=== PATIENT | female | born 1955 ===

== ENCOUNTER 2016-12-17 23:56 | Inpatient (IN) | payer MEDICAID ==
[2016-12-17 23:56] VITALS: BMI 19.5
[2016-12-18 00:55] LABS: BASO % 0.1 % (0.0-2.0); EOS % 0.2 % (0.0-4.0); HEMATOCRIT 31.7 % (34.0-47.0); LYMPH % 9.7 % (20.0-40.0); MEAN CORPUSCULAR HEMOGLOBIN 26.7 pg (27.0-31.0); MEAN CORPUSCULAR HGB CONC 30.9 g/dL (33.0-37.0); MEAN PLATELET VOLUME 7.5 fl (7.2-11.7); MONO # 0.9 K/uL (0.0-0.8); NEUT # 8.2 K/uL (1.8-7.0); NRBC % 0.1 % (0.0-0.0); PLATELET COUNT 276 K/uL (130-400); RED CELL DISTRIBUTION WIDTH 16.9 % (11.5-14.5); WHITE BLOOD COUNT 10.2 K/uL (4.8-10.8)
[2016-12-18 00:56] LABS: MEAN CELL VOLUME 86.5 fl (81.0-99.0)
[2016-12-18] MEDS ORDERED: Sodium Chloride 0.9% 1,000 ML IV STA (01:08)
[2016-12-18 01:14] LABS: PARTIAL THROMBOPLASTIN TIME 24.9 SECONDS (23.3-32.5)
[2016-12-18 01:18] LABS: ALB/GLOB RATIO 0.9 (1.0-2.1); ALKALINE PHOSPHATASE 105 U/L (38-126); ALT/SGPT 21 U/L (9-52); AST/SGOT 18 U/L (14-36); BILIRUBIN,TOTAL 0.2 mg/dl (0.2-1.3); BLOOD UREA NITROGEN 36 mg/dl (7-17); CARBON DIOXIDE 25 mmol/L (22-30); CHLORIDE 102 mmol/L (98-107); GFR AFRICAN-AMERICAN > 60; GLUCOSE,RANDOM 354 mg/dL (65-105); POTASSIUM 4.7 MMOL/L (3.6-5.0); SODIUM 133 mmol/l (132-148); TOTAL PROTEIN 6.3 G/DL (6.3-8.2)
[2016-12-18 01:23] LABS: CALCIUM 13.2 mg/dL (8.4-10.2)
[2016-12-18 02:04] LABS: NEUTROPHIL 81 % (42-75); TOTAL CELLS COUNTED 100
--- NOTE | 2016-12-18 02:58 | ED PDOC ---
HPI: Trauma/Fall - HPI Time Seen by Provider: 12/18/16 00:13 Chief Complaint (Nursing): Trauma Chief Complaint (Provider): Fall History Per: Patient History/Exam Limitations: no limitations Onset/Duration Of Symptoms: Hrs Injury Occurred (Timing): Just Before Arrival Associated Symptoms: denies: Dizziness, LOC Additional Complaint(s): Leticia Poon, a 61 year old female, with a PMHx of Diabetes, kidney failure with renal transplant and hypertension presents to the ED for a fall. The patient states that she lost her balance and fell to the ground prior to arrival. Denies loss of consciousness and dizziness.. She states that she is presenting to the ED because she hit her head when she fell. Provider noticed that the patient is cachectic and pale. Her son states that she has lost 50lbs in the past year and has not seen a medical provider. Denies fever, cough, shortness of breath or chest pain but does admit to weakness, fatigue and dyspnea on exertion. The patient also reports that 1 year ago she had an episode of diverticulosis and she was suppose to have a colonoscopy but never completed her work up. Past Medical History Reviewed: Historical Data, Nursing Documentation, Vital Signs (Diverticulosis) Vital Signs: Last Vital Signs Temp 98 F 12/18/16 00:00 Pulse 98 H 12/18/16 00:00 Resp 18 12/18/16 00:00 BP 104/94 H 12/18/16 00:00 Pulse Ox 98 12/18/16 00:00 - Medical History PMH: Diabetes, HTN, Hypercholesterolemia, Chronic Kidney Disease (kidney transplant) Other PMH: Diverticulosis - Surgical History Surgical History: - Family History Family History: States: Unknown Family Hx - Social History Current smoker - smoking cessation education provided: No Ex-Smoker (has not smoked in the last 12 months): No Alcohol: None Drugs: Denies - Home Medications Home Medications: Ambulatory Orders Medication Instructions Recorded Cinacalcet [Sensipar] 30 mg PO DAILY 12/18/16 Mycophenolate [Cellcept Cap] 250 mg PO BID 12/18/16 Prednisolone [Millipred] 5 mg PO DAILY 12/18/16 Sulfamethoxazole/Trimethoprim 1 tab PO MWF 12/18/16 [Bactrim SS Tab] Tacrolimus [Prograf] 5 mg PO BID 12/18/16 amLODIPine [Norvasc] 5 mg PO DAILY 12/18/16 - Allergies Allergies/Adverse Reactions: Allergies Allergy/AdvReac Type Severity Reaction Status Date / Time cefazolin Allergy ITCHING Verified 03/13/16 12:44 iodine Allergy ITCHING Verified 03/13/16 12:44 vancomycin Allergy ITCHING Verified 03/13/16 12:44 Review of Systems ROS Statement: Except As Marked, All Systems Reviewed And Found Negative Constitutional: Positive for: Weakness, Other (fatigue). Negative for: Fever Cardiovascular: Negative for: Chest Pain Respiratory: Positive for: SOB with Exertion. Negative for: Cough, Shortness of Breath Physical Exam - Reviewed Nursing Documentation Reviewed: Yes Vital Signs Reviewed: Yes - Physical Exam Appears: Positive for: No Acute Distress (Very pale, Extremely cachectic.) Skin: Positive for: Normal Color, Warm, Dry Eye Exam: Positive for: Normal appearance, EOMI, PERRL ENT: Positive for: Normal ENT Inspection Neck: Positive for: Normal, Painless ROM, Supple Cardiovascular/Chest: Positive for: Regular Rate, Rhythm, Chest Non Tender. Negative for: Tachycardia Respiratory: Positive for: Normal Breath Sounds. Negative for: Wheezing, Respiratory Distress Gastrointestinal/Abdominal: Positive for: Normal Exam, Bowel Sounds. Negative for: Tenderness Back: Positive for: Normal Inspection Extremity: Positive for: Normal ROM. Negative for: Tenderness, Deformity, Swelling Neurologic/Psych: Positive for: Alert, Oriented - Laboratory Results Result Diagrams: 12/18/16 00:48 12/18/16 00:48 - ECG O2 Sat by Pulse Oximetry: 98 (RA) Pulse Ox Interpretation: Normal Medical Decision Making Medical Decision Makin Initial Impression: 61 year old female presenting with fall in setting of severe cachexia and pathological weight loss. Initial Plan: * Type and screen * CT Chest * ABD, PEL w/ IV&PO Contrast * CT Head w/o contrast * EKG * CMP * EKG * CBC * PTT * Prothrombin time * Morphine 2mg IVP * NS 1000mg * IV 125 mls/hr * Zofran INJ4mg * Urinalysis * Admit [address] El for admission. 0456 [address] Head Without Intravenous Contrast IMPRESSION: 1. No intracranial hemorrhage. 2. Incidental/non-acute findings are described above. 0526 CT Chest Without Intravenous Contrast IMPRESSION: 1. Thyroid nodule. Followup as clinically warranted. 2. Incidental/non-acute findings are described above. 0526 CT Abdomen and Pelvis Without Intravenous Contrast IMPRESSION: 1. Giant sigmoid diverticula/pseudodiverticula with associated inflammation. Recommend surgical consultation. 2. Possible mild cystitis related to adjacent inflammation. 3. Incidental/non-acute findings are described above. Scribe Attestation Documented by Nicolette Chatterjee acting as a scribe for Claudy Merino MD. Provider Attestation All medical record entries made by the Scribe were at my direction and personally dictated by me. I have reviewed the chart and agree that the record accurately reflects my personal performance of the history, physical exam, medical decision making, and the department course for this patient. I have also personally directed, reviewed, and agree with the discharge instructions and disposition Disposition - Clinical Impression Clinical Impression: Diverticulosis, Cachexia, Unexplained weight loss - Patient ED Disposition Is Patient to be Admitted: Yes Discussed With : Sasha El Counseled Patient/Family Regarding: Studies Performed, Diagnosis - Disposition Disposition Time: 05:56 Condition: FAIR - Pt Status Changed To: Hospital Disposition Of: Inpatient - Admit Certification Admit to Inpatient:: After my assessment, the patient will require hospitalization for at least two midnights. This is because of the severity of symptoms shown, intensity of services needed, and/or the medical risk in this patient being treated as an outpatient. - POA Present On Arrival: None
--- NOTE | 2016-12-18 04:57 | CT ---
EXAM: CT Head Without Intravenous Contrast CLINICAL HISTORY: 61 years old, female; Injury or trauma; Fall; Initial encounter; Blunt trauma (contusions or hematomas) TECHNIQUE: Axial computed tomography images of the head/brain without intravenous contrast. This CT exam was performed using one or more of the following dose reduction techniques: automated exposure control, adjustment of the mA and/or kV according to patient size, and/or use of iterative reconstruction technique. Coronal and sagittal reformatted images were created and reviewed. COMPARISON: CT - HEAD W/O CONTRAST 08/06/2016 12:10:01 PM FINDINGS: Brain: Mild atrophy. No intracranial hemorrhage. No mass. No edema. Ventricles: No hydrocephalus. Bones/joints: No acute fracture. Soft tissues: Unremarkable. Vasculature: Atherosclerotic disease of intracranial arteries. Sinuses: Tiny RIGHT sphenoid retention cyst. Mastoid air cells: No mastoid effusion. Orbits: Unremarkable as visualized. IMPRESSION: 1. No intracranial hemorrhage. 2. Incidental/non-acute findings are described above.
--- NOTE | 2016-12-18 05:27 | CT ---
EXAM: CT Chest Without Intravenous Contrast CLINICAL HISTORY: 61 years old, female; Signs and symptoms; Other: Weight loss; Prior surgery; Surgery date: 6+ months; Surgery type: Rt kidney transplant. ; Additional info: Pathologic weight loss TECHNIQUE: Axial computed tomography images of the chest without intravenous contrast. This CT exam was performed using one or more of the following dose reduction techniques: automated exposure control, adjustment of the mA and/or kV according to patient size, and/or use of iterative reconstruction technique. Coronal and sagittal reformatted images were created and reviewed. COMPARISON: No relevant prior studies available. FINDINGS: Limitations: Lack of intravenous contrast. Lungs: No consolidation. Pleural space: No pneumothorax. No significant effusion. Heart: No cardiomegaly. No significant pericardial effusion. Coronary artery calcifications. Thyroid: 3.5 x 2.8 x 4.3 cm nodule within RIGHT lobe of thyroid. Few scattered calcifications. Bones/joints: Few healed rib fractures. Mild degenerative changes of spine. Soft tissues: RIGHT axillary stent. Vasculature: Mild atherosclerotic disease of aorta. No aneurysm. Grafts within upper extremities. Lymph nodes: No pathologically enlarged lymph nodes. IMPRESSION: 1. Thyroid nodule. Followup as clinically warranted. 2. Incidental/non-acute findings are described above. EXAM: CT Abdomen and Pelvis Without Intravenous Contrast CLINICAL HISTORY: 61 years old, female; Signs and symptoms; Other: Weight loss; Prior surgery; Surgery date: 6+ months; Surgery type: Rt kidney transplant. ; Additional info: Pathologic weight loss TECHNIQUE: Axial computed tomography images of the abdomen and pelvis without intravenous contrast. This CT exam was performed using one or more of the following dose reduction techniques: automated exposure control, adjustment of the mA and/or kV according to patient size, and/or use of iterative reconstruction technique. Coronal and sagittal reformatted images were created and reviewed. COMPARISON: CT - ABD PELVIS W/O PO OR IV CONT 09/23/2016 11:15:28 PM FINDINGS: Limitations: Lack of intravenous contrast. ABDOMEN: Liver: Unremarkable. Gallbladder and bile ducts: Calcified gallstones. No ductal dilation. Pancreas: Unremarkable. No ductal dilation. Spleen: No splenomegaly. Adrenals: No mass. Kidneys and ureters: Atrophic [place] kidneys. Renal transplant with small cyst within RIGHT iliac fossa. No hydronephrosis. Stomach and bowel: Several scattered diverticula within colon. Two large outpouchings along sigmoid colon, approximately 6.8 x 6.4 x 7.1 cm and 7.3 x 5.5 x 5.2 cm. Mild to moderate mural thickening of large outpouchings with mild adjacent stranding. No obstruction. Appendix: Normal caliber. No inflammation. PELVIS: Bladder: Minimal stranding along anterior/superior wall of bladder. No stones. Reproductive: Unremarkable as visualized. ABDOMEN and PELVIS: Intraperitoneal space: No significant fluid collection. No free air. Bones/joints: Mild degenerative changes of spine. No acute fracture. Soft tissues: Unremarkable. Vasculature: Moderate atherosclerotic disease of visualized arteries. Moderate atherosclerotic disease of visualized arteries. No abdominal aortic aneurysm. Lymph nodes: No pathologically enlarged lymph nodes. IMPRESSION: 1. Giant sigmoid diverticula/pseudodiverticula with associated inflammation. Recommend surgical consultation. 2. Possible mild cystitis related to adjacent inflammation. 3. Incidental/non-acute findings are described above. THIS REPORT CONTAINS FINDINGS THAT MAY BE CRITICAL TO PATIENT CARE. The findings were verbally communicated via telephone conference with Claudy Schneider at 5:26 AM EDT on 12/18/2016. The findings were acknowledged and understood.
[2016-12-18] MEDS ORDERED: Chlorhexidine Gluconate 1 APPL/PKT TP ONE (07:23)
--- NOTE | 2016-12-18 08:01 | CARD ---
APPROVED REPORT EKG Measurement Heart [id number] <Conclusion> Normal sinus rhythm Normal ECG
--- NOTE | 2016-12-18 08:31 | CP.PCM.CON ---
<Alex Zhu - Last Filed: 12/18/16 09:29> History of Present Illness - History of Present Illness History of Present Illness: SURGERY CONSULT NOTE FOR DR. WILSON 61F presents to [facility] for a fall that occurred at home. She states that her knees gave out and she landed on her back. Patient complains of lower back pain and right shoulder pain from the fall. Surgery was consulted for abdominal pain and CT findings. Patient states she has been having on and off abdominal pain for months that has not grown in intensity. She points to the pain in the suprapubic region. Abdominal pain is sometimes associated with vomiting of food when she eats. She denies blood in the vomitus. Pain is also associated with change in bowel habits. She states she sometimes has difficultly having a bowel movement. When she does have a bowel movement she states she sometimes see blood in the stool. Patient states this has been going on for a while. She also admits to loss of appetite and significant weight loss ("im now under 80 lbs"). Patient was supposed to get a colonoscopy 3 months ago but states she was ill that day and it was postponed. PMH: DM, HTN PSH: kidney transplant, 2 c-sections Social: Denies tobacco, denies alcohol, denies illicit drugs Allergies: Vancomycin, Ancef, Iodine Past Patient History - Infectious Disease Hx of Infectious Diseases: None - Past Medical History & Family History Past Medical History?: Yes - Past Social History Alcohol: None Drugs: Denies - CARDIAC Hx Hypercholesterolemia: Yes Hx Hypertension: Yes - PULMONARY Hx Respiratory Disorders: No - NEUROLOGICAL Hx Neurological Disorder: No - HEENT Hx HEENT Problems: No - RENAL Hx Chronic Kidney Disease: Yes (kidney transplant) - ENDOCRINE/METABOLIC Hx Endocrine Disorders: Yes - HEMATOLOGICAL/ONCOLOGICAL Hx Blood Disorders: No - INTEGUMENTARY Hx Dermatological Problems: No - MUSCULOSKELETAL/RHEUMATOLOGICAL Hx Musculoskeletal Disorders: Yes (gout) Hx Falls: No Hx Gout: Yes - GASTROINTESTINAL Hx Gastrointestinal Disorders: Yes Hx Colitis: Yes - GENITOURINARY/GYNECOLOGICAL Hx Genitourinary Disorders: Yes (UTI) Hx Urinary Tract Infection: Yes - PSYCHIATRIC Hx Psychophysiologic Disorder: No Hx Substance Use: No - SURGICAL HISTORY Hx Surgeries: Yes Hx Arteriovenous Shunt: Yes Hx Section: Yes Hx Vascular Access Device: Yes Other/Comment: RIGHT KIDNEY TRANSPLANT - ANESTHESIA Hx Anesthesia: Yes Hx Anesthesia Reactions: No Hx Malignant Hyperthermia: No Meds Allergies/Adverse Reactions: Allergies Allergy/AdvReac Type Severity Reaction Status Date / Time cefazolin Allergy ITCHING Verified 03/13/16 12:44 iodine Allergy ITCHING Verified 03/13/16 12:44 vancomycin Allergy ITCHING Verified 03/13/16 12:44 - Medications Medications: Current Medications Sodium Chloride (Sodium Chloride 0.9%) 1,000 mls @ 125 mls/hr IV .Q8H STA Stop: 12/18/16 09:07 Last Admin: 12/18/16 01:13 Dose: 125 mls/hr Physical Exam - Constitutional Appears: Non-toxic, No Acute Distress, Cachectic - Head Exam Head Exam: ATRAUMATIC - Eye Exam Eye Exam: EOMI, PERRL - ENT Exam ENT Exam: Mucous Membranes Dry - Respiratory Exam Respiratory Exam: Clear to Auscultation Bilateral, NORMAL BREATHING PATTERN - Cardiovascular Exam Cardiovascular Exam: REGULAR RHYTHM, +S1, +S2 - GI/Abdominal Exam GI & Abdominal Exam: Soft, Tenderness (supra-pubic). absent: Distended, Firm, Guarding, Rebound, Rigid - Rectal Exam Rectal Exam: Hemorrhoids (external) Additional comments: stool in rectal vault, stool was maroon in color. - Extremities Exam Extremities exam: Negative for: pedal edema, tenderness - Neurological Exam Neurological exam: Alert, Oriented x3 - Psychiatric Exam Psychiatric exam: Normal Affect, Normal Mood - Skin Skin Exam: Dry, Intact, Normal Color, Warm Results - Vital Signs Recent Vital Signs: Last Vital Signs Temp 97.8 F 12/18/16 06:30 Pulse 78 12/18/16 06:30 Resp 19 12/18/16 06:30 BP 127/69 12/18/16 06:30 Pulse Ox 98 12/18/16 06:36 - Labs Result Diagrams: 12/18/16 00:48 12/18/16 00:48 Assessment & Plan - Assessment and Plan (Free Text) Assessment: 61F presents with Fall, loss of appetite, weight loss and abdominal pain CT Head: negative for acute hemorrhage CT chest/abd/pelvis: Thyroid nodule on right lobe (3.5*2.8*4.3cm) 2 large outpouching in the sigmoid colon with mild to moderate mural thickening of large out-pouching with adjacent stranding. (6.4*6.8*7.1 and 7.3*5.5*5.2), kidney transplanted in right iliac region with cyst in that area, stranding anterior and superior to bladder) Plan: - Recommend GI consult for patient for possible colonoscopy - Monitor labs - Serial abdominal exams - Continue current diet - Will re-evaluated patient with Attending in afternoon Case discussed with Dr. Steve Zhu, PGY1 <Reno Wilson - Last Filed: 12/18/16 11:27> History of Present Illness - History of Present Illness History of Present Illness: Patient was seen and examined at the bedside. Agree with resident's note above. Meds - Medications Medications: Current Medications Amlodipine Besylate (Norvasc) 5 mg PO DAILY BEN Cinacalcet (Sensipar) 30 mg PO DAILY BEN Home Med (Prednisolone [Millipred]) 5 mg PO DAILY BEN Sodium Chloride (Sodium Chloride 0.9%) 1,000 mls @ 70 mls/hr IV .[id number] BEN Stop: 12/19/16 09:34 Mycophenolate Mofetil (Cellcept Cap) 250 mg PO BID BEN Tacrolimus (Prograf Cap) 5 mg PO BID BEN Trimethoprim/Sulfamethoxazole (Bactrim Ss Tab) 1 tab PO MWF BEN Results - Vital Signs Recent Vital Signs: Last Vital Signs Temp 97.8 F 12/18/16 06:30 Pulse 78 12/18/16 06:30 Resp 19 12/18/16 06:30 BP 127/69 12/18/16 06:30 Pulse Ox 98 12/18/16 06:36 - Labs Result Diagrams: 12/18/16 00:48 12/18/16 00:48 Assessment & Plan - Assessment and Plan (Free Text) Plan: - Recommend GI evaluation - No general surgery intervention at present time
[2016-12-18] MEDS ORDERED: Sodium Chloride 0.9% 1,000 ML IV SCH (09:45)
[2016-12-18] MEDS ORDERED: Insulin Regular 100 units/ml SC SCH (11:30)
[2016-12-18 12:33] LABS: MAGNESIUM 1.2 MG/DL (1.6-2.3); PHOSPHOROUS 2.1 mg/dl (2.5-4.5)
[2016-12-18] MEDS ORDERED: Magnesium Oxide 400 mg Tab UD PO ONE (14:11)
--- NOTE | 2016-12-18 16:31 | RAD ---
PROCEDURE: Radiographs of the Lumbar Spine. HISTORY: lower back pain, s/p fall COMPARISON: No prior. FINDINGS: BONES: There is an age indeterminate mild superior endplate compression deformity in the L3 vertebral body. There is diffuse bone demineralization. There is normal alignment of the lumbar vertebral bodies. Lumbar lordosis is maintained. DISC SPACES: There are multilevel degenerative changes in the spine with anterior osteophytes, reduced heights and multilevel facet arthropathy, worse at L3-4. OTHER FINDINGS: None. IMPRESSION: Age indeterminate superior endplate compression deformity in the L3 vertebral body. Multilevel degenerative changes, worse at L3-4.
[2016-12-18] MEDS: Insulin Lispro (humaLOG) 100 Units/ml Inj SC SCH ×3 (17:18→22:09)
[2016-12-18] MEDS: Potassium & Sodium Phosphate PO SCH (18:32)
[2016-12-18] MEDS: Sodium Chloride 0.9% 1,000 ML IV SCH (18:38)
[2016-12-18] MEDS ORDERED: Insulin Detemir 100 Units/ml Inj SC SCH (22:00)
--- NOTE | 2016-12-18 23:57 | CP.PCM.HP ---
History of Present Illness - History of Present Illness History of Present Illness: A 61 yr old femlae with hx of kidney transplant 2004 ON MEDS CAME WITH C\O BACK PAIN, HEADACHE AFTER FALL at home ,also found to extremely lethargic, weight loss about 40 lbs in few months. CT abdomen showed large divertiulum Present on Admission - Present on Admission Any Indicators Present on Admission: No Review of Systems - Constitutional Constitutional: Anorexia, Lethargy, Malaise, Weight Loss. absent: Fever - EENT Nose/Mouth/Throat: absent: Sinus Pain, Sore Throat, Neck Pain - Cardiovascular Cardiovascular: absent: Chest Pain, Dyspnea, Leg Edema, Paroxysmal Nocturnal Dyspnea, Pedal Edema - Respiratory Respiratory: absent: Cough, Wheezing, Chest Congestion, Excessive Mucous Production - Gastrointestinal Gastrointestinal: absent: Abdominal Pain, Dyspepsia, Nausea, Odynophagia - Genitourinary Genitourinary: absent: Urinary Frequency - Musculoskeletal Musculoskeletal: Arthralgias, Limited Range of Motion, Myalgias - Integumentary Integumentary: absent: Lesions, Sores - Neurological Neurological: Weakness. absent: Dizziness, Other Visual Disturbances - Psychiatric Psychiatric: Change in Appetite. absent: Behavioral Changes, Hallucinations, Visual Hallucinations - Endocrine Endocrine: Fatigue. absent: Palpitations - Hematologic/Lymphatic Hematologic: absent: Lymphadenopathy Past Patient History - Infectious Disease Hx of Infectious Diseases: None - Past Medical History & Family History Past Medical History?: Yes - Past Social History Smoking Status: Never Smoked - CARDIAC Hx Hypercholesterolemia: Yes Hx Hypertension: Yes - PULMONARY Hx Respiratory Disorders: No - NEUROLOGICAL Hx Neurological Disorder: No - HEENT Hx HEENT Problems: No - RENAL Hx Chronic Kidney Disease: Yes (kidney transplant) - ENDOCRINE/METABOLIC Hx Endocrine Disorders: Yes - HEMATOLOGICAL/ONCOLOGICAL Hx Blood Disorders: No - INTEGUMENTARY Hx Dermatological Problems: No - MUSCULOSKELETAL/RHEUMATOLOGICAL Hx Falls: Yes - GASTROINTESTINAL Hx Gastrointestinal Disorders: Yes Hx Colitis: Yes - GENITOURINARY/GYNECOLOGICAL Hx Genitourinary Disorders: Yes (UTI) Hx Urinary Tract Infection: Yes - PSYCHIATRIC Hx Substance Use: No - SURGICAL HISTORY Hx Surgeries: Yes Hx Arteriovenous Shunt: Yes Hx Section: Yes Hx Vascular Access Device: Yes Other/Comment: RIGHT KIDNEY TRANSPLANT - ANESTHESIA Hx Anesthesia: Yes Hx Anesthesia Reactions: No Hx Malignant Hyperthermia: No Meds Home Medications: Home Medication List Medication Instructions Recorded Confirmed Type Ciprofloxacin IV [Cipro] 200 mg IVPB Q12 #8 vial 12/21/16 Rx Docusate [Colace] 100 mg PO BID PRN cap 12/21/16 Rx Famotidine [Pepcid] 20 mg PO DAILY tab 12/21/16 Rx Iron Sucrose [Venofer] 100 mg IV DAILY #4 vial 12/21/16 Rx Phosphorus/Potassium/Sodium 1 pkt PO BID packet 12/21/16 Rx [Neutra-Phos] Repaglinide [Prandin] 0.5 mg PO TIDAC tab 12/21/16 Rx SITagliptin [Januvia] 25 mg PO DAILY tab 12/21/16 Rx Sulfamethoxazole/Trimethoprim 1 tab PO MWF tab 12/21/16 Rx [Bactrim SS Tab] Tacrolimus [Prograf Cap] 5 mg PO BID cap 12/21/16 Rx metroNIDAZOLE [Flagyl] 500 mg PO Q8 #15 tab 12/21/16 Rx Allergies/Adverse Reactions: Allergies Allergy/AdvReac Type Severity Reaction Status Date / Time cefazolin Allergy ITCHING Verified 03/13/16 12:44 iodine Allergy ITCHING Verified 03/13/16 12:44 vancomycin Allergy ITCHING Verified 03/13/16 12:44 Physical Exam - Constitutional Appears: No Acute Distress, Cachectic, Chronically Ill - Head Exam Head Exam: ATRAUMATIC, NORMOCEPHALIC - Eye Exam Eye Exam: EOMI, PERRL. absent: Scleral icterus - ENT Exam ENT Exam: Mucous Membranes Dry - Neck Exam Neck exam: Negative for: Lymphadenopathy - Respiratory Exam Respiratory Exam: Clear to Auscultation Bilateral, NORMAL BREATHING PATTERN - Cardiovascular Exam Cardiovascular Exam: REGULAR RHYTHM, +S1, +S2 - GI/Abdominal Exam GI & Abdominal Exam: Normal Bowel Sounds, Soft, Tenderness Additional comments: mid abdominal area - Exam External exam: NORMAL EXTERNAL EXAM - Extremities Exam Extremities exam: Positive for: normal inspection, pedal pulses present - Neurological Exam Neurological exam: Alert, CN II-XII Intact, Oriented x3 - Psychiatric Exam Psychiatric exam: Flat Affect - Skin Skin Exam: Intact Results - Vital Signs Recent Vital Signs: Last Vital Signs Temp 99.4 F 12/18/16 15:57 Pulse 105 H 12/18/16 16:09 Resp 20 12/18/16 15:57 BP 114/68 12/18/16 15:57 Pulse Ox 94 L 12/18/16 16:09 - Labs Result Diagrams: 12/21/16 06:35 12/21/16 06:35 Labs: Laboratory Results - last 24 hr 12/18/16 12/18/16 12/18/16 11:20 11:20 11:57 POC Glucose (mg/dL) 288 H Hemoglobin A1c 7.3 H Phosphorus 2.1 L Magnesium 1.2 L Stool Occult Blood 12/18/16 12/18/16 12/18/16 16:05 16:57 21:27 POC Glucose (mg/dL) 238 H 102 Hemoglobin A1c Phosphorus Magnesium Stool Occult Blood Positive H - EKG Data EKG Interpreted by: Other EKG shows normal: Sinus rhythm - Imaging and Cardiology CT scan - chest Status: Report reviewed by me CT scan - head Status: Report reviewed by me Assessment & Plan (1) Diverticulitis Status: Acute (2) Hypercalcemia Status: Acute (3) DM2 (diabetes mellitus, type 2) Status: Chronic - Assessment and Plan (Free Text) Plan: 1. IVF 2. Accuchecks\RISS 3. iv abx 4. GI\GI SXconsult 4.f\u calcium, PTH 5,nephrology consult. Decision To Admit - Pt Status Changed To: Hospital Disposition Of: Inpatient - Admit Certification Admit to Inpatient:: After my assessment, the patient will require hospitalization for at least two midnights. This is because of the severity of symptoms shown, intensity of services needed, and/or the medical risk in this patient being treated as an outpatient. - . Bed Request Type: Med/Surg Admitting Physician: Sasha El
[2016-12-19 06:08] LABS: RBC URINE < 1 /hpf (0-3); URINE BACTERIA RARE (<OCC); URINE BILIRUBIN NEGATIVE (NEGATIVE); URINE BLOOD NEGATIVE (NEGATIVE); URINE COLOR YELLOW (YELLOW); URINE GLUCOSE (UA) NEG (Normal); URINE KETONE NEGATIVE (NEGATIVE); URINE LEUKOCYTE ESTERASE NEG Leu/uL (Negative); URINE PROTEIN NEGATIVE (NEGATIVE); URINE UROBILINOGEN 0.2-1.0 mg/dL (0.2-1.0); WBC URINE 3 /hpf (0-5)
[2016-12-19] MEDS: Insulin Lispro (humaLOG) 100 Units/ml Inj SC SCH ×6 (07:15→21:18)
[2016-12-19 07:25] LABS: BASO % 0.1 % (0.0-2.0); HEMATOCRIT 27.2 % (34.0-47.0); LYMPH # 0.5 K/uL (1.0-4.3); LYMPH % 3.7 % (20.0-40.0); MEAN CELL VOLUME 85.7 fl (81.0-99.0); MEAN CORPUSCULAR HEMOGLOBIN 26.8 pg (27.0-31.0); MEAN CORPUSCULAR HGB CONC 31.3 g/dL (33.0-37.0); MEAN PLATELET VOLUME 7.3 fl (7.2-11.7); MONO # 0.8 K/uL (0.0-0.8); MONO % 5.6 % (0.0-10.0); NEUT # 13.2 K/uL (1.8-7.0); NEUT % 90.6 % (50.0-75.0); PLATELET COUNT 254 K/uL (130-400); WHITE BLOOD COUNT 14.6 K/uL (4.8-10.8)
[2016-12-19 07:33] LABS: ALKALINE PHOSPHATASE 85 U/L (38-126); ALT/SGPT 24 U/L (9-52); AST/SGOT 12 U/L (14-36); BILIRUBIN,TOTAL 0.1 mg/dl (0.2-1.3); BLOOD UREA NITROGEN 23 mg/dl (7-17); CALCIUM 12.1 mg/dL (8.4-10.2); CARBON DIOXIDE 23 mmol/L (22-30); CHLORIDE 108 mmol/L (98-107); GFR AFRICAN-AMERICAN > 60; GLUCOSE,RANDOM 45 mg/dL (65-105); MAGNESIUM 1.1 MG/DL (1.6-2.3); PHOSPHOROUS 2.4 mg/dl (2.5-4.5); POTASSIUM 4.2 MMOL/L (3.6-5.0); SODIUM 139 mmol/l (132-148); TOTAL PROTEIN 5.5 G/DL (6.3-8.2)
[2016-12-19 07:38] LABS: ALB/GLOB RATIO 0.8 (1.0-2.1)
[2016-12-19 07:42] LABS: T4 4.69 ug/dl (5.5-11.0)
[2016-12-19 07:56] LABS: THYROID STIMULATING HORMONE 0.38 mIU/ML (0.46-4.68)
--- NOTE | 2016-12-19 08:17 | CON ---
DATE: 12/18/2016 ROOM: 652 HISTORY OF PRESENT ILLNESS: This is a 61-year-old female with known history of type 2 diabetes and h ypertension, presenting here with a recent accidental fall and is being referred now for endocrine ev aluation because of supervening hypercalcemia as noted thereof. PAST MEDICAL HISTORY: History of type 2 diabetes, on oral hypoglycemic therapy, taking glipizide at 5 mg b.i.d., but has been off the medications for a month or so now at this time; history of hyperten narinder and dyslipidemia; history of diabetic retinopathy, polyneuropathy and previous nephropathy with end-stage renal disease and received a renal transplant in 2005 at [facility]. She is currently following with Dr. Glez, her local exercise science instructor. History of diverticulosis, and appare ntly at this time the CAT scan showed a giant diverticula with pending surgical evaluation; history o f progressive weight loss, etiology of which has to be ascertained which the patient ascribes to galilea ed anorexia and dyspepsia and apparently has not been seen by her local medical doctor for close to a year now. FAMILY HISTORY: Positive for hypertension and heart disease. SOCIAL HISTORY: The patient has supportive family. No known substance use. REVIEW OF SYSTEMS: As mentioned above, admits to generalized body weakness with easy fatigability an d tiredness and suboptimal energy level. Also admits to episodic dizziness and lightheadedness, wors e on the day of admission. No chest pains or palpitations or PNDs. Her oral intake is very nil and poor and suboptimal with persistent nausea, dyspepsia, and habitual constipation. Also admits to pro gressive weight loss of over 50 pounds over the past 6 months or more prior to admission. PHYSICAL EXAMINATION: GENERAL: This is asthenic, cachectic and chronically ill looking female in no apparent distress. VITAL SIGNS: Blood pressure of 120/70, pulse of 100 beats per minute and regular, temperature 98, re spirations 20. Height is 4 feet 11 and weight is 85 pounds. HEENT: Head normocephalic. Eyes anicteric with pink conjunctivae. Fundoscopy not possible at this time. Ears, nose and throat otherwise normal. NECK: Supple. Thyroid gland shows nodular thyromegaly which is firm and nontender. HEART: Shows hyperdynamic precordium. S1, S2 are rapid and regular. LUNGS: Clear to auscultation. ABDOMEN: Flat, soft with positive bowel sounds. EXTREMITIES: No peripheral edema. Pulses are +2 bilaterally. LABORATORY DATA: Her chemistries showed a BUN of 36, sodium 133, potassium 4.7, chloride 102, CO2 of 25, glucose 354 and creatinine 1.1. Her glucose levels have ranged from 288-354 mg/dL. ASSESSMENT: This is a 61-year-old female with uncontrolled and decompensated type 2 insulin-requirin g diabetes, presenting here with dehydration and prerenal azotemia with progressive weight loss and s upervening marked symptomatic hypercalcemia. The most plausible etiology would be dehydration, but w e also have to exclude an underlying parathyroid versus nonparathyroid etiology. There is always the possibility of a humoral hypercalcemia of malignancy versus osteolytic-related etiology of hypercalc emia, and further workup would exclude the aforementioned possibilities. From the endocrine viewpoin t, we have to exclude the primary hyperparathyroidism versus humoral hypercalcemia of malignancy with elevated parathyroid hormone related peptide. Moreover, due to aforementioned metabolic decompensat ion and supervening hyperglycemic accelerations, this will also contribute to progressive weight loss and dehydration as noted thereof. She also has a nodular goiter with CAT scan evidence of calcifica tions in the thyroid lobes and a dominant nodule in the right lobe as noted, so she really has an und erlying multinodular goiter with a dominant nodule and, again, the possibility of an underlying thyro id malignancy also has to be excluded and the comprehensive workup will be undertaken thereof. PLAN OF MANAGEMENT: As discussed with the staff, with the nurse practitioner and the patient at [facility], will obtain a comprehensive metabolic workup and do a total and free T4 ____. PLAN OF MANAGEMENT: Will obtain a thyroglobulin panel to include the thyroid antibodies and also a q uantitative thyroglobulin which to exclude the possibility of underlying papillary thyroid carcinoma, especially with the presence of calcifications in the thyroid lobes. Will obtain a hemoglobin A1c t o confirm her prior glycemic control, and baseline thyroid studies will be done tomorrow with a total and free T4 and TSH, and also a PTH and PTH related peptide have been obtained. Will follow and adv ise accordingly. Evie Wellington MD cc: [id number] TT: 12/18/2016 15:52:00 Confirmation # [id number] Dictation # [id number] mn
--- NOTE | 2016-12-19 08:22 | CP.PCM.PN ---
<Neftali Coates - Last Filed: 12/19/16 08:20> Subjective - Date & Time of Evaluation Date of Evaluation: 12/19/16 Time of Evaluation: 08:20 - Subjective Subjective: General Surgery Progress note for Dr. Wilson This 61F was seen and examined this Am at bedside. She reports no acute events overnight. She reports episode of hypoglycemia this AM. 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 She deneis any fevers, chills , chest pain, nasuea vomiting. She admits to flatus however she denies any BM. Objective - Vital Signs/Intake and Output Vital Signs (last 24 hours): Temp Pulse Resp BP Pulse Ox 98.2 F 96 H 20 150/77 96 12/19/16 00:53 12/19/16 00:53 12/19/16 00:53 12/19/16 00:53 12/19/16 00:53 - Medications Medications: Current Medications Amlodipine Besylate (Norvasc) 5 mg PO DAILY [facility] Last Admin: 12/18/16 12:05 Dose: 5 mg Cinacalcet (Sensipar) 30 mg PO DAILY [facility] Last Admin: 12/18/16 12:05 Dose: 30 mg Sodium Chloride (Sodium Chloride 0.9%) 1,000 mls @ 100 mls/hr IV .Q10H [facility] Stop: 12/20/16 10:00 Last Admin: 12/18/16 18:38 Dose: 100 mls/hr Insulin Detemir (Levemir) 20 units SC HS [facility] Last Admin: 12/18/16 22:13 Dose: 20 units Insulin Human Lispro (Humalog) 0 units SC ACHS [facility] PRN Reason: Protocol Last Admin: 12/19/16 07:15 Dose: Not Given Insulin Human Lispro (Humalog) 6 units SC AC [facility] Last Admin: 12/19/16 08:10 Dose: Not Given Mycophenolate Mofetil (Cellcept Cap) 250 mg PO BID [facility] Last Admin: 12/18/16 18:21 Dose: 250 mg Potassium Phos/Sodium Phos (Neutra-Phos) 1 pkt PO BID [facility] Last Admin: 12/18/16 18:32 Dose: 1 pkt Prednisone (Prednisone Tab) 5 mg PO DAILY [facility] Last Admin: 12/18/16 18:31 Dose: 5 mg Tacrolimus (Prograf Cap) 5 mg PO BID [facility] Last Admin: 12/18/16 18:21 Dose: 5 mg Trimethoprim/Sulfamethoxazole (Bactrim Ss Tab) [address] [facility] [place] - Labs Labs: 12/19/16 06:10 12/19/16 06:10 PT 11.1 SECONDS (9.6-11.2) 12/18/16 00:48 INR 1.07 (0.92-1.08) 12/18/16 00:48 APTT 24.9 SECONDS (23.3-32.5) 12/18/16 00:48 - Constitutional Appears: Non-toxic, No Acute Distress - Head Exam Head Exam: ATRAUMATIC - Eye Exam Eye Exam: EOMI - ENT Exam ENT Exam: Mucous Membranes Moist - Respiratory Exam Respiratory Exam: NORMAL BREATHING PATTERN - Cardiovascular Exam Cardiovascular Exam: REGULAR RHYTHM - GI/Abdominal Exam GI & Abdominal Exam: Soft, Tenderness. absent: Distended, Firm, Guarding, Rigid - Neurological Exam Neurological Exam: Alert, Awake - Psychiatric Exam Psychiatric exam: Normal Affect, Normal Mood - Skin Skin Exam: Dry, Intact Assessment and Plan - Assessment and Plan (Free Text) Assessment: This is a 61F admitted due to a fall, who was found to have weight loss and abdominal pain, she is s/p right sided kidney transplant F/U GI recommendations No Surgical intervention at this time. Will discuss with Dr. Steve Coates PGY-2 <Reno Wilson - Last Filed: 12/19/16 09:50> Subjective - Date & Time of Evaluation Time of Evaluation: 09:15 - Subjective Subjective: Patient was seen and examined at the bedside. Agree with resident's note above. Still has LLQ abdominal pain. Objective - Vital Signs/Intake and Output Vital Signs (last 24 hours): Temp Pulse Resp BP Pulse Ox 97.7 F 75 20 91/50 L 98 12/19/16 09:25 12/19/16 09:31 12/19/16 09:25 12/19/16 09:31 12/19/16 09:25 - Medications Medications: Current Medications Amlodipine Besylate (Norvasc) 5 mg PO DAILY [facility] Last Admin: 12/19/16 09:31 Dose: Not Given Cinacalcet (Sensipar) 30 mg PO DAILY [facility] Last Admin: 12/19/16 09:30 Dose: 30 mg Sodium Chloride (Sodium Chloride 0.9%) 1,000 mls @ 100 mls/hr IV .Q10H [facility] Stop: 12/20/16 10:00 Last Admin: 12/18/16 18:38 Dose: 100 mls/hr Magnesium Sulfate 2 gm/ Sodium (Chloride) 104 mls @ 104 mls/hr IVPB ONCE ONE PRN Reason: 2 GM/HR Stop: 12/19/16 10:19 Insulin Detemir (Levemir) 20 units SC HS [facility] Last Admin: 12/18/16 22:13 Dose: 20 units Insulin Human Lispro (Humalog) 0 units SC ACHS [facility] PRN Reason: Protocol Last Admin: 12/19/16 07:15 Dose: Not Given Insulin Human Lispro (Humalog) 6 units SC AC [facility] Last Admin: 12/19/16 08:10 Dose: Not Given Mycophenolate Mofetil (Cellcept Cap) 250 mg PO BID [facility] Last Admin: 12/19/16 09:32 Dose: 250 mg Potassium Phos/Sodium Phos (Neutra-Phos) 1 pkt PO BID [facility] Last Admin: 12/19/16 09:32 Dose: 1 pkt Prednisone (Prednisone Tab) 5 mg PO DAILY [facility] Last Admin: 12/19/16 09:30 Dose: 5 mg Tacrolimus (Prograf Cap) 5 mg PO BID [facility] Last Admin: 12/19/16 09:30 Dose: 5 mg Trimethoprim/Sulfamethoxazole (Bactrim Ss Tab) 1 tab PO MWF [facility] Last Admin: 12/19/16 09:30 Dose: 1 tab - Labs Labs: 12/19/16 06:10 12/19/16 06:10 PT 11.1 SECONDS (9.6-11.2) 12/18/16 00:48 INR 1.07 (0.92-1.08) 12/18/16 00:48 APTT 24.9 SECONDS (23.3-32.5) 12/18/16 00:48 Assessment and Plan - Assessment and Plan (Free Text) Plan: - Keep NPO - IV fluids - Start antibiotics as per Nephrology due to patient having kidney transplant - GI follow up - Repeat labs in am - Will follow
[2016-12-19] MEDS ORDERED: Magnesium Sulfate 2 GM in Sodium Chloride 0.9% 100 ML IVPB ONE (09:20)
[2016-12-19] MEDS: Tmp-Smz 400 mg-80 mg SS Tab PO SCH (09:30)
[2016-12-19] MEDS: Potassium & Sodium Phosphate PO SCH ×2 (09:32→16:57)
[2016-12-19] MEDS ORDERED: Magnesium Sulfate 2 gm/50 ml 2 GM/50 ML BAG IVPB ONE (10:00)
[2016-12-19] MEDS: Sodium Chloride 0.9% 1,000 ML IV SCH ×2 (10:24→19:46)
[2016-12-19 10:32] LABS: IRON 11 ug/dL (37-170)
[2016-12-19 10:50] LABS: NEUTROPHIL 83 % (42-75); TOTAL CELLS COUNTED 100
[2016-12-19 11:13] LABS: LARGE PLATELETS PRESENT
[2016-12-19] MEDS ORDERED: Glucagon Recombinant 1 mg Inj IM PRN (11:48)
[2016-12-19] MEDS ORDERED: Dextrose 50% SYRINGE Inj (50 ml) IV PRN (11:48)
[2016-12-19] MEDS ORDERED: Ciprofloxacin 200mg/100ml D5W 100 ML IVPB SCH (12:00)
[2016-12-19] MEDS ORDERED: metroNIDAZOLE 500mg/100ml NS 100 ML IVPB SCH (12:00)
[2016-12-19] MEDS: Dextrose 5%/0.9% NS 1,000 ML IV SCH ×2 (13:49→23:00)
--- NOTE | 2016-12-19 14:28 | PQF GENQUE ---
Dr. El, Is there an associated diagnosis(es) to go along with the following clinical labs: WBC:10.2->14.6; H/H:9.8/31.7->8.5/27.2: Band:9 :left shift ; Iron:11;TIBC: 132;Ferritin:1130.0 OR: Disagree OR:Other explanation of clinical findings Admission order: Admitting diagnoses: Cachexia, Pathological Weight Loss, Giant Diverticula H and P in draft Endocrinology work up in progress; GI and Hematology Oncology consults pending Stool OB: positive IV Cipro and Flagyl, Bactrim SS Tab;1 tab PO MWF This form is a permanent part of the medical record Clarification of your documentation is requested to better reflect the severity of illness and intensity of treatment of your patient. Indicators present [] Specify: [] [] Specify: [] [] Specify: [] [] Specify: [] Location in the medical record that reflects the above clinical findings: [] Treatment Provided: [] PHYSICIAN'S RESPONSE Based on your medical judgment of the clinical indicators outlined above please clarify the following: [] Practitioner response [] If unable to determine, please check the box, sign and date. Present On Admission (POA) Indicator: [] Present at the time of admission [] Not present at the time of admission [] Clinically Undetermined In responding to this query, please exercise your independent professional judgment. The fact that a question is asked does not imply that any particular answer is desired or expected. Thank you for your clarification on this documentation. If you have any questions please call. * Thank you, Steff Anderson RN BSN ext. #[phone] MTDD
--- NOTE | 2016-12-19 15:09 | PN ---
DATE: 12/19/2016 ROOM: 652 This is a 61-year-old female presenting here with marked constitutional symptoms and supervening symp tomatic hypercalcemia, currently undergoing metabolic workup at this time, and is also undergoing mal ignancy workup altogether. Her oral intake is extremely poor and suboptimal at this time, and althou gh she presented with hyperglycemic accelerations on admission, her glucose levels overnight have alison pped because of very nil and suboptimal meal portions as per the nursing staff. Her glucose levels have ranged from 62-72 mg/dL. Her latest chemistries include a BUN of 23, sodium 139, potassium 4.2, chloride 108, CO2 23, glucose 45, and creatinine 1.0. Her albumin level is 2.5 w ith a calcium of 12.1 and a corrected calcium of 13.6 mg/dL. ASSESSMENT: This is a 61-year-old female with marked symptomatic hypercalcemia on the background of constitutional symptoms and progressive weight loss and cachexia, and the ongoing workup at this time for either a parathyroid versus nonparathyroid etiology of hypercalcemia versus a humoral hypercalce willie of malignancy is being worked up with ongoing metabolic malignancy workup altogether. Moreover, she also has gastrointestinal related symptoms with a giant diverticulum and supervening weight loss and marked anorexia and dyspepsia and lower pelvic pain, and currently also undergoing a gastrointest inal workup altogether. PLAN OF MANAGEMENT: Will continue the vigorous IV hydration as given and will supplement her electro lyte deficiencies accordingly. However, the PTH levels are pending at this time, her thyroid studies are indicative of the so-called acute sick euthyroid syndrome with no indication for now of any kind of thyroid pharmacotherapy. However, her thyroid ultrasound is still pending at this time and repor ts have yet to be given. She has an underlying nodular goiter with a dominant right thyroid nodule a s noted. She may eventually need a fine needle aspiration biopsy of the dominant thyroid nodule, onc e this is confirmed with a thyroid ultrasound as ordered, and this could be done also on the outpatie nt if the patient is discharged accordingly. Will lower the basal insulin at this time to Levemir gi norma as 10 units subQ at bedtime daily and hold the Humalog given at mealtimes as ordered. Will obtai n serial chemistries and supplement accordingly as needed. If hyperglycemic levels persist, may need management with Aredia or zoledronic acid and/or calcitonin injections, whichever is available in ou r hospital formulary. Will follow and advise accordingly. Evie Wellington MD cc: [id number] TT: 12/19/2016 15:09:40 Confirmation # [id number] Dictation # [id number] mn
[2016-12-19 17:10] LABS: CORTISOL AM 9.6 ug/dL (4.46-22.7)
[2016-12-19 17:46] LABS: FOLATE > 20.0 ng/mL
[2016-12-19] MEDS ORDERED: Insulin Detemir 100 Units/ml Inj SC SCH (22:00)
[2016-12-19] MEDS: metroNIDAZOLE 500mg/100ml NS 100 ML IVPB SCH (22:16)
--- NOTE | 2016-12-19 22:40 | CP.PCM.PN ---
Subjective - Date & Time of Evaluation Date of Evaluation: 12/19/16 Time of Evaluation: 15:00 - Subjective Subjective: wbc going up, [address] abdomen- diverticulum with inflammation. c\o abdominal pain. ca-12 today, endo on board. [id number]-5.3 Objective - Vital Signs/Intake and Output Vital Signs (last 24 hours): Temp Pulse Resp BP Pulse Ox 97.9 F 79 20 116/54 L 99 12/19/16 16:16 12/19/16 16:16 12/19/16 16:16 12/19/16 16:16 12/19/16 16:16 - Medications Medications: Current Medications Amlodipine Besylate (Norvasc) 5 mg PO DAILY [facility] Last Admin: 12/19/16 09:31 Dose: Not Given Cinacalcet (Sensipar) 30 mg PO DAILY [facility] Last Admin: 12/19/16 09:30 Dose: 30 mg Dextrose (Dextrose 50% Inj) 0 ml IV STAT PRN; Protocol PRN Reason: Hyglycemia Protocol Last Admin: 12/19/16 12:53 Dose: 50 ml Dextrose (Glutose 15) 0 gm PO ONCE PRN; Protocol PRN Reason: Hypoglycemia Protocol Glucagon (Glucagen Diagnostic Kit) 0 mg IM STAT PRN; Protocol PRN Reason: Hypoglycemia Protocol Sodium Chloride (Sodium Chloride 0.9%) 1,000 mls @ 100 mls/hr IV .Q10H [facility] Stop: 12/20/16 10:00 Last Admin: 12/19/16 19:46 Dose: Not Given Dextrose/Sodium Chloride (Dextrose 5%/0.9% Ns 1000 Ml) 1,000 mls @ 100 mls/hr IV .Q10H [facility] Stop: 12/20/16 13:43 Last Admin: 12/19/16 13:49 Dose: 100 mls/hr Ciprofloxacin (Cipro 200mg/100ml D5w) 100 mls @ 100 mls/hr IVPB Q12H [facility] Metronidazole (Flagyl 500mg/100ml Ns) 100 mls @ 100 mls/hr IVPB Q8H [facility] Last Admin: 12/19/16 22:16 Dose: 100 mls/hr Insulin Human Lispro (Humalog) 0 units SC ACHS [facility] PRN Reason: Protocol Last Admin: 12/19/16 21:18 Dose: Not Given Mycophenolate Mofetil (Cellcept Cap) 250 mg PO BID [facility] Last Admin: 12/19/16 16:56 Dose: 250 mg Potassium Phos/Sodium Phos (Neutra-Phos) 1 pkt PO BID [facility] Last Admin: 12/19/16 16:57 Dose: 1 pkt Prednisone (Prednisone Tab) 5 mg PO DAILY [facility] Last Admin: 12/19/16 09:30 Dose: 5 mg Tacrolimus (Prograf Cap) 5 mg PO BID [facility] Last Admin: 12/19/16 16:58 Dose: 5 mg Trimethoprim/Sulfamethoxazole (Bactrim Ss Tab) 1 tab PO MWF [facility] Last Admin: 12/19/16 09:30 Dose: 1 tab - Labs Labs: 12/19/16 06:10 12/19/16 06:10 PT 11.1 SECONDS (9.6-11.2) 12/18/16 00:48 INR 1.07 (0.92-1.08) 12/18/16 00:48 APTT 24.9 SECONDS (23.3-32.5) 12/18/16 00:48 - Additional Findings Additional findings: ppears: No Acute Distress, Cachectic, Chronically Ill - Head Exam Head Exam: ATRAUMATIC, NORMOCEPHALIC - Eye Exam Eye Exam: EOMI, PERRL. absent: Scleral icterus - ENT Exam ENT Exam: Mucous Membranes Dry - Neck Exam Neck exam: Negative for: Lymphadenopathy - Respiratory Exam Respiratory Exam: Clear to Auscultation Bilateral, NORMAL BREATHING PATTERN - Cardiovascular Exam Cardiovascular Exam: REGULAR RHYTHM, +S1, +S2 - GI/Abdominal Exam GI & Abdominal Exam: Normal Bowel Sounds, Soft, Tenderness Additional comments: LLQtenderness - Exam External exam: NORMAL EXTERNAL EXAM - Extremities Exam Extremities exam: Positive for: normal inspection, pedal pulses present - Neurological Exam Neurological exam: Alert, CN II-XII Intact, Oriented x3 - Psychiatric Exam Psychiatric exam: Flat Affect - Skin Skin Exam: Intact Assessment and Plan (1) Diverticulitis Status: Acute (2) Hypercalcemia Status: Acute (3) Unexplained weight loss Status: Acute (4) DM2 (diabetes mellitus, type 2) Status: Chronic (5) Renal transplant, status post Status: Chronic - Assessment and Plan (Free Text) Plan: 1. iv abx 2. spoke to GI sx- needs evaluvation under speical road consultant services 3. monitor hb FOB -positive 4. continue IVF
[2016-12-20] MEDS: Ciprofloxacin 200mg/100ml D5W 100 ML IVPB SCH ×2 (02:35→13:45)
--- NOTE | 2016-12-20 04:54 | CON ---
DATE: 12/18/2016 REFERRING PHYSICIAN: Dr. Castellon. REASON FOR CONSULTATION: Abdominal pain. HISTORY OF PRESENT ILLNESS: This is a 61-year-old female with a history of status post kidney transp lant who comes in with back pain and headache after fall and basically became lethargic with some zohaib ght loss. She comes in for left lower quadrant discomfort. The patient has had this problem before in the past. The pain is actually improving. There are no loose bowel movements and no fevers, no c hills. Currently lying in bed comfortable, in no apparent distress. PAST MEDICAL HISTORY: As above. PAST SURGICAL HISTORY: As above. MEDICATIONS: Have been reviewed. REVIEW OF SYSTEMS: All other systems have been reviewed and negative apart from that in HPI. PHYSICAL EXAMINATION: VITAL SIGNS: Here in the hospital are grossly unremarkable. GENERAL: This is a pleasant, elderly-appearing female lying in bed, comfortable, in no apparent dist ress. HEAD: Normocephalic, atraumatic. EYES: Pupils equally reactive to light bilaterally. No conjunctival pallor or icterus. NECK: Supple, normal range of motion. No lymphadenopathy appreciated. LUNGS: Coarse breath sounds bilaterally. HEART: S1, S2. Regular rate, rhythm. No murmurs appreciated. ABDOMEN: Soft, discomfort is present. No rebound, no guarding. RECTAL: Deferred. EXTREMITIES: Pulses present bilaterally. SKIN: Warm, dry and intact. NEUROLOGIC: Alert and oriented x 3. LABORATORY DATA: Labs and radiology have been reviewed. CAT scan of the chest, abdomen and pelvis d emonstrates giant sigmoid diverticulum, pseudodiverticula with associated inflammation, cystitis. La bs include WBC of , hemoglobin 9.8, hematocrit 31.7, platelet count of 276, 81% neutrophils. Ca lcium was 13.2. Sugars are 354. PTH 77. ASSESSMENT AND PLAN: This is a 61-year-old female with what appears to be diverticulitis and weight loss. From a GI standpoint, antibiotics for now. Will need a colonoscopy at some point once clinically improving in 6-8 weeks. Thank you for the consult. Raghu Medina MD, PhD cc:Nathan Castellon MD [id number] TT: 12/19/2016 21:38:20 Confirmation # [id number] Dictation # [id number] 12/20/2016 03:53:48
[2016-12-20] MEDS: metroNIDAZOLE 500mg/100ml NS 100 ML IVPB SCH ×3 (05:10→22:42)
[2016-12-20] MEDS: Insulin Lispro (humaLOG) 100 Units/ml Inj SC SCH ×4 (06:38→22:35)
--- NOTE | 2016-12-20 07:21 | CP.PCM.CON ---
History of Present Illness - History of Present Illness History of Present Illness: REASONS FOR CONSULT : S/P RENAL TRANSPLANT .. SINCE 2004 .. ON IMMUNOSUPPRESANTS MILD PRE RENAL AZOTEMIA HYPERCALCEMIA WITH SERUM CA 20 CAME IN WITH SEPSIS DUE TO DIVERTICULITIS / COLITIS PT IS WELL KNOWN TO ME SINCE THE PREVIOUS CENTURY .. WAS ON HD FOR 4-5 YEARS ,, THEN RECIEVED [facility] RENAL TRANSPLANT IN 2004 PT HASN,T BEEN DOING WELL CLINICALLY FOR THE LAST 1-2 YEARS .. HAD 2-3 ADMISSIONS IN THE RECENT PAST FOR DIVERTICULITIS / COLITIS .. ALSO HAS BEEN GETTING RECURENT UTI .. HER U/A NOW IS OK .. PT WITH SEVERE LLQ PAIN AND TENDERNESS AND REBOUND TENDERNESS C/W DIVERTICULITIS A 61 yr old femlae with hx of kidney transplant 2004 ON MEDS CAME WITH C\O BACK PAIN, HEADACHE AFTER FALL at home ,also found to extremely lethargic, weight loss about 40 lbs in few months. CT abdomen showed large divertiulum Past Patient History - Infectious Disease Hx of Infectious Diseases: None - Past Medical History & Family History Past Medical History?: Yes - Past Social History Smoking Status: Never Smoked - CARDIAC Hx Hypercholesterolemia: Yes Hx Hypertension: Yes - PULMONARY Hx Respiratory Disorders: No - NEUROLOGICAL Hx Neurological Disorder: No - HEENT Hx HEENT Problems: No - RENAL Hx Chronic Kidney Disease: Yes (kidney transplant) - ENDOCRINE/METABOLIC Hx Endocrine Disorders: Yes - HEMATOLOGICAL/ONCOLOGICAL Hx Blood Disorders: No - INTEGUMENTARY Hx Dermatological Problems: No - MUSCULOSKELETAL/RHEUMATOLOGICAL Hx Falls: Yes - GASTROINTESTINAL Hx Gastrointestinal Disorders: Yes Hx Colitis: Yes - GENITOURINARY/GYNECOLOGICAL Hx Genitourinary Disorders: Yes (UTI) Hx Urinary Tract Infection: Yes - PSYCHIATRIC Hx Substance Use: No - SURGICAL HISTORY Hx Surgeries: Yes Hx Arteriovenous Shunt: Yes Hx Section: Yes Hx Vascular Access Device: Yes Other/Comment: RIGHT KIDNEY TRANSPLANT - ANESTHESIA Hx Anesthesia: Yes Hx Anesthesia Reactions: No Hx Malignant Hyperthermia: No Meds Allergies/Adverse Reactions: Allergies Allergy/AdvReac Type Severity Reaction Status Date / Time cefazolin Allergy ITCHING Verified 03/13/16 12:44 iodine Allergy ITCHING Verified 03/13/16 12:44 vancomycin Allergy ITCHING Verified 03/13/16 12:44 - Medications Medications: Current Medications Amlodipine Besylate (Norvasc) 5 mg PO DAILY [facility] Last Admin: 12/19/16 09:31 Dose: Not Given Cinacalcet (Sensipar) 30 mg PO DAILY [facility] Last Admin: 12/19/16 09:30 Dose: 30 mg Dextrose (Dextrose 50% Inj) 0 ml IV STAT PRN; Protocol PRN Reason: Hyglycemia Protocol Last Admin: 12/19/16 12:53 Dose: 50 ml Dextrose (Glutose 15) 0 gm PO ONCE PRN; Protocol PRN Reason: Hypoglycemia Protocol Glucagon (Glucagen Diagnostic Kit) 0 mg IM STAT PRN; Protocol PRN Reason: Hypoglycemia Protocol Sodium Chloride (Sodium Chloride 0.9%) 1,000 mls @ 100 mls/hr IV .Q10H [facility] Stop: 12/20/16 10:00 Last Admin: 12/19/16 19:46 Dose: Not Given Dextrose/Sodium Chloride (Dextrose 5%/0.9% Ns 1000 Ml) 1,000 mls @ 100 mls/hr IV .Q10H [facility] Stop: 12/20/16 13:43 Last Admin: 12/19/16 23:00 Dose: 100 mls/hr Ciprofloxacin (Cipro 200mg/100ml D5w) 100 mls @ 100 mls/hr IVPB Q12H [facility] Last Admin: 12/20/16 02:35 Dose: 100 mls/hr Metronidazole (Flagyl 500mg/100ml Ns) 100 mls @ 100 mls/hr IVPB Q8H [facility] Last Admin: 12/20/16 05:10 Dose: 100 mls/hr Insulin Human Lispro (Humalog) 0 units SC ACHS [facility] PRN Reason: Protocol Last Admin: 12/20/16 06:38 Dose: Not Given Mycophenolate Mofetil (Cellcept Cap) 250 mg PO BID [facility] Last Admin: 12/19/16 16:56 Dose: 250 mg Potassium Phos/Sodium Phos (Neutra-Phos) 1 pkt PO BID [facility] Last Admin: 12/19/16 16:57 Dose: 1 pkt Prednisone (Prednisone Tab) 5 mg PO DAILY [facility] Last Admin: 12/19/16 09:30 Dose: 5 mg Sitagliptin Phosphate (Januvia) 25 mg PO DAILY [facility] Tacrolimus (Prograf Cap) 5 mg PO BID [facility] Last Admin: 12/19/16 16:58 Dose: 5 mg Trimethoprim/Sulfamethoxazole (Bactrim Ss Tab) 1 tab PO MWF [facility] Last Admin: 12/19/16 09:30 Dose: 1 tab Results - Vital Signs Recent Vital Signs: Last Vital Signs Temp 98 F 12/20/16 00:48 Pulse 83 12/20/16 00:48 Resp 20 12/20/16 00:48 BP 131/65 12/20/16 00:48 Pulse Ox 100 12/20/16 00:48 - Labs Result Diagrams: 12/19/16 06:10 12/19/16 06:10 Labs: Laboratory Results - last 24 hr 12/18/16 12/19/16 12/19/16 13:00 06:10 06:10 WBC RBC Hgb Hct MCV MCH MCHC RDW Plt Count MPV Neut % (Auto) Lymph % (Auto) [place] % (Auto) Eos % (Auto) Baso % (Auto) Neut # Lymph # [place] # Eos # Baso # Neutrophils % (Manual) Band Neutrophils % Lymphocytes % (Manual) Monocytes % (Manual) Toxic Granulation Platelet Estimate Large Platelets Hypochromasia (manual) Anisocytosis (manual) Sodium 139 Potassium 4.2 Chloride 108 H Carbon Dioxide 23 Anion Gap 12 BUN 23 H Creatinine 1.0 Est GFR ( Amer) > 60 Est GFR (Non-Af Amer) 57 POC Glucose (mg/dL) Random Glucose 45 L Calcium 12.1 H Phosphorus 2.4 L Magnesium 1.1 L Iron TIBC % Saturation Ferritin Total Bilirubin 0.1 L AST 12 L D ALT 24 Alkaline Phosphatase 85 Total Protein 5.5 L Albumin 2.5 L Globulin 3.0 Albumin/Globulin Ratio 0.8 L Vitamin B12 25-OH Vitamin D Total Folate Free T4 1.64 Thyroxine (T4) 4.69 L TSH 3rd Generation 0.38 L PTH Intact Whole Molec 77 H Cortisol AM Sample 9.6 12/19/16 12/19/16 12/19/16 06:10 06:10 07:24 WBC 14.6 H RBC 3.18 L Hgb 8.5 L Hct 27.2 L MCV 85.7 MCH 26.8 L MCHC 31.3 L RDW 17.0 H Plt Count 254 MPV 7.3 Neut % (Auto) 90.6 H Lymph % (Auto) 3.7 L [place] % (Auto) 5.6 Eos % (Auto) 0.0 Baso % (Auto) 0.1 Neut # 13.2 H Lymph # 0.5 L [place] # 0.8 Eos # 0.0 Baso # 0.0 Neutrophils % (Manual) 83 H Band Neutrophils % 9 H Lymphocytes % (Manual) 6 L Monocytes % (Manual) 2 Toxic Granulation Present Platelet Estimate Normal Large Platelets Present Hypochromasia (manual) Moderate Anisocytosis (manual) Slight Sodium Potassium Chloride Carbon Dioxide Anion Gap BUN Creatinine Est GFR ( Amer) Est GFR (Non-Af Amer) POC Glucose (mg/dL) 72 Random Glucose Calcium Phosphorus Magnesium Iron TIBC % Saturation Ferritin Total Bilirubin AST ALT Alkaline Phosphatase Total Protein Albumin Globulin Albumin/Globulin Ratio Vitamin B12 25-OH Vitamin D Total 49.7 Folate Free T4 Thyroxine (T4) TSH 3rd Generation PTH Intact Whole Molec Cortisol AM Sample 12/19/16 12/19/16 12/19/16 10:11 10:11 11:35 WBC RBC Hgb Hct MCV MCH MCHC RDW Plt Count MPV Neut % (Auto) Lymph % (Auto) [place] % (Auto) Eos % (Auto) Baso % (Auto) Neut # Lymph # [place] # Eos # Baso # Neutrophils % (Manual) Band Neutrophils % Lymphocytes % (Manual) Monocytes % (Manual) Toxic Granulation Platelet Estimate Large Platelets Hypochromasia (manual) Anisocytosis (manual) Sodium Potassium Chloride Carbon Dioxide Anion Gap BUN Creatinine Est GFR ( Amer) Est GFR (Non-Af Amer) POC Glucose (mg/dL) 62 L Random Glucose Calcium Phosphorus Magnesium Iron 11 L TIBC 132 L % Saturation 9 L Ferritin 1130.0 Total Bilirubin AST ALT Alkaline Phosphatase Total Protein Albumin Globulin Albumin/Globulin Ratio Vitamin B12 696 25-OH Vitamin D Total Folate > 20.0 Free T4 Thyroxine (T4) TSH 3rd Generation PTH Intact Whole Molec Cortisol AM Sample 12/19/16 12/19/16 12/19/16 12:47 13:19 15:33 WBC RBC Hgb Hct MCV MCH MCHC RDW Plt Count MPV Neut % (Auto) Lymph % (Auto) [place] % (Auto) Eos % (Auto) Baso % (Auto) Neut # Lymph # [place] # Eos # Baso # Neutrophils % (Manual) Band Neutrophils % Lymphocytes % (Manual) Monocytes % (Manual) Toxic Granulation Platelet Estimate Large Platelets Hypochromasia (manual) Anisocytosis (manual) Sodium Potassium Chloride Carbon Dioxide Anion Gap BUN Creatinine Est GFR ( Amer) Est GFR (Non-Af Amer) POC Glucose (mg/dL) 48 L 277 H 128 H Random Glucose Calcium Phosphorus Magnesium Iron TIBC % Saturation Ferritin Total Bilirubin AST ALT Alkaline Phosphatase Total Protein Albumin Globulin Albumin/Globulin Ratio Vitamin B12 25-OH Vitamin D Total Folate Free T4 Thyroxine (T4) TSH 3rd Generation PTH Intact Whole Molec Cortisol AM Sample 12/19/16 12/20/16 21:09 05:33 WBC RBC Hgb Hct MCV MCH MCHC RDW Plt Count MPV Neut % (Auto) Lymph % (Auto) [place] % (Auto) Eos % (Auto) Baso % (Auto) Neut # Lymph # [place] # Eos # Baso # Neutrophils % (Manual) Band Neutrophils % Lymphocytes % (Manual) Monocytes % (Manual) Toxic Granulation Platelet Estimate Large Platelets Hypochromasia (manual) Anisocytosis (manual) Sodium Potassium Chloride Carbon Dioxide Anion Gap BUN Creatinine Est GFR ( Amer) Est GFR (Non-Af Amer) POC Glucose (mg/dL) 132 H 149 H Random Glucose Calcium Phosphorus Magnesium Iron TIBC % Saturation Ferritin Total Bilirubin AST ALT Alkaline Phosphatase Total Protein Albumin Globulin Albumin/Globulin Ratio Vitamin B12 25-OH Vitamin D Total Folate Free T4 Thyroxine (T4) TSH 3rd Generation PTH Intact Whole Molec Cortisol AM Sample Assessment & Plan - Assessment and Plan (Free Text) Assessment: ESRD ON RENAL TRX .. C/O IMMUNOSUPPRESANT MEDS ANEMIA .. IRON STUDDIES LOW .. NEEDS IV IRON SEVERE DIVERTICULITIS .. SURGERY AND GI ON CASE .. ON IV CIPRO +FLAGYL MULTIPLE CO MORBIDITIES C/O D5 1/2 NS AT 100 CC/H F/U CLOSELY WILL D/W GI AND SURGERY .. MAY BE COLECTOMY ?? ORDES WRITTEN - Date & Time Date: 12/19/16 Time: 13:00
[2016-12-20 08:04] LABS: ALB/GLOB RATIO 0.8 (1.0-2.1); ALKALINE PHOSPHATASE 90 U/L (38-126); ALT/SGPT 21 U/L (9-52); AST/SGOT 14 U/L (14-36); BILIRUBIN,TOTAL 0.3 mg/dl (0.2-1.3); BLOOD UREA NITROGEN 20 mg/dl (7-17); CALCIUM 11.1 mg/dL (8.4-10.2); CARBON DIOXIDE 20 mmol/L (22-30); CHLORIDE 106 mmol/L (98-107); GFR AFRICAN-AMERICAN > 60; GLUCOSE,RANDOM 118 mg/dL (65-105); PHOSPHOROUS 3.2 mg/dl (2.5-4.5); POTASSIUM 4.7 MMOL/L (3.6-5.0); SODIUM 132 mmol/l (132-148); TOTAL PROTEIN 5.2 G/DL (6.3-8.2)
--- NOTE | 2016-12-20 08:47 | CP.PCM.PN ---
<JaironCece - Last Filed: 12/20/16 08:44> Subjective - Date & Time of Evaluation Date of Evaluation: 12/20/16 Time of Evaluation: 08:44 - Subjective Subjective: General Surgery - Dr. Wilson Pt S&E. CARLOS. Pt complains of mild LLQ abdominal pain, constant and unchanged from previous days. She is on a regular diet and had liquids yesterday which she states she tolerated fine. No N/V, F/C, SOb/Cp. No further BMs, though pt states she is passing flatus. Objective - Vital Signs/Intake and Output Vital Signs (last 24 hours): Temp Pulse Resp BP Pulse Ox 97.6 F 89 20 132/72 97 12/20/16 08:31 12/20/16 08:31 12/20/16 08:31 12/20/16 08:31 12/20/16 08:31 - Medications Medications: Current Medications Amlodipine Besylate (Norvasc) 5 mg PO DAILY [facility] Last Admin: 12/19/16 09:31 Dose: Not Given Cinacalcet (Sensipar) 30 mg PO DAILY [facility] Last Admin: 12/19/16 09:30 Dose: 30 mg Dextrose (Dextrose 50% Inj) 0 ml IV STAT PRN; Protocol PRN Reason: Hyglycemia Protocol Last Admin: 12/19/16 12:53 Dose: 50 ml Dextrose (Glutose 15) 0 gm PO ONCE PRN; Protocol PRN Reason: Hypoglycemia Protocol Glucagon (Glucagen Diagnostic Kit) 0 mg IM STAT PRN; Protocol PRN Reason: Hypoglycemia Protocol Sodium Chloride (Sodium Chloride 0.9%) 1,000 mls @ 100 mls/hr IV .Q10H [facility] Stop: 12/20/16 10:00 Last Admin: 12/19/16 19:46 Dose: Not Given Dextrose/Sodium Chloride (Dextrose 5%/0.9% Ns 1000 Ml) 1,000 mls @ 100 mls/hr IV .Q10H [facility] Stop: 12/20/16 13:43 Last Admin: 12/19/16 23:00 Dose: 100 mls/hr Ciprofloxacin (Cipro 200mg/100ml D5w) 100 mls @ 100 mls/hr IVPB Q12H [facility] Last Admin: 12/20/16 02:35 Dose: 100 mls/hr Metronidazole (Flagyl 500mg/100ml Ns) 100 mls @ 100 mls/hr IVPB Q8H [facility] Last Admin: 12/20/16 05:10 Dose: 100 mls/hr Iron Sucrose 100 mg/ Sodium (Chloride) 105 mls @ 105 mls/hr IVPB DAILY [facility] Stop: 12/26/16 23:59 Insulin Human Lispro (Humalog) 0 units SC ACHS [facility] PRN Reason: Protocol Last Admin: 12/20/16 06:38 Dose: Not Given Mycophenolate Mofetil (Cellcept Cap) 250 mg PO BID [facility] Last Admin: 12/19/16 16:56 Dose: 250 mg Potassium Phos/Sodium Phos (Neutra-Phos) 1 pkt PO BID [facility] Last Admin: 12/19/16 16:57 Dose: 1 pkt Prednisone (Prednisone Tab) 5 mg PO DAILY [facility] Last Admin: 12/19/16 09:30 Dose: 5 mg Sitagliptin Phosphate (Januvia) 25 mg PO DAILY [facility] Tacrolimus (Prograf Cap) 5 mg PO BID [facility] Last Admin: 12/19/16 16:58 Dose: 5 mg Trimethoprim/Sulfamethoxazole (Bactrim Ss Tab) 1 tab PO MWF [facility] Last Admin: 12/19/16 09:30 Dose: 1 tab - Labs Labs: 12/19/16 06:10 12/20/16 07:25 PT 11.1 SECONDS (9.6-11.2) 12/18/16 00:48 INR 1.07 (0.92-1.08) 12/18/16 00:48 APTT 24.9 SECONDS (23.3-32.5) 12/18/16 00:48 - Constitutional Appears: No Acute Distress, Cachectic - Head Exam Head Exam: ATRAUMATIC, NORMAL INSPECTION, NORMOCEPHALIC - Respiratory Exam Respiratory Exam: NORMAL BREATHING PATTERN. absent: Respiratory Distress - GI/Abdominal Exam GI & Abdominal Exam: Distended (LLQ distended bowel), Soft, Tenderness (mild ttp , LLQ). absent: Firm, Guarding, Rigid, Rebound - Neurological Exam Neurological Exam: Alert, Oriented x3 - Psychiatric Exam Psychiatric exam: Normal Affect, Normal Mood - Skin Skin Exam: Dry, Intact Assessment and Plan - Assessment and Plan (Free Text) Assessment: 61F w/ hx of R kidney transplant admitted due to a fall, w/ recent weight loss, abdominal pain and GI bleed -Stool occult + -F/U CBC -F/U GI recc. -No Surgical intervention at this time Will DW Dr. Steve De La O PGY2 <Reno Wilson - Last Filed: 12/20/16 10:11> Subjective - Date & Time of Evaluation Time of Evaluation: 09:45 - Subjective Subjective: Patient was seen and examined at the bedside. Agree with resident's note above. Objective - Vital Signs/Intake and Output Vital Signs (last 24 hours): Temp Pulse Resp BP Pulse Ox 97.6 F 89 20 132/72 97 12/20/16 08:31 12/20/16 08:31 12/20/16 08:31 12/20/16 08:31 12/20/16 08:31 - Medications Medications: Current Medications Amlodipine Besylate (Norvasc) 5 mg PO DAILY [facility] Last Admin: 12/20/16 09:02 Dose: 5 mg Cinacalcet (Sensipar) 30 mg PO DAILY [facility] Last Admin: 12/20/16 09:03 Dose: 30 mg Dextrose (Dextrose 50% Inj) 0 ml IV STAT PRN; Protocol PRN Reason: Hyglycemia Protocol Last Admin: 12/19/16 12:53 Dose: 50 ml Dextrose (Glutose 15) 0 gm PO ONCE PRN; Protocol PRN Reason: Hypoglycemia Protocol Glucagon (Glucagen Diagnostic Kit) 0 mg IM STAT PRN; Protocol PRN Reason: Hypoglycemia Protocol Sodium Chloride (Sodium Chloride 0.9%) 1,000 mls @ 100 mls/hr IV .Q10H [facility] Stop: 12/20/16 10:00 Last Admin: 12/20/16 09:03 Dose: Not Given Dextrose/Sodium Chloride (Dextrose 5%/0.9% Ns 1000 Ml) 1,000 mls @ 100 mls/hr IV .Q10H [facility] Stop: 12/20/16 13:43 Last Admin: 12/20/16 09:03 Dose: 100 mls/hr Ciprofloxacin (Cipro 200mg/100ml D5w) 100 mls @ 100 mls/hr IVPB Q12H [facility] Last Admin: 12/20/16 02:35 Dose: 100 mls/hr Metronidazole (Flagyl 500mg/100ml Ns) 100 mls @ 100 mls/hr IVPB Q8H [facility] Last Admin: 12/20/16 05:10 Dose: 100 mls/hr Iron Sucrose 100 mg/ Sodium (Chloride) 105 mls @ 105 mls/hr IVPB DAILY [facility] Stop: 12/26/16 23:59 Last Admin: 12/20/16 09:40 Dose: 105 mls/hr Insulin Human Lispro (Humalog) 0 units SC ACHS [facility] PRN Reason: Protocol Last Admin: 12/20/16 06:38 Dose: Not Given Mycophenolate Mofetil (Cellcept Cap) 250 mg PO BID [facility] Last Admin: 12/20/16 09:02 Dose: 250 mg Potassium Phos/Sodium Phos (Neutra-Phos) 1 pkt PO BID [facility] Last Admin: 12/20/16 09:02 Dose: 1 pkt Prednisone (Prednisone Tab) 5 mg PO DAILY [facility] Last Admin: 12/20/16 09:02 Dose: 5 mg Sitagliptin Phosphate (Januvia) 25 mg PO DAILY [facility] Last Admin: 12/20/16 09:02 Dose: 25 mg Tacrolimus (Prograf Cap) 5 mg PO BID [facility] Last Admin: 12/20/16 09:01 Dose: 5 mg Trimethoprim/Sulfamethoxazole (Bactrim Ss Tab) 1 tab PO MWF [facility] Last Admin: 12/19/16 09:30 Dose: 1 tab - Labs Labs: 12/20/16 08:46 12/20/16 07:25 PT 11.1 SECONDS (9.6-11.2) 12/18/16 00:48 INR 1.07 (0.92-1.08) 12/18/16 00:48 APTT 24.9 SECONDS (23.3-32.5) 12/18/16 00:48 Assessment and Plan - Assessment and Plan (Free Text) Plan: - Transfuse 2 units of PRBC - Continue antibiotics - Pain control - GI follow up - Monitor Hb/Hct - Will follow
[2016-12-20 08:52] LABS: BASO % 0.1 % (0.0-2.0); EOS % 0.1 % (0.0-4.0); HEMATOCRIT 25.8 % (34.0-47.0); LYMPH # 1.3 K/uL (1.0-4.3); LYMPH % 9.9 % (20.0-40.0); MEAN CELL VOLUME 86.4 fl (81.0-99.0); MEAN CORPUSCULAR HEMOGLOBIN 26.3 pg (27.0-31.0); MEAN CORPUSCULAR HGB CONC 30.5 g/dL (33.0-37.0); MEAN PLATELET VOLUME 7.5 fl (7.2-11.7); MONO # 1.2 K/uL (0.0-0.8); MONO % 8.8 % (0.0-10.0); NEUT # 10.7 K/uL (1.8-7.0); NEUT % 81.1 % (50.0-75.0); NRBC % 0.1 % (0.0-0.0); RED CELL DISTRIBUTION WIDTH 17.1 % (11.5-14.5); WHITE BLOOD COUNT 13.2 K/uL (4.8-10.8)
[2016-12-20] MEDS: Potassium & Sodium Phosphate PO SCH ×2 (09:02→16:53)
[2016-12-20] MEDS: Sodium Chloride 0.9% 1,000 ML IV SCH (09:03)
[2016-12-20] MEDS: Dextrose 5%/0.9% NS 1,000 ML IV SCH (09:03)
--- NOTE | 2016-12-20 12:11 | CP.PCM.CON ---
History of Present Illness - History of Present Illness History of Present Illness: 61 year old female with a history of HTN, DM, kidney transplant, progressive debility and abdominal pain, admitted s/p fall, found to be anemic. The patient reports to progressive fatigue and weightloss of about 80 pounds over the last year. She has been experiencing increasing abdominal pain for several months with diminished appetite. She notes when she does have a bowel movement she sees blood in the toilet bowl. A ct scan showed a large sigmoid diverticula with inflammation and adjacent cystic inflammation. Her hgb today has nadired at 7.8. Past medical history: HTN, DM Past surgical history: Kidney transplant, Family history: Denies tobacco, alcohol, and illicit drug use. Social history: Denies tobacco, alcohol, and illicit drug use. Allergies: Vancomycin, cefazolin, iodine Review of systems: All remaining review of systems including HEENT, cardiovascular, respiratory, gastrointestinal, gentitourinary, musculoskeletal, dermatologic, neurologic, and psychiatric are negative unless mentioned in the HPI. Past Patient History - Infectious Disease Hx of Infectious Diseases: None - Past Medical History & Family History Past Medical History?: Yes - Past Social History Smoking Status: Never Smoked - CARDIAC Hx Hypercholesterolemia: Yes Hx Hypertension: Yes - PULMONARY Hx Respiratory Disorders: No - NEUROLOGICAL Hx Neurological Disorder: No - HEENT Hx HEENT Problems: No - RENAL Hx Chronic Kidney Disease: Yes (kidney transplant) - ENDOCRINE/METABOLIC Hx Endocrine Disorders: Yes - HEMATOLOGICAL/ONCOLOGICAL Hx Blood Disorders: No - INTEGUMENTARY Hx Dermatological Problems: No - MUSCULOSKELETAL/RHEUMATOLOGICAL Hx Falls: Yes - GASTROINTESTINAL Hx Gastrointestinal Disorders: Yes Hx Colitis: Yes - GENITOURINARY/GYNECOLOGICAL Hx Genitourinary Disorders: Yes (UTI) Hx Urinary Tract Infection: Yes - PSYCHIATRIC Hx Substance Use: No - SURGICAL HISTORY Hx Surgeries: Yes Hx Arteriovenous Shunt: Yes Hx Section: Yes Hx Vascular Access Device: Yes Other/Comment: RIGHT KIDNEY TRANSPLANT - ANESTHESIA Hx Anesthesia: Yes Hx Anesthesia Reactions: No Hx Malignant Hyperthermia: No Meds Allergies/Adverse Reactions: Allergies Allergy/AdvReac Type Severity Reaction Status Date / Time cefazolin Allergy ITCHING Verified 03/13/16 12:44 iodine Allergy ITCHING Verified 03/13/16 12:44 vancomycin Allergy ITCHING Verified 03/13/16 12:44 - Medications Medications: Current Medications Amlodipine Besylate (Norvasc) 5 mg PO DAILY [facility] Last Admin: 12/20/16 09:02 Dose: 5 mg Cinacalcet (Sensipar) 30 mg PO DAILY [facility] Last Admin: 12/20/16 09:03 Dose: 30 mg Dextrose (Dextrose 50% Inj) 0 ml IV STAT PRN; Protocol PRN Reason: Hyglycemia Protocol Last Admin: 12/19/16 12:53 Dose: 50 ml Dextrose (Glutose 15) 0 gm PO ONCE PRN; Protocol PRN Reason: Hypoglycemia Protocol Glucagon (Glucagen Diagnostic Kit) 0 mg IM STAT PRN; Protocol PRN Reason: Hypoglycemia Protocol Dextrose/Sodium Chloride (Dextrose 5%/0.9% Ns 1000 Ml) 1,000 mls @ 100 mls/hr IV .Q10H [facility] Stop: 12/20/16 13:43 Last Admin: 12/20/16 09:03 Dose: 100 mls/hr Ciprofloxacin (Cipro 200mg/100ml D5w) 100 mls @ 100 mls/hr IVPB Q12H [facility] Last Admin: 12/20/16 02:35 Dose: 100 mls/hr Metronidazole (Flagyl 500mg/100ml Ns) 100 mls @ 100 mls/hr IVPB Q8H [facility] Last Admin: 12/20/16 05:10 Dose: 100 mls/hr Iron Sucrose 100 mg/ Sodium (Chloride) 105 mls @ 105 mls/hr IVPB DAILY [facility] Stop: 12/26/16 23:59 Last Admin: 12/20/16 09:40 Dose: 105 mls/hr Insulin Human Lispro (Humalog) 0 units SC ACHS [facility] PRN Reason: Protocol Last Admin: 12/20/16 06:38 Dose: Not Given Mycophenolate Mofetil (Cellcept Cap) 250 mg PO BID [facility] Last Admin: 12/20/16 09:02 Dose: 250 mg Potassium Phos/Sodium Phos (Neutra-Phos) 1 pkt PO BID [facility] Last Admin: 12/20/16 09:02 Dose: 1 pkt Prednisone (Prednisone Tab) 5 mg PO DAILY [facility] Last Admin: 12/20/16 09:02 Dose: 5 mg Sitagliptin Phosphate (Januvia) 25 mg PO DAILY [facility] Last Admin: 12/20/16 09:02 Dose: 25 mg Tacrolimus (Prograf Cap) 5 mg PO BID [facility] Last Admin: 12/20/16 09:01 Dose: 5 mg Trimethoprim/Sulfamethoxazole (Bactrim Ss Tab) 1 tab PO MWF [facility] Last Admin: 12/19/16 09:30 Dose: 1 tab Physical Exam - Constitutional Appears: Cachectic - Head Exam Head Exam: ATRAUMATIC - Eye Exam Eye Exam: Normal appearance - ENT Exam ENT Exam: Mucous Membranes Dry - Respiratory Exam Respiratory Exam: NORMAL BREATHING PATTERN - Cardiovascular Exam Cardiovascular Exam: +S1, +S2 - GI/Abdominal Exam GI & Abdominal Exam: Normal Bowel Sounds - Extremities Exam Extremities exam: Positive for: normal inspection - Neurological Exam Neurological exam: Oriented x3 - Psychiatric Exam Psychiatric exam: Normal Affect, Normal Mood - Skin Skin Exam: Warm Results - Vital Signs Recent Vital Signs: Last Vital Signs Temp 97.6 F 12/20/16 08:31 Pulse 89 12/20/16 08:31 Resp 20 12/20/16 08:31 BP 132/72 12/20/16 08:31 Pulse Ox 97 12/20/16 08:31 - Labs Result Diagrams: 12/21/16 06:35 12/21/16 06:35 Labs: Laboratory Results - last 24 hr 12/18/16 12/19/16 12/19/16 13:00 06:10 10:11 WBC RBC Hgb Hct MCV MCH MCHC RDW Plt Count MPV Neut % (Auto) Lymph % (Auto) Roosevelt % (Auto) Eos % (Auto) Baso % (Auto) Neut # Lymph # Roosevelt # Eos # Baso # Retic Count Sodium Potassium Chloride Carbon Dioxide Anion Gap BUN Creatinine Est GFR ( Amer) Est GFR (Non-Af Amer) POC Glucose (mg/dL) Random Glucose Calcium Phosphorus Magnesium Ferritin 1130.0 Total Bilirubin AST ALT Alkaline Phosphatase Total Protein Albumin Globulin Albumin/Globulin Ratio Folate > 20.0 PTH Intact Whole Molec 77 H Cortisol AM Sample 9.6 Crossmatch BBK History Checked 12/19/16 12/19/16 12/19/16 12:47 13:19 15:33 WBC RBC Hgb Hct MCV MCH MCHC RDW Plt Count MPV Neut % (Auto) Lymph % (Auto) Roosevelt % (Auto) Eos % (Auto) Baso % (Auto) Neut # Lymph # Roosevelt # Eos # Baso # Retic Count Sodium Potassium Chloride Carbon Dioxide Anion Gap BUN Creatinine Est GFR ( Amer) Est GFR (Non-Af Amer) POC Glucose (mg/dL) 48 L 277 H 128 H Random Glucose Calcium Phosphorus Magnesium Ferritin Total Bilirubin AST ALT Alkaline Phosphatase Total Protein Albumin Globulin Albumin/Globulin Ratio Folate PTH Intact Whole Molec Cortisol AM Sample Crossmatch BBK History Checked 12/19/16 12/20/16 12/20/16 21:09 05:33 07:25 WBC RBC Hgb Hct MCV MCH MCHC RDW Plt Count MPV Neut % (Auto) Lymph % (Auto) Roosevelt % (Auto) Eos % (Auto) Baso % (Auto) Neut # Lymph # Roosevelt # Eos # Baso # Retic Count 2.1 H Sodium Potassium Chloride Carbon Dioxide Anion Gap BUN Creatinine Est GFR ( Amer) Est GFR (Non-Af Amer) POC Glucose (mg/dL) 132 H 149 H Random Glucose Calcium Phosphorus Magnesium Ferritin Total Bilirubin AST ALT Alkaline Phosphatase Total Protein Albumin Globulin Albumin/Globulin Ratio Folate PTH Intact Whole Molec Cortisol AM Sample Crossmatch BBK History Checked 12/20/16 12/20/16 12/20/16 07:25 08:46 10:10 WBC 13.2 H RBC 2.98 L Hgb 7.8 L Hct 25.8 L MCV 86.4 MCH 26.3 L MCHC 30.5 L RDW 17.1 H Plt Count 210 MPV 7.5 Neut % (Auto) 81.1 H Lymph % (Auto) 9.9 L Roosevelt % (Auto) 8.8 Eos % (Auto) 0.1 Baso % (Auto) 0.1 Neut # 10.7 H Lymph # 1.3 Roosevelt # 1.2 H Eos # 0.0 Baso # 0.0 Retic Count Sodium 132 Potassium 4.7 Chloride 106 Carbon Dioxide 20 L Anion Gap 11 BUN 20 H Creatinine 0.8 Est GFR ( Amer) > 60 Est GFR (Non-Af Amer) > 60 POC Glucose (mg/dL) Random Glucose 118 H Calcium 11.1 H Phosphorus 3.2 Magnesium 1.5 L Ferritin Total Bilirubin 0.3 AST 14 ALT 21 Alkaline Phosphatase 90 Total Protein 5.2 L Albumin 2.3 L Globulin 2.8 Albumin/Globulin Ratio 0.8 L Folate PTH Intact Whole Molec Cortisol AM Sample Crossmatch BBK History Checked 12/20/16 11:25 WBC RBC Hgb Hct MCV MCH MCHC RDW Plt Count MPV Neut % (Auto) Lymph % (Auto) Roosevelt % (Auto) Eos % (Auto) Baso % (Auto) Neut # Lymph # Roosevelt # Eos # Baso # Retic Count Sodium Potassium Chloride Carbon Dioxide Anion Gap BUN Creatinine Est GFR ( Amer) Est GFR (Non-Af Amer) POC Glucose (mg/dL) Random Glucose Calcium Phosphorus Magnesium Ferritin Total Bilirubin AST ALT Alkaline Phosphatase Total Protein Albumin Globulin Albumin/Globulin Ratio Folate PTH Intact Whole Molec Cortisol AM Sample Crossmatch See Detail BBK History Checked Patient has bt Assessment & Plan (1) Anemia Assessment and Plan: work up consistent with a hypoproliferative erythroid response elevated ferritin; anemia of chronic disease FOBT positive normal iron, b12, folate stores agree with transfusion support Status: Acute (2) Hypercalcemia Assessment and Plan: improving will check SPEP, serum immunofixation, free light chain assay to rule out monoclonal protein Status: Acute (3) Leukocytosis Assessment and Plan: improving with antibiotics Thank you for this interesting consult. Status: Acute
--- NOTE | 2016-12-20 13:51 | US ---
HISTORY: Nodular Goiter/Hypercalcemia TECHNIQUE: Sonographic evaluation of the thyroid gland. COMPARISON: None. FINDINGS: RIGHT LOBE: Measures 2.3 x 2.4 x 5.1 cm. Heterogenous echotexture, normal vascularity Nodules: 1. Solid nodule lower pole 2.3 x 2.9 x 2.7 cm. The nodule is hypervascular. 2. Midpole solid well-circumscribed nodule 5 x 8 x 7 mm. LEFT LOBE: Measures 2 x 2 x 5.1 cm. Heterogenous echotexture, normal vascularity Nodules: 1. Partially calcified midpole nodule posteriorly 9 x 11 x 10 mm. This nodule is avascular ISTHMUS: Measures 0.45 cm. Nodules: None OTHER FINDINGS: None . IMPRESSION: Enlarged, heterogeneous gland. Dominant nodule in the lower pole of the right lobe requires further evaluation based on size, appearance in the absence of prior studies. Recommendations for follow-up: 1. Radionuclide Scan to assess Thyroid function and to evaluate the thyroid for the presence of hot or cold nodules. 2. Fine needle aspiration (FNA) should also be considered as an invasive diagnostic tool in the assessment of findings described above.
[2016-12-20] MEDS ORDERED: Magnesium Sulfate 4 gm/100 ml 4 GM/100 ML BAG IVPB ONE (19:22)
--- NOTE | 2016-12-20 19:29 | CP.PCM.PN ---
Subjective - Date & Time of Evaluation Date of Evaluation: 12/20/16 Time of Evaluation: 15:00 - Subjective Subjective: SEEN ON RENAL F/U RENAL FUNCTION STABLE CA DOWN TO 11.1 ON IVAB FOR DIVERTICULITIS HYPOMAGNESEMIA NOTED .. I ADDED MAG Objective - Vital Signs/Intake and Output Vital Signs (last 24 hours): Temp Pulse Resp BP Pulse Ox 98.5 F 79 18 131/71 100 12/20/16 16:46 12/20/16 16:46 12/20/16 16:46 12/20/16 16:46 12/20/16 16:46 - Medications Medications: Current Medications Amlodipine Besylate (Norvasc) 5 mg PO DAILY [facility] Last Admin: 12/20/16 09:02 Dose: 5 mg Cinacalcet (Sensipar) 30 mg PO DAILY [facility] Last Admin: 12/20/16 09:03 Dose: 30 mg Dextrose (Dextrose 50% Inj) 0 ml IV STAT PRN; Protocol PRN Reason: Hyglycemia Protocol Last Admin: 12/19/16 12:53 Dose: 50 ml Dextrose (Glutose 15) 0 gm PO ONCE PRN; Protocol PRN Reason: Hypoglycemia Protocol Famotidine (Pepcid) 20 mg PO DAILY [facility] Glucagon (Glucagen Diagnostic Kit) 0 mg IM STAT PRN; Protocol PRN Reason: Hypoglycemia Protocol Ciprofloxacin (Cipro 200mg/100ml D5w) 100 mls @ 100 mls/hr IVPB Q12H [facility] Last Admin: 12/20/16 13:45 Dose: 100 mls/hr Metronidazole (Flagyl 500mg/100ml Ns) 100 mls @ 100 mls/hr IVPB Q8H [facility] Last Admin: 12/20/16 13:45 Dose: 100 mls/hr Iron Sucrose 100 mg/ Sodium (Chloride) 105 mls @ 105 mls/hr IVPB DAILY [facility] Stop: 12/26/16 23:59 Last Admin: 12/20/16 09:40 Dose: 105 mls/hr Magnesium Sulfate (Magnesium Sulfate 4 Gm/100 Ml H2o) 4 gm in 100 mls @ 50 mls/ hr IVPB ONCE ONE PRN Reason: 2 GM/HR Stop: 12/20/16 21:21 Insulin Human Lispro (Humalog) 0 units SC ACHS [facility] PRN Reason: Protocol Last Admin: 12/20/16 16:12 Dose: Not Given Magnesium Chloride (Mag Delay 64mg) 1 tab PO DAILY [facility] Mycophenolate Mofetil (Cellcept Cap) 250 mg PO BID [facility] Last Admin: 12/20/16 16:11 Dose: 250 mg Potassium Phos/Sodium Phos (Neutra-Phos) 1 pkt PO BID [facility] Last Admin: 12/20/16 16:53 Dose: 1 pkt Prednisone (Prednisone Tab) 5 mg PO DAILY [facility] Last Admin: 12/20/16 09:02 Dose: 5 mg Repaglinide (Prandin) 0.5 mg PO TIDAC [facility] Last Admin: 12/20/16 16:53 Dose: 0.5 mg Sitagliptin Phosphate (Januvia) 25 mg PO DAILY [facility] Last Admin: 12/20/16 09:02 Dose: 25 mg Tacrolimus (Prograf Cap) 5 mg PO BID [facility] Last Admin: 12/20/16 16:11 Dose: 5 mg Trimethoprim/Sulfamethoxazole (Bactrim Ss Tab) 1 tab PO MWF [facility] Last Admin: 12/19/16 09:30 Dose: 1 tab - Labs Labs: 12/20/16 08:46 12/20/16 07:25 PT 11.1 SECONDS (9.6-11.2) 12/18/16 00:48 INR 1.07 (0.92-1.08) 12/18/16 00:48 APTT 24.9 SECONDS (23.3-32.5) 12/18/16 00:48 Assessment and Plan - Assessment and Plan (Free Text) Assessment: RENAL TRX STATUS .. RENAL FUNCTION STABLE HYPERCALCEMIA .. BETTER ON IVF LLQ PAIN / DIVERTICULITIS .. ON CIPRO AND FLAGYL HYPOMAGNESEMIA .. START MAG SUPPLEMENT C/O CURRENT CARE WILL D/W SURGERY IF PT NEEDS L COLECTOMY DOWN THE LINE SHE WAS ADDMITED TWICE LATELY FOR ACUTE DIVERTICULITIS WITH SEVERE PRESENTATION ??
--- NOTE | 2016-12-20 20:20 | CP.PCM.PN ---
Subjective - Date & Time of Evaluation Date of Evaluation: 12/20/16 Time of Evaluation: 09:00 - Subjective Subjective: hb-7.8, stool occult blood positive. c\o chronic abdominal pain. ca-11.1 on IVF. as per GI -no intervention for now wbc-13 tolerating diet. she did not f\u any transplant doctor for long time Objective - Vital Signs/Intake and Output Vital Signs (last 24 hours): Temp Pulse Resp BP Pulse Ox 98.8 F 74 18 134/72 100 12/20/16 19:25 12/20/16 19:25 12/20/16 19:25 12/20/16 19:25 12/20/16 16:46 - Medications Medications: Current Medications Amlodipine Besylate (Norvasc) 5 mg PO DAILY [facility] Last Admin: 12/20/16 09:02 Dose: 5 mg Cinacalcet (Sensipar) 30 mg PO DAILY [facility] Last Admin: 12/20/16 09:03 Dose: 30 mg Dextrose (Dextrose 50% Inj) 0 ml IV STAT PRN; Protocol PRN Reason: Hyglycemia Protocol Last Admin: 12/19/16 12:53 Dose: 50 ml Dextrose (Glutose 15) 0 gm PO ONCE PRN; Protocol PRN Reason: Hypoglycemia Protocol Famotidine (Pepcid) 20 mg PO DAILY [facility] Glucagon (Glucagen Diagnostic Kit) 0 mg IM STAT PRN; Protocol PRN Reason: Hypoglycemia Protocol Ciprofloxacin (Cipro 200mg/100ml D5w) 100 mls @ 100 mls/hr IVPB Q12H [facility] Last Admin: 12/20/16 13:45 Dose: 100 mls/hr Metronidazole (Flagyl 500mg/100ml Ns) 100 mls @ 100 mls/hr IVPB Q8H [facility] Last Admin: 12/20/16 13:45 Dose: 100 mls/hr Iron Sucrose 100 mg/ Sodium (Chloride) 105 mls @ 105 mls/hr IVPB DAILY [facility] Stop: 12/26/16 23:59 Last Admin: 12/20/16 09:40 Dose: 105 mls/hr Magnesium Sulfate (Magnesium Sulfate 4 Gm/100 Ml H2o) 4 gm in 100 mls @ 50 mls/ hr IVPB ONCE ONE PRN Reason: 2 GM/HR Stop: 12/20/16 21:21 Insulin Human Lispro (Humalog) 0 units SC ACHS [facility] PRN Reason: Protocol Last Admin: 12/20/16 16:12 Dose: Not Given Magnesium Chloride (Mag Delay 64mg) 1 tab PO DAILY [facility] Mycophenolate Mofetil (Cellcept Cap) 250 mg PO BID [facility] Last Admin: 12/20/16 16:11 Dose: 250 mg Potassium Phos/Sodium Phos (Neutra-Phos) 1 pkt PO BID [facility] Last Admin: 12/20/16 16:53 Dose: 1 pkt Prednisone (Prednisone Tab) 5 mg PO DAILY [facility] Last Admin: 12/20/16 09:02 Dose: 5 mg Repaglinide (Prandin) 0.5 mg PO TIDAC [facility] Last Admin: 12/20/16 16:53 Dose: 0.5 mg Sitagliptin Phosphate (Januvia) 25 mg PO DAILY [facility] Last Admin: 12/20/16 09:02 Dose: 25 mg Tacrolimus (Prograf Cap) 5 mg PO BID [facility] Last Admin: 12/20/16 16:11 Dose: 5 mg Trimethoprim/Sulfamethoxazole (Bactrim Ss Tab) 1 tab PO MWF [facility] Last Admin: 12/19/16 09:30 Dose: 1 tab - Labs Labs: 12/20/16 08:46 12/20/16 07:25 PT 11.1 SECONDS (9.6-11.2) 12/18/16 00:48 INR 1.07 (0.92-1.08) 12/18/16 00:48 APTT 24.9 SECONDS (23.3-32.5) 12/18/16 00:48 - Additional Findings Additional findings: ppears: No Acute Distress, Cachectic, Chronically Ill - Head Exam Head Exam: ATRAUMATIC, NORMOCEPHALIC - Eye Exam Eye Exam: EOMI, PERRL. absent: Scleral icterus - ENT Exam ENT Exam: Mucous Membranes Dry - Neck Exam Neck exam: Negative for: Lymphadenopathy - Respiratory Exam Respiratory Exam: Clear to Auscultation Bilateral, NORMAL BREATHING PATTERN - Cardiovascular Exam Cardiovascular Exam: REGULAR RHYTHM, +S1, +S2 - GI/Abdominal Exam GI & Abdominal Exam: Normal Bowel Sounds, Soft, Tenderness Additional comments: abdominal area LLQ - Exam External exam: NORMAL EXTERNAL EXAM - Extremities Exam Extremities exam: Positive for: normal inspection, pedal pulses present - Neurological Exam Neurological exam: Alert, CN II-XII Intact, Oriented x3 - Psychiatric Exam Psychiatric exam: Flat Affect - Skin Skin Exam: Intact Assessment and Plan (1) Diverticulitis Status: Acute (2) Unexplained weight loss Status: Acute (3) DM2 (diabetes mellitus, type 2) Status: Chronic (4) Renal transplant, status post Status: Chronic (5) Hypercalcemia Status: Acute - Assessment and Plan (Free Text) Plan: 1. Resume IVF 2. PATIENT does not know sx name, called daughter\left message
--- NOTE | 2016-12-20 21:00 | PN ---
DATE: 12/20/2016 ROOM: 667 SUBJECTIVE: This is a 61-year-old female with known history of type 2 diabetes, hypertension and cur rently on anti-rejection immunosuppressive therapy for a prior renal transplant and is being followed closely for metabolic management of recent symptomatic hypercalcemia, which has improved over the la st few days with inpatient management. Her latest chemistries showed a BUN of 20, sodium 132, potass ium 4.7, chloride 106, CO2 20, glucose 118 and creatinine 0.8. Her glucose levels have ranged from 1 59-186 mg/dL. Her latest calcium levels are actually 11.1 with an albumin of 2.3 and corrected calci um of 12.8 mg/dL. Her parathyroid hormone level was reported 77 which really excludes a parathyroid- related etiology for hypercalcemia. Because of the progressive weight loss and cachexia, we have to pursue the malignancy workup for hypercalcemia as noted. We will continue the Januvia given as 25 mg once daily and we will add Prandin given as 0.5 mg p.o. t.i.d. with meals as ordered. We will obtai n serial chemistries and supplement accordingly as needed. We will follow. Evie Wellington MD cc: [id number] TT: 12/20/2016 20:59:21 Confirmation # [id number] Dictation # [id number] mishel
[2016-12-21] MEDS: Ciprofloxacin 200mg/100ml D5W 100 ML IVPB SCH ×3 (03:15→14:20)
[2016-12-21 03:24] LABS: TOTAL PROTEIN, SERUM 4.8 g/dL (6.1-8.1)
[2016-12-21] MEDS: metroNIDAZOLE 500mg/100ml NS 100 ML IVPB SCH ×2 (05:57→14:20)
[2016-12-21] MEDS: Insulin Lispro (humaLOG) 100 Units/ml Inj SC SCH ×3 (06:32→16:10)
[2016-12-21 07:21] LABS: HEMATOCRIT 36.8 % (34.0-47.0); MEAN CORPUSCULAR HEMOGLOBIN 27.6 pg (27.0-31.0); MEAN CORPUSCULAR HGB CONC 32.9 g/dL (33.0-37.0); RED CELL DISTRIBUTION WIDTH 15.4 % (11.5-14.5); WHITE BLOOD COUNT 8.2 K/uL (4.8-10.8)
[2016-12-21 07:46] LABS: ALB/GLOB RATIO 0.8 (1.0-2.1); ALKALINE PHOSPHATASE 94 U/L (38-126); ALT/SGPT 19 U/L (9-52); AST/SGOT 15 U/L (14-36); BILIRUBIN,TOTAL 0.3 mg/dl (0.2-1.3); BLOOD UREA NITROGEN 15 mg/dl (7-17); CALCIUM 10.7 mg/dL (8.4-10.2); CARBON DIOXIDE 23 mmol/L (22-30); CHLORIDE 103 mmol/L (98-107); GFR AFRICAN-AMERICAN > 60; GLUCOSE,RANDOM 152 mg/dL (65-105); POTASSIUM 4.5 MMOL/L (3.6-5.0); SODIUM 132 mmol/l (132-148); TOTAL PROTEIN 5.1 G/DL (6.3-8.2)
--- NOTE | 2016-12-21 08:02 | CP.PCM.PN ---
<eCce De La O - Last Filed: 12/21/16 08:00> Subjective - Date & Time of Evaluation Date of Evaluation: 12/21/16 Time of Evaluation: 08:00 - Subjective Subjective: General Surgery - Dr. Wilson Pt S&E. CARLOS. Pt has mild LLQ abdominal pain but states it is improving. She had no further BM yesterday. Pt tolerated transfusion well, 2 U PRBC yesterday and hgb today is up to 12.1. Objective - Vital Signs/Intake and Output Vital Signs (last 24 hours): Temp Pulse Resp BP Pulse Ox 98.2 F 78 20 146/72 98 12/21/16 03:40 12/21/16 03:40 12/21/16 03:40 12/21/16 03:40 12/21/16 03:40 - Medications Medications: Current Medications Amlodipine Besylate (Norvasc) 5 mg PO DAILY [facility] Last Admin: 12/20/16 09:02 Dose: 5 mg Cinacalcet (Sensipar) 30 mg PO DAILY [facility] Last Admin: 12/20/16 09:03 Dose: 30 mg Dextrose (Dextrose 50% Inj) 0 ml IV STAT PRN; Protocol PRN Reason: Hyglycemia Protocol Last Admin: 12/19/16 12:53 Dose: 50 ml Dextrose (Glutose 15) 0 gm PO ONCE PRN; Protocol PRN Reason: Hypoglycemia Protocol Famotidine (Pepcid) 20 mg PO DAILY [facility] Glucagon (Glucagen Diagnostic Kit) 0 mg IM STAT PRN; Protocol PRN Reason: Hypoglycemia Protocol Ciprofloxacin (Cipro 200mg/100ml D5w) 100 mls @ 100 mls/hr IVPB Q12H [facility] Last Admin: 12/21/16 04:00 Dose: 100 mls/hr Metronidazole (Flagyl 500mg/100ml Ns) 100 mls @ 100 mls/hr IVPB Q8H [facility] Last Admin: 12/21/16 05:57 Dose: 100 mls/hr Iron Sucrose 100 mg/ Sodium (Chloride) 105 mls @ 105 mls/hr IVPB DAILY [facility] Stop: 12/26/16 23:59 Last Admin: 12/20/16 09:40 Dose: 105 mls/hr Insulin Human Lispro (Humalog) 0 units SC ACHS [facility] PRN Reason: Protocol Last Admin: 12/21/16 06:32 Dose: Not Given Magnesium Chloride (Mag Delay 64mg) 1 tab PO DAILY [facility] Mycophenolate Mofetil (Cellcept Cap) 250 mg PO BID [facility] Last Admin: 12/20/16 16:11 Dose: 250 mg Potassium Phos/Sodium Phos (Neutra-Phos) 1 pkt PO BID [facility] Last Admin: 12/20/16 16:53 Dose: 1 pkt Prednisone (Prednisone Tab) 5 mg PO DAILY [facility] Last Admin: 12/20/16 09:02 Dose: 5 mg Repaglinide (Prandin) 0.5 mg PO TIDAC [facility] Last Admin: 12/20/16 16:53 Dose: 0.5 mg Sitagliptin Phosphate (Januvia) 25 mg PO DAILY [facility] Last Admin: 12/20/16 09:02 Dose: 25 mg Tacrolimus (Prograf Cap) 5 mg PO BID [facility] Last Admin: 12/20/16 16:11 Dose: 5 mg Trimethoprim/Sulfamethoxazole (Bactrim Ss Tab) 1 tab PO MWF [facility] Last Admin: 12/19/16 09:30 Dose: 1 tab - Labs Labs: 12/21/16 06:35 12/21/16 06:35 PT 11.1 SECONDS (9.6-11.2) 12/18/16 00:48 INR 1.07 (0.92-1.08) 12/18/16 00:48 APTT 24.9 SECONDS (23.3-32.5) 12/18/16 00:48 - Constitutional Appears: No Acute Distress - Head Exam Head Exam: ATRAUMATIC, NORMAL INSPECTION, NORMOCEPHALIC - Respiratory Exam Respiratory Exam: NORMAL BREATHING PATTERN. absent: Respiratory Distress - GI/Abdominal Exam GI & Abdominal Exam: Distended (LLQ mildly distended), Soft, Tenderness (mild ttp LLQ). absent: Firm, Guarding, Rebound - Neurological Exam Neurological Exam: Alert, Oriented x3 - Psychiatric Exam Psychiatric exam: Normal Affect, Normal Mood - Skin Skin Exam: Dry, Intact Assessment and Plan - Assessment and Plan (Free Text) Assessment: 61F w/ hx of R kidney transplant admitted due to a fall, w/ recent weight loss, abdominal pain and GI bleed -s/p transfusion 2U PRBC yesterday, Hgb improved to 12.1 -No further BM yesterday -Continue Abx and soft diet as tolerated -No Surgical intervention at this time Will DW Dr. Steve De La O PGY2 <Reno Wilson - Last Filed: 12/21/16 09:22> Subjective - Date & Time of Evaluation Time of Evaluation: 09:00 - Subjective Subjective: Patient was seen and examined at the bedside. Agree with resident's note above. Objective - Vital Signs/Intake and Output Vital Signs (last 24 hours): Temp Pulse Resp BP Pulse Ox 97.4 F L 74 20 132/76 95 12/21/16 08:26 12/21/16 08:26 12/21/16 08:26 12/21/16 08:26 12/21/16 08:26 - Medications Medications: Current Medications Amlodipine Besylate (Norvasc) 5 mg PO DAILY [facility] Last Admin: 12/20/16 09:02 Dose: 5 mg Cinacalcet (Sensipar) 30 mg PO DAILY [facility] Last Admin: 12/20/16 09:03 Dose: 30 mg Dextrose (Dextrose 50% Inj) 0 ml IV STAT PRN; Protocol PRN Reason: Hyglycemia Protocol Last Admin: 12/19/16 12:53 Dose: 50 ml Dextrose (Glutose 15) 0 gm PO ONCE PRN; Protocol PRN Reason: Hypoglycemia Protocol Docusate Sodium (Colace) 100 mg PO BID PRN PRN Reason: constipation Famotidine (Pepcid) 20 mg PO DAILY [facility] Glucagon (Glucagen Diagnostic Kit) 0 mg IM STAT PRN; Protocol PRN Reason: Hypoglycemia Protocol Ciprofloxacin (Cipro 200mg/100ml D5w) 100 mls @ 100 mls/hr IVPB Q12H [facility] Last Admin: 12/21/16 04:00 Dose: 100 mls/hr Metronidazole (Flagyl 500mg/100ml Ns) 100 mls @ 100 mls/hr IVPB Q8H [facility] Last Admin: 12/21/16 05:57 Dose: 100 mls/hr Iron Sucrose 100 mg/ Sodium (Chloride) 105 mls @ 105 mls/hr IVPB DAILY [facility] Stop: 12/26/16 23:59 Last Admin: 12/20/16 09:40 Dose: 105 mls/hr Magnesium Sulfate/Dextrose (Magnesium Sulfate 1 Gm/100 Ml D5w) 1 gm in 100 mls @ 100 mls/hr IVPB ONCE ONE PRN Reason: 1 GM/HR Stop: 12/21/16 10:08 Sodium Chloride (Sodium Chloride 0.9%) 1,000 mls @ 100 mls/hr IV .Q10H [facility] Stop: 12/22/16 09:13 Insulin Human Lispro (Humalog) 0 units SC ACHS [facility] PRN Reason: Protocol Last Admin: 12/21/16 06:32 Dose: Not Given Magnesium Chloride (Mag Delay 64mg) 1 tab PO DAILY [facility] Mycophenolate Mofetil (Cellcept Cap) 250 mg PO BID [facility] Last Admin: 12/20/16 16:11 Dose: 250 mg Potassium Phos/Sodium Phos (Neutra-Phos) 1 pkt PO BID [facility] Last Admin: 12/20/16 16:53 Dose: 1 pkt Prednisone (Prednisone Tab) 5 mg PO DAILY [facility] Last Admin: 12/20/16 09:02 Dose: 5 mg Repaglinide (Prandin) 0.5 mg PO TIDAC [facility] Last Admin: 12/20/16 16:53 Dose: 0.5 mg Sitagliptin Phosphate (Januvia) 25 mg PO DAILY [facility] Last Admin: 12/20/16 09:02 Dose: 25 mg Tacrolimus (Prograf Cap) 5 mg PO BID [facility] Last Admin: 12/20/16 16:11 Dose: 5 mg Trimethoprim/Sulfamethoxazole (Bactrim Ss Tab) 1 tab PO MWF [facility] Last Admin: 12/19/16 09:30 Dose: 1 tab - Labs Labs: 12/21/16 06:35 12/21/16 06:35 PT 11.1 SECONDS (9.6-11.2) 12/18/16 00:48 INR 1.07 (0.92-1.08) 12/18/16 00:48 APTT 24.9 SECONDS (23.3-32.5) 12/18/16 00:48 Assessment and Plan - Assessment and Plan (Free Text) Plan: - Continue diet - Pain control - Continue antibiotics - Monitor Hb/Hct - Repeat labs in am - Will follow
[2016-12-21] MEDS ORDERED: SlowMag 1 TAB PO SCH (09:00)
[2016-12-21] MEDS ORDERED: Magnesium Sulfate 1 gm in D5W 1 GM/100 ML BAG IVPB ONE (09:09)
[2016-12-21] MEDS ORDERED: Sodium Chloride 0.9% 1,000 ML IV SCH (09:15)
[2016-12-21] MEDS: Potassium & Sodium Phosphate PO SCH ×2 (09:18→16:11)
[2016-12-21] MEDS: Tmp-Smz 400 mg-80 mg SS Tab PO SCH (09:18)
[2016-12-21 11:49] LABS: BETA 1 GLOBULIN 0.2 g/dL (0.4-0.6); BETA 2 GLOBULIN 0.3 g/dL (0.2-0.5); GAMMA GLOBULIN 0.9 g/dL (0.8-1.7)
--- NOTE | 2016-12-21 14:18 | CP.PCM.PN ---
Subjective - Date & Time of Evaluation Date of Evaluation: 12/20/16 Time of Evaluation: 11:15 - Subjective Subjective: diarrhea Objective - Vital Signs/Intake and Output Vital Signs (last 24 hours): Temp Pulse Resp BP Pulse Ox 97.4 F L 74 20 132/76 95 12/21/16 08:26 12/21/16 08:26 12/21/16 08:26 12/21/16 08:26 12/21/16 08:26 - Medications Medications: Current Medications Amlodipine Besylate (Norvasc) 5 mg PO DAILY [facility] Last Admin: 12/21/16 09:18 Dose: 5 mg Cinacalcet (Sensipar) 30 mg PO DAILY [facility] Last Admin: 12/21/16 09:18 Dose: 30 mg Dextrose (Dextrose 50% Inj) 0 ml IV STAT PRN; Protocol PRN Reason: Hyglycemia Protocol Last Admin: 12/19/16 12:53 Dose: 50 ml Dextrose (Glutose 15) 0 gm PO ONCE PRN; Protocol PRN Reason: Hypoglycemia Protocol Docusate Sodium (Colace) 100 mg PO BID PRN PRN Reason: constipation Famotidine (Pepcid) 20 mg PO DAILY [facility] Last Admin: 12/21/16 09:18 Dose: 20 mg Glucagon (Glucagen Diagnostic Kit) 0 mg IM STAT PRN; Protocol PRN Reason: Hypoglycemia Protocol Ciprofloxacin (Cipro 200mg/100ml D5w) 100 mls @ 100 mls/hr IVPB Q12H [facility] Last Admin: 12/21/16 04:00 Dose: 100 mls/hr Metronidazole (Flagyl 500mg/100ml Ns) 100 mls @ 100 mls/hr IVPB Q8H [facility] Last Admin: 12/21/16 05:57 Dose: 100 mls/hr Iron Sucrose 100 mg/ Sodium (Chloride) 105 mls @ 105 mls/hr IVPB DAILY [facility] Stop: 12/26/16 23:59 Last Admin: 12/21/16 10:02 Dose: 105 mls/hr Sodium Chloride (Sodium Chloride 0.9%) 1,000 mls @ 100 mls/hr IV .Q10H [facility] Stop: 12/22/16 09:13 Last Admin: 12/21/16 09:23 Dose: 100 mls/hr Insulin Human Lispro (Humalog) 0 units SC ACHS [facility] PRN Reason: Protocol Last Admin: 12/21/16 11:26 Dose: Not Given Magnesium Chloride (Mag Delay 64mg) 1 tab PO DAILY [facility] Mycophenolate Mofetil (Cellcept Cap) 250 mg PO BID [facility] Last Admin: 12/21/16 09:17 Dose: 250 mg Potassium Phos/Sodium Phos (Neutra-Phos) 1 pkt PO BID [facility] Last Admin: 12/21/16 09:18 Dose: 1 pkt Prednisone (Prednisone Tab) 5 mg PO DAILY [facility] Last Admin: 12/21/16 09:18 Dose: 5 mg Repaglinide (Prandin) 0.5 mg PO TIDAC [facility] Last Admin: 12/21/16 09:18 Dose: 0.5 mg Sitagliptin Phosphate (Januvia) 25 mg PO DAILY [facility] Last Admin: 12/21/16 09:18 Dose: 25 mg Tacrolimus (Prograf Cap) 5 mg PO BID [facility] Last Admin: 12/21/16 09:19 Dose: 5 mg Trimethoprim/Sulfamethoxazole (Bactrim Ss Tab) 1 tab PO MWF [facility] Last Admin: 12/21/16 09:18 Dose: 1 tab - Labs Labs: 12/21/16 06:35 12/21/16 06:35 PT 11.1 SECONDS (9.6-11.2) 12/18/16 00:48 INR 1.07 (0.92-1.08) 12/18/16 00:48 APTT 24.9 SECONDS (23.3-32.5) 12/18/16 00:48 - GI/Abdominal Exam GI & Abdominal Exam: Soft, Tenderness, Normal Bowel Sounds Assessment and Plan - Assessment and Plan (Free Text) Assessment: 61 yo female with abd pain now diarrhea cdiff pending outpatient colonoscopy once infectious process resolves
--- NOTE | 2016-12-21 14:19 | CP.PCM.PN ---
Subjective - Date & Time of Evaluation Date of Evaluation: 12/21/16 Time of Evaluation: 14:00 - Subjective Subjective: still with pain Objective - Vital Signs/Intake and Output Vital Signs (last 24 hours): Temp Pulse Resp BP Pulse Ox 97.4 F L 74 20 132/76 95 12/21/16 08:26 12/21/16 08:26 12/21/16 08:26 12/21/16 08:26 12/21/16 08:26 - Medications Medications: Current Medications Amlodipine Besylate (Norvasc) 5 mg PO DAILY [facility] Last Admin: 12/21/16 09:18 Dose: 5 mg Cinacalcet (Sensipar) 30 mg PO DAILY [facility] Last Admin: 12/21/16 09:18 Dose: 30 mg Dextrose (Dextrose 50% Inj) 0 ml IV STAT PRN; Protocol PRN Reason: Hyglycemia Protocol Last Admin: 12/19/16 12:53 Dose: 50 ml Dextrose (Glutose 15) 0 gm PO ONCE PRN; Protocol PRN Reason: Hypoglycemia Protocol Docusate Sodium (Colace) 100 mg PO BID PRN PRN Reason: constipation Famotidine (Pepcid) 20 mg PO DAILY [facility] Last Admin: 12/21/16 09:18 Dose: 20 mg Glucagon (Glucagen Diagnostic Kit) 0 mg IM STAT PRN; Protocol PRN Reason: Hypoglycemia Protocol Ciprofloxacin (Cipro 200mg/100ml D5w) 100 mls @ 100 mls/hr IVPB Q12H [facility] Last Admin: 12/21/16 04:00 Dose: 100 mls/hr Metronidazole (Flagyl 500mg/100ml Ns) 100 mls @ 100 mls/hr IVPB Q8H [facility] Last Admin: 12/21/16 05:57 Dose: 100 mls/hr Iron Sucrose 100 mg/ Sodium (Chloride) 105 mls @ 105 mls/hr IVPB DAILY [facility] Stop: 12/26/16 23:59 Last Admin: 12/21/16 10:02 Dose: 105 mls/hr Sodium Chloride (Sodium Chloride 0.9%) 1,000 mls @ 100 mls/hr IV .Q10H [facility] Stop: 12/22/16 09:13 Last Admin: 12/21/16 09:23 Dose: 100 mls/hr Insulin Human Lispro (Humalog) 0 units SC ACHS [facility] PRN Reason: Protocol Last Admin: 12/21/16 11:26 Dose: Not Given Magnesium Chloride (Mag Delay 64mg) 1 tab PO DAILY [facility] Mycophenolate Mofetil (Cellcept Cap) 250 mg PO BID [facility] Last Admin: 12/21/16 09:17 Dose: 250 mg Potassium Phos/Sodium Phos (Neutra-Phos) 1 pkt PO BID [facility] Last Admin: 12/21/16 09:18 Dose: 1 pkt Prednisone (Prednisone Tab) 5 mg PO DAILY [facility] Last Admin: 12/21/16 09:18 Dose: 5 mg Repaglinide (Prandin) 0.5 mg PO TIDAC [facility] Last Admin: 12/21/16 09:18 Dose: 0.5 mg Sitagliptin Phosphate (Januvia) 25 mg PO DAILY [facility] Last Admin: 12/21/16 09:18 Dose: 25 mg Tacrolimus (Prograf Cap) 5 mg PO BID [facility] Last Admin: 12/21/16 09:19 Dose: 5 mg Trimethoprim/Sulfamethoxazole (Bactrim Ss Tab) 1 tab PO MWF [facility] Last Admin: 12/21/16 09:18 Dose: 1 tab - Labs Labs: 12/21/16 06:35 12/21/16 06:35 PT 11.1 SECONDS (9.6-11.2) 12/18/16 00:48 INR 1.07 (0.92-1.08) 12/18/16 00:48 APTT 24.9 SECONDS (23.3-32.5) 12/18/16 00:48 - GI/Abdominal Exam GI & Abdominal Exam: Soft, Tenderness, Normal Bowel Sounds Assessment and Plan - Assessment and Plan (Free Text) Assessment: 61 yo female with diarrhea cdiff pending surgical consult appreciated
[2016-12-21 15:55] VITALS: BP 121/70; PULSE 78; RESP 17; TEMP 97.3; O2SAT 97
[2016-12-22 18:28] LABS: KAPPA/LAMBDA FREE RATIO 0.88 (0.26-1.65)
--- NOTE | 2016-12-24 08:29 | PN ---
DATE: 12/21/2016 ROOM: 667 SUBJECTIVE: This is a 61-year-old female with recent admission for malignant range hypercalcemia and is now being followed closely for metabolic management. She previously had chronic kidney disease w ith prior dialysis sessions and has since then received a renal transplant and currently apparently h as normal renal function at this time. Her glycemic fluctuations also have improved, and the latest glucose levels have ranged from 127 - 197 mg/dL. Her latest chemistries include a BUN of 15, sodium 132, potassium 4.5, chloride 103, CO2 of 23, glucose ____, and creatinine 0.9. Calcium 10.7 with an albumin level of 2.3, and corrected calcium of 12.4 mg/dL. Her parathyroid hormone levels are actual ly basically normal with a level of 77. So clearly ____ parathyroid related etiology of hypercalcemi a. She has ongoing workup for underlying malignancy and both ____ and GI are involved in her inpatie nt management____. We will continue the IV hydration as ordered and also the serial chemistries as eb brandon. We will also continue her Januvia given as 25 mg once daily and Prandin given as 0.5 mg t.i.d. before meals as ordered. This dual drug combination is a better complement combination to optimize her metabolic control. We will follow. Evie Wellington MD cc: [phone] TT: 12/21/2016 18:53:02 Confirmation # [id number] Dictation # [id number] mishel
--- NOTE | 2016-12-26 00:05 | CP.PCM.DIS ---
Provider - Provider Date of Admission: 12/18/16 02:11 Attending physician: Sasha El MD Time Spent in preparation of Discharge (in minutes): 30 Diagnosis - Discharge Diagnosis (1) Diverticulitis Status: Acute (2) Unexplained weight loss Status: Acute (3) DM2 (diabetes mellitus, type 2) Status: Chronic (4) Renal transplant, status post Status: Chronic (5) Hypercalcemia Status: Acute Hospital Course - Lab Results Lab Results: Micro Results 12/18/16 11:20 Blood Blood Culture - Final NO GROWTH AFTER 5 DAYS 12/18/16 11:20 Blood Gram Stain - Final TEST NOT PERFORMED Most Recent Lab Values WBC 8.2 K/uL (4.8-10.8) 12/21/16 06:35 RBC 4.38 Mil/uL (3.80-5.20) 12/21/16 06:35 Hgb 12.1 g/dL (12.0-16.0) D 12/21/16 06:35 Hct 36.8 % (34.0-47.0) 12/21/16 06:35 MCV 84.0 fl (81.0-99.0) D 12/21/16 06:35 MCH 27.6 pg (27.0-31.0) 12/21/16 06:35 MCHC 32.9 g/dL (33.0-37.0) L 12/21/16 06:35 RDW 15.4 % (11.5-14.5) H 12/21/16 06:35 Plt Count 187 K/uL (130-400) 12/21/16 06:35 MPV 7.5 fl (7.2-11.7) 12/20/16 08:46 Neut % (Auto) 81.1 % (50.0-75.0) H 12/20/16 08:46 Lymph % (Auto) 9.9 % (20.0-40.0) L 12/20/16 08:46 [place] % (Auto) 8.8 % (0.0-10.0) 12/20/16 08:46 Eos % (Auto) 0.1 % (0.0-4.0) 12/20/16 08:46 Baso % (Auto) 0.1 % (0.0-2.0) 12/20/16 08:46 Neut # 10.7 K/uL (1.8-7.0) H 12/20/16 08:46 Lymph # 1.3 K/uL (1.0-4.3) 12/20/16 08:46 [place] # 1.2 K/uL (0.0-0.8) H 12/20/16 08:46 Eos # 0.0 K/uL (0.0-0.7) 12/20/16 08:46 Baso # 0.0 K/uL (0.0-0.2) 12/20/16 08:46 Neutrophils % (Manual) 83 % (42-75) H 12/19/16 06:10 Band Neutrophils % 9 % (0-2) H 12/19/16 06:10 Lymphocytes % (Manual) 6 % (20-50) L 12/19/16 06:10 Monocytes % (Manual) 2 % (0-10) 12/19/16 06:10 Toxic Granulation Present 12/19/16 06:10 Platelet Estimate Normal (NORMAL) 12/19/16 06:10 Large Platelets Present 12/19/16 06:10 Hypochromasia (manual) Moderate 12/19/16 06:10 Anisocytosis (manual) Slight 12/19/16 06:10 Tear Drop Cells Slight 12/18/16 00:48 Retic Count 2.1 % (0.5-1.5) H 12/20/16 07:25 PT 11.1 SECONDS (9.6-11.2) 12/18/16 00:48 INR 1.07 (0.92-1.08) 12/18/16 00:48 APTT 24.9 SECONDS (23.3-32.5) 12/18/16 00:48 Sodium 132 mmol/l (132-148) 12/21/16 06:35 Potassium 4.5 MMOL/L (3.6-5.0) 12/21/16 06:35 Chloride 103 mmol/L (98-107) 12/21/16 06:35 Carbon Dioxide 23 mmol/L (22-30) 12/21/16 06:35 Anion Gap 10 (10-20) 12/21/16 06:35 BUN 15 mg/dl (7-17) 12/21/16 06:35 Creatinine 0.9 mg/dL (0.7-1.2) 12/21/16 06:35 Est GFR ( Amer) > 60 12/21/16 06:35 Est GFR (Non-Af Amer) > 60 12/21/16 06:35 POC Glucose (mg/dL) 206 mg/dL (65-110) H 12/21/16 16:03 Random Glucose 152 mg/dL (65-105) H 12/21/16 06:35 Hemoglobin A1c 7.3 % (4.2-6.5) H 12/18/16 11:20 Calcium 10.7 mg/dL (8.4-10.2) H 12/21/16 06:35 Phosphorus 3.2 mg/dl (2.5-4.5) 12/20/16 07:25 Magnesium 1.5 MG/DL (1.6-2.3) L 12/20/16 10:10 Iron 11 ug/dL (37-170) L 12/19/16 10:11 TIBC 132 ug/dL (250-450) L 12/19/16 10:11 % Saturation 9 % (20-55) L 12/19/16 10:11 Ferritin 1130.0 ng/mL 12/19/16 10:11 Total Bilirubin 0.3 mg/dl (0.2-1.3) 12/21/16 06:35 AST 15 U/L (14-36) 12/21/16 06:35 ALT 19 U/L (9-52) 12/21/16 06:35 Alkaline Phosphatase 94 U/L (38-126) 12/21/16 06:35 Total Protein 5.1 G/DL (6.3-8.2) L 12/21/16 06:35 Total Protein (PEP) 4.8 g/dL (6.1-8.1) L 12/20/16 07:25 Albumin 2.3 g/dL (3.5-5.0) L 12/21/16 06:35 Albumin (PEP) 2.1 g/dL (3.8-4.8) L 12/20/16 07:25 Globulin 2.8 gm/dL (2.2-3.9) 12/21/16 06:35 Albumin/Globulin Ratio 0.8 (1.0-2.1) L 12/21/16 06:35 Apvoi-1-Lhiyhbksz 0.6 g/dL (0.2-0.3) H 12/20/16 07:25 Plvbo-5-Ovzutqstp 0.7 g/dL (0.5-0.9) 12/20/16 07:25 Zuru-3-Tqtrmdbi 0.2 g/dL (0.4-0.6) L 12/20/16 07:25 Mgoo-1-Rmqmqtjg 0.3 g/dL (0.2-0.5) 12/20/16 07:25 Gamma Globulins 0.9 g/dL (0.8-1.7) 12/20/16 07:25 Abnorm Protein Band 1 TEST NOT PERFORMED 12/20/16 07:25 Abnorm Protein Band 2 TEST NOT PERFORMED 12/20/16 07:25 Abnorm Protein Band 3 TEST NOT PERFORMED 12/20/16 07:25 Vitamin B12 696 pg/mL (239-931) 12/19/16 10:11 25-OH Vitamin D Total 49.7 NG/ML (30.0-100.0) 12/19/16 06:10 Folate > 20.0 ng/mL 12/19/16 10:11 Calcitonin <2 pg/mL (<=5) 12/20/16 07:25 Free T4 1.64 ng/dL (0.78-2.19) 12/19/16 06:10 Thyroxine (T4) 4.69 ug/dl (5.5-11.0) L 12/19/16 06:10 Thyroglobulin, Quant 36.9 ng/mL (2.8-40.9) 12/19/16 06:10 TSH 3rd Generation 0.38 mIU/ML (0.46-4.68) L 12/19/16 06:10 PTH Intact Whole Molec 77 pg/mL (14-64) H 12/18/16 13:00 PTH Related Protein 11 pg/mL (14-27) L 12/19/16 06:10 Cortisol AM Sample 9.6 ug/dL (4.46-22.7) 12/19/16 06:10 ACTH 11 pg/mL (6-50) 12/19/16 06:10 Urine Color Yellow (YELLOW) 12/19/16 05:59 Urine Clarity Slighty-cloudy (Clear) 12/19/16 05:59 Urine pH 5.0 (5.0-8.0) 12/19/16 05:59 Ur Specific [place] 1.010 (1.003-1.030) 12/19/16 05:59 Urine Protein Negative mg/dL (NEGATIVE) 12/19/16 05:59 Urine Glucose (UA) Neg mg/dL (Normal) 12/19/16 05:59 Urine Ketones Negative mg/dL (NEGATIVE) 12/19/16 05:59 Urine Blood Negative (NEGATIVE) 12/19/16 05:59 Urine Nitrate Negative (NEGATIVE) 12/19/16 05:59 Urine Bilirubin Negative (NEGATIVE) 12/19/16 05:59 Urine Urobilinogen 0.2-1.0 mg/dL (0.2-1.0) 12/19/16 05:59 Ur Leukocyte Esterase Neg Benigno/uL (Negative) 12/19/16 05:59 Urine RBC (Auto) < 1 /hpf (0-3) 12/19/16 05:59 Urine Microscopic WBC 3 /hpf (0-5) 12/19/16 05:59 Ur Squamous Epith Cells 5 /hpf (0-5) 12/19/16 05:59 Urine Bacteria Rare (<OCC) 12/19/16 05:59 Stool Occult Blood Positive (NEGATIVE) H 12/18/16 16:57 INEZ & SPEP Interp See note 12/20/16 07:25 Serum Immunofixation See note 12/20/16 07:25 Thyroglobulin Antibody <1 IU/mL (< OR = 1) 12/19/16 06:10 [place]/Lambda Light Chain (()) 12/20/16 07:25 Free [place] Light Chains 32.5 mg/L (3.3-19.4) H 12/20/16 07:25 Free Lambda Light Chain 37.1 mg/L (5.7-26.3) H 12/20/16 07:25 Free [place]/Lambda Ratio 0.88 (0.26-1.65) 12/20/16 07:25 Blood Type O POSITIVE 12/20/16 11:25 Antibody Screen Negative 12/20/16 11:25 Crossmatch See Detail 12/20/16 11:25 BBK History Checked Patient has bt 12/20/16 11:25 Discharge Exam - Head Exam Head Exam: ATRAUMATIC, NORMOCEPHALIC - Additional Findings Additional findings: ppears: No Acute Distress, Cachectic, Chronically Ill - Head Exam Head Exam: ATRAUMATIC, NORMOCEPHALIC - Eye Exam Eye Exam: EOMI, PERRL. absent: Scleral icterus - ENT Exam ENT Exam: Mucous Membranes Dry - Neck Exam Neck exam: Negative for: Lymphadenopathy - Respiratory Exam Respiratory Exam: Clear to Auscultation Bilateral, NORMAL BREATHING PATTERN - Cardiovascular Exam Cardiovascular Exam: REGULAR RHYTHM, +S1, +S2 - GI/Abdominal Exam GI & Abdominal Exam: Normal Bowel Sounds, Soft, Tenderness Additional comments: mild abdominal area - Exam External exam: NORMAL EXTERNAL EXAM - Extremities Exam Extremities exam: Positive for: normal inspection, pedal pulses present - Neurological Exam Neurological exam: Alert, CN II-XII Intact, Oriented x3 - Psychiatric Exam Psychiatric exam: Flat Affect - Skin Skin Exam: Intact Discharge Plan - Discharge Medications Prescriptions: Ciprofloxacin IV [Cipro] 200 mg IVPB Q12 #8 vial metroNIDAZOLE [Flagyl] 500 mg PO Q8 #15 tab Iron Sucrose [Venofer] 100 mg IV DAILY #4 vial - Follow Up Plan Condition: FAIR Disposition: TRANSF TO SNF Instructions: How to Prevent Pressure Ulcers (DC), Fall Prevention for Older Adults (GEN), Diabetes and Your Skin (DC) Additional Instructions: patient cleared for discharge to [facility] today by , / f/u with in [facility] cont. to monitor labs cont. PT/OT Referrals: Raghu Medina MD, PhD [Staff Provider] - Sasha El MD [Medical Doctor] -
== END 2016-12-21 18:57 | DRG 182 ==
LOC: H.ER 23:56 → H.ERHOLD 12-18 02:11 → H.MEDSURG1 12-18 06:31
PROVIDERS: ADMIT Internal Medicine; ATTEND Internal Medicine
PROC: 30233N1 Transfusion of Nonautologous Red Blood Cells into Peripheral Vein, Percutaneous Approach (ICD-10-PCS; principal; 2016-12-20)
DX: K57.32 Diverticulitis of large intestine without perforation or abscess without bleeding (principal); R64 Cachexia; E11.22 Type 2 diabetes mellitus with diabetic chronic kidney disease; I12.0 Hypertensive chronic kidney disease with stage 5 chronic kidney disease or end stage renal disease; N18.6 End stage renal disease; E11.319 Type 2 diabetes mellitus with unspecified diabetic retinopathy without macular edema; E11.42 Type 2 diabetes mellitus with diabetic polyneuropathy; E11.649 Type 2 diabetes mellitus with hypoglycemia without coma; N39.0 Urinary tract infection, site not specified; E83.52 Hypercalcemia; E86.0 Dehydration; Z94.0 Kidney transplant status; D63.8 Anemia in other chronic diseases classified elsewhere; E11.65 Type 2 diabetes mellitus with hyperglycemia; E83.42 Hypomagnesemia; E78.5 Hyperlipidemia, unspecified; Z68.1 Body mass index [BMI] 19.9 or less, adult; E04.1 Nontoxic single thyroid nodule; G89.29 Other chronic pain; E78.00 Pure hypercholesterolemia, unspecified; Z79.4 Long term (current) use of insulin; Z88.1 Allergy status to other antibiotic agents; Z91.041 Radiographic dye allergy status

== ENCOUNTER 2017-01-18 17:21 | Inpatient (IN) | payer MEDICAID ==
[2017-01-18 17:21] VITALS: BMI 19.5
--- NOTE | 2017-01-18 18:06 | RAD ---
HISTORY: weakness COMPARISON: 04/29/2016 FINDINGS: LUNGS: No active pulmonary disease. PLEURA: No significant pleural effusion identified, no pneumothorax apparent. CARDIOVASCULAR: Normal. OSSEOUS STRUCTURES: No significant abnormalities. VISUALIZED UPPER ABDOMEN: Normal. OTHER FINDINGS: Right axillary vascular stent noted IMPRESSION: No active disease.
[2017-01-18 18:21] LABS: ALB/GLOB RATIO 1.1 (1.0-2.1); ALBUMIN 3.1 g/dL (3.5-5.0); ALT/SGPT 25 U/L (9-52); AST/SGOT 20 U/L (14-36); BLOOD UREA NITROGEN 20 mg/dl (7-17); CALCIUM 11.2 mg/dL (8.4-10.2); GFR AFRICAN-AMERICAN > 60; GFR NON-AFRICAN AMERICAN > 60; MAGNESIUM 1.3 MG/DL (1.6-2.3)
[2017-01-18 18:22] LABS: BASO % 0.2 % (0.0-2.0); HEMOGLOBIN 9.7 g/dL (12.0-16.0); LYMPH # 1.6 K/uL (1.0-4.3); LYMPH % 9.9 % (20.0-40.0); MEAN CORPUSCULAR HEMOGLOBIN 26.8 pg (27.0-31.0); MEAN CORPUSCULAR HGB CONC 30.8 g/dL (33.0-37.0); MEAN PLATELET VOLUME 6.5 fl (7.2-11.7); MONO # 0.8 K/uL (0.0-0.8); MONO % 4.6 % (0.0-10.0); NEUT % 85.3 % (50.0-75.0); PLATELET COUNT 291 K/uL (130-400); RBC 3.61 Mil/uL (3.80-5.20); RED CELL DISTRIBUTION WIDTH 17.3 % (11.5-14.5); WHITE BLOOD COUNT 16.5 K/uL (4.8-10.8)
--- NOTE | 2017-01-18 18:28 | ED PDOC ---
HPI: General Adult Time Seen by Provider: 01/18/17 17:31 Chief Complaint (Nursing): Abnormal Labs Chief Complaint (Provider): Abnormal Labs History Per: Patient History/Exam Limitations: no limitations Onset/Duration Of Symptoms: Days (x1 week) Current Symptoms Are (Timing): Still Present Additional Complaint(s): 61 y/o female with a past medical history of anemia, chronic kidney disease, hypertension, and diabetes who presents to the emergency department with a complaint of weakness x1 week. Associated with malaise, fatigue, loose stool diarrhea due to taking Antibiotics, and lower left abdominal pain in setting of known diverticulitis (currently under treatment). Denies black/bloody stools, focal weakness, numbness, chest pain, and palpitations, Of note, patient was sent to the ER after blood work at long term demonstrated high calcium levels. PMD: Dr. Sienna LUNA Past Medical History Reviewed: Historical Data, Nursing Documentation, Vital Signs Vital Signs: Last Vital Signs Temp 97.6 F 01/19/17 09:00 Pulse 72 01/19/17 08:44 Resp 20 01/19/17 08:36 BP 107/51 L 01/19/17 08:44 Pulse Ox 100 01/19/17 22:23 - Medical History PMH: Anemia, Diabetes, HTN, Hypercholesterolemia, Chronic Kidney Disease ( kidney transplant) - Surgical History Surgical History: Other surgeries: Left upper extrm AV shunt - Family History Family History: States: Unknown Family Hx - Living Arrangements Living Arrangements: [facility] - Social History Current smoker - smoking cessation education provided: No Alcohol: None Drugs: Denies - Home Medications Home Medications: Ambulatory Orders Medication Instructions Recorded Acetaminophen [Tylenol 325mg tab] 650 mg PO Q4H PRN 01/18/17 Acetaminophen [Tylenol 325mg tab] 650 mg PO Q4H PRN 01/18/17 Cinacalcet [Sensipar] 30 mg PO DAILY 01/18/17 Docusate [Colace] 100 mg PO Q12H PRN 01/18/17 Insulin Aspart, Recombinant 1 - 7 unit SC BID 01/18/17 [Novolog] Mycophenolate [Cellcept Cap] 250 mg PO BID 01/18/17 Repaglinide [Prandin] 0.5 mg PO AC 01/18/17 Sulfamethoxazole/Trimethoprim 1 tab PO MOWEFR 01/18/17 [Bactrim DS Tab] Tacrolimus [Prograf] 5 mg PO BID 01/18/17 Vitamin A/D [Vitamin A&D] 1 appl TOP QSHIFT 01/18/17 amLODIPine [Norvasc] 5 mg PO DAILY 01/18/17 predniSONE [predniSONE Tab] 5 mg PO DAILY 01/18/17 - Allergies Allergies/Adverse Reactions: Allergies Allergy/AdvReac Type Severity Reaction Status Date / Time cefazolin Allergy ITCHING Verified 03/13/16 12:44 iodine Allergy ITCHING Verified 03/13/16 12:44 vancomycin Allergy ITCHING Verified 03/13/16 12:44 Review of Systems ROS Statement: Except As Marked, All Systems Reviewed And Found Negative Constitutional: Positive for: Weakness, Malaise, Other (Fatigue) Cardiovascular: Negative for: Chest Pain, Palpitations Gastrointestinal: Positive for: Abdominal Pain (LLQ Region in setting of known diverticulitis), Diarrhea (Loose stools). Negative for: Melena, Hematochezia Neurological: Negative for: Weakness (Focal weakness), Numbness Physical Exam - Reviewed Nursing Documentation Reviewed: Yes Vital Signs Reviewed: Yes - Physical Exam Appears: Positive for: Non-toxic (Appearing chronically ill), No Acute Distress Head Exam: Positive for: ATRAUMATIC, NORMAL INSPECTION, NORMOCEPHALIC Skin: Positive for: Warm, Dry, Pallor ENT: Positive for: Normal ENT Inspection. Negative for: Pharyngeal Erythema Neck: Positive for: Normal, Supple Cardiovascular/Chest: Positive for: Regular Rate, Rhythm. Negative for: Murmur Respiratory: Positive for: Normal Breath Sounds. Negative for: Accessory Muscle Use, Respiratory Distress Gastrointestinal/Abdominal: Positive for: Soft, Tenderness (Minimal tenderness to depalpation at the LLQ. ). Negative for: Distended, Guarding, Rebound Extremity: Positive for: Normal ROM, Other (bilateral upper extremity petechiae) . Negative for: Pedal Edema Neurologic/Psych: Positive for: Alert, Oriented - Laboratory Results Result Diagrams: 01/19/17 05:30 01/19/17 05:30 - ECG O2 Sat by Pulse Oximetry: 100 (RA) Pulse Ox Interpretation: Normal Medical Decision Making Medical Decision Making: Time: 17:46 Initial impression: Hypercalcaemia, diverticulitis, and anemia. Initial plan: --Type and Screen STAT --Electrocardiogram STAT --COMP Metabolic Panel --Lact Acid, Plasma --Magnesium STAT --ED Urine Dipstick (POC) --EKG-ED --CBC w/ differential --Partial Thromboplastin Time (COAG) --Prothrombin Time --Blood Culture STAT --Urine Culture STAT --Fisheries Biologist CONT --IV Insertion --AccuCheck --Urinalysis STAT --Reevaluation --I reviewed Labs sent by long term over the last month and patient has had progressive anemia and hypercalcaemia. Time: 18:05 --Chest X-ray FINDINGS: LUNGS: No active pulmonary disease. PLEURA: No significant pleural effusion identified, no pneumothorax apparent. CARDIOVASCULAR: Normal. OSSEOUS STRUCTURES: No significant abnormalities. VISUALIZED UPPER ABDOMEN: Normal. OTHER FINDINGS: Right axillary vascular stent noted IMPRESSION: No active disease. Time: 19:00 --ED Urine Dipstick (POC) --Urine Culture TSAT Time: 19:23 --VIRA El at length. Pt has known diverticular abscess and was evaluated by Surgery on previous admission when pt was on medical service. At that time it was determined pt is not stable --Abd & Pelvis w/o PO & IV Contrast Time: 20:58 --Abd/pelvis CT FINDINGS: Lower thorax: Heart size is normal. There are coronary calcifications. There is a hiatal hernia. Lung bases are hyperinflated. There is scarring lung bases left greater than right. There is a small hiatal hernia ABDOMEN: Liver: unremarkable Gallbladder and bile ducts: Gallbladder is partially distended. There are multiple small calcified stones. Common bile duct is unremarkable. Pancreas: Pancreas is mildly atrophic. Spleen: unremarkable Adrenals: unremarkable Kidneys and ureters: [place] kidneys are atrophic. There is no dilatation. 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 There is a cyst in the transplanted kidney. There are no renal or ureteral stones.There is no pelvocaliectasis or ureterectasis. Stomach and bowel: Stomach is partially distended. There is an air-fluid level. Rotation is normal. Small bowel is mildly distended with fluid and air. There is no obstruction. There is fecalization of the terminal ileum. Appendix is unremarkable. There is moderate stool in the right colon. Descending colon is collapsed. There scattered diverticula. There continues to be marked thickening of the wall of the sigmoid. There are large sigmoid outpouching's containing enteric contents. There is no colonic obstruction Appendix: See stomach and bowel PELVIS: Bladder: unremarkable Reproductive: Uterus is lobular with calcifications. Adnexa are not well demonstrated. ABDOMEN and PELVIS: Intraperitoneal space:There is no free air. There is a small amount of free fluid in the pelvis without the sigmoid Bones/joints: Bony structures are osteopenic.There are degenerative changes in the osseus structures. Soft tissues: unremarkable Vasculature: There are calcifications in the aorta and iliacs. Extensive calcification in small vessels in the abdomen and pelvis area and Lymph nodes: There is shotty para-aortic adenopathy. 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 Time: 21:11 --Ciprofloxacin 400 mg in 200 ml IV --Metronidazole 500 mg IV Time: 21:29 --Admit to hospital routine: for Divertivulitis and anemia under PCP Dr. Andrew Hernandez Time: 21:30 --Nephrology Consult Routine: for chronic kidney disease with consult of Dr. Iza Glez MD --General Surgery Consult Routine for diverticular abscess with consulting physician Dr. Brad Walker MD -- Scribe Attestation: Documented by Helena Carrera, acting as a scribe for Candice Chicas MD. Provider Scribe Attestation: All medical record entries made by the Scribe were at my direction and personally dictated by me. I have reviewed the chart and agree that the record accurately reflects my personal performance of the history, physical exam, medical decision making, and the department course for this patient. I have also personally directed, reviewed, and agree with the discharge instructions and disposition. Disposition - Clinical Impression Clinical Impression: CKD (chronic kidney disease), Diverticulitis Counseled Patient/Family Regarding: Studies Performed, Diagnosis - Disposition Disposition Time: 21:00 Condition: STABLE - Pt Status Changed To: Hospital Disposition Of: Inpatient - Admit Certification Admit to Inpatient:: After my assessment, the patient will require hospitalization for at least two midnights. This is because of the severity of symptoms shown, intensity of services needed, and/or the medical risk in this patient being treated as an outpatient. - POA Present On Arrival: None
[2017-01-18 18:42] LABS: PARTIAL THROMBOPLASTIN TIME 26.5 Seconds (25.6-37.1); PROTHROMBIN TIME 11.5 Seconds (9.8-13.1)
[2017-01-18 19:35] LABS: SQUAMOUS EPITHIAL 6 /hpf (0-5); URINE BACTERIA OCC (<OCC); URINE BILIRUBIN NEGATIVE (NEGATIVE); URINE BLOOD NEGATIVE (NEGATIVE); URINE CLARITY SLIGHTY-CLOUDY (Clear); URINE COLOR YELLOW (YELLOW); URINE GLUCOSE (UA) NEG (Normal); URINE LEUKOCYTE ESTERASE MOD Leu/uL (Negative); URINE NITRATE NEGATIVE (NEGATIVE); URINE PROTEIN NEGATIVE (NEGATIVE); URINE UROBILINOGEN 0.2-1.0 mg/dL (0.2-1.0)
[2017-01-18 20:20] LABS: LYMPHOCYTE 5 % (20-50); MONOCYTE 3 % (0-10); NEUTROPHIL 92 % (42-75); TOTAL CELLS COUNTED 100
[2017-01-18 20:21] LABS: PLATELET ESTIMATE NORMAL (NORMAL)
--- NOTE | 2017-01-18 20:58 | CT ---
EXAM: CT Abdomen and Pelvis Without Intravenous Contrast CLINICAL HISTORY: 61 years old, female; Signs and symptoms; Other: Weakness; Additional info: Abd pain diverticulitis. Sent phy. Doc with request TECHNIQUE: Axial computed tomography images of the abdomen and pelvis without intravenous contrast. This CT exam was performed using one or more of the following dose reduction techniques: automated exposure control, adjustment of the mA and/or kV according to patient size, and/or use of iterative reconstruction technique. Coronal and sagittal reformatted images were created and reviewed. EXAM DATE/TIME: 01/18/2017 7:23 PM COMPARISON: CT - CHEST,ABDOMEN,PELVIS W/O CONT 12/18/2016 4:18:00 AM, CT abdomen pelvis 09/23/16, 03/13/16 FINDINGS: Lower thorax: Heart size is normal. There are coronary calcifications. There is a hiatal hernia. Lung bases are hyperinflated. There is scarring lung bases left greater than right. There is a small hiatal hernia ABDOMEN: Liver: unremarkable Gallbladder and bile ducts: Gallbladder is partially distended. There are multiple small calcified stones. Common bile duct is unremarkable. Pancreas: Pancreas is mildly atrophic. Spleen: unremarkable Adrenals: unremarkable Kidneys and ureters: [place] kidneys are atrophic. There is no dilatation. 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 There is a cyst in the transplanted kidney. There are no renal or ureteral stones.There is no pelvocaliectasis or ureterectasis. Stomach and bowel: Stomach is partially distended. There is an air-fluid level. Rotation is normal. Small bowel is mildly distended with fluid and air. There is no obstruction. There is fecalization of the terminal ileum. Appendix is unremarkable. There is moderate stool in the right colon. Descending colon is collapsed. There scattered diverticula. There continues to be marked thickening of the wall of the sigmoid. There are large sigmoid outpouching's containing enteric contents. There is no colonic obstruction Appendix: See stomach and bowel PELVIS: Bladder: unremarkable Reproductive: Uterus is lobular with calcifications. Adnexa are not well demonstrated. ABDOMEN and PELVIS: Intraperitoneal space:There is no free air. There is a small amount of free fluid in the pelvis without the sigmoid Bones/joints: Bony structures are osteopenic.There are degenerative changes in the osseus structures. Soft tissues: unremarkable Vasculature: There are calcifications in the aorta and iliacs. Extensive calcification in small vessels in the abdomen and pelvis area and Lymph nodes: There is shotty para-aortic adenopathy. 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
[2017-01-18] MEDS ORDERED: Ciprofloxacin 400mg/200ml D5W 400 MG/200 ML BAG IV STA (21:11)
[2017-01-18] MEDS ORDERED: metroNIDAZOLE 500mg/100ml NS 100 ML IV STA (21:12)
--- NOTE | 2017-01-18 21:12 | CP.PCM.CON ---
History of Present Illness - History of Present Illness History of Present Illness: Gen Sx: Dr Carter Pt is a 61F recently d/c from [facility] for colitis on 12/21. Pt was treated conservatively with IV abx, then D/C on cipro/flagyl to [facility]. Pt was sent back to [facility] for unclear reasons. Per the pt, she came back because she is supposed to have surgery. Unclear on where pt obtained this information. Currently pt states she has very minimal 1/10 pain in LLQ. Denies any N/V or F/ C. States she has had persistent diarrhea since last discharge. Denies any blood in the stool. No more than 2-3 times per day. Her pain is worse during defecation Pt has leukocytosis and CT shows colitis that appears unchanged from previous examination. PMH: DM, HTN PSH: kidney transplant, 2 c-sections All: Vanco, ancef, iodine Review of Systems - Review of Systems All systems: reviewed and no additional remarkable complaints except (as per hpi ) Past Patient History - Infectious Disease Hx of Infectious Diseases: None - Past Medical History & Family History Past Medical History?: Yes - Past Social History Alcohol: None Drugs: Denies - CARDIAC Hx Hypercholesterolemia: Yes Hx Hypertension: Yes - PULMONARY Hx Respiratory Disorders: No - NEUROLOGICAL Hx Neurological Disorder: No - HEENT Hx HEENT Problems: No - RENAL Hx Chronic Kidney Disease: Yes (kidney transplant) - ENDOCRINE/METABOLIC Hx Endocrine Disorders: Yes - HEMATOLOGICAL/ONCOLOGICAL Hx Anemia: Yes - INTEGUMENTARY Hx Dermatological Problems: No - MUSCULOSKELETAL/RHEUMATOLOGICAL Hx Falls: Yes - GASTROINTESTINAL Hx Gastrointestinal Disorders: Yes Hx Colitis: Yes - GENITOURINARY/GYNECOLOGICAL Hx Genitourinary Disorders: Yes (UTI) Hx Urinary Tract Infection: Yes - PSYCHIATRIC Hx Psychophysiologic Disorder: No Hx Substance Use: No - SURGICAL HISTORY Hx Surgeries: Yes Hx Arteriovenous Shunt: Yes Hx Section: Yes Hx Vascular Access Device: Yes Other/Comment: RIGHT KIDNEY TRANSPLANT - ANESTHESIA Hx Anesthesia: Yes Hx Anesthesia Reactions: No Hx Malignant Hyperthermia: No Meds Allergies/Adverse Reactions: Allergies Allergy/AdvReac Type Severity Reaction Status Date / Time cefazolin Allergy ITCHING Verified 03/13/16 12:44 iodine Allergy ITCHING Verified 03/13/16 12:44 vancomycin Allergy ITCHING Verified 03/13/16 12:44 Physical Exam - Constitutional Appears: Non-toxic, No Acute Distress - Respiratory Exam Respiratory Exam: absent: Accessory Muscle Use, Respiratory Distress - Cardiovascular Exam Cardiovascular Exam: REGULAR RHYTHM. absent: Tachycardia - GI/Abdominal Exam GI & Abdominal Exam: Soft. absent: Distended, Firm, Guarding, Hernia, Rebound, Tenderness - Rectal Exam Rectal Exam: absent: Deferred - Extremities Exam Extremities exam: Negative for: pedal edema - Neurological Exam Neurological exam: Alert, Oriented x3 - Psychiatric Exam Psychiatric exam: Normal Affect, Normal Mood - Skin Skin Exam: Normal Color, Warm Results - Vital Signs Recent Vital Signs: Last Vital Signs Temp 96.9 F L 01/18/17 17:23 Pulse 97 H 01/18/17 17:23 Resp 19 01/18/17 17:23 BP 146/51 L 01/18/17 17:23 Pulse Ox 100 01/18/17 21:10 - Labs Result Diagrams: 01/18/17 18:00 01/18/17 18:00 Labs: Laboratory Results - last 24 hr 01/18/17 01/18/17 01/18/17 18:00 18:00 18:00 WBC 16.5 H D RBC 3.61 L Hgb 9.7 L D Hct 31.5 L MCV 87.0 D MCH 26.8 L MCHC 30.8 L RDW 17.3 H Plt Count 291 D MPV 6.5 L Neut % (Auto) 85.3 H Lymph % (Auto) 9.9 L [place] % (Auto) 4.6 Eos % (Auto) 0.0 Baso % (Auto) 0.2 Neut # 14.0 H Lymph # 1.6 [place] # 0.8 Eos # 0.0 Baso # 0.0 Neutrophils % (Manual) 92 H Lymphocytes % (Manual) 5 L Monocytes % (Manual) 3 Platelet Estimate Normal PT INR APTT Sodium 134 Potassium 4.7 Chloride 104 Carbon Dioxide 23 Anion Gap 12 BUN 20 H Creatinine 0.9 Est GFR ( Amer) > 60 Est GFR (Non-Af Amer) > 60 Random Glucose 92 Lactic Acid 1.4 Calcium 11.2 H Phosphorus 2.0 L Magnesium 1.3 L Total Bilirubin 0.2 AST 20 ALT 25 Alkaline Phosphatase 75 Total Protein 6.0 L Albumin 3.1 L D Globulin 2.8 Albumin/Globulin Ratio 1.1 Urine Color Urine Clarity Urine pH Ur Specific [place] Urine Protein Urine Glucose (UA) Urine Ketones Urine Blood Urine Nitrate Urine Bilirubin Urine Urobilinogen Ur Leukocyte Esterase Urine RBC (Auto) Urine Microscopic WBC Ur Squamous Epith Cells Urine Bacteria Blood Type Antibody Screen BBK History Checked 01/18/17 01/18/17 01/18/17 18:00 18:00 18:38 WBC RBC Hgb Hct MCV MCH MCHC RDW Plt Count MPV Neut % (Auto) Lymph % (Auto) [place] % (Auto) Eos % (Auto) Baso % (Auto) Neut # Lymph # [place] # Eos # Baso # Neutrophils % (Manual) Lymphocytes % (Manual) Monocytes % (Manual) Platelet Estimate PT 11.5 INR 1.0 APTT 26.5 Sodium Potassium Chloride Carbon Dioxide Anion Gap BUN Creatinine Est GFR ( Amer) Est GFR (Non-Af Amer) Random Glucose Lactic Acid Calcium Phosphorus Magnesium Total Bilirubin AST ALT Alkaline Phosphatase Total Protein Albumin Globulin Albumin/Globulin Ratio Urine Color Yellow Urine Clarity Slighty-cloudy Urine pH 7.0 Ur Specific [place] 1.012 Urine Protein Negative Urine Glucose (UA) Neg Urine Ketones Negative Urine Blood Negative Urine Nitrate Negative Urine Bilirubin Negative Urine Urobilinogen 0.2-1.0 Ur Leukocyte Esterase Mod Urine RBC (Auto) 1 Urine Microscopic WBC 3 Ur Squamous Epith Cells 6 H Urine Bacteria Occ H Blood Type O POSITIVE Antibody Screen Negative BBK History Checked Patient has bt Assessment & Plan - Assessment and Plan (Free Text) Assessment: 61F presents with persistent colitis Plan: Pt appears to have persistent colitis despite abx treatment Pt needs IV abx NPO IV fluids No immediate surgical intent at this time, will continue to monitor Pt will need medical clearance moving forward d/w Dr Raul Barrera, PGY2 - Date & Time Date: 01/18/17 Time: 22:39
[2017-01-18] MEDS ORDERED: Ciprofloxacin 400mg/200ml D5W 400 MG/200 ML BAG IVPB ONE (21:53)
[2017-01-18] MEDS ORDERED: Vitamin A/D oint 60G TP SCH (22:30)
[2017-01-18] MEDS ORDERED: metroNIDAZOLE 500mg/100ml NS 100 ML IVPB ONE (22:35)
[2017-01-18] MEDS ORDERED: Sodium Chloride 0.9% 1,000 ML IV SCH (23:15)
--- NOTE | 2017-01-18 23:31 | CP.PCM.HP ---
History of Present Illness - History of Present Illness History of Present Illness: Hospitalist Admission H&P (Patient was seen and examined at 10:00 PM 01/18/17 ER Bed #15) PMD: Dr. El who will be away and asked the patient to be admitted to the [facility] Hospitalist Service CODE STATUS: FULL CODE. Does not have a living will/advance directive. Designates her Son Tyrel Poon [phone] as her Health Care Proxy. CHIEF COMPLAINT: Abnormal Labs Very pleasant 61 year old female who presents from [facility] with a chief complaint of abnormal labs. Patient states that she was told after lunch today that she needed to be taken to the hospital from [facility] because her blood work that was done in the morning was abnormal. Please note that this patient was recently admitted to [facility] from 12/18/16 through 12/21/16 at which time she was treated for Diverticulitis. During this admission a CT Abdomen/Pelvis revealed a large diverticulitis involving the sigmoid colon. She was treated with Ciprofloxacin 400 mg IV Q12H and Flagyl 500 mg IV Q8H from 12/18/16 through 12/21/16. Surgery Team evaluated the patient and their assessment was no surgical intervention at that time. She was discharged to [place] with Ciprofloxacin 200 mg IV Q12H and Flagyl 500 mg PO Q8H for 4 more days and then was discharged to [place]. Currently upon FULL ROS there is NO chest pain, NO palpitations, NO SOB/Cough/ Wheezing, NO dysphagia/odynophagia, (+) loss of appetite leading to significant weight loss (30 to 40 pounds) over the past few months (states that she will eat but mostly small amounts for her 3 meals a day), (+) LLQ Abdominal Pain that she feels like is always there but does not bother her unless when she urinates at which time if feels like a "pushing/pressure" like pain, NO n/v/d/c (she states that she normally has 3 soft bowel movements a day which has decreased from 5 bowel movements per day prior to her admission on 12/18/16; she has not noticed any black or bloody bowel movements; she has bowel continence), (+) Burning with urination (she states that this is present at all times; she has urinary continence), NO lightheadedness/dizziness, NO new changes in vision/ eye pain/loss of vision, NO new changes in hearing/ear pain/loss of hearing, NO headaches, (+) Paresthesias that are described as a numbness in the left hand fingers 4 and 5 that comes and goes every since Left Arm AV Fistula surgery back in the early 1999s, NO edema, (+) Weakness in the legs (states that this is what cause multiple falls in the past but reveals that because of the PT at [facility] she is now able to get up out of bed with assistance and use a walker). PMHx: Anemia, CKD (formerly on HD but not after receiving Right Kidney Transplant in 2004), HTN, DM 2 on insulin, HLD, HTN, Hx Falls, Diverticulitis, Recurrent UTIs PSHx: Bilateral Upper Arm AV Fistulas, , Right Kidney Transplant ( received HD for 4 to 5 years but then not after the translplant in 2004) ALL: Cefazolin, Iodine, Vancomycin all of which cause pruritus Medications: Vitamin A/D application topical Qshift, Tacrolimus 5 mg PO 2x/day, Prandin 0.5 mg AC, Tylenol 650 mg PO Q4H PRN Fever/Pain, Prednisone 5 mg PO 1x/ day, Novolog 1 to 7 units SC BID, Colace 100 mg PO Q12H PRN constipation, Mycophenolate 250 mg PO 2x/day, Sensipar 30 mg PO 1x/day, Norvasc 5 mg PO 1x/day , Bactrim DS Tab 1 tab PO MOWEFR 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, Currently living at [facility], NO tabacco, NO alcohol, NO illicit drugs Family Hx: Aunt (Asthma), Dad (Renal Failure), Brother x 2 (Healthy) Present on Admission - Present on Admission Any Indicators Present on Admission: Yes History of DVT/PE: No History of Uncontrolled Diabetes: No Urinary Catheter: No Decubitus Ulcer Present: Yes (Stage I Left Buttock Sacral Area) Decubitus Ulcer Stage: I Review of Systems - Review of Systems Review of Systems: Please see above Past Patient History - Infectious Disease Hx of Infectious Diseases: None - Past Medical History & Family History Past Medical History?: Yes Pertinent Family History: Please see HPI above - Past Social History Alcohol: None Drugs: Denies - CARDIAC Hx Hypercholesterolemia: Yes Hx Hypertension: Yes - PULMONARY Hx Respiratory Disorders: No - NEUROLOGICAL Hx Neurological Disorder: No - HEENT Hx HEENT Problems: No - RENAL Hx Chronic Kidney Disease: Yes (kidney transplant) - ENDOCRINE/METABOLIC Hx Endocrine Disorders: Yes - HEMATOLOGICAL/ONCOLOGICAL Hx Anemia: Yes - INTEGUMENTARY Hx Dermatological Problems: No - MUSCULOSKELETAL/RHEUMATOLOGICAL Hx Falls: Yes - GASTROINTESTINAL Hx Gastrointestinal Disorders: Yes Hx Colitis: Yes - GENITOURINARY/GYNECOLOGICAL Hx Genitourinary Disorders: Yes (UTI) Hx Urinary Tract Infection: Yes - PSYCHIATRIC Hx Psychophysiologic Disorder: No Hx Substance Use: No - SURGICAL HISTORY Hx Surgeries: Yes Hx Arteriovenous Shunt: Yes Hx Section: Yes Hx Vascular Access Device: Yes Other/Comment: RIGHT KIDNEY TRANSPLANT - ANESTHESIA Hx Anesthesia: Yes Hx Anesthesia Reactions: No Hx Malignant Hyperthermia: No Meds Allergies/Adverse Reactions: Allergies Allergy/AdvReac Type Severity Reaction Status Date / Time cefazolin Allergy ITCHING Verified 03/13/16 12:44 iodine Allergy ITCHING Verified 03/13/16 12:44 vancomycin Allergy ITCHING Verified 03/13/16 12:44 Physical Exam - Constitutional Appears: Non-toxic, No Acute Distress Additional comments: Patient is Cachectic - Head Exam Head Exam: ATRAUMATIC, NORMAL INSPECTION, NORMOCEPHALIC - Eye Exam Eye Exam: EOMI, Normal appearance, PERRL Pupil Exam: NORMAL ACCOMODATION, PERRL - ENT Exam ENT Exam: Mucous Membranes Moist, Normal Exam, Normal External Ear Exam, Normal Oropharynx - Neck Exam Neck exam: Positive for: Normal Inspection Additional comments: NO thyromegaly NO cervical/supraclavicular/submandibular lymphadenopathy - Respiratory Exam Respiratory Exam: Clear to Auscultation Bilateral, NORMAL BREATHING PATTERN Additional comments: CTA B/L NO R/R/W Chest X Ray shows NO active disease - Cardiovascular Exam Cardiovascular Exam: REGULAR RHYTHM, +S1, +S2 Additional comments: NS1 and NS2 NO M/R/G EKG shows NSR at 89 bpm - GI/Abdominal Exam Additional comments: BS x 4, Soft, ND, NO HSM, (+) LLQ tenderness to deep palpation but no guarding/ rebound tenderness - Extremities Exam Extremities exam: Positive for: normal inspection Additional comments: Pulses are strong and equal Capillary refill is 2 seconds NO edema - Neurological Exam Neurological exam: Alert, CN II-XII Intact, Oriented x3 - Skin Additional comments: Multiple areas of petichia/bruising present on the bilateral arms STAGE 1 ulcer Left Buttock/Sacral area. NO other ulcers noted on any of the noah prominences. This portion of the exam done with ER Sandwich Machine Operator Rosalinda Results - Vital Signs Recent Vital Signs: Last Vital Signs Temp 97.9 F 01/18/17 22:31 Pulse 72 01/18/17 22:31 Resp 18 01/18/17 22:31 BP 118/68 01/18/17 22:31 Pulse Ox 100 01/18/17 22:01 - Labs Result Diagrams: 01/18/17 18:00 01/18/17 18:00 Assessment & Plan (1) Diverticulitis Assessment and Plan: Admit to the Medical Surgical Unit CT Abdomen/Pelvis done today does NOT show any change in the Sigmoid Diverticulitis compared to 12/18/[address] Castillo: surgery needed at this time? Ciprofloxacin 400 mg IV Q12H Falgyl 500 mg IV Q8H D5 NS at 65 ml/hour Status: Acute (2) Hypercalcemia Assessment and Plan: Consult Endocrine Dr. Raina Rosado Status: Acute (3) Chronic anemia Assessment and Plan: S/P 2 units PRBC and Stool Occult Blood (+) upon last admission on 12/18/[address] Medina saw patient upon last admission and recommended Colonoscopy in 6 to 8 weeks Hematology/Oncology Dr. Lang Carrington also saw patient upon last admission and ordered SPEP 12/20/16 which was abnormal likely secondary to reactive process but plasma cell disorder could not be ruled out. Dr. Lang Carrington as been reconsulted for further recommendation concerning SPEP findings. HOLD anticoagulation for now. Status: Chronic (4) DM2 (diabetes mellitus, type 2) Assessment and Plan: HgBA1C was 7.3 on 12/18/16 Prandin 0.5 mg PO AC Low dose Regular Insulin Sliding Scale with Accuchecks 4x/day Status: Chronic (5) HTN (hypertension) Assessment and Plan: Norvasc 5 mg PO 1x/day Status: Chronic (6) HLD (hyperlipidemia) Assessment and Plan: NOT on a statin F/U Lipid Panel Status: Chronic (7) CKD (chronic kidney disease) Assessment and Plan: See details in HPI above Sensipar 30 mg PO 1x/day Speech And Language Assistant Dr. Glez has been consulted as patient will need to be cleared from nephrology standpoint for possible surgery for the Diverticulitis Status: Chronic (8) Chronic UTI Assessment and Plan: UA showed LE moderate F/U Urine Culture Bactrim DS M-W- Status: Chronic (9) Hypophosphatemia Assessment and Plan: Neutra-Phos 1 pkt PO 2x/day Monitor the Phos level and discontinue the Neutra Phos once normal Status: Acute (10) Hypomagnesemia Assessment and Plan: Mag Chloride (64 mg) 1 tab PO 1x/day Monitor the Magnesium level and discontinue the Mag Chloride once normal Status: Acute (11) Stage I pressure ulcer Assessment and Plan: Located on the Left Buttock/Sacral Area ProShield Skin Protectant Turn/reposition Patient Q2H Status: Acute (12) History of kidney transplant Assessment and Plan: History of Right Renal Transplant 2004 Tacrolimus 5mg PO 2x/day Prednisone 5 mg PO 1x/day Mycophenolate 250 mg PO 1x/day Status: Acute (13) Prophylactic measure Assessment and Plan: Protonix 40 mg PO 1x/day and Florastor 250 mg PO 2x/day for GI Prophylaxis NO anticoagulation for DVT Prophylaxis considering the Anemia as explained above. Therfore Bilateral Elijah Stockings PT/OT Colace 100 mg PO Q12H PRN Constipation Ensure Plus 3x/day and Dietary Consult considering the < 20 BMI Please note that the patient's son Tyrel Poon [phone] was updated at the patient's request. Kingston Awad requests that he continue to be updated by Medicine Team. Andrew Hernandez D.O. Status: Acute
[2017-01-19] MEDS ORDERED: metroNIDAZOLE 500mg/100ml NS 100 ML IVPB SCH (01:00)
[2017-01-19] MEDS: metroNIDAZOLE 500mg/100ml NS 100 ML IVPB SCH ×2 (05:40→22:54)
[2017-01-19] MEDS: Dextrose 5%/0.9% NS 1,000 ML IV SCH ×2 (06:10→22:10)
[2017-01-19] MEDS: Proshield Plus GEL TOP SCH ×2 (06:15→09:00)
[2017-01-19] MEDS: Insulin Regular 100 units/ml SC SCH ×3 (07:27→22:10)
[2017-01-19 07:36] LABS: BASO % 0.5 % (0.0-2.0); EOS % 0.5 % (0.0-4.0); HEMOGLOBIN 8.5 g/dL (12.0-16.0); LYMPH # 2.1 K/uL (1.0-4.3); LYMPH % 35.5 % (20.0-40.0); MEAN CELL VOLUME 85.2 fl (81.0-99.0); MEAN CORPUSCULAR HEMOGLOBIN 28.7 pg (27.0-31.0); MEAN CORPUSCULAR HGB CONC 33.7 g/dL (33.0-37.0); MEAN PLATELET VOLUME 7.3 fl (7.2-11.7); MONO # 0.5 K/uL (0.0-0.8); MONO % 8.6 % (0.0-10.0); NEUT # 3.3 K/uL (1.8-7.0); NEUT % 54.9 % (50.0-75.0); NRBC % 0.3 % (0.0-0.0); RBC 2.97 Mil/uL (3.80-5.20)
[2017-01-19 07:40] LABS: ALBUMIN 2.5 g/dL (3.5-5.0); ALT/SGPT 19 U/L (9-52); AST/SGOT 13 U/L (14-36); BLOOD UREA NITROGEN 16 mg/dl (7-17); CALCIUM 11.1 mg/dL (8.4-10.2); GFR AFRICAN-AMERICAN > 60; GFR NON-AFRICAN AMERICAN > 60; HDL CHOLESTEROL 42 MG/DL (30-70); MAGNESIUM 1.3 MG/DL (1.6-2.3)
[2017-01-19 07:51] LABS: LDL CHOLESTEROL 67 mg/dL (0-129)
[2017-01-19] MEDS: Saccharomyces Boulardi 250 mg Cap PO SCH (08:43)
[2017-01-19] MEDS: Ciprofloxacin 200mg/100ml D5W 100 ML IVPB SCH ×2 (08:43→21:50)
[2017-01-19] MEDS: Potassium & Sodium Phosphate PO SCH (08:44)
[2017-01-19] MEDS: SlowMag 1 TAB PO SCH (08:44)
[2017-01-19] MEDS: Pantoprazole 40 mg EC Tab PO SCH (08:45)
--- NOTE | 2017-01-19 08:53 | CP.PCM.PN ---
Subjective - Date & Time of Evaluation Date of Evaluation: 01/19/17 Time of Evaluation: 08:49 - Subjective Subjective: General Surgery: Dr Carter Pt S&E. BEATRIZEPetrona. Resting comfortably. Continues to have minimal pain, worse with defecation. Denies F/C, N/V, SOB or chest pain. States she is hungry Objective - Vital Signs/Intake and Output Vital Signs (last 24 hours): Temp Pulse Resp BP Pulse Ox 97.6 F 72 20 107/51 L 99 01/19/17 08:36 01/19/17 08:44 01/19/17 08:36 01/19/17 08:44 01/19/17 08:36 - Medications Medications: Current Medications Acetaminophen (Tylenol 325mg Tab) 650 mg PO Q4H PRN PRN Reason: Temp >100 Acetaminophen (Tylenol 325mg Tab) 650 mg PO Q4H PRN PRN Reason: Pain, Mild (1-3) Amlodipine Besylate (Norvasc) 5 mg PO DAILY [facility] Last Admin: 01/19/17 08:44 Dose: 5 mg Cinacalcet (Sensipar) 30 mg PO DAILY [facility] Last Admin: 01/19/17 08:45 Dose: 30 mg Dimethicone (Proshield Plus Skin Protectant) 1 applic TOP Q8 [facility] Last Admin: 01/19/17 06:15 Dose: 1 applic Docusate Sodium (Colace) 100 mg PO Q12H PRN PRN Reason: Constipation Ciprofloxacin (Cipro 200mg/100ml D5w) 100 mls @ 100 mls/hr IVPB Q12 [facility] Last Admin: 01/19/17 08:43 Dose: 100 mls/hr Metronidazole (Flagyl 500mg/100ml Ns) 100 mls @ 100 mls/hr IVPB Q8@0600,1400, 2200 [facility] Last Admin: 01/19/17 05:40 Dose: 100 mls/hr Dextrose/Sodium Chloride (Dextrose 5%/0.9% Ns 1000 Ml) 1,000 mls @ 65 mls/hr IV .[id number] [facility] Stop: 01/20/17 06:05 Last Admin: 01/19/17 06:10 Dose: 65 mls/hr Insulin Human Regular (Humulin R) 0 units SC ACHS [facility] PRN Reason: Protocol Last Admin: 01/19/17 07:27 Dose: Not Given Magnesium Chloride (Mag Delay 64mg) 1 tab PO DAILY [facility] Last Admin: 01/19/17 08:44 Dose: 1 tab Mycophenolate Mofetil (Cellcept Cap) 250 mg PO BID [facility] Last Admin: 01/19/17 08:43 Dose: 250 mg Pantoprazole Sodium (Protonix Ec Tab) 40 mg PO DAILY [facility] Last Admin: 01/19/17 08:45 Dose: 40 mg Potassium Phos/Sodium Phos (Neutra-Phos) 1 pkt PO BID [facility] Last Admin: 01/19/17 08:44 Dose: 1 pkt Prednisone (Prednisone Tab) 5 mg PO DAILY [facility] Last Admin: 01/19/17 08:45 Dose: 5 mg Repaglinide (Prandin) 0.5 mg PO AC [facility] Last Admin: 01/19/17 08:39 Dose: Not Given Saccharomyces Boulardii (Florastor) 250 mg PO BID [facility] Last Admin: 01/19/17 08:43 Dose: 250 mg Tacrolimus (Prograf Cap) 5 mg PO BID [facility] Last Admin: 01/19/17 08:45 Dose: 5 mg Trimethoprim/Sulfamethoxazole (Bactrim Ds Tab) 1 tab PO MOWEFR [facility] Vitamin A (Vitamin A&D) 1 applic TP QSHIFT [facility] - Labs Labs: 01/19/17 05:30 01/19/17 05:30 PT 11.5 Seconds (9.8-13.1) 01/18/17 18:00 INR 1.0 (0.9-1.2) 01/18/17 18:00 APTT 26.5 Seconds (25.6-37.1) 01/18/17 18:00 - Constitutional Appears: Non-toxic, No Acute Distress, Cachectic - Respiratory Exam Respiratory Exam: absent: Accessory Muscle Use, Respiratory Distress - Cardiovascular Exam Cardiovascular Exam: REGULAR RHYTHM - GI/Abdominal Exam GI & Abdominal Exam: Soft, Tenderness (LLQ). absent: Distended, Firm, Guarding , Rigid, Hernia, Mass - Neurological Exam Neurological Exam: Alert, Awake, Oriented x3 - Psychiatric Exam Psychiatric exam: Normal Affect, Normal Mood - Skin Skin Exam: Normal Color, Warm Assessment and Plan - Assessment and Plan (Free Text) Assessment: 61F admitted for recurrent colitis Plan: cont IV abx wbc and hgb likely reduced after hydration maintain NPO until further recs from attending will d/w Dr Raul Barrera, PGY3
[2017-01-19] MEDS ORDERED: CIPROFLOXACIN 200 MG/100 ML IVPB ONE (09:00)
[2017-01-19] MEDS ORDERED: metroNIDAZOLE 500mg/100ml NS IVPB ONE (09:00)
[2017-01-19] MEDS ORDERED: Proshield Plus GEL TOP ONE (09:00)
[2017-01-19] MEDS ORDERED: TACROLIMUS 5 MG PO SCH (09:00)
[2017-01-19] MEDS ORDERED: Potassium & Sodium Phosphate ONE (09:00)
[2017-01-19] MEDS ORDERED: D5W IVPB ONE (09:00)
[2017-01-19] MEDS ORDERED: Saccharomyces Boulardi 250 mg Cap ONE (09:00)
[2017-01-20] MEDS: Proshield Plus GEL TOP SCH ×3 (02:12→16:17)
--- NOTE | 2017-01-20 02:44 | CP.PCM.CON ---
History of Present Illness - History of Present Illness History of Present Illness: 61 year old female with a history of HTN, DM, kidney transplant, progressive debility and abdominal pain, diverticulitis, admitted from the sn[facility] with abnormal labs. The patient is known to me from her prior admission last month where she was evaluated for anemia. She has The patient reports to progressive fatigue and weightloss of about 80 pounds over the last year. She has been experiencing increasing abdominal pain for several months with diminished appetite. She notes when she does have a bowel movement she sees blood in the toilet bowl. Past medical history: HTN, DM Past surgical history: Kidney transplant, Family history: Denies tobacco, alcohol, and illicit drug use. Social history: Denies tobacco, alcohol, and illicit drug use. Allergies: Vancomycin, cefazolin, iodine Review of systems: All remaining review of systems including HEENT, cardiovascular, respiratory, gastrointestinal, gentitourinary, musculoskeletal, dermatologic, neurologic, and psychiatric are negative unless mentioned in the HPI. Past Patient History - Infectious Disease Hx of Infectious Diseases: None - Past Medical History & Family History Past Medical History?: Yes - Past Social History Alcohol: None Drugs: Denies - CARDIAC Hx Hypercholesterolemia: Yes Hx Hypertension: Yes - PULMONARY Hx Respiratory Disorders: No - NEUROLOGICAL Hx Neurological Disorder: No - HEENT Hx HEENT Problems: No - RENAL Hx Chronic Kidney Disease: Yes (kidney transplant) - ENDOCRINE/METABOLIC Hx Endocrine Disorders: Yes - HEMATOLOGICAL/ONCOLOGICAL Hx Anemia: Yes - INTEGUMENTARY Hx Dermatological Problems: No - MUSCULOSKELETAL/RHEUMATOLOGICAL Hx Falls: Yes - GASTROINTESTINAL Hx Gastrointestinal Disorders: Yes Hx Colitis: Yes - GENITOURINARY/GYNECOLOGICAL Hx Genitourinary Disorders: Yes (UTI) Hx Urinary Tract Infection: Yes - PSYCHIATRIC Hx Psychophysiologic Disorder: No Hx Substance Use: No - SURGICAL HISTORY Hx Surgeries: Yes Hx Arteriovenous Shunt: Yes Hx Section: Yes Hx Vascular Access Device: Yes Other/Comment: RIGHT KIDNEY TRANSPLANT - ANESTHESIA Hx Anesthesia: Yes Hx Anesthesia Reactions: No Hx Malignant Hyperthermia: No Meds Allergies/Adverse Reactions: Allergies Allergy/AdvReac Type Severity Reaction Status Date / Time cefazolin Allergy ITCHING Verified 03/13/16 12:44 iodine Allergy ITCHING Verified 03/13/16 12:44 vancomycin Allergy ITCHING Verified 03/13/16 12:44 - Medications Medications: Current Medications Acetaminophen (Tylenol 325mg Tab) 650 mg PO Q4H PRN PRN Reason: Temp >100 Acetaminophen (Tylenol 325mg Tab) 650 mg PO Q4H PRN PRN Reason: Pain, Mild (1-3) Amlodipine Besylate (Norvasc) 5 mg PO DAILY [facility] Last Admin: 01/19/17 08:44 Dose: 5 mg Cinacalcet (Sensipar) 30 mg PO DAILY [facility] Last Admin: 01/19/17 08:45 Dose: 30 mg Dimethicone (Proshield Plus Skin Protectant) 1 applic TOP Q8 [facility] Last Admin: 01/20/17 02:12 Dose: 1 applic Docusate Sodium (Colace) 100 mg PO Q12H PRN PRN Reason: Constipation Ciprofloxacin (Cipro 200mg/100ml D5w) 100 mls @ 100 mls/hr IVPB Q12 [facility] Last Admin: 01/19/17 21:50 Dose: 100 mls/hr Metronidazole (Flagyl 500mg/100ml Ns) 100 mls @ 100 mls/hr IVPB Q8@0600,1400, 2200 [facility] Last Admin: 01/19/17 22:54 Dose: 100 mls/hr Dextrose/Sodium Chloride (Dextrose 5%/0.9% Ns 1000 Ml) 1,000 mls @ 65 mls/hr IV .[id number] [facility] Stop: 01/20/17 06:05 Last Admin: 01/19/17 22:10 Dose: Not Given Insulin Human Regular (Humulin R) 0 units SC ACHS [facility] PRN Reason: Protocol Last Admin: 01/19/17 22:10 Dose: Not Given Magnesium Chloride (Mag Delay 64mg) 1 tab PO DAILY [facility] Last Admin: 01/19/17 08:44 Dose: 1 tab Mycophenolate Mofetil (Cellcept Cap) 250 mg PO BID [facility] Last Admin: 01/19/17 08:43 Dose: 250 mg Pantoprazole Sodium (Protonix Ec Tab) 40 mg PO DAILY [facility] Last Admin: 01/19/17 08:45 Dose: 40 mg Potassium Phos/Sodium Phos (Neutra-Phos) 1 pkt PO BID [facility] Last Admin: 01/19/17 08:44 Dose: 1 pkt Prednisone (Prednisone Tab) 5 mg PO DAILY [facility] Last Admin: 01/19/17 08:45 Dose: 5 mg Repaglinide (Prandin) 0.5 mg PO AC [facility] Last Admin: 01/19/17 12:35 Dose: Not Given Saccharomyces Boulardii (Florastor) 250 mg PO BID [facility] Last Admin: 01/19/17 08:43 Dose: 250 mg Tacrolimus (Prograf Cap) 5 mg PO BID [facility] Last Admin: 01/19/17 08:45 Dose: 5 mg Trimethoprim/Sulfamethoxazole (Bactrim Ds Tab) 1 tab PO MOWEFR [facility] Vitamin A (Vitamin A&D) 1 applic TP QSHIFT [facility] Physical Exam - Head Exam Head Exam: ATRAUMATIC - Eye Exam Eye Exam: Normal appearance - ENT Exam ENT Exam: Mucous Membranes Dry - Respiratory Exam Respiratory Exam: NORMAL BREATHING PATTERN - Cardiovascular Exam Cardiovascular Exam: +S1, +S2 - GI/Abdominal Exam GI & Abdominal Exam: Normal Bowel Sounds - Extremities Exam Extremities exam: Positive for: normal inspection - Neurological Exam Neurological exam: Oriented x3 - Psychiatric Exam Psychiatric exam: Normal Affect, Normal Mood - Skin Skin Exam: Warm Results - Vital Signs Recent Vital Signs: Last Vital Signs Temp 98.3 F 01/20/17 00:51 Pulse 71 01/20/17 00:51 Resp 18 01/20/17 00:51 BP 131/73 01/20/17 00:51 Pulse Ox 98 01/20/17 00:51 - Labs Result Diagrams: 01/19/17 05:30 01/19/17 05:30 Labs: Laboratory Results - last 24 hr 01/18/17 01/19/17 01/19/17 22:44 05:30 05:30 WBC 6.0 D RBC 2.97 L Hgb 8.5 L Hct 25.3 L MCV 85.2 MCH 28.7 MCHC 33.7 RDW 17.0 H Plt Count 265 MPV 7.3 Neut % (Auto) 54.9 Lymph % (Auto) 35.5 [place] % (Auto) 8.6 Eos % (Auto) 0.5 Baso % (Auto) 0.5 Neut # 3.3 Lymph # 2.1 [place] # 0.5 Eos # 0.0 Baso # 0.0 Sodium 136 Potassium 4.1 Chloride 108 H Carbon Dioxide 24 Anion Gap 8 L BUN 16 Creatinine 0.9 Est GFR ( Amer) > 60 Est GFR (Non-Af Amer) > 60 POC Glucose (mg/dL) 151 H Random Glucose 77 Calcium 11.1 H Phosphorus 2.4 L Magnesium 1.3 L Total Bilirubin 0.2 AST 13 L D ALT 19 Alkaline Phosphatase 57 Total Protein 5.0 L Albumin 2.5 L Globulin 2.5 Albumin/Globulin Ratio 1.0 Triglycerides 154 H Cholesterol 150 LDL Cholesterol Direct 67 HDL Cholesterol 42 Thyroxine (T4) 6.30 TSH 3rd Generation 0.39 L 01/19/17 01/19/17 01/19/17 05:59 11:10 17:05 WBC RBC Hgb Hct MCV MCH MCHC RDW Plt Count MPV Neut % (Auto) Lymph % (Auto) [place] % (Auto) Eos % (Auto) Baso % (Auto) Neut # Lymph # [place] # Eos # Baso # Sodium Potassium Chloride Carbon Dioxide Anion Gap BUN Creatinine Est GFR ( Amer) Est GFR (Non-Af Amer) POC Glucose (mg/dL) 61 L 93 102 Random Glucose Calcium Phosphorus Magnesium Total Bilirubin AST ALT Alkaline Phosphatase Total Protein Albumin Globulin Albumin/Globulin Ratio Triglycerides Cholesterol LDL Cholesterol Direct HDL Cholesterol Thyroxine (T4) TSH 3rd Generation 01/19/17 21:18 WBC RBC Hgb Hct MCV MCH MCHC RDW Plt Count MPV Neut % (Auto) Lymph % (Auto) [place] % (Auto) Eos % (Auto) Baso % (Auto) Neut # Lymph # [place] # Eos # Baso # Sodium Potassium Chloride Carbon Dioxide Anion Gap BUN Creatinine Est GFR ( Amer) Est GFR (Non-Af Amer) POC Glucose (mg/dL) 91 Random Glucose Calcium Phosphorus Magnesium Total Bilirubin AST ALT Alkaline Phosphatase Total Protein Albumin Globulin Albumin/Globulin Ratio Triglycerides Cholesterol LDL Cholesterol Direct HDL Cholesterol Thyroxine (T4) TSH 3rd Generation Assessment & Plan (1) Anemia Assessment and Plan: prior work up consistent with anemia of chronic disease likely element of bone marrow suppression from immunosuppression. 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 Status: Acute
[2017-01-20] MEDS: Dextrose 5%/0.9% NS 1,000 ML IV SCH (03:36)
[2017-01-20] MEDS: metroNIDAZOLE 500mg/100ml NS 100 ML IVPB SCH ×3 (06:22→23:22)
[2017-01-20] MEDS: Insulin Regular 100 units/ml SC SCH ×4 (06:45→22:09)
--- NOTE | 2017-01-20 08:31 | CP.PCM.PN ---
Subjective - Date & Time of Evaluation Date of Evaluation: 01/20/17 Time of Evaluation: 06:10 - Subjective Subjective: SURGERY NOTE FOR DR. MOORE 61F seen and examined at bedside. Patient states pain is resolved. Denies nausea , vomiting, diarrhea. She is tolerating her liquid diet. Objective - Vital Signs/Intake and Output Vital Signs (last 24 hours): Temp Pulse Resp BP Pulse Ox 97.9 F 70 20 121/53 L 99 01/20/17 08:24 01/20/17 08:24 01/20/17 08:24 01/20/17 08:24 01/20/17 08:24 - Medications Medications: Current Medications Acetaminophen (Tylenol 325mg Tab) 650 mg PO Q4H PRN PRN Reason: Temp >100 Acetaminophen (Tylenol 325mg Tab) 650 mg PO Q4H PRN PRN Reason: Pain, Mild (1-3) Amlodipine Besylate (Norvasc) 5 mg PO DAILY [facility] Last Admin: 01/19/17 08:44 Dose: 5 mg Cinacalcet (Sensipar) 30 mg PO DAILY [facility] Last Admin: 01/19/17 08:45 Dose: 30 mg Dimethicone (Proshield Plus Skin Protectant) 1 applic TOP Q8 [facility] Last Admin: 01/20/17 02:12 Dose: 1 applic Docusate Sodium (Colace) 100 mg PO Q12H PRN PRN Reason: Constipation Ciprofloxacin (Cipro 200mg/100ml D5w) 100 mls @ 100 mls/hr IVPB Q12 [facility] Last Admin: 01/19/17 21:50 Dose: 100 mls/hr Metronidazole (Flagyl 500mg/100ml Ns) 100 mls @ 100 mls/hr IVPB Q8@0600,1400, 2200 [facility] Last Admin: 01/20/17 06:22 Dose: 100 mls/hr Insulin Human Regular (Humulin R) 0 units SC ACHS [facility] PRN Reason: Protocol Last Admin: 01/20/17 06:45 Dose: Not Given Magnesium Chloride (Mag Delay 64mg) 1 tab PO DAILY [facility] Last Admin: 01/19/17 08:44 Dose: 1 tab Mycophenolate Mofetil (Cellcept Cap) 250 mg PO BID [facility] Last Admin: 01/19/17 08:43 Dose: 250 mg Pantoprazole Sodium (Protonix Ec Tab) 40 mg PO DAILY [facility] Last Admin: 01/19/17 08:45 Dose: 40 mg Potassium Phos/Sodium Phos (Neutra-Phos) 1 pkt PO BID [facility] Last Admin: 01/19/17 08:44 Dose: 1 pkt Prednisone (Prednisone Tab) 5 mg PO DAILY [facility] Last Admin: 01/19/17 08:45 Dose: 5 mg Repaglinide (Prandin) 0.5 mg PO AC [facility] Last Admin: 01/19/17 12:35 Dose: Not Given Saccharomyces Boulardii (Florastor) 250 mg PO BID [facility] Last Admin: 01/19/17 08:43 Dose: 250 mg Tacrolimus (Prograf Cap) 5 mg PO BID [facility] Last Admin: 01/19/17 08:45 Dose: 5 mg Trimethoprim/Sulfamethoxazole (Bactrim Ds Tab) 1 tab PO MOWEFR [facility] Vitamin A (Vitamin A&D) 1 applic TP QSHIFT [facility] - Labs Labs: 01/19/17 05:30 01/19/17 05:30 PT 11.5 Seconds (9.8-13.1) 01/18/17 18:00 INR 1.0 (0.9-1.2) 01/18/17 18:00 APTT 26.5 Seconds (25.6-37.1) 01/18/17 18:00 - Constitutional Appears: Non-toxic, No Acute Distress - Respiratory Exam Respiratory Exam: Clear to Ausculation Bilateral, NORMAL BREATHING PATTERN - Cardiovascular Exam Cardiovascular Exam: REGULAR RHYTHM, +S1, +S2 - GI/Abdominal Exam GI & Abdominal Exam: Soft. absent: Distended, Firm, Guarding, Rigid, Tenderness , Rebound - Neurological Exam Neurological Exam: Alert, Awake - Psychiatric Exam Psychiatric exam: Normal Affect, Normal Mood - Skin Skin Exam: Dry, Intact, Normal Color, Warm Assessment and Plan - Assessment and Plan (Free Text) Assessment: 61F presents with recurrent colitis - continue medical management - IVF, Abx - currently on liquid diet till further notice Further recs discuss with Dr. Raul Zhu, PGY1
[2017-01-20] MEDS: Saccharomyces Boulardi 250 mg Cap PO SCH ×2 (09:13→16:14)
[2017-01-20] MEDS: Pantoprazole 40 mg EC Tab PO SCH (09:15)
[2017-01-20] MEDS: Potassium & Sodium Phosphate PO SCH ×2 (09:16→16:16)
[2017-01-20] MEDS: SlowMag 1 TAB PO SCH (09:16)
[2017-01-20] MEDS: Ciprofloxacin 200mg/100ml D5W 100 ML IVPB SCH ×2 (09:17→22:06)
[2017-01-20 10:32] LABS: HEMOGLOBIN 10.2 g/dL (12.0-16.0); MEAN CELL VOLUME 85.6 fl (81.0-99.0); MEAN CORPUSCULAR HEMOGLOBIN 28.1 pg (27.0-31.0); MEAN CORPUSCULAR HGB CONC 32.9 g/dL (33.0-37.0); RBC 3.64 Mil/uL (3.80-5.20); RED CELL DISTRIBUTION WIDTH 17.5 % (11.5-14.5); WHITE BLOOD COUNT 7.1 K/uL (4.8-10.8)
[2017-01-20 10:44] LABS: BLOOD UREA NITROGEN 11 mg/dl (7-17); CALCIUM 11.6 mg/dL (8.4-10.2); GFR AFRICAN-AMERICAN > 60; GFR NON-AFRICAN AMERICAN > 60; MAGNESIUM 1.2 MG/DL (1.6-2.3)
--- NOTE | 2017-01-20 11:23 | CP.PCM.PN ---
Subjective - Date & Time of Evaluation Date of Evaluation: 01/20/17 Time of Evaluation: 11:00 - Subjective Subjective: No fever has sl abd pain soft stool this am vomited testerday however tolerated PO diet this am no CP no SOB Objective - Vital Signs/Intake and Output Vital Signs (last 24 hours): Temp Pulse Resp BP Pulse Ox 97.9 F 70 20 121/58 L 99 01/20/17 08:24 01/20/17 08:24 01/20/17 08:24 01/20/17 09:12 01/20/17 08:24 - Medications Medications: Current Medications Acetaminophen (Tylenol 325mg Tab) 650 mg PO Q4H PRN PRN Reason: Temp >100 Acetaminophen (Tylenol 325mg Tab) 650 mg PO Q4H PRN PRN Reason: Pain, Mild (1-3) Amlodipine Besylate (Norvasc) 5 mg PO DAILY [facility] Last Admin: 01/20/17 09:12 Dose: 5 mg Cinacalcet (Sensipar) 30 mg PO DAILY [facility] Last Admin: 01/20/17 09:12 Dose: 30 mg Dimethicone (Proshield Plus Skin Protectant) 1 applic TOP Q8 [facility] Last Admin: 01/20/17 09:15 Dose: 1 applic Docusate Sodium (Colace) 100 mg PO Q12H PRN PRN Reason: Constipation Ciprofloxacin (Cipro 200mg/100ml D5w) 100 mls @ 100 mls/hr IVPB Q12 [facility] Last Admin: 01/20/17 09:17 Dose: 100 mls/hr Metronidazole (Flagyl 500mg/100ml Ns) 100 mls @ 100 mls/hr IVPB Q8@0600,1400, 2200 [facility] Last Admin: 01/20/17 06:22 Dose: 100 mls/hr Magnesium Sulfate (Magnesium Sulfate 4 Gm/100 Ml H2o) 4 gm in 100 mls @ 50 mls/ hr IVPB ONCE ONE PRN Reason: 2 GM/HR Stop: 01/20/17 13:29 Insulin Human Regular (Humulin R) 0 units SC ACHS [facility] PRN Reason: Protocol Last Admin: 01/20/17 06:45 Dose: Not Given Magnesium Chloride (Mag Delay 64mg) 1 tab PO DAILY [facility] Last Admin: 01/20/17 09:16 Dose: 1 tab Mycophenolate Mofetil (Cellcept Cap) 250 mg PO BID [facility] Last Admin: 01/20/17 09:14 Dose: 250 mg Pantoprazole Sodium (Protonix Ec Tab) 40 mg PO DAILY [facility] Last Admin: 01/20/17 09:15 Dose: 40 mg Potassium Phos/Sodium Phos (Neutra-Phos) 1 pkt PO BID [facility] Last Admin: 01/20/17 09:16 Dose: 1 pkt Prednisone (Prednisone Tab) 5 mg PO DAILY [facility] Last Admin: 01/20/17 09:11 Dose: 5 mg Repaglinide (Prandin) 0.5 mg PO AC [facility] Last Admin: 01/20/17 09:14 Dose: 0.5 mg Saccharomyces Boulardii (Florastor) 250 mg PO BID [facility] Last Admin: 01/20/17 09:13 Dose: 250 mg Tacrolimus (Prograf Cap) 5 mg PO BID [facility] Last Admin: 01/20/17 09:11 Dose: 5 mg Trimethoprim/Sulfamethoxazole (Bactrim Ds Tab) 1 tab PO MOWEFR [facility] Vitamin A (Vitamin A&D) 1 applic TP QSHIFT [facility] - Labs Labs: 01/20/17 09:30 01/20/17 09:30 PT 11.5 Seconds (9.8-13.1) 01/18/17 18:00 INR 1.0 (0.9-1.2) 01/18/17 18:00 APTT 26.5 Seconds (25.6-37.1) 01/18/17 18:00 - Constitutional Appears: No Acute Distress - Head Exam Head Exam: NORMAL INSPECTION, NORMOCEPHALIC - Eye Exam Eye Exam: EOMI, Normal appearance Pupil Exam: NORMAL ACCOMODATION - ENT Exam ENT Exam: Mucous Membranes Moist, Normal External Ear Exam - Neck Exam Neck Exam: Full ROM. absent: Meningismus - Respiratory Exam Respiratory Exam: NORMAL BREATHING PATTERN. absent: Respiratory Distress - Cardiovascular Exam Cardiovascular Exam: REGULAR RHYTHM, +S1, +S2 - GI/Abdominal Exam GI & Abdominal Exam: Soft, Tenderness (minimal diffuse tenderness), Normal Bowel Sounds - Extremities Exam Extremities Exam: Full ROM, Normal Capillary Refill. absent: Pedal Edema - Back Exam Back Exam: absent: CVA tenderness (L), CVA tenderness (R), vertebral tenderness - Neurological Exam Neurological Exam: Alert, Awake, CN II-XII Intact Additional comments: orineted to person and place - Psychiatric Exam Psychiatric exam: Normal Affect, Normal Mood - Skin Skin Exam: Dry, Normal Color, Warm Assessment and Plan - Assessment and Plan (Free Text) Assessment: 61 year old female who presents from [facility] with a chief complaint of abnormal labs. Patient states that she was told that she had abn labs. Pt complains of some LLQ pain and her WBC ct was elevated. CT of abd: Sigmoid colitis with a giant diverticula/pseudodiverticula, unchanged; mild perisigmoid inflammation; probable fibroid uterus; atrophic [place] kidneys with transplanted kidney in the right iliac fossa, unchanged; extensive atherosclerotic disease; gallstones (1) Diverticulitis/Colitis IV abx - pt was started on IV Ciprtor and Flagyl Surgery consulted- no surgical intervention - ff up as outpt (2) Hypercalcemia r/o Hyperparathyroidism IVF hydration Consult Endocrine Dr. Raina Wellington PTH level (3) Chronic anemia S/P 2 units PRBC and Stool Occult Blood (+) upon last admission on 12/18/[address] Medina saw patient upon last admission and recommended Colonoscopy in 6 to 8 weeks Hematology/Oncology Dr. Lang Carrington also saw patient upon last admission and ordered SPEP 12/20/16 Dr. Lang Carrington as been reconsulted for further recommendation concerning SPEP findings. HOLD anticoagulation for now. (4) DM2 (diabetes mellitus, type 2) HgBA1C was 7.3 on 12/18/16 Prandin 0.5 mg PO AC Low dose Regular Insulin Sliding Scale with Accuchecks 4x/day (5) HTN (hypertension) Norvasc 5 mg PO 1x/day (6) CKD (chronic kidney disease) hx of renal transplant Sensipar 30 mg PO 1x/day [employer] Dr. Glez (7) History of kidney transplant History of Right Renal Transplant 2004 Tacrolimus 5mg PO 2x/day Prednisone 5 mg PO 1x/day Mycophenolate 250 mg PO 1x/day Status: Acute (8) Chronic UTI UA showed LE moderate Urine Culture: E coli ESBL empiric Meropenem for now ID consult : Dr Yee (9) Hypophosphatemia Neutra-Phos 1 pkt PO (10) Hypomagnesemia Mg So4 IV (11) Stage I pressure ulcer Located on the Left Buttock/Sacral Area ProShield Skin Protectant Turn/reposition Patient Q2H Prophylactic measure NO anticoagulation for DVT Prophylaxis considering the Anemia SCD
[2017-01-20] MEDS ORDERED: Magnesium Sulfate 4 gm/100 ml 4 GM/100 ML BAG IVPB ONE (11:30)
[2017-01-20] MEDS ORDERED: Magnesium Sulfate 2 gm/50 ml 2 GM/50 ML BAG IVPB ONE (13:15)
--- NOTE | 2017-01-20 16:18 | CP.PCM.PN ---
Subjective - Date & Time of Evaluation Date of Evaluation: 01/20/17 Time of Evaluation: 12:00 - Subjective Subjective: MEDITECH was down - please see paper chart for progress note Objective - Vital Signs/Intake and Output Vital Signs (last 24 hours): Temp Pulse Resp BP Pulse Ox 97.6 F 72 20 107/51 L 99 01/19/17 09:00 01/19/17 08:44 01/19/17 08:36 01/19/17 08:44 01/19/17 08:36 - Medications Medications: Current Medications Acetaminophen (Tylenol 325mg Tab) 650 mg PO Q4H PRN PRN Reason: Temp >100 Acetaminophen (Tylenol 325mg Tab) 650 mg PO Q4H PRN PRN Reason: Pain, Mild (1-3) Amlodipine Besylate (Norvasc) 5 mg PO DAILY [facility] Last Admin: 01/19/17 08:44 Dose: 5 mg Cinacalcet (Sensipar) 30 mg PO DAILY [facility] Last Admin: 01/19/17 08:45 Dose: 30 mg Dimethicone (Proshield Plus Skin Protectant) 1 applic TOP Q8 [facility] Last Admin: 01/19/17 09:00 Dose: 1 applic Docusate Sodium (Colace) 100 mg PO Q12H PRN PRN Reason: Constipation Ciprofloxacin (Cipro 200mg/100ml D5w) 100 mls @ 100 mls/hr IVPB Q12 [facility] Last Admin: 01/19/17 08:43 Dose: 100 mls/hr Metronidazole (Flagyl 500mg/100ml Ns) 100 mls @ 100 mls/hr IVPB Q8@0600,1400, 2200 [facility] Last Admin: 01/19/17 05:40 Dose: 100 mls/hr Dextrose/Sodium Chloride (Dextrose 5%/0.9% Ns 1000 Ml) 1,000 mls @ 65 mls/hr IV [id number] [facility] Stop: 01/20/17 06:05 Last Admin: 01/19/17 06:10 Dose: 65 mls/hr Insulin Human Regular (Humulin R) 0 units SC ACHS [facility] PRN Reason: Protocol Last Admin: 01/19/17 12:34 Dose: Not Given Magnesium Chloride (Mag Delay 64mg) 1 tab PO DAILY [facility] Last Admin: 01/19/17 08:44 Dose: 1 tab Mycophenolate Mofetil (Cellcept Cap) 250 mg PO BID [facility] Last Admin: 01/19/17 08:43 Dose: 250 mg Pantoprazole Sodium (Protonix Ec Tab) 40 mg PO DAILY [facility] Last Admin: 01/19/17 08:45 Dose: 40 mg Potassium Phos/Sodium Phos (Neutra-Phos) 1 pkt PO BID [facility] Last Admin: 01/19/17 08:44 Dose: 1 pkt Prednisone (Prednisone Tab) 5 mg PO DAILY [facility] Last Admin: 01/19/17 08:45 Dose: 5 mg Repaglinide (Prandin) 0.5 mg PO AC [facility] Last Admin: 01/19/17 12:35 Dose: Not Given Saccharomyces Boulardii (Florastor) 250 mg PO BID [facility] Last Admin: 01/19/17 08:43 Dose: 250 mg Tacrolimus (Prograf Cap) 5 mg PO BID [facility] Last Admin: 01/19/17 08:45 Dose: 5 mg Trimethoprim/Sulfamethoxazole (Bactrim Ds Tab) 1 tab PO MOWEFR [facility] Vitamin A (Vitamin A&D) 1 applic TP QSHIFT [facility] - Labs Labs: 01/19/17 05:30 01/19/17 05:30 PT 11.5 Seconds (9.8-13.1) 01/18/17 18:00 INR 1.0 (0.9-1.2) 01/18/17 18:00 APTT 26.5 Seconds (25.6-37.1) 01/18/17 18:00
[2017-01-20] MEDS ORDERED: Meropenem 500 MG in Sodium Chloride 0.9% 100 ML IVPB SCH (17:00)
[2017-01-20] MEDS: Meropenem 500 MG in Sodium Chloride 0.9% 100 ML IVPB SCH (20:52)
[2017-01-21] MEDS ORDERED: Tmp-Smz 800 mg-160 mg DS Tab PO SCH (00:02)
[2017-01-21] MEDS: Proshield Plus GEL TOP SCH ×3 (00:58→16:46)
--- NOTE | 2017-01-21 01:10 | CP.PCM.PN ---
Subjective - Date & Time of Evaluation Date of Evaluation: 01/20/17 Time of Evaluation: 17:15 - Subjective Subjective: Has some abdominal pain, tolerated PO today Objective - Vital Signs/Intake and Output Vital Signs (last 24 hours): Temp Pulse Resp BP Pulse Ox 98.7 F 78 20 133/70 98 01/21/17 00:04 01/21/17 00:04 01/21/17 00:04 01/21/17 00:04 01/21/17 00:04 - Medications Medications: Current Medications Acetaminophen (Tylenol 325mg Tab) 650 mg PO Q4H PRN PRN Reason: Temp >100 Acetaminophen (Tylenol 325mg Tab) 650 mg PO Q4H PRN PRN Reason: Pain, Mild (1-3) Amlodipine Besylate (Norvasc) 5 mg PO DAILY [facility] Last Admin: 01/20/17 09:12 Dose: 5 mg Cinacalcet (Sensipar) 30 mg PO DAILY [facility] Last Admin: 01/20/17 09:12 Dose: 30 mg Dimethicone (Proshield Plus Skin Protectant) 1 applic TOP Q8 [facility] Last Admin: 01/21/17 00:58 Dose: 1 applic Docusate Sodium (Colace) 100 mg PO Q12H PRN PRN Reason: Constipation Ciprofloxacin (Cipro 200mg/100ml D5w) 100 mls @ 100 mls/hr IVPB Q12 [facility] Last Admin: 01/20/17 22:06 Dose: 100 mls/hr Metronidazole (Flagyl 500mg/100ml Ns) 100 mls @ 100 mls/hr IVPB Q8@0600,1400, 2200 [facility] Last Admin: 01/20/17 23:22 Dose: 100 mls/hr Meropenem 500 mg/ Sodium (Chloride) 100 mls @ 100 mls/hr IVPB Q12 [facility] Last Admin: 01/20/17 20:52 Dose: 100 mls/hr Insulin Human Regular (Humulin R) 0 units SC ACHS [facility] PRN Reason: Protocol Last Admin: 01/20/17 22:09 Dose: Not Given Magnesium Chloride (Mag Delay 64mg) 1 tab PO DAILY [facility] Last Admin: 01/20/17 09:16 Dose: 1 tab Mycophenolate Mofetil (Cellcept Cap) 250 mg PO BID [facility] Last Admin: 07/02/17 16:14 Dose: 250 mg Pantoprazole Sodium (Protonix Ec Tab) 40 mg PO DAILY [facility] Last Admin: 01/20/17 09:15 Dose: 40 mg Prednisone (Prednisone Tab) 5 mg PO DAILY [facility] Last Admin: 01/20/17 09:11 Dose: 5 mg Repaglinide (Prandin) 0.5 mg PO AC [facility] Last Admin: 01/20/17 16:11 Dose: 0.5 mg Saccharomyces Boulardii (Florastor) 250 mg PO BID [facility] Last Admin: 01/20/17 16:14 Dose: 250 mg Tacrolimus (Prograf Cap) 5 mg PO BID [facility] Last Admin: 01/20/17 16:17 Dose: 5 mg Trimethoprim/Sulfamethoxazole (Bactrim Ds Tab) 1 tab PO MOWEFR [facility] Last Admin: 01/21/17 00:58 Dose: 1 tab Vitamin A (Vitamin A&D) 1 applic TP QSHIFT [facility] - Labs Labs: 01/20/17 09:30 01/20/17 09:30 PT 11.5 Seconds (9.8-13.1) 01/18/17 18:00 INR 1.0 (0.9-1.2) 01/18/17 18:00 APTT 26.5 Seconds (25.6-37.1) 01/18/17 18:00 - Head Exam Head Exam: ATRAUMATIC - Eye Exam Eye Exam: Normal appearance - ENT Exam ENT Exam: Mucous Membranes Dry - Respiratory Exam Respiratory Exam: NORMAL BREATHING PATTERN - Cardiovascular Exam Cardiovascular Exam: +S1, +S2 - GI/Abdominal Exam GI & Abdominal Exam: Normal Bowel Sounds - Extremities Exam Extremities Exam: Normal Inspection Assessment and Plan (1) Anemia Assessment & Plan: chronic disease bone marrow suppression from immunosuppression transfusion support PRN Status: Acute
[2017-01-21] MEDS: metroNIDAZOLE 500mg/100ml NS 100 ML IVPB SCH ×2 (05:22→16:44)
[2017-01-21 06:29] LABS: HEMOGLOBIN 10.3 g/dL (12.0-16.0); MEAN CELL VOLUME 86.6 fl (81.0-99.0); MEAN CORPUSCULAR HGB CONC 32.4 g/dL (33.0-37.0); RBC 3.67 Mil/uL (3.80-5.20); RED CELL DISTRIBUTION WIDTH 17.5 % (11.5-14.5); WHITE BLOOD COUNT 8.1 K/uL (4.8-10.8)
[2017-01-21] MEDS: Insulin Regular 100 units/ml SC SCH ×3 (06:33→16:46)
[2017-01-21 06:39] LABS: BLOOD UREA NITROGEN 13 mg/dl (7-17); CALCIUM 11.5 mg/dL (8.4-10.2); GFR AFRICAN-AMERICAN > 60; GFR NON-AFRICAN AMERICAN 57
--- NOTE | 2017-01-21 07:03 | CARD ---
APPROVED REPORT EKG Measurement Heart [id number] <Conclusion> Normal sinus rhythm Normal ECG
--- NOTE | 2017-01-21 08:16 | CP.PCM.PN ---
<Musa Bustillos - Last Filed: 01/21/17 17:24> Subjective - Date & Time of Evaluation Date of Evaluation: 01/21/17 Time of Evaluation: 08:13 - Subjective Subjective: Surgery Progress note. Dr. Wilson Pt seen and examined at bedside. No acute events overnight. No N/V/D. No F/C. No SOB. No new complaints. Tolerating diet. Objective - Vital Signs/Intake and Output Vital Signs (last 24 hours): Temp Pulse Resp BP Pulse Ox 98.1 F 76 18 117/64 98 01/21/17 08:11 01/21/17 08:11 01/21/17 08:11 01/21/17 08:11 01/21/17 08:11 - Medications Medications: Current Medications Acetaminophen (Tylenol 325mg Tab) 650 mg PO Q4H PRN PRN Reason: Temp >100 Acetaminophen (Tylenol 325mg Tab) 650 mg PO Q4H PRN PRN Reason: Pain, Mild (1-3) Amlodipine Besylate (Norvasc) 5 mg PO DAILY [facility] Last Admin: 01/20/17 09:12 Dose: 5 mg Cinacalcet (Sensipar) 30 mg PO DAILY [facility] Last Admin: 01/20/17 09:12 Dose: 30 mg Dimethicone (Proshield Plus Skin Protectant) 1 applic TOP Q8 [facility] Last Admin: 01/21/17 00:58 Dose: 1 applic Docusate Sodium (Colace) 100 mg PO Q12H PRN PRN Reason: Constipation Ciprofloxacin (Cipro 200mg/100ml D5w) 100 mls @ 100 mls/hr IVPB Q12 [facility] Last Admin: 01/20/17 22:06 Dose: 100 mls/hr Metronidazole (Flagyl 500mg/100ml Ns) 100 mls @ 100 mls/hr IVPB Q8@0600,1400, 2200 [facility] Last Admin: 01/21/17 05:22 Dose: 100 mls/hr Meropenem 500 mg/ Sodium (Chloride) 100 mls @ 100 mls/hr IVPB Q12 [facility] Last Admin: 01/20/17 20:52 Dose: 100 mls/hr Insulin Human Regular (Humulin R) 0 units SC ACHS [facility] PRN Reason: Protocol Last Admin: 01/21/17 06:33 Dose: Not Given Magnesium Chloride (Mag Delay 64mg) 1 tab PO DAILY [facility] Last Admin: 01/20/17 09:16 Dose: 1 tab Mycophenolate Mofetil (Cellcept Cap) 250 mg PO BID [facility] Last Admin: 01/20/17 16:14 Dose: 250 mg Ondansetron HCl (Zofran Inj) 4 mg IVP Q4 PRN PRN Reason: Nausea/Vomiting Last Admin: 01/21/17 04:39 Dose: 4 mg Pantoprazole Sodium (Protonix Ec Tab) 40 mg PO DAILY [facility] Last Admin: 01/20/17 09:15 Dose: 40 mg Prednisone (Prednisone Tab) 5 mg PO DAILY [facility] Last Admin: 01/20/17 09:11 Dose: 5 mg Repaglinide (Prandin) 0.5 mg PO AC [facility] Last Admin: 01/20/17 16:11 Dose: 0.5 mg Saccharomyces Boulardii (Florastor) 250 mg PO BID [facility] Last Admin: 01/20/17 16:14 Dose: 250 mg Tacrolimus (Prograf Cap) 5 mg PO BID [facility] Last Admin: 01/20/17 16:17 Dose: 5 mg Trimethoprim/Sulfamethoxazole (Bactrim Ds Tab) 1 tab PO MOWEFR [facility] Last Admin: 01/21/17 00:58 Dose: 1 tab Vitamin A (Vitamin A&D) 1 applic TP QSHIFT [facility] - Labs Labs: 01/21/17 05:30 01/21/17 05:30 PT 11.5 Seconds (9.8-13.1) 01/18/17 18:00 INR 1.0 (0.9-1.2) 01/18/17 18:00 APTT 26.5 Seconds (25.6-37.1) 01/18/17 18:00 - Constitutional Appears: Well, No Acute Distress - Head Exam Head Exam: ATRAUMATIC, NORMAL INSPECTION, NORMOCEPHALIC - Eye Exam Eye Exam: EOMI - ENT Exam ENT Exam: Mucous Membranes Moist - Respiratory Exam Respiratory Exam: NORMAL BREATHING PATTERN - GI/Abdominal Exam GI & Abdominal Exam: Soft. absent: Distended, Guarding, Rigid, Tenderness, Rebound - Extremities Exam Extremities Exam: Normal Inspection. absent: Calf Tenderness - Neurological Exam Neurological Exam: Alert, Awake - Skin Skin Exam: Normal Color, Warm Assessment and Plan - Assessment and Plan (Free Text) Assessment: 61F with recurrent Colitis - Continue medical management - Continue IV Abx - GI soft, bland diet Discussed case with Dr. Steve Bustillos PGY1 surgery pager: [phone] <Reno Wilson - Last Filed: 01/21/17 20:12> Subjective - Date & Time of Evaluation Time of Evaluation: 19:40 - Subjective Subjective: Patient was seen and examined at the bedside. Agree with resident's note above. Objective - Vital Signs/Intake and Output Vital Signs (last 24 hours): Temp Pulse Resp BP Pulse Ox 98.1 F 78 20 140/77 99 01/21/17 16:03 01/21/17 16:03 01/21/17 16:03 01/21/17 16:03 01/21/17 16:03 - Medications Medications: Current Medications Acetaminophen (Tylenol 325mg Tab) 650 mg PO Q4H PRN PRN Reason: Temp >100 Acetaminophen (Tylenol 325mg Tab) 650 mg PO Q4H PRN PRN Reason: Pain, Mild (1-3) Amlodipine Besylate (Norvasc) 5 mg PO DAILY [facility] Last Admin: 01/21/17 08:37 Dose: 5 mg Cinacalcet (Sensipar) 30 mg PO DAILY [facility] Last Admin: 01/21/17 08:37 Dose: 30 mg Dimethicone (Proshield Plus Skin Protectant) 1 applic TOP Q8 [facility] Last Admin: 01/21/17 16:46 Dose: 1 applic Docusate Sodium (Colace) 100 mg PO Q12H PRN PRN Reason: Constipation Ciprofloxacin (Cipro 200mg/100ml D5w) 100 mls @ 100 mls/hr IVPB Q12 [facility] Last Admin: 01/21/17 08:39 Dose: 100 mls/hr Metronidazole (Flagyl 500mg/100ml Ns) 100 mls @ 100 mls/hr IVPB Q8@0600,1400, 2200 [facility] Last Admin: 01/21/17 16:44 Dose: 100 mls/hr Meropenem 500 mg/ Sodium (Chloride) 100 mls @ 100 mls/hr IVPB Q12 [facility] Last Admin: 01/21/17 10:36 Dose: 100 mls/hr Insulin Human Regular (Humulin R) 0 units SC ACHS [facility] PRN Reason: Protocol Last Admin: 01/21/17 16:46 Dose: Not Given Magnesium Chloride (Mag Delay 64mg) 1 tab PO DAILY [facility] Last Admin: 01/21/17 08:36 Dose: 1 tab Mycophenolate Mofetil (Cellcept Cap) 250 mg PO BID [facility] Last Admin: 01/21/17 16:44 Dose: 250 mg Ondansetron HCl (Zofran Inj) 4 mg IVP Q4 PRN PRN Reason: Nausea/Vomiting Last Admin: 01/21/17 04:39 Dose: 4 mg Pantoprazole Sodium (Protonix Ec Tab) 40 mg PO DAILY [facility] Last Admin: 01/21/17 08:38 Dose: 40 mg Prednisone (Prednisone Tab) 5 mg PO DAILY [facility] Last Admin: 01/21/17 08:38 Dose: 5 mg Repaglinide (Prandin) 0.5 mg PO AC [facility] Last Admin: 01/21/17 16:43 Dose: 0.5 mg Saccharomyces Boulardii (Florastor) 250 mg PO BID [facility] Last Admin: 01/21/17 16:44 Dose: 250 mg Tacrolimus (Prograf Cap) 5 mg PO BID [facility] Last Admin: 01/21/17 16:43 Dose: 5 mg Trimethoprim/Sulfamethoxazole (Bactrim Ds Tab) 1 tab PO MOWEFR [facility] Last Admin: 01/21/17 00:58 Dose: 1 tab Vitamin A (Vitamin A&D) 1 applic TP QSHIFT [facility] - Labs Labs: 01/21/17 05:30 01/21/17 05:30 PT 11.5 Seconds (9.8-13.1) 01/18/17 18:00 INR 1.0 (0.9-1.2) 01/18/17 18:00 APTT 26.5 Seconds (25.6-37.1) 01/18/17 18:00 Assessment and Plan - Assessment and Plan (Free Text) Plan: - Continue diet - Antibiotics as per primary team - Clear for discharge to rehab from the surgical stand point
[2017-01-21] MEDS: Saccharomyces Boulardi 250 mg Cap PO SCH ×2 (08:35→16:44)
[2017-01-21] MEDS: SlowMag 1 TAB PO SCH (08:36)
[2017-01-21] MEDS: Pantoprazole 40 mg EC Tab PO SCH (08:38)
[2017-01-21] MEDS: Ciprofloxacin 200mg/100ml D5W 100 ML IVPB SCH (08:39)
[2017-01-21] MEDS: Meropenem 500 MG in Sodium Chloride 0.9% 100 ML IVPB SCH (10:36)
--- NOTE | 2017-01-21 10:45 | CP.PCM.DIS ---
Provider - Provider Date of Admission: 01/18/17 21:29 Attending physician: Andrew Hernandez MD Primary care physician: Dr. El Consults: Endo consult surgery consult Hematology Infectious disease Nephro consult Time Spent in preparation of Discharge (in minutes): 20 Hospital Course - Lab Results Lab Results: Most Recent Lab Values WBC 8.1 K/uL (4.8-10.8) 01/21/17 05:30 RBC 3.67 Mil/uL (3.80-5.20) L 01/21/17 05:30 Hgb 10.3 g/dL (12.0-16.0) L 01/21/17 05:30 Hct 31.8 % (34.0-47.0) L 01/21/17 05:30 MCV 86.6 fl (81.0-99.0) 01/21/17 05:30 MCH 28.0 pg (27.0-31.0) 01/21/17 05:30 MCHC 32.4 g/dL (33.0-37.0) L 01/21/17 05:30 RDW 17.5 % (11.5-14.5) H 01/21/17 05:30 Plt Count 253 K/uL (130-400) 01/21/17 05:30 MPV 7.3 fl (7.2-11.7) 01/19/17 05:30 Neut % (Auto) 54.9 % (50.0-75.0) 01/19/17 05:30 Lymph % (Auto) 35.5 % (20.0-40.0) 01/19/17 05:30 [place] % (Auto) 8.6 % (0.0-10.0) 01/19/17 05:30 Eos % (Auto) 0.5 % (0.0-4.0) 01/19/17 05:30 Baso % (Auto) 0.5 % (0.0-2.0) 01/19/17 05:30 Neut # 3.3 K/uL (1.8-7.0) 01/19/17 05:30 Lymph # 2.1 K/uL (1.0-4.3) 01/19/17 05:30 [place] # 0.5 K/uL (0.0-0.8) 01/19/17 05:30 Eos # 0.0 K/uL (0.0-0.7) 01/19/17 05:30 Baso # 0.0 K/uL (0.0-0.2) 01/19/17 05:30 Neutrophils % (Manual) 92 % (42-75) H 01/18/17 18:00 Lymphocytes % (Manual) 5 % (20-50) L 01/18/17 18:00 Monocytes % (Manual) 3 % (0-10) 01/18/17 18:00 Platelet Estimate Normal (NORMAL) 01/18/17 18:00 PT 11.5 Seconds (9.8-13.1) 01/18/17 18:00 INR 1.0 (0.9-1.2) 01/18/17 18:00 APTT 26.5 Seconds (25.6-37.1) 01/18/17 18:00 Sodium 135 mmol/l (132-148) 01/21/17 05:30 Potassium 4.6 MMOL/L (3.6-5.0) 01/21/17 05:30 Chloride 105 mmol/L (98-107) 01/21/17 05:30 Carbon Dioxide 22 mmol/L (22-30) 01/21/17 05:30 Anion Gap 12 (10-20) 01/21/17 05:30 BUN 13 mg/dl (7-17) 01/21/17 05:30 Creatinine 1.0 mg/dL (0.7-1.2) 01/21/17 05:30 Est GFR ( Amer) > 60 01/21/17 05:30 Est GFR (Non-Af Amer) 57 01/21/17 05:30 POC Glucose (mg/dL) 78 mg/dL (65-110) 01/21/17 06:32 Random Glucose 83 mg/dL (65-105) 01/21/17 05:30 Lactic Acid 1.4 MMOL/L (0.7-2.1) 01/18/17 18:00 Calcium 11.5 mg/dL (8.4-10.2) H 01/21/17 05:30 Phosphorus 2.6 mg/dl (2.5-4.5) 01/20/17 09:30 Magnesium 2.0 MG/DL (1.6-2.3) 01/21/17 05:30 Total Bilirubin 0.2 mg/dl (0.2-1.3) 01/19/17 05:30 AST 13 U/L (14-36) L D 01/19/17 05:30 ALT 19 U/L (9-52) 01/19/17 05:30 Alkaline Phosphatase 57 U/L (38-126) 01/19/17 05:30 Total Protein 5.0 G/DL (6.3-8.2) L 01/19/17 05:30 Albumin 2.5 g/dL (3.5-5.0) L 01/19/17 05:30 Globulin 2.5 gm/dL (2.2-3.9) 01/19/17 05:30 Albumin/Globulin Ratio 1.0 (1.0-2.1) 01/19/17 05:30 Triglycerides 154 mg/DL (0-149) H 01/19/17 05:30 Cholesterol 150 mg/dL (0-199) 01/19/17 05:30 LDL Cholesterol Direct 67 mg/dL (0-129) 01/19/17 05:30 HDL Cholesterol 42 MG/DL (30-70) 01/19/17 05:30 Thyroxine (T4) 6.30 ug/dl (5.5-11.0) 01/19/17 05:30 TSH 3rd Generation 0.39 mIU/ML (0.46-4.68) L 01/19/17 05:30 Urine Color Yellow (YELLOW) 01/18/17 18:38 Urine Clarity Slighty-cloudy (Clear) 01/18/17 18:38 Urine pH 7.0 (5.0-8.0) 01/18/17 18:38 Ur Specific [place] 1.012 (1.003-1.030) 01/18/17 18:38 Urine Protein Negative mg/dL (NEGATIVE) 01/18/17 18:38 Urine Glucose (UA) Neg mg/dL (Normal) 01/18/17 18:38 Urine Ketones Negative mg/dL (NEGATIVE) 01/18/17 18:38 Urine Blood Negative (NEGATIVE) 01/18/17 18:38 Urine Nitrate Negative (NEGATIVE) 01/18/17 18:38 Urine Bilirubin Negative (NEGATIVE) 01/18/17 18:38 Urine Urobilinogen 0.2-1.0 mg/dL (0.2-1.0) 01/18/17 18:38 Ur Leukocyte Esterase Mod Benigno/uL (Negative) 01/18/17 18:38 Urine RBC (Auto) 1 /hpf (0-3) 01/18/17 18:38 Urine Microscopic WBC 3 /hpf (0-5) 01/18/17 18:38 Ur Squamous Epith Cells 6 /hpf (0-5) H 01/18/17 18:38 Urine Bacteria Occ (<OCC) H 01/18/17 18:38 Blood Type O POSITIVE 01/18/17 18:00 Antibody Screen Negative 01/18/17 18:00 BBK History Checked Patient has bt 01/18/17 18:00 - Hospital Course Hospital Course: 61 year old female was transferred from [facility] with a chief complaint of abnormal labs. Patient states that she was told that she had abn labs. Pt complained of some LLQ pain and her WBC count was elevated.She was recently treated for diverticulitis with Ciprro and flagyl. 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 and IVF Surgery and Gi were consulted that recommended current IV antibiotics and colonoscopy in 6-8 weeks.Her blood work up showed hypercalcemia that has been extensicvely worked up in the [facility] by PMD with no clear diagnosis. IVF given and patient started , endo consulted and started on Cinacalcet . her urine culture was reported as ESBL e.Coli, [id number] colonies. ID was consulted that recommended Meropenem IV for 5 days for possible ncolonization Patient is hemodynamically stable, afebrile, pain free, tolerating po intake well. Will discharge to [facility] to continue physical therapy and IV antibiotics PICC line was placed for poor IV access that should be discontinued once antibiotics are finished 1. Diverticulitis/Colitis pt was started on IV Cipro and Flagyl Surgery consulted- no surgical intervention - ff up as outpt GI recommended colonoscopy in 6-8 weeks continue Cipro and Flagyl Po for 7 more days 2 Hypercalcemia chronic unclear etiology Has had extensive work up before Given IVF continue sensipar Endocrine consult with Dr. Raina Wellington f/u with PMD 3.Chronic anemia S/P 2 units PRBC and Stool Occult Blood (+) upon last admission on 12/18/[address] Medina saw patient upon last admission and recommended Colonoscopy in 6 to 8 weeks Hematology/Oncology Dr. Lang Carrington also saw patient upon last admission and ordered SPEP 12/20/16 Dr. Lang Carrington as been re consulted for further recommendation concerning SPEP 12/20 findings. HOLD anticoagulation for now. 4.DM2 (diabetes mellitus, type 2) HgBA1C was 7.3 on 12/18/16 Prandin 0.5 mg PO AC Low dose Regular Insulin Sliding Scale with Accuchecks 4x/day 5. HTN (hypertension) controlled Norvasc 5 mg PO 1x/day 6. CKD (chronic kidney disease) hx of renal transplant Sensipar 30 mg PO 1x/day on tacrolimus and prednisone Manual [employer] Dr. Glez 7. History of kidney transplant History of Right Renal Transplant 2004 Tacrolimus 5mg PO 2x/day Prednisone 5 mg PO 1x/day Mycophenolate 250 mg PO 1x/day 8. Chronic UTI with ESBL E. Coli colonization Urine Culture: E coli ESBL , 100.000 empiric Meropenem for [address] Yee 9. Hypophosphatemia Neutra-Phos 1 pkt PO 10 Hypomagnesemia replaced with Mg So4 IV 11.Stage I pressure ulcer Located on the Left Buttock/Sacral Area ProShield Skin Protectant Turn/reposition Patient Q2H 12.Anemia anemia of chronic disease stable 13.Prophylactic measure NO anticoagulation for DVT Prophylaxis considering the Anemia SCD Discharge Exam - Head Exam Head Exam: ATRAUMATIC, NORMAL INSPECTION, NORMOCEPHALIC Additional comments: cachetic - Eye Exam Eye Exam: EOMI, Normal appearance, PERRL Pupil Exam: NORMAL ACCOMODATION - ENT Exam ENT Exam: Mucous Membranes Moist, Normal Exam - Neck Exam Neck exam: Full Rom, Normal Inspection - Respiratory Exam Respiratory Exam: Clear to PA & Lateral, NORMAL BREATHING PATTERN. absent: Rales, Rhonchi, Wheezes - Cardiovascular Exam Cardiovascular Exam: REGULAR RHYTHM, RRR, +S1, +S2. absent: JVD - GI/Abdominal Exam GI & Abdominal Exam: Normal Bowel Sounds, Soft. absent: Distended, Guarding, Rebound, Tenderness - Rectal Exam Rectal Exam: Deferred - Extremities Exam Extremities exam: normal capillary refill, normal inspection, pedal pulses present - Back Exam Back exam: NORMAL INSPECTION - Neurological Exam Neurological exam: Alert, CN II-XII Intact, Oriented x3, Reflexes Normal - Psychiatric Exam Psychiatric exam: Normal Affect, Normal Mood - Skin Skin Exam: Dry, Normal Color, Warm Additional comments: stage left buttock pressure ulcer Discharge Plan - Discharge Medications Prescriptions: Ciprofloxacin HCl [Cipro] 250 mg PO Q12 #14 tablet Meropenem 500 mg IV Q12 #10 pds Metronidazole [Flagyl] 250 mg PO Q8 #21 tablet - Follow Up Plan Condition: STABLE Disposition: TRANSF TO SNF Patient education suggested?: Yes Referrals: Sasha El MD [Medical Doctor] -
--- NOTE | 2017-01-21 11:15 | CP.PCM.CON ---
History of Present Illness - History of Present Illness History of Present Illness: ID Consult note- asked to see this patient at the request of for ESBL e.coli UTI. HPI- Most of the history obtained from the medical chart and the hospitalist and some from the patient as well. Pt. is a pleasant 61 year old female with pmh of DM Ii, HTN, s/p renal transplant , diverticulitis, who was sent to be admitted from [facility] due to abnormal labs. Pt. was apparently found to have elevatd wbc and in addition had LLQ pain as well. On admission CT she was found to have sigmoid colitis with giant diverticuli / pseudodiverticuli ( as per CT report) and pt. wsa satrted on cipro and flagyl Iv as per the primary team and has improved significantly but it was reported in her urine cx yesterday ESBL e.coli and hence I was consulted. I advised to start the pt. on IV meropenem until Isee her . per pt. has tolerated meropenm well during her prior admission. also as per med records she was recently in the hospital for diverticulitis sin november and was treated with IV cipro and flagyl during that admission ( as per records). Pt. denies any fever or chills and states her LLQ abd pain is much improved, denies any nausea or vomiting and states she is being transferred back to [place] today. Past medical history: HTN, DM Past surgical history: Kidney transplant, Family history: Denies tobacco, alcohol, and illicit drug use. Social history: Denies tobacco, alcohol, and illicit drug use. Allergies: Vancomycin, cefazolin, iodine Review of Systems - Review of Systems Review of Systems: ROS- denies any fever, denies any chills, denies any N/V, denies any cough, denies any sob, denies any chest pain, denies any n/v, sattes had left lower abd pain on admission but states has subsided now, denies any back pain, denies any dysurea, denies any diarrhea Past Patient History - Infectious Disease Hx of Infectious Diseases: None - Past Medical History & Family History Past Medical History?: Yes - Past Social History Alcohol: None Drugs: Denies Home Situation {Lives}: Longterm - CARDIAC Hx Hypercholesterolemia: Yes Hx Hypertension: Yes - PULMONARY Hx Respiratory Disorders: No - NEUROLOGICAL Hx Neurological Disorder: No - HEENT Hx HEENT Problems: No - RENAL Hx Chronic Kidney Disease: Yes (kidney transplant) - ENDOCRINE/METABOLIC Hx Endocrine Disorders: Yes - HEMATOLOGICAL/ONCOLOGICAL Hx Anemia: Yes - INTEGUMENTARY Hx Dermatological Problems: No - MUSCULOSKELETAL/RHEUMATOLOGICAL Hx Falls: Yes - GASTROINTESTINAL Hx Gastrointestinal Disorders: Yes Hx Colitis: Yes - GENITOURINARY/GYNECOLOGICAL Hx Genitourinary Disorders: Yes (UTI) Hx Urinary Tract Infection: Yes - PSYCHIATRIC Hx Psychophysiologic Disorder: No Hx Substance Use: No - SURGICAL HISTORY Hx Surgeries: Yes Hx Arteriovenous Shunt: Yes Hx Section: Yes Hx Vascular Access Device: Yes Other/Comment: RIGHT KIDNEY TRANSPLANT - ANESTHESIA Hx Anesthesia: Yes Hx Anesthesia Reactions: No Hx Malignant Hyperthermia: No Meds Home Medications: Home Medication List Medication Instructions Recorded Confirmed Type Dimethicone [Proshield Plus Skin 1 applic TOP Q8 gel 01/21/17 Rx Protectant] Meropenem [Merrem IV] 500 mg IV Q12 #14 pds 01/21/17 Rx Metronidazole [Flagyl] 250 mg PO Q8 #21 tablet 01/21/17 Rx Pantoprazole [Protonix EC Tab] 40 mg PO DAILY ect 01/21/17 Rx Saccharomyces Boulardi [Florastor] 250 mg PO BID cap 01/21/17 Rx Allergies/Adverse Reactions: Allergies Allergy/AdvReac Type Severity Reaction Status Date / Time cefazolin Allergy ITCHING Verified 03/13/16 12:44 iodine Allergy ITCHING Verified 03/13/16 12:44 vancomycin Allergy ITCHING Verified 03/13/16 12:44 - Medications Medications: Current Medications Acetaminophen (Tylenol 325mg Tab) 650 mg PO Q4H PRN PRN Reason: Temp >100 Acetaminophen (Tylenol 325mg Tab) 650 mg PO Q4H PRN PRN Reason: Pain, Mild (1-3) Amlodipine Besylate (Norvasc) 5 mg PO DAILY [facility] Last Admin: 01/21/17 08:37 Dose: 5 mg Cinacalcet (Sensipar) 30 mg PO DAILY [facility] Last Admin: 01/21/17 08:37 Dose: 30 mg Dimethicone (Proshield Plus Skin Protectant) 1 applic TOP Q8 [facility] Last Admin: 01/21/17 08:35 Dose: 1 applic Docusate Sodium (Colace) 100 mg PO Q12H PRN PRN Reason: Constipation Ciprofloxacin (Cipro 200mg/100ml D5w) 100 mls @ 100 mls/hr IVPB Q12 [facility] Last Admin: 01/21/17 08:39 Dose: 100 mls/hr Metronidazole (Flagyl 500mg/100ml Ns) 100 mls @ 100 mls/hr IVPB Q8@0600,1400, 2200 [facility] Last Admin: 01/21/17 05:22 Dose: 100 mls/hr Meropenem 500 mg/ Sodium (Chloride) 100 mls @ 100 mls/hr IVPB Q12 [facility] Last Admin: 01/21/17 10:36 Dose: 100 mls/hr Insulin Human Regular (Humulin R) 0 units SC ACHS BEN PRN Reason: Protocol Last Admin: 01/21/17 06:33 Dose: Not Given Magnesium Chloride (Mag Delay 64mg) 1 tab PO DAILY [facility] Last Admin: 01/21/17 08:36 Dose: 1 tab Mycophenolate Mofetil (Cellcept Cap) 250 mg PO BID [facility] Last Admin: 01/21/17 08:36 Dose: 250 mg Ondansetron HCl (Zofran Inj) 4 mg IVP Q4 PRN PRN Reason: Nausea/Vomiting Last Admin: 01/21/17 04:39 Dose: 4 mg Pantoprazole Sodium (Protonix Ec Tab) 40 mg PO DAILY [facility] Last Admin: 01/21/17 08:38 Dose: 40 mg Prednisone (Prednisone Tab) 5 mg PO DAILY [facility] Last Admin: 01/21/17 08:38 Dose: 5 mg Repaglinide (Prandin) 0.5 mg PO AC [facility] Last Admin: 01/21/17 08:35 Dose: 0.5 mg Saccharomyces Boulardii (Florastor) 250 mg PO BID [facility] Last Admin: 01/21/17 08:35 Dose: 250 mg Tacrolimus (Prograf Cap) 5 mg PO BID [facility] Last Admin: 01/21/17 08:36 Dose: 5 mg Trimethoprim/Sulfamethoxazole (Bactrim Ds Tab) 1 tab PO MOWEFR [facility] Last Admin: 01/21/17 00:58 Dose: 1 tab Vitamin A (Vitamin A&D) 1 applic TP QSHIFT [facility] Physical Exam - Constitutional Appears: No Acute Distress - Head Exam Head Exam: ATRAUMATIC - Eye Exam Eye Exam: EOMI, PERRL - ENT Exam ENT Exam: Normal Oropharynx - Neck Exam Neck exam: Positive for: Full Rom - Respiratory Exam Respiratory Exam: Clear to Auscultation Bilateral, NORMAL BREATHING PATTERN - Cardiovascular Exam Cardiovascular Exam: RRR, +S1, +S2 - GI/Abdominal Exam GI & Abdominal Exam: Normal Bowel Sounds, Soft Additional comments: NT, ND No rebound, no guarding - Extremities Exam Extremities exam: Positive for: normal inspection - Neurological Exam Neurological exam: Alert, Oriented x3 Results - Vital Signs Recent Vital Signs: Last Vital Signs Temp 98.1 F 01/21/17 08:11 Pulse 76 01/21/17 08:11 Resp 18 01/21/17 08:11 BP 117/64 01/21/17 08:37 Pulse Ox 98 01/21/17 08:11 - Labs Result Diagrams: 01/21/17 05:30 01/21/17 05:30 Labs: Laboratory Results - last 24 hr 01/20/17 01/20/17 01/20/17 16:33 19:10 21:45 WBC RBC Hgb Hct MCV MCH MCHC RDW Plt Count Sodium Potassium Chloride Carbon Dioxide Anion Gap BUN Creatinine Est GFR ( Amer) Est GFR (Non-Af Amer) POC Glucose (mg/dL) 119 H 107 Random Glucose Calcium Magnesium 2.2 01/21/17 01/21/17 01/21/17 05:30 05:30 06:32 WBC 8.1 RBC 3.67 L Hgb 10.3 L Hct 31.8 L MCV 86.6 MCH 28.0 MCHC 32.4 L RDW 17.5 H Plt Count 253 Sodium 135 Potassium 4.6 Chloride 105 Carbon Dioxide 22 Anion Gap 12 BUN 13 Creatinine 1.0 Est GFR ( Amer) > 60 Est GFR (Non-Af Amer) 57 POC Glucose (mg/dL) 78 Random Glucose 83 Calcium 11.5 H Magnesium 2.0 Laboratory Results - last 72 hr 01/18/17 01/18/17 01/18/17 17:44 18:00 18:00 WBC 16.5 H D RBC 3.61 L Hgb 9.7 L D Hct 31.5 L MCV 87.0 D MCH 26.8 L MCHC 30.8 L RDW 17.3 H Plt Count 291 D MPV 6.5 L Neut % (Auto) 85.3 H Lymph % (Auto) 9.9 L Cass % (Auto) 4.6 Eos % (Auto) 0.0 Baso % (Auto) 0.2 Neut # 14.0 H Lymph # 1.6 Cass # 0.8 Eos # 0.0 Baso # 0.0 Neutrophils % (Manual) 92 H Lymphocytes % (Manual) 5 L Monocytes % (Manual) 3 Platelet Estimate Normal PT INR APTT Sodium 134 Potassium 4.7 Chloride 104 Carbon Dioxide 23 Anion Gap 12 BUN 20 H Creatinine 0.9 Est GFR ( Amer) > 60 Est GFR (Non-Af Amer) > 60 POC Glucose (mg/dL) 102 Random Glucose 92 Lactic Acid Calcium 11.2 H Phosphorus 2.0 L Magnesium 1.3 L Total Bilirubin 0.2 AST 20 ALT 25 Alkaline Phosphatase 75 Total Protein 6.0 L Albumin 3.1 L D Globulin 2.8 Albumin/Globulin Ratio 1.1 Triglycerides Cholesterol LDL Cholesterol Direct HDL Cholesterol Thyroxine (T4) TSH 3rd Generation Urine Color Urine Clarity Urine pH Ur Specific [place] Urine Protein Urine Glucose (UA) Urine Ketones Urine Blood Urine Nitrate Urine Bilirubin Urine Urobilinogen Ur Leukocyte Esterase Urine RBC (Auto) Urine Microscopic WBC Ur Squamous Epith Cells Urine Bacteria Blood Type Antibody Screen BBK History Checked 01/18/17 01/18/17 01/18/17 18:00 18:00 18:00 WBC RBC Hgb Hct MCV MCH MCHC RDW Plt Count MPV Neut % (Auto) Lymph % (Auto) Cass % (Auto) Eos % (Auto) Baso % (Auto) Neut # Lymph # Cass # Eos # Baso # Neutrophils % (Manual) Lymphocytes % (Manual) Monocytes % (Manual) Platelet Estimate PT 11.5 INR 1.0 APTT 26.5 Sodium Potassium Chloride Carbon Dioxide Anion Gap BUN Creatinine Est GFR ( Amer) Est GFR (Non-Af Amer) POC Glucose (mg/dL) Random Glucose Lactic Acid 1.4 Calcium Phosphorus Magnesium Total Bilirubin AST ALT Alkaline Phosphatase Total Protein Albumin Globulin Albumin/Globulin Ratio Triglycerides Cholesterol LDL Cholesterol Direct HDL Cholesterol Thyroxine (T4) TSH 3rd Generation Urine Color Urine Clarity Urine pH Ur Specific [place] Urine Protein Urine Glucose (UA) Urine Ketones Urine Blood Urine Nitrate Urine Bilirubin Urine Urobilinogen Ur Leukocyte Esterase Urine RBC (Auto) Urine Microscopic WBC Ur Squamous Epith Cells Urine Bacteria Blood Type O POSITIVE Antibody Screen Negative BBK History Checked Patient has bt 01/18/17 01/18/17 01/19/17 18:38 22:44 05:30 WBC 6.0 D RBC 2.97 L Hgb 8.5 L Hct 25.3 L MCV 85.2 MCH 28.7 MCHC 33.7 RDW 17.0 H Plt Count 265 MPV 7.3 Neut % (Auto) 54.9 Lymph % (Auto) 35.5 Cass % (Auto) 8.6 Eos % (Auto) 0.5 Baso % (Auto) 0.5 Neut # 3.3 Lymph # 2.1 Cass # 0.5 Eos # 0.0 Baso # 0.0 Neutrophils % (Manual) Lymphocytes % (Manual) Monocytes % (Manual) Platelet Estimate PT INR APTT Sodium Potassium Chloride Carbon Dioxide Anion Gap BUN Creatinine Est GFR ( Amer) Est GFR (Non-Af Amer) POC Glucose (mg/dL) 151 H Random Glucose Lactic Acid Calcium Phosphorus Magnesium Total Bilirubin AST ALT Alkaline Phosphatase Total Protein Albumin Globulin Albumin/Globulin Ratio Triglycerides Cholesterol LDL Cholesterol Direct HDL Cholesterol Thyroxine (T4) TSH 3rd Generation Urine Color Yellow Urine Clarity Slighty-cloudy Urine pH 7.0 Ur Specific [place] 1.012 Urine Protein Negative Urine Glucose (UA) Neg Urine Ketones Negative Urine Blood Negative Urine Nitrate Negative Urine Bilirubin Negative Urine Urobilinogen 0.2-1.0 Ur Leukocyte Esterase Mod Urine RBC (Auto) 1 Urine Microscopic WBC 3 Ur Squamous Epith Cells 6 H Urine Bacteria Occ H Blood Type Antibody Screen BBK History Checked 01/19/17 01/19/17 01/19/17 05:30 05:59 11:10 WBC RBC Hgb Hct MCV MCH MCHC RDW Plt Count MPV Neut % (Auto) Lymph % (Auto) Cass % (Auto) Eos % (Auto) Baso % (Auto) Neut # Lymph # Cass # Eos # Baso # Neutrophils % (Manual) Lymphocytes % (Manual) Monocytes % (Manual) Platelet Estimate PT INR APTT Sodium 136 Potassium 4.1 Chloride 108 H Carbon Dioxide 24 Anion Gap 8 L BUN 16 Creatinine 0.9 Est GFR ( Amer) > 60 Est GFR (Non-Af Amer) > 60 POC Glucose (mg/dL) 61 L 93 Random Glucose 77 Lactic Acid Calcium 11.1 H Phosphorus 2.4 L Magnesium 1.3 L Total Bilirubin 0.2 AST 13 L D ALT 19 Alkaline Phosphatase 57 Total Protein 5.0 L Albumin 2.5 L Globulin 2.5 Albumin/Globulin Ratio 1.0 Triglycerides 154 H Cholesterol 150 LDL Cholesterol Direct 67 HDL Cholesterol 42 Thyroxine (T4) 6.30 TSH 3rd Generation 0.39 L Urine Color Urine Clarity Urine pH Ur Specific [place] Urine Protein Urine Glucose (UA) Urine Ketones Urine Blood Urine Nitrate Urine Bilirubin Urine Urobilinogen Ur Leukocyte Esterase Urine RBC (Auto) Urine Microscopic WBC Ur Squamous Epith Cells Urine Bacteria Blood Type Antibody Screen BBK History Checked 01/19/17 01/19/17 01/20/17 17:05 21:18 05:40 WBC RBC Hgb Hct MCV MCH MCHC RDW Plt Count MPV Neut % (Auto) Lymph % (Auto) Cass % (Auto) Eos % (Auto) Baso % (Auto) Neut # Lymph # Cass # Eos # Baso # Neutrophils % (Manual) Lymphocytes % (Manual) Monocytes % (Manual) Platelet Estimate PT INR APTT Sodium Potassium Chloride Carbon Dioxide Anion Gap BUN Creatinine Est GFR ( Amer) Est GFR (Non-Af Amer) POC Glucose (mg/dL) 102 91 80 Random Glucose Lactic Acid Calcium Phosphorus Magnesium Total Bilirubin AST ALT Alkaline Phosphatase Total Protein Albumin Globulin Albumin/Globulin Ratio Triglycerides Cholesterol LDL Cholesterol Direct HDL Cholesterol Thyroxine (T4) TSH 3rd Generation Urine Color Urine Clarity Urine pH Ur Specific [place] Urine Protein Urine Glucose (UA) Urine Ketones Urine Blood Urine Nitrate Urine Bilirubin Urine Urobilinogen Ur Leukocyte Esterase Urine RBC (Auto) Urine Microscopic WBC Ur Squamous Epith Cells Urine Bacteria Blood Type Antibody Screen BBK History Checked 01/20/17 01/20/17 01/20/17 09:30 09:30 10:47 WBC 7.1 RBC 3.64 L Hgb 10.2 L Hct 31.1 L MCV 85.6 MCH 28.1 MCHC 32.9 L RDW 17.5 H Plt Count 273 MPV Neut % (Auto) Lymph % (Auto) Cass % (Auto) Eos % (Auto) Baso % (Auto) Neut # Lymph # Cass # Eos # Baso # Neutrophils % (Manual) Lymphocytes % (Manual) Monocytes % (Manual) Platelet Estimate PT INR APTT Sodium 137 Potassium 4.6 Chloride 108 H Carbon Dioxide 23 Anion Gap 11 BUN 11 Creatinine 0.9 Est GFR ( Amer) > 60 Est GFR (Non-Af Amer) > 60 POC Glucose (mg/dL) 75 Random Glucose 83 Lactic Acid Calcium 11.6 H Phosphorus 2.6 Magnesium 1.2 L Total Bilirubin AST ALT Alkaline Phosphatase Total Protein Albumin Globulin Albumin/Globulin Ratio Triglycerides Cholesterol LDL Cholesterol Direct HDL Cholesterol Thyroxine (T4) TSH 3rd Generation Urine Color Urine Clarity Urine pH Ur Specific [place] Urine Protein Urine Glucose (UA) Urine Ketones Urine Blood Urine Nitrate Urine Bilirubin Urine Urobilinogen Ur Leukocyte Esterase Urine RBC (Auto) Urine Microscopic WBC Ur Squamous Epith Cells Urine Bacteria Blood Type Antibody Screen BBK History Checked 01/20/17 01/20/17 01/20/17 16:33 19:10 21:45 WBC RBC Hgb Hct MCV MCH MCHC RDW Plt Count MPV Neut % (Auto) Lymph % (Auto) Cass % (Auto) Eos % (Auto) Baso % (Auto) Neut # Lymph # Cass # Eos # Baso # Neutrophils % (Manual) Lymphocytes % (Manual) Monocytes % (Manual) Platelet Estimate PT INR APTT Sodium Potassium Chloride Carbon Dioxide Anion Gap BUN Creatinine Est GFR ( Amer) Est GFR (Non-Af Amer) POC Glucose (mg/dL) 119 H 107 Random Glucose Lactic Acid Calcium Phosphorus Magnesium 2.2 Total Bilirubin AST ALT Alkaline Phosphatase Total Protein Albumin Globulin Albumin/Globulin Ratio Triglycerides Cholesterol LDL Cholesterol Direct HDL Cholesterol Thyroxine (T4) TSH 3rd Generation Urine Color Urine Clarity Urine pH Ur Specific [place] Urine Protein Urine Glucose (UA) Urine Ketones Urine Blood Urine Nitrate Urine Bilirubin Urine Urobilinogen Ur Leukocyte Esterase Urine RBC (Auto) Urine Microscopic WBC Ur Squamous Epith Cells Urine Bacteria Blood Type Antibody Screen BBK History Checked 01/21/17 01/21/17 01/21/17 05:30 05:30 06:32 WBC 8.1 RBC 3.67 L Hgb 10.3 L Hct 31.8 L MCV 86.6 MCH 28.0 MCHC 32.4 L RDW 17.5 H Plt Count 253 MPV Neut % (Auto) Lymph % (Auto) Cass % (Auto) Eos % (Auto) Baso % (Auto) Neut # Lymph # Cass # Eos # Baso # Neutrophils % (Manual) Lymphocytes % (Manual) Monocytes % (Manual) Platelet Estimate PT INR APTT Sodium 135 Potassium 4.6 Chloride 105 Carbon Dioxide 22 Anion Gap 12 BUN 13 Creatinine 1.0 Est GFR ( Amer) > 60 Est GFR (Non-Af Amer) 57 POC Glucose (mg/dL) 78 Random Glucose 83 Lactic Acid Calcium 11.5 H Phosphorus Magnesium 2.0 Total Bilirubin AST ALT Alkaline Phosphatase Total Protein Albumin Globulin Albumin/Globulin Ratio Triglycerides Cholesterol LDL Cholesterol Direct HDL Cholesterol Thyroxine (T4) TSH 3rd Generation Urine Color Urine Clarity Urine pH Ur Specific [place] Urine Protein Urine Glucose (UA) Urine Ketones Urine Blood Urine Nitrate Urine Bilirubin Urine Urobilinogen Ur Leukocyte Esterase Urine RBC (Auto) Urine Microscopic WBC Ur Squamous Epith Cells Urine Bacteria Blood Type Antibody Screen BBK History Checked 01/21/17 11:03 WBC RBC Hgb Hct MCV MCH MCHC RDW Plt Count MPV Neut % (Auto) Lymph % (Auto) Cass % (Auto) Eos % (Auto) Baso % (Auto) Neut # Lymph # Cass # Eos # Baso # Neutrophils % (Manual) Lymphocytes % (Manual) Monocytes % (Manual) Platelet Estimate PT INR APTT Sodium Potassium Chloride Carbon Dioxide Anion Gap BUN Creatinine Est GFR ( Amer) Est GFR (Non-Af Amer) POC Glucose (mg/dL) 110 Random Glucose Lactic Acid Calcium Phosphorus Magnesium Total Bilirubin AST ALT Alkaline Phosphatase Total Protein Albumin Globulin Albumin/Globulin Ratio Triglycerides Cholesterol LDL Cholesterol Direct HDL Cholesterol Thyroxine (T4) TSH 3rd Generation Urine Color Urine Clarity Urine pH Ur Specific [place] Urine Protein Urine Glucose (UA) Urine Ketones Urine Blood Urine Nitrate Urine Bilirubin Urine Urobilinogen Ur Leukocyte Esterase Urine RBC (Auto) Urine Microscopic WBC Ur Squamous Epith Cells Urine Bacteria Blood Type Antibody Screen BBK History Checked Microbiology 01/18/17 18:00 Blood Blood Culture - Preliminary NO GROWTH AFTER 48 HOURS 01/18/17 19:27 Urine Urine Culture - Final Escherichia Coli Microbiology 06/02/16 09:25 Blood Blood Culture - Final 06/02/16 09:25 Blood Gram Stain - Final NO GROWTH AFTER 5 DAYS TEST NOT PERFORMED 06/02/16 07:00 Urine Urine Culture - Final Escherichia Coli 04/29/16 12:00 Urine,Babin Urine Culture - Final Escherichia Coli 12/18/16 11:20 Blood Blood Culture - Final 12/18/16 11:20 Blood Gram Stain - Final NO GROWTH AFTER 5 DAYS TEST NOT PERFORMED 09/23/16 21:42 Urine Urine Culture - Final No Growth (<1,000 CFU/ML) 09/23/16 00:15 Blood Blood Culture - Final 09/23/16 00:15 Blood Gram Stain - Final NO GROWTH AFTER 5 DAYS TEST NOT PERFORMED Accession No. : [id number] Patient Name / ID : ANKUR Waller / [id number] Exam Date : 01/18/2017 20:00:35 ( Approved ) Study Comment : Sex / Age : F / 61Y Creator : PARVEZ GORDILLO Dictator : Senior Radiation Therapist : Mid Wife : PARVEZ GORDILLO Approver2 : Report Date : 01/18/2017 20:58:00 My Comment : [facility] Division of Radiology [address] [place] [address] Tel. no. Patient Name: BARBARA PASCUAL Pt. Address: [address] [place] [address] Rec #: [id number] [place] [address]: Juan Francisco LUNA, Candice Paris Pt CELL Order Location: [facility] : 1955 Female Age: 61 Order #: [id number] Reason for exam: abd pain diverticulitis CT Scan ABD PELVIS W/O PO OR IV CONT Exam Date: 01/18/17 This imaging exam was performed at [facility] EXAM: CT Abdomen and Pelvis Without Intravenous Contrast CLINICAL HISTORY: 61 years old, female; Signs and symptoms; Other: Weakness; Additional info: Abd pain diverticulitis. Sent phy. Doc with request TECHNIQUE: Axial computed tomography images of the abdomen and pelvis without intravenous contrast. This CT exam was performed using one or more of the following dose reduction techniques: automated exposure control, adjustment of the mA and/or kV according to patient size, and/or use of iterative reconstruction technique. Coronal and sagittal reformatted images were created and reviewed. EXAM DATE/TIME: 01/18/2017 7:23 PM COMPARISON: CT - CHEST,ABDOMEN,PELVIS W/O CONT 12/18/2016 4:18:00 AM, CT abdomen pelvis 09/23/16, 03/13/16 FINDINGS: Lower thorax: Heart size is normal. There are coronary calcifications. There is a hiatal hernia. Lung bases are hyperinflated. There is scarring lung bases left greater than right. There is a small hiatal hernia ABDOMEN: Liver: unremarkable Gallbladder and bile ducts: Gallbladder is partially distended. There are multiple small calcified stones. Common bile duct is unremarkable. Pancreas: Pancreas is mildly atrophic. Spleen: unremarkable Adrenals: unremarkable Kidneys and ureters: [place] kidneys are atrophic. There is no dilatation. 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 There is a cyst in the transplanted kidney. There are no renal or ureteral stones.There is no pelvocaliectasis or ureterectasis. Stomach and bowel: Stomach is partially distended. There is an air-fluid level. Rotation is normal. Small bowel is mildly distended with fluid and air. There is no obstruction. There is fecalization of the terminal ileum. Appendix is unremarkable. There is moderate stool in the right colon. Descending colon is collapsed. There scattered diverticula. There continues to be marked thickening of the wall of the sigmoid. There are large sigmoid outpouching's containing enteric contents. There is no colonic obstruction Appendix: See stomach and bowel PELVIS: Bladder: unremarkable Reproductive: Uterus is lobular with calcifications. Adnexa are not well demonstrated. ABDOMEN and PELVIS: Intraperitoneal space:There is no free air. There is a small amount of free fluid in the pelvis without the sigmoid Bones/joints: Bony structures are osteopenic.There are degenerative changes in the osseus structures. Soft tissues: unremarkable Vasculature: There are calcifications in the aorta and iliacs. Extensive calcification in small vessels in the abdomen and pelvis area and Lymph nodes: There is shotty para-aortic adenopathy. Other findings: Latter is partially distended urinary and IMPRESSION: Sigmoid colitis with a giant diverticula/pseudodiverticula, unchanged; mild perisigmoid inflammation; probable fibroid uterus; atrophic [place] kidneys with transplanted kidney in the right iliac fossa, unchanged; extensive atherosclerotic disease; gallstones Additional findings as described above. Dictated By: Parvez Gordillo MD, MD Dictated Date/Time: 01/18/172057 Signed By: Parvez Gordillo MD Date Signed: 2057 Transcribed By: MEDHAT Transcribe Date/Time : 01/18/172057 KAELYN/VRD Accession No. : [id number] Patient Name / ID : ANKUR JIMENEZ D / [id number] Exam Date : 01/18/2017 18:01:24 ( Approved ) Study Comment : Sex / Age : F / 61Y Creator : Scottie Pires MD Dictator : Scottie Pires MD Senior Radiation Therapist : Mid Wife : Scottie Pires MD Approver2 : Report Date : 01/18/2017 18:05:49 My Comment : HISTORY: weakness COMPARISON: 04/29/2016 FINDINGS: LUNGS: No active pulmonary disease. PLEURA: No significant pleural effusion identified, no pneumothorax apparent. CARDIOVASCULAR: Normal. OSSEOUS STRUCTURES: No significant abnormalities. VISUALIZED UPPER ABDOMEN: Normal. OTHER FINDINGS: Right axillary vascular stent noted IMPRESSION: No active disease. Assessment & Plan (1) Diverticulitis Status: Acute (2) History of kidney transplant Status: Acute (3) Chronic UTI Status: Chronic (4) Anemia in chronic kidney disease (CKD) Status: Chronic - Assessment and Plan (Free Text) Assessment: A/P- 61 year old female with h/o renal transplant, CKD, chronic UTIs , diverticulitis who was admitted with leukocytosis and LLQ pain found to have diverticulitis with giant diverticula and urine cx pos for ESBL e.coli. currently pt. is asymptomatic and her admission leukocytosis has resolved on the IV cirpro and flagyl that she as on since admission and is afebrile . her urine cx was reported yesterday as ESBL e.coli sens to carbapenems and she was started on meropnem yesterday. 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 and hence by definition immunocompromised and on immunosuppressive meds would advise to treat with meropenm for 5 days and d/c the abx after that. pt. should be on probiotics as well at least while on the antibiotic. pt. has not reported any itching on the meropenem and has tolerated this well so far . she can receive the [place] meropenem at the [place] with close supervision from her nurse and primary doc to make sure she does not develop any diarrhea or any rash. she can be continued on the oral ciprio and flagyl for her diverticulits for total of 10-14 days. all above d/w patient and the hospitalist. Thank you for allowing met o take part in the car4e of this patient.
[2017-01-21] MEDS ORDERED: Lidocaine 1% Inj (20ml) ONE (14:22)
--- NOTE | 2017-01-21 14:37 | PCM.SURG1 ---
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 Patent brachial vein. Post-Operative Diagnosis: Poor venous access Operation Performed: Midline picc placement right brachial vein, 7 cm .Tip near axillary vein. Specimen/Specimens Removed: None Estimated Blood Loss: EBL {In ML}: 2 Blood Products Given: N/A Drains Used: No Drains Post-Op Condition: Fair Date of Surgery/Procedure: 01/21/17 Time of Surgery/Procedure: 14:30
[2017-01-21 16:03] VITALS: BP 140/77; PULSE 78; RESP 20; TEMP 98.1; O2SAT 99
--- NOTE | 2017-01-24 13:11 | VASCULAR ---
PROCEDURE: Date of procedure: 01/21/2017 Procedure: 1. Placement of a right arm midline PICC 2. PICC tip confirmation with spot radiograph and is in axillary vein Medications: 4cc 1 percent lidocaine Total Fluoro time: 41.2 seconds Radiation: 1.85 MGy EBL: 2 cc HISTORY: Poor venous access, renal failure, multiple failed AV graft. TECHNIQUE: Following informed consent and procedure time-out, the patient was placed supine on the interventional table and the right arm prepped and draped in the usual sterile fashion. Ultrasound showed a occlusion of multiple veins in the arm and. The brachial vein is small. Under direct ultrasound guidance, the right brachial vein was accessed with micropuncture technique and a guidewire was advanced into axillary vein. There was difficulty advancing guidewire centrally secondary to venous occlusion. Axillary vein stent is present. The length of the single-lumen 4 [place] PICC was trimmed 7 centimeters and advanced through a peel-away sheath. The PICC was position with tip of PICC confirm a spot radiograph in the proximal axillary vein. The PICC has been blood return. The PICC was flushed. A biopatch and sterile dressing was applied. 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 A midline PICC was placed with tip in the proximal axillary vein. The PICC length is 7 centimeter. The midline catheter is functional. .
== END 2017-01-21 21:45 | DRG 551 ==
LOC: H.ER 17:21 → H.ERHOLD 21:29 → H.MEDSURG1 23:02
PROVIDERS: ADMIT Family Medicine; ATTEND Family Medicine
PROC: 02HV33Z Insertion of Infusion Device into Superior Vena Cava, Percutaneous Approach (ICD-10-PCS; principal; 2017-01-21)
DX: K57.32 Diverticulitis of large intestine without perforation or abscess without bleeding (principal); L89.321 Pressure ulcer of left buttock, stage 1; E11.22 Type 2 diabetes mellitus with diabetic chronic kidney disease; Z94.0 Kidney transplant status; N18.9 Chronic kidney disease, unspecified; N39.0 Urinary tract infection, site not specified; K52.9 Noninfective gastroenteritis and colitis, unspecified; I12.9 Hypertensive chronic kidney disease with stage 1 through stage 4 chronic kidney disease, or unspecified chronic kidney disease; D63.1 Anemia in chronic kidney disease; Z79.4 Long term (current) use of insulin; B96.20 Unspecified Escherichia coli [E. coli] as the cause of diseases classified elsewhere; E83.42 Hypomagnesemia; E83.52 Hypercalcemia; E83.39 Other disorders of phosphorus metabolism; E78.00 Pure hypercholesterolemia, unspecified; E78.5 Hyperlipidemia, unspecified; Z88.1 Allergy status to other antibiotic agents; Z91.041 Radiographic dye allergy status; R53.81 Other malaise

== ENCOUNTER 2017-03-10 12:26 | Inpatient (IN) | payer MEDICAID ==
[2017-03-10 12:26] VITALS: BMI 19.5
[2017-03-10] MEDS ORDERED: Sodium Chloride 0.9% 1,000 ML IV STA ×2 (13:00→15:21)
--- NOTE | 2017-03-10 13:25 | ED PDOC ---
HPI: Abdomen Time Seen by Provider: 03/10/17 12:37 Chief Complaint (Nursing): Abdominal Pain Chief Complaint (Provider): Abdominal pain, lower back pain History Per: Patient History/Exam Limitations: no limitations Onset/Duration Of Symptoms: Days (5) Outside of [place] travel?: No Current Symptoms Are (Timing): Still Present Additional Complaint(s): The patient is a 61yo female, past medical history of renal transplant 11 years ago, diabetes, presents to the ED for evaluation of left lower back pain, worsening for the past 5 days. Patient denies any trauma and reports her pain radiates to the front; patient reports associated nausea and vomiting. She denies any constipation or diarrhea. Patient states she put a pain patch on with no relief. Patient denies any associated -symptoms. She reports chills but denies fever. Patient offers no additional medical complaints. Past Medical History Reviewed: Historical Data, Nursing Documentation, Vital Signs Vital Signs: Last Vital Signs Temp 98.6 F 03/11/17 12:21 Pulse 97 H 03/11/17 12:21 Resp 18 03/11/17 12:21 BP 115/69 03/11/17 12:21 Pulse Ox 97 03/11/17 12:21 - Medical History PMH: Anemia, Diabetes, HTN, Hypercholesterolemia, Chronic Kidney Disease ( kidney transplant) - Surgical History Surgical History: - Family History Family History: States: Unknown Family Hx - Home Medications Home Medications: Ambulatory Orders Medication Instructions Recorded Acetaminophen [Tylenol 325mg tab] 650 mg PO Q4H PRN 01/18/17 Cinacalcet [Sensipar] 30 mg PO DAILY 01/18/17 Sulfamethoxazole/Trimethoprim 1 tab PO MOWEFR 01/18/17 [Bactrim DS Tab] Tacrolimus [Prograf] 5 mg PO BID 01/18/17 amLODIPine [Norvasc] 5 mg PO DAILY 01/18/17 predniSONE [predniSONE Tab] 5 mg PO DAILY 01/18/17 Cranberry Conc/Ascorbic Acid 1 tab PO DAILY 03/10/17 [Cranberry Plus Vitamin C Sftgl] Mycophenolate [Cellcept Cap] 250 mg PO BID 03/10/17 - Allergies Allergies/Adverse Reactions: Allergies Allergy/AdvReac Type Severity Reaction Status Date / Time cefazolin Allergy ITCHING Verified 03/13/16 12:44 iodine Allergy ITCHING Verified 03/13/16 12:44 vancomycin Allergy ITCHING Verified 03/13/16 12:44 Review of Systems ROS Statement: Except As Marked, All Systems Reviewed And Found Negative Constitutional: Positive for: Chills. Negative for: Fever Gastrointestinal: Positive for: Nausea, Vomiting, Abdominal Pain. Negative for : Diarrhea, Constipation Genitourinary Female: Negative for: Dysuria, Frequency, Hematuria Musculoskeletal: Positive for: Back Pain Physical Exam - Reviewed Nursing Documentation Reviewed: Yes Vital Signs Reviewed: Yes - Physical Exam Appears: Negative for: Well (patient appears cachectic) Head Exam: Positive for: ATRAUMATIC, NORMAL INSPECTION, NORMOCEPHALIC Skin: Positive for: Pallor Cardiovascular/Chest: Positive for: Regular Rate, Rhythm Respiratory: Positive for: Normal Breath Sounds. Negative for: Respiratory Distress Gastrointestinal/Abdominal: Positive for: Tenderness (left lower quadrant tenderness). Negative for: Guarding, Rebound Back: Positive for: Other (left upper buttock tenderness) Neurologic/Psych: Positive for: Alert, Oriented. Negative for: Motor/Sensory Deficits - Laboratory Results Result Diagrams: 03/11/17 05:20 03/11/17 05:20 - ECG O2 Sat by Pulse Oximetry: 98 (RA) Pulse Ox Interpretation: Normal Medical Decision Making Medical Decision Making: Time: 1253 Impression: Diverticulitis, UTI, anemia, lower back pain Plan: -- Labs -- CT A/P -- IV NS 125ml/hr -- Morphine 2 mg IV -- Zofran 4 mg IV -- Urinalysis Reassess Time: 1400 Patient resting in room, pending CT AP and urinalysis. Time: [address] AP report and urinalysis. Patient to signed out to Dr. Remy pending imaging results and urine results. Scribe Attestation: Documented by Cydney Lobo acting as a scribe for Ellie Goddard MD. Provider Attestation: All medical record entries made by the Scribe were at my direction and personally dictated by me. I have reviewed the chart and agree that the record accurately reflects my personal performance of the history, physical exam, medical decision making, and the department course for this patient. I have also personally directed, reviewed, and agree with the discharge instructions and disposition. Disposition - Clinical Impression Clinical Impression: Acute diverticulitis, Severe sepsis, UTI (urinary tract infection), Perforated diverticulum of large intestine - Patient ED Disposition Is Patient to be Admitted: Transfer of Care - Disposition Disposition: Transfer of Care Disposition Time: 15:00 Condition: FAIR Patient Signed Over To: Mary Remy Handoff Comments: Pending CT AP and urinalysis
[2017-03-10 13:39] LABS: BASO % 0.1 % (0.0-2.0); EOS % 0.1 % (0.0-4.0); HEMATOCRIT 35.6 % (34.0-47.0); LYMPH % 5.9 % (20.0-40.0); MEAN CELL VOLUME 91.1 fl (81.0-99.0); MEAN CORPUSCULAR HEMOGLOBIN 28.9 pg (27.0-31.0); MEAN CORPUSCULAR HGB CONC 31.8 g/dL (33.0-37.0); MEAN PLATELET VOLUME 7.5 fl (7.2-11.7); MONO # 1.3 K/uL (0.0-0.8); MONO % 7.8 % (0.0-10.0); NEUT # 14.5 K/uL (1.8-7.0); NEUT % 86.1 % (50.0-75.0); NRBC % 0.1 % (0.0-0.0); PLATELET COUNT 212 K/uL (130-400); RED CELL DISTRIBUTION WIDTH 15.7 % (11.5-14.5); WHITE BLOOD COUNT 16.8 K/uL (4.8-10.8)
[2017-03-10 13:44] LABS: ALB/GLOB RATIO 1.1 (1.0-2.1); ALKALINE PHOSPHATASE 94 U/L (38-126); ALT/SGPT 16 U/L (9-52); AST/SGOT 11 U/L (14-36); BILIRUBIN,TOTAL 0.4 mg/dl (0.2-1.3); BLOOD UREA NITROGEN 25 mg/dl (7-17); CALCIUM 12.6 mg/dL (8.4-10.2); CARBON DIOXIDE 24 mmol/L (22-30); CHLORIDE 102 mmol/L (98-107); GFR AFRICAN-AMERICAN > 60; GLUCOSE,RANDOM 187 mg/dL (65-105); POTASSIUM 4.9 MMOL/L (3.6-5.0); SODIUM 135 mmol/l (132-148); TOTAL PROTEIN 6.6 G/DL (6.3-8.2)
[2017-03-10 13:57] LABS: PARTIAL THROMBOPLASTIN TIME 28.4 Seconds (25.6-37.1)
[2017-03-10 14:13] LABS: NEUTROPHIL 76 % (42-75); TOTAL CELLS COUNTED 100
[2017-03-10 14:40] LABS: VENOUS BLOOD GAS BASE EXCESS -1.7 mmol/L (0.0-2.0); VENOUS BLOOD GAS PCO2 37 mmHg (40-60)
--- NOTE | 2017-03-10 15:08 | ED PDOC ---
- Laboratory Results Result Diagrams: 03/10/17 13:10 03/10/17 13:10 - ECG O2 Sat by Pulse Oximetry: 98 (RA) Pulse Ox Interpretation: Normal Medical Decision Making Medical Decision Making: Receiving sign out: Patient signed out to me by Dr. Goddard at [address] AP and urinalysis. 1530 Discussed the case with Dr Villarreal for consult and admission 1545 Case discussed with neurosurgical nurse practitioner Dr Burgess Thomas Attestation: Documented by Cydney Lobo acting as a scribe for Mary Remy MD. Provider Attestation: All medical record entries made by the Scribe were at my direction and personally dictated by me. I have reviewed the chart and agree that the record accurately reflects my personal performance of the history, physical exam, medical decision making, and the department course for this patient. I have also personally directed, reviewed, and agree with the discharge instructions and disposition. Disposition Discussed With Dr.: Bisi Lala Doctor Will See Patient In The: Hospital Counseled Patient/Family Regarding: Studies Performed, Diagnosis - Clinical Impression Clinical Impression: Acute diverticulitis, Severe sepsis, UTI (urinary tract infection), Perforated diverticulum of large intestine - POA Present On Arrival: None - Disposition Disposition: Admitted as In-Patient Disposition Time: 15:30 Condition: FAIR Progress Note - Review of Symptoms Events since last encounter: Time: 1520 CT AP Impression: Findings consistent with diverticulosis and diverticulitis or colitis with questionable giant pseudodiverticulum/diverticulum versus possible abscess arising from the anterior distal margin of the inflamed sigmoid colon abutting the roof of the urinary bladder. . Findings consistent with constipation. Atrophic changes of the [place] kidneys. The right renal transplant kidney with what appears represent small cystic changes in the anterior margin of the transplant parenchyma. Cholelithiasis. Findings discussed with Dr. Remy and at approximately 3:20 p.m. with written down and read back verification. Time: 1530 Case discussed with resident, patient to be admitted with diagnosis of acute diverticulitis, severe sepsis, possible abscess. Patient to be admitted under Dr. Lala. Call placed to Dr. Solorio for a consult. Time: 1552 Second call placed to Dr. Solorio
[2017-03-10] MEDS ORDERED: Ciprofloxacin 400mg/200ml D5W 400 MG/200 ML BAG IVPB STA (15:21)
[2017-03-10] MEDS ORDERED: metroNIDAZOLE 500mg/100ml NS 100 ML IVPB STA (15:22)
--- NOTE | 2017-03-10 15:29 | CT ---
PROCEDURE: CT abdomen pelvis dated 03/10/2017 HISTORY: LLQ pain COMPARISON: Comparison made with prior study 01/18/2017 TECHNIQUE: Contiguous axial images of the abdomen and pelvis. Oral contrast was administered. No IV contrast given. Coronal and Sagittal reformats generated. Radiation dose: Total exam DLP = 196.13 mGy-cm. This CT exam was performed using one or more of the following dose reduction techniques: Automated exposure control, adjustment of the mA and/or kV according to patient size, and/or use of iterative reconstruction technique. FINDINGS: LOWER THORAX: There appears to be some very minor left basilar atelectasis. Lung yung are otherwise clear. No evidence of basilar effusion or pneumothorax. Tiny hiatal hernia. Heart size is within range of normal. No significant pericardial effusion. LIVER: Liver exhibits normal size measuring approximately 13.4 cm in CC dimension. No obvious hepatic mass collection or calcification. . . GALLBLADDER AND BILE DUCTS: Gallbladder is physiologically distended. Intraluminal gallbladder calculi are again noted. No evidence pericholecystic fluid collections. PANCREAS: The pancreas is mildly atrophic and fatty replaced. No pancreatic mass collection or calcification. SPLEEN: Spleen exhibits normal size and attenuation pattern. No splenic mass collection or calcification. . ADRENALS: No adrenal lesions. KIDNEYS AND URETERS: Atrophic changes of the kidneys again noted. There is also a right-sided pelvic transplant kidney with what appears represent 2 or 3 adjacent cysts along the at anterior margin of the transplant kidney. BLADDER: Urinary bladder is incompletely distended which presumably may account for slightly thick-walled appearance. Possibility of a cystitis not excluded. REPRODUCTIVE: Uterus is unremarkable. APPENDIX: Appendix not seen with complete certainty. BOWEL: Evaluation of the bowel is limited due to the lack of oral contrast material. Stomach is incompletely distended which presumably accounts for thick-walled appearance. Visualized loops of small bowel exhibit normal contour and caliber. No evidence of acute mechanical small bowel obstruction. Large amount of stool present within the colon consistent with fecal retention- constipation. . Re- demonstrated are multiple colonic diverticula along the distal descending and sigmoid colon. Wall thickening of distal aspect of the descending and sigmoid colon consistent with acute colitis or diverticulitis. Additionally, questionable giant diverticulum/pseudo diverticulum or possibly abscess with an air-fluid level along the distal aspect anterior aspect of the inflamed sigmoid colon, adjacent to -abutting and just cephalad to the roof of the urinary bladder. PERITONEUM: As above LYMPH NODES: Unremarkable. No enlarged lymph nodes. VASCULATURE: No evidence of abdominal aortic or iliac artery aneurysm. BONES: Re- demonstrated are chronic superior endplate compression deformities of L3 and L1 segments. OTHER FINDINGS: None. IMPRESSION: Impression: Findings consistent with diverticulosis and diverticulitis or colitis with questionable giant pseudodiverticulum/diverticulum versus possible abscess arising from the anterior distal margin of the inflamed sigmoid colon abutting the roof of the urinary bladder. . Findings consistent with constipation. Atrophic changes of the [place] kidneys. The right renal transplant kidney with what appears represent small cystic changes in the anterior margin of the transplant parenchyma. Cholelithiasis. Findings discussed with Dr. Remy and at approximately 3:20 p.m. with written down and read back verification.
[2017-03-10] MEDS ORDERED: Ciprofloxacin 400mg/200ml D5W 400 MG/200 ML BAG IVPB ONE (16:15)
[2017-03-10] MEDS ORDERED: metroNIDAZOLE 500mg/100ml NS 100 ML IVPB ONE (16:15)
[2017-03-10 16:44] LABS: RBC URINE 3 /hpf (0-3); URINE BACTERIA RARE (<OCC); URINE BILIRUBIN NEGATIVE (NEGATIVE); URINE BLOOD NEGATIVE (NEGATIVE); URINE COLOR YELLOW (YELLOW); URINE GLUCOSE (UA) NEG (Normal); URINE KETONE NEGATIVE (NEGATIVE); URINE LEUKOCYTE ESTERASE SMALL Leu/uL (Negative); URINE PROTEIN NEGATIVE (NEGATIVE); URINE UROBILINOGEN 0.2-1.0 mg/dL (0.2-1.0); WBC URINE 20 /hpf (0-5)
--- NOTE | 2017-03-10 17:48 | CP.PCM.HP ---
History of Present Illness - History of Present Illness History of Present Illness: Pleasant 61 YO F w/ PMH of renal transplant 11 years ago, DM, multiple admissions for diverticulitis presents w/ left lower back pain radiating to the front x 5 days. Pt states that she had 2 episodes of non bloody non bilious vomiting yesterday. Denies any constipation or diarrhea. Patient also has a chronic history of lower back pain which has been occurring for some time and states it has been getting worse, denies any falls or trauma to the area recently. She did have a fall about 3 months ago and was worked up in [facility], which did not show any fracture. On patients last admission on 01/18/17 she admitted for diverticulitis and seen by surgery and GI, at that time she was medically treated and was a candidate for surgical intervention. On discharge last time patient was advised to follow up to get a colonoscopy, but patient states she was too weak and was not able to go get it done. Since her previous admission to [facility], she was transferred for [place] for 3 weeks, in which she seemed to be getting better and gaining some weight and now has moved back with her daughter and seems to be getting weaker. As per patients son who was at bedside, the patient lost almost 60 pounds within the last year. PMH: Anemia, CKD ( formally on HD but not after receiving Right kidney transplant in 2004), HTN, DM2, HLD, , HX of falls, Diverticulitis, Recurrent UTI. PSH: Bilateral Upper arm AV fistulas, , Right kidney transplant ( Received HD for 4 to 5 years) Allergies: Cefazolin, Iodine, Vancomycin which causes pruritus. 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 . Atrophic changes of the [place] kidneys. The right renal transplant kidney with what appears represent small cystic changes in the anterior margin of the transplant parenchyma. Present on Admission - Present on Admission Any Indicators Present on Admission: No History of DVT/PE: No Urinary Catheter: No Decubitus Ulcer Present: No Review of Systems - Review of Systems All systems: reviewed and no additional remarkable complaints except Past Patient History - Infectious Disease Hx of Infectious Diseases: None - Past Medical History & Family History Past Medical History?: Yes - Past Social History Smoking Status: Never Smoked - CARDIAC Hx Hypercholesterolemia: Yes Hx Hypertension: Yes - PULMONARY Hx Respiratory Disorders: No - NEUROLOGICAL Hx Neurological Disorder: No - HEENT Hx HEENT Problems: No - RENAL Hx Chronic Kidney Disease: Yes (kidney transplant) - ENDOCRINE/METABOLIC Hx Endocrine Disorders: Yes Hx Diabetes Mellitus Type 2: Yes - HEMATOLOGICAL/ONCOLOGICAL Hx Anemia: Yes - INTEGUMENTARY Hx Dermatological Problems: No - MUSCULOSKELETAL/RHEUMATOLOGICAL Hx Falls: Yes - GASTROINTESTINAL Hx Gastrointestinal Disorders: Yes Hx Colitis: Yes - GENITOURINARY/GYNECOLOGICAL Hx Genitourinary Disorders: Yes (UTI) Hx Urinary Tract Infection: Yes - PSYCHIATRIC Hx Psychophysiologic Disorder: No Hx Substance Use: No - SURGICAL HISTORY Hx Surgeries: Yes Hx Arteriovenous Shunt: Yes Hx Section: Yes (x2) Hx Vascular Access Device: Yes Other/Comment: RIGHT KIDNEY TRANSPLANT - ANESTHESIA Hx Anesthesia: Yes Hx Anesthesia Reactions: No Hx Malignant Hyperthermia: No Meds Allergies/Adverse Reactions: Allergies Allergy/AdvReac Type Severity Reaction Status Date / Time cefazolin Allergy ITCHING Verified 03/13/16 12:44 iodine Allergy ITCHING Verified 03/13/16 12:44 vancomycin Allergy ITCHING Verified 03/13/16 12:44 Physical Exam - Constitutional Appears: Cachectic - Head Exam Head Exam: ATRAUMATIC, NORMAL INSPECTION, NORMOCEPHALIC - Eye Exam Eye Exam: EOMI, Normal appearance, PERRL Pupil Exam: NORMAL ACCOMODATION, PERRL - Respiratory Exam Respiratory Exam: Clear to Auscultation Bilateral, NORMAL BREATHING PATTERN. absent: Rhonchi, Wheezes - Cardiovascular Exam Cardiovascular Exam: REGULAR RHYTHM, +S1, +S2 - GI/Abdominal Exam GI & Abdominal Exam: Soft, Tenderness Additional comments: LLQ tenderness to deep palpation, mild guarding - Back Exam Back exam: absent: CVA tenderness (L), CVA tenderness (R) Additional comments: NEgative sciatica - Neurological Exam Neurological exam: Alert, CN II-XII Intact, Oriented x3 - Skin Skin Exam: Dry, Warm Results - Vital Signs Recent Vital Signs: Last Vital Signs Temp 98.7 F 03/10/17 16:41 Pulse 85 03/10/17 16:41 Resp 19 03/10/17 16:41 BP 128/67 03/10/17 16:41 Pulse Ox 98 03/10/17 16:41 - Labs Result Diagrams: 03/10/17 13:10 03/10/17 13:10 Labs: Laboratory Results - last 24 hr 03/10/17 16:11 Urine Color Yellow Urine Clarity Slighty-cloudy Urine pH 5.0 Ur Specific Paige 1.014 Urine Protein Negative Urine Glucose (UA) Neg Urine Ketones Negative Urine Blood Negative Urine Nitrate Positive H Urine Bilirubin Negative Urine Urobilinogen 0.2-1.0 Ur Leukocyte Esterase Small Urine RBC (Auto) 3 Urine Microscopic WBC 20 H Ur Squamous Epith Cells 4 Urine Bacteria Rare Hyaline Casts 0-2 Assessment & Plan - Assessment and Plan (Free Text) Assessment: 61 YO F w/ PMH of renal transplant 11 years ago, DM, multiple admissions for diverticulitis presents w/ left lower back pain radiating to left lower quadrant of the abdomen. 1) Diverticulitis - NPO - WBC: 16.8 w/ a left shift - Admit to tele - CT Abdo: Findings consistent with diverticulosis and diverticulitis or collitis with questionable giant pseudodiverticulum/ diverticulum vs possible abscess arising from the anterior distal margin of the inflamed sigmoid colon abutting the roof of the urinary bladder. - Cipro and Flagyl dose received in ER - Meropenem 1gm Q12 - Pain controlled with morphine - Nausea and vomiting controlled with Reglan - IV fluids - Surgery consult appreciated 2) Hypercalcemia - Likely secondary to CKD - Ca+ 12.6 -Continue w/ Cinacalet 30 mg PO daily - IV hydration - F/U w/ morning Ca, Mg, Phos - Dr. Glez nephalba consulted 3) CKD - BUN:25 Creatinine: .7 - F/U w/ morning Mg and Phos - Dr. Newton Gray has been consulted - Continue IV hydration 4) DM2 - Currently patient not on treatment - Last HBA1C on 12/18/16 was: 7.3 - F/U w/ HBA1C 5) Chronic UTI - H/O ESBL - Showed positive for nitrates and increased Urine WBC - PT takes Bactrim DS M- W- F for prophylaxis - Meropenum 1 gm Q12 - F/U w/ C&S 6) Prophylaxis GI: PPI and probiotics on board DVT Prophylaxis: SCD
--- NOTE | 2017-03-10 21:07 | CP.PCM.CON ---
<Rene Bolivar - Last Filed: 03/10/17 20:52> History of Present Illness - History of Present Illness History of Present Illness: General Surgery Re: acute diverticulitis, possible abscess HPI: 61F well known to this service presents w/ left lower abd/flank and back pain for 1 week. Today she had 2 episodes of NBNB emesis. Pt has had diverticulitis in the past and also had a fall 3 months ago on that side. + chills x 1 week. Denies Fever, SOB, chest pain, constipation, diarrhea, BRBPR, dysuria. Her last admission on 01/18/17 was for diverticulitis and seen by surgery and GI, at that time she was medically treated and the patient was not a candidate for surgical intervention. OP colonoscopy was recommended PMH: Anemia, CKD with prior HD now with Right kidney transplant, Chronic back pain, HTN, DM, HLD, Hx of falls, Diverticulitis, Recurrent UTI. PSH: Bilateral UE AVFs, x2, Right kidney transplant in 2004 SH: No tobacco, No EtOH, No drug use All: Cefazolin, Iodine, Vancomycin Meds: See MAR Review of Systems - Review of Systems All systems: reviewed and no additional remarkable complaints except (as per HPI ) Past Patient History - Infectious Disease Hx of Infectious Diseases: None - Past Medical History & Family History Past Medical History?: Yes - Past Social History Smoking Status: Never Smoked - CARDIAC Hx Hypercholesterolemia: Yes Hx Hypertension: Yes - PULMONARY Hx Respiratory Disorders: No - NEUROLOGICAL Hx Neurological Disorder: No - HEENT Hx HEENT Problems: No - RENAL Hx Chronic Kidney Disease: Yes (kidney transplant) - ENDOCRINE/METABOLIC Hx Endocrine Disorders: Yes Hx Diabetes Mellitus Type 2: Yes - HEMATOLOGICAL/ONCOLOGICAL Hx Anemia: Yes - INTEGUMENTARY Hx Dermatological Problems: No - MUSCULOSKELETAL/RHEUMATOLOGICAL Hx Falls: Yes - GASTROINTESTINAL Hx Gastrointestinal Disorders: Yes Hx Colitis: Yes - GENITOURINARY/GYNECOLOGICAL Hx Genitourinary Disorders: Yes (UTI) Hx Urinary Tract Infection: Yes - PSYCHIATRIC Hx Psychophysiologic Disorder: No Hx Substance Use: No - SURGICAL HISTORY Hx Surgeries: Yes Hx Arteriovenous Shunt: Yes Hx Section: Yes (x2) Hx Vascular Access Device: Yes Other/Comment: RIGHT KIDNEY TRANSPLANT - ANESTHESIA Hx Anesthesia: Yes Hx Anesthesia Reactions: No Hx Malignant Hyperthermia: No Meds Allergies/Adverse Reactions: Allergies Allergy/AdvReac Type Severity Reaction Status Date / Time cefazolin Allergy ITCHING Verified 03/13/16 12:44 iodine Allergy ITCHING Verified 03/13/16 12:44 vancomycin Allergy ITCHING Verified 03/13/16 12:44 - Medications Medications: Current Medications Acetaminophen (Tylenol 325mg Tab) 650 mg PO Q4H PRN PRN Reason: Temp >100 Amlodipine Besylate (Norvasc) 5 mg PO DAILY [facility] Cinacalcet (Sensipar) 30 mg PO DAILY [facility] Home Med (Tacrolimus [Prograf]) 5 mg PO BID [facility] Sodium Chloride (Sodium Chloride 0.9%) 1,000 mls @ 125 mls/hr IV .Q8H STA Stop: 03/10/17 20:59 Last Admin: 03/10/17 13:18 Dose: 125 mls/hr Mycophenolate Mofetil (Cellcept Cap) 250 mg PO BID [facility] Pantoprazole Sodium (Protonix Ec Tab) 40 mg PO DAILY [facility] Prednisone (Prednisone Tab) 5 mg PO DAILY [facility] Saccharomyces Boulardii (Florastor) 250 mg PO BID [facility] Trimethoprim/Sulfamethoxazole (Bactrim Ds Tab) 1 tab PO MOWEFR [facility] Physical Exam - Constitutional Appears: Non-toxic, No Acute Distress - Head Exam Head Exam: ATRAUMATIC, NORMOCEPHALIC - Eye Exam Eye Exam: EOMI. absent: Scleral icterus - ENT Exam ENT Exam: Mucous Membranes Dry Additional comments: trachea midline - Respiratory Exam Respiratory Exam: NORMAL BREATHING PATTERN. absent: Respiratory Distress - Cardiovascular Exam Cardiovascular Exam: RRR, +S1, +S2 - GI/Abdominal Exam GI & Abdominal Exam: Guarding (mild in LLQ), Soft, Tenderness (in LLQ and suprapubic area). absent: Distended, Firm, Rigid - Rectal Exam Rectal Exam: Deferred - Extremities Exam Extremities exam: Positive for: normal capillary refill. Negative for: calf tenderness, pedal edema - Back Exam Back exam: absent: CVA tenderness (L), CVA tenderness (R) - Neurological Exam Neurological exam: Alert, Oriented x3 - Psychiatric Exam Psychiatric exam: Normal Affect, Normal Mood - Skin Skin Exam: Dry, Warm Results - Vital Signs Recent Vital Signs: Last Vital Signs Temp 98.7 F 03/10/17 16:41 Pulse 85 03/10/17 16:41 Resp 19 03/10/17 16:41 BP 128/67 03/10/17 16:41 Pulse Ox 98 03/10/17 17:49 - Labs Result Diagrams: 03/10/17 13:10 03/10/17 13:10 Labs: Laboratory Results - last 24 hr 03/10/17 16:11 Urine Color Yellow Urine Clarity Slighty-cloudy Urine pH 5.0 Ur Specific [place] 1.014 Urine Protein Negative Urine Glucose (UA) Neg Urine Ketones Negative Urine Blood Negative Urine Nitrate Positive H Urine Bilirubin Negative Urine Urobilinogen 0.2-1.0 Ur Leukocyte Esterase Small Urine RBC (Auto) 3 Urine Microscopic WBC 20 H Ur Squamous Epith Cells 4 Urine Bacteria Rare Hyaline Casts 0-2 - Imaging and Cardiology CT scan - abdomen Status: Image reviewed by me, Report reviewed by me Assessment & Plan - Assessment and Plan (Free Text) Assessment: 61F with acute diverticulitis and possible abscess Plan: NPO IVF Abx Pain control D/W Dr. Eleni Bolivar PGY4 <Jean Claude Knowles - Last Filed: 03/17/17 18:17> Meds - Medications Medications: Current Medications Acetaminophen (Tylenol 325mg Tab) 650 mg PO Q4H PRN PRN Reason: Temp >100 Amlodipine Besylate (Norvasc) 5 mg PO DAILY [facility] Last Admin: 03/17/17 09:08 Dose: 5 mg Bisacodyl (Dulcolax) 5 mg PO DAILY PRN PRN Reason: Constipation Cinacalcet (Sensipar) 30 mg PO DAILY [facility] Last Admin: 03/17/17 09:08 Dose: 30 mg Diphenhydramine HCl (Benadryl) 25 mg IVP Q6 PRN PRN Reason: Allergy symptoms Docusate Sodium (Colace) 100 mg PO BID [facility] Last Admin: 03/17/17 16:01 Dose: Not Given Home Med (Tacrolimus [Prograf]) 5 mg PO BID [facility] Last Admin: 03/17/17 16:00 Dose: 5 mg Meropenem 1 gm/ Sodium (Chloride) 100 mls @ 100 mls/hr IVPB Q12 [facility] Last Admin: 03/17/17 09:05 Dose: 100 mls/hr Iron Sucrose 100 mg/ Sodium (Chloride) 105 mls @ 105 mls/hr IVPB DAILY [facility] Stop: 03/18/17 09:01 Last Admin: 03/17/17 11:34 Dose: 105 mls/hr Lidocaine (Lidoderm) 1 ea TD DAILY [facility] Last Admin: 03/17/17 09:05 Dose: 1 ea Metoclopramide HCl (Reglan) 10 mg IVP Q6 PRN PRN Reason: Nausea/Vomiting Metronidazole (Flagyl) 500 mg PO Q8 [facility] Last Admin: 03/17/17 16:00 Dose: 500 mg Mycophenolate Mofetil (Cellcept Cap) 250 mg PO BID [facility] Last Admin: 03/17/17 16:01 Dose: 250 mg Ondansetron HCl (Zofran Inj) 4 mg IVP Q4 PRN PRN Reason: Nausea/Vomiting Last Admin: 03/15/17 15:46 Dose: 4 mg Pantoprazole Sodium (Protonix Ec Tab) 40 mg PO DAILY [facility] Last Admin: 03/17/17 09:14 Dose: 40 mg Prednisone (Prednisone Tab) 5 mg PO DAILY [facility] Last Admin: 03/17/17 09:14 Dose: 5 mg Saccharomyces Boulardii (Florastor) 250 mg PO BID [facility] Last Admin: 03/17/17 16:00 Dose: 250 mg Sennosides (Senokot Tab) 17.2 mg PO HS [facility] Last Admin: 03/16/17 22:26 Dose: 17.2 mg Tramadol HCl (Ultram) 50 mg PO Q6 PRN PRN Reason: Pain, severe (8-10) Last Admin: 03/17/17 15:58 Dose: 50 mg Results - Vital Signs Recent Vital Signs: Last Vital Signs Temp 98.3 F 03/17/17 16:11 Pulse 94 H 03/17/17 16:11 Resp 18 03/17/17 16:11 BP 131/75 03/17/17 16:11 Pulse Ox 99 03/17/17 16:11 - Labs Result Diagrams: 03/17/17 05:30 03/17/17 05:30 Labs: Laboratory Results - last 24 hr 03/16/17 03/17/17 03/17/17 21:39 05:16 05:30 WBC 6.7 RBC 3.77 L Hgb 10.8 L Hct 33.8 L MCV 89.7 MCH 28.8 MCHC 32.1 L RDW 15.5 H Plt Count 248 Sodium Potassium Chloride Carbon Dioxide Anion Gap BUN Creatinine Est GFR ( Amer) Est GFR (Non-Af Amer) POC Glucose (mg/dL) 101 82 Random Glucose Calcium 03/17/17 03/17/17 03/17/17 05:30 11:30 16:12 WBC RBC Hgb Hct MCV MCH MCHC RDW Plt Count Sodium 132 Potassium 4.6 Chloride 99 Carbon Dioxide 25 Anion Gap 12 BUN 17 Creatinine 1.3 H Est GFR ( Amer) 51 Est GFR (Non-Af Amer) 42 POC Glucose (mg/dL) 88 185 H Random Glucose 88 Calcium 11.8 H Attending/Attestation - Attestation I have personally seen and examined this patient.: Yes I have fully participated in the care of the patient.: Yes I have reviewed all pertinent clinical information: Yes Notes (Text): 03/17/17 18:15 Pt was seen and examined at bedside Agree with above note and assessment Pt with Diverticulitis with possible abscess Tender in LLQ Labs and radiology reviewed C/w current mx IV antibiotics NPO, IVF Plan d.w pt in detail Risk and benefit explained in detail.
[2017-03-10] MEDS ORDERED: Meropenem 500 MG in Sodium Chloride 0.9% 100 ML IVPB SCH (21:30)
[2017-03-10] MEDS: Meropenem 1 GM in Sodium Chloride 0.9% 100 ML IVPB SCH (23:17)
[2017-03-11 07:04] LABS: MEAN CELL VOLUME 91.3 fl (81.0-99.0); MEAN CORPUSCULAR HEMOGLOBIN 29.2 pg (27.0-31.0); RED CELL DISTRIBUTION WIDTH 15.6 % (11.5-14.5); WHITE BLOOD COUNT 17.4 K/uL (4.8-10.8)
[2017-03-11 07:32] LABS: BLOOD UREA NITROGEN 23 mg/dl (7-17); CALCIUM 12.1 mg/dL (8.4-10.2); CARBON DIOXIDE 25 mmol/L (22-30); CHLORIDE 101 mmol/L (98-107); GFR AFRICAN-AMERICAN > 60; GLUCOSE,RANDOM 140 mg/dL (65-105); MAGNESIUM 1.2 MG/DL (1.6-2.3); SODIUM 136 mmol/l (132-148)
--- NOTE | 2017-03-11 07:43 | CP.PCM.PN ---
<JaironCece - Last Filed: 03/11/17 07:40> Subjective - Date & Time of Evaluation Date of Evaluation: 03/11/17 Time of Evaluation: 07:40 - Subjective Subjective: General Surgery - Dr. Knowles Pt S&E. Pt was reportedly vomiting overnight, yellowish fluid, this morning no further vomiting. She complaints of lower abdominal pain, unchanged. No F/C, SOB/Cp. Objective - Vital Signs/Intake and Output Vital Signs (last 24 hours): Temp Pulse Resp BP Pulse Ox 98.7 F 99 H 18 118/67 99 03/11/17 05:00 03/11/17 05:00 03/11/17 05:00 03/11/17 05:00 03/11/17 05:00 - Medications Medications: Current Medications Acetaminophen (Tylenol 325mg Tab) 650 mg PO Q4H PRN PRN Reason: Temp >100 Amlodipine Besylate (Norvasc) [address] [facility] Cinacalcet (Sensipar) [address] [facility] Home Med (Tacrolimus [Prograf]) [address] [facility] Meropenem 1 gm/ Sodium (Chloride) 100 mls @ 100 mls/hr IVPB Q12 [facility] Last Admin: 03/10/17 23:17 Dose: 100 mls/hr Metoclopramide HCl (Reglan) 10 mg IVP Q6 PRN PRN Reason: Nausea/Vomiting Morphine Sulfate (Morphine) 2 mg IVP Q6 PRN PRN Reason: Pain, moderate (4-7) Morphine Sulfate (Morphine) 1 mg IVP Q6 PRN PRN Reason: Pain, Mild (1-3) Mycophenolate Mofetil (Cellcept Cap) [address] [facility] Last Admin: 03/10/17 23:54 Dose: 250 mg Pantoprazole Sodium (Protonix Ec Tab) [address] [facility] Prednisone (Prednisone Tab) [address] [facility] Saccharomyces Boulardii (Florastor) [address] [facility] Trimethoprim/Sulfamethoxazole (Bactrim Ds Tab) [address] [facility] - Labs Labs: 03/11/17 05:20 03/11/17 05:20 PT 12.5 Seconds (9.8-13.1) 03/10/17 13:10 INR 1.2 (0.9-1.2) 03/10/17 13:10 APTT 28.4 Seconds (25.6-37.1) 03/10/17 13:10 - Constitutional Appears: No Acute Distress - Head Exam Head Exam: ATRAUMATIC, NORMAL INSPECTION, NORMOCEPHALIC - Eye Exam Eye Exam: Normal appearance - Respiratory Exam Respiratory Exam: NORMAL BREATHING PATTERN. absent: Respiratory Distress - GI/Abdominal Exam GI & Abdominal Exam: Firm, Guarding (involuntary), Soft, Tenderness (LLQ). absent: Distended, Rigid - Neurological Exam Neurological Exam: Alert, Oriented x3 - Psychiatric Exam Psychiatric exam: Normal Affect, Normal Mood - Skin Skin Exam: Dry, Intact Assessment and Plan - Assessment and Plan (Free Text) Assessment: 61F with acute diverticulitis and possible abscess Plan: -Continue NPO, IVF, Pain control -IV Abx -F/U AM Labs -May need stool softeners/poss. enema for retained stool -No plans for surgical intervention at this time DW Dr. Eleni De La O PGY3 <Jean Claude Knowles B - Last Filed: 03/17/17 18:19> Objective - Vital Signs/Intake and Output Vital Signs (last 24 hours): Temp Pulse Resp BP Pulse Ox 98.3 F 94 H 18 131/75 99 03/17/17 16:11 03/17/17 16:11 03/17/17 16:11 03/17/17 16:11 03/17/17 16:11 Intake and Output: 03/17/17 03/17/17 06:59 18:59 Intake Total 960 Balance 960 - Medications Medications: Current Medications Acetaminophen (Tylenol 325mg Tab) 650 mg PO Q4H PRN PRN Reason: Temp >100 Amlodipine Besylate (Norvasc) [address] [facility] Last Admin: 03/17/17 09:08 Dose: 5 mg Bisacodyl (Dulcolax) 5 mg PO DAILY PRN PRN Reason: Constipation Cinacalcet (Sensipar) [address] [facility] Last Admin: 03/17/17 09:08 Dose: 30 mg Diphenhydramine HCl (Benadryl) 25 mg IVP Q6 PRN PRN Reason: Allergy symptoms Docusate Sodium (Colace) [address] [facility] Last Admin: 03/17/17 16:01 Dose: Not Given Home Med (Tacrolimus [Prograf]) [address] [facility] Last Admin: 03/17/17 16:00 Dose: 5 mg Meropenem 1 gm/ Sodium (Chloride) 100 mls @ 100 mls/hr IVPB Q12 [facility] Last Admin: 03/17/17 09:05 Dose: 100 mls/hr Iron Sucrose 100 mg/ Sodium (Chloride) 105 mls @ 105 mls/hr IVPB DAILY [facility] Stop: 03/18/17 09:01 Last Admin: 03/17/17 11:34 Dose: 105 mls/hr Lidocaine (Lidoderm) [address] [facility] Last Admin: 03/17/17 09:05 Dose: 1 ea Metoclopramide HCl (Reglan) 10 mg IVP Q6 PRN PRN Reason: Nausea/Vomiting Metronidazole (Flagyl) [address] [facility] Last Admin: 03/17/17 16:00 Dose: 500 mg Mycophenolate Mofetil (Cellcept Cap) [address] [facility] Last Admin: 03/17/17 16:01 Dose: 250 mg Ondansetron HCl (Zofran Inj) 4 mg IVP Q4 PRN PRN Reason: Nausea/Vomiting Last Admin: 03/15/17 15:46 Dose: 4 mg Pantoprazole Sodium (Protonix Ec Tab) [address] [facility] Last Admin: 03/17/17 09:14 Dose: 40 mg Prednisone (Prednisone Tab) [address] [facility] Last Admin: 03/17/17 09:14 Dose: 5 mg Saccharomyces Boulardii (Florastor) [address] [facility] Last Admin: 03/17/17 16:00 Dose: 250 mg Sennosides (Senokot Tab) 17.[address] [facility] Last Admin: 03/16/17 22:26 Dose: 17.2 mg Tramadol HCl (Ultram) 50 mg PO Q6 PRN PRN Reason: Pain, severe (8-10) Last Admin: 03/17/17 15:58 Dose: 50 mg - Labs Labs: 03/17/17 05:30 03/17/17 05:30 PT 12.5 Seconds (9.8-13.1) 03/10/17 13:10 INR 1.2 (0.9-1.2) 03/10/17 13:10 APTT 28.4 Seconds (25.6-37.1) 03/10/17 13:10 Attending/Attestation - Attestation I have personally seen and examined this patient.: Yes I have fully participated in the care of the patient.: Yes I have reviewed all pertinent clinical information, including history, physical exam and plan: Yes Notes (Text): 03/17/17 18:19 Pt was seen and examined at bedside Agree with above note and assessment Pt with Diverticulitis with possible abscess C/w current mx IV antibiotics NPO, IVF
--- NOTE | 2017-03-11 08:32 | RAD ---
PROCEDURE: Radiographs of the Lumbar Spine. HISTORY: back pain COMPARISON: Lumbar spine x-ray 12/18/2016 FINDINGS: BONES: Annual, base appears rotated towards the right at least to the level of the thoracic spine and somewhat at the lumbar spine as well. There is a mild reversal of the upper lumbar curvature with advanced multilevel spondylosis again appreciated throughout the mid thoracic spine. There is a borderline compression fracture of the L3 vertebral body which appears slightly diminished in height when compared to prior examination with increased sclerosis at the upper endplate. Remaining vertebral bodies appear normal in height overall. No spondylolisthesis. DISC SPACES: Intervertebral disc heights are stable including diminished height L3-4. OTHER FINDINGS: None. IMPRESSION: Possible limited compression fracture of L3 vertebral body which can be better evaluated by MRI as clinically warranted. There is a mild reversal of the upper cervical curvature is well. No apparent spondylolisthesis.
[2017-03-11] MEDS: PROGRAF 5 MG PO SCH ×2 (09:00→17:29)
[2017-03-11] MEDS: Meropenem 1 GM in Sodium Chloride 0.9% 100 ML IVPB SCH ×2 (09:39→20:16)
[2017-03-11] MEDS: Saccharomyces Boulardi 250 mg Cap PO SCH ×2 (09:41→17:28)
[2017-03-11] MEDS: Pantoprazole 40 mg EC Tab PO SCH (09:41)
--- NOTE | 2017-03-11 10:09 | CP.PCM.PN ---
Subjective - Date & Time of Evaluation Date of Evaluation: 03/11/17 Time of Evaluation: 07:00 - Subjective Subjective: Patient seen and examined today at bedside, lying on bed in not acute distress, reports feeling much better although still has abdominal pain now 5/10 on LLQ, no radiated, constant, no aggravating factors. Denies F/N/V today, no diarrhea or constipation, no chest pain or palpitation. Denies urinary symptoms. Objective - Vital Signs/Intake and Output Vital Signs (last 24 hours): Temp Pulse Resp BP Pulse Ox 98.1 F 96 H 18 112/63 98 03/11/17 08:09 03/11/17 09:40 03/11/17 08:09 03/11/17 09:40 03/11/17 08:09 - Medications Medications: Current Medications Acetaminophen (Tylenol 325mg Tab) 650 mg PO Q4H PRN PRN Reason: Temp >100 Amlodipine Besylate (Norvasc) 5 mg PO DAILY [facility] Last Admin: 03/11/17 09:40 Dose: 5 mg Cinacalcet (Sensipar) 30 mg PO DAILY [facility] Last Admin: 03/11/17 09:41 Dose: 30 mg Docusate Sodium (Colace) 100 mg PO BID [facility] Last Admin: 03/11/17 09:40 Dose: 100 mg Home Med (Tacrolimus [Prograf]) 5 mg PO BID [facility] Meropenem 1 gm/ Sodium (Chloride) 100 mls @ 100 mls/hr IVPB Q12 [facility] Last Admin: 03/11/17 09:39 Dose: 100 mls/hr Metoclopramide HCl (Reglan) 10 mg IVP Q6 PRN PRN Reason: Nausea/Vomiting Morphine Sulfate (Morphine) 2 mg IVP Q6 PRN PRN Reason: Pain, moderate (4-7) Morphine Sulfate (Morphine) 1 mg IVP Q6 PRN PRN Reason: Pain, Mild (1-3) Mycophenolate Mofetil (Cellcept Cap) 250 mg PO BID [facility] Last Admin: 03/11/17 09:41 Dose: 250 mg Pantoprazole Sodium (Protonix Ec Tab) 40 mg PO DAILY [facility] Last Admin: 03/11/17 09:41 Dose: 40 mg Prednisone (Prednisone Tab) 5 mg PO DAILY [facility] Last Admin: 03/11/17 09:41 Dose: 5 mg Saccharomyces Boulardii (Florastor) 250 mg PO BID [facility] Last Admin: 03/11/17 09:41 Dose: 250 mg Trimethoprim/Sulfamethoxazole (Bactrim Ds Tab) 1 tab PO MOWEFR [facility] - Labs Labs: 03/11/17 05:20 03/11/17 05:20 PT 12.5 Seconds (9.8-13.1) 03/10/17 13:10 INR 1.2 (0.9-1.2) 03/10/17 13:10 APTT 28.4 Seconds (25.6-37.1) 03/10/17 13:10 - Constitutional Appears: Well, No Acute Distress, Cachectic - Head Exam Head Exam: ATRAUMATIC, NORMOCEPHALIC - Eye Exam Eye Exam: EOMI, Normal appearance, PERRL. absent: Nystagmus - Neck Exam Neck Exam: Full ROM. absent: Lymphadenopathy, Thyromegaly - Respiratory Exam Respiratory Exam: Clear to Ausculation Bilateral, NORMAL BREATHING PATTERN. absent: Rales, Rhonchi, Wheezes - Cardiovascular Exam Cardiovascular Exam: REGULAR RHYTHM, +S1, +S2. absent: Murmur - GI/Abdominal Exam GI & Abdominal Exam: Soft, Tenderness (LLQ moderated pain on deep palpation.), Normal Bowel Sounds. absent: Organomegaly - Extremities Exam Extremities Exam: Full ROM. absent: Calf Tenderness, Joint Swelling, Pedal Edema - Back Exam Back Exam: NORMAL INSPECTION. absent: CVA tenderness (L), CVA tenderness (R), vertebral tenderness - Neurological Exam Neurological Exam: Alert, CN II-XII Intact, Oriented x3 - Psychiatric Exam Psychiatric exam: Normal Mood - Skin Skin Exam: Dry, Pallor, Warm Assessment and Plan - Assessment and Plan (Free Text) Assessment: 61 YO F w/ PMH of renal transplant 11 years ago, DM, multiple admissions for diverticulitis presents w/ left lower back pain radiating to left lower quadrant of the abdomen. 1) Diverticulitis - NPO - WBC: 17.4 today - CT Abdo: Findings consistent with diverticulosis and diverticulitis or collitis with questionable giant pseudodiverticulum/ diverticulum vs possible abscess arising from the anterior distal margin of the inflamed sigmoid colon abutting the roof of the urinary bladder. - Meropenem 1gm Q12 - Pain controlled with morphine - Nausea and vomiting controlled with Reglan - IV fluids - Surgery consult Dr. Knowles: No plans for surgical intervention at this time. - F/U with ID -Dietitian referral for fiber diet. - stool C. Diff ordered 2) Hypercalcemia - Likely secondary to CKD - Ca+ 12.1 today - Continue w/ Cinacalet 30 mg PO daily - IV hydration - Dr. Newton gray consulted - F/U Ca tomorrow 3) CKD - BUN:25 Creatinine: 0.8, Mg 1.2, Ph 3.0 - Dr. Newton Gray has been consulted - Continue IV hydration - Creatinine clearance today 43 - F/U Creatinine clearance daily. 4) DM2 - Currently patient not on treatment - Last HBA1C on 12/18/16 was: 7.3 - F/U w/ HBA1C 5) Chronic UTI - H/O ESBL - Showed positive for nitrates and increased Urine WBC - PT takes Bactrim DS M- W- F for prophylaxis - Meropenum 1 gm Q12 - Urine cx Gram negative selam 6) Prophylaxis GI: PPI and probiotics on board DVT Prophylaxis: SCD
[2017-03-11] MEDS ORDERED: Sodium Chloride 0.9% 1,000 ML IV SCH (11:45)
--- NOTE | 2017-03-11 13:09 | CARD ---
APPROVED REPORT EKG Measurement Heart [id number] ID [id number] <Conclusion> Normal sinus rhythm Nonspecific T wave abnormality Abnormal ECG
[2017-03-11] MEDS: Sodium Chloride 0.9% 1,000 ML IV SCH ×2 (13:14→23:19)
--- NOTE | 2017-03-11 13:19 | CP.PCM.CON ---
History of Present Illness - History of Present Illness History of Present Illness: Infectious Disease Consult Note- asked to see this patient for UTI and diverticulitis and help with antibiotic management. HPI- Patient known to me from her previous admission in 12/2016. Patient is a pleasant 61 year old female with PMH of DM II, CKD s/p right kidney transplant 11 years ago, HTN, diverticulitis and h/o recurrent UTI who was admitted yesterday with c/o left lower abdominal pain and left flank pain . PAtietn also states she had nausea. She states she has been having constipation for last few days and thought her abd pain is secondary to this. On admission he has been found to have GNR prelim urine cx and CT abdomen has been reported as diverticulitis and ? pseudodiverticulum ? abscess around sigmoid region as per CT report. Pt. also states she was experiencing mild dysurea past 2 days, denies any fever or chills. Pt. states she feels better now since they gave her an enema here and she just had BM . last admission she was also found to have ESBL uti and was treated with meropenam and also had diverticulitis for which she was treated with cipro and flagyl and was d/c to [place] for completion of her antibiotics and was also on probiotics. PMH: Anemia, CKD ( formally on HD but not after receiving Right kidney transplant in 2004), HTN, DM2, HLD, , HX of falls, Diverticulitis, Recurrent UTI. PSH: Bilateral Upper arm AV fistulas, , Right kidney transplant ( Received HD for 4 to 5 years) Allergies: Cefazolin, Iodine, Vancomycin which causes pruritus. 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, Currently living at home with daughter, No tobacco, NO alcohol, NO illicit drug use Family Hx: Aunt (Asthma), Dad (Renal Failure), Brother x2 ( Healthy) Review of Systems - Review of Systems Review of Systems: ROS- denies any fever or chills, denies any OJEDA, denies any cough, denies any sob, denies any chest pain, + lower abdominal pain to left flank pain but has improved post having BM today, dysurea at home but denies it now had nausea at home but denies it now Past Patient History - Infectious Disease Hx of Infectious Diseases: None - Past Medical History & Family History Past Medical History?: Yes - Past Social History Smoking Status: Never Smoked Home Situation {Lives}: With Family - CARDIAC Hx Hypercholesterolemia: Yes Hx Hypertension: Yes - PULMONARY Hx Respiratory Disorders: No - NEUROLOGICAL Hx Neurological Disorder: No - HEENT Hx HEENT Problems: No - RENAL Hx Chronic Kidney Disease: Yes (kidney transplant) - ENDOCRINE/METABOLIC Hx Endocrine Disorders: Yes Hx Diabetes Mellitus Type 2: Yes - HEMATOLOGICAL/ONCOLOGICAL Hx Anemia: Yes - INTEGUMENTARY Hx Dermatological Problems: No - MUSCULOSKELETAL/RHEUMATOLOGICAL Hx Falls: Yes - GASTROINTESTINAL Hx Gastrointestinal Disorders: Yes Hx Colitis: Yes - GENITOURINARY/GYNECOLOGICAL Hx Genitourinary Disorders: Yes (UTI) Hx Urinary Tract Infection: Yes - PSYCHIATRIC Hx Psychophysiologic Disorder: No Hx Substance Use: No - SURGICAL HISTORY Hx Surgeries: Yes Hx Arteriovenous Shunt: Yes Hx Section: Yes (x2) Hx Vascular Access Device: Yes Other/Comment: RIGHT KIDNEY TRANSPLANT - ANESTHESIA Hx Anesthesia: Yes Hx Anesthesia Reactions: No Hx Malignant Hyperthermia: No Meds Allergies/Adverse Reactions: Allergies Allergy/AdvReac Type Severity Reaction Status Date / Time cefazolin Allergy ITCHING Verified 03/13/16 12:44 iodine Allergy ITCHING Verified 03/13/16 12:44 vancomycin Allergy ITCHING Verified 03/13/16 12:44 - Medications Medications: Current Medications Acetaminophen (Tylenol 325mg Tab) 650 mg PO Q4H PRN PRN Reason: Temp >100 Amlodipine Besylate (Norvasc) 5 mg PO DAILY [facility] Last Admin: 03/11/17 09:40 Dose: 5 mg Cinacalcet (Sensipar) 30 mg PO DAILY [facility] Last Admin: 03/11/17 09:41 Dose: 30 mg Docusate Sodium (Colace) 100 mg PO BID [facility] Last Admin: 03/11/17 09:40 Dose: 100 mg Home Med (Tacrolimus [Prograf]) 5 mg PO BID [facility] Meropenem 1 gm/ Sodium (Chloride) 100 mls @ 100 mls/hr IVPB Q12 [facility] Last Admin: 03/11/17 09:39 Dose: 100 mls/hr Sodium Chloride (Sodium Chloride 0.9%) 1,000 mls @ 80 mls/hr IV .[id number] [facility] Stop: 03/12/17 11:31 Last Admin: 03/11/17 13:14 Dose: 80 mls/hr Metoclopramide HCl (Reglan) 10 mg IVP Q6 PRN PRN Reason: Nausea/Vomiting Morphine Sulfate (Morphine) 2 mg IVP Q6 PRN PRN Reason: Pain, moderate (4-7) Morphine Sulfate (Morphine) 1 mg IVP Q6 PRN PRN Reason: Pain, Mild (1-3) Mycophenolate Mofetil (Cellcept Cap) 250 mg PO BID [facility] Last Admin: 03/11/17 09:41 Dose: 250 mg Pantoprazole Sodium (Protonix Ec Tab) 40 mg PO DAILY [facility] Last Admin: 03/11/17 09:41 Dose: 40 mg Prednisone (Prednisone Tab) 5 mg PO DAILY [facility] Last Admin: 03/11/17 09:41 Dose: 5 mg Saccharomyces Boulardii (Florastor) 250 mg PO BID [facility] Last Admin: 03/11/17 09:41 Dose: 250 mg Trimethoprim/Sulfamethoxazole (Bactrim Ds Tab) 1 tab PO MOWEFR [facility] Physical Exam - Constitutional Appears: No Acute Distress, Chronically Ill - Head Exam Head Exam: ATRAUMATIC - Eye Exam Eye Exam: EOMI, PERRL - ENT Exam ENT Exam: Normal Oropharynx - Neck Exam Neck exam: Positive for: Full Rom - Respiratory Exam Respiratory Exam: Clear to Auscultation Bilateral, NORMAL BREATHING PATTERN - Cardiovascular Exam Cardiovascular Exam: RRR, +S1, +S2 - GI/Abdominal Exam GI & Abdominal Exam: Normal Bowel Sounds, Soft Additional comments: minimal tenderness in LLQ and left flank region No guarding no rebound No distention soft - Extremities Exam Extremities exam: Positive for: normal inspection - Neurological Exam Neurological exam: Alert, Oriented x3 Results - Vital Signs Recent Vital Signs: Last Vital Signs Temp 98.6 F 03/11/17 12:21 Pulse 97 H 03/11/17 12:21 Resp 18 03/11/17 12:21 BP 115/69 03/11/17 12:21 Pulse Ox 97 03/11/17 12:21 - Labs Result Diagrams: 03/11/17 05:20 03/11/17 05:20 Labs: Laboratory Results - last 24 hr 03/10/17 03/10/17 03/10/17 16:11 16:58 21:44 WBC RBC Hgb Hct MCV MCH MCHC RDW Plt Count Sodium Potassium Chloride Carbon Dioxide Anion Gap BUN Creatinine Est GFR ( Amer) Est GFR (Non-Af Amer) POC Glucose (mg/dL) 150 H 123 H Random Glucose Calcium Phosphorus Magnesium Troponin I Urine Color Yellow Urine Clarity Slighty-cloudy Urine pH 5.0 Ur Specific [place] 1.014 Urine Protein Negative Urine Glucose (UA) Neg Urine Ketones Negative Urine Blood Negative Urine Nitrate Positive H Urine Bilirubin Negative Urine Urobilinogen 0.2-1.0 Ur Leukocyte Esterase Small Urine RBC (Auto) 3 Urine Microscopic WBC 20 H Ur Squamous Epith Cells 4 Urine Bacteria Rare Hyaline Casts 0-2 03/10/17 03/11/17 03/11/17 23:32 05:20 05:20 WBC 17.4 H RBC 3.62 L Hgb 10.6 L Hct 33.0 L MCV 91.3 MCH 29.2 MCHC 32.0 L RDW 15.6 H Plt Count 206 Sodium 136 Potassium 5.0 Chloride 101 Carbon Dioxide 25 Anion Gap 15 BUN 23 H Creatinine 0.8 Est GFR ( Amer) > 60 Est GFR (Non-Af Amer) > 60 POC Glucose (mg/dL) Random Glucose 140 H Calcium 12.1 H Phosphorus 3.0 Magnesium 1.2 L Troponin I < 0.0120 Urine Color Urine Clarity Urine pH Ur Specific [place] Urine Protein Urine Glucose (UA) Urine Ketones Urine Blood Urine Nitrate Urine Bilirubin Urine Urobilinogen Ur Leukocyte Esterase Urine RBC (Auto) Urine Microscopic WBC Ur Squamous Epith Cells Urine Bacteria Hyaline Casts 03/11/17 03/11/17 06:07 11:13 WBC RBC Hgb Hct MCV MCH MCHC RDW Plt Count Sodium Potassium Chloride Carbon Dioxide Anion Gap BUN Creatinine Est GFR ( Amer) Est GFR (Non-Af Amer) POC Glucose (mg/dL) 148 H 142 H Random Glucose Calcium Phosphorus Magnesium Troponin I Urine Color Urine Clarity Urine pH Ur Specific [place] Urine Protein Urine Glucose (UA) Urine Ketones Urine Blood Urine Nitrate Urine Bilirubin Urine Urobilinogen Ur Leukocyte Esterase Urine RBC (Auto) Urine Microscopic WBC Ur Squamous Epith Cells Urine Bacteria Hyaline Casts Laboratory Results - last 72 hr 03/10/17 03/10/17 03/10/17 13:10 13:10 13:10 WBC 16.8 H D RBC 3.91 Hgb 11.3 L Hct 35.6 MCV 91.1 D MCH 28.9 MCHC 31.8 L RDW 15.7 H Plt Count 212 MPV 7.5 Neut % (Auto) 86.1 H Lymph % (Auto) 5.9 L [place] % (Auto) 7.8 Eos % (Auto) 0.1 Baso % (Auto) 0.1 Neut # 14.5 H Lymph # 1.0 [place] # 1.3 H Eos # 0.0 Baso # 0.0 Neutrophils % (Manual) 76 H Band Neutrophils % 7 H Lymphocytes % (Manual) 6 L Monocytes % (Manual) 11 H Platelet Estimate Normal Anisocytosis (manual) Slight PT 12.5 INR 1.2 APTT 28.4 pO2 VBG pH VBG pCO2 VBG HCO3 VBG Total CO2 VBG O2 Sat (Calc) VBG Base Excess VBG Potassium A-a O2 Difference Glucose Lactate FiO2 Crit Value Called To Crit Value Called By Crit Value Read Back Blood Gas Notified Time Sodium 135 Potassium 4.9 Chloride 102 Carbon Dioxide 24 Anion Gap 13 BUN 25 H Creatinine 0.7 Est GFR ( Amer) > 60 Est GFR (Non-Af Amer) > 60 POC Glucose (mg/dL) Random Glucose 187 H Calcium 12.6 H Phosphorus Magnesium Total Bilirubin 0.4 AST 11 L ALT 16 Alkaline Phosphatase 94 Troponin I Total Protein 6.6 Albumin 3.5 D Globulin 3.1 Albumin/Globulin Ratio 1.1 Venous Blood Potassium Urine Color Urine Clarity Urine pH Ur Specific [place] Urine Protein Urine Glucose (UA) Urine Ketones Urine Blood Urine Nitrate Urine Bilirubin Urine Urobilinogen Ur Leukocyte Esterase Urine RBC (Auto) Urine Microscopic WBC Ur Squamous Epith Cells Urine Bacteria Hyaline Casts Blood Type Antibody Screen BBK History Checked 03/10/17 03/10/17 03/10/17 13:10 13:28 14:20 WBC RBC Hgb Hct MCV MCH MCHC RDW Plt Count MPV Neut % (Auto) Lymph % (Auto) [place] % (Auto) Eos % (Auto) Baso % (Auto) Neut # Lymph # [place] # Eos # Baso # Neutrophils % (Manual) Band Neutrophils % Lymphocytes % (Manual) Monocytes % (Manual) Platelet Estimate Anisocytosis (manual) PT INR APTT pO2 39 VBG pH 7.40 VBG pCO2 37 L VBG HCO3 23.3 VBG Total CO2 24.0 VBG O2 Sat (Calc) 83.4 H VBG Base Excess -1.7 L VBG Potassium 3.7 A-a O2 Difference 64.0 Glucose 152 H Lactate 0.8 FiO2 21.0 Crit Value Called To Christin rivera Crit Value Called By 5 Crit Value Read Back Y Blood Gas Notified Time 1440 Sodium 138.0 Potassium Chloride 113.0 H Carbon Dioxide Anion Gap BUN Creatinine Est GFR ( Amer) Est GFR (Non-Af Amer) POC Glucose (mg/dL) 183 H Random Glucose Calcium Phosphorus Magnesium Total Bilirubin AST ALT Alkaline Phosphatase Troponin I Total Protein Albumin Globulin Albumin/Globulin Ratio Venous Blood Potassium 3.7 Urine Color Urine Clarity Urine pH Ur Specific [place] Urine Protein Urine Glucose (UA) Urine Ketones Urine Blood Urine Nitrate Urine Bilirubin Urine Urobilinogen Ur Leukocyte Esterase Urine RBC (Auto) Urine Microscopic WBC Ur Squamous Epith Cells Urine Bacteria Hyaline Casts Blood Type O POSITIVE Antibody Screen Negative BBK History Checked Patient has bt 03/10/17 03/10/17 03/10/17 16:11 16:58 21:44 WBC RBC Hgb Hct MCV MCH MCHC RDW Plt Count MPV Neut % (Auto) Lymph % (Auto) [place] % (Auto) Eos % (Auto) Baso % (Auto) Neut # Lymph # [place] # Eos # Baso # Neutrophils % (Manual) Band Neutrophils % Lymphocytes % (Manual) Monocytes % (Manual) Platelet Estimate Anisocytosis (manual) PT INR APTT pO2 VBG pH VBG pCO2 VBG HCO3 VBG Total CO2 VBG O2 Sat (Calc) VBG Base Excess VBG Potassium A-a O2 Difference Glucose Lactate FiO2 Crit Value Called To Crit Value Called By Crit Value Read Back Blood Gas Notified Time Sodium Potassium Chloride Carbon Dioxide Anion Gap BUN Creatinine Est GFR ( Amer) Est GFR (Non-Af Amer) POC Glucose (mg/dL) 150 H 123 H Random Glucose Calcium Phosphorus Magnesium Total Bilirubin AST ALT Alkaline Phosphatase Troponin I Total Protein Albumin Globulin Albumin/Globulin Ratio Venous Blood Potassium Urine Color Yellow Urine Clarity Slighty-cloudy Urine pH 5.0 Ur Specific [place] 1.014 Urine Protein Negative Urine Glucose (UA) Neg Urine Ketones Negative Urine Blood Negative Urine Nitrate Positive H Urine Bilirubin Negative Urine Urobilinogen 0.2-1.0 Ur Leukocyte Esterase Small Urine RBC (Auto) 3 Urine Microscopic WBC 20 H Ur Squamous Epith Cells 4 Urine Bacteria Rare Hyaline Casts 0-2 Blood Type Antibody Screen BBK History Checked 03/10/17 03/11/17 03/11/17 23:32 05:20 05:20 WBC 17.4 H RBC 3.62 L Hgb 10.6 L Hct 33.0 L MCV 91.3 MCH 29.2 MCHC 32.0 L RDW 15.6 H Plt Count 206 MPV Neut % (Auto) Lymph % (Auto) [place] % (Auto) Eos % (Auto) Baso % (Auto) Neut # Lymph # [place] # Eos # Baso # Neutrophils % (Manual) Band Neutrophils % Lymphocytes % (Manual) Monocytes % (Manual) Platelet Estimate Anisocytosis (manual) PT INR APTT pO2 VBG pH VBG pCO2 VBG HCO3 VBG Total CO2 VBG O2 Sat (Calc) VBG Base Excess VBG Potassium A-a O2 Difference Glucose Lactate FiO2 Crit Value Called To Crit Value Called By Crit Value Read Back Blood Gas Notified Time Sodium 136 Potassium 5.0 Chloride 101 Carbon Dioxide 25 Anion Gap 15 BUN 23 H Creatinine 0.8 Est GFR ( Amer) > 60 Est GFR (Non-Af Amer) > 60 POC Glucose (mg/dL) Random Glucose 140 H Calcium 12.1 H Phosphorus 3.0 Magnesium 1.2 L Total Bilirubin AST ALT Alkaline Phosphatase Troponin I < 0.0120 Total Protein Albumin Globulin Albumin/Globulin Ratio Venous Blood Potassium Urine Color Urine Clarity Urine pH Ur Specific [place] Urine Protein Urine Glucose (UA) Urine Ketones Urine Blood Urine Nitrate Urine Bilirubin Urine Urobilinogen Ur Leukocyte Esterase Urine RBC (Auto) Urine Microscopic WBC Ur Squamous Epith Cells Urine Bacteria Hyaline Casts Blood Type Antibody Screen BBK History Checked 03/11/17 03/11/17 06:07 11:13 WBC RBC Hgb Hct MCV MCH MCHC RDW Plt Count MPV Neut % (Auto) Lymph % (Auto) [place] % (Auto) Eos % (Auto) Baso % (Auto) Neut # Lymph # [place] # Eos # Baso # Neutrophils % (Manual) Band Neutrophils % Lymphocytes % (Manual) Monocytes % (Manual) Platelet Estimate Anisocytosis (manual) PT INR APTT pO2 VBG pH VBG pCO2 VBG HCO3 VBG Total CO2 VBG O2 Sat (Calc) VBG Base Excess VBG Potassium A-a O2 Difference Glucose Lactate FiO2 Crit Value Called To Crit Value Called By Crit Value Read Back Blood Gas Notified Time Sodium Potassium Chloride Carbon Dioxide Anion Gap BUN Creatinine Est GFR ( Amer) Est GFR (Non-Af Amer) POC Glucose (mg/dL) 148 H 142 H Random Glucose Calcium Phosphorus Magnesium Total Bilirubin AST ALT Alkaline Phosphatase Troponin I Total Protein Albumin Globulin Albumin/Globulin Ratio Venous Blood Potassium Urine Color Urine Clarity Urine pH Ur Specific [place] Urine Protein Urine Glucose (UA) Urine Ketones Urine Blood Urine Nitrate Urine Bilirubin Urine Urobilinogen Ur Leukocyte Esterase Urine RBC (Auto) Urine Microscopic WBC Ur Squamous Epith Cells Urine Bacteria Hyaline Casts Blood Type Antibody Screen BBK History Checked Microbiology 03/10/17 14:15 Blood Blood Culture - Preliminary NO GROWTH AFTER 24 HOURS 03/10/17 14:30 Blood Blood Culture - Preliminary NO GROWTH AFTER 24 HOURS 03/10/17 16:25 Urine Urine Culture - Preliminary Gram Negative Miles Microbiology 01/18/17 19:27 Urine Urine Culture - Final Escherichia Coli 01/18/17 18:00 Blood Blood Culture - Final 01/18/17 18:00 Blood Gram Stain - Final NO GROWTH AFTER 5 DAYS TEST NOT PERFORMED Accession No. 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 Oral contrast was administered. No IV contrast given. Coronal and Sagittal reformats generated. Radiation dose: Total exam DLP = 196.13 mGy-cm. This CT exam was performed using one or more of the following dose reduction techniques: Automated exposure control, adjustment of the mA and/or kV according to patient size, and/or use of iterative reconstruction technique. FINDINGS: LOWER THORAX: There appears to be some very minor left basilar atelectasis. Lung yung are otherwise clear. No evidence of basilar effusion or pneumothorax. Tiny hiatal hernia. Heart size is within range of normal. No significant pericardial effusion. LIVER: Liver exhibits normal size measuring approximately 13.4 cm in CC dimension. No obvious hepatic mass collection or calcification. . . GALLBLADDER AND BILE DUCTS: Gallbladder is physiologically distended. Intraluminal gallbladder calculi are again noted. No evidence pericholecystic fluid collections. PANCREAS: The pancreas is mildly atrophic and fatty replaced. No pancreatic mass collection or calcification. SPLEEN: Spleen exhibits normal size and attenuation pattern. No splenic mass collection or calcification. . ADRENALS: No adrenal lesions. KIDNEYS AND URETERS: Atrophic changes of the kidneys again noted. There is also a right-sided pelvic transplant kidney with what appears represent 2 or 3 adjacent cysts along the at anterior margin of the transplant kidney. BLADDER: Urinary bladder is incompletely distended which presumably may account for slightly thick-walled appearance. Possibility of a cystitis not excluded. REPRODUCTIVE: Uterus is unremarkable. APPENDIX: Appendix not seen with complete certainty. BOWEL: Evaluation of the bowel is limited due to the lack of oral contrast material. Stomach is incompletely distended which presumably accounts for thick-walled appearance. Visualized loops of small bowel exhibit normal contour and caliber. No evidence of acute mechanical small bowel obstruction. Large amount of stool present within the colon consistent with fecal retention- constipation. . Re- demonstrated are multiple colonic diverticula along the distal descending and sigmoid colon. Wall thickening of distal aspect of the descending and sigmoid colon consistent with acute colitis or diverticulitis. Additionally, questionable giant diverticulum/pseudo diverticulum or possibly abscess with an air-fluid level along the distal aspect anterior aspect of the inflamed sigmoid colon, adjacent to -abutting and just cephalad to the roof of the urinary bladder. PERITONEUM: As above LYMPH NODES: Unremarkable. No enlarged lymph nodes. VASCULATURE: No evidence of abdominal aortic or iliac artery aneurysm. BONES: Re- demonstrated are chronic superior endplate compression deformities of L3 and L1 segments. OTHER FINDINGS: None. IMPRESSION: Impression: Findings consistent with diverticulosis and diverticulitis or colitis with questionable giant pseudodiverticulum/diverticulum versus possible abscess arising from the anterior distal margin of the inflamed sigmoid colon abutting the roof of the urinary bladder. . Findings consistent with constipation. Atrophic changes of the lower [place] kidneys. The right renal transplant kidney with what appears represent small cystic changes in the anterior margin of the transplant parenchyma. Cholelithiasis. Findings discussed with Dr. Remy and at approximately 3:20 p.m. with written down and read back verification. 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 pseudo diverticulum vs abscess as per CT report. low grade fever Leukocytosis with left shift. Ct report noted. plan- await Final ID adn sensitivity of the GNR in urine cx. In light of previous ESBL uti and pt. being immune suppressed advise to start IV meropenem pending further results. a dvise to also check for stool c.diff. advise to also add flagyl for more anaerobic coverage in light of the diverticulitis. meropenem will also treat the diverticulitis. also place on probiotics. check blood cx x 2. Thank you for allowing me to take part in the care of this patient. will f/u
[2017-03-11] MEDS ORDERED: metroNIDAZOLE 500mg/100ml NS 100 ML IVPB SCH (17:00)
[2017-03-11] MEDS: Tmp-Smz 800 mg-160 mg DS Tab PO SCH (17:28)
--- NOTE | 2017-03-11 19:51 | CP.PCM.CON ---
History of Present Illness - History of Present Illness History of Present Illness: REASONS FOR CONSULT : S/P RENAL TRANSPLANT .. IN NEED FOR IMMUNOSUPRESSANT MEDS CHRONIC MILD HYPERCALCEMIA PT IS WELL KNOWN TO ME ..WITH MMP AND FREQUENT ADMISSIONS CAME IN WITH ANOTHER BOUT OF DIVERTICULITIS .. PT LOST CLOSE TO 40 LBS IN THE LAST YEAR OR SO History of Present Illness: Pleasant 61 YO F w/ PMH of renal transplant 11 years ago, DM, multiple admissions for diverticulitis presents w/ left lower back pain radiating to the front x 5 days. Pt states that she had 2 episodes of non bloody non bilious vomiting yesterday. Denies any constipation or diarrhea. Patient also has a chronic history of lower back pain which has been occurring for some time and states it has been getting worse, denies any falls or trauma to the area recently. She did have a fall about 3 months ago and was worked up in [facility], which did not show any fracture. On patients last admission on 01/18/17 she admitted for diverticulitis and seen by surgery and GI, at that time she was medically treated and was a candidate for surgical intervention. On discharge last time patient was advised to follow up to get a colonoscopy, but patient states she was too weak and was not able to go get it done. Since her previous admission to [facility], she was transferred for [place] for 3 weeks, in which she seemed to be getting better and gaining some weight and now has moved back with her daughter and seems to be getting weaker. As per patients son who was at bedside, the patient lost almost 60 pounds within the last year. PMH: Anemia, CKD ( formally on HD but not after receiving Right kidney transplant in 2004), HTN, DM2, HLD, , HX of falls, Diverticulitis, Recurrent UTI. PSH: Bilateral Upper arm AV fistulas, , Right kidney transplant ( Received HD for 4 to 5 years) Allergies: Cefazolin, Iodine, Vancomycin which causes pruritus. 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 . Atrophic changes of the eklutna kidneys. The right renal transplant kidney with what appears represent small cystic changes in the anterior margin of the transplant parenchyma. Past Patient History - Infectious Disease Hx of Infectious Diseases: None - Past Medical History & Family History Past Medical History?: Yes - Past Social History Smoking Status: Never Smoked Home Situation {Lives}: With Family - CARDIAC Hx Hypercholesterolemia: Yes Hx Hypertension: Yes - PULMONARY Hx Respiratory Disorders: No - NEUROLOGICAL Hx Neurological Disorder: No - HEENT Hx HEENT Problems: No - RENAL Hx Chronic Kidney Disease: Yes (kidney transplant) - ENDOCRINE/METABOLIC Hx Endocrine Disorders: Yes Hx Diabetes Mellitus Type 2: Yes - HEMATOLOGICAL/ONCOLOGICAL Hx Anemia: Yes - INTEGUMENTARY Hx Dermatological Problems: No - MUSCULOSKELETAL/RHEUMATOLOGICAL Hx Falls: Yes - GASTROINTESTINAL Hx Gastrointestinal Disorders: Yes Hx Colitis: Yes - GENITOURINARY/GYNECOLOGICAL Hx Genitourinary Disorders: Yes (UTI) Hx Urinary Tract Infection: Yes - PSYCHIATRIC Hx Psychophysiologic Disorder: No Hx Substance Use: No - SURGICAL HISTORY Hx Surgeries: Yes Hx Arteriovenous Shunt: Yes Hx Section: Yes (x2) Hx Vascular Access Device: Yes Other/Comment: RIGHT KIDNEY TRANSPLANT - ANESTHESIA Hx Anesthesia: Yes Hx Anesthesia Reactions: No Hx Malignant Hyperthermia: No Meds Allergies/Adverse Reactions: Allergies Allergy/AdvReac Type Severity Reaction Status Date / Time cefazolin Allergy ITCHING Verified 03/13/16 12:44 iodine Allergy ITCHING Verified 03/13/16 12:44 vancomycin Allergy ITCHING Verified 03/13/16 12:44 - Medications Medications: Current Medications Acetaminophen (Tylenol 325mg Tab) 650 mg PO Q4H PRN PRN Reason: Temp >100 Amlodipine Besylate (Norvasc) 5 mg PO DAILY [facility] Last Admin: 03/11/17 09:40 Dose: 5 mg Cinacalcet (Sensipar) 30 mg PO DAILY [facility] Last Admin: 03/11/17 09:41 Dose: 30 mg Docusate Sodium (Colace) 100 mg PO BID [facility] Last Admin: 03/11/17 17:30 Dose: Not Given Home Med (Tacrolimus [Prograf]) 5 mg PO BID [facility] Last Admin: 03/11/17 17:29 Dose: 5 mg Meropenem 1 gm/ Sodium (Chloride) 100 mls @ 100 mls/hr IVPB Q12 [facility] Last Admin: 03/11/17 09:39 Dose: 100 mls/hr Sodium Chloride (Sodium Chloride 0.9%) 1,000 mls @ 80 mls/hr IV .[id number] [facility] Stop: 03/12/17 11:31 Last Admin: 03/11/17 13:14 Dose: 80 mls/hr Metoclopramide HCl (Reglan) 10 mg IVP Q6 PRN PRN Reason: Nausea/Vomiting Morphine Sulfate (Morphine) 2 mg IVP Q6 PRN PRN Reason: Pain, moderate (4-7) Morphine Sulfate (Morphine) 1 mg IVP Q6 PRN PRN Reason: Pain, Mild (1-3) Mycophenolate Mofetil (Cellcept Cap) 250 mg PO BID [facility] Last Admin: 03/11/17 17:28 Dose: 250 mg Pantoprazole Sodium (Protonix Ec Tab) 40 mg PO DAILY [facility] Last Admin: 03/11/17 09:41 Dose: 40 mg Prednisone (Prednisone Tab) 5 mg PO DAILY [facility] Last Admin: 03/11/17 09:41 Dose: 5 mg Saccharomyces Boulardii (Florastor) 250 mg PO BID [facility] Last Admin: 03/11/17 17:28 Dose: 250 mg Trimethoprim/Sulfamethoxazole (Bactrim Ds Tab) 1 tab PO MOWEFR [facility] Last Admin: 03/11/17 17:28 Dose: 1 tab Results - Vital Signs Recent Vital Signs: Last Vital Signs Temp 98.3 F 03/11/17 16:02 Pulse 94 H 03/11/17 16:02 Resp 14 03/11/17 16:02 BP 105/64 03/11/17 16:02 Pulse Ox 98 03/11/17 16:02 - Labs Result Diagrams: 03/11/17 05:20 03/11/17 05:20 Labs: Laboratory Results - last 24 hr 03/10/17 03/10/17 03/10/17 16:58 18:00 21:44 WBC RBC Hgb Hct MCV MCH MCHC RDW Plt Count Sodium Potassium Chloride Carbon Dioxide Anion Gap BUN Creatinine Est GFR ( Amer) Est GFR (Non-Af Amer) POC Glucose (mg/dL) 150 H 123 H Random Glucose Hemoglobin A1c 5.5 Calcium Phosphorus Magnesium Troponin I 03/10/17 03/11/17 03/11/17 23:32 05:20 05:20 WBC 17.4 H RBC 3.62 L Hgb 10.6 L Hct 33.0 L MCV 91.3 MCH 29.2 MCHC 32.0 L RDW 15.6 H Plt Count 206 Sodium 136 Potassium 5.0 Chloride 101 Carbon Dioxide 25 Anion Gap 15 BUN 23 H Creatinine 0.8 Est GFR ( Amer) > 60 Est GFR (Non-Af Amer) > 60 POC Glucose (mg/dL) Random Glucose 140 H Hemoglobin A1c Calcium 12.1 H Phosphorus 3.0 Magnesium 1.2 L Troponin I < 0.0120 03/11/17 03/11/17 03/11/17 06:07 11:13 16:03 WBC RBC Hgb Hct MCV MCH MCHC RDW Plt Count Sodium Potassium Chloride Carbon Dioxide Anion Gap BUN Creatinine Est GFR ( Amer) Est GFR (Non-Af Amer) POC Glucose (mg/dL) 148 H 142 H 111 H Random Glucose Hemoglobin A1c Calcium Phosphorus Magnesium Troponin I Assessment & Plan - Assessment and Plan (Free Text) Assessment: S/P RENAL THX STEPHANI 11 YEARS AGO .. WITH RENAL FUNCTION GOOD ANEMIA OF CKD .. HGB IS MILDLY LOW RECURRENT BOUTS OF DIVERTICULITIS MMP OUTINED ABOCVE P : C/O CURRENT IMMUNOSUPRESSANT MEDS WILL D/W THE SURGEON TO POSSIBLY REMOVE THE PROBLEMATIC AREA OF THE COLON TO GIVE PT A BETTER CHANCE OF MORBIDITY THIS IS HER 3RD ADMISSION FOR ACUTE DIVERTICULITIS D/W MED RESIDENT AT [facility] - Date & Time Date: 03/11/17 Time: 14:00
[2017-03-12 06:27] LABS: BASO % 0.2 % (0.0-2.0); EOS # 0.1 K/uL (0.0-0.7); EOS % 0.6 % (0.0-4.0); LYMPH # 1.7 K/uL (1.0-4.3); LYMPH % 19.3 % (20.0-40.0); MEAN CORPUSCULAR HEMOGLOBIN 29.3 pg (27.0-31.0); MEAN CORPUSCULAR HGB CONC 32.2 g/dL (33.0-37.0); MEAN PLATELET VOLUME 7.5 fl (7.2-11.7); MONO # 0.7 K/uL (0.0-0.8); NEUT # 6.2 K/uL (1.8-7.0); NEUT % 71.9 % (50.0-75.0); RED CELL DISTRIBUTION WIDTH 15.5 % (11.5-14.5); WHITE BLOOD COUNT 8.7 K/uL (4.8-10.8)
--- NOTE | 2017-03-12 07:52 | CP.PCM.PN ---
<JaironCece - Last Filed: 03/12/17 07:48> Subjective - Date & Time of Evaluation Date of Evaluation: 03/12/17 Time of Evaluation: 07:48 - Subjective Subjective: General Surgery - DR. Knowles Pt S&EHeladio GONZALEZ. Yesterday afternoon pt had a large soft BM after fleet enema. She now states that she feels much better and her abdominal pain is improved. CDiff antigen +. No N/V, F/C, SOB/Cp. Objective - Vital Signs/Intake and Output Vital Signs (last 24 hours): Temp Pulse Resp BP Pulse Ox 97.4 F L 73 18 118/68 100 03/12/17 04:47 03/12/17 04:47 03/12/17 04:47 03/12/17 04:47 03/12/17 04:47 - Medications Medications: Current Medications Acetaminophen (Tylenol 325mg Tab) 650 mg PO Q4H PRN PRN Reason: Temp >100 Amlodipine Besylate (Norvasc) 5 mg PO DAILY [facility] Last Admin: 03/11/17 09:40 Dose: 5 mg Cinacalcet (Sensipar) 30 mg PO DAILY [facility] Last Admin: 03/11/17 09:41 Dose: 30 mg Docusate Sodium (Colace) 100 mg PO BID [facility] Last Admin: 03/11/17 17:30 Dose: Not Given Home Med (Tacrolimus [Prograf]) 5 mg PO BID [facility] Last Admin: 03/11/17 17:29 Dose: 5 mg Meropenem 1 gm/ Sodium (Chloride) 100 mls @ 100 mls/hr IVPB Q12 [facility] Last Admin: 03/11/17 20:16 Dose: 100 mls/hr Sodium Chloride (Sodium Chloride 0.9%) 1,000 mls @ 80 mls/hr IV .[id number] [facility] Stop: 03/12/17 11:31 Last Admin: 03/11/17 23:19 Dose: 80 mls/hr Metoclopramide HCl (Reglan) 10 mg IVP Q6 PRN PRN Reason: Nausea/Vomiting Morphine Sulfate (Morphine) 2 mg IVP Q6 PRN PRN Reason: Pain, moderate (4-7) Morphine Sulfate (Morphine) 1 mg IVP Q6 PRN PRN Reason: Pain, Mild (1-3) Mycophenolate Mofetil (Cellcept Cap) 250 mg PO BID [facility] Last Admin: 03/11/17 17:28 Dose: 250 mg Pantoprazole Sodium (Protonix Ec Tab) 40 mg PO DAILY [facility] Last Admin: 03/11/17 09:41 Dose: 40 mg Prednisone (Prednisone Tab) 5 mg PO DAILY [facility] Last Admin: 03/11/17 09:41 Dose: 5 mg Saccharomyces Boulardii (Florastor) 250 mg PO BID [facility] Last Admin: 03/11/17 17:28 Dose: 250 mg Trimethoprim/Sulfamethoxazole (Bactrim Ds Tab) 1 tab PO MOWEFR [facility] Last Admin: 03/11/17 17:28 Dose: 1 tab - Labs Labs: 03/12/17 05:05 03/11/17 05:20 PT 12.5 Seconds (9.8-13.1) 03/10/17 13:10 INR 1.2 (0.9-1.2) 03/10/17 13:10 APTT 28.4 Seconds (25.6-37.1) 03/10/17 13:10 - Constitutional Appears: No Acute Distress - Head Exam Head Exam: ATRAUMATIC, NORMAL INSPECTION, NORMOCEPHALIC - Respiratory Exam Respiratory Exam: NORMAL BREATHING PATTERN. absent: Respiratory Distress - GI/Abdominal Exam GI & Abdominal Exam: Soft, Tenderness (mild ttp LLQ, much improved). absent: Distended, Guarding, Rigid, Rebound - Neurological Exam Neurological Exam: Alert, Oriented x3 - Psychiatric Exam Psychiatric exam: Normal Affect, Normal Mood - Skin Skin Exam: Dry, Intact Assessment and Plan - Assessment and Plan (Free Text) Assessment: 61F w/ diverticulitis and c diff colitis Plan: -Clear liquid diet -Continue IV Abx as per ID -IVF -WBC normalized -Pain control -OOB/PT DW Dr Eleni De La O PGy3 <Jean Claude Knowles B - Last Filed: 03/17/17 18:20> Objective - Vital Signs/Intake and Output Vital Signs (last 24 hours): Temp Pulse Resp BP Pulse Ox 98.3 F 94 H 18 131/75 99 03/17/17 16:11 03/17/17 16:11 03/17/17 16:11 03/17/17 16:11 03/17/17 16:11 Intake and Output: 03/17/17 03/17/17 06:59 18:59 Intake Total 960 Balance 960 - Medications Medications: Current Medications Acetaminophen (Tylenol 325mg Tab) 650 mg PO Q4H PRN PRN Reason: Temp >100 Amlodipine Besylate (Norvasc) 5 mg PO DAILY [facility] Last Admin: 03/17/17 09:08 Dose: 5 mg Bisacodyl (Dulcolax) 5 mg PO DAILY PRN PRN Reason: Constipation Cinacalcet (Sensipar) 30 mg PO DAILY [facility] Last Admin: 03/17/17 09:08 Dose: 30 mg Diphenhydramine HCl (Benadryl) 25 mg IVP Q6 PRN PRN Reason: Allergy symptoms Docusate Sodium (Colace) 100 mg PO BID [facility] Last Admin: 03/17/17 16:01 Dose: Not Given Home Med (Tacrolimus [Prograf]) 5 mg PO BID [facility] Last Admin: 03/17/17 16:00 Dose: 5 mg Meropenem 1 gm/ Sodium (Chloride) 100 mls @ 100 mls/hr IVPB Q12 [facility] Last Admin: 03/17/17 09:05 Dose: 100 mls/hr Iron Sucrose 100 mg/ Sodium (Chloride) 105 mls @ 105 mls/hr IVPB DAILY [facility] Stop: 03/18/17 09:01 Last Admin: 03/17/17 11:34 Dose: 105 mls/hr Lidocaine (Lidoderm) 1 ea TD DAILY [facility] Last Admin: 03/17/17 09:05 Dose: 1 ea Metoclopramide HCl (Reglan) 10 mg IVP Q6 PRN PRN Reason: Nausea/Vomiting Metronidazole (Flagyl) 500 mg PO Q8 [facility] Last Admin: 03/17/17 16:00 Dose: 500 mg Mycophenolate Mofetil (Cellcept Cap) 250 mg PO BID [facility] Last Admin: 03/17/17 16:01 Dose: 250 mg Ondansetron HCl (Zofran Inj) 4 mg IVP Q4 PRN PRN Reason: Nausea/Vomiting Last Admin: 03/15/17 15:46 Dose: 4 mg Pantoprazole Sodium (Protonix Ec Tab) 40 mg PO DAILY [facility] Last Admin: 03/17/17 09:14 Dose: 40 mg Prednisone (Prednisone Tab) 5 mg PO DAILY [facility] Last Admin: 03/17/17 09:14 Dose: 5 mg Saccharomyces Boulardii (Florastor) 250 mg PO BID [facility] Last Admin: 03/17/17 16:00 Dose: 250 mg Sennosides (Senokot Tab) 17.2 mg PO HS [facility] Last Admin: 03/16/17 22:26 Dose: 17.2 mg Tramadol HCl (Ultram) 50 mg PO Q6 PRN PRN Reason: Pain, severe (8-10) Last Admin: 03/17/17 15:58 Dose: 50 mg - Labs Labs: 03/17/17 05:30 03/17/17 05:30 PT 12.5 Seconds (9.8-13.1) 03/10/17 13:10 INR 1.2 (0.9-1.2) 03/10/17 13:10 APTT 28.4 Seconds (25.6-37.1) 03/10/17 13:10 Attending/Attestation - Attestation I have personally seen and examined this patient.: Yes I have fully participated in the care of the patient.: Yes I have reviewed all pertinent clinical information, including history, physical exam and plan: Yes Notes (Text): 03/17/17 18:20 Pt was seen and examined at bedside Agree with above note and assessment Pt with Diverticulitis with C Diff colitis ID consult for C Diff colitis Pt is improving clinically Plan d.w pt in detail Risk and benefit explained in detail.
--- NOTE | 2017-03-12 09:18 | CP.PCM.PN ---
Subjective - Date & Time of Evaluation Date of Evaluation: 03/12/17 Time of Evaluation: 06:45 - Subjective Subjective: Patient seen and examined today at bedside, no acute overnight events, she reports feeling well, slept well through the night, reports had a large soft BM yesterday after a fleet enema. Reports improvement of abdominal pain. Denies fever, nausea, vomiting, no diarrhea, no urinary symptoms. Objective - Vital Signs/Intake and Output Vital Signs (last 24 hours): Temp Pulse Resp BP Pulse Ox 98.3 F 77 18 122/66 99 03/12/17 08:06 03/12/17 08:06 03/12/17 08:06 03/12/17 08:06 03/12/17 08:06 - Medications Medications: Current Medications Acetaminophen (Tylenol 325mg Tab) 650 mg PO Q4H PRN PRN Reason: Temp >100 Amlodipine Besylate (Norvasc) 5 mg PO DAILY [facility] Last Admin: 03/11/17 09:40 Dose: 5 mg Cinacalcet (Sensipar) 30 mg PO DAILY [facility] Last Admin: 03/11/17 09:41 Dose: 30 mg Docusate Sodium (Colace) 100 mg PO BID [facility] Last Admin: 03/11/17 17:30 Dose: Not Given Home Med (Tacrolimus [Prograf]) 5 mg PO BID [facility] Last Admin: 03/11/17 17:29 Dose: 5 mg Meropenem 1 gm/ Sodium (Chloride) 100 mls @ 100 mls/hr IVPB Q12 [facility] Last Admin: 03/11/17 20:16 Dose: 100 mls/hr Sodium Chloride (Sodium Chloride 0.9%) 1,000 mls @ 80 mls/hr IV .[id number] [facility] Stop: 03/12/17 11:31 Last Admin: 03/11/17 23:19 Dose: 80 mls/hr Metoclopramide HCl (Reglan) 10 mg IVP Q6 PRN PRN Reason: Nausea/Vomiting Morphine Sulfate (Morphine) 2 mg IVP Q6 PRN PRN Reason: Pain, moderate (4-7) Morphine Sulfate (Morphine) 1 mg IVP Q6 PRN PRN Reason: Pain, Mild (1-3) Mycophenolate Mofetil (Cellcept Cap) 250 mg PO BID [facility] Last Admin: 03/11/17 17:28 Dose: 250 mg Pantoprazole Sodium (Protonix Ec Tab) 40 mg PO DAILY [facility] Last Admin: 03/11/17 09:41 Dose: 40 mg Prednisone (Prednisone Tab) 5 mg PO DAILY [facility] Last Admin: 03/11/17 09:41 Dose: 5 mg Saccharomyces Boulardii (Florastor) 250 mg PO BID [facility] Last Admin: 03/11/17 17:28 Dose: 250 mg Trimethoprim/Sulfamethoxazole (Bactrim Ds Tab) 1 tab PO MOWEFR [facility] Last Admin: 03/11/17 17:28 Dose: 1 tab - Labs Labs: 03/12/17 05:05 03/11/17 05:20 PT 12.5 Seconds (9.8-13.1) 03/10/17 13:10 INR 1.2 (0.9-1.2) 03/10/17 13:10 APTT 28.4 Seconds (25.6-37.1) 03/10/17 13:10 - Constitutional Appears: Well, No Acute Distress, Cachectic - Head Exam Head Exam: ATRAUMATIC, NORMOCEPHALIC - Eye Exam Eye Exam: EOMI, Normal appearance, PERRL. absent: Nystagmus - Neck Exam Neck Exam: Full ROM. absent: Lymphadenopathy - Respiratory Exam Respiratory Exam: Clear to Ausculation Bilateral, NORMAL BREATHING PATTERN. absent: Rales, Rhonchi, Wheezes - Cardiovascular Exam Cardiovascular Exam: REGULAR RHYTHM, +S1, +S2. absent: Murmur - GI/Abdominal Exam GI & Abdominal Exam: Soft, Tenderness (LLQ tenderness on deep palpation), Normal Bowel Sounds - Extremities Exam Extremities Exam: Full ROM. absent: Joint Swelling, Pedal Edema - Back Exam Back Exam: NORMAL INSPECTION. absent: vertebral tenderness - Neurological Exam Neurological Exam: Alert, CN II-XII Intact, Oriented x3, Reflexes Normal - Psychiatric Exam Psychiatric exam: Normal Mood - Skin Skin Exam: Dry, Pallor, Warm Assessment and Plan - Assessment and Plan (Free Text) Assessment: 61 YO F w/ PMH of renal transplant 11 years ago, DM, multiple admissions for diverticulitis presents w/ left lower back pain radiating to left lower quadrant of the abdomen. 1) Diverticulitis - Liquid diet - WBC: 8.7 today - Meropenem 1gm Q12 - Pain controlled with morphine - IV fluids - Surgery consult Dr. Knowles: No plans for surgical intervention at this time. - stool C. Diff antigen + - Continue Flagyl 500mg PO q8 2) Hypercalcemia - Likely secondary to CKD - Continue w/ Cinacalet 30 mg PO daily - IV hydration - F/U Ca tomorrow 3) CKD - BUN:25 Creatinine: 0.8, Mg 1.2, Ph 3.0 - Dr. Newton Gray has been consulted - Continue IV hydration 4) DM2 - Currently patient not on treatment - Last HBA1C on 12/18/16 was: 7.3 - F/U w/ HBA1C 5) Chronic UTI - H/O ESBL - PT takes Bactrim DS M- W- for prophylaxis - Meropenum 1 gm Q12 - Urine cx E coli. 6) Prophylaxis GI: PPI and probiotics on board DVT Prophylaxis: SCD
[2017-03-12] MEDS: Meropenem 1 GM in Sodium Chloride 0.9% 100 ML IVPB SCH ×2 (10:19→21:02)
[2017-03-12] MEDS: Pantoprazole 40 mg EC Tab PO SCH (10:20)
[2017-03-12] MEDS: Saccharomyces Boulardi 250 mg Cap PO SCH ×2 (10:21→16:52)
[2017-03-12] MEDS: PROGRAF 5 MG PO SCH ×2 (10:22→16:52)
[2017-03-13 06:27] LABS: HEMATOCRIT 32.8 % (34.0-47.0); MEAN CELL VOLUME 90.1 fl (81.0-99.0); MEAN CORPUSCULAR HEMOGLOBIN 29.2 pg (27.0-31.0); MEAN CORPUSCULAR HGB CONC 32.4 g/dL (33.0-37.0); RED CELL DISTRIBUTION WIDTH 15.3 % (11.5-14.5); WHITE BLOOD COUNT 7.3 K/uL (4.8-10.8)
[2017-03-13 06:34] LABS: BLOOD UREA NITROGEN 15 mg/dl (7-17); CARBON DIOXIDE 27 mmol/L (22-30); CHLORIDE 101 mmol/L (98-107); GFR AFRICAN-AMERICAN > 60; GLUCOSE,RANDOM 88 mg/dL (65-105); SODIUM 136 mmol/l (132-148)
--- NOTE | 2017-03-13 07:39 | CP.PCM.PN ---
<Jason Trevino - Last Filed: 03/13/17 13:37> Subjective - Date & Time of Evaluation Date of Evaluation: 03/13/17 Time of Evaluation: 07:00 - Subjective Subjective: General Surgery Progress Note for Dr. Knowles Patient seen and examined at bedside this AM. Patient resting in bed comfortably. She had 2 soft BM overnight. She states her abdominal pain has improved and controlled. Will advance to soft diet since she is tolerating liquid and pain improved. Denies fever/chills, cp, sob, n/v/d, constipation. Objective - Vital Signs/Intake and Output Vital Signs (last 24 hours): Temp Pulse Resp BP Pulse Ox 98.1 F 87 18 111/68 99 03/13/17 04:57 03/13/17 04:57 03/13/17 04:57 03/13/17 04:57 03/13/17 04:57 - Medications Medications: Current Medications Acetaminophen (Tylenol 325mg Tab) 650 mg PO Q4H PRN PRN Reason: Temp >100 Amlodipine Besylate (Norvasc) 5 mg PO DAILY [facility] Last Admin: 03/12/17 10:20 Dose: 5 mg Cinacalcet (Sensipar) 30 mg PO DAILY [facility] Last Admin: 03/12/17 10:21 Dose: 30 mg Docusate Sodium (Colace) 100 mg PO BID [facility] Last Admin: 03/12/17 16:53 Dose: 100 mg Home Med (Tacrolimus [Prograf]) 5 mg PO BID [facility] Last Admin: 03/12/17 16:52 Dose: 5 mg Meropenem 1 gm/ Sodium (Chloride) 100 mls @ 100 mls/hr IVPB Q12 [facility] Last Admin: 03/12/17 21:02 Dose: 100 mls/hr Metoclopramide HCl (Reglan) 10 mg IVP Q6 PRN PRN Reason: Nausea/Vomiting Metronidazole (Flagyl) 500 mg PO Q8 [facility] Last Admin: 03/13/17 00:55 Dose: 500 mg Morphine Sulfate (Morphine) 2 mg IVP Q6 PRN PRN Reason: Pain, moderate (4-7) Morphine Sulfate (Morphine) 1 mg IVP Q6 PRN PRN Reason: Pain, Mild (1-3) Mycophenolate Mofetil (Cellcept Cap) 250 mg PO BID [facility] Last Admin: 03/12/17 16:52 Dose: 250 mg Pantoprazole Sodium (Protonix Ec Tab) 40 mg PO DAILY [facility] Last Admin: 03/12/17 10:20 Dose: 40 mg Prednisone (Prednisone Tab) 5 mg PO DAILY [facility] Last Admin: 03/12/17 10:20 Dose: 5 mg Saccharomyces Boulardii (Florastor) 250 mg PO BID [facility] Last Admin: 03/12/17 16:52 Dose: 250 mg Trimethoprim/Sulfamethoxazole (Bactrim Ds Tab) 1 tab PO MOWEFR [facility] Last Admin: 03/11/17 17:28 Dose: 1 tab - Labs Labs: 03/13/17 05:15 03/13/17 05:15 PT 12.5 Seconds (9.8-13.1) 03/10/17 13:10 INR 1.2 (0.9-1.2) 03/10/17 13:10 APTT 28.4 Seconds (25.6-37.1) 03/10/17 13:10 - Constitutional Appears: No Acute Distress - Head Exam Head Exam: ATRAUMATIC, NORMOCEPHALIC - Eye Exam Eye Exam: Normal appearance - Neck Exam Neck Exam: Full ROM - Respiratory Exam Respiratory Exam: NORMAL BREATHING PATTERN - Cardiovascular Exam Cardiovascular Exam: REGULAR RHYTHM - GI/Abdominal Exam GI & Abdominal Exam: Soft, Tenderness (minimal in LLQ). absent: Distended, Firm , Guarding, Rigid, Rebound - Extremities Exam Extremities Exam: Normal Capillary Refill - Neurological Exam Neurological Exam: Alert, Awake, Oriented x3 - Psychiatric Exam Psychiatric exam: Normal Affect, Normal Mood - Skin Skin Exam: Dry, Intact, Normal Color, Warm Assessment and Plan - Assessment and Plan (Free Text) Plan: 61F with diverticulitis and c diff colitis -Adavnce to Soft diet -C diff serology + -Continue IV Abx as per ID -IVF -Pain control -OOB/PT -Will DW Dr Eleni Trevino PGY1 <Jean Claude Knowles - Last Filed: 03/17/17 18:25> Objective - Vital Signs/Intake and Output Vital Signs (last 24 hours): Temp Pulse Resp BP Pulse Ox 98.3 F 94 H 18 131/75 99 03/17/17 16:11 03/17/17 16:11 03/17/17 16:11 03/17/17 16:11 03/17/17 16:11 Intake and Output: 03/17/17 03/17/17 06:59 18:59 Intake Total 960 Balance 960 - Medications Medications: Current Medications Acetaminophen (Tylenol 325mg Tab) 650 mg PO Q4H PRN PRN Reason: Temp >100 Amlodipine Besylate (Norvasc) 5 mg PO DAILY [facility] Last Admin: 03/17/17 09:08 Dose: 5 mg Bisacodyl (Dulcolax) 5 mg PO DAILY PRN PRN Reason: Constipation Cinacalcet (Sensipar) 30 mg PO DAILY [facility] Last Admin: 03/17/17 09:08 Dose: 30 mg Diphenhydramine HCl (Benadryl) 25 mg IVP Q6 PRN PRN Reason: Allergy symptoms Docusate Sodium (Colace) 100 mg PO BID [facility] Last Admin: 03/17/17 16:01 Dose: Not Given Home Med (Tacrolimus [Prograf]) 5 mg PO BID [facility] Last Admin: 03/17/17 16:00 Dose: 5 mg Meropenem 1 gm/ Sodium (Chloride) 100 mls @ 100 mls/hr IVPB Q12 [facility] Last Admin: 03/17/17 09:05 Dose: 100 mls/hr Iron Sucrose 100 mg/ Sodium (Chloride) 105 mls @ 105 mls/hr IVPB DAILY [facility] Stop: 03/18/17 09:01 Last Admin: 03/17/17 11:34 Dose: 105 mls/hr Lidocaine (Lidoderm) 1 ea TD DAILY [facility] Last Admin: 03/17/17 09:05 Dose: 1 ea Metoclopramide HCl (Reglan) 10 mg IVP Q6 PRN PRN Reason: Nausea/Vomiting Metronidazole (Flagyl) 500 mg PO Q8 [facility] Last Admin: 03/17/17 16:00 Dose: 500 mg Mycophenolate Mofetil (Cellcept Cap) 250 mg PO BID [facility] Last Admin: 03/17/17 16:01 Dose: 250 mg Ondansetron HCl (Zofran Inj) 4 mg IVP Q4 PRN PRN Reason: Nausea/Vomiting Last Admin: 03/15/17 15:46 Dose: 4 mg Pantoprazole Sodium (Protonix Ec Tab) 40 mg PO DAILY [facility] Last Admin: 03/17/17 09:14 Dose: 40 mg Prednisone (Prednisone Tab) 5 mg PO DAILY [facility] Last Admin: 03/17/17 09:14 Dose: 5 mg Saccharomyces Boulardii (Florastor) 250 mg PO BID [facility] Last Admin: 03/17/17 16:00 Dose: 250 mg Sennosides (Senokot Tab) 17.2 mg PO HS [facility] Last Admin: 03/16/17 22:26 Dose: 17.2 mg Tramadol HCl (Ultram) 50 mg PO Q6 PRN PRN Reason: Pain, severe (8-10) Last Admin: 03/17/17 15:58 Dose: 50 mg - Labs Labs: 03/17/17 05:30 03/17/17 05:30 PT 12.5 Seconds (9.8-13.1) 03/10/17 13:10 INR 1.2 (0.9-1.2) 03/10/17 13:10 APTT 28.4 Seconds (25.6-37.1) 03/10/17 13:10 Attending/Attestation - Attestation I have personally seen and examined this patient.: Yes I have fully participated in the care of the patient.: Yes I have reviewed all pertinent clinical information, including history, physical exam and plan: Yes Notes (Text): 03/17/17 18:24 Pt was seen and examined at bedside Agree with above note and assessment Pt with Diverticulitis with C diff Pt is little worse today Repeat CT scan if no improvement C/w current mx.
[2017-03-13] MEDS: Meropenem 1 GM in Sodium Chloride 0.9% 100 ML IVPB SCH ×2 (09:14→21:31)
[2017-03-13] MEDS: Saccharomyces Boulardi 250 mg Cap PO SCH ×2 (09:17→16:17)
[2017-03-13] MEDS: PROGRAF 5 MG PO SCH ×2 (09:18→16:15)
[2017-03-13] MEDS: Pantoprazole 40 mg EC Tab PO SCH (09:18)
--- NOTE | 2017-03-13 10:40 | CP.PCM.PN ---
<Malinda Castillo - Last Filed: 03/13/17 12:51> Objective - Vital Signs/Intake and Output Vital Signs (last 24 hours): Temp Pulse Resp BP Pulse Ox 97.7 F 89 18 138/74 100 03/13/17 12:05 03/13/17 12:05 03/13/17 12:05 03/13/17 12:05 03/13/17 12:05 - Medications Medications: Current Medications Acetaminophen (Tylenol 325mg Tab) 650 mg PO Q4H PRN PRN Reason: Temp >100 Amlodipine Besylate (Norvasc) 5 mg PO DAILY [facility] Last Admin: 03/13/17 09:17 Dose: 5 mg Cinacalcet (Sensipar) 30 mg PO DAILY [facility] Last Admin: 03/13/17 09:17 Dose: 30 mg Docusate Sodium (Colace) 100 mg PO BID [facility] Last Admin: 03/13/17 09:17 Dose: 100 mg Home Med (Tacrolimus [Prograf]) 5 mg PO BID [facility] Last Admin: 03/13/17 09:18 Dose: 5 mg Meropenem 1 gm/ Sodium (Chloride) 100 mls @ 100 mls/hr IVPB Q12 [facility] Last Admin: 03/13/17 09:14 Dose: 100 mls/hr Lidocaine (Lidoderm) 1 ea TD DAILY [facility] Last Admin: 03/13/17 10:55 Dose: 1 ea Metoclopramide HCl (Reglan) 10 mg IVP Q6 PRN PRN Reason: Nausea/Vomiting Metronidazole (Flagyl) 500 mg PO Q8 [facility] Last Admin: 03/13/17 09:17 Dose: 500 mg Morphine Sulfate (Morphine) 2 mg IVP Q6 PRN PRN Reason: Pain, moderate (4-7) Morphine Sulfate (Morphine) 1 mg IVP Q6 PRN PRN Reason: Pain, Mild (1-3) Mycophenolate Mofetil (Cellcept Cap) 250 mg PO BID [facility] Last Admin: 03/13/17 09:19 Dose: 250 mg Pantoprazole Sodium (Protonix Ec Tab) 40 mg PO DAILY [facility] Last Admin: 03/13/17 09:18 Dose: 40 mg Prednisone (Prednisone Tab) 5 mg PO DAILY [facility] Last Admin: 03/13/17 09:18 Dose: 5 mg Saccharomyces Boulardii (Florastor) 250 mg PO BID [facility] Last Admin: 03/13/17 09:17 Dose: 250 mg Trimethoprim/Sulfamethoxazole (Bactrim Ds Tab) 1 tab PO MOWEFR [facility] Last Admin: 03/11/17 17:28 Dose: 1 tab - Labs Labs: 03/13/17 05:15 03/13/17 05:15 PT 12.5 Seconds (9.8-13.1) 03/10/17 13:10 INR 1.2 (0.9-1.2) 03/10/17 13:10 APTT 28.4 Seconds (25.6-37.1) 03/10/17 13:10 <Darlyn Yee - Last Filed: 03/14/17 15:20> Subjective - Date & Time of Evaluation Date of Evaluation: 03/13/17 Time of Evaluation: 10:40 - Subjective Subjective: ID Note- Pt. seen and examined today with her son at her bedside. Pt. is in good spirits. she states she feels better and denies any abdominal or back pain today, denies any nausea. denies any diarrhea today only formed stool. Objective - Vital Signs/Intake and Output Vital Signs (last 24 hours): Temp Pulse Resp BP Pulse Ox 98.8 F 103 H 18 130/68 99 03/13/17 08:04 03/13/17 09:17 03/13/17 08:04 03/13/17 09:17 03/13/17 08:04 - Medications Medications: Current Medications Acetaminophen (Tylenol 325mg Tab) 650 mg PO Q4H PRN PRN Reason: Temp >100 Amlodipine Besylate (Norvasc) 5 mg PO DAILY [facility] Last Admin: 03/13/17 09:17 Dose: 5 mg Cinacalcet (Sensipar) 30 mg PO DAILY [facility] Last Admin: 03/13/17 09:17 Dose: 30 mg Docusate Sodium (Colace) 100 mg PO BID [facility] Last Admin: 03/13/17 09:17 Dose: 100 mg Home Med (Tacrolimus [Prograf]) 5 mg PO BID [facility] Last Admin: 03/13/17 09:18 Dose: 5 mg Meropenem 1 gm/ Sodium (Chloride) 100 mls @ 100 mls/hr IVPB Q12 [facility] Last Admin: 03/13/17 09:14 Dose: 100 mls/hr Lidocaine (Lidoderm) 1 ea TD DAILY [facility] Metoclopramide HCl (Reglan) 10 mg IVP Q6 PRN PRN Reason: Nausea/Vomiting Metronidazole (Flagyl) 500 mg PO Q8 [facility] Last Admin: 03/13/17 09:17 Dose: 500 mg Morphine Sulfate (Morphine) 2 mg IVP Q6 PRN PRN Reason: Pain, moderate (4-7) Morphine Sulfate (Morphine) 1 mg IVP Q6 PRN PRN Reason: Pain, Mild (1-3) Mycophenolate Mofetil (Cellcept Cap) 250 mg PO BID [facility] Last Admin: 03/13/17 09:19 Dose: 250 mg Pantoprazole Sodium (Protonix Ec Tab) 40 mg PO DAILY [facility] Last Admin: 03/13/17 09:18 Dose: 40 mg Prednisone (Prednisone Tab) 5 mg PO DAILY [facility] Last Admin: 03/13/17 09:18 Dose: 5 mg Saccharomyces Boulardii (Florastor) 250 mg PO BID [facility] Last Admin: 03/13/17 09:17 Dose: 250 mg Trimethoprim/Sulfamethoxazole (Bactrim Ds Tab) 1 tab PO MOWEFR [facility] Last Admin: 03/11/17 17:28 Dose: 1 tab - Labs Labs: 03/13/17 05:15 03/13/17 05:15 PT 12.5 Seconds (9.8-13.1) 03/10/17 13:10 INR 1.2 (0.9-1.2) 03/10/17 13:10 APTT 28.4 Seconds (25.6-37.1) 03/10/17 13:10 - Additional Findings Additional findings: - Constitutional Appears: No Acute Distress, Chronically Ill - Head Exam Head Exam: ATRAUMATIC - Eye Exam Eye Exam: EOMI, PERRL - ENT Exam ENT Exam: Normal Oropharynx - Neck Exam Neck exam: Positive for: Full Rom - Respiratory Exam Respiratory Exam: Clear to Auscultation Bilateral, NORMAL BREATHING PATTERN - Cardiovascular Exam Cardiovascular Exam: RRR, +S1, +S2 - GI/Abdominal Exam GI & Abdominal Exam: Normal Bowel Sounds, Soft Additional comments: No tender ness with palpation No guarding no rebound No distention soft - Extremities Exam Extremities exam: Positive for: normal inspection - Neurological Exam Neurological exam: Alert, Oriented x 3 Microbiology 03/10/17 14:15 Blood Blood Culture - Preliminary NO GROWTH AFTER 4 DAYS 03/10/17 14:30 Blood Blood Culture - Preliminary NO GROWTH AFTER 4 DAYS 03/10/17 16:25 Urine Urine Culture - Final Escherichia Coli Assessment and Plan (1) UTI (urinary tract infection) Status: Acute (2) Acute diverticulitis Status: Acute (3) 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 pseudo diverticulum vs abscess as per CT report. clinically improving. afebrile Leukocytosis has resolved. Ct report noted. stool c.diff- positive urine cx- e.coli NOT esbl blood cx- neg x 2 plan- In light of previous ESBL uti and pt. being immune suppressed and ? allergy to cephalosporins advise to continue with Iv meropenm eventhough this admission urine cx is NOt ESBL. day #4 of meropenem. advise total of 14 days of Iv abx. advise to continue with po metronidazole for positive c.diff colitis. day #[address] on probiotics while on Iv abx. check repeat stool c.diff .
[2017-03-13] MEDS: Lidocaine 5% Patch TD SCH (10:55)
--- NOTE | 2017-03-13 12:37 | CP.PCM.PN ---
<Malinda Castillo - Last Filed: 03/13/17 16:02> Subjective - Date & Time of Evaluation Date of Evaluation: 03/13/17 Time of Evaluation: 06:50 - Subjective Subjective: Patient seen and examined today at bedside, no acute overnight events, she reports feeling well, slept well through the night. States left side back pain radiated to left hip since yesterday. Reports had normal BM yesterday. Reports improvement of abdominal pain. Denies fever, nausea, vomiting, no diarrhea, no urinary symptoms. States good appetite. Objective - Vital Signs/Intake and Output Vital Signs (last 24 hours): Temp Pulse Resp BP Pulse Ox 97.7 F 89 18 138/74 100 03/13/17 12:05 03/13/17 12:05 03/13/17 12:05 03/13/17 12:05 03/13/17 12:05 - Medications Medications: Current Medications Acetaminophen (Tylenol 325mg Tab) 650 mg PO Q4H PRN PRN Reason: Temp >100 Amlodipine Besylate (Norvasc) [address] [facility] Last Admin: 03/13/17 09:17 Dose: 5 mg Cinacalcet (Sensipar) [address] [facility] Last Admin: 03/13/17 09:17 Dose: 30 mg Docusate Sodium (Colace) [address] [facility] Last Admin: 03/13/17 09:17 Dose: 100 mg Home Med (Tacrolimus [Prograf]) [address] [facility] Last Admin: 03/13/17 09:18 Dose: 5 mg Meropenem 1 gm/ Sodium (Chloride) 100 mls @ 100 mls/hr IVPB Q12 [facility] Last Admin: 03/13/17 09:14 Dose: 100 mls/hr Lidocaine (Lidoderm) [address] [facility] Last Admin: 03/13/17 10:55 Dose: 1 ea Metoclopramide HCl (Reglan) 10 mg IVP Q6 PRN PRN Reason: Nausea/Vomiting Metronidazole (Flagyl) [address] [facility] Last Admin: 03/13/17 09:17 Dose: 500 mg Morphine Sulfate (Morphine) 2 mg IVP Q6 PRN PRN Reason: Pain, moderate (4-7) Morphine Sulfate (Morphine) 1 mg IVP Q6 PRN PRN Reason: Pain, Mild (1-3) Mycophenolate Mofetil (Cellcept Cap) [address] [facility] Last Admin: 03/13/17 09:19 Dose: 250 mg Pantoprazole Sodium (Protonix Ec Tab) [address] [facility] Last Admin: 03/13/17 09:18 Dose: 40 mg Prednisone (Prednisone Tab) [address] [facility] Last Admin: 03/13/17 09:18 Dose: 5 mg Saccharomyces Boulardii (Florastor) [address] [facility] Last Admin: 03/13/17 09:17 Dose: 250 mg Trimethoprim/Sulfamethoxazole (Bactrim Ds Tab) [address] [facility] Last Admin: 03/11/17 17:28 Dose: 1 tab - Labs Labs: 03/13/17 05:15 03/13/17 05:15 PT 12.5 Seconds (9.8-13.1) 03/10/17 13:10 INR 1.2 (0.9-1.2) 03/10/17 13:10 APTT 28.4 Seconds (25.6-37.1) 03/10/17 13:10 - Constitutional Appears: Well, No Acute Distress, Cachectic - Head Exam Head Exam: ATRAUMATIC, NORMOCEPHALIC - Eye Exam Eye Exam: EOMI, Normal appearance, PERRL - Neck Exam Neck Exam: Full ROM. absent: Lymphadenopathy, Thyromegaly - Respiratory Exam Respiratory Exam: Clear to Ausculation Bilateral, NORMAL BREATHING PATTERN. absent: Rales, Rhonchi, Wheezes - Cardiovascular Exam Cardiovascular Exam: REGULAR RHYTHM, +S1, +S2. absent: Murmur - GI/Abdominal Exam GI & Abdominal Exam: Soft, Normal Bowel Sounds. absent: Tenderness (LLQ pain reproducible with deep palpation.), Organomegaly - Extremities Exam Extremities Exam: Full ROM. absent: Calf Tenderness Additional comments: Bilateral A/V fistulas observed on arms. - Back Exam Back Exam: CVA tenderness (L), NORMAL INSPECTION. absent: CVA tenderness (R), vertebral tenderness - Neurological Exam Neurological Exam: Alert, CN II-XII Intact, Oriented x3 - Psychiatric Exam Psychiatric exam: Normal Mood - Skin Skin Exam: Dry, Pallor, Warm Assessment and Plan - Assessment and Plan (Free Text) Assessment: 61 YO F w/ PMH of renal transplant 11 years ago, DM, multiple admissions for diverticulitis presents w/ left lower back pain radiating to left lower quadrant of the abdomen. 1) Diverticulitis - Soft diet started today - WBC: 7.3 today - Meropenem 1gm Q12 - Pain controlled with morphine - IV fluids - Surgery consult Dr. Knowles: No plans for surgical intervention at this time. - stool C. Diff antigen + - Continue Flagyl 500mg PO q8 - Probiotics - GI consulted 2) Hypercalcemia - Likely secondary to CKD - Continue w/ Cinacalet 30 mg PO daily - IV hydration - Ca 12.0 today - Hemo/onco consulted (severe weight loss 60 lbs) 3) CKD - BUN:15 Creatinine: 0.8 - Continue IV hydration 4) DM2 - Currently patient not on treatment - Last HBA1C on 12/18/16 was: 7.3 - F/U w/ HBA1C 5) Chronic UTI - H/O ESBL - PT takes Bactrim DS M- W- F for prophylaxis - Meropenum 1 gm Q12 -ID consulted for PO abx 6) Prophylaxis GI: PPI and probiotics on board DVT Prophylaxis: SCD <Virginia Boyer - Last Filed: 03/14/17 07:42> Objective - Vital Signs/Intake and Output Vital Signs (last 24 hours): Temp Pulse Resp BP Pulse Ox 98.1 F 99 H 18 135/83 99 03/14/17 04:40 03/14/17 04:40 03/14/17 04:40 03/14/17 04:40 03/14/17 04:40 - Medications Medications: Current Medications Acetaminophen (Tylenol 325mg Tab) 650 mg PO Q4H PRN PRN Reason: Temp >100 Amlodipine Besylate (Norvasc) [address] [facility] Last Admin: 03/13/17 09:17 Dose: 5 mg Cinacalcet (Sensipar) [address] [facility] Last Admin: 03/13/17 09:17 Dose: 30 mg Docusate Sodium (Colace) [address] [facility] Last Admin: 03/13/17 16:16 Dose: 100 mg Home Med (Tacrolimus [Prograf]) [address] [facility] Last Admin: 03/13/17 16:15 Dose: 5 mg Meropenem 1 gm/ Sodium (Chloride) 100 mls @ 100 mls/hr IVPB Q12 [facility] Last Admin: 03/13/17 21:31 Dose: 100 mls/hr Iron Sucrose 100 mg/ Sodium (Chloride) 105 mls @ 105 mls/hr IVPB DAILY [facility] Stop: 03/18/17 09:01 Lidocaine (Lidoderm) [address] [facility] Last Admin: 03/13/17 10:55 Dose: 1 ea Metoclopramide HCl (Reglan) 10 mg IVP Q6 PRN PRN Reason: Nausea/Vomiting Metronidazole (Flagyl) [address] [facility] Last Admin: 03/14/17 01:05 Dose: 500 mg Morphine Sulfate (Morphine) 2 mg IVP Q6 PRN PRN Reason: Pain, moderate (4-7) Morphine Sulfate (Morphine) 1 mg IVP Q6 PRN PRN Reason: Pain, Mild (1-3) Mycophenolate Mofetil (Cellcept Cap) [address] [facility] Last Admin: 03/13/17 16:16 Dose: 250 mg Pantoprazole Sodium (Protonix Ec Tab) [address] [facility] Last Admin: 03/13/17 09:18 Dose: 40 mg Prednisone (Prednisone Tab) [address] [facility] Last Admin: 03/13/17 09:18 Dose: 5 mg Saccharomyces Boulardii (Florastor) [address] [facility] Last Admin: 03/13/17 16:17 Dose: 250 mg Trimethoprim/Sulfamethoxazole (Bactrim Ds Tab) [address] [facility] Last Admin: 03/13/17 16:16 Dose: 1 tab - Labs Labs: 03/14/17 05:00 03/14/17 05:00 PT 12.5 Seconds (9.8-13.1) 03/10/17 13:10 INR 1.2 (0.9-1.2) 03/10/17 13:10 APTT 28.4 Seconds (25.6-37.1) 03/10/17 13:10 - Skin Additional comments: ADDENDUM ATTENDING NOTE PATIENT SEEN BY ME AND EXAMINED. CHART REVIEWED. CASE DISCUSSED WITH RESIDENT. NOT CLEAR TO ME THAT HYPERCALCEMIA IN LIGHT OF 60 POUNT WEIGHT LOSS IS ONLY DUE TO CKD. WILL GET HEME/ONCOLOGY CONSULT TO HELP FURTHER EVALUATE. ALSO GI CONSULT TO BE CALLED BECAUSE OF ATYPICAL CLINICAL PRESENTATION OF "DIVERTICULITIS AND C.DIFF COLITIS"
[2017-03-13] MEDS: Tmp-Smz 800 mg-160 mg DS Tab PO SCH (16:16)
--- NOTE | 2017-03-13 20:14 | CP.PCM.CON ---
History of Present Illness - History of Present Illness History of Present Illness: Hematology Consult Referred by Dr. Lala for weight loss and hyperclacemia HPI- Ms Cleve is 61 y/o F with h/o renal transplant 11 years ago, DM, multiple admissions for diverticulitis who was admitted with LLQ pain associated with vomiting. CT scan showed diverticulitis with possible abscess. Seen by surgery, GI and ID. Being managed conservatively with IV antibiotics. She started oral diet today and tolerating well so far. Her abdominal pain is better. She had multiple hospital admissions in last 3-4 months and had been in long-term recently. She also have history of weight loss with gradual weight loss of around 10 lbs in last 7-8 months. Her prior work up including CT C/A/P did not show any evidence of malignancy. Prior SPEP/SIFE showed faint band in lambda region (12/20/16). PMH: Anemia, CKD ( formally on HD but not after receiving Right kidney transplant in 2004), HTN, DM2, HLD, , HX of falls, Diverticulitis, Recurrent UTI. PSH: Bilateral Upper arm AV fistulas, , Right kidney transplant ( Received HD for 4 to 5 years) Allergies: Cefazolin, Iodine, Vancomycin which causes pruritus. 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, Currently living at home with daughter, No tobacco, NO alcohol, NO illicit drug use Family Hx: Aunt (Asthma), Dad (Renal Failure), Brother x2 ( Healthy) Review of Systems - Review of Systems All systems: reviewed and no additional remarkable complaints except Review of Systems: as in HPI Past Patient History - Infectious Disease Hx of Infectious Diseases: None - Past Medical History & Family History Past Medical History?: Yes - Past Social History Smoking Status: Never Smoked Home Situation {Lives}: With Family - CARDIAC Hx Hypercholesterolemia: Yes Hx Hypertension: Yes - PULMONARY Hx Respiratory Disorders: No - NEUROLOGICAL Hx Neurological Disorder: No - HEENT Hx HEENT Problems: No - RENAL Hx Chronic Kidney Disease: Yes (kidney transplant) - ENDOCRINE/METABOLIC Hx Endocrine Disorders: Yes Hx Diabetes Mellitus Type 2: Yes - HEMATOLOGICAL/ONCOLOGICAL Hx Anemia: Yes - INTEGUMENTARY Hx Dermatological Problems: No - MUSCULOSKELETAL/RHEUMATOLOGICAL Hx Falls: Yes - GASTROINTESTINAL Hx Gastrointestinal Disorders: Yes Hx Colitis: Yes - GENITOURINARY/GYNECOLOGICAL Hx Genitourinary Disorders: Yes (UTI) Hx Urinary Tract Infection: Yes - PSYCHIATRIC Hx Psychophysiologic Disorder: No Hx Substance Use: No - SURGICAL HISTORY Hx Surgeries: Yes Hx Arteriovenous Shunt: Yes Hx Section: Yes (x2) Hx Vascular Access Device: Yes Other/Comment: RIGHT KIDNEY TRANSPLANT - ANESTHESIA Hx Anesthesia: Yes Hx Anesthesia Reactions: No Hx Malignant Hyperthermia: No Meds Allergies/Adverse Reactions: Allergies Allergy/AdvReac Type Severity Reaction Status Date / Time cefazolin Allergy ITCHING Verified 03/13/16 12:44 iodine Allergy ITCHING Verified 03/13/16 12:44 vancomycin Allergy ITCHING Verified 03/13/16 12:44 - Medications Medications: Current Medications Acetaminophen (Tylenol 325mg Tab) 650 mg PO Q4H PRN PRN Reason: Temp >100 Amlodipine Besylate (Norvasc) 5 mg PO DAILY [facility] Last Admin: 03/13/17 09:17 Dose: 5 mg Cinacalcet (Sensipar) 30 mg PO DAILY [facility] Last Admin: 03/13/17 09:17 Dose: 30 mg Docusate Sodium (Colace) 100 mg PO BID [facility] Last Admin: 03/13/17 16:16 Dose: 100 mg Home Med (Tacrolimus [Prograf]) 5 mg PO BID [facility] Last Admin: 03/13/17 16:15 Dose: 5 mg Meropenem 1 gm/ Sodium (Chloride) 100 mls @ 100 mls/hr IVPB Q12 [facility] Last Admin: 03/13/17 09:14 Dose: 100 mls/hr Lidocaine (Lidoderm) 1 ea TD DAILY [facility] Last Admin: 03/13/17 10:55 Dose: 1 ea Metoclopramide HCl (Reglan) 10 mg IVP Q6 PRN PRN Reason: Nausea/Vomiting Metronidazole (Flagyl) 500 mg PO Q8 [facility] Last Admin: 03/13/17 16:16 Dose: 500 mg Morphine Sulfate (Morphine) 2 mg IVP Q6 PRN PRN Reason: Pain, moderate (4-7) Morphine Sulfate (Morphine) 1 mg IVP Q6 PRN PRN Reason: Pain, Mild (1-3) Mycophenolate Mofetil (Cellcept Cap) 250 mg PO BID [facility] Last Admin: 03/13/17 16:16 Dose: 250 mg Pantoprazole Sodium (Protonix Ec Tab) 40 mg PO DAILY [facility] Last Admin: 03/13/17 09:18 Dose: 40 mg Prednisone (Prednisone Tab) 5 mg PO DAILY [facility] Last Admin: 03/13/17 09:18 Dose: 5 mg Saccharomyces Boulardii (Florastor) 250 mg PO BID [facility] Last Admin: 03/13/17 16:17 Dose: 250 mg Trimethoprim/Sulfamethoxazole (Bactrim Ds Tab) 1 tab PO MOWEFR [facility] Last Admin: 03/13/17 16:16 Dose: 1 tab Physical Exam - Head Exam Head Exam: ATRAUMATIC, NORMAL INSPECTION - Eye Exam Eye Exam: EOMI, PERRL - ENT Exam ENT Exam: Mucous Membranes Moist - Neck Exam Neck exam: Negative for: Lymphadenopathy - Respiratory Exam Respiratory Exam: Clear to Auscultation Bilateral - Cardiovascular Exam Cardiovascular Exam: REGULAR RHYTHM - GI/Abdominal Exam GI & Abdominal Exam: Normal Bowel Sounds, Soft. absent: Tenderness - Extremities Exam Extremities exam: Negative for: pedal edema - Neurological Exam Neurological exam: Alert, Oriented x3 Results - Vital Signs Recent Vital Signs: Last Vital Signs Temp 98.6 F 03/13/17 19:42 Pulse 97 H 03/13/17 19:42 Resp 20 03/13/17 19:42 BP 118/73 03/13/17 19:42 Pulse Ox 99 03/13/17 19:42 - Labs Result Diagrams: 03/13/17 05:15 03/13/17 05:15 Labs: Laboratory Results - last 24 hr 03/11/17 03/12/17 03/12/17 20:45 12:02 16:22 WBC RBC Hgb Hct MCV MCH MCHC RDW Plt Count Sodium Potassium Chloride Carbon Dioxide Anion Gap BUN Creatinine Est GFR ( Amer) Est GFR (Non-Af Amer) POC Glucose (mg/dL) 125 H 110 Random Glucose Calcium C. difficile Ag & Toxin Positive antigen 03/12/17 03/13/17 03/13/17 21:17 05:15 05:15 WBC 7.3 RBC 3.64 L Hgb 10.6 L Hct 32.8 L MCV 90.1 MCH 29.2 MCHC 32.4 L RDW 15.3 H Plt Count 220 Sodium 136 Potassium 4.0 Chloride 101 Carbon Dioxide 27 Anion Gap 12 BUN 15 Creatinine 0.8 Est GFR ( Amer) > 60 Est GFR (Non-Af Amer) > 60 POC Glucose (mg/dL) 101 Random Glucose 88 Calcium 12.0 H C. difficile Ag & Toxin 03/13/17 03/13/17 03/13/17 05:33 11:01 16:43 WBC RBC Hgb Hct MCV MCH MCHC RDW Plt Count Sodium Potassium Chloride Carbon Dioxide Anion Gap BUN Creatinine Est GFR ( Amer) Est GFR (Non-Af Amer) POC Glucose (mg/dL) 86 106 208 H Random Glucose Calcium C. difficile Ag & Toxin Assessment & Plan - Assessment and Plan (Free Text) Assessment: Chronic mild hypercalcemia- likely due to underlying CKD with secondary hyperparathyroidism. Weight loss- unclear etiology, no evidence of malignancy. Likely related to multiple hospital admission, long-term stay and multiple medical problems. She also has iron def anemia. Prior stool ocult had been positive. Monitor for overt GI bleeding. She should follow up with GI after resolution of acute diverticultis. Monitor blood counts routinely. Thank you for the consult Marvin Parks MD - Date & Time Date: 03/13/17 Time: 20:14
--- NOTE | 2017-03-13 23:39 | CP.PCM.PN ---
Subjective - Date & Time of Evaluation Date of Evaluation: 03/13/17 Time of Evaluation: 15:00 - Subjective Subjective: SEEN ON RENAL F/U FEELS IMPROVED RENAL FUNCTION REMAINS STABLE ALL PREVIOUS EMR REVIEWED Objective - Vital Signs/Intake and Output Vital Signs (last 24 hours): Temp Pulse Resp BP Pulse Ox 98.6 F 97 H 20 118/73 99 03/13/17 19:42 03/13/17 19:42 03/13/17 19:42 03/13/17 19:42 03/13/17 19:42 Intake and Output: 03/13/17 03/14/17 18:59 06:59 Intake Total 400 Balance 400 - Medications Medications: Current Medications Acetaminophen (Tylenol 325mg Tab) 650 mg PO Q4H PRN PRN Reason: Temp >100 Amlodipine Besylate (Norvasc) 5 mg PO DAILY [facility] Last Admin: 03/13/17 09:17 Dose: 5 mg Cinacalcet (Sensipar) 30 mg PO DAILY [facility] Last Admin: 03/13/17 09:17 Dose: 30 mg Docusate Sodium (Colace) 100 mg PO BID [facility] Last Admin: 03/13/17 16:16 Dose: 100 mg Home Med (Tacrolimus [Prograf]) 5 mg PO BID [facility] Last Admin: 03/13/17 16:15 Dose: 5 mg Meropenem 1 gm/ Sodium (Chloride) 100 mls @ 100 mls/hr IVPB Q12 [facility] Last Admin: 03/13/17 21:31 Dose: 100 mls/hr Iron Sucrose 100 mg/ Sodium (Chloride) 105 mls @ 105 mls/hr IVPB DAILY [facility] Stop: 03/18/17 09:01 Lidocaine (Lidoderm) 1 ea TD DAILY [facility] Last Admin: 03/13/17 10:55 Dose: 1 ea Metoclopramide HCl (Reglan) 10 mg IVP Q6 PRN PRN Reason: Nausea/Vomiting Metronidazole (Flagyl) 500 mg PO Q8 [facility] Last Admin: 03/13/17 16:16 Dose: 500 mg Morphine Sulfate (Morphine) 2 mg IVP Q6 PRN PRN Reason: Pain, moderate (4-7) Morphine Sulfate (Morphine) 1 mg IVP Q6 PRN PRN Reason: Pain, Mild (1-3) Mycophenolate Mofetil (Cellcept Cap) 250 mg PO BID [facility] Last Admin: 03/13/17 16:16 Dose: 250 mg Pantoprazole Sodium (Protonix Ec Tab) 40 mg PO DAILY [facility] Last Admin: 03/13/17 09:18 Dose: 40 mg Prednisone (Prednisone Tab) 5 mg PO DAILY [facility] Last Admin: 03/13/17 09:18 Dose: 5 mg Saccharomyces Boulardii (Florastor) 250 mg PO BID [facility] Last Admin: 03/13/17 16:17 Dose: 250 mg Trimethoprim/Sulfamethoxazole (Bactrim Ds Tab) 1 tab PO MOWEFR [facility] Last Admin: 03/13/17 16:16 Dose: 1 tab - Labs Labs: 03/13/17 05:15 03/13/17 05:15 PT 12.5 Seconds (9.8-13.1) 03/10/17 13:10 INR 1.2 (0.9-1.2) 03/10/17 13:10 APTT 28.4 Seconds (25.6-37.1) 03/10/17 13:10 Assessment and Plan - Assessment and Plan (Free Text) Plan: S/P RENAL TRX .. RENAL FUNCTION STABLE RECURRENT DIVERTICULITIS ... ON IVAB C/O CURRENT CARE
[2017-03-14 06:32] LABS: HEMATOCRIT 35.2 % (34.0-47.0); MEAN CELL VOLUME 89.8 fl (81.0-99.0); MEAN CORPUSCULAR HEMOGLOBIN 28.8 pg (27.0-31.0); RED CELL DISTRIBUTION WIDTH 15.3 % (11.5-14.5); WHITE BLOOD COUNT 6.8 K/uL (4.8-10.8)
[2017-03-14 06:47] LABS: BLOOD UREA NITROGEN 18 mg/dl (7-17); CALCIUM 11.6 mg/dL (8.4-10.2); CARBON DIOXIDE 26 mmol/L (22-30); CHLORIDE 100 mmol/L (98-107); GFR AFRICAN-AMERICAN > 60; GLUCOSE,RANDOM 115 mg/dL (65-105); POTASSIUM 4.4 MMOL/L (3.6-5.0); SODIUM 134 mmol/l (132-148)
--- NOTE | 2017-03-14 08:25 | CP.PCM.PN ---
<Malinda Castillo - Last Filed: 03/14/17 15:42> Subjective - Date & Time of Evaluation Date of Evaluation: 03/14/17 Time of Evaluation: 07:00 - Subjective Subjective: Patient seen and examined today at bedside, no acute overnight events, states still has moderate pain in LLQ and back today 01/28, she feel uncomfortable today due to no BM yesterday, slept well through the night. Denies fever, nausea , vomiting, no diarrhea, no urinary symptoms. States good appetite. Objective - Vital Signs/Intake and Output Vital Signs (last 24 hours): Temp Pulse Resp BP Pulse Ox 98.1 F 99 H 18 135/83 99 03/14/17 04:40 03/14/17 07:50 03/14/17 04:40 03/14/17 04:40 03/14/17 04:40 - Medications Medications: Current Medications Acetaminophen (Tylenol 325mg Tab) 650 mg PO Q4H PRN PRN Reason: Temp >100 Amlodipine Besylate (Norvasc) 5 mg PO DAILY [facility] Last Admin: 03/13/17 09:17 Dose: 5 mg Cinacalcet (Sensipar) 30 mg PO DAILY [facility] Last Admin: 03/13/17 09:17 Dose: 30 mg Docusate Sodium (Colace) 100 mg PO BID [facility] Last Admin: 03/13/17 16:16 Dose: 100 mg Home Med (Tacrolimus [Prograf]) 5 mg PO BID [facility] Last Admin: 03/13/17 16:15 Dose: 5 mg Meropenem 1 gm/ Sodium (Chloride) 100 mls @ 100 mls/hr IVPB Q12 [facility] Last Admin: 03/13/17 21:31 Dose: 100 mls/hr Iron Sucrose 100 mg/ Sodium (Chloride) 105 mls @ 105 mls/hr IVPB DAILY [facility] Stop: 03/18/17 09:01 Lidocaine (Lidoderm) 1 ea TD DAILY [facility] Last Admin: 03/13/17 10:55 Dose: 1 ea Metoclopramide HCl (Reglan) 10 mg IVP Q6 PRN PRN Reason: Nausea/Vomiting Metronidazole (Flagyl) 500 mg PO Q8 [facility] Last Admin: 03/14/17 01:05 Dose: 500 mg Morphine Sulfate (Morphine) 2 mg IVP Q6 PRN PRN Reason: Pain, moderate (4-7) Morphine Sulfate (Morphine) 1 mg IVP Q6 PRN PRN Reason: Pain, Mild (1-3) Mycophenolate Mofetil (Cellcept Cap) 250 mg PO BID [facility] Last Admin: 03/13/17 16:16 Dose: 250 mg Pantoprazole Sodium (Protonix Ec Tab) 40 mg PO DAILY [facility] Last Admin: 03/13/17 09:18 Dose: 40 mg Prednisone (Prednisone Tab) 5 mg PO DAILY [facility] Last Admin: 03/13/17 09:18 Dose: 5 mg Saccharomyces Boulardii (Florastor) 250 mg PO BID [facility] Last Admin: 03/13/17 16:17 Dose: 250 mg Trimethoprim/Sulfamethoxazole (Bactrim Ds Tab) 1 tab PO MOWEFR [facility] Last Admin: 03/13/17 16:16 Dose: 1 tab - Labs Labs: 03/14/17 05:00 03/14/17 05:00 PT 12.5 Seconds (9.8-13.1) 03/10/17 13:10 INR 1.2 (0.9-1.2) 03/10/17 13:10 APTT 28.4 Seconds (25.6-37.1) 03/10/17 13:10 - Constitutional Appears: Well, No Acute Distress, Cachectic - Head Exam Head Exam: ATRAUMATIC, NORMOCEPHALIC - Eye Exam Eye Exam: EOMI, Normal appearance, PERRL. absent: Nystagmus - Neck Exam Neck Exam: Full ROM. absent: Lymphadenopathy, Thyromegaly - Respiratory Exam Respiratory Exam: Clear to Ausculation Bilateral, NORMAL BREATHING PATTERN. absent: Rales, Rhonchi, Wheezes - Cardiovascular Exam Cardiovascular Exam: REGULAR RHYTHM, +S1, +S2. absent: Murmur - GI/Abdominal Exam GI & Abdominal Exam: Soft, Tenderness (LLQ pain on deep palpation, no rebound.) , Normal Bowel Sounds. absent: Distended, Organomegaly - Extremities Exam Extremities Exam: Full ROM. absent: Calf Tenderness, Joint Swelling - Back Exam Back Exam: NORMAL INSPECTION. absent: CVA tenderness (L), CVA tenderness (R) ( low back pain in left side.), vertebral tenderness - Neurological Exam Neurological Exam: Alert, Awake, CN II-XII Intact, Oriented x3, Reflexes Normal - Psychiatric Exam Psychiatric exam: Normal Mood - Skin Skin Exam: Dry, Pallor, Warm Assessment and Plan - Assessment and Plan (Free Text) Assessment: 61 YO F w/ PMH of renal transplant 11 years ago, DM, multiple admissions for diverticulitis presents w/ left lower back pain radiating to left lower quadrant of the abdomen. 1) Diverticulitis - Soft diet - WBC: 6.8 today - c/w Meropenem 1gm Q12 - Pain controlled with morphine - IV fluids - stool C. Diff antigen + - c/w Flagyl 500mg PO q8 - Probiotics - GI recommends IR, ABX and surgical input. 2) Hypercalcemia - Likely secondary to CKD - Continue w/ Cinacalet 30 mg PO daily - IV hydration - Ca 11.6 today - Heme/onco consulted: Chronic mild hypercalcemia- likely due to underlying CKD with secondary hyperparathyroidism. no evidence of malignancy.She also has iron def anemia. Prior stool ocult had been positive. Monitor for overt GI bleeding. She should follow up with GI after resolution of acute diverticultis. Monitor blood counts routinely. 3) CKD - BUN:15 Creatinine: 0.8 - Continue IV hydration 4) DM2 - Currently patient not on treatment - Last HBA1C on 12/18/16 was: 7.3 - F/U w/ HBA1C 5) Chronic UTI - H/O ESBL - PT takes Bactrim DS M- W- for prophylaxis - Meropenum 1 gm Q12 -ID consulted for PO abx 6) Constipation -Docusate sodium 100 mg PO BID -Ducolax 5mg PO daily PRN -Senakot 17.2 PO HS 7) Prophylaxis GI: PPI and probiotics on board DVT Prophylaxis: SCD <Virginia Boyer - Last Filed: 03/15/17 08:31> Objective - Vital Signs/Intake and Output Vital Signs (last 24 hours): Temp Pulse Resp BP Pulse Ox 97.6 F 93 H 20 136/80 97 03/15/17 04:54 03/15/17 04:54 03/15/17 04:54 03/15/17 04:54 03/15/17 04:54 - Medications Medications: Current Medications Acetaminophen (Tylenol 325mg Tab) 650 mg PO Q4H PRN PRN Reason: Temp >100 Amlodipine Besylate (Norvasc) 5 mg PO DAILY [facility] Last Admin: 03/14/17 09:45 Dose: 5 mg Bisacodyl (Dulcolax) 5 mg PO DAILY PRN PRN Reason: Constipation Cinacalcet (Sensipar) 30 mg PO DAILY [facility] Last Admin: 03/14/17 09:44 Dose: 30 mg Docusate Sodium (Colace) 100 mg PO BID [facility] Last Admin: 03/14/17 18:00 Dose: 100 mg Home Med (Tacrolimus [Prograf]) 5 mg PO BID [facility] Last Admin: 03/14/17 18:00 Dose: 5 mg Meropenem 1 gm/ Sodium (Chloride) 100 mls @ 100 mls/hr IVPB Q12 [facility] Last Admin: 03/14/17 21:35 Dose: 100 mls/hr Iron Sucrose 100 mg/ Sodium (Chloride) 105 mls @ 105 mls/hr IVPB DAILY [facility] Stop: 03/18/17 09:01 Last Admin: 03/14/17 09:48 Dose: 105 mls/hr Lidocaine (Lidoderm) 1 ea TD DAILY [facility] Last Admin: 03/14/17 09:46 Dose: 1 ea Metoclopramide HCl (Reglan) 10 mg IVP Q6 PRN PRN Reason: Nausea/Vomiting Metronidazole (Flagyl) 500 mg PO Q8 [facility] Last Admin: 03/15/17 01:21 Dose: 500 mg Mycophenolate Mofetil (Cellcept Cap) 250 mg PO BID [facility] Last Admin: 03/14/17 17:59 Dose: 250 mg Pantoprazole Sodium (Protonix Ec Tab) 40 mg PO DAILY [facility] Last Admin: 03/14/17 09:45 Dose: 40 mg Prednisone (Prednisone Tab) 5 mg PO DAILY [facility] Last Admin: 03/14/17 09:47 Dose: 5 mg Saccharomyces Boulardii (Florastor) 250 mg PO BID [facility] Last Admin: 03/14/17 18:00 Dose: 250 mg Sennosides (Senokot Tab) 17.2 mg PO HS [facility] Last Admin: 03/14/17 21:36 Dose: Not Given Trimethoprim/Sulfamethoxazole (Bactrim Ds Tab) 1 tab PO MOWEFR [facility] Last Admin: 03/13/17 16:16 Dose: 1 tab - Labs Labs: 03/15/17 05:15 03/14/17 05:00 PT 12.5 Seconds (9.8-13.1) 03/10/17 13:10 INR 1.2 (0.9-1.2) 03/10/17 13:10 APTT 28.4 Seconds (25.6-37.1) 03/10/17 13:10 - Skin Additional comments: ADDENDUM ATTENDING NOTE PATIENT SEEN BY ME AND EXAMINED. CONSULTS - GI AND HEME/ONC READ AND APPRECIATED. CASE DISCUSSED WITH RESIDENT. AGREE WITH FINDINGS AND PLAN. RESIDENT DISCUSSED WITH GENERAL SURGERY TEAM WHO AGREED WITH IR EVALUATION.
--- NOTE | 2017-03-14 08:31 | CON ---
DATE: 03/12/2017 REFERRING PHYSICIAN: Bisi Lala MD REASON FOR CONSULTATION: Abdominal pain and diarrhea. HISTORY OF PRESENT ILLNESS: This is a very cam 61-year-old female who appears older than stated age who had a renal transplant 10 years ago, diabetes, with diverticulitis, now basically has some diarrhea and vomiting yesterday, some profuse liquid stool and some abdominal pain and discomfort in the left lower quadrant she is better, she tolerating liquid diet, otherwise lying in bed, comfortable, in no apparent distress. PAST MEDICAL HISTORY: As above. PAST SURGICAL HISTORY: As above. MEDICATIONS: Reviewed. REVIEW OF SYSTEMS: All other systems have been reviewed and negative apart from the HPI. PHYSICAL EXAMINATION: VITAL SIGNS: In the hospital grossly remarkable. GENERAL: Pleasant elderly-appearing female, lying in bed comfortable, in no apparent distress. HEENT: Head is normocephalic and atraumatic. Eyes, pupils are equal, round, and reactive to light bilaterally. No conjunctival pallor or icterus. NECK: Supple. Normal range of motion. No lymphadenopathy appreciated. LUNGS: Coarse breath sounds bilaterally. HEART: S1 and S2. Regular rate and rhythm. ABDOMEN: Soft and nontender. Some discomfort in the lower quadrant. No rebound. No guarding. RECTAL: Deferred. EXTREMITIES: Pulses felt bilaterally. SKIN: Warm, dry and intact. NEUROLOGIC: A and O x3. LABORATORY DATA: Labs reviewed. WBC 7.3, hemoglobin 10.6, hematocrit 32.8. Calcium 12.0. C. diff antigen is positive, toxins not listed. CAT scan shows a diverticulitis and abscess as well in the left side. ASSESSMENT AND PLAN: This is a 61-year-old female with what appears to be diverticulitis and diarrhea. They laboratory about the Clostridium difficile toxin itself. From gastrointestinal standpoint, the abscess needs to be resolved with surgery, possible intervention and no IR. Obviously, no colonoscopic intervention at this point, given this perforation, we will follow up the patient with you. Can advance diet as tolerated. Thank you for the consult. Raghu Medina MD/ PhD cc: Bisi Lala MD [facility] # [id number]
[2017-03-14] MEDS: PROGRAF 5 MG PO SCH ×2 (09:43→18:00)
[2017-03-14] MEDS: Saccharomyces Boulardi 250 mg Cap PO SCH ×2 (09:44→18:00)
[2017-03-14] MEDS: Pantoprazole 40 mg EC Tab PO SCH (09:45)
[2017-03-14] MEDS: Lidocaine 5% Patch TD SCH (09:46)
[2017-03-14] MEDS: Meropenem 1 GM in Sodium Chloride 0.9% 100 ML IVPB SCH ×2 (09:49→21:35)
--- NOTE | 2017-03-14 11:35 | CP.PCM.PN ---
<JaironCece - Last Filed: 03/14/17 11:33> Subjective - Date & Time of Evaluation Date of Evaluation: 03/14/17 Time of Evaluation: 11:33 - Subjective Subjective: General Surgery - Dr. Knowles Pt S&EHeladio GONZALEZ. Pt doing well this morning, oob in the chair. She states her pain is much improved. She had another large and more formed BM this AM. She is tolerating soft diet with no N/V. No F/C, SOB/Cp. Objective - Vital Signs/Intake and Output Vital Signs (last 24 hours): Temp Pulse Resp BP Pulse Ox 98.0 F 104 H 18 126/75 100 03/14/17 08:00 03/14/17 09:45 03/14/17 08:00 03/14/17 09:45 03/14/17 08:00 - Medications Medications: Current Medications Acetaminophen (Tylenol 325mg Tab) 650 mg PO Q4H PRN PRN Reason: Temp >100 Amlodipine Besylate (Norvasc) 5 mg PO DAILY [facility] Last Admin: 03/14/17 09:45 Dose: 5 mg Cinacalcet (Sensipar) 30 mg PO DAILY [facility] Last Admin: 03/14/17 09:44 Dose: 30 mg Docusate Sodium (Colace) 100 mg PO BID [facility] Last Admin: 03/14/17 09:45 Dose: 100 mg Home Med (Tacrolimus [Prograf]) 5 mg PO BID [facility] Last Admin: 03/14/17 09:43 Dose: 5 mg Meropenem 1 gm/ Sodium (Chloride) 100 mls @ 100 mls/hr IVPB Q12 [facility] Last Admin: 03/14/17 09:49 Dose: 100 mls/hr Iron Sucrose 100 mg/ Sodium (Chloride) 105 mls @ 105 mls/hr IVPB DAILY [facility] Stop: 03/18/17 09:01 Last Admin: 03/14/17 09:48 Dose: 105 mls/hr Lidocaine (Lidoderm) 1 ea TD DAILY [facility] Last Admin: 03/14/17 09:46 Dose: 1 ea Metoclopramide HCl (Reglan) 10 mg IVP Q6 PRN PRN Reason: Nausea/Vomiting Metronidazole (Flagyl) 500 mg PO Q8 [facility] Last Admin: 03/14/17 09:45 Dose: 500 mg Morphine Sulfate (Morphine) 2 mg IVP Q6 PRN PRN Reason: Pain, moderate (4-7) Morphine Sulfate (Morphine) 1 mg IVP Q6 PRN PRN Reason: Pain, Mild (1-3) Mycophenolate Mofetil (Cellcept Cap) 250 mg PO BID [facility] Last Admin: 03/14/17 09:44 Dose: 250 mg Pantoprazole Sodium (Protonix Ec Tab) 40 mg PO DAILY [facility] Last Admin: 03/14/17 09:45 Dose: 40 mg Prednisone (Prednisone Tab) 5 mg PO DAILY [facility] Last Admin: 03/14/17 09:47 Dose: 5 mg Saccharomyces Boulardii (Florastor) 250 mg PO BID [facility] Last Admin: 03/14/17 09:44 Dose: 250 mg Trimethoprim/Sulfamethoxazole (Bactrim Ds Tab) 1 tab PO MOWEFR [facility] Last Admin: 03/13/17 16:16 Dose: 1 tab - Labs Labs: 03/14/17 05:00 03/14/17 05:00 PT 12.5 Seconds (9.8-13.1) 03/10/17 13:10 INR 1.2 (0.9-1.2) 03/10/17 13:10 APTT 28.4 Seconds (25.6-37.1) 03/10/17 13:10 - Constitutional Appears: No Acute Distress - Head Exam Head Exam: ATRAUMATIC, NORMAL INSPECTION, NORMOCEPHALIC - Eye Exam Eye Exam: Normal appearance - Respiratory Exam Respiratory Exam: NORMAL BREATHING PATTERN. absent: Respiratory Distress - GI/Abdominal Exam GI & Abdominal Exam: Soft. absent: Distended, Guarding, Rigid, Tenderness, Rebound - Neurological Exam Neurological Exam: Alert, Oriented x3 - Psychiatric Exam Psychiatric exam: Normal Affect, Normal Mood - Skin Skin Exam: Dry, Intact Assessment and Plan - Assessment and Plan (Free Text) Assessment: 61F w/ diverticulitis and c diff colitis, improving Plan: -Continue soft diet -Continue IV Abx as per ID -OOB/PT DW Dr Eleni De La O PGy3 <Jean Claude Knowles - Last Filed: 03/17/17 18:28> Objective - Vital Signs/Intake and Output Vital Signs (last 24 hours): Temp Pulse Resp BP Pulse Ox 98.3 F 94 H 18 131/75 99 03/17/17 16:11 03/17/17 16:11 03/17/17 16:11 03/17/17 16:11 03/17/17 16:11 Intake and Output: 03/17/17 03/17/17 06:59 18:59 Intake Total 960 Balance 960 - Medications Medications: Current Medications Acetaminophen (Tylenol 325mg Tab) 650 mg PO Q4H PRN PRN Reason: Temp >100 Amlodipine Besylate (Norvasc) 5 mg PO DAILY [facility] Last Admin: 03/17/17 09:08 Dose: 5 mg Bisacodyl (Dulcolax) 5 mg PO DAILY PRN PRN Reason: Constipation Cinacalcet (Sensipar) 30 mg PO DAILY [facility] Last Admin: 03/17/17 09:08 Dose: 30 mg Diphenhydramine HCl (Benadryl) 25 mg IVP Q6 PRN PRN Reason: Allergy symptoms Docusate Sodium (Colace) 100 mg PO BID [facility] Last Admin: 03/17/17 16:01 Dose: Not Given Home Med (Tacrolimus [Prograf]) 5 mg PO BID [facility] Last Admin: 03/17/17 16:00 Dose: 5 mg Meropenem 1 gm/ Sodium (Chloride) 100 mls @ 100 mls/hr IVPB Q12 [facility] Last Admin: 03/17/17 09:05 Dose: 100 mls/hr Iron Sucrose 100 mg/ Sodium (Chloride) 105 mls @ 105 mls/hr IVPB DAILY [facility] Stop: 03/18/17 09:01 Last Admin: 03/17/17 11:34 Dose: 105 mls/hr Lidocaine (Lidoderm) 1 ea TD DAILY [facility] Last Admin: 03/17/17 09:05 Dose: 1 ea Metoclopramide HCl (Reglan) 10 mg IVP Q6 PRN PRN Reason: Nausea/Vomiting Metronidazole (Flagyl) 500 mg PO Q8 [facility] Last Admin: 03/17/17 16:00 Dose: 500 mg Mycophenolate Mofetil (Cellcept Cap) 250 mg PO BID [facility] Last Admin: 03/17/17 16:01 Dose: 250 mg Ondansetron HCl (Zofran Inj) 4 mg IVP Q4 PRN PRN Reason: Nausea/Vomiting Last Admin: 03/15/17 15:46 Dose: 4 mg Pantoprazole Sodium (Protonix Ec Tab) 40 mg PO DAILY [facility] Last Admin: 03/17/17 09:14 Dose: 40 mg Prednisone (Prednisone Tab) 5 mg PO DAILY [facility] Last Admin: 03/17/17 09:14 Dose: 5 mg Saccharomyces Boulardii (Florastor) 250 mg PO BID [facility] Last Admin: 03/17/17 16:00 Dose: 250 mg Sennosides (Senokot Tab) 17.2 mg PO HS [facility] Last Admin: 03/16/17 22:26 Dose: 17.2 mg Tramadol HCl (Ultram) 50 mg PO Q6 PRN PRN Reason: Pain, severe (8-10) Last Admin: 03/17/17 15:58 Dose: 50 mg - Labs Labs: 03/17/17 05:30 03/17/17 05:30 PT 12.5 Seconds (9.8-13.1) 03/10/17 13:10 INR 1.2 (0.9-1.2) 03/10/17 13:10 APTT 28.4 Seconds (25.6-37.1) 03/10/17 13:10 Attending/Attestation - Attestation I have personally seen and examined this patient.: Yes I have fully participated in the care of the patient.: Yes I have reviewed all pertinent clinical information, including history, physical exam and plan: Yes Notes (Text): 03/17/17 18:28 Pt was seen and examined at bedside Agree with above note and assessment
--- NOTE | 2017-03-14 13:50 | CP.PCM.PN ---
Subjective - Date & Time of Evaluation Date of Evaluation: 03/14/17 Time of Evaluation: 11:15 - Subjective Subjective: less pain Objective - Vital Signs/Intake and Output Vital Signs (last 24 hours): Temp Pulse Resp BP Pulse Ox 97.5 F L 98 H 18 143/84 100 03/14/17 12:00 03/14/17 12:00 03/14/17 12:00 03/14/17 12:00 03/14/17 12:00 - Medications Medications: Current Medications Acetaminophen (Tylenol 325mg Tab) 650 mg PO Q4H PRN PRN Reason: Temp >100 Amlodipine Besylate (Norvasc) 5 mg PO DAILY [facility] Last Admin: 03/14/17 09:45 Dose: 5 mg Cinacalcet (Sensipar) 30 mg PO DAILY [facility] Last Admin: 03/14/17 09:44 Dose: 30 mg Docusate Sodium (Colace) 100 mg PO BID [facility] Last Admin: 03/14/17 09:45 Dose: 100 mg Home Med (Tacrolimus [Prograf]) 5 mg PO BID [facility] Last Admin: 03/14/17 09:43 Dose: 5 mg Meropenem 1 gm/ Sodium (Chloride) 100 mls @ 100 mls/hr IVPB Q12 [facility] Last Admin: 03/14/17 09:49 Dose: 100 mls/hr Iron Sucrose 100 mg/ Sodium (Chloride) 105 mls @ 105 mls/hr IVPB DAILY [facility] Stop: 03/18/17 09:01 Last Admin: 03/14/17 09:48 Dose: 105 mls/hr Lidocaine (Lidoderm) 1 ea TD DAILY [facility] Last Admin: 03/14/17 09:46 Dose: 1 ea Metoclopramide HCl (Reglan) 10 mg IVP Q6 PRN PRN Reason: Nausea/Vomiting Metronidazole (Flagyl) 500 mg PO Q8 [facility] Last Admin: 03/14/17 09:45 Dose: 500 mg Mycophenolate Mofetil (Cellcept Cap) 250 mg PO BID [facility] Last Admin: 03/14/17 09:44 Dose: 250 mg Pantoprazole Sodium (Protonix Ec Tab) 40 mg PO DAILY [facility] Last Admin: 03/14/17 09:45 Dose: 40 mg Prednisone (Prednisone Tab) 5 mg PO DAILY [facility] Last Admin: 03/14/17 09:47 Dose: 5 mg Saccharomyces Boulardii (Florastor) 250 mg PO BID [facility] Last Admin: 03/14/17 09:44 Dose: 250 mg Trimethoprim/Sulfamethoxazole (Bactrim Ds Tab) 1 tab PO MOWEFR [facility] Last Admin: 03/13/17 16:16 Dose: 1 tab - Labs Labs: 03/14/17 05:00 03/14/17 05:00 PT 12.5 Seconds (9.8-13.1) 03/10/17 13:10 INR 1.2 (0.9-1.2) 03/10/17 13:10 APTT 28.4 Seconds (25.6-37.1) 03/10/17 13:10 - Respiratory Exam Respiratory Exam: NORMAL BREATHING PATTERN - Cardiovascular Exam Cardiovascular Exam: REGULAR RHYTHM - GI/Abdominal Exam GI & Abdominal Exam: Soft, Normal Bowel Sounds Assessment and Plan - Assessment and Plan (Free Text) Assessment: 61 yo female with diverticulitis IR abx surgical input
[2017-03-14] MEDS ORDERED: Bisacodyl 5mg EC Tab PO PRN (15:40)
--- NOTE | 2017-03-14 15:46 | RAD ---
HISTORY: constipation COMPARISON: CT abdomen and pelvis from 03/10/2017 FINDINGS: BOWEL: There are normal caliber gas filled bowel loops in the abdomen. There is moderate amount of stool in the rectum. BONES: Normal. OTHER FINDINGS: Atherosclerotic vascular calcifications are present. IMPRESSION: Nonobstructive bowel-gas pattern.
--- NOTE | 2017-03-14 15:46 | RAD ---
PROCEDURE: CHEST RADIOGRAPH, 1 VIEW HISTORY: assess for free air COMPARISON: 01/18/2017 FINDINGS: There is a right axillary endovascular stent graft. LUNGS: The lungs are well inflated and clear. PLEURA: No pneumothorax or pleural fluid seen. CARDIOVASCULAR: Normal. OSSEOUS STRUCTURES: No significant abnormalities. VISUALIZED UPPER ABDOMEN: Normal. OTHER FINDINGS: There is no free air under the diaphragms. IMPRESSION: No acute findings. No free air under the hemidiaphragms.
--- NOTE | 2017-03-14 18:57 | CP.PCM.PN ---
Subjective - Date & Time of Evaluation Date of Evaluation: 03/14/17 Time of Evaluation: 15:00 - Subjective Subjective: SEEN ON RENAL F/U FEELS IMPROVED ALL PREVIOUS EMR REVIEWED RENAL FUNCTION STABLE Objective - Vital Signs/Intake and Output Vital Signs (last 24 hours): Temp Pulse Resp BP Pulse Ox 97.7 F 82 20 122/66 100 03/14/17 16:39 03/14/17 16:39 03/14/17 16:39 03/14/17 16:39 03/14/17 16:39 - Medications Medications: Current Medications Acetaminophen (Tylenol 325mg Tab) 650 mg PO Q4H PRN PRN Reason: Temp >100 Amlodipine Besylate (Norvasc) 5 mg PO DAILY [facility] Last Admin: 03/14/17 09:45 Dose: 5 mg Bisacodyl (Dulcolax) 5 mg PO DAILY PRN PRN Reason: Constipation Cinacalcet (Sensipar) 30 mg PO DAILY [facility] Last Admin: 03/14/17 09:44 Dose: 30 mg Docusate Sodium (Colace) 100 mg PO BID [facility] Last Admin: 03/14/17 18:00 Dose: 100 mg Home Med (Tacrolimus [Prograf]) 5 mg PO BID [facility] Last Admin: 03/14/17 18:00 Dose: 5 mg Meropenem 1 gm/ Sodium (Chloride) 100 mls @ 100 mls/hr IVPB Q12 [facility] Last Admin: 03/14/17 09:49 Dose: 100 mls/hr Iron Sucrose 100 mg/ Sodium (Chloride) 105 mls @ 105 mls/hr IVPB DAILY [facility] Stop: 03/18/17 09:01 Last Admin: 03/14/17 09:48 Dose: 105 mls/hr Lidocaine (Lidoderm) 1 ea TD DAILY [facility] Last Admin: 03/14/17 09:46 Dose: 1 ea Metoclopramide HCl (Reglan) 10 mg IVP Q6 PRN PRN Reason: Nausea/Vomiting Metronidazole (Flagyl) 500 mg PO Q8 [facility] Last Admin: 03/14/17 17:59 Dose: 500 mg Mycophenolate Mofetil (Cellcept Cap) 250 mg PO BID [facility] Last Admin: 03/14/17 17:59 Dose: 250 mg Pantoprazole Sodium (Protonix Ec Tab) 40 mg PO DAILY [facility] Last Admin: 03/14/17 09:45 Dose: 40 mg Prednisone (Prednisone Tab) 5 mg PO DAILY [facility] Last Admin: 03/14/17 09:47 Dose: 5 mg Saccharomyces Boulardii (Florastor) 250 mg PO BID [facility] Last Admin: 03/14/17 18:00 Dose: 250 mg Sennosides (Senokot Tab) 17.2 mg PO HS [facility] Trimethoprim/Sulfamethoxazole (Bactrim Ds Tab) 1 tab PO MOWEFR [facility] Last Admin: 03/13/17 16:16 Dose: 1 tab - Labs Labs: 03/14/17 05:00 03/14/17 05:00 PT 12.5 Seconds (9.8-13.1) 03/10/17 13:10 INR 1.2 (0.9-1.2) 03/10/17 13:10 APTT 28.4 Seconds (25.6-37.1) 03/10/17 13:10 Assessment and Plan - Assessment and Plan (Free Text) Assessment: RENAL TRX .. RENAL FUNCTION STABLE RECURRENT DIVERTICULITIS ..ON IVAB MULTIPLE CO MORBIDITIES P : C/O CURRENT CARE
[2017-03-15 07:07] LABS: HEMATOCRIT 34.4 % (34.0-47.0); MEAN CELL VOLUME 90.4 fl (81.0-99.0); MEAN CORPUSCULAR HGB CONC 32.1 g/dL (33.0-37.0); RED CELL DISTRIBUTION WIDTH 15.3 % (11.5-14.5); WHITE BLOOD COUNT 6.3 K/uL (4.8-10.8)
--- NOTE | 2017-03-15 07:14 | CP.PCM.PN ---
<De La OCece lundy - Last Filed: 03/15/17 07:24> Subjective - Date & Time of Evaluation Date of Evaluation: 03/15/17 Time of Evaluation: 07:12 - Subjective Subjective: General Surgery - Dr. Knowles Pt S&EHeladio GONZALEZ. Pt tolerating soft diet with no issues. She denies any abdominal pain but complains of some low back pain. She is having soft formed BMs. No N/V, F/C, SOB/Cp Objective - Vital Signs/Intake and Output Vital Signs (last 24 hours): Temp Pulse Resp BP Pulse Ox 97.6 F 93 H 20 136/80 97 03/15/17 04:54 03/15/17 04:54 03/15/17 04:54 03/15/17 04:54 03/15/17 04:54 - Medications Medications: Current Medications Acetaminophen (Tylenol 325mg Tab) 650 mg PO Q4H PRN PRN Reason: Temp >100 Amlodipine Besylate (Norvasc) 5 mg PO DAILY [facility] Last Admin: 03/14/17 09:45 Dose: 5 mg Bisacodyl (Dulcolax) 5 mg PO DAILY PRN PRN Reason: Constipation Cinacalcet (Sensipar) 30 mg PO DAILY [facility] Last Admin: 03/14/17 09:44 Dose: 30 mg Docusate Sodium (Colace) 100 mg PO BID [facility] Last Admin: 03/14/17 18:00 Dose: 100 mg Home Med (Tacrolimus [Prograf]) 5 mg PO BID [facility] Last Admin: 03/14/17 18:00 Dose: 5 mg Meropenem 1 gm/ Sodium (Chloride) 100 mls @ 100 mls/hr IVPB Q12 [facility] Last Admin: 03/14/17 21:35 Dose: 100 mls/hr Iron Sucrose 100 mg/ Sodium (Chloride) 105 mls @ 105 mls/hr IVPB DAILY [facility] Stop: 03/18/17 09:01 Last Admin: 03/14/17 09:48 Dose: 105 mls/hr Lidocaine (Lidoderm) 1 ea TD DAILY [facility] Last Admin: 03/14/17 09:46 Dose: 1 ea Metoclopramide HCl (Reglan) 10 mg IVP Q6 PRN PRN Reason: Nausea/Vomiting Metronidazole (Flagyl) 500 mg PO Q8 [facility] Last Admin: 03/15/17 01:21 Dose: 500 mg Mycophenolate Mofetil (Cellcept Cap) 250 mg PO BID [facility] Last Admin: 03/14/17 17:59 Dose: 250 mg Pantoprazole Sodium (Protonix Ec Tab) 40 mg PO DAILY [facility] Last Admin: 03/14/17 09:45 Dose: 40 mg Prednisone (Prednisone Tab) 5 mg PO DAILY [facility] Last Admin: 03/14/17 09:47 Dose: 5 mg Saccharomyces Boulardii (Florastor) 250 mg PO BID [facility] Last Admin: 03/14/17 18:00 Dose: 250 mg Sennosides (Senokot Tab) 17.2 mg PO HS [facility] Last Admin: 03/14/17 21:36 Dose: Not Given Trimethoprim/Sulfamethoxazole (Bactrim Ds Tab) 1 tab PO MOWEFR [facility] Last Admin: 03/13/17 16:16 Dose: 1 tab - Labs Labs: 03/14/17 05:00 03/14/17 05:00 PT 12.5 Seconds (9.8-13.1) 03/10/17 13:10 INR 1.2 (0.9-1.2) 03/10/17 13:10 APTT 28.4 Seconds (25.6-37.1) 03/10/17 13:10 - Constitutional Appears: No Acute Distress - Head Exam Head Exam: ATRAUMATIC, NORMAL INSPECTION, NORMOCEPHALIC - Eye Exam Eye Exam: Normal appearance - Respiratory Exam Respiratory Exam: NORMAL BREATHING PATTERN. absent: Respiratory Distress - GI/Abdominal Exam GI & Abdominal Exam: Soft. absent: Distended, Firm, Guarding, Rigid, Tenderness , Rebound - Neurological Exam Neurological Exam: Alert, Oriented x3 - Psychiatric Exam Psychiatric exam: Normal Affect, Normal Mood - Skin Skin Exam: Dry, Intact Assessment and Plan - Assessment and Plan (Free Text) Assessment: 61F w/ diverticulitis and c diff colitis, improving Plan: -Continue soft diet -Continue IV Abx as per ID -OOB/PT -No plans for surgical intervention at this time -Surgery will sign off Thank you for allowing us to participate in the care of this patient DW Dr Eleni De La O PGy3 <Jean Claude Knowles B - Last Filed: 03/17/17 18:30> Objective - Vital Signs/Intake and Output Vital Signs (last 24 hours): Temp Pulse Resp BP Pulse Ox 98.3 F 94 H 18 131/75 99 03/17/17 16:11 03/17/17 16:11 03/17/17 16:11 03/17/17 16:11 03/17/17 16:11 Intake and Output: 03/17/17 03/17/17 06:59 18:59 Intake Total 960 Balance 960 - Medications Medications: Current Medications Acetaminophen (Tylenol 325mg Tab) 650 mg PO Q4H PRN PRN Reason: Temp >100 Amlodipine Besylate (Norvasc) 5 mg PO DAILY [facility] Last Admin: 03/17/17 09:08 Dose: 5 mg Bisacodyl (Dulcolax) 5 mg PO DAILY PRN PRN Reason: Constipation Cinacalcet (Sensipar) 30 mg PO DAILY [facility] Last Admin: 03/17/17 09:08 Dose: 30 mg Diphenhydramine HCl (Benadryl) 25 mg IVP Q6 PRN PRN Reason: Allergy symptoms Docusate Sodium (Colace) 100 mg PO BID [facility] Last Admin: 03/17/17 16:01 Dose: Not Given Home Med (Tacrolimus [Prograf]) 5 mg PO BID [facility] Last Admin: 03/17/17 16:00 Dose: 5 mg Meropenem 1 gm/ Sodium (Chloride) 100 mls @ 100 mls/hr IVPB Q12 [facility] Last Admin: 03/17/17 09:05 Dose: 100 mls/hr Iron Sucrose 100 mg/ Sodium (Chloride) 105 mls @ 105 mls/hr IVPB DAILY [facility] Stop: 03/18/17 09:01 Last Admin: 03/17/17 11:34 Dose: 105 mls/hr Lidocaine (Lidoderm) 1 ea TD DAILY [facility] Last Admin: 03/17/17 09:05 Dose: 1 ea Metoclopramide HCl (Reglan) 10 mg IVP Q6 PRN PRN Reason: Nausea/Vomiting Metronidazole (Flagyl) 500 mg PO Q8 [facility] Last Admin: 03/17/17 16:00 Dose: 500 mg Mycophenolate Mofetil (Cellcept Cap) 250 mg PO BID [facility] Last Admin: 03/17/17 16:01 Dose: 250 mg Ondansetron HCl (Zofran Inj) 4 mg IVP Q4 PRN PRN Reason: Nausea/Vomiting Last Admin: 03/15/17 15:46 Dose: 4 mg Pantoprazole Sodium (Protonix Ec Tab) 40 mg PO DAILY [facility] Last Admin: 03/17/17 09:14 Dose: 40 mg Prednisone (Prednisone Tab) 5 mg PO DAILY [facility] Last Admin: 03/17/17 09:14 Dose: 5 mg Saccharomyces Boulardii (Florastor) 250 mg PO BID [facility] Last Admin: 03/17/17 16:00 Dose: 250 mg Sennosides (Senokot Tab) 17.2 mg PO HS [facility] Last Admin: 03/16/17 22:26 Dose: 17.2 mg Tramadol HCl (Ultram) 50 mg PO Q6 PRN PRN Reason: Pain, severe (8-10) Last Admin: 03/17/17 15:58 Dose: 50 mg - Labs Labs: 03/17/17 05:30 03/17/17 05:30 PT 12.5 Seconds (9.8-13.1) 03/10/17 13:10 INR 1.2 (0.9-1.2) 03/10/17 13:10 APTT 28.4 Seconds (25.6-37.1) 03/10/17 13:10 Attending/Attestation - Attestation I have personally seen and examined this patient.: Yes I have fully participated in the care of the patient.: Yes I have reviewed all pertinent clinical information, including history, physical exam and plan: Yes Notes (Text): 03/17/17 18:30 Pt was seen and examined at bedside Agree with above note and assessment
[2017-03-15] MEDS: Saccharomyces Boulardi 250 mg Cap PO SCH ×2 (09:51→17:01)
[2017-03-15] MEDS: Lidocaine 5% Patch TD SCH (09:51)
[2017-03-15] MEDS: Meropenem 1 GM in Sodium Chloride 0.9% 100 ML IVPB SCH ×2 (09:52→21:26)
[2017-03-15] MEDS: Pantoprazole 40 mg EC Tab PO SCH (09:53)
[2017-03-15] MEDS: PROGRAF 5 MG PO SCH ×2 (09:53→17:03)
[2017-03-15] MEDS ORDERED: Iohexol 240 (50 ml) PO ONE ×4 (10:30→14:40)
--- NOTE | 2017-03-15 12:44 | CP.PCM.PN ---
Subjective - Date & Time of Evaluation Date of Evaluation: 03/15/17 Time of Evaluation: 12:30 - Subjective Subjective: doing well Objective - Vital Signs/Intake and Output Vital Signs (last 24 hours): Temp Pulse Resp BP Pulse Ox 97.3 F L 97 H 18 115/71 100 03/15/17 11:56 03/15/17 11:56 03/15/17 11:56 03/15/17 11:56 03/15/17 11:56 - Medications Medications: Current Medications Acetaminophen (Tylenol 325mg Tab) 650 mg PO Q4H PRN PRN Reason: Temp >100 Amlodipine Besylate (Norvasc) 5 mg PO DAILY [facility] Last Admin: 03/15/17 09:52 Dose: 5 mg Bisacodyl (Dulcolax) 5 mg PO DAILY PRN PRN Reason: Constipation Cinacalcet (Sensipar) 30 mg PO DAILY [facility] Last Admin: 03/15/17 09:54 Dose: 30 mg Docusate Sodium (Colace) 100 mg PO BID [facility] Last Admin: 03/15/17 09:49 Dose: 100 mg Home Med (Tacrolimus [Prograf]) 5 mg PO BID [facility] Last Admin: 03/15/17 09:53 Dose: 5 mg Meropenem 1 gm/ Sodium (Chloride) 100 mls @ 100 mls/hr IVPB Q12 [facility] Last Admin: 03/15/17 09:52 Dose: 100 mls/hr Iron Sucrose 100 mg/ Sodium (Chloride) 105 mls @ 105 mls/hr IVPB DAILY [facility] Stop: 03/18/17 09:01 Last Admin: 03/15/17 09:54 Dose: 105 mls/hr Iohexol (Omnipaque 240 (50 Ml)) 50 ml PO ONCE ONE Stop: 03/15/17 13:01 Lidocaine (Lidoderm) 1 ea TD DAILY [facility] Last Admin: 03/15/17 09:51 Dose: 1 ea Metoclopramide HCl (Reglan) 10 mg IVP Q6 PRN PRN Reason: Nausea/Vomiting Metronidazole (Flagyl) 500 mg PO Q8 [facility] Last Admin: 03/15/17 09:50 Dose: 500 mg Mycophenolate Mofetil (Cellcept Cap) 250 mg PO BID [facility] Last Admin: 03/15/17 09:49 Dose: 250 mg Pantoprazole Sodium (Protonix Ec Tab) 40 mg PO DAILY [facility] Last Admin: 03/15/17 09:53 Dose: 40 mg Prednisone (Prednisone Tab) 5 mg PO DAILY [facility] Last Admin: 03/15/17 09:53 Dose: 5 mg Saccharomyces Boulardii (Florastor) 250 mg PO BID [facility] Last Admin: 03/15/17 09:51 Dose: 250 mg Sennosides (Senokot Tab) 17.2 mg PO HS [facility] Last Admin: 03/14/17 21:36 Dose: Not Given Tramadol HCl (Ultram) 50 mg PO Q6 [facility] Trimethoprim/Sulfamethoxazole (Bactrim Ds Tab) 1 tab PO MOWEFR [facility] Last Admin: 03/13/17 16:16 Dose: 1 tab - Labs Labs: 03/15/17 05:15 03/14/17 05:00 PT 12.5 Seconds (9.8-13.1) 03/10/17 13:10 INR 1.2 (0.9-1.2) 03/10/17 13:10 APTT 28.4 Seconds (25.6-37.1) 03/10/17 13:10 - Head Exam Head Exam: NORMAL INSPECTION - Eye Exam Eye Exam: Normal appearance - Neck Exam Neck Exam: Normal Inspection - Cardiovascular Exam Cardiovascular Exam: REGULAR RHYTHM - GI/Abdominal Exam GI & Abdominal Exam: Soft, Tenderness, Normal Bowel Sounds Assessment and Plan - Assessment and Plan (Free Text) Assessment: 61 yo female with diverticulitis abx per ID surgical input appreciated
[2017-03-15] MEDS ORDERED: DiphenhydrAMINE 50 mg/ml Inj IVP STA ×2 (13:20)
[2017-03-15] MEDS ORDERED: DiphenhydrAMINE 50 mg/ml Inj ONE (13:27)
--- NOTE | 2017-03-15 13:58 | CP.PCM.PN ---
<Malinda Castillo - Last Filed: 03/15/17 16:50> Subjective - Date & Time of Evaluation Date of Evaluation: 03/15/17 Time of Evaluation: 07:00 - Subjective Subjective: Patient seen and examined today at bedside, no acute overnight events, reports feel better from her abdominal pain but has increased back pain since yesterday. States good appetite, normal BM yesterday and this morning. Denies fever, nausea, vomiting, no diarrhea, no headache. No urinary symptoms. Objective - Vital Signs/Intake and Output Vital Signs (last 24 hours): Temp Pulse Resp BP Pulse Ox 97.3 F L 97 H 18 115/71 100 03/15/17 11:56 03/15/17 11:56 03/15/17 11:56 03/15/17 11:56 03/15/17 11:56 - Medications Medications: Current Medications Acetaminophen (Tylenol 325mg Tab) 650 mg PO Q4H PRN PRN Reason: Temp >100 Amlodipine Besylate (Norvasc) 5 mg PO DAILY [facility] Last Admin: 03/15/17 09:52 Dose: 5 mg Bisacodyl (Dulcolax) 5 mg PO DAILY PRN PRN Reason: Constipation Cinacalcet (Sensipar) 30 mg PO DAILY [facility] Last Admin: 03/15/17 09:54 Dose: 30 mg Docusate Sodium (Colace) 100 mg PO BID [facility] Last Admin: 03/15/17 09:49 Dose: 100 mg Home Med (Tacrolimus [Prograf]) 5 mg PO BID [facility] Last Admin: 03/15/17 09:53 Dose: 5 mg Meropenem 1 gm/ Sodium (Chloride) 100 mls @ 100 mls/hr IVPB Q12 [facility] Last Admin: 03/15/17 09:52 Dose: 100 mls/hr Iron Sucrose 100 mg/ Sodium (Chloride) 105 mls @ 105 mls/hr IVPB DAILY [facility] Stop: 03/18/17 09:01 Last Admin: 03/15/17 09:54 Dose: 105 mls/hr Lidocaine (Lidoderm) 1 ea TD DAILY [facility] Last Admin: 03/15/17 09:51 Dose: 1 ea Metoclopramide HCl (Reglan) 10 mg IVP Q6 PRN PRN Reason: Nausea/Vomiting Metronidazole (Flagyl) 500 mg PO Q8 [facility] Last Admin: 03/15/17 09:50 Dose: 500 mg Mycophenolate Mofetil (Cellcept Cap) 250 mg PO BID [facility] Last Admin: 03/15/17 09:49 Dose: 250 mg Pantoprazole Sodium (Protonix Ec Tab) 40 mg PO DAILY [facility] Last Admin: 03/15/17 09:53 Dose: 40 mg Prednisone (Prednisone Tab) 5 mg PO DAILY [facility] Last Admin: 03/15/17 09:53 Dose: 5 mg Saccharomyces Boulardii (Florastor) 250 mg PO BID [facility] Last Admin: 03/15/17 09:51 Dose: 250 mg Sennosides (Senokot Tab) 17.2 mg PO HS [facility] Last Admin: 03/14/17 21:36 Dose: Not Given Tramadol HCl (Ultram) 50 mg PO Q6 [facility] Trimethoprim/Sulfamethoxazole (Bactrim Ds Tab) 1 tab PO MOWEFR [facility] Last Admin: 03/13/17 16:16 Dose: 1 tab - Labs Labs: 03/15/17 05:15 03/14/17 05:00 PT 12.5 Seconds (9.8-13.1) 03/10/17 13:10 INR 1.2 (0.9-1.2) 03/10/17 13:10 APTT 28.4 Seconds (25.6-37.1) 03/10/17 13:10 - Constitutional Appears: No Acute Distress, Cachectic - Head Exam Head Exam: ATRAUMATIC, NORMOCEPHALIC - Eye Exam Eye Exam: EOMI, Normal appearance, PERRL - ENT Exam ENT Exam: Mucous Membranes Moist - Neck Exam Neck Exam: Full ROM. absent: Lymphadenopathy - Respiratory Exam Respiratory Exam: Clear to Ausculation Bilateral, NORMAL BREATHING PATTERN - Cardiovascular Exam Cardiovascular Exam: REGULAR RHYTHM, +S1, +S2 - GI/Abdominal Exam GI & Abdominal Exam: Soft, Tenderness (Mild tenderness in LLQ on deep palpation. ), Normal Bowel Sounds - Extremities Exam Extremities Exam: Full ROM. absent: Calf Tenderness, Joint Swelling, Pedal Edema - Back Exam Additional comments: Localized pain on L sacroiliac area, tender to palpation, no swelling or redness observed. - Neurological Exam Neurological Exam: Alert, Awake, CN II-XII Intact, Oriented x3 - Psychiatric Exam Psychiatric exam: Normal Mood - Skin Skin Exam: Dry, Pallor, Warm Assessment and Plan - Assessment and Plan (Free Text) Assessment: 61 YO F w/ PMH of renal transplant 11 years ago, DM, multiple admissions for diverticulitis presents w/ left lower back pain radiating to left lower quadrant of the abdomen. 1) Diverticulitis - Soft diet - WBC: 6.3 today - c/w Meropenem 1gm Q12 - Pain controlled with tramadol PRN for severe pain and lidocaine patch. - IV fluids - stool C. Diff antigen + - c/w Flagyl 500mg PO q8 - Probiotics - GI on board -Ordered CT abdomen w/ PO contrast. 2) Compression fracture L3 level. -h/o fall 3 months ago -Neurosurgery consulted, spoke w/ Dr Rueda and said that further evaluation with MRI is needed. 3) Hypercalcemia. - Likely secondary to CKD - Continue w/ Cinacalet 30 mg PO daily - IV hydration 4) CKD - Nephro consult appreciated, Dr Glez recommends c/w current treatment. - Continue IV hydration 5) DM2 - Currently patient not on treatment - Last HBA1C on 12/18/16 was: 7.3 6) Chronic UTI - H/O ESBL - PT takes Bactrim DS M- W- F for prophylaxis - c/w meropenem 1gm q12 as per ID 7) Constipation -Docusate sodium 100 mg PO BID -Ducolax 5mg PO daily PRN -Senakot 17.2 PO HS 8) Prophylaxis GI: PPI and probiotics on board DVT Prophylaxis: SCD <Virginia Boyer - Last Filed: 03/16/17 08:31> Objective - Vital Signs/Intake and Output Vital Signs (last 24 hours): Temp Pulse Resp BP Pulse Ox 97.8 F 90 18 133/78 100 03/16/17 08:00 03/16/17 08:00 03/16/17 08:00 03/16/17 08:00 03/16/17 08:00 - Medications Medications: Current Medications Acetaminophen (Tylenol 325mg Tab) 650 mg PO Q4H PRN PRN Reason: Temp >100 Amlodipine Besylate (Norvasc) 5 mg PO DAILY [facility] Last Admin: 03/15/17 09:52 Dose: 5 mg Bisacodyl (Dulcolax) 5 mg PO DAILY PRN PRN Reason: Constipation Cinacalcet (Sensipar) 30 mg PO DAILY [facility] Last Admin: 03/15/17 09:54 Dose: 30 mg Diphenhydramine HCl (Benadryl) 25 mg IVP Q6 PRN PRN Reason: Allergy symptoms Docusate Sodium (Colace) 100 mg PO BID [facility] Last Admin: 03/15/17 17:01 Dose: Not Given Home Med (Tacrolimus [Prograf]) 5 mg PO BID [facility] Last Admin: 03/15/17 17:03 Dose: 5 mg Meropenem 1 gm/ Sodium (Chloride) 100 mls @ 100 mls/hr IVPB Q12 [facility] Last Admin: 03/15/17 21:26 Dose: 100 mls/hr Iron Sucrose 100 mg/ Sodium (Chloride) 105 mls @ 105 mls/hr IVPB DAILY [facility] Stop: 03/18/17 09:01 Last Admin: 03/15/17 09:54 Dose: 105 mls/hr Lidocaine (Lidoderm) 1 ea TD DAILY [facility] Last Admin: 03/15/17 09:51 Dose: 1 ea Metoclopramide HCl (Reglan) 10 mg IVP Q6 PRN PRN Reason: Nausea/Vomiting Metronidazole (Flagyl) 500 mg PO Q8 [facility] Last Admin: 03/16/17 01:23 Dose: 500 mg Mycophenolate Mofetil (Cellcept Cap) 250 mg PO BID [facility] Last Admin: 03/15/17 17:01 Dose: 250 mg Ondansetron HCl (Zofran Inj) 4 mg IVP Q4 PRN PRN Reason: Nausea/Vomiting Last Admin: 03/15/17 15:46 Dose: 4 mg Pantoprazole Sodium (Protonix Ec Tab) 40 mg PO DAILY [facility] Last Admin: 03/15/17 09:53 Dose: 40 mg Prednisone (Prednisone Tab) 5 mg PO DAILY [facility] Last Admin: 03/15/17 09:53 Dose: 5 mg Saccharomyces Boulardii (Florastor) 250 mg PO BID [facility] Last Admin: 03/15/17 17:01 Dose: 250 mg Sennosides (Senokot Tab) 17.2 mg PO HS [facility] Last Admin: 03/15/17 21:27 Dose: 17.2 mg Tramadol HCl (Ultram) 50 mg PO Q6 PRN PRN Reason: Pain, severe (8-10) Trimethoprim/Sulfamethoxazole (Bactrim Ds Tab) 1 tab PO MOWEFR [facility] Last Admin: 03/15/17 17:01 Dose: 1 tab - Labs Labs: 03/15/17 05:15 03/14/17 05:00 PT 12.5 Seconds (9.8-13.1) 03/10/17 13:10 INR 1.2 (0.9-1.2) 03/10/17 13:10 APTT 28.4 Seconds (25.6-37.1) 03/10/17 13:10 - Skin Additional comments: ADDENDUM - ATTENDING NOTE PATIENT SEEN AND PERSONALLY EXAMINED. CASE DISCUSSED WITH RESIDENT. AGREE WITH FINDINGS AND PLAN.
[2017-03-15] MEDS ORDERED: DiphenhydrAMINE 50 mg/ml Inj IVP PRN (14:42)
--- NOTE | 2017-03-15 16:12 | CP.PCM.PN ---
Subjective - Date & Time of Evaluation Date of Evaluation: 03/15/17 Time of Evaluation: 16:12 - Subjective Subjective: ID Note- Pt. seen and examined today. denies any fever or chills. has been having diarrhea today but also states after she drank contrast fluid for CT got more diarrhea. as per nurse pt. is going for abd ct bc apparently she complained of fullness sensation in her abdomen earlier today. Objective - Vital Signs/Intake and Output Vital Signs (last 24 hours): Temp Pulse Resp BP Pulse Ox 97.9 F 92 H 20 146/87 99 03/15/17 16:02 03/15/17 16:02 03/15/17 16:02 03/15/17 16:02 03/15/17 16:02 - Medications Medications: Current Medications Acetaminophen (Tylenol 325mg Tab) 650 mg PO Q4H PRN PRN Reason: Temp >100 Amlodipine Besylate (Norvasc) 5 mg PO DAILY [facility] Last Admin: 03/15/17 09:52 Dose: 5 mg Bisacodyl (Dulcolax) 5 mg PO DAILY PRN PRN Reason: Constipation Cinacalcet (Sensipar) 30 mg PO DAILY [facility] Last Admin: 03/15/17 09:54 Dose: 30 mg Diphenhydramine HCl (Benadryl) 25 mg IVP Q6 PRN PRN Reason: Allergy symptoms Docusate Sodium (Colace) 100 mg PO BID [facility] Last Admin: 03/15/17 09:49 Dose: 100 mg Home Med (Tacrolimus [Prograf]) 5 mg PO BID [facility] Last Admin: 03/15/17 09:53 Dose: 5 mg Meropenem 1 gm/ Sodium (Chloride) 100 mls @ 100 mls/hr IVPB Q12 [facility] Last Admin: 03/15/17 09:52 Dose: 100 mls/hr Iron Sucrose 100 mg/ Sodium (Chloride) 105 mls @ 105 mls/hr IVPB DAILY [facility] Stop: 03/18/17 09:01 Last Admin: 03/15/17 09:54 Dose: 105 mls/hr Lidocaine (Lidoderm) 1 ea TD DAILY [facility] Last Admin: 03/15/17 09:51 Dose: 1 ea Metoclopramide HCl (Reglan) 10 mg IVP Q6 PRN PRN Reason: Nausea/Vomiting Metronidazole (Flagyl) 500 mg PO Q8 [facility] Last Admin: 03/15/17 09:50 Dose: 500 mg Mycophenolate Mofetil (Cellcept Cap) 250 mg PO BID [facility] Last Admin: 03/15/17 09:49 Dose: 250 mg Ondansetron HCl (Zofran Inj) 4 mg IVP Q4 PRN PRN Reason: Nausea/Vomiting Last Admin: 03/15/17 15:46 Dose: 4 mg Pantoprazole Sodium (Protonix Ec Tab) 40 mg PO DAILY [facility] Last Admin: 03/15/17 09:53 Dose: 40 mg Prednisone (Prednisone Tab) 5 mg PO DAILY [facility] Last Admin: 03/15/17 09:53 Dose: 5 mg Saccharomyces Boulardii (Florastor) 250 mg PO BID [facility] Last Admin: 03/15/17 09:51 Dose: 250 mg Sennosides (Senokot Tab) 17.2 mg PO HS [facility] Last Admin: 03/14/17 21:36 Dose: Not Given Tramadol HCl (Ultram) 50 mg PO Q6 [facility] Trimethoprim/Sulfamethoxazole (Bactrim Ds Tab) 1 tab PO MOWEFR [facility] Last Admin: 03/13/17 16:16 Dose: 1 tab - Labs Labs: - Additional Findings Additional findings: Constitutional Appears: No Acute Distress, Chronically Ill - Head Exam Head Exam: ATRAUMATIC - Eye Exam Eye Exam: EOMI, PERRL - ENT Exam ENT Exam: Normal Oropharynx - Neck Exam Neck exam: Positive for: Full Rom - Respiratory Exam Respiratory Exam: Clear to Auscultation Bilateral, NORMAL BREATHING PATTERN - Cardiovascular Exam Cardiovascular Exam: RRR, +S1, +S2 - GI/Abdominal Exam GI & Abdominal Exam: Normal Bowel Sounds, Soft Additional comments: No tenderness with palpation No guarding no rebound - Extremities Exam Extremities exam: Positive for: normal inspection - Neurological Exam Neurological exam: Alert, Oriented x 3 Laboratory Results - last 72 hr 03/11/17 03/11/17 03/12/17 10:20 20:45 12:02 WBC RBC Hgb Hct MCV MCH MCHC RDW Plt Count Sodium Potassium Chloride Carbon Dioxide Anion Gap BUN Creatinine Est GFR ( Amer) Est GFR (Non-Af Amer) POC Glucose (mg/dL) 125 H Random Glucose Calcium C. difficile Tox B Gene Detected H C. difficile Ag & Toxin Positive antigen 03/12/17 03/12/1717 16:22 21:17 05:15 WBC 7.3 RBC 3.64 L Hgb 10.6 L Hct 32.8 L MCV 90.1 MCH 29.2 MCHC 32.4 L RDW 15.3 H Plt Count 220 Sodium Potassium Chloride Carbon Dioxide Anion Gap BUN Creatinine Est GFR ( Amer) Est GFR (Non-Af Amer) POC Glucose (mg/dL) 110 101 Random Glucose Calcium C. difficile Tox B Gene C. difficile Ag & Toxin 03/13/17 03/13/17 03/13/17 05:15 05:33 11:01 WBC RBC Hgb Hct MCV MCH MCHC RDW Plt Count Sodium 136 Potassium 4.0 Chloride 101 Carbon Dioxide 27 Anion Gap 12 BUN 15 Creatinine 0.8 Est GFR ( Amer) > 60 Est GFR (Non-Af Amer) > 60 POC Glucose (mg/dL) 86 106 Random Glucose 88 Calcium 12.0 H C. difficile Tox B Gene C. difficile Ag & Toxin 03/13/17 03/13/17 03/14/17 16:43 21:37 05:00 WBC 6.8 RBC 3.92 Hgb 11.3 L Hct 35.2 MCV 89.8 MCH 28.8 MCHC 32.0 L RDW 15.3 H Plt Count 226 Sodium Potassium Chloride Carbon Dioxide Anion Gap BUN Creatinine Est GFR ( Amer) Est GFR (Non-Af Amer) POC Glucose (mg/dL) 208 H 159 H Random Glucose Calcium C. difficile Tox B Gene C. difficile Ag & Toxin 03/14/17 03/14/17 03/14/17 05:00 05:12 11:23 WBC RBC Hgb Hct MCV MCH MCHC RDW Plt Count Sodium 134 Potassium 4.4 Chloride 100 Carbon Dioxide 26 Anion Gap 12 BUN 18 H Creatinine 0.8 Est GFR ( Amer) > 60 Est GFR (Non-Af Amer) > 60 POC Glucose (mg/dL) 126 H 171 H Random Glucose 115 H Calcium 11.6 H C. difficile Tox B Gene C. difficile Ag & Toxin 03/14/17 03/14/17 03/14/17 16:26 21:51 22:19 WBC RBC Hgb Hct MCV MCH MCHC RDW Plt Count Sodium Potassium Chloride Carbon Dioxide Anion Gap BUN Creatinine Est GFR ( Amer) Est GFR (Non-Af Amer) POC Glucose (mg/dL) 270 H 151 H Random Glucose Calcium C. difficile Tox B Gene C. difficile Ag & Toxin Positive antigen 03/15/17 03/15/17 03/15/17 05:15 05:33 11:35 WBC 6.3 RBC 3.80 Hgb 11.0 L Hct 34.4 MCV 90.4 MCH 29.0 MCHC 32.1 L RDW 15.3 H Plt Count 219 Sodium Potassium Chloride Carbon Dioxide Anion Gap BUN Creatinine Est GFR ( Amer) Est GFR (Non-Af Amer) POC Glucose (mg/dL) 100 160 H Random Glucose Calcium C. difficile Tox B Gene C. difficile Ag & Toxin 03/15/17 16:41 WBC RBC Hgb Hct MCV MCH MCHC RDW Plt Count Sodium Potassium Chloride Carbon Dioxide Anion Gap BUN Creatinine Est GFR ( Amer) Est GFR (Non-Af Amer) POC Glucose (mg/dL) 129 H Random Glucose Calcium C. difficile Tox B Gene C. difficile Ag & Toxin Microbiology 03/10/17 14:15 Blood Blood Culture - Final NO GROWTH AFTER 5 DAYS 03/10/17 14:15 Blood Gram Stain - Final TEST NOT PERFORMED 03/10/17 14:30 Blood Blood Culture - Final NO GROWTH AFTER 5 DAYS 03/10/17 14:30 Blood Gram Stain - Final TEST NOT PERFORMED 03/10/17 16:25 Urine Urine Culture - Final Escherichia Coli Accession No. : [id number] Patient Name / ID : ANKUR JIMENEZ D / [id number] Exam Date : 03/14/2017 14:47:06 ( Approved ) Study Comment : Sex / Age : F / 61Y Creator : MIKE ANSARI MD Dictator : MIKE ANSARI MD Crane Assembler : In Home Nanny : MIKE ANSARI MD Approver2 : Report Date : 03/14/2017 15:41:29 My Comment : HISTORY: constipation COMPARISON: CT abdomen and pelvis from 03/10/2017 FINDINGS: BOWEL: There are normal caliber gas filled bowel loops in the abdomen. There is moderate amount of stool in the rectum. BONES: Normal. OTHER FINDINGS: Atherosclerotic vascular calcifications are present. IMPRESSION: Nonobstructive bowel-gas pattern. 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 pseudo diverticulum vs abscess as per CT report. clinically improving. afebrile Leukocytosis has resolved. Ct report noted. stool c.diff- positive both AG and toxin urine cx- e.coli NOT esbl blood cx- neg x 2 plan- In light of previous ESBL uti and pt. being immune suppressed and ? allergy to cephalosporins advise to continue with Iv meropenm eventhough this admission urine cx is NOt ESBL. day #6 of meropenem. advise total of 14 days of Iv abx. advise to continue with po metronidazole for positive c.diff colitis. day #[address] on probiotics while on Iv abx. check repeat stool c.diff .
[2017-03-15] MEDS: Tmp-Smz 800 mg-160 mg DS Tab PO SCH (17:01)
--- NOTE | 2017-03-15 19:10 | CT ---
PROCEDURE: CT Abdomen and Pelvis without intravenous contrast HISTORY: worsening left lower back pain, colitis, abscess? COMPARISON: None. TECHNIQUE: Axial and reformatted coronal and sagittal CT images of the abdomen and pelvis where obtained without IV contrast administration. Oral contrast was given.. Contrast Dose: 0 Radiation dose: Total exam DLP = 195.66 mGy-cm. This CT exam was performed using one or more of the following dose reduction techniques: Automated exposure control, adjustment of the mA and/or kV according to patient size, and/or use of iterative reconstruction technique. FINDINGS: LOWER THORAX: No evidence of acute pathology at the lung bases. LIVER: Hepatomegaly is again noted. No evidence of mass lesion in the liver in this noncontrast exam. GALLBLADDER AND BILE DUCTS: The gallbladder is mildly distended contains gallstones. No evidence of acute cholecystitis. PANCREAS: Unremarkable. No gross lesion or ductal dilatation. SPLEEN: Unremarkable. ADRENALS: Unremarkable. No mass. KIDNEYS AND URETERS: The kidneys are small in size consistent with end-stage renal disease. Transplanted kidney is again seen at the right pelvis. VASCULATURE: Diffuse vascular calcification in the abdomen and pelvis likely related to end-stage renal disease. . No aortic aneurysm. BOWEL: Again seen is long segment of market sigmoid colon wall thickening with retention of feces in the sigmoid colon. Findings have not significantly changed when compared to the previous exam. Moderate constipation in the ascending and transverse colon is again noted. No evidence of high-grade bowel obstruction. The assessment of the sigmoid colon is limited in this study. Scattered colonic diverticulosis are again seen. APPENDIX: The appendix is not visualized. There is no evidence of appendicitis. PERITONEUM: Unremarkable. No free fluid. No free air. LYMPH NODES: Unremarkable. No enlarged lymph nodes. BLADDER: Unremarkable. REPRODUCTIVE: Unremarkable. BONES: Diffuse osteopenia is again noted. Findings are also suspicious for renal osteodystrophy. There is moderate compression deformity at the superior endplate of L3 new compared to the previous exam. OTHER FINDINGS: None. IMPRESSION: No significant interval change when compared to the previous exam. Re- demonstration of significant sigmoid colon wall thickening which is moderately distended and contains moderate amount of feces. The possibility of distal large bowel obstruction or stricture should be excluded. The differential diagnosis includes colitis. New or worsening compression deformity at L3 vertebral body since the previous study.
[2017-03-16] MEDS: Meropenem 1 GM in Sodium Chloride 0.9% 100 ML IVPB SCH ×2 (09:51→22:25)
[2017-03-16] MEDS: PROGRAF 5 MG PO SCH ×2 (09:56→17:11)
[2017-03-16] MEDS: Saccharomyces Boulardi 250 mg Cap PO SCH ×2 (09:57→17:13)
[2017-03-16] MEDS: Lidocaine 5% Patch TD SCH (09:58)
[2017-03-16] MEDS: Pantoprazole 40 mg EC Tab PO SCH (09:58)
--- NOTE | 2017-03-16 12:02 | CP.PCM.PN ---
<Mike Mcnamara - Last Filed: 03/16/17 11:57> Subjective - Date & Time of Evaluation Date of Evaluation: 03/16/17 Time of Evaluation: 11:57 - Subjective Subjective: Patient seen and examined today at bedside, no acute overnight events, abdominal pain/back pain still present though improved. States good appetite, normal BM yesterday and this morning. Denies fever, nausea, vomiting, no diarrhea, no headache. No urinary symptoms. CT abdomen/pelvis completed. Tolerating diet well. Objective - Vital Signs/Intake and Output Vital Signs (last 24 hours): Temp Pulse Resp BP Pulse Ox 97.8 F 90 18 133/78 100 03/16/17 08:00 03/16/17 09:57 03/16/17 08:00 03/16/17 09:57 03/16/17 08:00 - Medications Medications: Current Medications Acetaminophen (Tylenol 325mg Tab) 650 mg PO Q4H PRN PRN Reason: Temp >100 Amlodipine Besylate (Norvasc) 5 mg PO DAILY [facility] Last Admin: 03/16/17 09:57 Dose: 5 mg Bisacodyl (Dulcolax) 5 mg PO DAILY PRN PRN Reason: Constipation Cinacalcet (Sensipar) 30 mg PO DAILY [facility] Last Admin: 03/16/17 09:59 Dose: 30 mg Diphenhydramine HCl (Benadryl) 25 mg IVP Q6 PRN PRN Reason: Allergy symptoms Docusate Sodium (Colace) 100 mg PO BID [facility] Last Admin: 03/15/17 17:01 Dose: Not Given Home Med (Tacrolimus [Prograf]) 5 mg PO BID [facility] Last Admin: 03/16/17 09:56 Dose: 5 mg Meropenem 1 gm/ Sodium (Chloride) 100 mls @ 100 mls/hr IVPB Q12 [facility] Last Admin: 03/16/17 09:51 Dose: 100 mls/hr Iron Sucrose 100 mg/ Sodium (Chloride) 105 mls @ 105 mls/hr IVPB DAILY [facility] Stop: 03/18/17 09:01 Last Admin: 03/15/17 09:54 Dose: 105 mls/hr Lidocaine (Lidoderm) 1 ea TD DAILY [facility] Last Admin: 03/16/17 09:58 Dose: 1 ea Metoclopramide HCl (Reglan) 10 mg IVP Q6 PRN PRN Reason: Nausea/Vomiting Metronidazole (Flagyl) 500 mg PO Q8 [facility] Last Admin: 03/16/17 09:56 Dose: 500 mg Mycophenolate Mofetil (Cellcept Cap) 250 mg PO BID [facility] Last Admin: 03/16/17 09:56 Dose: 250 mg Ondansetron HCl (Zofran Inj) 4 mg IVP Q4 PRN PRN Reason: Nausea/Vomiting Last Admin: 03/15/17 15:46 Dose: 4 mg Pantoprazole Sodium (Protonix Ec Tab) 40 mg PO DAILY [facility] Last Admin: 03/16/17 09:58 Dose: 40 mg Prednisone (Prednisone Tab) 5 mg PO DAILY [facility] Last Admin: 03/16/17 09:58 Dose: 5 mg Saccharomyces Boulardii (Florastor) 250 mg PO BID [facility] Last Admin: 03/16/17 09:57 Dose: 250 mg Sennosides (Senokot Tab) 17.2 mg PO HS [facility] Last Admin: 03/15/17 21:27 Dose: 17.2 mg Tramadol HCl (Ultram) 50 mg PO Q6 PRN PRN Reason: Pain, severe (8-10) Trimethoprim/Sulfamethoxazole (Bactrim Ds Tab) 1 tab PO MOWEFR [facility] Last Admin: 03/15/17 17:01 Dose: 1 tab - Labs Labs: 03/15/17 05:15 03/14/17 05:00 PT 12.5 Seconds (9.8-13.1) 03/10/17 13:10 INR 1.2 (0.9-1.2) 03/10/17 13:10 APTT 28.4 Seconds (25.6-37.1) 03/10/17 13:10 - Constitutional Appears: Non-toxic, No Acute Distress, Cachectic - Head Exam Head Exam: ATRAUMATIC, NORMAL INSPECTION, NORMOCEPHALIC - Eye Exam Eye Exam: Normal appearance - Neck Exam Neck Exam: Normal Inspection - Respiratory Exam Respiratory Exam: Clear to Ausculation Bilateral, NORMAL BREATHING PATTERN. absent: Decreased Breath Sounds, Rales, Rhonchi, Wheezes - Cardiovascular Exam Cardiovascular Exam: REGULAR RHYTHM, RRR, +S1, +S2 - GI/Abdominal Exam GI & Abdominal Exam: Soft, Tenderness (llq), Normal Bowel Sounds - Extremities Exam Extremities Exam: Normal Inspection. absent: Calf Tenderness, Pedal Edema - Back Exam Back Exam: tenderness (left lower) - Neurological Exam Neurological Exam: Alert, Awake, Oriented x3 - Psychiatric Exam Psychiatric exam: Normal Affect, Normal Mood - Skin Skin Exam: Dry, Intact, Normal Color, Warm Assessment and Plan - Assessment and Plan (Free Text) Assessment: 61 year old female w/ PMH of renal transplant 11 years ago, DM, multiple admissions for diverticulitis presents w/ left lower abd/back pain. 1) Abdominal pain - 2' to Diverticulitis/colitis/bowel obstruction? - Liquid diet - WBC normal - c/w Meropenem 1gm Q12 day 7 (total 14 days) - Pain controlled with tramadol PRN for severe pain and lidocaine patch. - IV fluids - stool C. Diff antigen + - c/w Flagyl 500mg PO q8 - Probiotics - GI following - CT abdomen w/ PO contrast 03/15/17 No significant interval change when compared to the previous exam. Re- demonstration of significant sigmoid colon wall thickening which is moderately distended and contains moderate amount of feces. The possibility of distal large bowel obstruction or stricture should be excluded. The differential diagnosis includes colitis. New or worsening compression deformity at L3 vertebral body since the previous study. -Surgery and GI aware of new findings, surgery will re-evaluate 2) Compression fracture L3 level. -h/o fall 3 months ago -Neurosurgery consulted, spoke w/ Dr Rueda and said that further evaluation with MRI is needed. 3) Hypercalcemia. - Heme/onc consulted, following - Likely secondary to CKD - Continue w/ Cinacalet 30 mg PO daily - IV hydration 4) CKD - Nephro consult appreciated, Dr Glez recommends c/w current treatment. - Continue IV hydration 5) DM2 - Currently patient not on treatment - Last HBA1C on 12/18/16 was: 7.3 6) Chronic UTI - H/O ESBL - PT takes Bactrim DS M- W- F for prophylaxis - c/w Meropenem 1gm Q12 day 7 (total 14 days) 7) Constipation -Docusate sodium 100 mg PO BID -Ducolax 5mg PO daily PRN -Senakot 17.2 PO HS 8) Prophylaxis GI: PPI and probiotics on board DVT Prophylaxis: SCD <Virginia Boyer - Last Filed: 03/17/17 09:19> Objective - Vital Signs/Intake and Output Vital Signs (last 24 hours): Temp Pulse Resp BP Pulse Ox 97.8 F 95 H 18 132/83 99 03/17/17 08:00 03/17/17 09:08 03/17/17 08:00 03/17/17 09:08 03/17/17 08:00 - Medications Medications: Current Medications Acetaminophen (Tylenol 325mg Tab) 650 mg PO Q4H PRN PRN Reason: Temp >100 Amlodipine Besylate (Norvasc) 5 mg PO DAILY [facility] Last Admin: 03/17/17 09:08 Dose: 5 mg Bisacodyl (Dulcolax) 5 mg PO DAILY PRN PRN Reason: Constipation Cinacalcet (Sensipar) 30 mg PO DAILY [facility] Last Admin: 03/17/17 09:08 Dose: 30 mg Diphenhydramine HCl (Benadryl) 25 mg IVP Q6 PRN PRN Reason: Allergy symptoms Docusate Sodium (Colace) 100 mg PO BID [facility] Last Admin: 03/16/17 17:12 Dose: Not Given Home Med (Tacrolimus [Prograf]) 5 mg PO BID [facility] Last Admin: 03/17/17 09:14 Dose: 5 mg Meropenem 1 gm/ Sodium (Chloride) 100 mls @ 100 mls/hr IVPB Q12 [facility] Last Admin: 03/17/17 09:05 Dose: 100 mls/hr Iron Sucrose 100 mg/ Sodium (Chloride) 105 mls @ 105 mls/hr IVPB DAILY [facility] Stop: 03/18/17 09:01 Last Admin: 03/16/17 15:37 Dose: 105 mls/hr Lidocaine (Lidoderm) 1 ea TD DAILY [facility] Last Admin: 03/17/17 09:05 Dose: 1 ea Metoclopramide HCl (Reglan) 10 mg IVP Q6 PRN PRN Reason: Nausea/Vomiting Metronidazole (Flagyl) 500 mg PO Q8 [facility] Last Admin: 03/17/17 09:05 Dose: 500 mg Mycophenolate Mofetil (Cellcept Cap) 250 mg PO BID [facility] Last Admin: 03/17/17 09:09 Dose: 250 mg Ondansetron HCl (Zofran Inj) 4 mg IVP Q4 PRN PRN Reason: Nausea/Vomiting Last Admin: 03/15/17 15:46 Dose: 4 mg Pantoprazole Sodium (Protonix Ec Tab) 40 mg PO DAILY [facility] Last Admin: 03/17/17 09:14 Dose: 40 mg Prednisone (Prednisone Tab) 5 mg PO DAILY [facility] Last Admin: 03/17/17 09:14 Dose: 5 mg Saccharomyces Boulardii (Florastor) 250 mg PO BID [facility] Last Admin: 03/17/17 09:07 Dose: 250 mg Sennosides (Senokot Tab) 17.2 mg PO HS [facility] Last Admin: 03/16/17 22:26 Dose: 17.2 mg Tramadol HCl (Ultram) 50 mg PO Q6 PRN PRN Reason: Pain, severe (8-10) Trimethoprim/Sulfamethoxazole (Bactrim Ds Tab) 1 tab PO MOWEFR [facility] Last Admin: 03/15/17 17:01 Dose: 1 tab - Labs Labs: 03/17/17 05:30 03/17/17 05:30 PT 12.5 Seconds (9.8-13.1) 03/10/17 13:10 INR 1.2 (0.9-1.2) 03/10/17 13:10 APTT 28.4 Seconds (25.6-37.1) 03/10/17 13:10 - Skin Additional comments: ADDENDUM ATTENDING NOTE PATIENT SEEN AND EXAMINED. ABD SOFT BUT CONTINUES WITH LLQ TENDERNESS. CASE DISCUSSED WITH RESIDENT. AGREE WITH PLAN. GI AND GENERAL SURGERY REEVALUATION TO BE DONE. POSSIBLE ENDOSCOPY VS SURG INTERVENTION - NEEDS DIAGNOSIS. ? COLON NEOPLASM.
--- NOTE | 2017-03-16 17:08 | CP.PCM.PN ---
Subjective - Date & Time of Evaluation Date of Evaluation: 03/16/17 Time of Evaluation: 17:05 - Subjective Subjective: SPINE Awaiting MRI but previous studies reviewed. Pt w superior end plate fx seen on study 07/05. However, defitely more compression now compared to abd CT 01/18/17. Obviously don't know exactly when this occurred but fx still stable and does not require operative intervention. If symptomatic at that level, can order Wells brace to be worn when OOB. Please recall if/when pt has further studies done. Thanks. Objective - Vital Signs/Intake and Output Vital Signs (last 24 hours): Temp Pulse Resp BP Pulse Ox 98.4 F 100 H 14 97/56 L 96 03/16/17 16:54 03/16/17 16:54 03/16/17 16:54 03/16/17 16:54 03/16/17 16:54 - Medications Medications: Current Medications Acetaminophen (Tylenol 325mg Tab) 650 mg PO Q4H PRN PRN Reason: Temp >100 Amlodipine Besylate (Norvasc) 5 mg PO DAILY [facility] Last Admin: 03/16/17 09:57 Dose: 5 mg Bisacodyl (Dulcolax) 5 mg PO DAILY PRN PRN Reason: Constipation Cinacalcet (Sensipar) 30 mg PO DAILY [facility] Last Admin: 03/16/17 09:59 Dose: 30 mg Diphenhydramine HCl (Benadryl) 25 mg IVP Q6 PRN PRN Reason: Allergy symptoms Docusate Sodium (Colace) 100 mg PO BID [facility] Last Admin: 03/16/17 09:50 Dose: 100 mg Home Med (Tacrolimus [Prograf]) 5 mg PO BID [facility] Last Admin: 03/16/17 09:56 Dose: 5 mg Meropenem 1 gm/ Sodium (Chloride) 100 mls @ 100 mls/hr IVPB Q12 [facility] Last Admin: 03/16/17 09:51 Dose: 100 mls/hr Iron Sucrose 100 mg/ Sodium (Chloride) 105 mls @ 105 mls/hr IVPB DAILY [facility] Stop: 03/18/17 09:01 Last Admin: 03/16/17 15:37 Dose: 105 mls/hr Lidocaine (Lidoderm) 1 ea TD DAILY [facility] Last Admin: 03/16/17 09:58 Dose: 1 ea Metoclopramide HCl (Reglan) 10 mg IVP Q6 PRN PRN Reason: Nausea/Vomiting Metronidazole (Flagyl) 500 mg PO Q8 [facility] Last Admin: 03/16/17 09:56 Dose: 500 mg Mycophenolate Mofetil (Cellcept Cap) 250 mg PO BID [facility] Last Admin: 03/16/17 09:56 Dose: 250 mg Ondansetron HCl (Zofran Inj) 4 mg IVP Q4 PRN PRN Reason: Nausea/Vomiting Last Admin: 03/15/17 15:46 Dose: 4 mg Pantoprazole Sodium (Protonix Ec Tab) 40 mg PO DAILY [facility] Last Admin: 03/16/17 09:58 Dose: 40 mg Prednisone (Prednisone Tab) 5 mg PO DAILY [facility] Last Admin: 03/16/17 09:58 Dose: 5 mg Saccharomyces Boulardii (Florastor) 250 mg PO BID [facility] Last Admin: 03/16/17 09:57 Dose: 250 mg Sennosides (Senokot Tab) 17.2 mg PO HS [facility] Last Admin: 03/15/17 21:27 Dose: 17.2 mg Tramadol HCl (Ultram) 50 mg PO Q6 PRN PRN Reason: Pain, severe (8-10) Trimethoprim/Sulfamethoxazole (Bactrim Ds Tab) 1 tab PO MOWEFR [facility] Last Admin: 03/15/17 17:01 Dose: 1 tab - Labs Labs: 03/15/17 05:15 03/14/17 05:00 PT 12.5 Seconds (9.8-13.1) 03/10/17 13:10 INR 1.2 (0.9-1.2) 03/10/17 13:10 APTT 28.4 Seconds (25.6-37.1) 03/10/17 13:10
--- NOTE | 2017-03-16 17:22 | CP.PCM.PN ---
<Adam Moreira - Last Filed: 03/16/17 17:17> Subjective - Date & Time of Evaluation Date of Evaluation: 03/16/17 Time of Evaluation: 17:17 - Subjective Subjective: Surgery: Dr. Knowles No plans for surgical intervention at this time. Pt can follow up out pt. Will need future colonoscopy once diverticulitis resolves discussed w. Dr. Eleni Moreira PGY3 Objective - Vital Signs/Intake and Output Vital Signs (last 24 hours): Temp Pulse Resp BP Pulse Ox 98.4 F 100 H 14 97/56 L 96 03/16/17 16:54 03/16/17 16:54 03/16/17 16:54 03/16/17 16:54 03/16/17 16:54 - Medications Medications: Current Medications Acetaminophen (Tylenol 325mg Tab) 650 mg PO Q4H PRN PRN Reason: Temp >100 Amlodipine Besylate (Norvasc) 5 mg PO DAILY [facility] Last Admin: 03/16/17 09:57 Dose: 5 mg Bisacodyl (Dulcolax) 5 mg PO DAILY PRN PRN Reason: Constipation Cinacalcet (Sensipar) 30 mg PO DAILY [facility] Last Admin: 03/16/17 09:59 Dose: 30 mg Diphenhydramine HCl (Benadryl) 25 mg IVP Q6 PRN PRN Reason: Allergy symptoms Docusate Sodium (Colace) 100 mg PO BID [facility] Last Admin: 03/16/17 17:12 Dose: Not Given Home Med (Tacrolimus [Prograf]) 5 mg PO BID [facility] Last Admin: 03/16/17 17:11 Dose: 5 mg Meropenem 1 gm/ Sodium (Chloride) 100 mls @ 100 mls/hr IVPB Q12 [facility] Last Admin: 03/16/17 09:51 Dose: 100 mls/hr Iron Sucrose 100 mg/ Sodium (Chloride) 105 mls @ 105 mls/hr IVPB DAILY [facility] Stop: 03/18/17 09:01 Last Admin: 03/16/17 15:37 Dose: 105 mls/hr Lidocaine (Lidoderm) 1 ea TD DAILY [facility] Last Admin: 03/16/17 09:58 Dose: 1 ea Metoclopramide HCl (Reglan) 10 mg IVP Q6 PRN PRN Reason: Nausea/Vomiting Metronidazole (Flagyl) 500 mg PO Q8 [facility] Last Admin: 03/16/17 17:12 Dose: 500 mg Mycophenolate Mofetil (Cellcept Cap) 250 mg PO BID [facility] Last Admin: 03/16/17 17:12 Dose: 250 mg Ondansetron HCl (Zofran Inj) 4 mg IVP Q4 PRN PRN Reason: Nausea/Vomiting Last Admin: 03/15/17 15:46 Dose: 4 mg Pantoprazole Sodium (Protonix Ec Tab) 40 mg PO DAILY [facility] Last Admin: 03/16/17 09:58 Dose: 40 mg Prednisone (Prednisone Tab) 5 mg PO DAILY [facility] Last Admin: 03/16/17 09:58 Dose: 5 mg Saccharomyces Boulardii (Florastor) 250 mg PO BID [facility] Last Admin: 03/16/17 17:13 Dose: 250 mg Sennosides (Senokot Tab) 17.2 mg PO HS [facility] Last Admin: 03/15/17 21:27 Dose: 17.2 mg Tramadol HCl (Ultram) 50 mg PO Q6 PRN PRN Reason: Pain, severe (8-10) Trimethoprim/Sulfamethoxazole (Bactrim Ds Tab) 1 tab PO MOWEFR [facility] Last Admin: 03/15/17 17:01 Dose: 1 tab - Labs Labs: 03/15/17 05:15 03/14/17 05:00 PT 12.5 Seconds (9.8-13.1) 03/10/17 13:10 INR 1.2 (0.9-1.2) 03/10/17 13:10 APTT 28.4 Seconds (25.6-37.1) 03/10/17 13:10 <Jean Claude Knowles B - Last Filed: 03/17/17 18:35> Objective - Vital Signs/Intake and Output Vital Signs (last 24 hours): Temp Pulse Resp BP Pulse Ox 98.3 F 94 H 18 131/75 99 03/17/17 16:11 03/17/17 16:11 03/17/17 16:11 03/17/17 16:11 03/17/17 16:11 Intake and Output: 03/17/17 03/17/17 06:59 18:59 Intake Total 960 Balance 960 - Medications Medications: Current Medications Acetaminophen (Tylenol 325mg Tab) 650 mg PO Q4H PRN PRN Reason: Temp >100 Amlodipine Besylate (Norvasc) 5 mg PO DAILY [facility] Last Admin: 03/17/17 09:08 Dose: 5 mg Bisacodyl (Dulcolax) 5 mg PO DAILY PRN PRN Reason: Constipation Cinacalcet (Sensipar) 30 mg PO DAILY [facility] Last Admin: 03/17/17 09:08 Dose: 30 mg Diphenhydramine HCl (Benadryl) 25 mg IVP Q6 PRN PRN Reason: Allergy symptoms Docusate Sodium (Colace) 100 mg PO BID [facility] Last Admin: 03/17/17 16:01 Dose: Not Given Home Med (Tacrolimus [Prograf]) 5 mg PO BID [facility] Last Admin: 03/17/17 16:00 Dose: 5 mg Meropenem 1 gm/ Sodium (Chloride) 100 mls @ 100 mls/hr IVPB Q12 [facility] Last Admin: 03/17/17 09:05 Dose: 100 mls/hr Iron Sucrose 100 mg/ Sodium (Chloride) 105 mls @ 105 mls/hr IVPB DAILY [facility] Stop: 03/18/17 09:01 Last Admin: 03/17/17 11:34 Dose: 105 mls/hr Lidocaine (Lidoderm) 1 ea TD DAILY [facility] Last Admin: 03/17/17 09:05 Dose: 1 ea Metoclopramide HCl (Reglan) 10 mg IVP Q6 PRN PRN Reason: Nausea/Vomiting Metronidazole (Flagyl) 500 mg PO Q8 [facility] Last Admin: 03/17/17 16:00 Dose: 500 mg Mycophenolate Mofetil (Cellcept Cap) 250 mg PO BID [facility] Last Admin: 03/17/17 16:01 Dose: 250 mg Ondansetron HCl (Zofran Inj) 4 mg IVP Q4 PRN PRN Reason: Nausea/Vomiting Last Admin: 03/15/17 15:46 Dose: 4 mg Pantoprazole Sodium (Protonix Ec Tab) 40 mg PO DAILY [facility] Last Admin: 03/17/17 09:14 Dose: 40 mg Prednisone (Prednisone Tab) 5 mg PO DAILY [facility] Last Admin: 03/17/17 09:14 Dose: 5 mg Saccharomyces Boulardii (Florastor) 250 mg PO BID [facility] Last Admin: 03/17/17 16:00 Dose: 250 mg Sennosides (Senokot Tab) 17.2 mg PO HS [facility] Last Admin: 03/16/17 22:26 Dose: 17.2 mg Tramadol HCl (Ultram) 50 mg PO Q6 PRN PRN Reason: Pain, severe (8-10) Last Admin: 03/17/17 15:58 Dose: 50 mg - Labs Labs: 03/17/17 05:30 03/17/17 05:30 PT 12.5 Seconds (9.8-13.1) 03/10/17 13:10 INR 1.2 (0.9-1.2) 03/10/17 13:10 APTT 28.4 Seconds (25.6-37.1) 03/10/17 13:10 Attending/Attestation - Attestation I have personally seen and examined this patient.: Yes I have fully participated in the care of the patient.: Yes I have reviewed all pertinent clinical information, including history, physical exam and plan: Yes Notes (Text): 03/17/17 18:32 Pt was seen and examined at bedside Agree with above note and assessment Pt with Diverticulitis with C diff colitis Pt had episode of acute pain yesterday Pt had CT scan of A/P Repeat CT scan is suggestive of possible Diverticular stricture or obstruction Pt has no clinical signs of obstruction Infact pt is feeling much better today F/U as out pt Colonoscopy as out pt Colon resection after C Diff subsides C/w antibiotics as per ID Plan d.w pt and nurse and primary team in detail Risk and benefit explained in detail.
[2017-03-17 07:05] LABS: HEMATOCRIT 33.8 % (34.0-47.0); MEAN CELL VOLUME 89.7 fl (81.0-99.0); MEAN CORPUSCULAR HEMOGLOBIN 28.8 pg (27.0-31.0); MEAN CORPUSCULAR HGB CONC 32.1 g/dL (33.0-37.0); RED CELL DISTRIBUTION WIDTH 15.5 % (11.5-14.5); WHITE BLOOD COUNT 6.7 K/uL (4.8-10.8)
[2017-03-17 07:23] LABS: CALCIUM 11.8 mg/dL (8.4-10.2); POTASSIUM 4.6 MMOL/L (3.6-5.0)
[2017-03-17] MEDS: Meropenem 1 GM in Sodium Chloride 0.9% 100 ML IVPB SCH ×2 (09:05→21:00)
[2017-03-17] MEDS: Lidocaine 5% Patch TD SCH (09:05)
[2017-03-17] MEDS: Saccharomyces Boulardi 250 mg Cap PO SCH ×2 (09:07→16:00)
[2017-03-17] MEDS: PROGRAF 5 MG PO SCH ×2 (09:14→16:00)
[2017-03-17] MEDS: Pantoprazole 40 mg EC Tab PO SCH (09:14)
--- NOTE | 2017-03-17 11:30 | CP.PCM.PN ---
<Malinda Castillo - Last Filed: 03/17/17 13:21> Subjective - Date & Time of Evaluation Date of Evaluation: 03/17/17 Time of Evaluation: 08:05 - Subjective Subjective: Patient seen and examined today at bedside no overnight events, reports still has mild pain in LLQ and back although improved. States good appetite, slept well, had a normal BM yesterday. Denies fever, nausea, vomiting, no diarrhea. No urinary symptoms. Objective - Vital Signs/Intake and Output Vital Signs (last 24 hours): Temp Pulse Resp BP Pulse Ox 97.8 F 95 H 18 132/83 99 03/17/17 08:00 03/17/17 09:08 03/17/17 08:00 03/17/17 09:08 03/17/17 08:00 - Medications Medications: Current Medications Acetaminophen (Tylenol 325mg Tab) 650 mg PO Q4H PRN PRN Reason: Temp >100 Amlodipine Besylate (Norvasc) 5 mg PO DAILY [facility] Last Admin: 03/17/17 09:08 Dose: 5 mg Bisacodyl (Dulcolax) 5 mg PO DAILY PRN PRN Reason: Constipation Cinacalcet (Sensipar) 30 mg PO DAILY [facility] Last Admin: 03/17/17 09:08 Dose: 30 mg Diphenhydramine HCl (Benadryl) 25 mg IVP Q6 PRN PRN Reason: Allergy symptoms Docusate Sodium (Colace) 100 mg PO BID [facility] Last Admin: 03/16/17 17:12 Dose: Not Given Home Med (Tacrolimus [Prograf]) 5 mg PO BID [facility] Last Admin: 03/17/17 09:14 Dose: 5 mg Meropenem 1 gm/ Sodium (Chloride) 100 mls @ 100 mls/hr IVPB Q12 [facility] Last Admin: 03/17/17 09:05 Dose: 100 mls/hr Iron Sucrose 100 mg/ Sodium (Chloride) 105 mls @ 105 mls/hr IVPB DAILY [facility] Stop: 03/18/17 09:01 Last Admin: 03/16/17 15:37 Dose: 105 mls/hr Lidocaine (Lidoderm) 1 ea TD DAILY [facility] Last Admin: 03/17/17 09:05 Dose: 1 ea Metoclopramide HCl (Reglan) 10 mg IVP Q6 PRN PRN Reason: Nausea/Vomiting Metronidazole (Flagyl) 500 mg PO Q8 [facility] Last Admin: 03/17/17 09:05 Dose: 500 mg Mycophenolate Mofetil (Cellcept Cap) 250 mg PO BID [facility] Last Admin: 03/17/17 09:09 Dose: 250 mg Ondansetron HCl (Zofran Inj) 4 mg IVP Q4 PRN PRN Reason: Nausea/Vomiting Last Admin: 03/15/17 15:46 Dose: 4 mg Pantoprazole Sodium (Protonix Ec Tab) 40 mg PO DAILY [facility] Last Admin: 03/17/17 09:14 Dose: 40 mg Prednisone (Prednisone Tab) 5 mg PO DAILY [facility] Last Admin: 03/17/17 09:14 Dose: 5 mg Saccharomyces Boulardii (Florastor) 250 mg PO BID [facility] Last Admin: 03/17/17 09:07 Dose: 250 mg Sennosides (Senokot Tab) 17.2 mg PO HS [facility] Last Admin: 03/16/17 22:26 Dose: 17.2 mg Tramadol HCl (Ultram) 50 mg PO Q6 PRN PRN Reason: Pain, severe (8-10) Trimethoprim/Sulfamethoxazole (Bactrim Ds Tab) 1 tab PO MOWEFR [facility] Last Admin: 03/15/17 17:01 Dose: 1 tab - Labs Labs: 03/17/17 05:30 03/17/17 05:30 PT 12.5 Seconds (9.8-13.1) 03/10/17 13:10 INR 1.2 (0.9-1.2) 03/10/17 13:10 APTT 28.4 Seconds (25.6-37.1) 03/10/17 13:10 - Constitutional Appears: Well, Non-toxic, No Acute Distress, Cachectic - Head Exam Head Exam: ATRAUMATIC, NORMOCEPHALIC - Eye Exam Eye Exam: EOMI, Normal appearance, PERRL. absent: Nystagmus - ENT Exam ENT Exam: Mucous Membranes Moist - Neck Exam Neck Exam: Full ROM - Respiratory Exam Respiratory Exam: Clear to Ausculation Bilateral, NORMAL BREATHING PATTERN. absent: Rales, Rhonchi, Wheezes - Cardiovascular Exam Cardiovascular Exam: REGULAR RHYTHM, +S1, +S2 - GI/Abdominal Exam GI & Abdominal Exam: Soft, Tenderness (Mild tenderness in LLQ on deep palpation. ), Normal Bowel Sounds. absent: Organomegaly - Extremities Exam Extremities Exam: Full ROM. absent: Calf Tenderness, Pedal Edema - Back Exam Back Exam: NORMAL INSPECTION, tenderness (Over L lumbo sacral area) - Neurological Exam Neurological Exam: Alert, Awake, CN II-XII Intact, Oriented x3 - Psychiatric Exam Psychiatric exam: Normal Mood - Skin Skin Exam: Dry, Pallor, Warm Assessment and Plan - Assessment and Plan (Free Text) Assessment: 61 year old female w/ PMH of renal transplant 11 years ago, DM, multiple admissions for diverticulitis presents w/ left lower abd/back pain. 1) Abdominal pain - 2' to Diverticulitis/colitis/bowel obstruction? - Liquid diet - WBC normal - c/w Meropenem 1gm Q12 day 8 (total 14 days) - Pain controlled with tramadol PRN for severe pain and lidocaine patch. - IV fluids - stool C. Diff antigen + - c/w Flagyl 500mg PO q8 - Probiotics - GI following, aware of new findings, consult appreciated. -Surgery consulted: No plans for surgical intervention at this time. Pt can follow up out pt. Will need future colonoscopy once diverticulitis resolves. Dr. Knowles. 2) Compression fracture L3 level. -h/o fall 3 months ago -Neurosurgery consulted, spoke w/ Dr Rueda and said that further evaluation with MRI is needed. -fx still stable and does not require operative intervention. If symptomatic at that level Wells brace to be worn when OOB. 3) Hypercalcemia. - Heme/onc consulted, following - Likely secondary to CKD - Continue w/ Cinacalet 30 mg PO daily - IV hydration 4) CKD - Nephro consult appreciated, Dr Glez recommends c/w current treatment. - Continue IV hydration 5) DM2 - Currently patient not on treatment - Last HBA1C on 12/18/16 was: 7.3 6) Chronic UTI - H/O ESBL - PT takes Bactrim DS M- W- F for prophylaxis - c/w Meropenem 1gm Q12 day 8 (total 14 days) 7) Constipation -Docusate sodium 100 mg PO BID -Ducolax 5mg PO daily PRN -Senakot 17.2 PO HS 8) Prophylaxis GI: PPI and probiotics on board DVT Prophylaxis: SCD <Merlin,[place] - Last Filed: 03/18/17 07:12> Objective - Vital Signs/Intake and Output Vital Signs (last 24 hours): Temp Pulse Resp BP Pulse Ox 97.8 F 93 H 18 122/55 L 99 03/18/17 05:09 03/18/17 05:09 03/18/17 05:09 03/18/17 05:09 03/18/17 05:09 Intake and Output: 03/18/17 03/18/17 06:59 18:59 Intake Total 300 Balance 300 - Medications Medications: Current Medications Acetaminophen (Tylenol 325mg Tab) 650 mg PO Q4H PRN PRN Reason: Temp >100 Amlodipine Besylate (Norvasc) 5 mg PO DAILY [facility] Last Admin: 03/17/17 09:08 Dose: 5 mg Bisacodyl (Dulcolax) 5 mg PO DAILY PRN PRN Reason: Constipation Cinacalcet (Sensipar) 30 mg PO DAILY [facility] Last Admin: 03/17/17 09:08 Dose: 30 mg Diphenhydramine HCl (Benadryl) 25 mg IVP Q6 PRN PRN Reason: Allergy symptoms Docusate Sodium (Colace) 100 mg PO BID [facility] Last Admin: 03/17/17 16:01 Dose: Not Given Home Med (Tacrolimus [Prograf]) 5 mg PO BID [facility] Last Admin: 03/17/17 16:00 Dose: 5 mg Meropenem 1 gm/ Sodium (Chloride) 100 mls @ 100 mls/hr IVPB Q12 [facility] Last Admin: 03/17/17 21:00 Dose: 100 mls/hr Iron Sucrose 100 mg/ Sodium (Chloride) 105 mls @ 105 mls/hr IVPB DAILY [facility] Stop: 03/18/17 09:01 Last Admin: 03/17/17 11:34 Dose: 105 mls/hr Lidocaine (Lidoderm) 1 ea TD DAILY [facility] Last Admin: 03/17/17 09:05 Dose: 1 ea Metronidazole (Flagyl) 500 mg PO Q8 [facility] Last Admin: 03/18/17 00:10 Dose: 500 mg Mycophenolate Mofetil (Cellcept Cap) 250 mg PO BID [facility] Last Admin: 03/17/17 16:01 Dose: 250 mg Ondansetron HCl (Zofran Inj) 4 mg IVP Q4 PRN PRN Reason: Nausea/Vomiting Last Admin: 03/15/17 15:46 Dose: 4 mg Pantoprazole Sodium (Protonix Ec Tab) 40 mg PO DAILY [facility] Last Admin: 03/17/17 09:14 Dose: 40 mg Prednisone (Prednisone Tab) 5 mg PO DAILY [facility] Last Admin: 03/17/17 09:14 Dose: 5 mg Saccharomyces Boulardii (Florastor) 250 mg PO BID [facility] Last Admin: 03/17/17 16:00 Dose: 250 mg Sennosides (Senokot Tab) 17.2 mg PO HS [facility] Last Admin: 03/17/17 22:10 Dose: 17.2 mg Tramadol HCl (Ultram) 50 mg PO Q6 PRN PRN Reason: Pain, severe (8-10) Last Admin: 03/17/17 15:58 Dose: 50 mg - Labs Labs: 03/17/17 05:30 03/18/17 05:15 PT 12.5 Seconds (9.8-13.1) 03/10/17 13:10 INR 1.2 (0.9-1.2) 03/10/17 13:10 APTT 28.4 Seconds (25.6-37.1) 03/10/17 13:10 - Skin Additional comments: ADDENDUM ATTENDING NOTE PATIENT SEEN AND EXAMINED. CASE DISCUSSED WITH RESIDENT. CONCERN FOR LARGE BOWEL CARCINOMA. GI AND GEN SURGERY CONSULTS. DECIDED I.E. SIGMOIDOSCOPY, MRI, OTHER FURTHER EVALUATION TO OBTAIN DIAGNOSIS.
--- NOTE | 2017-03-17 21:52 | CP.PCM.PN ---
Subjective - Date & Time of Evaluation Date of Evaluation: 03/17/17 Time of Evaluation: 16:00 - Subjective Subjective: SEEN ON RENAL F/U FEELS IMPROVED ALL PREVIOUS EMR REVIEWED SURGERY NOTE APPRECIATED .. FOR SELECTIVE SIGMOITECTOMY AFTER C DIFF RESOLVES CA STILL HIGH Objective - Vital Signs/Intake and Output Vital Signs (last 24 hours): Temp Pulse Resp BP Pulse Ox 98.5 F 91 H 18 127/65 98 03/17/17 19:22 03/17/17 19:22 03/17/17 19:22 03/17/17 19:22 03/17/17 19:22 Intake and Output: 03/17/17 03/18/17 18:59 06:59 Intake Total 960 Balance 960 - Medications Medications: Current Medications Acetaminophen (Tylenol 325mg Tab) 650 mg PO Q4H PRN PRN Reason: Temp >100 Amlodipine Besylate (Norvasc) 5 mg PO DAILY [facility] Last Admin: 03/17/17 09:08 Dose: 5 mg Bisacodyl (Dulcolax) 5 mg PO DAILY PRN PRN Reason: Constipation Cinacalcet (Sensipar) 30 mg PO DAILY [facility] Last Admin: 03/17/17 09:08 Dose: 30 mg Diphenhydramine HCl (Benadryl) 25 mg IVP Q6 PRN PRN Reason: Allergy symptoms Docusate Sodium (Colace) 100 mg PO BID [facility] Last Admin: 03/17/17 16:01 Dose: Not Given Home Med (Tacrolimus [Prograf]) 5 mg PO BID [facility] Last Admin: 03/17/17 16:00 Dose: 5 mg Meropenem 1 gm/ Sodium (Chloride) 100 mls @ 100 mls/hr IVPB Q12 [facility] Last Admin: 03/17/17 09:05 Dose: 100 mls/hr Iron Sucrose 100 mg/ Sodium (Chloride) 105 mls @ 105 mls/hr IVPB DAILY [facility] Stop: 03/18/17 09:01 Last Admin: 03/17/17 11:34 Dose: 105 mls/hr Lidocaine (Lidoderm) 1 ea TD DAILY [facility] Last Admin: 03/17/17 09:05 Dose: 1 ea Metoclopramide HCl (Reglan) 10 mg IVP Q6 PRN PRN Reason: Nausea/Vomiting Metronidazole (Flagyl) 500 mg PO Q8 [facility] Last Admin: 03/17/17 16:00 Dose: 500 mg Mycophenolate Mofetil (Cellcept Cap) 250 mg PO BID [facility] Last Admin: 03/17/17 16:01 Dose: 250 mg Ondansetron HCl (Zofran Inj) 4 mg IVP Q4 PRN PRN Reason: Nausea/Vomiting Last Admin: 03/15/17 15:46 Dose: 4 mg Pantoprazole Sodium (Protonix Ec Tab) 40 mg PO DAILY [facility] Last Admin: 03/17/17 09:14 Dose: 40 mg Prednisone (Prednisone Tab) 5 mg PO DAILY [facility] Last Admin: 03/17/17 09:14 Dose: 5 mg Saccharomyces Boulardii (Florastor) 250 mg PO BID [facility] Last Admin: 03/17/17 16:00 Dose: 250 mg Sennosides (Senokot Tab) 17.2 mg PO HS [facility] Last Admin: 03/16/17 22:26 Dose: 17.2 mg Tramadol HCl (Ultram) 50 mg PO Q6 PRN PRN Reason: Pain, severe (8-10) Last Admin: 03/17/17 15:58 Dose: 50 mg - Labs Labs: 03/17/17 05:30 03/17/17 05:30 PT 12.5 Seconds (9.8-13.1) 03/10/17 13:10 INR 1.2 (0.9-1.2) 03/10/17 13:10 APTT 28.4 Seconds (25.6-37.1) 03/10/17 13:10 Assessment and Plan - Assessment and Plan (Free Text) Assessment: STATUS RENAL TRX .. RENAL FUNCTION STABLE DIVERTICULITIS .. C DIFF COLITIS HYPERCALCEMIA .. PERSISTANT P : C/O CURRENT CARE
[2017-03-18 06:25] LABS: CALCIUM 11.7 mg/dL (8.4-10.2); POTASSIUM 4.6 MMOL/L (3.6-5.0)
[2017-03-18] MEDS: PROGRAF 5 MG PO SCH ×2 (10:13→17:00)
[2017-03-18] MEDS: Saccharomyces Boulardi 250 mg Cap PO SCH ×2 (10:13→17:00)
[2017-03-18] MEDS: Pantoprazole 40 mg EC Tab PO SCH (10:14)
[2017-03-18] MEDS: Lidocaine 5% Patch TD SCH (10:15)
[2017-03-18] MEDS: Meropenem 1 GM in Sodium Chloride 0.9% 100 ML IVPB SCH ×2 (10:16→22:00)
--- NOTE | 2017-03-18 12:24 | CP.PCM.PN ---
Subjective - Date & Time of Evaluation Date of Evaluation: 03/18/17 Time of Evaluation: 15:26 - Subjective Subjective: Id note- Pt. seen and examined today . pt. denies any fever or chills. denies any dysurea. states she has mild tenderness in left lower abd/lower back region. denies any nausea. denies any loose stools today. Objective - Vital Signs/Intake and Output Vital Signs (last 24 hours): Temp Pulse Resp BP Pulse Ox 97.7 F 91 H 20 126/72 100 03/18/17 08:00 03/18/17 10:15 03/18/17 08:00 03/18/17 10:15 03/18/17 08:00 Intake and Output: 03/18/17 03/18/17 06:59 18:59 Intake Total 300 Balance 300 - Medications Medications: Current Medications Acetaminophen (Tylenol 325mg Tab) 650 mg PO Q4H PRN PRN Reason: Temp >100 Amlodipine Besylate (Norvasc) 5 mg PO DAILY [facility] Last Admin: 03/18/17 10:15 Dose: 5 mg Bisacodyl (Dulcolax) 5 mg PO DAILY PRN PRN Reason: Constipation Cinacalcet (Sensipar) 30 mg PO DAILY [facility] Last Admin: 03/18/17 10:13 Dose: 30 mg Diphenhydramine HCl (Benadryl) 25 mg IVP Q6 PRN PRN Reason: Allergy symptoms Docusate Sodium (Colace) 100 mg PO BID [facility] Last Admin: 03/18/17 10:14 Dose: 100 mg Home Med (Tacrolimus [Prograf]) 5 mg PO BID [facility] Last Admin: 03/18/17 10:13 Dose: 5 mg Meropenem 1 gm/ Sodium (Chloride) 100 mls @ 100 mls/hr IVPB Q12 [facility] Last Admin: 03/18/17 10:16 Dose: 100 mls/hr Lidocaine (Lidoderm) 1 ea TD DAILY [facility] Last Admin: 03/18/17 10:15 Dose: 1 ea Metronidazole (Flagyl) 500 mg PO Q8 [facility] Last Admin: 03/18/17 10:14 Dose: 500 mg Mycophenolate Mofetil (Cellcept Cap) 250 mg PO BID [facility] Last Admin: 03/18/17 10:11 Dose: 250 mg Ondansetron HCl (Zofran Inj) 4 mg IVP Q4 PRN PRN Reason: Nausea/Vomiting Last Admin: 03/15/17 15:46 Dose: 4 mg Pantoprazole Sodium (Protonix Ec Tab) 40 mg PO DAILY [facility] Last Admin: 03/18/17 10:14 Dose: 40 mg Prednisone (Prednisone Tab) 5 mg PO DAILY [facility] Last Admin: 03/18/17 10:14 Dose: 5 mg Saccharomyces Boulardii (Florastor) 250 mg PO BID [facility] Last Admin: 03/18/17 10:13 Dose: 250 mg Sennosides (Senokot Tab) 17.2 mg PO HS [facility] Last Admin: 03/17/17 22:10 Dose: 17.2 mg Tramadol HCl (Ultram) 50 mg PO Q6 PRN PRN Reason: Pain, severe (8-10) Last Admin: 03/18/17 10:23 Dose: 50 mg - Labs Labs: - Additional Findings Additional findings: Constitutional Appears: No Acute Distress, Chronically Ill - Head Exam Head Exam: ATRAUMATIC - Eye Exam Eye Exam: EOMI, PERRL - ENT Exam ENT Exam: Normal Oropharynx - Neck Exam Neck exam: Positive for: Full Rom - Respiratory Exam Respiratory Exam: Clear to Auscultation Bilateral, NORMAL BREATHING PATTERN - Cardiovascular Exam Cardiovascular Exam: RRR, +S1, +S2 - GI/Abdominal Exam GI & Abdominal Exam: Normal Bowel Sounds, Soft Additional comments: minimal tenderness with palpation in left lower abdomen and flank region No guarding no rebound - Extremities Exam Extremities exam: Positive for: normal inspection - Neurological Exam Neurological exam: Alert, Oriented x 3 Laboratory Results - last 72 hr 03/15/17 03/15/17 03/16/17 16:41 21:17 06:56 WBC RBC Hgb Hct MCV MCH MCHC RDW Plt Count Sodium Potassium Chloride Carbon Dioxide Anion Gap BUN Creatinine Est GFR ( Amer) Est GFR (Non-Af Amer) POC Glucose (mg/dL) 129 H 94 87 Random Glucose Calcium 03/16/17 03/16/17 03/16/17 11:25 16:33 21:39 WBC RBC Hgb Hct MCV MCH MCHC RDW Plt Count Sodium Potassium Chloride Carbon Dioxide Anion Gap BUN Creatinine Est GFR ( Amer) Est GFR (Non-Af Amer) POC Glucose (mg/dL) 82 90 101 Random Glucose Calcium 03/17/17 03/17/17 03/17/17 05:16 05:30 05:30 WBC 6.7 RBC 3.77 L Hgb 10.8 L Hct 33.8 L MCV 89.7 MCH 28.8 MCHC 32.1 L RDW 15.5 H Plt Count 248 Sodium 132 Potassium 4.6 Chloride 99 Carbon Dioxide 25 Anion Gap 12 BUN 17 Creatinine 1.3 H Est GFR ( Amer) 51 Est GFR (Non-Af Amer) 42 POC Glucose (mg/dL) 82 Random Glucose 88 Calcium 11.8 H 03/17/17 03/17/17 03/17/17 11:30 16:12 21:17 WBC RBC Hgb Hct MCV MCH MCHC RDW Plt Count Sodium Potassium Chloride Carbon Dioxide Anion Gap BUN Creatinine Est GFR ( Amer) Est GFR (Non-Af Amer) POC Glucose (mg/dL) 88 185 H 127 H Random Glucose Calcium 03/18/17 03/18/17 03/18/17 05:15 05:23 06:41 WBC RBC Hgb Hct MCV MCH MCHC RDW Plt Count Sodium 133 Potassium 4.6 Chloride 98 Carbon Dioxide 26 Anion Gap 14 BUN 21 H Creatinine 1.2 Est GFR ( Amer) 55 Est GFR (Non-Af Amer) 46 POC Glucose (mg/dL) 68 111 H Random Glucose 85 Calcium 11.7 H Microbiology 03/10/17 14:15 Blood Blood Culture - Final NO GROWTH AFTER 5 DAYS 03/10/17 14:15 Blood Gram Stain - Final TEST NOT PERFORMED 03/10/17 14:30 Blood Blood Culture - Final NO GROWTH AFTER 5 DAYS 03/10/17 14:30 Blood Gram Stain - Final TEST NOT PERFORMED 03/10/17 16:25 Urine Urine Culture - Final Escherichia Coli Accession No. : [id number] Patient Name / ID : ANKUR JIMENEZ D / [id number] Exam Date : 03/15/2017 18:10:22 ( Approved ) Study Comment : Sex / Age : F / 61Y Creator : Shade Sullivan Dictator : Shade Sullivan Data Administrator : Photographic Intelligence Officer : Shade Sullivan Approver2 : Report Date : 03/15/2017 19:08:34 My Comment : PROCEDURE: CT Abdomen and Pelvis without intravenous contrast HISTORY: worsening left lower back pain, colitis, abscess? COMPARISON: None. TECHNIQUE: Axial and reformatted coronal and sagittal CT images of the abdomen and pelvis where obtained without IV contrast administration. Oral contrast was given.. Contrast Dose: 0 Radiation dose: Total exam DLP = 195.66 mGy-cm. This CT exam was performed using one or more of the following dose reduction techniques: Automated exposure control, adjustment of the mA and/or kV according to patient size, and/or use of iterative reconstruction technique. FINDINGS: LOWER THORAX: No evidence of acute pathology at the lung bases. LIVER: Hepatomegaly is again noted. No evidence of mass lesion in the liver in this noncontrast exam. GALLBLADDER AND BILE DUCTS: The gallbladder is mildly distended contains gallstones. No evidence of acute cholecystitis. PANCREAS: Unremarkable. No gross lesion or ductal dilatation. SPLEEN: Unremarkable. ADRENALS: Unremarkable. No mass. KIDNEYS AND URETERS: The kidneys are small in size consistent with end-stage renal disease. Transplanted kidney is again seen at the right pelvis. VASCULATURE: Diffuse vascular calcification in the abdomen and pelvis likely related to end- stage renal disease. . No aortic aneurysm. BOWEL: Again seen is long segment of market sigmoid colon wall thickening with retention of feces in the sigmoid colon. Findings have not significantly changed when compared to the previous exam. Moderate constipation in the ascending and transverse colon is again noted. No evidence of high-grade bowel obstruction. The assessment of the sigmoid colon is limited in this study. Scattered colonic diverticulosis are again seen. APPENDIX: The appendix is not visualized. There is no evidence of appendicitis. PERITONEUM: Unremarkable. No free fluid. No free air. LYMPH NODES: Unremarkable. No enlarged lymph nodes. BLADDER: Unremarkable. REPRODUCTIVE: Unremarkable. BONES: Diffuse osteopenia is again noted. Findings are also suspicious for renal osteodystrophy. There is moderate compression deformity at the superior endplate of L3 new compared to the previous exam. OTHER FINDINGS: None. IMPRESSION: No significant interval change when compared to the previous exam. Re- demonstration of significant sigmoid colon wall thickening which is moderately distended and contains moderate amount of feces. The possibility of distal large bowel obstruction or stricture should be excluded. The differential diagnosis includes colitis. New or worsening compression deformity at L3 vertebral body since the previous study. 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 pseudo diverticulum vs abscess as per CT report. clinically improving. afebrile Leukocytosis has resolved. Ct report noted. first stool c.diff- positive both AG and toxin second and thirs stool positive for antigen only , negative for toxin urine cx- e.coli NOT esbl blood cx- neg x 2 plan- continue with IV meropenem for esbl e.coli UTI day #9 of meropenem. advise total of 14 days of Iv abx. advise to continue with po metronidazole for positive c.diff colitis. day #[address] on probiotics while on Iv abx. check repeat UA and urine cx.
--- NOTE | 2017-03-18 14:01 | CP.PCM.PN ---
<Malinda Castillo - Last Filed: 03/18/17 16:14> Subjective - Date & Time of Evaluation Date of Evaluation: 03/18/17 Time of Evaluation: 07:00 - Subjective Subjective: Patient seen and examined today at bedside no overnight events, still has mild pain in LLQ and back although improved. States good appetite, slept well. Denies fever, nausea, vomiting, no diarrhea, no chest pain, edema, sob. No urinary symptoms. Normal BM yesterday. Objective - Vital Signs/Intake and Output Vital Signs (last 24 hours): Temp Pulse Resp BP Pulse Ox 97.9 F 92 H 18 107/25 L 98 03/18/17 12:00 03/18/17 12:00 03/18/17 12:00 03/18/17 12:00 03/18/17 12:00 Intake and Output: 03/18/17 03/18/17 06:59 18:59 Intake Total 300 Balance 300 - Medications Medications: Current Medications Acetaminophen (Tylenol 325mg Tab) 650 mg PO Q4H PRN PRN Reason: Temp >100 Amlodipine Besylate (Norvasc) 5 mg PO DAILY [facility] Last Admin: 03/18/17 10:15 Dose: 5 mg Bisacodyl (Dulcolax) 5 mg PO DAILY [facility] Cinacalcet (Sensipar) 30 mg PO DAILY [facility] Last Admin: 03/18/17 10:13 Dose: 30 mg Diphenhydramine HCl (Benadryl) 25 mg IVP Q6 PRN PRN Reason: Allergy symptoms Docusate Sodium (Colace) 100 mg PO BID [facility] Last Admin: 03/18/17 10:14 Dose: 100 mg Home Med (Tacrolimus [Prograf]) 5 mg PO BID [facility] Last Admin: 03/18/17 10:13 Dose: 5 mg Meropenem 1 gm/ Sodium (Chloride) 100 mls @ 100 mls/hr IVPB Q12 [facility] Last Admin: 03/18/17 10:16 Dose: 100 mls/hr Lidocaine (Lidoderm) 1 ea TD DAILY [facility] Last Admin: 03/18/17 10:15 Dose: 1 ea Metronidazole (Flagyl) 500 mg PO Q8 [facility] Last Admin: 03/18/17 10:14 Dose: 500 mg Mycophenolate Mofetil (Cellcept Cap) 250 mg PO BID [facility] Last Admin: 03/18/17 10:11 Dose: 250 mg Ondansetron HCl (Zofran Inj) 4 mg IVP Q4 PRN PRN Reason: Nausea/Vomiting Last Admin: 03/15/17 15:46 Dose: 4 mg Pantoprazole Sodium (Protonix Ec Tab) 40 mg PO DAILY [facility] Last Admin: 03/18/17 10:14 Dose: 40 mg Prednisone (Prednisone Tab) 5 mg PO DAILY [facility] Last Admin: 03/18/17 10:14 Dose: 5 mg Saccharomyces Boulardii (Florastor) 250 mg PO BID [facility] Last Admin: 03/18/17 10:13 Dose: 250 mg Sennosides (Senokot Tab) 17.2 mg PO HS [facility] Last Admin: 03/17/17 22:10 Dose: 17.2 mg Tramadol HCl (Ultram) 50 mg PO Q6 PRN PRN Reason: Pain, severe (8-10) Last Admin: 03/18/17 10:23 Dose: 50 mg - Labs Labs: 03/17/17 05:30 03/18/17 05:15 PT 12.5 Seconds (9.8-13.1) 03/10/17 13:10 INR 1.2 (0.9-1.2) 03/10/17 13:10 APTT 28.4 Seconds (25.6-37.1) 03/10/17 13:10 - Constitutional Appears: Well, No Acute Distress, Cachectic - Head Exam Head Exam: ATRAUMATIC, NORMOCEPHALIC - Eye Exam Eye Exam: EOMI, Normal appearance, PERRL - ENT Exam ENT Exam: Mucous Membranes Moist - Neck Exam Neck Exam: Full ROM. absent: Lymphadenopathy, Thyromegaly - Respiratory Exam Respiratory Exam: Clear to Ausculation Bilateral. absent: Rales, Rhonchi, Wheezes - Cardiovascular Exam Cardiovascular Exam: REGULAR RHYTHM, +S1, +S2. absent: Murmur - GI/Abdominal Exam GI & Abdominal Exam: Soft, Tenderness (LLQ on palpation, dull to percussion.), Normal Bowel Sounds. absent: Organomegaly - Extremities Exam Extremities Exam: Normal Inspection. absent: Calf Tenderness - Back Exam Back Exam: NORMAL INSPECTION Additional comments: tenderness over L lumbo sacral area on palpation - Neurological Exam Neurological Exam: Alert, Awake, CN II-XII Intact, Oriented x3 - Psychiatric Exam Psychiatric exam: Normal Mood - Skin Skin Exam: Dry, Pallor, Warm Assessment and Plan - Assessment and Plan (Free Text) Assessment: 61 year old female w/ PMH of renal transplant 11 years ago, DM, multiple admissions for diverticulitis presents w/ left lower abd/back pain. 1) Abdominal pain - 2' to Diverticulitis/colitis/bowel obstruction? - Liquid diet - WBC normal - c/w Meropenem 1gm Q12 day 9 (total 14 days) - Pain controlled with tramadol PRN for severe pain and lidocaine patch. - IV fluids - stool C. Diff antigen + - c/w Flagyl 500mg PO q8 - GI following, aware of new findings, consult appreciated. - Barium air/contrast ordered today recommended by IR 2) Compression fracture L3 level. -h/o fall 3 months ago -Neurosurgery consulted, spoke w/ Dr Rueda: fx still stable and does not require operative intervention. Wells brace to be worn when OOB. 3) Hypercalcemia. - Heme/onc consulted, following - Likely secondary to CKD - Continue w/ Cinacalet 30 mg PO daily - IV hydration 4) CKD - Nephro consult appreciated, Dr Glez recommends c/w current treatment. - Continue IV hydration 5) DM2 - Currently patient not on treatment - Last HBA1C on 12/18/16 was: 7.3 6) Chronic UTI - H/O ESBL - PT takes Bactrim DS M- W- for prophylaxis - c/w Meropenem 1gm Q12 day 8 (total 14 days) 7) Constipation -Docusate sodium 100 mg PO BID -Ducolax 5mg PO daily PRN -Senakot 17.2 PO HS 8) Prophylaxis GI: PPI and probiotics on board DVT Prophylaxis: SCD <Virginia Boyer - Last Filed: 03/19/17 08:17> Objective - Vital Signs/Intake and Output Vital Signs (last 24 hours): Temp Pulse Resp BP Pulse Ox 97.4 F L 94 H 18 95/43 L 99 03/19/17 07:50 03/19/17 07:50 03/19/17 07:50 03/19/17 07:50 03/19/17 07:50 Intake and Output: 03/19/17 03/19/17 06:59 18:59 Intake Total 805 Balance 805 - Medications Medications: Current Medications Acetaminophen (Tylenol 325mg Tab) 650 mg PO Q4H PRN PRN Reason: Temp >100 Amlodipine Besylate (Norvasc) 5 mg PO DAILY [facility] Last Admin: 03/18/17 10:15 Dose: 5 mg Bisacodyl (Dulcolax) 5 mg PO DAILY [facility] Last Admin: 03/18/17 16:59 Dose: 5 mg Cinacalcet (Sensipar) 30 mg PO DAILY [facility] Last Admin: 03/18/17 10:13 Dose: 30 mg Diphenhydramine HCl (Benadryl) 25 mg IVP Q6 PRN PRN Reason: Allergy symptoms Docusate Sodium (Colace) 100 mg PO BID [facility] Last Admin: 03/18/17 16:59 Dose: 100 mg Home Med (Tacrolimus [Prograf]) 5 mg PO BID [facility] Last Admin: 03/18/17 17:00 Dose: 5 mg Meropenem 1 gm/ Sodium (Chloride) 100 mls @ 100 mls/hr IVPB Q12 [facility] Last Admin: 03/18/17 22:00 Dose: 100 mls/hr Lidocaine (Lidoderm) 1 ea TD DAILY [facility] Last Admin: 03/18/17 10:15 Dose: 1 ea Metronidazole (Flagyl) 500 mg PO Q8 [facility] Last Admin: 03/19/17 00:39 Dose: 500 mg Mycophenolate Mofetil (Cellcept Cap) 250 mg PO BID [facility] Last Admin: 03/18/17 17:00 Dose: 250 mg Ondansetron HCl (Zofran Inj) 4 mg IVP Q4 PRN PRN Reason: Nausea/Vomiting Last Admin: 03/15/17 15:46 Dose: 4 mg Pantoprazole Sodium (Protonix Ec Tab) 40 mg PO DAILY [facility] Last Admin: 03/18/17 10:14 Dose: 40 mg Prednisone (Prednisone Tab) 5 mg PO DAILY [facility] Last Admin: 03/18/17 10:14 Dose: 5 mg Saccharomyces Boulardii (Florastor) 250 mg PO BID [facility] Last Admin: 03/18/17 17:00 Dose: 250 mg Sennosides (Senokot Tab) 17.2 mg PO HS [facility] Last Admin: 03/18/17 22:30 Dose: 17.2 mg - Labs Labs: 03/17/17 05:30 03/18/17 05:15 PT 12.5 Seconds (9.8-13.1) 03/10/17 13:10 INR 1.2 (0.9-1.2) 03/10/17 13:10 APTT 28.4 Seconds (25.6-37.1) 03/10/17 13:10 - Skin Additional comments: ADDENDUM ATTENDING NOTE PATIENT SEEN AND EXAMINED. CASE DISCUSSED WITH RESIDENT. AGREE WITH FINDINGS AND PLAN
[2017-03-18] MEDS: Bisacodyl 5mg EC Tab PO SCH ×2 (16:56→16:59)
--- NOTE | 2017-03-18 19:57 | CP.PCM.PN ---
Subjective - Date & Time of Evaluation Date of Evaluation: 03/18/17 Time of Evaluation: 16:00 - Subjective Subjective: SEEN ON RENAL F/U D/W ID STILL C/O MILD DIARRHEA .. 2 SOFT BM TODAY SO FAR FEELS MUCH BETTER Objective - Vital Signs/Intake and Output Vital Signs (last 24 hours): Temp Pulse Resp BP Pulse Ox 97.8 F 91 H 20 117/69 99 03/18/17 19:46 03/18/17 19:46 03/18/17 19:46 03/18/17 19:46 03/18/17 19:46 Intake and Output: 03/18/17 03/19/17 18:59 06:59 Intake Total 300 Balance 300 - Medications Medications: Current Medications Acetaminophen (Tylenol 325mg Tab) 650 mg PO Q4H PRN PRN Reason: Temp >100 Amlodipine Besylate (Norvasc) 5 mg PO DAILY [facility] Last Admin: 03/18/17 10:15 Dose: 5 mg Bisacodyl (Dulcolax) 5 mg PO DAILY [facility] Last Admin: 03/18/17 16:59 Dose: 5 mg Cinacalcet (Sensipar) 30 mg PO DAILY [facility] Last Admin: 03/18/17 10:13 Dose: 30 mg Diphenhydramine HCl (Benadryl) 25 mg IVP Q6 PRN PRN Reason: Allergy symptoms Docusate Sodium (Colace) 100 mg PO BID [facility] Last Admin: 03/18/17 16:59 Dose: 100 mg Home Med (Tacrolimus [Prograf]) 5 mg PO BID [facility] Last Admin: 03/18/17 17:00 Dose: 5 mg Meropenem 1 gm/ Sodium (Chloride) 100 mls @ 100 mls/hr IVPB Q12 [facility] Last Admin: 03/18/17 10:16 Dose: 100 mls/hr Lidocaine (Lidoderm) 1 ea TD DAILY [facility] Last Admin: 03/18/17 10:15 Dose: 1 ea Metronidazole (Flagyl) 500 mg PO Q8 [facility] Last Admin: 03/18/17 16:59 Dose: 500 mg Mycophenolate Mofetil (Cellcept Cap) 250 mg PO BID [facility] Last Admin: 03/18/17 17:00 Dose: 250 mg Ondansetron HCl (Zofran Inj) 4 mg IVP Q4 PRN PRN Reason: Nausea/Vomiting Last Admin: 03/15/17 15:46 Dose: 4 mg Pantoprazole Sodium (Protonix Ec Tab) 40 mg PO DAILY [facility] Last Admin: 03/18/17 10:14 Dose: 40 mg Prednisone (Prednisone Tab) 5 mg PO DAILY [facility] Last Admin: 03/18/17 10:14 Dose: 5 mg Saccharomyces Boulardii (Florastor) 250 mg PO BID [facility] Last Admin: 03/18/17 17:00 Dose: 250 mg Sennosides (Senokot Tab) 17.2 mg PO HS [facility] Last Admin: 03/17/17 22:10 Dose: 17.2 mg Tramadol HCl (Ultram) 50 mg PO Q6 PRN PRN Reason: Pain, severe (8-10) Last Admin: 03/18/17 10:23 Dose: 50 mg - Labs Labs: 03/17/17 05:30 03/18/17 05:15 PT 12.5 Seconds (9.8-13.1) 03/10/17 13:10 INR 1.2 (0.9-1.2) 03/10/17 13:10 APTT 28.4 Seconds (25.6-37.1) 03/10/17 13:10 Assessment and Plan - Assessment and Plan (Free Text) Assessment: S/P RENAL TRX .. RENAL FUNCTION STABLE LLQ ABDO PAIN / DIVERTICULITIS / COLITIS / C.DEF MULTIPLE CO MORBIDITIES P : C/O CURRENT CARE
[2017-03-19] MEDS: Saccharomyces Boulardi 250 mg Cap PO SCH ×2 (09:38→17:08)
[2017-03-19] MEDS: Bisacodyl 5mg EC Tab PO SCH (09:38)
[2017-03-19] MEDS: PROGRAF 5 MG PO SCH ×2 (09:39→17:08)
[2017-03-19] MEDS: Pantoprazole 40 mg EC Tab PO SCH (09:42)
[2017-03-19] MEDS: Lidocaine 5% Patch TD SCH (09:42)
--- NOTE | 2017-03-19 10:18 | CP.PCM.PN ---
Subjective - Date & Time of Evaluation Date of Evaluation: 03/18/17 Time of Evaluation: 12:00 - Subjective Subjective: feels better Objective - Vital Signs/Intake and Output Vital Signs (last 24 hours): Temp Pulse Resp BP Pulse Ox 97.4 F L 94 H 18 95/43 L 99 03/19/17 07:50 03/19/17 07:50 03/19/17 07:50 03/19/17 09:40 03/19/17 07:50 Intake and Output: 03/19/17 03/19/17 06:59 18:59 Intake Total 805 Balance 805 - Medications Medications: Current Medications Acetaminophen (Tylenol 325mg Tab) 650 mg PO Q4H PRN PRN Reason: Temp >100 Amlodipine Besylate (Norvasc) 5 mg PO DAILY [facility] Last Admin: 03/19/17 09:40 Dose: Not Given Bisacodyl (Dulcolax) 5 mg PO DAILY [facility] Last Admin: 03/19/17 09:38 Dose: 5 mg Cinacalcet (Sensipar) 30 mg PO DAILY [facility] Last Admin: 03/19/17 09:40 Dose: 30 mg Diphenhydramine HCl (Benadryl) 25 mg IVP Q6 PRN PRN Reason: Allergy symptoms Docusate Sodium (Colace) 100 mg PO BID [facility] Last Admin: 03/19/17 09:39 Dose: 100 mg Home Med (Tacrolimus [Prograf]) 5 mg PO BID [facility] Last Admin: 03/19/17 09:39 Dose: 5 mg Meropenem 1 gm/ Sodium (Chloride) 100 mls @ 100 mls/hr IVPB Q12 [facility] Last Admin: 03/18/17 22:00 Dose: 100 mls/hr Lidocaine (Lidoderm) 1 ea TD DAILY [facility] Last Admin: 03/19/17 09:42 Dose: 1 ea Metronidazole (Flagyl) 500 mg PO Q8 [facility] Last Admin: 03/19/17 09:38 Dose: 500 mg Mycophenolate Mofetil (Cellcept Cap) 250 mg PO BID [facility] Last Admin: 03/19/17 09:38 Dose: 250 mg Ondansetron HCl (Zofran Inj) 4 mg IVP Q4 PRN PRN Reason: Nausea/Vomiting Last Admin: 03/19/17 09:49 Dose: 4 mg Pantoprazole Sodium (Protonix Ec Tab) 40 mg PO DAILY [facility] Last Admin: 03/19/17 09:42 Dose: 40 mg Prednisone (Prednisone Tab) 5 mg PO DAILY [facility] Last Admin: 03/19/17 09:42 Dose: 5 mg Saccharomyces Boulardii (Florastor) 250 mg PO BID [facility] Last Admin: 03/19/17 09:38 Dose: 250 mg Sennosides (Senokot Tab) 17.2 mg PO HS [facility] Last Admin: 03/18/17 22:30 Dose: 17.2 mg - Labs Labs: 03/17/17 05:30 03/18/17 05:15 PT 12.5 Seconds (9.8-13.1) 03/10/17 13:10 INR 1.2 (0.9-1.2) 03/10/17 13:10 APTT 28.4 Seconds (25.6-37.1) 03/10/17 13:10 - Constitutional Appears: Well - Head Exam Head Exam: NORMOCEPHALIC - Eye Exam Eye Exam: Normal appearance - Neck Exam Neck Exam: Normal Inspection - Respiratory Exam Respiratory Exam: NORMAL BREATHING PATTERN - Cardiovascular Exam Cardiovascular Exam: REGULAR RHYTHM - GI/Abdominal Exam GI & Abdominal Exam: Soft, Normal Bowel Sounds Assessment and Plan - Assessment and Plan (Free Text) Assessment: 61 yo female with cdiff and diverticulitis abx for now colonoscopy in 3-8 weeks surgical input
--- NOTE | 2017-03-19 10:19 | CP.PCM.PN ---
Subjective - Date & Time of Evaluation Date of Evaluation: 03/19/17 Time of Evaluation: 10:20 - Subjective Subjective: doing well Objective - Vital Signs/Intake and Output Vital Signs (last 24 hours): Temp Pulse Resp BP Pulse Ox 97.4 F L 94 H 18 95/43 L 99 03/19/17 07:50 03/19/17 07:50 03/19/17 07:50 03/19/17 09:40 03/19/17 07:50 Intake and Output: 03/19/17 03/19/17 06:59 18:59 Intake Total 805 Balance 805 - Medications Medications: Current Medications Acetaminophen (Tylenol 325mg Tab) 650 mg PO Q4H PRN PRN Reason: Temp >100 Amlodipine Besylate (Norvasc) 5 mg PO DAILY [facility] Last Admin: 03/19/17 09:40 Dose: Not Given Bisacodyl (Dulcolax) 5 mg PO DAILY [facility] Last Admin: 03/19/17 09:38 Dose: 5 mg Cinacalcet (Sensipar) 30 mg PO DAILY [facility] Last Admin: 03/19/17 09:40 Dose: 30 mg Diphenhydramine HCl (Benadryl) 25 mg IVP Q6 PRN PRN Reason: Allergy symptoms Docusate Sodium (Colace) 100 mg PO BID [facility] Last Admin: 03/19/17 09:39 Dose: 100 mg Home Med (Tacrolimus [Prograf]) 5 mg PO BID [facility] Last Admin: 03/19/17 09:39 Dose: 5 mg Meropenem 1 gm/ Sodium (Chloride) 100 mls @ 100 mls/hr IVPB Q12 [facility] Last Admin: 03/18/17 22:00 Dose: 100 mls/hr Lidocaine (Lidoderm) 1 ea TD DAILY [facility] Last Admin: 03/19/17 09:42 Dose: 1 ea Metronidazole (Flagyl) 500 mg PO Q8 [facility] Last Admin: 03/19/17 09:38 Dose: 500 mg Mycophenolate Mofetil (Cellcept Cap) 250 mg PO BID [facility] Last Admin: 03/19/17 09:38 Dose: 250 mg Ondansetron HCl (Zofran Inj) 4 mg IVP Q4 PRN PRN Reason: Nausea/Vomiting Last Admin: 03/19/17 09:49 Dose: 4 mg Pantoprazole Sodium (Protonix Ec Tab) 40 mg PO DAILY [facility] Last Admin: 03/19/17 09:42 Dose: 40 mg Prednisone (Prednisone Tab) 5 mg PO DAILY [facility] Last Admin: 03/19/17 09:42 Dose: 5 mg Saccharomyces Boulardii (Florastor) 250 mg PO BID [facility] Last Admin: 03/19/17 09:38 Dose: 250 mg Sennosides (Senokot Tab) 17.2 mg PO HS [facility] Last Admin: 03/18/17 22:30 Dose: 17.2 mg - Labs Labs: 03/17/17 05:30 03/18/17 05:15 PT 12.5 Seconds (9.8-13.1) 03/10/17 13:10 INR 1.2 (0.9-1.2) 03/10/17 13:10 APTT 28.4 Seconds (25.6-37.1) 03/10/17 13:10 - Head Exam Head Exam: NORMOCEPHALIC - Eye Exam Eye Exam: Normal appearance - Neck Exam Neck Exam: Normal Inspection - Respiratory Exam Respiratory Exam: Clear to Ausculation Bilateral, NORMAL BREATHING PATTERN - Cardiovascular Exam Cardiovascular Exam: REGULAR RHYTHM - GI/Abdominal Exam GI & Abdominal Exam: Soft, Normal Bowel Sounds Assessment and Plan - Assessment and Plan (Free Text) Assessment: 61 yo female with cdiff and diverticulitis abx for now colonoscopy in 4-8 weeks surgical input
[2017-03-19] MEDS: Meropenem 1 GM in Sodium Chloride 0.9% 100 ML IVPB SCH (10:46)
[2017-03-19 11:23] LABS: CARCINOEMBRYONIC ANTIGEN < 0.3 ng/mL (0-3.0)
--- NOTE | 2017-03-19 14:25 | CP.PCM.PN ---
<Malinda Castillo - Last Filed: 03/19/17 14:19> Subjective - Date & Time of Evaluation Date of Evaluation: 03/19/17 Time of Evaluation: 06:40 - Subjective Subjective: Patient seen and examined this morning at bedside, no acute overnight events, still has pain in LLQ that improve with BM, also has pain on her back, states good appetite, slept well. Denies fever, nausea, vomiting, sob, no chest pain, palpitations, edema. No urinary symptoms. Had a normal BM this morning. Objective - Vital Signs/Intake and Output Vital Signs (last 24 hours): Temp Pulse Resp BP Pulse Ox 97.9 F 89 18 113/69 97 03/19/17 12:00 03/19/17 12:00 03/19/17 12:00 03/19/17 12:00 03/19/17 12:00 Intake and Output: 03/19/17 03/19/17 06:59 18:59 Intake Total 805 Balance 805 - Medications Medications: Current Medications Acetaminophen (Tylenol 325mg Tab) 650 mg PO Q4H PRN PRN Reason: Temp >100 Amlodipine Besylate (Norvasc) 5 mg PO DAILY [facility] Last Admin: 03/19/17 09:40 Dose: Not Given Bisacodyl (Dulcolax) 5 mg PO DAILY [facility] Last Admin: 03/19/17 09:38 Dose: 5 mg Cinacalcet (Sensipar) 30 mg PO DAILY [facility] Last Admin: 03/19/17 09:40 Dose: 30 mg Diphenhydramine HCl (Benadryl) 25 mg IVP Q6 PRN PRN Reason: Allergy symptoms Docusate Sodium (Colace) 100 mg PO BID [facility] Last Admin: 03/19/17 09:39 Dose: 100 mg Home Med (Tacrolimus [Prograf]) 5 mg PO BID [facility] Last Admin: 03/19/17 09:39 Dose: 5 mg Lidocaine (Lidoderm) 1 ea TD DAILY [facility] Last Admin: 03/19/17 09:42 Dose: 1 ea Metronidazole (Flagyl) 500 mg PO Q8 [facility] Last Admin: 03/19/17 09:38 Dose: 500 mg Mycophenolate Mofetil (Cellcept Cap) 250 mg PO BID [facility] Last Admin: 03/19/17 09:38 Dose: 250 mg Ondansetron HCl (Zofran Inj) 4 mg IVP Q4 PRN PRN Reason: Nausea/Vomiting Last Admin: 03/19/17 13:46 Dose: 4 mg Pantoprazole Sodium (Protonix Ec Tab) 40 mg PO DAILY [facility] Last Admin: 03/19/17 09:42 Dose: 40 mg Saccharomyces Boulardii (Florastor) 250 mg PO BID [facility] Last Admin: 03/19/17 09:38 Dose: 250 mg Sennosides (Senokot Tab) 17.2 mg PO HS [facility] Last Admin: 03/18/17 22:30 Dose: 17.2 mg - Labs Labs: 03/17/17 05:30 03/18/17 05:15 PT 12.5 Seconds (9.8-13.1) 03/10/17 13:10 INR 1.2 (0.9-1.2) 03/10/17 13:10 APTT 28.4 Seconds (25.6-37.1) 03/10/17 13:10 - Constitutional Appears: Well, No Acute Distress, Cachectic - Head Exam Head Exam: ATRAUMATIC, NORMOCEPHALIC - Eye Exam Eye Exam: EOMI, Normal appearance, PERRL - Respiratory Exam Respiratory Exam: Clear to Ausculation Bilateral, NORMAL BREATHING PATTERN. absent: Rales, Rhonchi, Wheezes - Cardiovascular Exam Cardiovascular Exam: REGULAR RHYTHM, +S1, +S2 - GI/Abdominal Exam GI & Abdominal Exam: Soft, Tenderness (on LLQ on palpation), Normal Bowel Sounds. absent: Organomegaly - Extremities Exam Extremities Exam: Full ROM. absent: Calf Tenderness - Back Exam Additional comments: Pain on palpation on L lumbosacral spine and sacroiliac area. - Neurological Exam Neurological Exam: Alert, Awake, CN II-XII Intact, Oriented x3 - Skin Skin Exam: Dry, Pallor, Warm Assessment and Plan - Assessment and Plan (Free Text) Assessment: 61 year old female w/ PMH of renal transplant 11 years ago, DM, multiple admissions for diverticulitis presents w/ left lower abd/back pain. 1) Abdominal pain - 2' to Diverticulitis/colitis/bowel obstruction? - Liquid diet - WBC normal - IV fluids - c/w Meropenem 1gm Q12 day 10 (total 14 days) - Pain controlled with tramadol PRN for severe pain and lidocaine patch. - stool C. Diff antigen + - c/w Flagyl 500mg PO q8 - GI on board Dr Medina recommends colonoscopy in 3-8 weeks, outpatient f/u. - ID consult appreciated Dr Yee recommends c/w current treatment. - CEA and Ca 19.9 ordered today. 2) Compression fracture L3 level. -h/o fall 3 months ago -Neurosurgery consult appreciated Dr Rueda. -Pending Wells brace. 3) Hypercalcemia. - Heme/onc consulted, following - Likely secondary to CKD - Continue w/ Cinacalet 30 mg PO daily - IV hydration 4) CKD - Nephro consult appreciated, Dr Glez recommends c/w current treatment. - Continue IV hydration 5) DM2 - Currently patient not on treatment - Last HBA1C on 12/18/16 was: 7.3 6) Chronic UTI - H/O ESBL - PT takes Bactrim DS M- W- F for prophylaxis - c/w Meropenem 1gm Q12 day 10 (total 14 days) - ID consult appreciated Dr Yee recommends UA and urine culture. 7) Constipation -Docusate sodium 100 mg PO BID -Ducolax 5mg PO daily PRN -Senakot 17.2 PO HS 8) Prophylaxis GI: PPI and probiotics DVT Prophylaxis: SCD <Virginia Boyer - Last Filed: 03/20/17 07:43> Objective - Vital Signs/Intake and Output Vital Signs (last 24 hours): Temp Pulse Resp BP Pulse Ox 97.4 F L 90 20 130/80 99 03/19/17 16:11 03/19/17 16:11 03/19/17 16:11 03/19/17 16:11 03/19/17 16:11 - Labs Labs: 03/17/17 05:30 03/18/17 05:15 PT 12.5 Seconds (9.8-13.1) 03/10/17 13:10 INR 1.2 (0.9-1.2) 03/10/17 13:10 APTT 28.4 Seconds (25.6-37.1) 03/10/17 13:10 - Skin Additional comments: ADDENDUM ATTENDING NOTE PATIENT SEEN AND EXAMINED. CHART REVIEWED. CASE DISCUSSED WITH RESIDENT. AGREE WITH FINDINGS AND PLAN.
[2017-03-19 16:12] VITALS: BP 130/80; PULSE 90; RESP 20; TEMP 97.4; O2SAT 99
--- NOTE | 2017-03-19 17:36 | CP.PCM.PN ---
Subjective - Date & Time of Evaluation Date of Evaluation: 03/19/17 Time of Evaluation: 15:00 - Subjective Subjective: SEEN ON RENAL F/U RENAL FUNCTION STABLE C/O CURRENT CARE Objective - Vital Signs/Intake and Output Vital Signs (last 24 hours): Temp Pulse Resp BP Pulse Ox 97.4 F L 90 20 130/80 99 03/19/17 16:11 03/19/17 16:11 03/19/17 16:11 03/19/17 16:11 03/19/17 16:11 Intake and Output: 03/19/17 03/19/17 06:59 18:59 Intake Total 805 Balance 805 - Medications Medications: Current Medications Acetaminophen (Tylenol 325mg Tab) 650 mg PO Q4H PRN PRN Reason: Temp >100 Amlodipine Besylate (Norvasc) 5 mg PO DAILY [facility] Last Admin: 03/19/17 09:40 Dose: Not Given Bisacodyl (Dulcolax) 5 mg PO DAILY [facility] Last Admin: 03/19/17 09:38 Dose: 5 mg Cinacalcet (Sensipar) 30 mg PO DAILY [facility] Last Admin: 03/19/17 09:40 Dose: 30 mg Diphenhydramine HCl (Benadryl) 25 mg IVP Q6 PRN PRN Reason: Allergy symptoms Docusate Sodium (Colace) 100 mg PO BID [facility] Last Admin: 03/19/17 17:09 Dose: Not Given Home Med (Tacrolimus [Prograf]) 5 mg PO BID [facility] Last Admin: 03/19/17 17:08 Dose: 5 mg Meropenem 1 gm/ Sodium (Chloride) 100 mls @ 100 mls/hr IVPB Q12 [facility] Lidocaine (Lidoderm) 1 ea TD DAILY [facility] Last Admin: 03/19/17 09:42 Dose: 1 ea Metronidazole (Flagyl) 500 mg PO Q8 [facility] Last Admin: 03/19/17 17:09 Dose: 500 mg Mycophenolate Mofetil (Cellcept Cap) 250 mg PO BID [facility] Last Admin: 03/19/17 17:08 Dose: 250 mg Ondansetron HCl (Zofran Inj) 4 mg IVP Q4 PRN PRN Reason: Nausea/Vomiting Last Admin: 03/19/17 17:12 Dose: 4 mg Pantoprazole Sodium (Protonix Ec Tab) 40 mg PO DAILY [facility] Last Admin: 03/19/17 09:42 Dose: 40 mg Prednisone (Prednisone Tab) 5 mg PO DAILY [facility] Saccharomyces Boulardii (Florastor) 250 mg PO BID [facility] Last Admin: 03/19/17 17:08 Dose: 250 mg Sennosides (Senokot Tab) 17.2 mg PO HS [facility] Last Admin: 03/18/17 22:30 Dose: 17.2 mg Tramadol HCl (Ultram) 50 mg PO Q6 PRN PRN Reason: Pain, severe (8-10) - Labs Labs: 03/17/17 05:30 03/18/17 05:15 PT 12.5 Seconds (9.8-13.1) 03/10/17 13:10 INR 1.2 (0.9-1.2) 03/10/17 13:10 APTT 28.4 Seconds (25.6-37.1) 03/10/17 13:10
[2017-03-19] MEDS ORDERED: Meropenem 1 GM in Sodium Chloride 0.9% 100 ML IVPB SCH (21:00)
--- NOTE | 2017-03-20 06:48 | CP.PCM.DIS ---
<Malinda Castillo - Last Filed: 03/20/17 17:00> Provider - Provider Date of Admission: 03/10/17 15:26 Attending physician: Bisi Lala MD Consults: ID: Dr Yee Nephro: Dr Glez GI: Dr Medina Neurosurgery: Dr Fajardo Surgery: [facility] Time Spent in preparation of Discharge (in minutes): 30 Diagnosis - Discharge Diagnosis (1) Acute diverticulitis Status: Acute (2) C. difficile colitis Status: Acute (3) Compression fracture of lumbar vertebra Status: Acute Hospital Course - Lab Results Lab Results: Micro Results 03/10/17 16:25 Urine Urine Culture - Final Escherichia Coli Most Recent Lab Values WBC 6.7 K/uL (4.8-10.8) 03/17/17 05:30 RBC 3.77 Mil/uL (3.80-5.20) L 03/17/17 05:30 Hgb 10.8 g/dL (12.0-16.0) L 03/17/17 05:30 Hct 33.8 % (34.0-47.0) L 03/17/17 05:30 MCV 89.7 fl (81.0-99.0) 03/17/17 05:30 MCH 28.8 pg (27.0-31.0) 03/17/17 05:30 MCHC 32.1 g/dL (33.0-37.0) L 03/17/17 05:30 RDW 15.5 % (11.5-14.5) H 03/17/17 05:30 Plt Count 248 K/uL (130-400) 03/17/17 05:30 MPV 7.5 fl (7.2-11.7) 03/12/17 05:05 Neut % (Auto) 71.9 % (50.0-75.0) 03/12/17 05:05 Lymph % (Auto) 19.3 % (20.0-40.0) L 03/12/17 05:05 Camp % (Auto) 8.0 % (0.0-10.0) 03/12/17 05:05 Eos % (Auto) 0.6 % (0.0-4.0) 03/12/17 05:05 Baso % (Auto) 0.2 % (0.0-2.0) 03/12/17 05:05 Neut # 6.2 K/uL (1.8-7.0) 03/12/17 05:05 Lymph # 1.7 K/uL (1.0-4.3) 03/12/17 05:05 Camp # 0.7 K/uL (0.0-0.8) 03/12/17 05:05 Eos # 0.1 K/uL (0.0-0.7) 03/12/17 05:05 Baso # 0.0 K/uL (0.0-0.2) 03/12/17 05:05 Neutrophils % (Manual) 76 % (42-75) H 03/10/17 13:10 Band Neutrophils % 7 % (0-2) H 03/10/17 13:10 Lymphocytes % (Manual) 6 % (20-50) L 03/10/17 13:10 Monocytes % (Manual) 11 % (0-10) H 03/10/17 13:10 Platelet Estimate Normal (NORMAL) 03/10/17 13:10 Anisocytosis (manual) Slight 03/10/17 13:10 PT 12.5 Seconds (9.8-13.1) 03/10/17 13:10 INR 1.2 (0.9-1.2) 03/10/17 13:10 APTT 28.4 Seconds (25.6-37.1) 03/10/17 13:10 pO2 39 mm/Hg (30-55) 03/10/17 14:20 VBG pH 7.40 (7.32-7.43) 03/10/17 14:20 VBG pCO2 37 mmHg (40-60) L 03/10/17 14:20 VBG HCO3 23.3 mmol/L 03/10/17 14:20 VBG Total CO2 24.0 mmol/L (22-28) 03/10/17 14:20 VBG O2 Sat (Calc) 83.4 % (40-65) H 03/10/17 14:20 VBG Base Excess -1.7 mmol/L (0.0-2.0) L 03/10/17 14:20 VBG Potassium 3.7 mmol/L (3.6-5.2) 03/10/17 14:20 A-a O2 Difference 64.0 mm/Hg 03/10/17 14:20 Sodium 138.0 mmol/L (132-148) 03/10/17 14:20 Chloride 113.0 mmol/L (98-107) H 03/10/17 14:20 Glucose 152 mg/dL (65-105) H 03/10/17 14:20 Lactate 0.8 mmol/L (0.7-2.1) 03/10/17 14:20 FiO2 21.0 % 03/10/17 14:20 Crit Value Called To Christin rivera 03/10/17 14:20 Crit Value Called By 5 03/10/17 14:20 Crit Value Read Back Y 03/10/17 14:20 Blood Gas Notified Time 1440 03/10/17 14:20 Sodium 133 mmol/l (132-148) 03/18/17 05:15 Potassium 4.6 MMOL/L (3.6-5.0) 03/18/17 05:15 Chloride 98 mmol/L (98-107) 03/18/17 05:15 Carbon Dioxide 26 mmol/L (22-30) 03/18/17 05:15 Anion Gap 14 (10-20) 03/18/17 05:15 BUN 21 mg/dl (7-17) H 03/18/17 05:15 Creatinine 1.2 mg/dL (0.7-1.2) 03/18/17 05:15 Est GFR ( Amer) 55 03/18/17 05:15 Est GFR (Non-Af Amer) 46 03/18/17 05:15 POC Glucose (mg/dL) 151 mg/dL (65-110) H 03/19/17 16:33 Random Glucose 85 mg/dL (65-105) 03/18/17 05:15 Hemoglobin A1c 5.5 % (4.2-6.5) 03/10/17 18:00 Calcium 11.7 mg/dL (8.4-10.2) H 03/18/17 05:15 Phosphorus 3.0 mg/dl (2.5-4.5) 03/11/17 05:20 Magnesium 1.2 MG/DL (1.6-2.3) L 03/11/17 05:20 Total Bilirubin 0.4 mg/dl (0.2-1.3) 03/10/17 13:10 AST 11 U/L (14-36) L 03/10/17 13:10 ALT 16 U/L (9-52) 03/10/17 13:10 Alkaline Phosphatase 94 U/L (38-126) 03/10/17 13:10 Troponin I < 0.0120 ng/mL (0.00-0.120) 03/10/17 23:32 Total Protein 6.6 G/DL (6.3-8.2) 03/10/17 13:10 Albumin 3.5 g/dL (3.5-5.0) D 03/10/17 13:10 Globulin 3.1 gm/dL (2.2-3.9) 03/10/17 13:10 Albumin/Globulin Ratio 1.1 (1.0-2.1) 03/10/17 13:10 Carcinoembryonic Ag < 0.3 ng/mL (0-3.0) 03/19/17 10:00 Venous Blood Potassium 3.7 mmol/L (3.6-5.2) 03/10/17 14:20 Urine Color Yellow (YELLOW) 03/10/17 16:11 Urine Clarity Slighty-cloudy (Clear) 03/10/17 16:11 Urine pH 5.0 (5.0-8.0) 03/10/17 16:11 Ur Specific Chase 1.014 (1.003-1.030) 03/10/17 16:11 Urine Protein Negative mg/dL (NEGATIVE) 03/10/17 16:11 Urine Glucose (UA) Neg mg/dL (Normal) 03/10/17 16:11 Urine Ketones Negative mg/dL (NEGATIVE) 03/10/17 16:11 Urine Blood Negative (NEGATIVE) 03/10/17 16:11 Urine Nitrate Positive (NEGATIVE) H 03/10/17 16:11 Urine Bilirubin Negative (NEGATIVE) 03/10/17 16:11 Urine Urobilinogen 0.2-1.0 mg/dL (0.2-1.0) 03/10/17 16:11 Ur Leukocyte Esterase Small Benigno/uL (Negative) 03/10/17 16:11 Urine RBC (Auto) 3 /hpf (0-3) 03/10/17 16:11 Urine Microscopic WBC 20 /hpf (0-5) H 03/10/17 16:11 Ur Squamous Epith Cells 4 /hpf (0-5) 03/10/17 16:11 Urine Bacteria Rare (<OCC) 03/10/17 16:11 Hyaline Casts 0-2 /hpf (0-2) 03/10/17 16:11 C. difficile Tox B Gene Detected (Not Detected) H 03/11/17 10:20 C. difficile Ag & Toxin Positive antigen (NEGATIVE) 03/14/17 21:51 Blood Type O POSITIVE 03/10/17 13:10 Antibody Screen Negative 03/10/17 13:10 BBK History Checked Patient has bt 03/10/17 13:10 - Hospital Course Hospital Course: 61 yo F w/ PMH of renal transplant 11 years ago, DM, recurrent diverticulitis was admitted with diverticulitis on 03/11/17. Complicated by findings of back pain due h/o fall [address] of abd and pelvis confirm compression fracture at L3 level. C diff positive on treatment with Flagyl as per ID for 14days. ID, GI, Nephrology and Neurosurgery followed the patient throughout admission. Neurosurgery recommends a brace for stable fracture. Diverticulitis improving will need outpatient care w/ possible colonoscopy. She was transferred to TCU to complete 14 days IV antibiotics and PT. Meds: tylenol 325 mg PO PRN Lidocaine patch 1 ea daily metronidazole 500 mg po Q8 meropenem 1 gm IV q12 pantoprazole 40 mg po daily senokot 17.2 mg po HS Amlodipine 5 mg po daily. tramadol 50 mg q4 prn prednisone 5 mg po daily. Discharge Exam - Head Exam Head Exam: ATRAUMATIC, NORMOCEPHALIC - Eye Exam Eye Exam: EOMI, Normal appearance, PERRL - Respiratory Exam Respiratory Exam: Clear to PA & Lateral. absent: Rales, Rhonchi, Wheezes - Cardiovascular Exam Cardiovascular Exam: RRR, +S1, +S2 - GI/Abdominal Exam GI & Abdominal Exam: Normal Bowel Sounds, Soft, Tenderness. absent: Organomegaly Additional comments: tenderness in LLQ. - Back Exam Additional comments: Pain in left sacroiliac area - Neurological Exam Neurological exam: Alert, CN II-XII Intact, Oriented x3, Reflexes Normal - Skin Skin Exam: Dry, Normal Color, Warm Discharge Plan - Follow Up Plan Condition: FAIR Disposition: TRANSF TO SNF Instructions: Urinary Tract Infection in Women (DC), Urinary Tract Infection in Men (DC), Ulcerative Colitis (DC), Ulcerative Colitis (GEN), Sepsis (DC), Sepsis (GEN), Dysuria (GEN) Additional Instructions: PMD appt: Dr. Jaleesa Luo, Mar 28 @ 2pm <Virginia Boyer - Last Filed: 03/22/17 09:26> Provider - Provider Date of Admission: 03/10/17 15:26 Attending physician: Bisi Lala MD Hospital Course - Lab Results Lab Results: Micro Results 03/10/17 16:25 Urine Urine Culture - Final Escherichia Coli Most Recent Lab Values WBC 6.7 K/uL (4.8-10.8) 03/17/17 05:30 RBC 3.77 Mil/uL (3.80-5.20) L 03/17/17 05:30 Hgb 10.8 g/dL (12.0-16.0) L 03/17/17 05:30 Hct 33.8 % (34.0-47.0) L 03/17/17 05:30 MCV 89.7 fl (81.0-99.0) 03/17/17 05:30 MCH 28.8 pg (27.0-31.0) 03/17/17 05:30 MCHC 32.1 g/dL (33.0-37.0) L 03/17/17 05:30 RDW 15.5 % (11.5-14.5) H 03/17/17 05:30 Plt Count 248 K/uL (130-400) 03/17/17 05:30 MPV 7.5 fl (7.2-11.7) 03/12/17 05:05 Neut % (Auto) 71.9 % (50.0-75.0) 03/12/17 05:05 Lymph % (Auto) 19.3 % (20.0-40.0) L 03/12/17 05:05 Camp % (Auto) 8.0 % (0.0-10.0) 03/12/17 05:05 Eos % (Auto) 0.6 % (0.0-4.0) 03/12/17 05:05 Baso % (Auto) 0.2 % (0.0-2.0) 03/12/17 05:05 Neut # 6.2 K/uL (1.8-7.0) 03/12/17 05:05 Lymph # 1.7 K/uL (1.0-4.3) 03/12/17 05:05 Camp # 0.7 K/uL (0.0-0.8) 03/12/17 05:05 Eos # 0.1 K/uL (0.0-0.7) 03/12/17 05:05 Baso # 0.0 K/uL (0.0-0.2) 03/12/17 05:05 Neutrophils % (Manual) 76 % (42-75) H 03/10/17 13:10 Band Neutrophils % 7 % (0-2) H 03/10/17 13:10 Lymphocytes % (Manual) 6 % (20-50) L 03/10/17 13:10 Monocytes % (Manual) 11 % (0-10) H 03/10/17 13:10 Platelet Estimate Normal (NORMAL) 03/10/17 13:10 Anisocytosis (manual) Slight 03/10/17 13:10 PT 12.5 Seconds (9.8-13.1) 03/10/17 13:10 INR 1.2 (0.9-1.2) 03/10/17 13:10 APTT 28.4 Seconds (25.6-37.1) 03/10/17 13:10 pO2 39 mm/Hg (30-55) 03/10/17 14:20 VBG pH 7.40 (7.32-7.43) 03/10/17 14:20 VBG pCO2 37 mmHg (40-60) L 03/10/17 14:20 VBG HCO3 23.3 mmol/L 03/10/17 14:20 VBG Total CO2 24.0 mmol/L (22-28) 03/10/17 14:20 VBG O2 Sat (Calc) 83.4 % (40-65) H 03/10/17 14:20 VBG Base Excess -1.7 mmol/L (0.0-2.0) L 03/10/17 14:20 VBG Potassium 3.7 mmol/L (3.6-5.2) 03/10/17 14:20 A-a O2 Difference 64.0 mm/Hg 03/10/17 14:20 Sodium 138.0 mmol/L (132-148) 03/10/17 14:20 Chloride 113.0 mmol/L (98-107) H 03/10/17 14:20 Glucose 152 mg/dL (65-105) H 03/10/17 14:20 Lactate 0.8 mmol/L (0.7-2.1) 03/10/17 14:20 FiO2 21.0 % 03/10/17 14:20 Crit Value Called To Christin rivera 03/10/17 14:20 Crit Value Called By 5 03/10/17 14:20 Crit Value Read Back Y 03/10/17 14:20 Blood Gas Notified Time 1440 03/10/17 14:20 Sodium 133 mmol/l (132-148) 03/18/17 05:15 Potassium 4.6 MMOL/L (3.6-5.0) 03/18/17 05:15 Chloride 98 mmol/L (98-107) 03/18/17 05:15 Carbon Dioxide 26 mmol/L (22-30) 03/18/17 05:15 Anion Gap 14 (10-20) 03/18/17 05:15 BUN 21 mg/dl (7-17) H 03/18/17 05:15 Creatinine 1.2 mg/dL (0.7-1.2) 03/18/17 05:15 Est GFR ( Amer) 55 03/18/17 05:15 Est GFR (Non-Af Amer) 46 03/18/17 05:15 POC Glucose (mg/dL) 151 mg/dL (65-110) H 03/19/17 16:33 Random Glucose 85 mg/dL (65-105) 03/18/17 05:15 Hemoglobin A1c 5.5 % (4.2-6.5) 03/10/17 18:00 Calcium 11.7 mg/dL (8.4-10.2) H 03/18/17 05:15 Phosphorus 3.0 mg/dl (2.5-4.5) 03/11/17 05:20 Magnesium 1.2 MG/DL (1.6-2.3) L 03/11/17 05:20 Total Bilirubin 0.4 mg/dl (0.2-1.3) 03/10/17 13:10 AST 11 U/L (14-36) L 03/10/17 13:10 ALT 16 U/L (9-52) 03/10/17 13:10 Alkaline Phosphatase 94 U/L (38-126) 03/10/17 13:10 Troponin I < 0.0120 ng/mL (0.00-0.120) 03/10/17 23:32 Total Protein 6.6 G/DL (6.3-8.2) 03/10/17 13:10 Albumin 3.5 g/dL (3.5-5.0) D 03/10/17 13:10 Globulin 3.1 gm/dL (2.2-3.9) 03/10/17 13:10 Albumin/Globulin Ratio 1.1 (1.0-2.1) 03/10/17 13:10 Carcinoembryonic Ag < 0.3 ng/mL (0-3.0) 03/19/17 10:00 CA 19-9 Antigen 29.1 U/mL (0-37) 03/19/17 10:00 Venous Blood Potassium 3.7 mmol/L (3.6-5.2) 03/10/17 14:20 Urine Color Yellow (YELLOW) 03/10/17 16:11 Urine Clarity Slighty-cloudy (Clear) 03/10/17 16:11 Urine pH 5.0 (5.0-8.0) 03/10/17 16:11 Ur Specific Chase 1.014 (1.003-1.030) 03/10/17 16:11 Urine Protein Negative mg/dL (NEGATIVE) 03/10/17 16:11 Urine Glucose (UA) Neg mg/dL (Normal) 03/10/17 16:11 Urine Ketones Negative mg/dL (NEGATIVE) 03/10/17 16:11 Urine Blood Negative (NEGATIVE) 03/10/17 16:11 Urine Nitrate Positive (NEGATIVE) H 03/10/17 16:11 Urine Bilirubin Negative (NEGATIVE) 03/10/17 16:11 Urine Urobilinogen 0.2-1.0 mg/dL (0.2-1.0) 03/10/17 16:11 Ur Leukocyte Esterase Small Benigno/uL (Negative) 03/10/17 16:11 Urine RBC (Auto) 3 /hpf (0-3) 03/10/17 16:11 Urine Microscopic WBC 20 /hpf (0-5) H 03/10/17 16:11 Ur Squamous Epith Cells 4 /hpf (0-5) 03/10/17 16:11 Urine Bacteria Rare (<OCC) 03/10/17 16:11 Hyaline Casts 0-2 /hpf (0-2) 03/10/17 16:11 C. difficile Tox B Gene Detected (Not Detected) H 03/11/17 10:20 C. difficile Ag & Toxin Positive antigen (NEGATIVE) 03/14/17 21:51 Blood Type O POSITIVE 03/10/17 13:10 Antibody Screen Negative 03/10/17 13:10 BBK History Checked Patient has bt 03/10/17 13:10 Discharge Exam - Skin Additional comments: ADDENDUM ATTENDING NOTE PATIEN SEEN AND EXAMINED. CASE DISCUSSED WITH RESIDENT. PATIENT TO BE DISCHARGED TO TCU. ANITICPATE DISCHARGE FROM TCU IN 3-4 DAYS. HAS APPOINTMENT IN [facility] 03/28/[address] LUO. I WILL BE IN THE CENTER THAT DAY WELL. PATIENT WILL NEED COLONSCOPY - POSSIBLE MASS/STRICTURE ON CT WELL HYPERCALCEMIA. HAS GI APPOINTMENT WITH DR SULTANA SCHEDULED WELL.
[2017-03-20 17:28] LABS: CA 19-9 29.1 U/mL (0-37)
== END 2017-03-19 18:10 | DRG 182 ==
LOC: H.ER 12:26 → H.ERHOLD 15:26 → H.TEL 19:22
PROVIDERS: ADMIT Family Medicine Geriatric Medicine; ATTEND Family Medicine Geriatric Medicine
DX: K57.20 Diverticulitis of large intestine with perforation and abscess without bleeding (principal); N39.0 Urinary tract infection, site not specified; E11.22 Type 2 diabetes mellitus with diabetic chronic kidney disease; A04.7 Enterocolitis due to Clostridium difficile; M48.56XA Collapsed vertebra, not elsewhere classified, lumbar region, initial encounter for fracture; Z94.0 Kidney transplant status; E83.52 Hypercalcemia; N18.9 Chronic kidney disease, unspecified; B96.20 Unspecified Escherichia coli [E. coli] as the cause of diseases classified elsewhere; D63.1 Anemia in chronic kidney disease; D50.9 Iron deficiency anemia, unspecified; I12.9 Hypertensive chronic kidney disease with stage 1 through stage 4 chronic kidney disease, or unspecified chronic kidney disease; E78.5 Hyperlipidemia, unspecified; K59.09 Other constipation; Z16.12 Extended spectrum beta lactamase (ESBL) resistance; Z87.440 Personal history of urinary (tract) infections; Z88.1 Allergy status to other antibiotic agents; Z91.041 Radiographic dye allergy status; Z91.81 History of falling

== ENCOUNTER 2017-03-19 16:13 | Inpatient (IN) | payer MEDICAID ==
[2017-03-19 18:03] VITALS: BMI 17.3
[2017-03-19 18:33] VITALS: RESP 20
[2017-03-19] MEDS ORDERED: DiphenhydrAMINE 50 mg/ml Inj IVP PRN (20:45)
--- NOTE | 2017-03-20 06:49 | CP.PCM.HP ---
<CastilloMalinda - Last Filed: 03/20/17 16:14> History of Present Illness - History of Present Illness History of Present Illness: 61 yo F w/ PMH of renal transplant 11 years ago, DM, multiple admissions for diverticulitis admitted w/ recurrent diverticulitis. Patient also has a chronic history of lower back pain which has been occurring for some time and states it has been getting worse, h/o falls 3 months. Was seen by surgery, ID and GI, at this time she is medically treated not being a candidate for surgical intervention. As per patients son, the patient lost almost 60 pounds within the last year. Today patient refers feeling well, still has mild pain in LLQ and back, states good appetite. Reports 2 episodes of NB diarrhea yesterday large amount. Denies fever, nausea, vomiting, constipation, no CP, sob. No urinary symptoms. PMH: Anemia, CKD ( formally on HD but not after receiving Right kidney transplant in 2004), HTN, DM2, HLD, , HX of falls, Diverticulitis, Recurrent UTI. PSH: Bilateral Upper arm AV fistulas, , Right kidney transplant ( Received HD for 4 to 5 years) Allergies: Cefazolin, Iodine, Vancomycin which causes pruritus. 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 Past Patient History - Infectious Disease Hx of Infectious Diseases: C.diff - Past Medical History & Family History Past Medical History?: Yes - Past Social History Smoking Status: Never Smoked - CARDIAC Hx Hypercholesterolemia: Yes Hx Hypertension: Yes - PULMONARY Hx Respiratory Disorders: No - NEUROLOGICAL Hx Neurological Disorder: No - HEENT Hx HEENT Problems: No - RENAL Hx Chronic Kidney Disease: Yes (kidney transplant) - ENDOCRINE/METABOLIC Hx Endocrine Disorders: Yes Hx Diabetes Mellitus Type 2: Yes - HEMATOLOGICAL/ONCOLOGICAL Hx Anemia: Yes - INTEGUMENTARY Hx Dermatological Problems: No - MUSCULOSKELETAL/RHEUMATOLOGICAL Hx Falls: Yes - GASTROINTESTINAL Hx Gastrointestinal Disorders: Yes Hx Colitis: Yes Hx Diverticulitis: Yes - GENITOURINARY/GYNECOLOGICAL Hx Genitourinary Disorders: Yes (UTI) Hx Urinary Tract Infection: Yes Other/Comment: hx esbl urine - PSYCHIATRIC Hx Psychophysiologic Disorder: No Hx Substance Use: No - SURGICAL HISTORY Hx Surgeries: Yes Hx Arteriovenous Shunt: Yes Hx Section: Yes (x2) Hx Vascular Access Device: Yes Other/Comment: RIGHT KIDNEY TRANSPLANT - ANESTHESIA Hx Anesthesia: Yes Hx Anesthesia Reactions: No Hx Malignant Hyperthermia: No Meds Allergies/Adverse Reactions: Allergies Allergy/AdvReac Type Severity Reaction Status Date / Time cefazolin Allergy ITCHING Verified 03/19/17 18:00 iodine Allergy ITCHING Verified 03/19/17 18:00 vancomycin Allergy ITCHING Verified 03/19/17 18:00 Physical Exam - Constitutional Appears: Well, No Acute Distress, Cachectic - Head Exam Head Exam: ATRAUMATIC, NORMOCEPHALIC - Eye Exam Eye Exam: EOMI, Normal appearance, PERRL - ENT Exam ENT Exam: Mucous Membranes Moist - Neck Exam Neck exam: Positive for: Full Rom. Negative for: Lymphadenopathy - Respiratory Exam Respiratory Exam: Clear to Auscultation Bilateral, NORMAL BREATHING PATTERN. absent: Rales, Rhonchi, Wheezes - Cardiovascular Exam Cardiovascular Exam: RRR, +S1, +S2 - GI/Abdominal Exam GI & Abdominal Exam: Normal Bowel Sounds, Soft. absent: Organomegaly Additional comments: Tender to palpation on LLQ, dull to percussion - Extremities Exam Extremities exam: Negative for: calf tenderness - Back Exam Additional comments: Sacroiliac area tender to palpation - Neurological Exam Neurological exam: Alert, CN II-XII Intact, Oriented x3 - Skin Skin Exam: Dry, Pallor, Warm Results - Vital Signs Recent Vital Signs: Last Vital Signs Temp 98.6 F 03/19/17 21:33 Pulse 91 H 03/19/17 21:33 Resp 20 03/19/17 21:33 BP 134/78 03/19/17 21:33 Pulse Ox 100 03/19/17 21:33 - Labs Labs: Laboratory Results - last 24 hr 03/19/17 03/20/17 20:47 05:39 POC Glucose (mg/dL) 233 H 73 Assessment & Plan - Assessment and Plan (Free Text) Assessment: 61 year old female w/ PMH of renal transplant 11 years ago, DM, multiple admissions for diverticulitis presents w/ left lower abd/back pain. Patient is waiting for brace. 1) Abdominal pain - 2' to Diverticulitis/colitis/bowel obstruction? - c/w Meropenem 1gm Q12 day 11 (total 14 days) - c/w Flagyl 500mg PO q8 Day 9 - Pain controlled with tramadol PRN for severe pain and lidocaine patch. - stool C. Diff antigen + - GI on board Dr Medina recommends colonoscopy in 3-8 weeks, outpatient f/u. - ID consult appreciated Dr Yee recommends c/w current treatment. - CEA wnl - Ca 19.9 pending. 2) Compression fracture L3 level. -h/o fall 3 months ago -Neurosurgery consult appreciated Dr Rueda. -Pending Wells brace. 3) Hypercalcemia. - Heme/onc consulted, following - Likely secondary to CKD - Continue w/ Cinacalet 30 mg PO daily - IV hydration 4) CKD - Nephro consult appreciated, Dr Glez recommends c/w current treatment. 5) DM2 Resolved - Last HBA1C on 03/10/2017 was: 5.5 6) Chronic UTI - H/O ESBL - PT takes Bactrim DS M- W- for prophylaxis,however multiple urine cultures show resistance to bactrim, will discuss with ID - c/w Meropenem 1gm Q12 day 11 (total 14 days) 7) Constipation -Docusate sodium 100 mg PO BID -d/c Ducolax 5mg PO daily PRN -Senakot 17.2 PO HS 8) Prophylaxis GI: PPI and probiotics DVT Prophylaxis: SCD <Virginia Boyer - Last Filed: 03/22/17 09:10> Physical Exam - Skin Additional comments: ADDENDUM ATTENDING NOTE PATIENT SEEN AND EXAMINED. CASE DISCUSSED WITH RESIDENT. AGREE WITH FINDINGS AND PLAN. Results - Vital Signs Recent Vital Signs: Last Vital Signs Temp 98.2 F 03/21/17 20:15 Pulse 82 03/22/17 08:51 Resp 20 03/21/17 20:15 BP 140/54 L 03/22/17 08:51 Pulse Ox 98 03/21/17 20:15 - Labs Labs: Laboratory Results - last 24 hr 03/21/17 03/21/17 03/21/17 10:50 16:49 20:37 POC Glucose (mg/dL) 194 H 252 H 200 H 03/22/17 06:08 POC Glucose (mg/dL) 93
[2017-03-20] MEDS ORDERED: Bisacodyl 5mg EC Tab PO SCH (09:00)
[2017-03-20] MEDS: Saccharomyces Boulardi 250 mg Cap PO SCH ×2 (09:29→17:38)
[2017-03-20] MEDS: Pantoprazole 40 mg EC Tab PO SCH (09:30)
[2017-03-20] MEDS: Meropenem 1 GM in Sodium Chloride 0.9% 100 ML IVPB SCH ×3 (09:30→20:29)
[2017-03-20] MEDS: Lidocaine 5% Patch TD SCH (09:30)
[2017-03-20] MEDS: TACROLIMUS 5 MG PO SCH ×2 (09:32→17:39)
[2017-03-20] MEDS ORDERED: Tmp-Smz 800 mg-160 mg DS Tab PO SCH (20:45)
[2017-03-21] MEDS: TACROLIMUS 5 MG PO SCH ×2 (09:27→18:26)
[2017-03-21] MEDS: Saccharomyces Boulardi 250 mg Cap PO SCH ×2 (09:28→18:26)
[2017-03-21] MEDS: Lidocaine 5% Patch TD SCH (09:29)
[2017-03-21] MEDS: Meropenem 1 GM in Sodium Chloride 0.9% 100 ML IVPB SCH ×2 (09:29→21:10)
[2017-03-21] MEDS: Pantoprazole 40 mg EC Tab PO SCH (09:30)
--- NOTE | 2017-03-21 10:11 | CP.PCM.PN ---
Subjective - Date & Time of Evaluation Date of Evaluation: 03/21/17 Time of Evaluation: 07:00 - Subjective Subjective: Patient seen and examined today at bedside, she is pleasant, no overnight events. Reports still has mild pain in LLQ. She is using the brace for her lumbar compression fracture since yesterday she feels comfortable. States had 2 soft BM yesterday w/o blood or mucus. States good appetite. No fever, nausea, vomiting, no CP, sob, palpitations. Objective - Vital Signs/Intake and Output Vital Signs (last 24 hours): Temp Pulse Resp BP Pulse Ox 98.1 F 88 20 119/70 98 03/21/17 08:20 03/21/17 09:28 03/21/17 08:20 03/21/17 09:28 03/21/17 08:20 - Medications Medications: Current Medications Acetaminophen (Tylenol 325mg Tab) 650 mg PO Q4H PRN PRN Reason: Temp >100 Amlodipine Besylate (Norvasc) 5 mg PO DAILY [facility] Last Admin: 03/21/17 09:28 Dose: 5 mg Cinacalcet (Sensipar) 30 mg PO DAILY [facility] Last Admin: 03/21/17 09:31 Dose: 30 mg Diphenhydramine HCl (Benadryl) 25 mg IVP Q6 PRN PRN Reason: Allergy symptoms Home Med (Tacrolimus [Prograf]) 5 mg PO BID [facility] Last Admin: 03/21/17 09:27 Dose: 5 mg Meropenem 1 gm/ Sodium (Chloride) 100 mls @ 100 mls/hr IVPB Q12 [facility] Last Admin: 03/21/17 09:29 Dose: 100 mls/hr Lidocaine (Lidoderm) 1 ea TD DAILY [facility] Last Admin: 03/21/17 09:29 Dose: 1 ea Metronidazole (Flagyl) 500 mg PO Q8 [facility] Last Admin: 03/21/17 09:28 Dose: 500 mg Mycophenolate Mofetil (Cellcept Cap) 250 mg PO BID [facility] Last Admin: 03/21/17 09:27 Dose: 250 mg Ondansetron HCl (Zofran Inj) 4 mg IVP Q4 PRN PRN Reason: Nausea/Vomiting Pantoprazole Sodium (Protonix Ec Tab) 40 mg PO DAILY [facility] Last Admin: 03/21/17 09:30 Dose: 40 mg Prednisone (Prednisone Tab) 5 mg PO DAILY [facility] Last Admin: 03/21/17 09:30 Dose: 5 mg Saccharomyces Boulardii (Florastor) 250 mg PO BID [facility] Last Admin: 03/21/17 09:28 Dose: 250 mg Sennosides (Senokot Tab) 17.2 mg PO HS [facility] Last Admin: 03/20/17 22:07 Dose: Not Given Tramadol HCl (Ultram) 50 mg PO Q4 PRN PRN Reason: Pain, moderate (4-7) - Constitutional Appears: Well, No Acute Distress, Cachectic - Head Exam Head Exam: ATRAUMATIC, NORMOCEPHALIC - Eye Exam Eye Exam: EOMI, Normal appearance, PERRL - Neck Exam Neck Exam: Full ROM - Respiratory Exam Respiratory Exam: Clear to Ausculation Bilateral. absent: Rales, Rhonchi, Wheezes - Cardiovascular Exam Cardiovascular Exam: REGULAR RHYTHM, +S1, +S2 - GI/Abdominal Exam GI & Abdominal Exam: Soft, Tenderness (LLQ on palpation, dull to percussion.), Normal Bowel Sounds - Back Exam Back Exam: NORMAL INSPECTION (mild tender to L lumbar area.) - Neurological Exam Neurological Exam: Alert, Awake, CN II-XII Intact, Oriented x3 Assessment and Plan - Assessment and Plan (Free Text) Assessment: 61 year old female w/ PMH of renal transplant 11 years ago, DM, multiple admissions for diverticulitis presents w/ left lower abd/back pain. Wells brace received yesterday, patient feels comfortable OOB. DM controlled with diet last HbA1C 5.5 03/10/2017. 1) Abdominal pain - 2' to Diverticulitis/colitis/bowel obstruction? - c/w Meropenem 1gm Q12 day 12 (total 14 days) - c/w Flagyl 500mg PO q8 Day 10 - Pain controlled with tramadol PRN for severe pain and lidocaine patch. - stool C. Diff antigen + - GI on board Dr Medina recommends colonoscopy in 3-8 weeks, outpatient f/u. - ID consult appreciated Dr Yee recommends c/w current treatment. - CEA wnl - CA 19.9 wnl 2) Compression fracture L3 level. -h/o fall 3 months ago -Patient uses Wells brace, feels comfortable. 3) Hypercalcemia. - Heme/onc consulted, following - Likely secondary to CKD - Continue w/ Cinacalet 30 mg PO daily - IV hydration 4) CKD - Nephro consult appreciated, Dr Glez recommends c/w current treatment. 5) Chronic UTI - H/O ESBL - d/c home with Bactrim DS - - for prophylaxis. - c/w Meropenem 1gm Q12 day 12 (total 14 days) 6) Constipation -Docusate sodium 100 mg PO BID -Senakot 17.2 PO HS 7) Prophylaxis GI: PPI and probiotics DVT Prophylaxis: SCD
--- NOTE | 2017-03-22 07:45 | CP.PCM.PN ---
Subjective - Date & Time of Evaluation Date of Evaluation: 03/22/17 Time of Evaluation: 09:05 - Subjective Subjective: 61 y/o F seen and examine by bedside. Pt resting comfortable on bed. Pt states LLQ pain is improving. Pt tolerating PO, good appetite and reports normal soft bowel movements. Pt denies fever, nausea, vomiting, CP, SOB, palpitations. Objective - Vital Signs/Intake and Output Vital Signs (last 24 hours): Temp Pulse Resp BP Pulse Ox 98.2 F 97 H 20 127/69 98 03/21/17 20:15 03/21/17 20:15 03/21/17 20:15 03/21/17 20:15 03/21/17 20:15 - Medications Medications: Current Medications Acetaminophen (Tylenol 325mg Tab) 650 mg PO Q4H PRN PRN Reason: Temp >100 Amlodipine Besylate (Norvasc) 5 mg PO DAILY [facility] Last Admin: 03/21/17 09:28 Dose: 5 mg Cinacalcet (Sensipar) 30 mg PO DAILY [facility] Last Admin: 03/21/17 09:31 Dose: 30 mg Diphenhydramine HCl (Benadryl) 25 mg IVP Q6 PRN PRN Reason: Allergy symptoms Home Med (Tacrolimus [Prograf]) 5 mg PO BID [facility] Last Admin: 03/21/17 18:26 Dose: 5 mg Meropenem 1 gm/ Sodium (Chloride) 100 mls @ 100 mls/hr IVPB Q12 [facility] Last Admin: 03/21/17 21:10 Dose: 100 mls/hr Lidocaine (Lidoderm) 1 ea TD DAILY [facility] Last Admin: 03/21/17 09:29 Dose: 1 ea Metronidazole (Flagyl) 500 mg PO Q8 [facility] Last Admin: 03/22/17 00:24 Dose: 500 mg Mycophenolate Mofetil (Cellcept Cap) 250 mg PO BID [facility] Last Admin: 03/21/17 18:27 Dose: 250 mg Ondansetron HCl (Zofran Inj) 4 mg IVP Q4 PRN PRN Reason: Nausea/Vomiting Pantoprazole Sodium (Protonix Ec Tab) 40 mg PO DAILY [facility] Last Admin: 03/21/17 09:30 Dose: 40 mg Prednisone (Prednisone Tab) 5 mg PO DAILY [facility] Last Admin: 03/21/17 09:30 Dose: 5 mg Saccharomyces Boulardii (Florastor) 250 mg PO BID [facility] Last Admin: 03/21/17 18:26 Dose: 250 mg Sennosides (Senokot Tab) 17.2 mg PO HS [facility] Last Admin: 03/21/17 21:11 Dose: Not Given Tramadol HCl (Ultram) 50 mg PO Q4 PRN PRN Reason: Pain, moderate (4-7) - Constitutional Appears: Well, No Acute Distress - Head Exam Head Exam: NORMAL INSPECTION - Eye Exam Eye Exam: EOMI, Normal appearance - ENT Exam ENT Exam: Mucous Membranes Moist - Neck Exam Neck Exam: Full ROM, Normal Inspection - Respiratory Exam Respiratory Exam: Clear to Ausculation Bilateral, NORMAL BREATHING PATTERN - Cardiovascular Exam Cardiovascular Exam: REGULAR RHYTHM, RRR - GI/Abdominal Exam GI & Abdominal Exam: Soft, Tenderness, Normal Bowel Sounds. absent: Distended, Guarding Assessment and Plan - Assessment and Plan (Free Text) Assessment: 61 year old female w/ PMH of renal transplant 11 years ago, DM, multiple admissions for diverticulitis presents w/ left lower abd/back pain. Wells brace received yesterday, patient feels comfortable OOB. DM controlled with diet last HbA1C 5.5 03/10/2017. Plan: 1) Abdominal pain - Evaluating 2' to Diverticulitis/colitis/bowel obstruction. - c/w Meropenem 1gm Q12 day 13 (total 14 days) - c/w Flagyl 500mg PO q8 Day 11 - Pain controlled with tramadol PRN for severe pain and lidocaine patch. - stool C. Diff antigen + - GI on board Dr Medina recommends colonoscopy in 3-8 weeks, outpatient f/u. - ID consult appreciated Dr Yee recommends c/w current treatment. - CEA wnl - CA 19.9 wnl 2) Compression fracture L3 level. -h/o fall 3 months ago -Hx of chronic prednisone therapy. -Patient uses Wells brace, feels comfortable. 3) Hypercalcemia. - Heme/onc consulted, following - Likely secondary to CKD - Continue w/ Cinacalet 30 mg PO daily - IV hydration -F/U BMP. 4) CKD - Nephro consult appreciated, Dr Glez recommends c/w current treatment. -F/U BMP. 5) Chronic UTI - H/O ESBL - d/c home with Bactrim DS M- W- F for prophylaxis. - c/w Meropenem 1gm Q12 day 12 (total 14 days) 6) Constipation -Docusate sodium 100 mg PO BID -Senakot 17.2 PO HS 7) Prophylaxis GI: PPI and probiotics DVT Prophylaxis: SCD
[2017-03-22] MEDS: Lidocaine 5% Patch TD SCH (08:50)
[2017-03-22] MEDS: TACROLIMUS 5 MG PO SCH ×2 (08:50→17:03)
[2017-03-22] MEDS: Saccharomyces Boulardi 250 mg Cap PO SCH ×2 (08:51→17:03)
[2017-03-22] MEDS: Pantoprazole 40 mg EC Tab PO SCH (08:51)
[2017-03-22] MEDS: Meropenem 1 GM in Sodium Chloride 0.9% 100 ML IVPB SCH ×2 (09:09→21:21)
[2017-03-23 08:08] LABS: BLOOD UREA NITROGEN 24 mg/dl (7-17); CALCIUM 11.6 mg/dL (8.4-10.2); CARBON DIOXIDE 26 mmol/L (22-30); CHLORIDE 103 mmol/L (98-107); GFR AFRICAN-AMERICAN > 60; GLUCOSE,RANDOM 97 mg/dL (65-105); POTASSIUM 4.8 MMOL/L (3.6-5.0); SODIUM 136 mmol/l (132-148)
[2017-03-23] MEDS: Pantoprazole 40 mg EC Tab PO SCH (09:16)
[2017-03-23] MEDS: Saccharomyces Boulardi 250 mg Cap PO SCH ×2 (09:16→17:34)
[2017-03-23] MEDS: Lidocaine 5% Patch TD SCH (09:16)
[2017-03-23] MEDS: TACROLIMUS 5 MG PO SCH ×2 (09:17→17:35)
[2017-03-23] MEDS: Meropenem 1 GM in Sodium Chloride 0.9% 100 ML IVPB SCH ×2 (09:19→21:21)
[2017-03-23 15:51] LABS: HEMATOCRIT 30.9 % (34.0-47.0); MEAN CELL VOLUME 89.9 fl (81.0-99.0); MEAN CORPUSCULAR HEMOGLOBIN 28.4 pg (27.0-31.0); MEAN CORPUSCULAR HGB CONC 31.6 g/dL (33.0-37.0); RED CELL DISTRIBUTION WIDTH 15.3 % (11.5-14.5)
[2017-03-24] MEDS: TACROLIMUS 5 MG PO SCH ×2 (09:08→17:15)
[2017-03-24] MEDS: Pantoprazole 40 mg EC Tab PO SCH (09:08)
[2017-03-24] MEDS: Saccharomyces Boulardi 250 mg Cap PO SCH ×2 (09:08→17:15)
[2017-03-24] MEDS: Lidocaine 5% Patch TD SCH (09:09)
[2017-03-24] MEDS: Meropenem 1 GM in Sodium Chloride 0.9% 100 ML IVPB SCH ×2 (09:10→21:34)
[2017-03-25 07:38] LABS: HEMATOCRIT 30.7 % (34.0-47.0); MEAN CELL VOLUME 88.8 fl (81.0-99.0); MEAN CORPUSCULAR HEMOGLOBIN 29.1 pg (27.0-31.0); MEAN CORPUSCULAR HGB CONC 32.8 g/dL (33.0-37.0); RED CELL DISTRIBUTION WIDTH 15.4 % (11.5-14.5); WHITE BLOOD COUNT 6.9 K/uL (4.8-10.8)
--- NOTE | 2017-03-25 07:45 | CP.PCM.PN ---
Subjective - Date & Time of Evaluation Date of Evaluation: 03/25/17 Time of Evaluation: 07:30 - Subjective Subjective: 61 y/o F evaluated bedsie. Pt resting comfortable on bed. Pt reports feeling well, good appetite, able to eat but difficulties with some complex food such as pancakes and eggs which makes her bloated. Pt reports abdominal pain has improved remarkably, still present but mild. Pt denies fever, headache, CP, SOB , N/V, change in bowel movement. Objective - Vital Signs/Intake and Output Vital Signs (last 24 hours): Temp Pulse Resp BP Pulse Ox 98 F 87 20 123/70 98 03/24/17 22:33 03/24/17 22:33 03/24/17 22:33 03/24/17 22:33 03/24/17 22:33 - Medications Medications: Current Medications Acetaminophen (Tylenol 325mg Tab) 650 mg PO Q4H PRN PRN Reason: Temp >100 Amlodipine Besylate (Norvasc) 5 mg PO DAILY [facility] Last Admin: 03/24/17 09:09 Dose: 5 mg Cinacalcet (Sensipar) 30 mg PO DAILY [facility] Last Admin: 03/24/17 09:09 Dose: 30 mg Diphenhydramine HCl (Benadryl) 25 mg IVP Q6 PRN PRN Reason: Allergy symptoms Home Med (Tacrolimus [Prograf]) 5 mg PO BID [facility] Last Admin: 03/24/17 17:15 Dose: 5 mg Meropenem 1 gm/ Sodium (Chloride) 100 mls @ 100 mls/hr IVPB Q12 [facility] Last Admin: 03/24/17 21:34 Dose: 100 mls/hr Lidocaine (Lidoderm) 1 ea TD DAILY [facility] Last Admin: 03/24/17 09:09 Dose: 1 ea Metronidazole (Flagyl) 500 mg PO Q8 [facility] Last Admin: 03/25/17 00:13 Dose: 500 mg Mycophenolate Mofetil (Cellcept Cap) 250 mg PO BID [facility] Last Admin: 03/24/17 17:15 Dose: 250 mg Ondansetron HCl (Zofran Inj) 4 mg IVP Q4 PRN PRN Reason: Nausea/Vomiting Pantoprazole Sodium (Protonix Ec Tab) 40 mg PO DAILY [facility] Last Admin: 03/24/17 09:08 Dose: 40 mg Prednisone (Prednisone Tab) 5 mg PO DAILY [facility] Last Admin: 03/24/17 09:08 Dose: 5 mg Saccharomyces Boulardii (Florastor) 250 mg PO BID [facility] Last Admin: 03/24/17 17:15 Dose: 250 mg Sennosides (Senokot Tab) 17.2 mg PO HS [facility] Last Admin: 03/24/17 21:35 Dose: Not Given Tramadol HCl (Ultram) 50 mg PO Q4 PRN PRN Reason: Pain, moderate (4-7) - Labs Labs: 03/23/17 15:30 03/23/17 05:30 - Constitutional Appears: Well, Non-toxic, No Acute Distress - Head Exam Head Exam: ATRAUMATIC - Eye Exam Eye Exam: EOMI, PERRL - ENT Exam ENT Exam: Mucous Membranes Moist - Neck Exam Neck Exam: Full ROM - Respiratory Exam Respiratory Exam: Clear to Ausculation Bilateral, NORMAL BREATHING PATTERN - Cardiovascular Exam Cardiovascular Exam: REGULAR RHYTHM, +S1, +S2 - GI/Abdominal Exam GI & Abdominal Exam: Tenderness (mild tenderness on lower quadrants.), Normal Bowel Sounds Assessment and Plan - Assessment and Plan (Free Text) Assessment: 61 year old female w/ PMH of renal transplant 11 years ago, multiple diverticulitis episodes, DM, admitted for acute diverticulitis episode and treatment of C. difficile infection. Plan: 1) Abdominal pain - Evaluating 2' to Diverticulitis/colitis/bowel obstruction. - Pt completed 14 days course of Meropenem 1gm Q12 (total 14 days) - c/w Flagyl 500mg PO q8 - Day 13. Will finish tomorrow. - Pain controlled with tramadol PRN for severe pain and lidocaine patch. - GI on board. Appt set on Apr [address] Howard, for evaluation and colonoscopy as recommended by GI. - ID on board. - F/U pt symptoms. 2) Compression fracture L3 level. -h/o fall 3 months ago -Hx of chronic prednisone therapy. -Patient uses Wells brace, feels comfortable. 3) Hypercalcemia. - Heme/onc consulted, following - Likely secondary to CKD - Continue w/ Cinacalet 30 mg PO daily -F/U BMP 4) CKD - Nephro consult appreciated, Dr Glez recommends c/w current treatment. - F/U BMP. 5) Chronic UTI - H/O ESBL - d/c home with Bactrim DS M- W- for prophylaxis. 6) Constipation -Docusate sodium 100 mg PO BID -Senakot 17.2 PO HS 7) Prophylaxis GI: PPI and probiotics DVT Prophylaxis: SCD
[2017-03-25] MEDS: TACROLIMUS 5 MG PO SCH ×2 (08:46→17:19)
[2017-03-25] MEDS: Saccharomyces Boulardi 250 mg Cap PO SCH ×2 (08:46→17:19)
[2017-03-25] MEDS: Lidocaine 5% Patch TD SCH (08:46)
[2017-03-25] MEDS: Pantoprazole 40 mg EC Tab PO SCH (08:46)
[2017-03-25] MEDS: Meropenem 1 GM in Sodium Chloride 0.9% 100 ML IVPB SCH (13:02)
[2017-03-26 06:19] LABS: BLOOD UREA NITROGEN 21 mg/dl (7-17); CALCIUM 11.5 mg/dL (8.4-10.2); CARBON DIOXIDE 27 mmol/L (22-30); CHLORIDE 102 mmol/L (98-107); GFR AFRICAN-AMERICAN > 60; GLUCOSE,RANDOM 89 mg/dL (65-105); POTASSIUM 4.4 MMOL/L (3.6-5.0); SODIUM 136 mmol/l (132-148)
[2017-03-26] MEDS: TACROLIMUS 5 MG PO SCH ×2 (08:49→17:28)
[2017-03-26] MEDS: Saccharomyces Boulardi 250 mg Cap PO SCH ×2 (08:49→17:27)
[2017-03-26] MEDS: Lidocaine 5% Patch TD SCH (08:50)
[2017-03-26] MEDS: Pantoprazole 40 mg EC Tab PO SCH (08:50)
[2017-03-26 16:23] VITALS: O2SAT 99
[2017-03-27 08:08] VITALS: PULSE 74; TEMP 98
[2017-03-27] MEDS: TACROLIMUS 5 MG PO SCH ×2 (08:39→17:20)
[2017-03-27] MEDS: Saccharomyces Boulardi 250 mg Cap PO SCH ×2 (08:39→17:20)
[2017-03-27] MEDS: Pantoprazole 40 mg EC Tab PO SCH (08:39)
[2017-03-27 08:40] VITALS: BP 114/67
[2017-03-27] MEDS: Lidocaine 5% Patch TD SCH (08:40)
--- NOTE | 2017-03-27 18:44 | CP.PCM.DIS ---
Provider - Provider Date of Admission: 03/19/17 18:07 Attending physician: Bisi Lala MD Primary care physician: Kristofer Hercules at [facility]. Consults: none. Time Spent in preparation of Discharge (in minutes): 30 Hospital Course - Lab Results Lab Results: Most Recent Lab Values WBC 6.9 K/uL (4.8-10.8) 03/25/17 06:55 RBC 3.46 Mil/uL (3.80-5.20) L 03/25/17 06:55 Hgb 10.1 g/dL (12.0-16.0) L 03/25/17 06:55 Hct 30.7 % (34.0-47.0) L 03/25/17 06:55 MCV 88.8 fl (81.0-99.0) 03/25/17 06:55 MCH 29.1 pg (27.0-31.0) 03/25/17 06:55 MCHC 32.8 g/dL (33.0-37.0) L 03/25/17 06:55 RDW 15.4 % (11.5-14.5) H 03/25/17 06:55 Plt Count 207 K/uL (130-400) 03/25/17 06:55 Sodium 136 mmol/l (132-148) 03/26/17 05:30 Potassium 4.4 MMOL/L (3.6-5.0) 03/26/17 05:30 Chloride 102 mmol/L (98-107) 03/26/17 05:30 Carbon Dioxide 27 mmol/L (22-30) 03/26/17 05:30 Anion Gap 11 (10-20) 03/26/17 05:30 BUN 21 mg/dl (7-17) H 03/26/17 05:30 Creatinine 0.7 mg/dL (0.7-1.2) 03/26/17 05:30 Est GFR ( Amer) > 60 03/26/17 05:30 Est GFR (Non-Af Amer) > 60 03/26/17 05:30 POC Glucose (mg/dL) 111 mg/dL (65-110) H 03/27/17 10:58 Random Glucose 89 mg/dL (65-105) 03/26/17 05:30 Calcium 11.5 mg/dL (8.4-10.2) H 03/26/17 05:30 - Hospital Course Hospital Course: 61 y/o F with a PMHx of Renal transplant, HTN and DM admitted to TCU for completion of therapy of acute diverticulitis and C. Difficile infection. - Pt finished 14 days course of IV Meropenem 1gr Q 12H and 14 days course PO Metronidazole 500 mg Q 8H. Pt was discharged, stable, tolerating PO with NO abdominal pain. Prednisone 5mg and Norvasc 5mg were prescribed with No refills at discharge. Pt was instructed to follow up tomorrow at [facility] with PMD and on Apr [address] Howard, GI specialist. Pt cachectic, with Hx of rapid weight loss. - Date & Time of H&P Date of H&P: 03/20/17 Time of H&P: 16:14 Discharge Exam - Head Exam Head Exam: ATRAUMATIC - Eye Exam Eye Exam: EOMI, Normal appearance, PERRL - ENT Exam ENT Exam: Mucous Membranes Moist - Respiratory Exam Respiratory Exam: Clear to PA & Lateral, NORMAL BREATHING PATTERN - Cardiovascular Exam Cardiovascular Exam: REGULAR RHYTHM - GI/Abdominal Exam GI & Abdominal Exam: Normal Bowel Sounds, Unremarkable. absent: Distended, Firm , Guarding Discharge Plan - Follow Up Plan Condition: GOOD Disposition: HOME/ ROUTINE Instructions: Diverticulitis (DC), Diverticulitis Diet (DC), Fall Prevention ( DC), Ulcerative Colitis (DC), Ulcerative Colitis (GEN) Additional Instructions: Continue home medications as prescribed. F/U with PMD, Dr Lazcano at [facility] tomorrow and GI doctor on Apr 04. Reminder Cards provided. Home care precautions discussed with pt and family. Return to ER if severe abdominal pain reoccurs, blood in stools, fever, urinary difficulties or altered mental status.
== END 2017-03-27 17:00 | disposition home or self-care (01) | DRG 182 ==
LOC: H.TCU 18:07
PROVIDERS: ADMIT Family Medicine Geriatric Medicine; ATTEND Family Medicine Geriatric Medicine
PROC: F07Z9FZ Gait Training/Functional Ambulation Treatment using Assistive, Adaptive, Supportive or Protective Equipment (ICD-10-PCS; principal; 2017-03-19)
PROC: F07L6FZ Therapeutic Exercise Treatment of Musculoskeletal System - Lower Back / Lower Extremity using Assistive, Adaptive, Supportive or Protective Equipment (ICD-10-PCS; 2017-03-19)
PROC: F08Z4FZ Home Management Treatment using Assistive, Adaptive, Supportive or Protective Equipment (ICD-10-PCS; 2017-03-19)
PROC: F07K6FZ Therapeutic Exercise Treatment of Musculoskeletal System - Upper Back / Upper Extremity using Assistive, Adaptive, Supportive or Protective Equipment (ICD-10-PCS; 2017-03-19)
DX: K57.92 Diverticulitis of intestine, part unspecified, without perforation or abscess without bleeding (principal); A04.7 Enterocolitis due to Clostridium difficile; E11.22 Type 2 diabetes mellitus with diabetic chronic kidney disease; Z94.0 Kidney transplant status; N18.9 Chronic kidney disease, unspecified; N39.0 Urinary tract infection, site not specified; W19.XXXD Unspecified fall, subsequent encounter; Z88.1 Allergy status to other antibiotic agents; Z91.041 Radiographic dye allergy status; K59.00 Constipation, unspecified; E78.5 Hyperlipidemia, unspecified; E83.52 Hypercalcemia; I12.9 Hypertensive chronic kidney disease with stage 1 through stage 4 chronic kidney disease, or unspecified chronic kidney disease; G89.29 Other chronic pain; S32.030D Wedge compression fracture of third lumbar vertebra, subsequent encounter for fracture with routine healing

== ENCOUNTER 2017-04-06 15:33 | Inpatient (IN) | payer MEDICAID ==
--- NOTE | 2017-04-06 16:45 | ED PDOC ---
HPI: Abdomen Time Seen by Provider: 04/06/17 15:52 Chief Complaint (Nursing): GI Problem Chief Complaint (Provider): Abdominal Pain History Per: Patient Additional Complaint(s): Pleasant 61 YO F w/ PMH of renal transplant 11 years ago, DM, and multiple admissions for diverticulitis presents w/ left lower back pain radiating to the front x 2 weeks now. Pt states that she has been having nausea, no vomiting or diarrhea. Denies any constipation or diarrhea. Patient also has a chronic history of lower back pain which has been occurring for some time and states it has been getting worse, denies any falls or trauma to the area recently. On patients last admission on 03/10/17 she admitted for diverticulitis and seen by surgery and GI, at that time she was medically treated and was a candidate for surgical intervention. On discharge last time patient was advised to follow up to get a colonoscopy, but patient states she was too weak and was not able to go get it done. Since her previous admission to [facility], she was transferred for [place] for 3 weeks, in which she seemed to be getting better and gaining some weight and now has moved back with her daughter and seems to be getting weaker. As per patients son who was at bedside, the patient lost almost 60 pounds within the last year. PMH: Anemia, CKD ( formally on HD but not after receiving Right kidney transplant in 2004), HTN, DM2, HLD, , HX of falls, Diverticulitis, Recurrent UTI. PSH: Bilateral Upper arm AV fistulas, , Right kidney transplant ( Received HD for 4 to 5 years) Allergies: Cefazolin, Iodine, Vancomycin which causes pruritus. 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, Currently living at home with daughter, No tobacco, NO alcohol, NO illicit drug use Family Hx: Aunt (Asthma), Dad (Renal Failure), Brother x2 ( Healthy) Past Medical History Reviewed: Historical Data, Nursing Documentation, Vital Signs Vital Signs: Last Vital Signs Temp 99.9 F H 04/06/17 15:45 Pulse 88 04/06/17 18:25 Resp 16 04/06/17 18:25 BP 141/79 04/06/17 18:25 Pulse Ox 100 04/06/17 19:55 - Medical History PMH: Anemia, Diabetes, Diverticulitis, HTN, Hypercholesterolemia, Chronic Kidney Disease (kidney transplant) - Surgical History Surgical History: - Family History Family History: States: Unknown Family Hx - Living Arrangements Living Arrangements: Alf/Assist Lvng - Social History Current smoker - smoking cessation education provided: No Alcohol: None Drugs: Denies - Home Medications Home Medications: Ambulatory Orders Medication Instructions Recorded Tacrolimus [Prograf] 5 mg PO BID 01/18/17 amLODIPine [Norvasc] 5 mg PO DAILY 01/18/17 predniSONE [predniSONE Tab] 5 mg PO DAILY 01/18/17 Mycophenolate [Cellcept Cap] 250 mg PO BID 03/10/17 Cinacalcet [Sensipar] 30 mg PO DAILY 04/06/17 Sulfamethoxazole/Trimethoprim 1 tab PO DAILY 04/06/17 [Bactrim DS Tab] - Allergies Allergies/Adverse Reactions: Allergies Allergy/AdvReac Type Severity Reaction Status Date / Time cefazolin Allergy ITCHING Verified 03/19/17 18:00 iodine Allergy ITCHING Verified 03/19/17 18:00 vancomycin Allergy ITCHING Verified 03/19/17 18:00 Review of Systems ROS Statement: Except As Marked, All Systems Reviewed And Found Negative Gastrointestinal: Positive for: Abdominal Pain Physical Exam - Reviewed Nursing Documentation Reviewed: Yes Vital Signs Reviewed: Yes - Physical Exam Appears: Positive for: Well, Non-toxic, No Acute Distress Head Exam: Positive for: ATRAUMATIC, NORMAL INSPECTION, NORMOCEPHALIC Skin: Positive for: Normal Color, Warm, DRY Eye Exam: Positive for: EOMI, Normal appearance, PERRL ENT: Positive for: Normal ENT Inspection Neck: Positive for: Normal, Painless ROM Cardiovascular/Chest: Positive for: Regular Rate, Rhythm Respiratory: Positive for: CNT, Normal Breath Sounds Gastrointestinal/Abdominal: Positive for: Bowel Sounds, Soft, Tenderness (mild llq tendernss) Back: Positive for: Normal Inspection Extremity: Positive for: Normal ROM Neurologic/Psych: Positive for: Alert, Oriented - Laboratory Results Result Diagrams: 04/06/17 17:15 04/06/17 17:15 - ECG O2 Sat by Pulse Oximetry: 100 Medical Decision Making Medical Decision Making: IV access established and diagnostics ordered Pt declined analgesics at thgis time, medicate with Zofran for nausea. Pt started on PO contrast for CT scan CBC resulted, wbc 10.6 COMP with mildly elevated glucose and amylapse/lipase. Case endorsed to DIPAK Garcia at 20:00 pending diagnostic review and re-eval Disposition - Clinical Impression Clinical Impression: Abdominal pain - Patient ED Disposition Is Patient to be Admitted: Transfer of Care - Disposition Disposition: Transfer of Care Disposition Time: 20:00 Condition: STABLE Forms: [employer] [employer] ([place]) - POA Present On Arrival: None
[2017-04-06] MEDS ORDERED: Iohexol 240 (50 ml) PO ONE (16:47)
[2017-04-06] MEDS ORDERED: Iohexol 240 (50 ml) ONE (16:57)
[2017-04-06 17:36] LABS: BASO % 0.2 % (0.0-2.0); HEMATOCRIT 33.2 % (34.0-47.0); LYMPH # 1.4 K/uL (1.0-4.3); LYMPH % 12.8 % (20.0-40.0); MEAN CELL VOLUME 90.2 fl (81.0-99.0); MEAN CORPUSCULAR HEMOGLOBIN 28.9 pg (27.0-31.0); MEAN CORPUSCULAR HGB CONC 32.1 g/dL (33.0-37.0); MEAN PLATELET VOLUME 7.6 fl (7.2-11.7); MONO # 0.8 K/uL (0.0-0.8); MONO % 7.5 % (0.0-10.0); NEUT # 8.4 K/uL (1.8-7.0); NEUT % 79.5 % (50.0-75.0); RED CELL DISTRIBUTION WIDTH 15.8 % (11.5-14.5); WHITE BLOOD COUNT 10.6 K/uL (4.8-10.8)
[2017-04-06 17:48] LABS: ALB/GLOB RATIO 1.1 (1.0-2.1); ALKALINE PHOSPHATASE 81 U/L (38-126); ALT/SGPT 12 U/L (9-52); AMYLASE 122 U/L (30-110); AST/SGOT 13 U/L (14-36); BILIRUBIN,TOTAL 0.5 mg/dl (0.2-1.3); BLOOD UREA NITROGEN 14 mg/dl (7-17); CALCIUM 11.8 mg/dL (8.4-10.2); CARBON DIOXIDE 27 mmol/L (22-30); CHLORIDE 103 mmol/L (98-107); GFR AFRICAN-AMERICAN > 60; GLUCOSE,RANDOM 154 mg/dL (65-105); LIPASE 18 U/L (23-300); SODIUM 138 mmol/l (132-148); TOTAL PROTEIN 6.7 G/DL (6.3-8.2)
[2017-04-06 17:49] LABS: RBC URINE 2 /hpf (0-3); URINE BILIRUBIN NEGATIVE (NEGATIVE); URINE BLOOD NEGATIVE (NEGATIVE); URINE COLOR YELLOW (YELLOW); URINE GLUCOSE (UA) NEG (Normal); URINE KETONE NEGATIVE (NEGATIVE); URINE LEUKOCYTE ESTERASE NEG Leu/uL (Negative); URINE PROTEIN NEGATIVE (NEGATIVE); URINE UROBILINOGEN 0.2-1.0 mg/dL (0.2-1.0); WBC URINE 3 /hpf (0-5)
[2017-04-06 17:51] LABS: URINE CALCIUM OXALATE CRYSTALS FEW /hpf (<OCC)
[2017-04-06 20:01] LABS: VENOUS BLOOD GAS BASE EXCESS 8.8 mmol/L (0.0-2.0); VENOUS BLOOD GAS PCO2 45 mmHg (40-60); VENOUS BLOOD PH 7.48 (7.32-7.43)
--- NOTE | 2017-04-06 20:06 | ED PDOC ---
"- Laboratory Results Result Diagrams: 04/06/17 17:15 04/06/17 17:15 - ECG O2 Sat by Pulse Oximetry: 100 Pulse Ox Interpretation: Normal Medical Decision Making Medical Decision Making: Case was signed out to insurance underwriter sales from [facility] pending CT scan and final disposition. CT abd and pelvis with oral and IV contrast: FINDINGS: Limitations: Lack of intravenous contrast. Lower thorax: Minimal atelectasis/scarring. Coronary artery calcifications. ABDOMEN: Liver: Unremarkable. Gallbladder and bile ducts : Calcified gallstones. No ductal dilation. Pancreas: Unremarkable. No ductal dilation. Spleen: No splenomegaly. Adrenals: No mass. Kidneys and ureters: Atrophic [place] kidneys. Transplant kidney within RIGHT renal fossa. Few probable cysts within transplant kidney. No hydronephrosis. Stomach and bowel: Several diverticula within colon. Few giant diverticula within sigmoid colon with associated wall thickening and adjacent stranding. No obstruction. Appendix: Normal caliber. No inflammation. PELVIS: Bladder: Unremarkable. No stones. Reproductive: Unremarkable as visualized. ABDOMEN and PELVIS: Intraperitoneal space: No significant fluid collection. No free air. BARBARA PASCUAL | Final Radiology Report CONFIDENTIALITY STATEMENT This report is intended only for use by the referring physician, and only in accordance with law. If you received this in error, call [phone]. Page 2 of 2 Bones/joints: Mild subacute compression fractures L1, L3 vertebral bodies. Mild degenerative changes of spine. Soft tissues: Unremarkable. Vasculature: Extensive atherosclerotic disease. No aneurysm. Lymph nodes: No pathologically enlarged lymph nodes. IMPRESSION: 1. Giant sigmoid diverticula with associated inflammation. Surgical consultation is recommended. 2. Stranding about bladder. Correlate with urinalysis to exclude cystitis. 3. Incidental/non-acute findings are described above. Case was d/w family practice resident, patient will be admitted. IV cipro and flagyl started. Call placed to surgery production expediter, Dr. Carter who states to have surgery resident come see patient and call him in AM. [place] spoke with Dr. Diez, surgical first assistant, who will see patient. Disposition - Clinical Impression Clinical Impression: Abdominal pain, Diverticulitis - POA Present On Arrival: None - Disposition Disposition: Admitted as In-Patient Disposition Time: 00:51 Condition: FAIR Forms: [employer] ([place]) Results - Lab Results Lab Results: 04/06/17 04/06/17 04/06/17 19:58 17:15 17:15 WBC 10.6 D RBC 3.68 L Hgb 10.7 L Hct 33.2 L MCV 90.2 MCH 28.9 MCHC 32.1 L RDW 15.8 H Plt Count 241 MPV 7.6 Neut % (Auto) 79.5 H Lymph % (Auto) 12.8 L [place] % (Auto) 7.5 Eos % (Auto) 0.0 Baso % (Auto) 0.2 Neut # 8.4 H Lymph # 1.4 [place] # 0.8 Eos # 0.0 Baso # 0.0 pO2 34 VBG pH 7.48 H VBG pCO2 45 VBG HCO3 31.1 VBG Total CO2 34.9 H VBG O2 Sat (Calc) 75.0 H VBG Base Excess 8.8 H VBG Potassium 3.6 Glucose 119 H Lactate 0.7 FiO2 21.0 Sodium 138.0 138 Potassium 4.0 Chloride 104.0 103 Carbon Dioxide 27 Anion Gap 12 BUN 14 Creatinine 0.7 Est GFR ( Amer) > 60 Est GFR (Non-Af Amer) > 60 POC Glucose (mg/dL) Random Glucose 154 H Calcium 11.8 H Total Bilirubin 0.5 AST 13 L ALT 12 Alkaline Phosphatase 81 Troponin I < 0.0120 Total Protein 6.7 Albumin 3.5 Globulin 3.2 Albumin/Globulin Ratio 1.1 Amylase 122 H D Lipase 18 L Venous Blood Potassium 3.6 Urine Color Urine Clarity Urine pH Ur Specific [place] Urine Protein Urine Glucose (UA) Urine Ketones Urine Blood Urine Nitrate Urine Bilirubin Urine Urobilinogen Ur Leukocyte Esterase Urine RBC (Auto) Urine Microscopic WBC Ur Squamous Epith Cells Calcium Oxalate Crystal Hyaline Casts 04/06/17 04/06/17 15:47 05:18 WBC RBC Hgb Hct MCV MCH MCHC RDW Plt Count MPV Neut % (Auto) Lymph % (Auto) [place] % (Auto) Eos % (Auto) Baso % (Auto) Neut # Lymph # [place] # Eos # Baso # pO2 VBG pH VBG pCO2 VBG HCO3 VBG Total CO2 VBG O2 Sat (Calc) VBG Base Excess VBG Potassium Glucose Lactate FiO2 Sodium Potassium Chloride Carbon Dioxide Anion Gap BUN Creatinine Est GFR ( Amer) Est GFR (Non-Af Amer) POC Glucose (mg/dL) 187 H Random Glucose Calcium Total Bilirubin AST ALT Alkaline Phosphatase Troponin I Total Protein Albumin Globulin Albumin/Globulin Ratio Amylase Lipase Venous Blood Potassium Urine Color Yellow Urine Clarity Slighty-cloudy Urine pH 6.0 Ur Specific [place] 1.014 Urine Protein Negative Urine Glucose (UA) Neg Urine Ketones Negative Urine Blood Negative Urine Nitrate Negative Urine Bilirubin Negative Urine Urobilinogen 0.2-1.0 Ur Leukocyte Esterase Neg Urine RBC (Auto) 2 Urine Microscopic WBC 3 Ur Squamous Epith Cells 2 Calcium Oxalate Crystal Few H Hyaline Casts 0-2"
--- NOTE | 2017-04-06 23:12 | CT ---
EXAM: CT Abdomen and Pelvis Without Intravenous Contrast CLINICAL HISTORY: 61 years old, female; Pain; Abdominal pain; Generalized; Prior surgery; Surgery date: 6+ months; Surgery type: Kidney trasnplant. . Dm diverticulitis ckd. Anemia TECHNIQUE: Axial computed tomography images of the abdomen and pelvis without intravenous contrast. All CT scans at this facility use one or more dose reduction techniques, viz.: automated exposure control; ma/kV adjustment per patient size (including targeted exams where dose is matched to indication; i.e. head); or iterative reconstruction technique. Coronal and sagittal reformatted images were created and reviewed. COMPARISON: CT - ABD PELVIS PO CONTRAST ONLY 03/15/2017 6:10:22 PM FINDINGS: Limitations: Lack of intravenous contrast. Lower thorax: Minimal atelectasis/scarring. Coronary artery calcifications. ABDOMEN: Liver: Unremarkable. Gallbladder and bile ducts: Calcified gallstones. No ductal dilation. Pancreas: Unremarkable. No ductal dilation. Spleen: No splenomegaly. Adrenals: No mass. Kidneys and ureters: Atrophic [place] kidneys. Transplant kidney within RIGHT renal fossa. Few probable cysts within transplant kidney. No hydronephrosis. Stomach and bowel: Several diverticula within colon. Few giant diverticula within sigmoid colon with associated wall thickening and adjacent stranding. No obstruction. Appendix: Normal caliber. No inflammation. PELVIS: Bladder: Unremarkable. No stones. Reproductive: Unremarkable as visualized. ABDOMEN and PELVIS: Intraperitoneal space: No significant fluid collection. No free air. Bones/joints: Mild subacute compression fractures L1, L3 vertebral bodies. Mild degenerative changes of spine. Soft tissues: Unremarkable. Vasculature: Extensive atherosclerotic disease. No aneurysm. Lymph nodes: No pathologically enlarged lymph nodes. IMPRESSION: 1. Giant sigmoid diverticula with associated inflammation. Surgical consultation is recommended. 2. Stranding about bladder. Correlate with urinalysis to exclude cystitis. 3. Incidental/non-acute findings are described above.
[2017-04-07] MEDS ORDERED: Ciprofloxacin 400mg/200ml D5W 400 MG/200 ML BAG IVPB STA (00:20)
[2017-04-07] MEDS ORDERED: metroNIDAZOLE 500mg/100ml NS 100 ML IVPB STA (00:20)
[2017-04-07] MEDS ORDERED: Lidocaine 5% Patch TD ONE ×2 (01:08→01:28)
[2017-04-07] MEDS ORDERED: Ciprofloxacin 400mg/200ml D5W 400 MG/200 ML BAG IVPB ONE (01:27)
[2017-04-07] MEDS: Sodium Chloride 0.9% 1,000 ML IV SCH ×3 (01:57→19:06)
--- NOTE | 2017-04-07 01:59 | CP.PCM.HP ---
History of Present Illness - History of Present Illness History of Present Illness: 61 y/o female with CKD s/p Renal transplant 11 years ago, frequent UTIs with ESBL, DM type 2 in no current medications, Diverticulosis with frequent episodes of diverticulitis, admitted recently on 03/10/17 for diverticulitis, found to be C. Diff positive infection and UTI - E Coli no ESBL. patient was discharged on 03/27/17. She presents to ED c/o approximately 2 weeks of constant left lower quadrant abdominal pain, no radiating, intensity 02/28, associated with nausea x 2 weeks, and one episode of vomit yesterday on her way to the hospital. Patient denies subjective fevers, chills, diarrheas, blood in urine or stools, urinary symptoms. Patient states that her BM pattern is daily and regular, and last BM was yesterday and normal, however she has sometimes to strain during defecation. Patient was to undergo an outpatient colonoscopy for further assessment but states she had too much pain and felt too weak to have the scope. History obtained from patient and her Son. PMD: Dr. Jaleesa Miner at [facility] Nephro: Dr. Glez PMH: Anemia, CKD ( formally on HD but not after receiving Right kidney transplant in 2004), HTN, DM2, HLD, , HX of falls, Diverticulitis, Recurrent UTI. 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, Currently living at home with daughter, No tobacco, NO alcohol, NO illicit drug use Family Hx: Aunt (Asthma), Dad (Renal Failure), Brother x2 ( Healthy) ED course: VS: 99.9 F, HR: 100/min PE: Alert, awake, and oriented X 3 cv: RRR, normal S1, S2, no murmur resp: CTA bilateral abd: soft, no distended, tender to palpation of LLQ, no rebound tenderness noted , no guarding or rigidity, BS present, but decreased ext:no edema in LExt, no calves tenderness noted labs: CBc: H/H: 10.7/33.2, no leukocytosis CMP: significant for slightly elevated Ca, GFR wnl, BUN/Cr: WNL lipase: wnl, amylase: slightly elevated, but no specific Troponin I x 1 wnl UA: unremarkable abdomen CT: Giant sigmoid diverticula with associated inflammation, no significant fluid collection, no free air, no evidence of abscess, perforation or obstruction treatment at ED:zofran 4 mg IVP once, Cipro 400 mg IVP once, flagyl 500 mg IVP once Present on Admission - Present on Admission Any Indicators Present on Admission: No History of DVT/PE: No History of Uncontrolled Diabetes: No Urinary Catheter: No Decubitus Ulcer Present: No Past Patient History - Infectious Disease Hx of Infectious Diseases: C.diff - Past Medical History & Family History Past Medical History?: Yes - Past Social History Alcohol: None Drugs: Denies - CARDIAC Hx Hypercholesterolemia: Yes Hx Hypertension: Yes - PULMONARY Hx Respiratory Disorders: No - NEUROLOGICAL Hx Neurological Disorder: No - HEENT Hx HEENT Problems: No - RENAL Hx Chronic Kidney Disease: Yes (kidney transplant) - ENDOCRINE/METABOLIC Hx Diabetes Mellitus Type 2: Yes - HEMATOLOGICAL/ONCOLOGICAL Hx Anemia: Yes - INTEGUMENTARY Hx Dermatological Problems: No - MUSCULOSKELETAL/RHEUMATOLOGICAL Hx Falls: Yes - GASTROINTESTINAL Hx Diverticulitis: Yes - GENITOURINARY/GYNECOLOGICAL Other/Comment: hx esbl urine - PSYCHIATRIC Hx Psychophysiologic Disorder: No Hx Substance Use: No - SURGICAL HISTORY Hx Surgeries: Yes Hx Arteriovenous Shunt: Yes Hx Section: Yes (x2) Hx Vascular Access Device: Yes Other/Comment: RIGHT KIDNEY TRANSPLANT - ANESTHESIA Hx Anesthesia: Yes Hx Anesthesia Reactions: No Hx Malignant Hyperthermia: No Meds Allergies/Adverse Reactions: Allergies Allergy/AdvReac Type Severity Reaction Status Date / Time cefazolin Allergy ITCHING Verified 03/19/17 18:00 iodine Allergy ITCHING Verified 03/19/17 18:00 vancomycin Allergy ITCHING Verified 03/19/17 18:00 Results - Vital Signs Recent Vital Signs: Last Vital Signs Temp 99.9 F H 04/06/17 15:45 Pulse 59 L 04/06/17 21:58 Resp 16 04/06/17 21:58 BP 134/65 04/06/17 21:58 Pulse Ox 100 04/07/17 00:52 - Labs Result Diagrams: 04/07/17 06:00 04/07/17 06:00 Labs: Laboratory Results - last 24 hr 04/06/17 04/06/17 04/06/17 05:18 15:47 17:15 WBC 10.6 D RBC 3.68 L Hgb 10.7 L Hct 33.2 L MCV 90.2 MCH 28.9 MCHC 32.1 L RDW 15.8 H Plt Count 241 MPV 7.6 Neut % (Auto) 79.5 H Lymph % (Auto) 12.8 L [place] % (Auto) 7.5 Eos % (Auto) 0.0 Baso % (Auto) 0.2 Neut # 8.4 H Lymph # 1.4 [place] # 0.8 Eos # 0.0 Baso # 0.0 pO2 VBG pH VBG pCO2 VBG HCO3 VBG Total CO2 VBG O2 Sat (Calc) VBG Base Excess VBG Potassium Glucose Lactate FiO2 Sodium Potassium Chloride Carbon Dioxide Anion Gap BUN Creatinine Est GFR ( Amer) Est GFR (Non-Af Amer) POC Glucose (mg/dL) 187 H Random Glucose Calcium Total Bilirubin AST ALT Alkaline Phosphatase Troponin I Total Protein Albumin Globulin Albumin/Globulin Ratio Amylase Lipase Venous Blood Potassium Urine Color Yellow Urine Clarity Slighty-cloudy Urine pH 6.0 Ur Specific [place] 1.014 Urine Protein Negative Urine Glucose (UA) Neg Urine Ketones Negative Urine Blood Negative Urine Nitrate Negative Urine Bilirubin Negative Urine Urobilinogen 0.2-1.0 Ur Leukocyte Esterase Neg Urine RBC (Auto) 2 Urine Microscopic WBC 3 Ur Squamous Epith Cells 2 Calcium Oxalate Crystal Few H Hyaline Casts 0-2 04/06/17 04/06/17 17:15 19:58 WBC RBC Hgb Hct MCV MCH MCHC RDW Plt Count MPV Neut % (Auto) Lymph % (Auto) [place] % (Auto) Eos % (Auto) Baso % (Auto) Neut # Lymph # [place] # Eos # Baso # pO2 34 VBG pH 7.48 H VBG pCO2 45 VBG HCO3 31.1 VBG Total CO2 34.9 H VBG O2 Sat (Calc) 75.0 H VBG Base Excess 8.8 H VBG Potassium 3.6 Glucose 119 H Lactate 0.7 FiO2 21.0 Sodium 138 138.0 Potassium 4.0 Chloride 103 104.0 Carbon Dioxide 27 Anion Gap 12 BUN 14 Creatinine 0.7 Est GFR ( Amer) > 60 Est GFR (Non-Af Amer) > 60 POC Glucose (mg/dL) Random Glucose 154 H Calcium 11.8 H Total Bilirubin 0.5 AST 13 L ALT 12 Alkaline Phosphatase 81 Troponin I < 0.0120 Total Protein 6.7 Albumin 3.5 Globulin 3.2 Albumin/Globulin Ratio 1.1 Amylase 122 H D Lipase 18 L Venous Blood Potassium 3.6 Urine Color Urine Clarity Urine pH Ur Specific [place] Urine Protein Urine Glucose (UA) Urine Ketones Urine Blood Urine Nitrate Urine Bilirubin Urine Urobilinogen Ur Leukocyte Esterase Urine RBC (Auto) Urine Microscopic WBC Ur Squamous Epith Cells Calcium Oxalate Crystal Hyaline Casts Assessment & Plan - Assessment and Plan (Free Text) Assessment: 61 y/o female with CKD s/p Renal transplant 11 years ago, frequent UTIs with ESBL, DM type 2 in no current medications, Diverticulosis with frequent episodes of diverticulitis admitted with recurrent acute on chronic diverticulitis. Plan: Abdominal pain Most likely 2/2 Acute on chronic Diverticulitis -MedSurg -low grade fever of 99.9 F at ED, no leukocytosis -NPO except meds -IV fluids, NSS 0.9 % @ 80 ml/hr -C/w Cipro and Flagyl IV -f/u C. 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 Carter in AM, so far no other recommendations at this time. -consider GI consult -abdomen CT: Giant sigmoid diverticula with associated inflammation, no significant fluid collection, no free air Anemia Chronic, since 2016 possible anemia of Chronic diseases Asymptomatic, HR wnl stable H/H: 10.2/33.7 compared with previous H/H H/o CKD s/p Kidney transplant -BUN/Cr: wnl -GFR>60 -mycophenolate 250 mg BID -prednisone 5 mg daily -Cinalcacet 30 mg daily -consider Nephro consult while in hospital, Dr. Glez Hypercalcemia. chronic since 2016 - Likely secondary to CKD -Cinacalet 30 mg PO daily Chronic UTI - H/O UTI by ESBL (01/18/17) -Prior admission showed UTI with post E. Coli no ESBL (03/10/17)( treated w/ meropenem x 14 days as per ID) - PT was dc home on Bactrim DS M- W- for prophylaxis, but as per pt, she is not taking the Bactrim at this time -UA on 04/06/17showed no evidence of UTI -asymptomatic -f/u Urine culture H/o DM type 2 resolved recently HgbA1C on 03/10/17 was 5.5 patient in no current DM medications or insulin HTN re-assume home amlodipine 5 mg PO daily f/u BP DVT prophylaxis SCDs for now - Date & Time Date: 04/07/17 Time: 01:20
--- NOTE | 2017-04-07 02:06 | CP.PCM.CON ---
History of Present Illness - History of Present Illness History of Present Illness: General Surgery consult note for Dr. Carter Consulted for: diverticulitis Patient is a 61F with extensive PMH including multiple bouts of diverticulitis of the sigmoid colon, DM2, and CKD with PSH including renal transplant and c- section who present to the ER with pain in her suprapubis, LLQ, and left back, nausea, and one episode of NB/NB emesis. Patient was recently admitted at [facility] for several weeks for acute diverticulitis and was discharged 2 weeks ago. Patient was to undergo an outpatient colonoscopy for further assessment but states she had too much pain and felt too weak to have the scope. Patient states that she has chronic lower abdominal pain but that it got worse over the past two weeks since discharge. Patient has had a 60# weight loss over past 9 months. Patient also admits dysuria today, but denies hematuria. Denies any fevers, chills, hematochezia, melena, diarrhea, or constipation, chest pain, SOB , or any other symptoms. CT scan revealed several colon diverticula with very large diverticula in the sigimoid colon with associated wall thickening and adjacent fat stranding and bladder wall thickening. No free air or sign of perforation Afebrile, WBC wnl PMH: DM2, diverticulitis, CKD formerly on HD but resolved with right renal transplant, HTN, HLD, recurrent UTI's PSH: BL arm AVF, renal transplant, CSxn ALL: cefazolin, iodine, vancomycin Social: denies tobacco, alcohol, or illicit substance use Review of Systems - Review of Systems All systems: reviewed and no additional remarkable complaints except - Constitutional Constitutional: As Per HPI, Anorexia, Weight Loss. absent: Fever - Cardiovascular Cardiovascular: absent: Chest Pain, Chest Pain at Rest, Dyspnea - Respiratory Respiratory: absent: Cough, Dyspnea, Hemoptysis - Gastrointestinal Gastrointestinal: As Per HPI, Abdominal Pain, Nausea, Vomiting. absent: Constipation, Diarrhea, Hematemesis, Hematochezia, Melena - Genitourinary Genitourinary: As Per HPI, Dysuria. absent: Hematuria, Pyuria - Musculoskeletal Musculoskeletal: Back Pain, Numbness (BL feet), Tingling (BL feet) - Neurological Neurological: Numbness (BL feet), Tingling. absent: Focal Weakness Past Patient History - Infectious Disease Hx of Infectious Diseases: C.diff - Past Medical History & Family History Past Medical History?: Yes Past Family History: Reviewed and not pertinent - Past Social History Smoking Status: Never Smoked Alcohol: None Drugs: Denies - CARDIAC Hx Hypercholesterolemia: Yes Hx Hypertension: Yes - PULMONARY Hx Respiratory Disorders: No - NEUROLOGICAL Hx Neurological Disorder: No - HEENT Hx HEENT Problems: No - RENAL Hx Chronic Kidney Disease: Yes (kidney transplant) Hx Dialysis: Yes (prior to kidney transplant) - ENDOCRINE/METABOLIC Hx Diabetes Mellitus Type 2: Yes - HEMATOLOGICAL/ONCOLOGICAL Hx Anemia: Yes - INTEGUMENTARY Hx Dermatological Problems: No - MUSCULOSKELETAL/RHEUMATOLOGICAL Hx Back Pain: Yes (lumbar spine compression fracture) Hx Falls: Yes - GASTROINTESTINAL Hx Gastrointestinal Disorders: Yes Hx Diverticulitis: Yes - GENITOURINARY/GYNECOLOGICAL Hx Urinary Tract Infection: Yes Other/Comment: hx esbl urine - PSYCHIATRIC Hx Psychophysiologic Disorder: No Hx Substance Use: No - SURGICAL HISTORY Hx Surgeries: Yes Hx Arteriovenous Shunt: Yes Hx Section: Yes (x2) Hx Vascular Access Device: Yes Other/Comment: RIGHT KIDNEY TRANSPLANT - ANESTHESIA Hx Anesthesia: Yes Hx Anesthesia Reactions: No Hx Malignant Hyperthermia: No Meds Allergies/Adverse Reactions: Allergies Allergy/AdvReac Type Severity Reaction Status Date / Time cefazolin Allergy ITCHING Verified 03/19/17 18:00 iodine Allergy ITCHING Verified 03/19/17 18:00 vancomycin Allergy ITCHING Verified 03/19/17 18:00 - Medications Medications: Current Medications Sodium Chloride (Sodium Chloride 0.9%) 1,000 mls @ 80 mls/hr IV .[id number] BEN Stop: 04/08/17 01:07 Last Admin: 04/07/17 01:57 Dose: 80 mls/hr Ketorolac Tromethamine (Toradol) 15 mg IVP Q6 PRN PRN Reason: Pain, moderate (4-7) Ondansetron HCl (Zofran Inj) 2 mg IVP Q6 PRN PRN Reason: Nausea/Vomiting Physical Exam - Constitutional Appears: Non-toxic, No Acute Distress, Older Than Stated Age, Cachectic, Chronically Ill - Head Exam Head Exam: ATRAUMATIC, NORMOCEPHALIC - Eye Exam Eye Exam: Normal appearance. absent: Conjunctival injection, Scleral icterus - ENT Exam ENT Exam: Mucous Membranes Moist, Normal Oropharynx - Respiratory Exam Respiratory Exam: NORMAL BREATHING PATTERN. absent: Accessory Muscle Use, Respiratory Distress - Cardiovascular Exam Cardiovascular Exam: RRR - GI/Abdominal Exam GI & Abdominal Exam: Soft, Tenderness (moderate TTP LLQ and suprapubis). absent : Distended, Guarding, Rebound, Rigid - Extremities Exam Extremities exam: Positive for: pedal pulses present. Negative for: calf tenderness, pedal edema - Neurological Exam Neurological exam: Alert, Oriented x3 - Psychiatric Exam Psychiatric exam: Normal Affect, Normal Mood - Skin Skin Exam: Dry, Intact, Normal Color, Warm Results - Vital Signs Recent Vital Signs: Last Vital Signs Temp 98.8 F 04/07/17 01:48 Pulse 60 04/07/17 01:48 Resp 16 04/07/17 01:48 BP 146/71 04/07/17 01:48 Pulse Ox 100 04/07/17 01:48 - Labs Result Diagrams: 04/06/17 17:15 04/06/17 17:15 Assessment & Plan - Assessment and Plan (Free Text) Assessment: 61F with many comorobidities and PMH of multiple episodes of diverticulitis with acute on chronic diverticulitis with no sign of perforation afebrile, VSS WBC wnl CT with PO contrast: several colon diverticula and very large diverticula in the sigimoid colon with associated wall thickening and adjacent fat stranding and bladder wall thickening. No free air or sign of perforation UA negative for signs of UTI Plan: -No emergent surgical intervention at this time--patient's exam is non-acute, VSS, and CT not much changed compared to previous CT 3 weeks ago. Patient is a very poor surgical candidiate d/t comorbidities and overall frail health. -Would recommend GI consult -Continue to trend CBC/BMP and monitor vitals -Serial abdominal exams -NPO -IV antibiotics, IVF -Strict I&O's -Incentive spirometer, SCD's, GI ppx Further recs per Dr. Raul Diez, PGY2
[2017-04-07] MEDS: metroNIDAZOLE 500mg/100ml NS 100 ML IVPB SCH ×3 (03:11→18:41)
[2017-04-07 07:07] LABS: MEAN CELL VOLUME 89.9 fl (81.0-99.0); MEAN CORPUSCULAR HGB CONC 32.2 g/dL (33.0-37.0); RED CELL DISTRIBUTION WIDTH 15.6 % (11.5-14.5); WHITE BLOOD COUNT 6.4 K/uL (4.8-10.8)
[2017-04-07 07:22] LABS: BLOOD UREA NITROGEN 11 mg/dl (7-17); CALCIUM 11.1 mg/dL (8.4-10.2); CARBON DIOXIDE 28 mmol/L (22-30); CHLORIDE 102 mmol/L (98-107); GFR AFRICAN-AMERICAN > 60; GLUCOSE,RANDOM 78 mg/dL (65-105); POTASSIUM 3.6 MMOL/L (3.6-5.0); SODIUM 137 mmol/l (132-148)
--- NOTE | 2017-04-07 09:26 | CARD ---
APPROVED REPORT EKG Measurement Heart [id number] <Conclusion> Sinus rhythm with marked sinus arrhythmia Otherwise normal ECG
[2017-04-07] MEDS: Ciprofloxacin 400mg/200ml D5W 400 MG/200 ML BAG IVPB SCH (14:18)
--- NOTE | 2017-04-07 14:35 | CP.PCM.PN ---
Subjective - Date & Time of Evaluation Date of Evaluation: 04/07/17 Time of Evaluation: 14:33 - Subjective Subjective: overnight, no event. denies fever, chills, nausea, vomiting. c/o LLQ abd pain. diarrhea x1 today. NPO. making urine Objective - Vital Signs/Intake and Output Vital Signs (last 24 hours): Temp Pulse Resp BP Pulse Ox 97.5 F L 61 18 147/65 99 04/07/17 07:55 04/07/17 09:53 04/07/17 07:55 04/07/17 09:53 04/07/17 07:55 - Medications Medications: Current Medications Amlodipine Besylate (Norvasc) 5 mg PO DAILY [facility] Last Admin: 04/07/17 09:53 Dose: 5 mg Cinacalcet (Sensipar) 30 mg PO DAILY [facility] Last Admin: 04/07/17 10:55 Dose: 30 mg Heparin Sodium (Porcine) (Heparin) 5,000 units SC Q12 BEN PRN Reason: Protocol Last Admin: 04/07/17 10:55 Dose: 5,000 units Sodium Chloride (Sodium Chloride 0.9%) 1,000 mls @ 80 mls/hr IV .[id number] [facility] Stop: 04/08/17 01:07 Last Admin: 04/07/17 01:57 Dose: 80 mls/hr Ciprofloxacin (Cipro 400mg/200ml Dsw) 400 mg in 200 mls @ 200 mls/hr IVPB Q12@ 0200,1400 [facility] Last Admin: 04/07/17 14:18 Dose: 200 mls/hr Metronidazole (Flagyl 500mg/100ml Ns) 100 mls @ 100 mls/hr IVPB Q8@0300,1100, 1900 [facility] Last Admin: 04/07/17 10:55 Dose: 100 mls/hr Ketorolac Tromethamine (Toradol) 15 mg IVP Q6 PRN PRN Reason: Pain, moderate (4-7) Mycophenolate Mofetil (Cellcept Cap) 250 mg PO BID [facility] Last Admin: 04/07/17 09:52 Dose: 250 mg Ondansetron HCl (Zofran Inj) 4 mg IVP Q6 PRN PRN Reason: Nausea/Vomiting Pantoprazole Sodium (Protonix Inj) 40 mg IVP DAILY [facility] Last Admin: 04/07/17 09:53 Dose: 40 mg Prednisone (Prednisone Tab) 5 mg PO DAILY [facility] Last Admin: 04/07/17 09:53 Dose: 5 mg Tacrolimus (Prograf Cap) 5 mg PO BID [facility] Last Admin: 04/07/17 09:53 Dose: 5 mg - Labs Labs: 04/07/17 06:00 04/07/17 06:00 - Constitutional Appears: Non-toxic, No Acute Distress - Head Exam Head Exam: ATRAUMATIC, NORMAL INSPECTION - Eye Exam Eye Exam: Normal appearance - Neck Exam Neck Exam: Normal Inspection - Respiratory Exam Respiratory Exam: Clear to Ausculation Bilateral - Cardiovascular Exam Cardiovascular Exam: REGULAR RHYTHM - GI/Abdominal Exam GI & Abdominal Exam: Soft, Tenderness (LLQ), Normal Bowel Sounds - Extremities Exam Extremities Exam: Normal Inspection. absent: Pedal Edema - Back Exam Back Exam: NORMAL INSPECTION - Neurological Exam Neurological Exam: Alert, Oriented x3 - Skin Skin Exam: Dry, Warm Assessment and Plan - Assessment and Plan (Free Text) Assessment: Assessment: 61yo F with PMHx diverticulosis, CKD s/p Renal transplant 2005, ESBL UTI admitted with diverticulitis. Plan: NPO, IV abx, pain control. advance diet as tolerated Saturday AM, d/c w/ PO abx if well tolerated to renal diet Sigmoid Diverticulitis -NPO except meds -MIVF -C/w Cipro and Flagyl IV -f/u C. Diff toxin -General Surgery consulted -abdomen CT: Giant sigmoid diverticula with associated inflammation, no significant fluid collection, no free air Anemia -likely ACD -stable H/H: 10.2/33.7 H/o CKD s/p Kidney transplant -BUN/Cr: wnl -GFR>60 -mycophenolate 250 mg BID -prednisone 5 mg daily -Cinalcacet 30 mg daily Chronic Hypercalcemia - Likely secondary to CKD -Cinacalet 30 mg PO daily h/O ESBL UTI (01/18/17) - dc home on Bactrim DS - - for prophylaxis, but as per pt, she is not taking the Bactrim at this time -Urine culture HTN - amlodipine 5 mg PO daily DVT prophylaxis -Heparin Dispo: -d/c saturday if renal well tolerated
[2017-04-08] MEDS: Ciprofloxacin 400mg/200ml D5W 400 MG/200 ML BAG IVPB SCH (02:21)
[2017-04-08] MEDS: metroNIDAZOLE 500mg/100ml NS 100 ML IVPB SCH ×2 (03:30→12:29)
[2017-04-08 06:48] LABS: ALKALINE PHOSPHATASE 64 U/L (38-126); ALT/SGPT 21 U/L (9-52); AST/SGOT 11 U/L (14-36); BILIRUBIN,TOTAL 0.5 mg/dl (0.2-1.3); BLOOD UREA NITROGEN 8 mg/dl (7-17); CALCIUM 10.4 mg/dL (8.4-10.2); CARBON DIOXIDE 23 mmol/L (22-30); CHLORIDE 108 mmol/L (98-107); GFR AFRICAN-AMERICAN > 60; GLUCOSE,RANDOM 78 mg/dL (65-105); POTASSIUM 3.3 MMOL/L (3.6-5.0); SODIUM 137 mmol/l (132-148); TOTAL PROTEIN 5.3 G/DL (6.3-8.2)
[2017-04-08 06:49] LABS: BASO % 0.2 % (0.0-2.0); EOS % 0.4 % (0.0-4.0); HEMATOCRIT 29.5 % (34.0-47.0); LYMPH # 1.6 K/uL (1.0-4.3); LYMPH % 38.6 % (20.0-40.0); MEAN CELL VOLUME 89.5 fl (81.0-99.0); MEAN CORPUSCULAR HEMOGLOBIN 28.8 pg (27.0-31.0); MEAN CORPUSCULAR HGB CONC 32.2 g/dL (33.0-37.0); MEAN PLATELET VOLUME 7.3 fl (7.2-11.7); MONO # 0.4 K/uL (0.0-0.8); MONO % 9.9 % (0.0-10.0); NEUT # 2.2 K/uL (1.8-7.0); NEUT % 50.9 % (50.0-75.0); NRBC % 0.1 % (0.0-0.0); RED CELL DISTRIBUTION WIDTH 15.3 % (11.5-14.5); WHITE BLOOD COUNT 4.2 K/uL (4.8-10.8)
[2017-04-08] MEDS ORDERED: Potassium Chloride 20 mEq ER Tab PO ONE (07:18)
--- NOTE | 2017-04-08 07:37 | CP.PCM.PN ---
<Marsha Diez - Last Filed: 04/08/17 07:37> Subjective - Date & Time of Evaluation Date of Evaluation: 04/08/17 Time of Evaluation: 06:50 - Subjective Subjective: Patient seen and examined at bedside. CARLOS. Patient states her pain is improved and tolerated CLD yesterday without any n/v. Continues to have non bloody diarrhea Objective - Vital Signs/Intake and Output Vital Signs (last 24 hours): Temp Pulse Resp BP Pulse Ox 97.9 F 61 19 116/58 L 99 04/08/17 00:27 04/08/17 00:27 04/08/17 00:27 04/08/17 00:27 04/08/17 00:27 - Medications Medications: Current Medications Amlodipine Besylate (Norvasc) 5 mg PO DAILY COUNT [facility]CLUDES [facility] Last Admin: 04/07/17 09:53 Dose: 5 mg Cinacalcet (Sensipar) 30 mg PO DAILY [facility]CLUDES [facility] Last Admin: 04/07/17 10:55 Dose: 30 mg Heparin Sodium (Porcine) (Heparin) 5,000 units SC Q12 BEN PRN Reason: Protocol Last Admin: 04/07/17 21:37 Dose: 5,000 units Ciprofloxacin (Cipro 400mg/200ml Dsw) 400 mg in 200 mls @ 200 mls/hr IVPB Q12@ 0200,1400 [facility]CLUDES [facility] Last Admin: 04/08/17 02:21 Dose: 200 mls/hr Metronidazole (Flagyl 500mg/100ml Ns) 100 mls @ 100 mls/hr IVPB Q8@0300,1100, 1900 [facility] Last Admin: 04/08/17 03:30 Dose: 100 mls/hr Potassium Chloride/Dextrose/Sod Cl (Potassium Chl 20 Meq In D5-1/2ns) 1,000 mls @ 80 mls/hr IV .[id number] COUNT INCLUDES [facility] Stop: 04/10/17 07:46 Ketorolac Tromethamine (Toradol) 15 mg IVP Q6 PRN PRN Reason: Pain, moderate (4-7) Mycophenolate Mofetil (Cellcept Cap) 250 mg PO BID COUNT [facility]CLUDES [facility] Last Admin: 04/07/17 18:42 Dose: 250 mg Ondansetron HCl (Zofran Inj) 4 mg IVP Q6 PRN PRN Reason: Nausea/Vomiting Last Admin: 04/07/17 16:03 Dose: 4 mg Pantoprazole Sodium (Protonix Inj) 40 mg IVP DAILY [facility]CLUD[facility] Last Admin: 04/07/17 09:53 Dose: 40 mg Prednisone (Prednisone Tab) 5 mg PO DAILY COUNT [facility]CLUD[facility] Last Admin: 04/07/17 09:53 Dose: 5 mg Tacrolimus (Prograf Cap) 5 mg PO BID COUNT [facility]CLUDES [facility] Last Admin: 04/07/17 21:37 Dose: 5 mg - Labs Labs: 04/08/17 06:30 04/08/17 06:30 - Constitutional Appears: Non-toxic, No Acute Distress, Older Than Stated Age - Head Exam Head Exam: ATRAUMATIC, NORMOCEPHALIC - Eye Exam Eye Exam: Normal appearance. absent: Conjunctival injection, Scleral icterus - ENT Exam ENT Exam: Mucous Membranes Moist, Normal Oropharynx - Respiratory Exam Respiratory Exam: NORMAL BREATHING PATTERN. absent: Accessory Muscle Use, Respiratory Distress - Cardiovascular Exam Cardiovascular Exam: RRR - GI/Abdominal Exam GI & Abdominal Exam: Soft, Tenderness (in the LLQ). absent: Distended - Extremities Exam Extremities Exam: absent: Calf Tenderness, Pedal Edema, Tenderness - Neurological Exam Neurological Exam: Alert, Awake, Oriented x3 - Psychiatric Exam Psychiatric exam: Normal Affect, Normal Mood - Skin Skin Exam: Dry, Intact, Normal Color, Warm Assessment and Plan - Assessment and Plan (Free Text) Assessment: 61F with many comorobiditieswith acute on chronic diverticulitis Tolerated CLD WBC wnl Plan: -Patient will need colonoscopy to aid in any further surgical planning -Would recommend GI consult -Continue to trend CBC/BMP and monitor vitals -Serial abdominal exams -ADAT, would recommend diet supplementation in light of recent weight loss -IV antibiotics, IVF -Strict I&O's -Incentive spirometer, SCD's, GI ppx Will discuss with attending Marsha Diez PGY2 <Reno Wilson - Last Filed: 04/08/17 13:39> Subjective - Date & Time of Evaluation Time of Evaluation: 13:15 - Subjective Subjective: Patient was seen and examined at the bedside. Agree with resident's note above. Objective - Vital Signs/Intake and Output Vital Signs (last 24 hours): Temp Pulse Resp BP Pulse Ox 97.8 F 61 18 145/62 99 04/08/17 08:08 04/08/17 08:08 04/08/17 08:08 04/08/17 08:24 04/08/17 08:08 - Medications Medications: Current Medications Amlodipine Besylate (Norvasc) 5 mg PO DAILY [facility] Last Admin: 04/08/17 08:24 Dose: 5 mg Cinacalcet (Sensipar) 30 mg PO DAILY [facility] Last Admin: 04/08/17 08:24 Dose: 30 mg Heparin Sodium (Porcine) (Heparin) 5,000 units SC Q12 COUNT [facility]CLUDES [facility] PRN Reason: Protocol Last Admin: 04/08/17 08:24 Dose: 5,000 units Ciprofloxacin (Cipro 400mg/200ml Dsw) 400 mg in 200 mls @ 200 mls/hr IVPB Q12@ 0200,1400 COUNT [facility]CLUDES [facility] Last Admin: 04/08/17 02:21 Dose: 200 mls/hr Potassium Chloride/Dextrose/Sod Cl (Potassium Chl 20 Meq In D5-1/2ns) 1,000 mls @ 80 mls/hr IV .[id number] COUNT INCLUDES [facility] Stop: 04/10/17 07:46 Last Admin: 04/08/17 08:24 Dose: 80 mls/hr Ketorolac Tromethamine (Toradol) 15 mg IVP Q6 PRN PRN Reason: Pain, moderate (4-7) Lactobacillus Acidophilus (Bacid Acidophilus) 1 cap PO BID COUNT [facility]CLUDES [facility] Last Admin: 04/08/17 10:38 Dose: 1 cap Metronidazole (Flagyl) 500 mg PO Q8H COUNT INCLUDES [facility] Mycophenolate Mofetil (Cellcept Cap) 250 mg PO BID COUNT INCLUDES [facility] Last Admin: 04/08/17 08:25 Dose: 250 mg Ondansetron HCl (Zofran Inj) 4 mg IVP Q6 PRN PRN Reason: Nausea/Vomiting Last Admin: 04/08/17 10:39 Dose: 4 mg Pantoprazole Sodium (Protonix Inj) 40 mg IVP DAILY COUNT [facility]CLUD[facility] Last Admin: 04/08/17 08:25 Dose: 40 mg Prednisone (Prednisone Tab) 5 mg PO DAILY COUNT [facility]CLUD[facility] Last Admin: 04/08/17 08:24 Dose: 5 mg Tacrolimus (Prograf Cap) 5 mg PO BID COUNT [facility]CLUD[facility] Last Admin: 04/08/17 08:24 Dose: 5 mg - Labs Labs: 04/08/17 06:30 04/08/17 06:30 Assessment and Plan - Assessment and Plan (Free Text) Plan: - Continue diet - pain control - Continue antibiotics - Will require colonoscopy on the outpatient bases - No general surgery intervention at present time - Continue care as per medical team - Will follow
[2017-04-08] MEDS ORDERED: Potassium Ch 20mEq in D5-1/2NS 1,000 ML IV SCH (07:45)
--- NOTE | 2017-04-08 08:50 | CP.PCM.PN ---
Subjective - Date & Time of Evaluation Date of Evaluation: 04/08/17 Time of Evaluation: 07:30 - Subjective Subjective: Patient seen and examined in MedSurg unit this morning. Still c/o LLQ abdominal pain, however she states that the pain has improved. Reports she is tolerated PO liquids since yesterday, but still having poor appetite, and had 2 episodes of yellow soft diarrheas early this morning. Denies Cp, SOB, cough, N/V or other complains at this eval. Had an uneventful night. Objective - Vital Signs/Intake and Output Vital Signs (last 24 hours): Temp Pulse Resp BP Pulse Ox 97.8 F 61 18 145/62 99 04/08/17 08:08 04/08/17 08:08 04/08/17 08:08 04/08/17 08:24 04/08/17 08:08 - Medications Medications: Current Medications Amlodipine Besylate (Norvasc) 5 mg PO DAILY [facility] Last Admin: 04/08/17 08:24 Dose: 5 mg Cinacalcet (Sensipar) 30 mg PO DAILY [facility] Last Admin: 04/08/17 08:24 Dose: 30 mg Heparin Sodium (Porcine) (Heparin) 5,000 units SC Q12 BEN PRN Reason: Protocol Last Admin: 04/08/17 08:24 Dose: 5,000 units Ciprofloxacin (Cipro 400mg/200ml Dsw) 400 mg in 200 mls @ 200 mls/hr IVPB Q12@ 0200,1400 [facility] Last Admin: 04/08/17 02:21 Dose: 200 mls/hr Metronidazole (Flagyl 500mg/100ml Ns) 100 mls @ 100 mls/hr IVPB Q8@0300,1100, 1900 [facility] Last Admin: 04/08/17 03:30 Dose: 100 mls/hr Potassium Chloride/Dextrose/Sod Cl (Potassium Chl 20 Meq In D5-1/2ns) 1,000 mls @ 80 mls/hr IV .[id number] [facility] Stop: 04/10/17 07:46 Last Admin: 04/08/17 08:24 Dose: 80 mls/hr Ketorolac Tromethamine (Toradol) 15 mg IVP Q6 PRN PRN Reason: Pain, moderate (4-7) Mycophenolate Mofetil (Cellcept Cap) 250 mg PO BID [facility] Last Admin: 04/08/17 08:25 Dose: 250 mg Ondansetron HCl (Zofran Inj) 4 mg IVP Q6 PRN PRN Reason: Nausea/Vomiting Last Admin: 04/07/17 16:03 Dose: 4 mg Pantoprazole Sodium (Protonix Inj) 40 mg IVP DAILY [facility] Last Admin: 04/08/17 08:25 Dose: 40 mg Prednisone (Prednisone Tab) 5 mg PO DAILY [facility] Last Admin: 04/08/17 08:24 Dose: 5 mg Tacrolimus (Prograf Cap) 5 mg PO BID [facility] Last Admin: 04/08/17 08:24 Dose: 5 mg - Labs Labs: 04/08/17 06:30 04/08/17 06:30 - Constitutional Appears: No Acute Distress - ENT Exam ENT Exam: Mucous Membranes Moist - Respiratory Exam Respiratory Exam: Clear to Ausculation Bilateral, NORMAL BREATHING PATTERN - Cardiovascular Exam Cardiovascular Exam: REGULAR RHYTHM, +S1, +S2 - GI/Abdominal Exam GI & Abdominal Exam: Soft, Tenderness (mild tender to palaption of LLQ, no rebound tenderness noted), Normal Bowel Sounds. absent: Distended, Guarding, Rigid - Extremities Exam Extremities Exam: Normal Inspection. absent: Calf Tenderness, Pedal Edema - Neurological Exam Neurological Exam: Alert, Awake, Oriented x3 Assessment and Plan - Assessment and Plan (Free Text) Assessment: 61yo F with PMHx diverticulosis, CKD s/p Renal transplant 2005, ESBL UTI admitted with diverticulitis. Plan: Plan: Advance diet as tolerated today, d/c w/ PO abx if well tolerated to renal diet, IV abx, pain control. Sigmoid Diverticulitis -advance diet as tolerated -c/w IV fluids until PO is tolerated -C/w Cipro IV 400 mg IVP Q 12 day #2 -Flagyl 500 mg IVP Q8 day #2 -C. Diff toxin negative -ID consult appreciate -General Surgery consulted, f/u recommendations -abdomen CT: Giant sigmoid diverticula with associated inflammation, no significant fluid collection, no free air Anemia -likely ACD -stable H/H: 9.5/29.5, slightly decreased, could 2/2 IV fluids, delusional H/o CKD s/p Kidney transplant -BUN/Cr: wnl -GFR>60 -mycophenolate 250 mg BID -prednisone 5 mg daily -Cinalcacet 30 mg daily Chronic Hypercalcemia - Likely secondary to CKD -Cinacalet 30 mg PO daily UTI UA on admission was negative for WBC, nitrate, leukocyte est or blood, UCx came back showed Gram neg, awaiting final report h/O ESBL UTI (01/18/17) -dc home on Bactrim DS - - for prophylaxis, but as per pt, she is not taking the Bactrim at this time -patient is on cipro, however because her prior history of recurrent UTI, will consult ID specialist -ID consult appreciated, Dr. Yee, f/u recommendations Will need Urology consult as outpatient due to recurrent UTI HTN - amlodipine 5 mg PO daily DVT prophylaxis -Heparin 5000 u Q12
[2017-04-08 10:35] VITALS: BMI 15.7
[2017-04-08] MEDS: Lactobacillus Acidophilus 500 MU Cap PO SCH ×2 (10:38→17:13)
--- NOTE | 2017-04-08 12:48 | CP.PCM.CON ---
History of Present Illness - History of Present Illness History of Present Illness: Infectious Disease Consult Note- HPI- Patient known to me from her previous recent admission. Patient is a pleasant 61 year old female with pmh of CKD s/p renal transplant 11 years ago, DM II, diverticulitis and frequent bout of both UTI and diverticulitis attacks who was recently d/c after being treated for both c.diff and E.coli ( not ESBL) UTI infection( both treated and resolved) who is now admitted with c/o left lower abdomen pain and nausea and one episode of vomiting yesterday. Pt. denies any fever. pt. denies any diarrhea Patient was supposed to undergo an outpatient colonoscopy for further assessment but states she had too much pain and felt too weak to have the scope. PMD: Dr. Jaleesa Miner at [facility] Nephro: Dr. Glez PMH: Anemia, CKD ( formally on HD but not after receiving Right kidney transplant in 2004), HTN, DM2, HLD, , HX of falls, Diverticulitis, Recurrent UTI. 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 denies any OJEDA denies any cough or sob, denies any chest pain Past Patient History - Infectious Disease Hx of Infectious Diseases: C.diff - Past Medical History & Family History Past Medical History?: Yes - Past Social History Alcohol: None Drugs: Denies Home Situation {Lives}: Shelter - CARDIAC Hx Hypercholesterolemia: Yes Hx Hypertension: Yes - PULMONARY Hx Respiratory Disorders: No - NEUROLOGICAL Hx Neurological Disorder: No - HEENT Hx HEENT Problems: No - RENAL Hx Chronic Kidney Disease: Yes (kidney transplant) - ENDOCRINE/METABOLIC Hx Diabetes Mellitus Type 2: Yes - HEMATOLOGICAL/ONCOLOGICAL Hx Anemia: Yes - INTEGUMENTARY Hx Dermatological Problems: No - MUSCULOSKELETAL/RHEUMATOLOGICAL Hx Falls: Yes - GASTROINTESTINAL Hx Diverticulitis: Yes - GENITOURINARY/GYNECOLOGICAL Other/Comment: hx esbl urine - PSYCHIATRIC Hx Psychophysiologic Disorder: No Hx Substance Use: No - SURGICAL HISTORY Hx Surgeries: Yes Hx Arteriovenous Shunt: Yes Hx Section: Yes (x2) Hx Vascular Access Device: Yes Other/Comment: RIGHT KIDNEY TRANSPLANT - ANESTHESIA Hx Anesthesia: Yes Hx Anesthesia Reactions: No Hx Malignant Hyperthermia: No Meds Allergies/Adverse Reactions: Allergies Allergy/AdvReac Type Severity Reaction Status Date / Time cefazolin Allergy ITCHING Verified 03/19/17 18:00 iodine Allergy ITCHING Verified 03/19/17 18:00 vancomycin Allergy ITCHING Verified 03/19/17 18:00 - Medications Medications: Current Medications Amlodipine Besylate (Norvasc) 5 mg PO DAILY [facility] Last Admin: 04/08/17 08:24 Dose: 5 mg Cinacalcet (Sensipar) 30 mg PO DAILY [facility] Last Admin: 04/08/17 08:24 Dose: 30 mg Heparin Sodium (Porcine) (Heparin) 5,000 units SC Q12 [facility] PRN Reason: Protocol Last Admin: 04/08/17 08:24 Dose: 5,000 units Ciprofloxacin (Cipro 400mg/200ml Dsw) 400 mg in 200 mls @ 200 mls/hr IVPB Q12@ 0200,1400 [facility] Last Admin: 04/08/17 02:21 Dose: 200 mls/hr Potassium Chloride/Dextrose/Sod Cl (Potassium Chl 20 Meq In D5-1/2ns) 1,000 mls @ 80 mls/hr IV .[id number] [facility] Stop: 04/10/17 07:46 Last Admin: 04/08/17 08:24 Dose: 80 mls/hr Ketorolac Tromethamine (Toradol) 15 mg IVP Q6 PRN PRN Reason: Pain, moderate (4-7) Lactobacillus Acidophilus (Bacid Acidophilus) 1 cap PO BID [facility] Last Admin: 04/08/17 10:38 Dose: 1 cap Metronidazole (Flagyl) 500 mg PO Q8H [facility] Mycophenolate Mofetil (Cellcept Cap) 250 mg PO BID [facility] Last Admin: 04/08/17 08:25 Dose: 250 mg Ondansetron HCl (Zofran Inj) 4 mg IVP Q6 PRN PRN Reason: Nausea/Vomiting Last Admin: 04/08/17 10:39 Dose: 4 mg Pantoprazole Sodium (Protonix Inj) 40 mg IVP DAILY [facility] Last Admin: 04/08/17 08:25 Dose: 40 mg Prednisone (Prednisone Tab) 5 mg PO DAILY [facility] Last Admin: 04/08/17 08:24 Dose: 5 mg Tacrolimus (Prograf Cap) 5 mg PO BID [facility] Last Admin: 04/08/17 08:24 Dose: 5 mg Physical Exam - Constitutional Appears: Non-toxic, No Acute Distress - Head Exam Head Exam: ATRAUMATIC - Eye Exam Eye Exam: EOMI, PERRL - ENT Exam ENT Exam: Normal Oropharynx - Respiratory Exam Respiratory Exam: Clear to Auscultation Bilateral, NORMAL BREATHING PATTERN - Cardiovascular Exam Cardiovascular Exam: RRR, +S1, +S2 - GI/Abdominal Exam GI & Abdominal Exam: Normal Bowel Sounds, Soft Additional comments: minimal tenderness with palpation in the LLQ no guarding, no rebound no cva tenderness b/l - Extremities Exam Extremities exam: Positive for: normal inspection - Neurological Exam Neurological exam: Alert, Oriented x3 Results - Vital Signs Recent Vital Signs: Last Vital Signs Temp 97.8 F 04/08/17 08:08 Pulse 61 04/08/17 08:08 Resp 18 04/08/17 08:08 BP 145/62 04/08/17 08:24 Pulse Ox 99 04/08/17 08:08 - Labs Result Diagrams: 04/08/17 06:30 04/08/17 06:30 Labs: Laboratory Results - last 24 hr 04/08/17 04/08/17 04/08/17 05:50 06:30 06:30 WBC 4.2 L RBC 3.29 L Hgb 9.5 L Hct 29.5 L MCV 89.5 MCH 28.8 MCHC 32.2 L RDW 15.3 H Plt Count 190 MPV 7.3 Neut % (Auto) 50.9 Lymph % (Auto) 38.6 Heard % (Auto) 9.9 Eos % (Auto) 0.4 Baso % (Auto) 0.2 Neut # 2.2 Lymph # 1.6 Heard # 0.4 Eos # 0.0 Baso # 0.0 Sodium 137 Potassium 3.3 L Chloride 108 H Carbon Dioxide 23 Anion Gap 9 L BUN 8 Creatinine 0.7 Est GFR ( Amer) > 60 Est GFR (Non-Af Amer) > 60 POC Glucose (mg/dL) 72 Random Glucose 78 Calcium 10.4 H Total Bilirubin 0.5 AST 11 L ALT 21 Alkaline Phosphatase 64 Total Protein 5.3 L Albumin 2.7 L D Globulin 2.6 Albumin/Globulin Ratio 1.0 04/08/17 11:02 WBC RBC Hgb Hct MCV MCH MCHC RDW Plt Count MPV Neut % (Auto) Lymph % (Auto) Heard % (Auto) Eos % (Auto) Baso % (Auto) Neut # Lymph # Heard # Eos # Baso # Sodium Potassium Chloride Carbon Dioxide Anion Gap BUN Creatinine Est GFR ( Amer) Est GFR (Non-Af Amer) POC Glucose (mg/dL) 104 Random Glucose Calcium Total Bilirubin AST ALT Alkaline Phosphatase Total Protein Albumin Globulin Albumin/Globulin Ratio Laboratory Results - last 72 hr 04/06/17 04/06/17 04/06/17 05:18 15:47 17:15 WBC 10.6 D RBC 3.68 L Hgb 10.7 L Hct 33.2 L MCV 90.2 MCH 28.9 MCHC 32.1 L RDW 15.8 H Plt Count 241 MPV 7.6 Neut % (Auto) 79.5 H Lymph % (Auto) 12.8 L Heard % (Auto) 7.5 Eos % (Auto) 0.0 Baso % (Auto) 0.2 Neut # 8.4 H Lymph # 1.4 Heard # 0.8 Eos # 0.0 Baso # 0.0 pO2 VBG pH VBG pCO2 VBG HCO3 VBG Total CO2 VBG O2 Sat (Calc) VBG Base Excess VBG Potassium Glucose Lactate FiO2 Sodium Potassium Chloride Carbon Dioxide Anion Gap BUN Creatinine Est GFR ( Amer) Est GFR (Non-Af Amer) POC Glucose (mg/dL) 187 H Random Glucose Calcium Total Bilirubin AST ALT Alkaline Phosphatase Troponin I Total Protein Albumin Globulin Albumin/Globulin Ratio Amylase Lipase Venous Blood Potassium Urine Color Yellow Urine Clarity Slighty-cloudy Urine pH 6.0 Ur Specific [place] 1.014 Urine Protein Negative Urine Glucose (UA) Neg Urine Ketones Negative Urine Blood Negative Urine Nitrate Negative Urine Bilirubin Negative Urine Urobilinogen 0.2-1.0 Ur Leukocyte Esterase Neg Urine RBC (Auto) 2 Urine Microscopic WBC 3 Ur Squamous Epith Cells 2 Calcium Oxalate Crystal Few H Hyaline Casts 0-2 C. difficile Ag & Toxin 04/06/17 04/06/17 04/07/17 17:15 19:58 06:00 WBC 6.4 RBC 3.23 L Hgb 9.3 L Hct 29.0 L MCV 89.9 MCH 29.0 MCHC 32.2 L RDW 15.6 H Plt Count 196 MPV Neut % (Auto) Lymph % (Auto) Heard % (Auto) Eos % (Auto) Baso % (Auto) Neut # Lymph # Heard # Eos # Baso # pO2 34 VBG pH 7.48 H VBG pCO2 45 VBG HCO3 31.1 VBG Total CO2 34.9 H VBG O2 Sat (Calc) 75.0 H VBG Base Excess 8.8 H VBG Potassium 3.6 Glucose 119 H Lactate 0.7 FiO2 21.0 Sodium 138 138.0 Potassium 4.0 Chloride 103 104.0 Carbon Dioxide 27 Anion Gap 12 BUN 14 Creatinine 0.7 Est GFR ( Amer) > 60 Est GFR (Non-Af Amer) > 60 POC Glucose (mg/dL) Random Glucose 154 H Calcium 11.8 H Total Bilirubin 0.5 AST 13 L ALT 12 Alkaline Phosphatase 81 Troponin I < 0.0120 Total Protein 6.7 Albumin 3.5 Globulin 3.2 Albumin/Globulin Ratio 1.1 Amylase 122 H D Lipase 18 L Venous Blood Potassium 3.6 Urine Color Urine Clarity Urine pH Ur Specific [place] Urine Protein Urine Glucose (UA) Urine Ketones Urine Blood Urine Nitrate Urine Bilirubin Urine Urobilinogen Ur Leukocyte Esterase Urine RBC (Auto) Urine Microscopic WBC Ur Squamous Epith Cells Calcium Oxalate Crystal Hyaline Casts C. difficile Ag & Toxin 04/07/17 04/07/17 04/08/17 06:00 09:45 05:50 WBC RBC Hgb Hct MCV MCH MCHC RDW Plt Count MPV Neut % (Auto) Lymph % (Auto) Heard % (Auto) Eos % (Auto) Baso % (Auto) Neut # Lymph # Heard # Eos # Baso # pO2 VBG pH VBG pCO2 VBG HCO3 VBG Total CO2 VBG O2 Sat (Calc) VBG Base Excess VBG Potassium Glucose Lactate FiO2 Sodium 137 Potassium 3.6 Chloride 102 Carbon Dioxide 28 Anion Gap 11 BUN 11 Creatinine 0.7 Est GFR ( Amer) > 60 Est GFR (Non-Af Amer) > 60 POC Glucose (mg/dL) 72 Random Glucose 78 Calcium 11.1 H Total Bilirubin AST ALT Alkaline Phosphatase Troponin I Total Protein Albumin Globulin Albumin/Globulin Ratio Amylase Lipase Venous Blood Potassium Urine Color Urine Clarity Urine pH Ur Specific [place] Urine Protein Urine Glucose (UA) Urine Ketones Urine Blood Urine Nitrate Urine Bilirubin Urine Urobilinogen Ur Leukocyte Esterase Urine RBC (Auto) Urine Microscopic WBC Ur Squamous Epith Cells Calcium Oxalate Crystal Hyaline Casts C. difficile Ag & Toxin Negative 04/08/17 04/08/17 04/08/17 06:30 06:30 11:02 WBC 4.2 L RBC 3.29 L Hgb 9.5 L Hct 29.5 L MCV 89.5 MCH 28.8 MCHC 32.2 L RDW 15.3 H Plt Count 190 MPV 7.3 Neut % (Auto) 50.9 Lymph % (Auto) 38.6 Heard % (Auto) 9.9 Eos % (Auto) 0.4 Baso % (Auto) 0.2 Neut # 2.2 Lymph # 1.6 Heard # 0.4 Eos # 0.0 Baso # 0.0 pO2 VBG pH VBG pCO2 VBG HCO3 VBG Total CO2 VBG O2 Sat (Calc) VBG Base Excess VBG Potassium Glucose Lactate FiO2 Sodium 137 Potassium 3.3 L Chloride 108 H Carbon Dioxide 23 Anion Gap 9 L BUN 8 Creatinine 0.7 Est GFR ( Amer) > 60 Est GFR (Non-Af Amer) > 60 POC Glucose (mg/dL) 104 Random Glucose 78 Calcium 10.4 H Total Bilirubin 0.5 AST 11 L ALT 21 Alkaline Phosphatase 64 Troponin I Total Protein 5.3 L Albumin 2.7 L D Globulin 2.6 Albumin/Globulin Ratio 1.0 Amylase Lipase Venous Blood Potassium Urine Color Urine Clarity Urine pH Ur Specific [place] Urine Protein Urine Glucose (UA) Urine Ketones Urine Blood Urine Nitrate Urine Bilirubin Urine Urobilinogen Ur Leukocyte Esterase Urine RBC (Auto) Urine Microscopic WBC Ur Squamous Epith Cells Calcium Oxalate Crystal Hyaline Casts C. difficile Ag & Toxin 04/08/17 15:30 WBC RBC Hgb Hct MCV MCH MCHC RDW Plt Count MPV Neut % (Auto) Lymph % (Auto) Heard % (Auto) Eos % (Auto) Baso % (Auto) Neut # Lymph # Heard # Eos # Baso # pO2 VBG pH VBG pCO2 VBG HCO3 VBG Total CO2 VBG O2 Sat (Calc) VBG Base Excess VBG Potassium Glucose Lactate FiO2 Sodium Potassium Chloride Carbon Dioxide Anion Gap BUN Creatinine Est GFR ( Amer) Est GFR (Non-Af Amer) POC Glucose (mg/dL) 156 H Random Glucose Calcium Total Bilirubin AST ALT Alkaline Phosphatase Troponin I Total Protein Albumin Globulin Albumin/Globulin Ratio Amylase Lipase Venous Blood Potassium Urine Color Urine Clarity Urine pH Ur Specific [place] Urine Protein Urine Glucose (UA) Urine Ketones Urine Blood Urine Nitrate Urine Bilirubin Urine Urobilinogen Ur Leukocyte Esterase Urine RBC (Auto) Urine Microscopic WBC Ur Squamous Epith Cells Calcium Oxalate Crystal Hyaline Casts C. difficile Ag & Toxin Microbiology 04/06/17 19:00 Urine,Clean Catch Urine Culture - Final Gram Negative Miles Microbiology 03/10/17 16:25 Urine Urine Culture - Final Escherichia Coli 03/10/17 14:30 Blood Blood Culture - Final 03/10/17 14:30 Blood Gram Stain - Final NO GROWTH AFTER 5 DAYS TEST NOT PERFORMED 03/10/17 14:15 Blood Blood Culture - Final 03/10/17 14:15 Blood Gram Stain - Final NO GROWTH AFTER 5 DAYS TEST NOT PERFORMED 01/18/17 19:27 Urine Urine Culture - Final Escherichia Coli 01/18/17 18:00 Blood Blood Culture - Final 01/18/17 18:00 Blood Gram Stain - Final NO GROWTH AFTER 5 DAYS TEST NOT PERFORMED Accession No. 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 no. Patient Name: BARBARA PASCUAL Pt. Address: [address] [place] [address]. Rec #: [id number] [place] [address]: Candice Burgess Pt CELL Order Location: [facility] : 1955 Female Age: 61 Order #: [id number] Reason for exam: abdominal pain CT Scan ABD PELVIS PO CONTRAST ONLY Exam Date: 04/06/17 This imaging exam was performed at [facility] EXAM: CT Abdomen and Pelvis Without Intravenous Contrast CLINICAL HISTORY: 61 years old, female; Pain; Abdominal pain; Generalized; Prior surgery; Surgery date: 6+ months; Surgery type: Kidney trasnplant. . Dm diverticulitis ckd. Anemia TECHNIQUE: Axial computed tomography images of the abdomen and pelvis without intravenous contrast. All CT scans at this facility use one or more dose reduction techniques, viz.: automated exposure control; ma/kV adjustment per patient size (including targeted exams where dose is matched to indication; i.e. head); or iterative reconstruction technique. Coronal and sagittal reformatted images were created and reviewed. COMPARISON: CT - ABD PELVIS PO CONTRAST ONLY 03/15/2017 6:10:22 PM FINDINGS: Limitations: Lack of intravenous contrast. Lower thorax: Minimal atelectasis/scarring. Coronary artery calcifications. ABDOMEN: Liver: Unremarkable. Gallbladder and bile ducts: Calcified gallstones. No ductal dilation. Pancreas: Unremarkable. No ductal dilation. Spleen: No splenomegaly. Adrenals: No mass. Kidneys and ureters: Atrophic alturas kidneys. Transplant kidney within RIGHT renal fossa. Few probable cysts within transplant kidney. No hydronephrosis. Stomach and bowel: Several diverticula within colon. Few giant diverticula within sigmoid colon with associated wall thickening and adjacent stranding. No obstruction. Appendix: Normal caliber. No inflammation. PELVIS: Bladder: Unremarkable. No stones. Reproductive: Unremarkable as visualized. ABDOMEN and PELVIS: Intraperitoneal space: No significant fluid collection. No free air. Bones/joints: Mild subacute compression fractures L1, L3 vertebral bodies. Mild degenerative changes of spine. Soft tissues: Unremarkable. Vasculature: Extensive atherosclerotic disease. No aneurysm. Lymph nodes: No pathologically enlarged lymph nodes. IMPRESSION: 1. Giant sigmoid diverticula with associated inflammation. Surgical consultation is recommended. 2. Stranding about bladder. Correlate with urinalysis to exclude cystitis. 3. Incidental/non-acute findings are described above. Dictated By: Gentry Young MD Dictated Date/Time: 04/06/172310 Signed By: Gentry Young MD Date Signed: [id number] Transcribed By: MEDHAT Transcribe Date/Time : 04/06/172310 [id number] Assessment & Plan (1) Abdominal pain Status: Acute (2) Diverticulitis Status: Acute - Assessment and Plan (Free Text) Assessment: A/P- 61 year old female with CKD s/p renal trasnplant, frequent UTIs with ESBL e.coli, diverticulitis who was recently d/c after being treated for e.coli UTI with 14 days of IV meropenem and c.diff with oral flagyl who is admitted now with LLQ abd pain and acute diverticulitis attack. she is afebrile and her wbc in normal values. Her UA is negative and urine cx prelim GNR but <10,000 hence (possible colonized ). stool c.diff AG- negative this admission. ABD Ct report- giant diverticula of the sigmoid with inflammation as per report. PLan- no evidence of UTi at this time since UA is negative and afebrile and normal wbc. symptoms are most likely from chronic diverticulits f/u with GI and surgical input. no objection to continuing with IV cipro and flagyl as initiated by the primary team for medical management of her diverticulitis. advise probiotic while on IV abx. may need surgical intervention since she continues to have frequent recurrent diverticulits attacks . Thank you for allowing me to take part in the care of this patient.
[2017-04-09 00:45] VITALS: RESP 20
[2017-04-09 06:31] LABS: ALB/GLOB RATIO 1.1 (1.0-2.1); ALKALINE PHOSPHATASE 69 U/L (38-126); ALT/SGPT 18 U/L (9-52); AST/SGOT 12 U/L (14-36); BILIRUBIN,TOTAL 0.2 mg/dl (0.2-1.3); BLOOD UREA NITROGEN 8 mg/dl (7-17); CALCIUM 10.6 mg/dL (8.4-10.2); CARBON DIOXIDE 25 mmol/L (22-30); CHLORIDE 106 mmol/L (98-107); GFR AFRICAN-AMERICAN > 60; GLUCOSE,RANDOM 84 mg/dL (65-105); POTASSIUM 4.2 MMOL/L (3.6-5.0); SODIUM 138 mmol/l (132-148); TOTAL PROTEIN 5.6 G/DL (6.3-8.2)
[2017-04-09 06:37] LABS: BASO % 0.1 % (0.0-2.0); EOS % 0.5 % (0.0-4.0); HEMATOCRIT 31.8 % (34.0-47.0); LYMPH # 1.9 K/uL (1.0-4.3); LYMPH % 37.9 % (20.0-40.0); MEAN CELL VOLUME 89.7 fl (81.0-99.0); MEAN CORPUSCULAR HEMOGLOBIN 28.9 pg (27.0-31.0); MEAN CORPUSCULAR HGB CONC 32.2 g/dL (33.0-37.0); MEAN PLATELET VOLUME 7.3 fl (7.2-11.7); MONO # 0.5 K/uL (0.0-0.8); MONO % 9.5 % (0.0-10.0); NEUT # 2.6 K/uL (1.8-7.0); NRBC % 0.1 % (0.0-0.0); RED CELL DISTRIBUTION WIDTH 15.3 % (11.5-14.5); WHITE BLOOD COUNT 5.1 K/uL (4.8-10.8)
[2017-04-09 08:42] VITALS: BP 137/70; TEMP 98.3; O2SAT 100
[2017-04-09] MEDS: Lactobacillus Acidophilus 500 MU Cap PO SCH ×2 (08:47→16:31)
[2017-04-09 08:52] VITALS: PULSE 53
[2017-04-09] MEDS ORDERED: Pantoprazole 40 mg EC Tab PO SCH (09:00)
--- NOTE | 2017-04-09 09:16 | CP.PCM.DIS ---
Provider - Provider Date of Admission: 04/07/17 12:00 Attending physician: Ryan Fried MD Consults: General surgery consulted, Dr. Raul RIGGS consulted, Dr. Yee Time Spent in preparation of Discharge (in minutes): 30 Diagnosis - Discharge Diagnosis (1) Acute diverticulitis Status: Acute Comment: improving. Tolerating PO. C/w PO antibiotics x 10 days and f/u as outpatient. (2) Renal transplant, status post Status: Chronic Comment: stable. GFR >60. c/w outpatient f/u. (3) Anemia Status: Chronic (4) HTN (hypertension) Status: Chronic Hospital Course - Lab Results Lab Results: Micro Results 04/06/17 19:00 Urine,Clean Catch Urine Culture - Final Gram Negative Miles Most Recent Lab Values WBC 5.1 K/uL (4.8-10.8) 04/09/17 05:45 RBC 3.54 Mil/uL (3.80-5.20) L 04/09/17 05:45 Hgb 10.2 g/dL (12.0-16.0) L 04/09/17 05:45 Hct 31.8 % (34.0-47.0) L 04/09/17 05:45 MCV 89.7 fl (81.0-99.0) 04/09/17 05:45 MCH 28.9 pg (27.0-31.0) 04/09/17 05:45 MCHC 32.2 g/dL (33.0-37.0) L 04/09/17 05:45 RDW 15.3 % (11.5-14.5) H 04/09/17 05:45 Plt Count 215 K/uL (130-400) 04/09/17 05:45 MPV 7.3 fl (7.2-11.7) 04/09/17 05:45 Neut % (Auto) 52.0 % (50.0-75.0) 04/09/17 05:45 Lymph % (Auto) 37.9 % (20.0-40.0) 04/09/17 05:45 [place] % (Auto) 9.5 % (0.0-10.0) 04/09/17 05:45 Eos % (Auto) 0.5 % (0.0-4.0) 04/09/17 05:45 Baso % (Auto) 0.1 % (0.0-2.0) 04/09/17 05:45 Neut # 2.6 K/uL (1.8-7.0) 04/09/17 05:45 Lymph # 1.9 K/uL (1.0-4.3) 04/09/17 05:45 [place] # 0.5 K/uL (0.0-0.8) 04/09/17 05:45 Eos # 0.0 K/uL (0.0-0.7) 04/09/17 05:45 Baso # 0.0 K/uL (0.0-0.2) 04/09/17 05:45 pO2 34 mm/Hg (30-55) 04/06/17 19:58 VBG pH 7.48 (7.32-7.43) H 04/06/17 19:58 VBG pCO2 45 mmHg (40-60) 04/06/17 19:58 VBG HCO3 31.1 mmol/L 04/06/17 19:58 VBG Total CO2 34.9 mmol/L (22-28) H 04/06/17 19:58 VBG O2 Sat (Calc) 75.0 % (40-65) H 04/06/17 19:58 VBG Base Excess 8.8 mmol/L (0.0-2.0) H 04/06/17 19:58 VBG Potassium 3.6 mmol/L (3.6-5.2) 04/06/17 19:58 Sodium 138.0 mmol/L (132-148) 04/06/17 19:58 Chloride 104.0 mmol/L (98-107) 04/06/17 19:58 Glucose 119 mg/dL (65-105) H 04/06/17 19:58 Lactate 0.7 mmol/L (0.7-2.1) 04/06/17 19:58 FiO2 21.0 % 04/06/17 19:58 Sodium 138 mmol/l (132-148) 04/09/17 05:45 Potassium 4.2 MMOL/L (3.6-5.0) 04/09/17 05:45 Chloride 106 mmol/L (98-107) 04/09/17 05:45 Carbon Dioxide 25 mmol/L (22-30) 04/09/17 05:45 Anion Gap 11 (10-20) 04/09/17 05:45 BUN 8 mg/dl (7-17) 04/09/17 05:45 Creatinine 0.9 mg/dL (0.7-1.2) 04/09/17 05:45 Est GFR ( Amer) > 60 04/09/17 05:45 Est GFR (Non-Af Amer) > 60 04/09/17 05:45 POC Glucose (mg/dL) 79 mg/dL (65-110) 04/09/17 07:05 Random Glucose 84 mg/dL (65-105) 04/09/17 05:45 Calcium 10.6 mg/dL (8.4-10.2) H 04/09/17 05:45 Total Bilirubin 0.2 mg/dl (0.2-1.3) 04/09/17 05:45 AST 12 U/L (14-36) L 04/09/17 05:45 ALT 18 U/L (9-52) 04/09/17 05:45 Alkaline Phosphatase 69 U/L (38-126) 04/09/17 05:45 Troponin I < 0.0120 ng/mL (0.00-0.120) 04/06/17 17:15 Total Protein 5.6 G/DL (6.3-8.2) L 04/09/17 05:45 Albumin 2.9 g/dL (3.5-5.0) L 04/09/17 05:45 Globulin 2.7 gm/dL (2.2-3.9) 04/09/17 05:45 Albumin/Globulin Ratio 1.1 (1.0-2.1) 04/09/17 05:45 Amylase 122 U/L (30-110) H D 04/06/17 17:15 Lipase 18 U/L (23-300) L 04/06/17 17:15 Venous Blood Potassium 3.6 mmol/L (3.6-5.2) 04/06/17 19:58 Urine Color Yellow (YELLOW) 04/06/17 05:18 Urine Clarity Slighty-cloudy (Clear) 04/06/17 05:18 Urine pH 6.0 (5.0-8.0) 04/06/17 05:18 Ur Specific [place] 1.014 (1.003-1.030) 04/06/17 05:18 Urine Protein Negative mg/dL (NEGATIVE) 04/06/17 05:18 Urine Glucose (UA) Neg mg/dL (Normal) 04/06/17 05:18 Urine Ketones Negative mg/dL (NEGATIVE) 04/06/17 05:18 Urine Blood Negative (NEGATIVE) 04/06/17 05:18 Urine Nitrate Negative (NEGATIVE) 04/06/17 05:18 Urine Bilirubin Negative (NEGATIVE) 04/06/17 05:18 Urine Urobilinogen 0.2-1.0 mg/dL (0.2-1.0) 04/06/17 05:18 Ur Leukocyte Esterase Neg Benigno/uL (Negative) 04/06/17 05:18 Urine RBC (Auto) 2 /hpf (0-3) 04/06/17 05:18 Urine Microscopic WBC 3 /hpf (0-5) 04/06/17 05:18 Ur Squamous Epith Cells 2 /hpf (0-5) 04/06/17 05:18 Calcium Oxalate Crystal Few /hpf (<OCC) H 04/06/17 05:18 Hyaline Casts 0-2 /hpf (0-2) 04/06/17 05:18 C. difficile Ag & Toxin Negative (NEGATIVE) 04/07/17 09:45 - Hospital Course Hospital Course: 61 yo F with PMHx diverticulosis, CKD s/p Renal transplant 2005, ESBL UTI admitted with recurrent acute diverticulitis episode. Abdomen CT scan showed Giant sigmoid diverticula with associated inflammation, no significant fluid collection, no free air or abscess. Patient was manged with NPO status, IV fluids, antibiotics ( ciprofloxacin and flagyl) and pain control. General surgery was consulted for evaluation and they did not recommend surgical intervention at this time and f/u as outpatient to determine if elective surgery is viable option. Repeat C-diff toxin was negative. Also ID was consulted because patient h/o recurrent UTI (ESBL in the past), and even though we have a negative urinalysis, urine culture showed gram negative miles. ID suggested to continuing with current medical management, and no other recommendations for antibiotics was given. Patient has been afebrile during admission, and no leukocytosis. LLQ abdominal pain has improved, and she has been tolerating PO since the last 2 days. Patient is stable and cleared from general surgery and ID stand point to be discharged today on oral antibiotics and will f/u with PMD, GI for recommended colonoscopy, and general surgery for possible surgical management. Will require colonoscopy as outpatient after she completes 10 days of oral antibiotics. Will require Urology referral as outpatient because recurrent UTI. Home medications Amlodipine 5 mg PO daily Sensipar 30 mg PO daily Mycophenolate 250 mg PO BID Prednisone 5 mg PO daily Tacrolimus 5 mg PO BID Ciprofloxacin 500 mg PO Q12 New for 10 days Flagyl 500 mg PO Q8 New for 10 days Probiotic PO 1 cap BID New while in Abx Percocet 5/325 mg PO Q8 # 15 tablets New on admission Requires: GI, for colonoscopy, Urology referral for recurrent UTI, General surgery referral after colonoscopy - Date & Time of H&P Date of H&P: 04/07/17 Time of H&P: 01:25 Discharge Exam - Head Exam Head Exam: ATRAUMATIC - ENT Exam ENT Exam: Mucous Membranes Moist - Respiratory Exam Respiratory Exam: Clear to PA & Lateral, NORMAL BREATHING PATTERN - Cardiovascular Exam Cardiovascular Exam: REGULAR RHYTHM, +S1, +S2 - GI/Abdominal Exam GI & Abdominal Exam: Normal Bowel Sounds, Soft, Tenderness (mild tender to palpation of LLQ, no rebound tenderness noted). absent: Distended, Firm, Guarding - Extremities Exam Extremities exam: normal inspection Additional comments: no calves tenderness, no edema in lower extremities - Neurological Exam Neurological exam: Alert, Oriented x3 Discharge Plan - Discharge Medications Prescriptions: Ciprofloxacin [Cipro] 500 mg PO Q12 10 Days #20 tab Lactobacillus Acidophilus [Bacid Acidophilus] 1 cap PO BID #30 cap metroNIDAZOLE [Flagyl] 500 mg PO Q8H 10 Days #30 tab - Follow Up Plan Condition: STABLE Disposition: HOME/ ROUTINE Instructions: Diverticulosis (DC), Acute Abdominal Pain (DC) Additional Instructions: F/u with PMD, Dr. Miner, at [facility] on 04/24/17 at 10 am F/u with GI, Dr. Padilla, on 04/15/17 at 2 PM for consultation and possible scheduling for colonoscopy in 4-6 weeks or later Referrals: Valerie LUNA,MD Sylvia [Medical Doctor] - Ryan Fried MD [Family Provider] -
--- NOTE | 2017-04-09 09:28 | CP.PCM.PN ---
Subjective - Date & Time of Evaluation Date of Evaluation: 04/09/17 Time of Evaluation: 06:30 - Subjective Subjective: General Surgery Pt S&E at bedside this AM. No acute events overnight. Pt tolerating diet. denies N/V CP/SOB F/C Objective - Vital Signs/Intake and Output Vital Signs (last 24 hours): Temp Pulse Resp BP Pulse Ox 98.3 F 53 L 20 137/70 100 04/09/17 08:42 04/09/17 08:48 04/09/17 08:42 04/09/17 08:48 04/09/17 08:42 - Medications Medications: Current Medications Amlodipine Besylate (Norvasc) 5 mg PO DAILY ON LICENSE OF [facility] Last Admin: 04/09/17 08:48 Dose: 5 mg Cinacalcet (Sensipar) 30 mg PO DAILY ON LICENSE OF [facility] Last Admin: 04/09/17 08:51 Dose: 30 mg Ciprofloxacin (Cipro) 500 mg PO Q12 ON LICENSE OF [facility] Last Admin: 04/09/17 08:51 Dose: 500 mg Heparin Sodium (Porcine) (Heparin) 5,000 units SC Q12 ON LICENSE OF [facility] PRN Reason: Protocol Last Admin: 04/09/17 08:51 Dose: 5,000 units Home Med (Patient's Own Medication) 1 unit PO BID ON LICENSE OF [facility] Last Admin: 04/09/17 08:48 Dose: 1 unit Ketorolac Tromethamine (Toradol) 15 mg IM Q6 PRN PRN Reason: Pain, moderate (4-7) Lactobacillus Acidophilus (Bacid Acidophilus) 1 cap PO BID ON LICENSE OF [facility] Last Admin: 04/09/17 08:47 Dose: 1 cap Metronidazole (Flagyl) 500 mg PO Q8H ON LICENSE OF [facility] Last Admin: 04/09/17 03:19 Dose: 500 mg Mycophenolate Mofetil (Cellcept Cap) 250 mg PO BID ON LICENSE OF [facility] Last Admin: 04/09/17 08:51 Dose: 250 mg Ondansetron HCl (Zofran Tab) 4 mg PO Q6 PRN PRN Reason: Nausea/Vomiting Pantoprazole Sodium (Protonix Ec Tab) 40 mg PO DAILY ON LICENSE OF [facility] Last Admin: 04/09/17 08:48 Dose: 40 mg Prednisone (Prednisone Tab) 5 mg PO DAILY ON LICENSE OF [facility] Last Admin: 04/09/17 08:48 Dose: 5 mg - Labs Labs: 04/09/17 05:45 04/09/17 05:45 - Constitutional Appears: Non-toxic, No Acute Distress - Eye Exam Eye Exam: EOMI. absent: Scleral icterus - ENT Exam ENT Exam: Mucous Membranes Moist - Respiratory Exam Respiratory Exam: NORMAL BREATHING PATTERN. absent: Accessory Muscle Use, Rales , Rhonchi, Respiratory Distress - Cardiovascular Exam Cardiovascular Exam: +S1, +S2. absent: Bradycardia, Tachycardia - GI/Abdominal Exam GI & Abdominal Exam: Soft. absent: Distended, Firm, Guarding, Rigid, Tenderness - Extremities Exam Extremities Exam: absent: Calf Tenderness - Back Exam Back Exam: absent: CVA tenderness (L), CVA tenderness (R) - Neurological Exam Neurological Exam: Alert, Awake, Oriented x3 - Skin Skin Exam: Dry, Warm Assessment and Plan - Assessment and Plan (Free Text) Assessment: 61F w/ acute on chronic diverticulitis Plan: - Pt stable from surgical standpoint - no surgical intervention at this time - can follow up as outpatient to determine if elective surgery is viable option d/w attending [employer] [place]1
[2017-04-09] MEDS ORDERED: Oxycodone/Acetaminophen 5/325 mg Tab PO ONE (14:05)
== END 2017-04-09 16:47 | disposition home health service (06) | DRG 183 ==
LOC: H.ER 15:33 → H.ERHOLD 04-07 00:55 → H.MEDSURG1 04-07 02:40 → OBSVTOIN 04-07 12:00
PROVIDERS: ADMIT Family Medicine; ATTEND Family Medicine
DX: K57.32 Diverticulitis of large intestine without perforation or abscess without bleeding (principal); Z94.0 Kidney transplant status; I10 Essential (primary) hypertension; E83.52 Hypercalcemia; E11.9 Type 2 diabetes mellitus without complications; D63.1 Anemia in chronic kidney disease; Z88.1 Allergy status to other antibiotic agents; Z91.041 Radiographic dye allergy status; M54.5 Low back pain; E78.5 Hyperlipidemia, unspecified; E78.00 Pure hypercholesterolemia, unspecified

== ENCOUNTER 2017-04-14 13:46 | Emergency (ER) | payer MEDICAID ==
[2017-04-14 13:46] VITALS: BMI 15.7
[2017-04-14 13:49] VITALS: BP 118/70; PULSE 91; RESP 19; TEMP 99.1; O2SAT 100
--- NOTE | 2017-04-14 14:19 | ED PDOC ---
HPI: Abdomen Time Seen by Provider: 04/14/17 13:51 Chief Complaint (Nursing): GI Problem Chief Complaint (Provider): abd pain History Per: Patient Additional Complaint(s): 61-year-old female with history of chronic abdominal pain for several months including diagnosis of diverticulitis and ulcerative colitis presents to emergency department with nausea and vomiting that started earlier today. Patient denies fever or chills. Patient was admitted to hospital last week and was discharged 2 days later with prescriptions for Cipro and Flagyl for diverticulitis. Patient was seen at that time by surgery and was deemed a nonsurgical candidate. Patient states she has been compliant with the Cipro but has not been taking the Flagyl. She states that since vomiting this morning she has not been able to keep down any liquids or solids. Patient also complains of flare up of low back pain. She denies any recent fall or trauma. No meds taken for pain relief. Past Medical History Reviewed: Historical Data Vital Signs: Last Vital Signs Temp 99.1 F 04/14/17 13:47 Pulse 91 H 04/14/17 13:47 Resp 19 04/14/17 13:47 BP 118/70 04/14/17 13:47 Pulse Ox 100 04/14/17 17:02 - Medical History PMH: Anemia, Arthritis, Diabetes, Diverticulitis, HTN, Hypercholesterolemia, Chronic Kidney Disease - Surgical History Surgical History: - Family History Family History: States: No Known Family Hx - Living Arrangements Living Arrangements: With Family - Social History Current smoker - smoking cessation education provided: No Alcohol: None Drugs: Denies - Home Medications Home Medications: Ambulatory Orders Medication Instructions Recorded Tacrolimus [Prograf] 5 mg PO BID 01/18/17 amLODIPine [Norvasc] 5 mg PO DAILY 01/18/17 predniSONE [predniSONE Tab] 5 mg PO DAILY 01/18/17 Mycophenolate [Cellcept Cap] 250 mg PO BID 03/10/17 Cinacalcet [Sensipar] 30 mg PO DAILY 04/06/17 Ciprofloxacin [Cipro] 500 mg PO Q12 10 Days #20 tab 04/09/17 Lactobacillus Acidophilus [Bacid 1 cap PO BID #30 cap 04/09/17 Acidophilus] metroNIDAZOLE [Flagyl] 500 mg PO Q8H 10 Days #30 tab 04/09/17 oxyCODONE/Acetaminophen [Percocet 1 ea PO Q8 PRN #15 tab 04/09/17 5/325 mg Tab] Lidoderm Patch Removal 1 unit TOP DAILY #30 ea 04/14/17 Ondansetron [Zofran Odt] 4 mg PO ASDIR PRN #20 odt 04/14/17 - Allergies Allergies/Adverse Reactions: Allergies Allergy/AdvReac Type Severity Reaction Status Date / Time cefazolin Allergy ITCHING Verified 04/14/17 13:47 iodine Allergy ITCHING Verified 04/14/17 13:47 vancomycin Allergy ITCHING Verified 04/14/17 13:47 Review of Systems ROS Statement: Except As Marked, All Systems Reviewed And Found Negative Constitutional: Negative for: Fever Cardiovascular: Negative for: Chest Pain Gastrointestinal: Positive for: Nausea, Vomiting, Abdominal Pain, Diarrhea Physical Exam - Reviewed Nursing Documentation Reviewed: Yes Vital Signs Reviewed: Yes - Physical Exam Appears: Positive for: Non-toxic, No Acute Distress. Negative for: Well ( cachectic appearing) Skin: Negative for: Rash Eye Exam: Positive for: Normal appearance Cardiovascular/Chest: Positive for: Regular Rate, Rhythm Respiratory: Positive for: Normal Breath Sounds Gastrointestinal/Abdominal: Positive for: Bowel Sounds (normoactive in all 4 quadrants), Soft. Negative for: Tenderness, Distended, Guarding, Rebound Back: Positive for: Vertebral Tenderness (lumbar). Negative for: L CVA Tenderness, R CVA Tenderness Extremity: Negative for: Pedal Edema Neurologic/Psych: Positive for: Alert, Oriented - Laboratory Results Result Diagrams: 04/14/17 15:10 04/14/17 15:10 - ECG O2 Sat by Pulse Oximetry: 100 Pulse Ox Interpretation: Normal Medical Decision Making Medical Decision Makin61 year old with nausea, vomiting and abd pain, also with low back pain Plan: CBC CMP Lipase IVF IV zofran IV toradol Potassium is low at 3.3, oral replacement of 20 mEq of K-dur administered. Patient feels better, she is tolerating liquids at bedside. Patient still complaining of lower back pain, Lidoderm patch was applied to lower back. Prescription for Lidoderm patch provided along with prescription for Zofran. Patient has follow up tomorrow with lock technician. She is stable for discharge. Disposition - Clinical Impression Clinical Impression: Nausea & vomiting, Back pain - Patient ED Disposition Is Patient to be Admitted: No Counseled Patient/Family Regarding: Studies Performed, Diagnosis, Need For Followup, Rx Given - Disposition Referrals: Valerie LUNA,MD Sylvia [Medical Doctor] - Disposition: Routine/Home Disposition Time: 17:02 Condition: STABLE Additional Instructions: Follow bland diet and drink plenty of fluids. Take prescription meds as directed. Follow-up as scheduled tomorrow with lock technician. Prescriptions: Lidoderm Patch Removal 1 unit TOP DAILY #30 ea Ondansetron [Zofran Odt] 4 mg PO ASDIR PRN #20 odt PRN Reason: Nausea/Vomiting Instructions: Acute Nausea and Vomiting (ED), Back Pain (ED) Forms: [employer] (Honduran) Results - Lab Results Lab Results: 04/14/17 04/14/17 15:10 15:10 WBC 8.1 D RBC 3.51 L Hgb 10.0 L Hct 31.6 L MCV 90.0 MCH 28.4 MCHC 31.6 L RDW 15.9 H Plt Count 180 MPV 7.3 Neut % (Auto) 81.3 H Lymph % (Auto) 13.3 L [place] % (Auto) 5.2 Eos % (Auto) 0.0 Baso % (Auto) 0.2 Neut # 6.6 Lymph # 1.1 [place] # 0.4 Eos # 0.0 Baso # 0.0 Sodium 138 Potassium 3.3 L Chloride 106 Carbon Dioxide 22 Anion Gap 13 BUN 12 Creatinine 0.7 Est GFR ( Amer) > 60 Est GFR (Non-Af Amer) > 60 Random Glucose 95 Calcium 9.9 Total Bilirubin 0.4 AST 19 ALT 16 Alkaline Phosphatase 69 Total Protein 5.9 L Albumin 3.1 L Globulin 2.8 Albumin/Globulin Ratio 1.1 Lipase 37
[2017-04-14] MEDS ORDERED: Sodium Chloride 0.9% 1,000 ML IV STA (14:36)
[2017-04-14 15:22] LABS: BASO % 0.2 % (0.0-2.0); HEMATOCRIT 31.6 % (34.0-47.0); LYMPH # 1.1 K/uL (1.0-4.3); LYMPH % 13.3 % (20.0-40.0); MEAN CORPUSCULAR HEMOGLOBIN 28.4 pg (27.0-31.0); MEAN CORPUSCULAR HGB CONC 31.6 g/dL (33.0-37.0); MEAN PLATELET VOLUME 7.3 fl (7.2-11.7); MONO # 0.4 K/uL (0.0-0.8); MONO % 5.2 % (0.0-10.0); NEUT # 6.6 K/uL (1.8-7.0); NEUT % 81.3 % (50.0-75.0); RED CELL DISTRIBUTION WIDTH 15.9 % (11.5-14.5)
[2017-04-14 15:23] LABS: WHITE BLOOD COUNT 8.1 K/uL (4.8-10.8)
[2017-04-14 15:51] LABS: ALB/GLOB RATIO 1.1 (1.0-2.1); ALKALINE PHOSPHATASE 69 U/L (38-126); ALT/SGPT 16 U/L (9-52); AST/SGOT 19 U/L (14-36); BILIRUBIN,TOTAL 0.4 mg/dl (0.2-1.3); BLOOD UREA NITROGEN 12 mg/dl (7-17); CALCIUM 9.9 mg/dL (8.4-10.2); CARBON DIOXIDE 22 mmol/L (22-30); CHLORIDE 106 mmol/L (98-107); GFR AFRICAN-AMERICAN > 60; GLUCOSE,RANDOM 95 mg/dL (65-105); LIPASE 37 U/L (23-300); POTASSIUM 3.3 MMOL/L (3.6-5.0); SODIUM 138 mmol/l (132-148); TOTAL PROTEIN 5.9 G/DL (6.3-8.2)
[2017-04-14] MEDS ORDERED: Potassium Chloride 20 mEq ER Tab PO STA (16:22)
[2017-04-14] MEDS ORDERED: Potassium Chloride 20 mEq ER Tab PO ONE (16:24)
== END 2017-04-14 19:49 | disposition home or self-care (01) ==
LOC: H.ER 13:46
DX: R11.2 Nausea with vomiting, unspecified (principal); M54.9 Dorsalgia, unspecified; E11.22 Type 2 diabetes mellitus with diabetic chronic kidney disease; E78.00 Pure hypercholesterolemia, unspecified; G89.29 Other chronic pain; I12.9 Hypertensive chronic kidney disease with stage 1 through stage 4 chronic kidney disease, or unspecified chronic kidney disease; K51.90 Ulcerative colitis, unspecified, without complications
CPT/HCPCS: 80053; 82948; 83690; 85025; 96374; 99282; J1885; J2405; J7040

== ENCOUNTER 2017-04-20 10:10 | Inpatient (IN) | payer MEDICAID ==
[2017-04-20 10:10] VITALS: BMI 15.7
[2017-04-20] MEDS ORDERED: Oxycodone/Acetaminophen 5/325 mg Tab PO STA (10:41)
[2017-04-20] MEDS ORDERED: Oxycodone/Acetaminophen 5/325 mg Tab ONE (11:10)
--- NOTE | 2017-04-20 13:09 | ED PDOC ---
HPI: Back Time Seen by Provider: 04/20/17 10:17 Chief Complaint (Nursing): Back Pain Chief Complaint (Provider): Back Pain History Per: Patient History/Exam Limitations: no limitations Onset/Duration Of Symptoms: Mins (prior to arrival) Current Symptoms Are (Timing): Still Present Additional Complaint(s): Leticia Poon is a 61 year old female with previous medical history of hypertension, arthritis, diabetes and hypercholesterolemia, who presents to the emergency department for an evaluation of right lower back pain status post falling off her couch on her right side prior to arrival. Denied any head trauma , loss of consciousness or ambulating well due to pain. PMD: Demian Fried MD Past Medical History Reviewed: Historical Data, Nursing Documentation, Vital Signs - Medical History PMH: Anemia, Arthritis, Diabetes, Diverticulitis, HTN, Hypercholesterolemia, Chronic Kidney Disease Denies: HIV - Surgical History Surgical History: - Family History Family History: States: Unknown Family Hx - Social History Current smoker - smoking cessation education provided: No Ex-Smoker (has not smoked in the last 12 months): No Alcohol: None Drugs: Denies - Home Medications Home Medications: Ambulatory Orders Medication Instructions Recorded Tacrolimus [Prograf] 5 mg PO BID 01/18/17 amLODIPine [Norvasc] 5 mg PO DAILY 01/18/17 predniSONE [predniSONE Tab] 5 mg PO DAILY 01/18/17 Mycophenolate [Cellcept Cap] 250 mg PO BID 03/10/17 Cinacalcet [Sensipar] 30 mg PO DAILY 04/06/17 Ciprofloxacin [Cipro] 500 mg PO Q12 10 Days #20 tab 04/09/17 Lactobacillus Acidophilus [Bacid 1 cap PO BID #30 cap 04/09/17 Acidophilus] metroNIDAZOLE [Flagyl] 500 mg PO Q8H 10 Days #30 tab 04/09/17 oxyCODONE/Acetaminophen [Percocet 1 ea PO Q8 PRN #15 tab 04/09/17 5/325 mg Tab] Lidoderm Patch Removal 1 unit TOP DAILY #30 ea 04/14/17 Ondansetron [Zofran Odt] 4 mg PO ASDIR PRN #20 odt 04/14/17 Acetaminophen with Codeine 1 tab PO Q6H PRN #10 tab 04/20/17 [Tylenol with Codeine No. 3 300 mg-30 mg] - Allergies Allergies/Adverse Reactions: Allergies Allergy/AdvReac Type Severity Reaction Status Date / Time cefazolin Allergy ITCHING Verified 04/14/17 13:47 iodine Allergy ITCHING Verified 04/14/17 13:47 vancomycin Allergy ITCHING Verified 04/14/17 13:47 Review of Systems ROS Statement: Except As Marked, All Systems Reviewed And Found Negative Musculoskeletal: Positive for: Back Pain (lower right) Neurological: Negative for: Other (head trauma/LOC/ambulation) Physical Exam - Reviewed Nursing Documentation Reviewed: Yes Vital Signs Reviewed: Yes - Physical Exam Appears: Positive for: Well, Non-toxic, Uncomfortable, In Acute Distress ( mildly painful) Head Exam: Positive for: ATRAUMATIC, NORMAL INSPECTION, NORMOCEPHALIC Cardiovascular/Chest: Positive for: Regular Rate, Rhythm. Negative for: Chest Non Tender Respiratory: Positive for: Normal Breath Sounds, Accessory Muscle Use. Negative for: Decreased Breath Sounds, Respiratory Distress Back: Positive for: Vertebral Tenderness (right paraspinal lumbar). Negative for: Normal Inspection, Decreased ROM, Other (ecchymosis or edema) Extremity: Positive for: Normal ROM, Tenderness (right posterior hip), Other ( superfical abrasions to distal right elbow). Negative for: Deformity, Swelling (or ecchymosis) Neurologic/Psych: Positive for: Alert, Oriented - Progress ED Course And Treament: Pt reports unrelieved pain, unable to ambulate. Re-evaluation Time: 15:00 Condition: Unchanged Medical Decision Making Medical Decision Making: Initial Impression: Musculoskeletal pain; contusions Initial Plan: * Xray lumbar spine * Percocet 5/325 PO * Xray hip (right) Scribe Attestation: Documented by Evie Menon, acting as a scribe for Ellie Goddard MD. Provider Scribe Attestation: All medical record entries made by the Scribe were at my direction and personally dictated by me. I have reviewed the chart and agree that the record accurately reflects my personal performance of the history, physical exam, medical decision making, and the department course for this patient. I have also personally directed, reviewed, and agree with the discharge instructions and disposition. Disposition - Clinical Impression Clinical Impression: Wedge compression fracture of first lumbar vertebra, Compression fracture of third lumbar vertebra, Intractable back pain - Patient ED Disposition Is Patient to be Admitted: Yes - Disposition Referrals: [facility] [place] [Outside] [facility] [Outside] Disposition: Routine/Home Disposition Time: 15:00 Condition: STABLE Prescriptions: Acetaminophen with Codeine [Tylenol with Codeine No. 3 300 mg-30 mg] 1 tab PO Q6H PRN #10 tab PRN Reason: Pain, Severe (8-10) Forms: [employer] (Icelandic) Print Language: MALAWIAN - Pt Status Changed To: Hospital Disposition Of: Observation - POA Present On Arrival: Falls Or Trauma
--- NOTE | 2017-04-20 14:58 | RAD ---
PROCEDURE: Right Hip Radiographs. HISTORY: Fell off couch COMPARISON: None. FINDINGS: BONES: Diffuse osteopenia suggests osteoporosis. No displaced fractures identified at the right hip joint with the pelvic ring appearing grossly intact. Vascular calcification about the medial thigh and groin soft tissues with surgical clips identified in the inferior right pelvis soft tissues. No suspicious focal lytic or blastic change. Degenerate changes seen at the right hip joint. JOINTS: As above. SOFT TISSUES: As above. OTHER FINDINGS: None. IMPRESSION: No acute fracture or dislocation identified. Diffuse osteopenia suggests osteoporosis.
--- NOTE | 2017-04-20 15:03 | RAD ---
PROCEDURE: Radiographs of the Lumbar Spine. HISTORY: Fell off couch COMPARISON: And pelvis CT without contrast dated 03/10/2017. FINDINGS: BONES: There is a mild L1 anterior wedge compression fracture identified which is unchanged greater prior abdomen pelvis CT dated 04/06/2017 but occurred after prior abdomen pelvis CT 03/20/2017. A chronic compression fracture is mild at L3. Multilevel lumbar spondylosis remains advanced. No spondylolisthesis. Prominent osteopenia suggests osteoporosis once again. DISC SPACES: Loss of disc height at L3-4 is mild. Remaining intervertebral disc spaces remain normal OTHER FINDINGS: None. IMPRESSION: A mild L1 anterior wedge compression fractures again identified as compared prior and pelvis CT dated 04/06/2017 but was not present on prior CT 03/20/2017 as discussed above. No spondylolisthesis. Chronic L3 compression fracture again identified.
--- NOTE | 2017-04-20 15:59 | CP.PCM.HP ---
History of Present Illness - History of Present Illness History of Present Illness: 61 y/o female with CKD s/p Renal transplant 11 years ago, frequent UTIs with ESBL, DM type 2 in no current medications, Diverticulosis with frequent episodes of diverticulitis, admitted recently on 04/07/17 for diverticulitis, treated with IV abx and discharged home on 04/09/17 on PO flagyl and cipro x 10 days. As per patient, she finished the abx yesterday. She presents to ED c/o right lower back pain that started today after she fell off her couch at home. The pain is constant, 8/10, no radiating to LE, aggravated with movements and ambulation, no associated with tingling, numbness or weakness of lower extremities. However patient reports a numbness sensation from her ankles to her feet since 1 week ago. Denies bladder or bowel incontinence. Denies head trauma, other joint pain, LOC .Denies fevers, chills, diarrheas, blood in urine or stools, urinary symptoms. BM was today morning. Patient lives with her daughter, but her daughter needs assistance to take care of her. PMD: Dr. Jaleesa Miner at [facility] Nephro: Dr. Glez PMH: Anemia, CKD ( formally on HD but not after receiving Right kidney transplant in 2004), HTN, DM2, HLD, , HX of falls, Diverticulosis with recurrent episodes of diverticulitis, Recurrent UTI. 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, Currently living at home with daughter, No tobacco, NO alcohol, NO illicit drug use Family Hx: Aunt (Asthma), Dad (Renal Failure), Brother x2 ( Healthy) ED course: VS wnl CBC, CMP, UA Percocet PO once Present on Admission - Present on Admission Any Indicators Present on Admission: No History of DVT/PE: No History of Uncontrolled Diabetes: No Urinary Catheter: No Decubitus Ulcer Present: No Review of Systems - Review of Systems All systems: reviewed and no additional remarkable complaints except (asper HPI) Past Patient History - Infectious Disease Hx of Infectious Diseases: C.diff - Past Medical History & Family History Past Medical History?: Yes - Past Social History Alcohol: None Drugs: Denies - CARDIAC Hx Hypercholesterolemia: Yes Hx Hypertension: Yes - PULMONARY Hx Respiratory Disorders: No - NEUROLOGICAL Hx Neurological Disorder: No - HEENT Hx HEENT Problems: No - RENAL Hx Chronic Kidney Disease: Yes - ENDOCRINE/METABOLIC Hx Endocrine Disorders: Yes Hx Diabetes Mellitus Type 2: Yes - HEMATOLOGICAL/ONCOLOGICAL Hx Anemia: Yes Hx Human Immunodeficiency Virus (HIV): No - INTEGUMENTARY Hx Dermatological Problems: No - MUSCULOSKELETAL/RHEUMATOLOGICAL Hx Arthritis: Yes - GASTROINTESTINAL Hx Diverticulitis: Yes - GENITOURINARY/GYNECOLOGICAL Hx Genitourinary Disorders: Yes - PSYCHIATRIC Hx Psychophysiologic Disorder: No Hx Substance Use: No - SURGICAL HISTORY Hx Surgeries: Yes Hx Arteriovenous Shunt: Yes Hx Section: Yes (x2) Hx Vascular Access Device: Yes Other/Comment: RIGHT KIDNEY TRANSPLANT - ANESTHESIA Hx Anesthesia: Yes Hx Anesthesia Reactions: No Hx Malignant Hyperthermia: No Meds Allergies/Adverse Reactions: Allergies Allergy/AdvReac Type Severity Reaction Status Date / Time cefazolin Allergy ITCHING Verified 04/14/17 13:47 iodine Allergy ITCHING Verified 04/14/17 13:47 vancomycin Allergy ITCHING Verified 04/14/17 13:47 Physical Exam - Constitutional Appears: No Acute Distress - ENT Exam ENT Exam: Mucous Membranes Moist - Respiratory Exam Respiratory Exam: Clear to Auscultation Bilateral, NORMAL BREATHING PATTERN. absent: Rales, Rhonchi, Wheezes, Respiratory Distress - Cardiovascular Exam Cardiovascular Exam: REGULAR RHYTHM, +S1, +S2 - GI/Abdominal Exam GI & Abdominal Exam: Normal Bowel Sounds, Soft, Tenderness (very mild tender to palpation of LLQ, no rebound tenderness). absent: Distended, Firm, Guarding, Rebound, Rigid - Extremities Exam Extremities exam: Positive for: normal inspection. Negative for: calf tenderness, pedal edema - Back Exam Additional comments: tenderness to palpation over lumbar spine, no ecchymosis or deformities of other joints noted. - Neurological Exam Neurological exam: Alert, Oriented x3 Results - Labs Result Diagrams: 04/20/17 16:44 Assessment & Plan - Assessment and Plan (Free Text) Assessment: 61 y/o female with CKD s/p Renal transplant, diverticulosis w/ recurrent diverticulitis, Chronic anemia, being admitted s/p fall with intractable right lower back pain. Plan: Intractable Right lower back pain -MedSurg -s/p fall, no evidence of lower back spine radiculopathy -no evidence of bladder or bowel incontinence -Pain control -Right hip x ray showed no acute fracture or dislocation. Diffuse osteopenia suggests osteoporosis -Lumbar spine x ray showed a mild L1 anterior compression Fx seen on prior pelvis CT on 04/06/17. Chronic L3 compression Fx. -fast food services manager consult for ADLs/IADLs assistance at home -Will consider Lumbar sp MRI PT eval fall precautions H/o CKD s/p Kidney transplant -BUN/Cr: wnl -GFR>60 -c/w mycophenolate 250 mg PO BID -c/w tacrolimus 5 mg PO BID -c/w prednisone 5 mg PO daily -c/w Cinalcacet 30 mg PO daily - Nephro's patient, Dr. Glez HTN controlled re-assume home amlodipine 5 mg PO daily f/u BP Anemia Chronic, since 2016 possible anemia of Chronic diseases Asymptomatic, HR wnl H/H: 10.3/32.7. Stable when compared with recent admissions f/u H/H Abnormal UA -asymptomatic, but has h/o frequent UTIs with ESBL -UA on admission showed small blood, trace leukocyte esterase, occ bacteria -f/u Urine Cx Hyperkalemia -mild -EKG in ED showed no acute changes compared with prior EKG on 04/06/17 -f/u BMP in AM Underweight BMI 16.2 H/O sigmoid diverticulosis -chronic, stable -Yesterday finished antibiotics: flagyl and cipro PO x 10 days -Needs f/u with GI as outpatient for possible colonoscopy H/o DM type 2 Diet: heart healthy w/ mod carboh resolved recently HgbA1C on 03/10/17 was 5.5 patient in no current DM medications or insulin -f/u accucheck before BK DVT prophylaxis SCDs Heparin 5000 units SC Q12 - Date & Time Date: 04/20/17 Time: 15:45
[2017-04-20] MEDS ORDERED: Oxycodone/Acetaminophen 5/325 mg Tab PO PRN ×2 (16:00→16:14)
[2017-04-20 16:01] LABS: RBC URINE 1 /hpf (0-3); URINE BACTERIA OCC (<OCC); URINE BILIRUBIN NEGATIVE (NEGATIVE); URINE BLOOD SMALL (NEGATIVE); URINE COLOR YELLOW (YELLOW); URINE GLUCOSE (UA) NEG (Normal); URINE KETONE NEGATIVE (NEGATIVE); URINE LEUKOCYTE ESTERASE TRACE Leu/uL (Negative); URINE PROTEIN NEGATIVE (NEGATIVE); URINE UROBILINOGEN 0.2-1.0 mg/dL (0.2-1.0); WBC URINE 2 /hpf (0-5)
[2017-04-20 16:52] LABS: BASO % 0.2 % (0.0-2.0); HEMATOCRIT 32.7 % (34.0-47.0); LYMPH # 0.8 K/uL (1.0-4.3); MEAN CELL VOLUME 90.5 fl (81.0-99.0); MEAN CORPUSCULAR HEMOGLOBIN 28.6 pg (27.0-31.0); MEAN CORPUSCULAR HGB CONC 31.7 g/dL (33.0-37.0); MEAN PLATELET VOLUME 7.5 fl (7.2-11.7); MONO # 0.5 K/uL (0.0-0.8); MONO % 6.3 % (0.0-10.0); NEUT # 6.4 K/uL (1.8-7.0); NEUT % 82.5 % (50.0-75.0); NRBC % 0.1 % (0.0-0.0); RED CELL DISTRIBUTION WIDTH 16.1 % (11.5-14.5); WHITE BLOOD COUNT 7.7 K/uL (4.8-10.8)
[2017-04-20 17:02] LABS: ALB/GLOB RATIO 1.1 (1.0-2.1); ALKALINE PHOSPHATASE 72 U/L (38-126); ALT/SGPT 17 U/L (9-52); AST/SGOT 11 U/L (14-36); BILIRUBIN,TOTAL 0.5 mg/dl (0.2-1.3); BLOOD UREA NITROGEN 13 mg/dl (7-17); CARBON DIOXIDE 27 mmol/L (22-30); CHLORIDE 102 mmol/L (98-107); GFR AFRICAN-AMERICAN > 60; GLUCOSE,RANDOM 203 mg/dL (65-105); POTASSIUM 5.2 MMOL/L (3.6-5.0); SODIUM 140 mmol/l (132-148); TOTAL PROTEIN 6.3 G/DL (6.3-8.2)
[2017-04-21] MEDS ORDERED: Oxycodone/Acetaminophen 5/325 mg Tab PO PRN (07:56)
[2017-04-21] MEDS: Lidocaine 5% Patch TD SCH (09:01)
--- NOTE | 2017-04-21 09:49 | CP.PCM.PN ---
Subjective - Date & Time of Evaluation Date of Evaluation: 04/21/17 Time of Evaluation: 08:30 - Subjective Subjective: CC: intractable back pain, h/o chronic lumbar compression fx Seen and exmained at beside, eating breakfast, pain controlled. C/O mild right sided back pain. Denies f/c/n/v/cp/cough/abd pain/diarrhea/parasthesias/focal weakness/dysuria/ frequency/bowel or urinary incontinence. Objective - Vital Signs/Intake and Output Vital Signs (last 24 hours): Temp Pulse Resp BP Pulse Ox 97.6 F 89 18 134/75 99 04/21/17 07:29 04/21/17 08:59 04/21/17 07:29 04/21/17 08:59 04/21/17 07:29 - Medications Medications: Current Medications Amlodipine Besylate (Norvasc) 5 mg PO DAILY [facility] Last Admin: 04/21/17 08:59 Dose: 5 mg Cinacalcet (Sensipar) 30 mg PO DAILY [facility] Last Admin: 04/21/17 08:59 Dose: 30 mg Heparin Sodium (Porcine) (Heparin) 5,000 units SC Q12 [facility] PRN Reason: Protocol Last Admin: 04/21/17 09:00 Dose: 5,000 units Lidocaine (Lidoderm) 1 ea TD DAILY [facility] Last Admin: 04/21/17 09:01 Dose: 1 ea Mycophenolate Mofetil (Cellcept Cap) 250 mg PO BID [facility] Last Admin: 04/21/17 08:59 Dose: 250 mg Oxycodone/Acetaminophen (Percocet 5/325 Mg Tab) 2 tab PO Q4 PRN PRN Reason: Pain, severe (8-10) Stop: 04/23/17 16:01 Last Admin: 04/20/17 23:42 Dose: 2 tab Oxycodone/Acetaminophen (Percocet 5/325 Mg Tab) 1 tab PO Q6 PRN PRN Reason: Pain, moderate (4-7) Stop: 04/24/17 07:57 Prednisone (Prednisone Tab) 5 mg PO DAILY [facility] Last Admin: 04/21/17 08:59 Dose: 5 mg Tacrolimus (Prograf Cap) 5 mg PO BID [facility] Last Admin: 04/21/17 09:00 Dose: 5 mg - Labs Labs: 04/20/17 16:44 04/20/17 16:44 - Constitutional Appears: No Acute Distress, Chronically Ill - Head Exam Head Exam: ATRAUMATIC - Eye Exam Eye Exam: EOMI Pupil Exam: PERRL - ENT Exam ENT Exam: Mucous Membranes Moist - Neck Exam Neck Exam: Full ROM - Respiratory Exam Respiratory Exam: Clear to Ausculation Bilateral - Cardiovascular Exam Cardiovascular Exam: +S1, +S2 - GI/Abdominal Exam GI & Abdominal Exam: Soft, Normal Bowel Sounds. absent: Tenderness - Back Exam Back Exam: vertebral tenderness. absent: CVA tenderness (L), CVA tenderness (R) Additional comments: around lumbar region - Neurological Exam Neurological Exam: Alert, Awake, Oriented x3 - Psychiatric Exam Psychiatric exam: Normal Affect, Normal Mood - Skin Skin Exam: Dry, Normal Color, Warm Assessment and Plan - Assessment and Plan (Free Text) Plan: 61 y/o female with CKD s/p Renal transplant, diverticulosis w/ recurrent diverticulitis, Chronic anemia, being admitted s/p fall with intractable right lower back pain. Intractable Right lower back pain -MedSurg -s/p fall, no evidence of lower back spine radiculopathy -no evidence of bladder or bowel incontinence -Pain control with percocet PRN -Right hip x ray showed no acute fracture or dislocation. Diffuse osteopenia suggests osteoporosis -Lumbar spine x ray showed a mild L1 anterior compression Fx seen on prior pelvis CT on 04/06/17. Chronic L3 compression Fx. -living manager consult for ADLs/IADLs assistance at home - PT eval pending - fall precautions H/o CKD s/p Kidney transplant -BUN/Cr: wnl -GFR>60 -c/w mycophenolate 250 mg PO BID -c/w tacrolimus 5 mg PO BID -c/w prednisone 5 mg PO daily -c/w Cinalcacet 30 mg PO daily - Nephro's patient, Dr. Glez HTN controlled re-assume home amlodipine 5 mg PO daily f/u BP Anemia Chronic, since 2016 possible anemia of Chronic diseases Asymptomatic, HR wnl H/H: 10.3/32.7. Stable when compared with recent admissions f/u labs tomorrow Abnormal UA -asymptomatic, but has h/o frequent UTIs with ESBL -UA on admission showed small blood, trace leukocyte esterase, occ bacteria -urine Cx: GNR - patient asymptomatic at present, chronically colonized by ECOLi, no present UTI smptoms, will hold off on any abx treatment. Close monitoring for now Hyperkalemia -mild -EKG in ED showed no acute changes compared with prior EKG on 04/06/17 Underweight BMI 16.2 H/O sigmoid diverticulosis -chronic, stable -Yesterday finished antibiotics: flagyl and cipro PO x 10 days -Needs f/u with GI as outpatient for possible colonoscopy H/o DM type 2 Diet: heart healthy w/ mod carboh resolved recently HgbA1C on 03/10/17 was 5.5 patient in no current DM medications or insulin -f/u accucheck before BK DVT prophylaxis SCDs Heparin 5000 units SC Q12
[2017-04-21] MEDS: Pantoprazole 40 mg EC Tab PO SCH (12:34)
[2017-04-21 13:38] LABS: HEMATOCRIT 33.7 % (34.0-47.0); MEAN CELL VOLUME 90.2 fl (81.0-99.0); MEAN CORPUSCULAR HEMOGLOBIN 28.2 pg (27.0-31.0); MEAN CORPUSCULAR HGB CONC 31.3 g/dL (33.0-37.0); RED CELL DISTRIBUTION WIDTH 15.9 % (11.5-14.5)
[2017-04-21 13:58] LABS: BLOOD UREA NITROGEN 13 mg/dl (7-17); CALCIUM 10.2 mg/dL (8.4-10.2); CARBON DIOXIDE 27 mmol/L (22-30); CHLORIDE 101 mmol/L (98-107); GFR AFRICAN-AMERICAN > 60; GLUCOSE,RANDOM 130 mg/dL (65-105); POTASSIUM 4.4 MMOL/L (3.6-5.0); SODIUM 139 mmol/l (132-148)
[2017-04-22 06:28] LABS: HEMATOCRIT 31.1 % (34.0-47.0); MEAN CELL VOLUME 88.7 fl (81.0-99.0); MEAN CORPUSCULAR HEMOGLOBIN 28.8 pg (27.0-31.0); MEAN CORPUSCULAR HGB CONC 32.5 g/dL (33.0-37.0); RED CELL DISTRIBUTION WIDTH 15.5 % (11.5-14.5); WHITE BLOOD COUNT 8.2 K/uL (4.8-10.8)
[2017-04-22 06:45] LABS: ALKALINE PHOSPHATASE 67 U/L (38-126); ALT/SGPT 14 U/L (9-52); AST/SGOT 10 U/L (14-36); BILIRUBIN,TOTAL 0.4 mg/dl (0.2-1.3); BLOOD UREA NITROGEN 16 mg/dl (7-17); CALCIUM 10.3 mg/dL (8.4-10.2); CARBON DIOXIDE 27 mmol/L (22-30); CHLORIDE 101 mmol/L (98-107); GFR AFRICAN-AMERICAN > 60; GLUCOSE,RANDOM 79 mg/dL (65-105); POTASSIUM 4.6 MMOL/L (3.6-5.0); SODIUM 139 mmol/l (132-148); TOTAL PROTEIN 6.1 G/DL (6.3-8.2)
[2017-04-22 07:05] LABS: THYROID STIMULATING HORMONE 0.04 mIU/ML (0.46-4.68)
[2017-04-22 07:31] VITALS: RESP 20
--- NOTE | 2017-04-22 08:18 | CARD ---
APPROVED REPORT EKG Measurement Heart [id number] <Conclusion> Sinus rhythm with premature atrial complexes Otherwise normal ECG
--- NOTE | 2017-04-22 09:09 | CP.PCM.PN ---
Subjective - Date & Time of Evaluation Date of Evaluation: 04/22/17 Time of Evaluation: 09:04 - Subjective Subjective: 61 y/o female seen and examined at bedside for intractable back pain s/p fall. Patient states that her lower back pain is starting to get a lot better. Patient is now complaining of mild stomach pain and states that she is unable to go to the bathroom. Patient also complains of numbness and tingling in her feet bilaterally. Patient denies of any recent F/N/V/C/SOB/CP today. Objective - Vital Signs/Intake and Output Vital Signs (last 24 hours): Temp Pulse Resp BP Pulse Ox 98.1 F 78 20 140/77 100 04/22/17 07:31 04/22/17 07:31 04/22/17 07:31 04/22/17 07:31 04/22/17 07:31 - Medications Medications: Current Medications Amlodipine Besylate (Norvasc) 5 mg PO DAILY [facility] Last Admin: 04/21/17 08:59 Dose: 5 mg Cinacalcet (Sensipar) 30 mg PO DAILY [facility] Last Admin: 04/21/17 08:59 Dose: 30 mg Docusate Sodium (Colace) 200 mg PO DAILY [facility] Heparin Sodium (Porcine) (Heparin) 5,000 units SC Q12 [facility] PRN Reason: Protocol Last Admin: 04/21/17 21:01 Dose: 5,000 units Lidocaine (Lidoderm) 1 ea TD DAILY [facility] Last Admin: 04/21/17 09:01 Dose: 1 ea Mycophenolate Mofetil (Cellcept Cap) 250 mg PO BID [facility] Last Admin: 04/21/17 16:07 Dose: 250 mg Oxycodone/Acetaminophen (Percocet 5/325 Mg Tab) 2 tab PO Q4 PRN PRN Reason: Pain, severe (8-10) Stop: 04/23/17 16:01 Last Admin: 04/20/17 23:42 Dose: 2 tab Oxycodone/Acetaminophen (Percocet 5/325 Mg Tab) 1 tab PO Q6 PRN PRN Reason: Pain, moderate (4-7) Stop: 04/24/17 07:57 Last Admin: 04/21/17 21:01 Dose: 1 tab Pantoprazole Sodium (Protonix Ec Tab) 40 mg PO DAILY [facility] Last Admin: 04/21/17 12:34 Dose: 40 mg Prednisone (Prednisone Tab) 5 mg PO DAILY [facility] Last Admin: 04/21/17 08:59 Dose: 5 mg Tacrolimus (Prograf Cap) 5 mg PO BID [facility] Last Admin: 04/21/17 16:08 Dose: 5 mg - Labs Labs: 04/22/17 05:45 04/22/17 05:45 - Constitutional Appears: Well, Non-toxic, No Acute Distress - Head Exam Head Exam: ATRAUMATIC - Eye Exam Eye Exam: EOMI Pupil Exam: PERRL - ENT Exam ENT Exam: Mucous Membranes Moist - Neck Exam Neck Exam: Full ROM - Respiratory Exam Respiratory Exam: Clear to Ausculation Bilateral - Cardiovascular Exam Cardiovascular Exam: REGULAR RHYTHM - GI/Abdominal Exam GI & Abdominal Exam: Normal Bowel Sounds Additional comments: Mild tenderness on palpation on LLQ - Back Exam Back Exam: vertebral tenderness - Neurological Exam Neurological Exam: Alert, Awake, Oriented x3 - Skin Skin Exam: Dry, Normal Color, Warm Assessment and Plan - Assessment and Plan (Free Text) Assessment: 61 y/o female with CKD s/p Renal transplant, diverticulosis w/ recurrent diverticulitis, Chronic anemia, being admitted s/p fall with intractable right lower back pain. Plan: Intractable Right lower back pain -MedSurg -s/p fall, no evidence of lower back spine radiculopathy -no evidence of bladder or bowel incontinence -Pain control with percocet PRN -Right hip x ray showed no acute fracture or dislocation. Diffuse osteopenia suggests osteoporosis -Lumbar spine x ray showed a mild L1 anterior compression Fx seen on prior pelvis CT on 04/06/17. Chronic L3 compression Fx. -Lumbar MRI - pending -system safety manager consult for ADLs/IADLs assistance at home - PT eval pending - fall precautions H/o CKD s/p Kidney transplant -BUN/Cr: wnl -GFR>60 -c/w mycophenolate 250 mg PO BID -c/w tacrolimus 5 mg PO BID -c/w prednisone 5 mg PO daily -c/w Cinalcacet 30 mg PO daily - Nephro's patient, Dr. Glez HTN controlled re-assume home amlodipine 5 mg PO daily f/u BP Anemia Chronic, since 2016 possible anemia of Chronic diseases Asymptomatic, HR wnl H/H: 10.1/31.1 continue f/u labs in the AM Abnormal UA -asymptomatic, but has h/o frequent UTIs with ESBL -UA on admission showed small blood, trace leukocyte esterase, occ bacteria -urine Cx: GNR - patient asymptomatic at present, chronically colonized by E-Coli, no present UTI smptoms, will hold off on any abx treatment. Close monitoring for now Hyperkalemia -mild -EKG in ED showed no acute changes compared with prior EKG on 04/06/17 Underweight BMI 16.2 H/O sigmoid diverticulosis -chronic, stable -finished antibiotics 2 days ago: flagyl and cipro PO x 10 days -Needs f/u with GI as outpatient for possible colonoscopy H/o DM type 2 Diet: heart healthy w/ mod carboh resolved recently HgbA1C on 03/10/17 was 5.5 patient in no current DM medications or insulin -f/u accucheck before BK DVT prophylaxis SCDs Heparin 5000 units SC Q12
[2017-04-22] MEDS: Pantoprazole 40 mg EC Tab PO SCH (09:23)
[2017-04-22] MEDS: Lidocaine 5% Patch TD SCH (09:24)
[2017-04-22 13:19] LABS: FOLATE 5.6 ng/mL
--- NOTE | 2017-04-22 14:18 | CP.PCM.DIS ---
Provider - Provider Date of Admission: 04/20/17 15:55 Attending physician: Isadora Meyers MD Time Spent in preparation of Discharge (in minutes): 20 Hospital Course - Lab Results Lab Results: Micro Results 04/20/17 16:00 Urine,Clean Catch Urine Culture - Final Escherichia Coli Most Recent Lab Values WBC 8.2 K/uL (4.8-10.8) 04/22/17 05:45 RBC 3.51 Mil/uL (3.80-5.20) L 04/22/17 05:45 Hgb 10.1 g/dL (12.0-16.0) L 04/22/17 05:45 Hct 31.1 % (34.0-47.0) L 04/22/17 05:45 MCV 88.7 fl (81.0-99.0) 04/22/17 05:45 MCH 28.8 pg (27.0-31.0) 04/22/17 05:45 MCHC 32.5 g/dL (33.0-37.0) L 04/22/17 05:45 RDW 15.5 % (11.5-14.5) H 04/22/17 05:45 Plt Count 170 K/uL (130-400) 04/22/17 05:45 MPV 7.5 fl (7.2-11.7) 04/20/17 16:44 Neut % (Auto) 82.5 % (50.0-75.0) H 04/20/17 16:44 Lymph % (Auto) 11.0 % (20.0-40.0) L 04/20/17 16:44 [place] % (Auto) 6.3 % (0.0-10.0) 04/20/17 16:44 Eos % (Auto) 0.0 % (0.0-4.0) 04/20/17 16:44 Baso % (Auto) 0.2 % (0.0-2.0) 04/20/17 16:44 Neut # 6.4 K/uL (1.8-7.0) 04/20/17 16:44 Lymph # 0.8 K/uL (1.0-4.3) L 04/20/17 16:44 [place] # 0.5 K/uL (0.0-0.8) 04/20/17 16:44 Eos # 0.0 K/uL (0.0-0.7) 04/20/17 16:44 Baso # 0.0 K/uL (0.0-0.2) 04/20/17 16:44 Sodium 139 mmol/l (132-148) 04/22/17 05:45 Potassium 4.6 MMOL/L (3.6-5.0) 04/22/17 05:45 Chloride 101 mmol/L (98-107) 04/22/17 05:45 Carbon Dioxide 27 mmol/L (22-30) 04/22/17 05:45 Anion Gap 15 (10-20) 04/22/17 05:45 BUN 16 mg/dl (7-17) 04/22/17 05:45 Creatinine 0.8 mg/dL (0.7-1.2) 04/22/17 05:45 Est GFR ( Amer) > 60 04/22/17 05:45 Est GFR (Non-Af Amer) > 60 04/22/17 05:45 POC Glucose (mg/dL) 85 mg/dL (65-110) 04/22/17 06:10 Random Glucose 79 mg/dL (65-105) 04/22/17 05:45 Calcium 10.3 mg/dL (8.4-10.2) H 04/22/17 05:45 Total Bilirubin 0.4 mg/dl (0.2-1.3) 04/22/17 05:45 AST 10 U/L (14-36) L 04/22/17 05:45 ALT 14 U/L (9-52) 04/22/17 05:45 Alkaline Phosphatase 67 U/L (38-126) 04/22/17 05:45 Total Protein 6.1 G/DL (6.3-8.2) L 04/22/17 05:45 Albumin 3.1 g/dL (3.5-5.0) L 04/22/17 05:45 Globulin 3.0 gm/dL (2.2-3.9) 04/22/17 05:45 Albumin/Globulin Ratio 1.0 (1.0-2.1) 04/22/17 05:45 Vitamin B12 294 pg/mL (239-931) 04/22/17 05:45 Folate 5.6 ng/mL 04/22/17 05:45 TSH 3rd Generation 0.04 mIU/ML (0.46-4.68) L 04/22/17 05:45 Urine Color Yellow (YELLOW) 04/20/17 15:53 Urine Clarity Slighty-cloudy (Clear) 04/20/17 15:53 Urine pH 6.0 (5.0-8.0) 04/20/17 15:53 Ur Specific [place] 1.010 (1.003-1.030) 04/20/17 15:53 Urine Protein Negative mg/dL (NEGATIVE) 04/20/17 15:53 Urine Glucose (UA) Neg mg/dL (Normal) 04/20/17 15:53 Urine Ketones Negative mg/dL (NEGATIVE) 04/20/17 15:53 Urine Blood Small (NEGATIVE) 04/20/17 15:53 Urine Nitrate Negative (NEGATIVE) 04/20/17 15:53 Urine Bilirubin Negative (NEGATIVE) 04/20/17 15:53 Urine Urobilinogen 0.2-1.0 mg/dL (0.2-1.0) 04/20/17 15:53 Ur Leukocyte Esterase Trace Ben[place]o/uL (Negative) 04/20/17 15:53 Urine RBC (Auto) 1 /hpf (0-3) 04/20/17 15:53 Urine Microscopic WBC 2 /hpf (0-5) 04/20/17 15:53 Ur Squamous Epith Cells 2 /hpf (0-5) 04/20/17 15:53 Urine Bacteria Occ (<OCC) H 04/20/17 15:53 - Hospital Course Hospital Course: 61 y/o female seen and examined at bedside for intractable back pain s/p fall. Patient states that her lower back pain is starting to get a lot better. Patient is now complaining of mild stomach pain and states that she is unable to go to the bathroom. Patient also complains of numbness and tingling in her feet bilaterally. Patient denies of any recent F/N/V/C/SOB/CP today. - Date & Time of H&P Date of H&P: 04/22/17 Time of H&P: 14:18 Discharge Exam - Head Exam Head Exam: ATRAUMATIC Discharge Plan - Follow Up Plan Condition: STABLE Disposition: HOME/ ROUTINE Referrals: [facility] [Outside] [facility] [Outside]
--- NOTE | 2017-04-22 16:50 | MRI ---
PROCEDURE: MR LUMBAR SPINE WITHOUT CONTRAST HISTORY: Lumbar pain COMPARISON: None available. TECHNIQUE: Multiecho multiplanar sequences were performed through the lumbar spine without the use of intravenous contrast. FINDINGS: There is normal alignment of the lumbar vertebral bodies. Lumbar lordosis is maintained. There is an acute superior endplate compression fracture in the L1 vertebral body with approximately 30 percent loss of anterior vertebral height and bone marrow edema in the superior endplate. There is also an acute mild superior endplate compression deformity in the L2 vertebral body with mild edema in the superior endplate and mild loss of vertebral height. There is no retropulsion. There is an old superior endplate compression deformity in the L3 vertebral body. There is no spondylolysis or spondylolisthesis. There is a large round hemangioma in the anterior L4 vertebral body and smaller hemangioma in the superior endplate of the L5 vertebral body. The conus medullaris terminates at a normal level and the nerve roots cauda equina are normal. T12-L1: No disc herniation, spinal canal stenosis or neural foraminal narrowing. L1-2: There is a moderate central and left paracentral annular tear and disc herniation which indents the ventral thecal sac without central spinal canal stenosis. No neural foraminal stenosis. L2-3: Mild posterior disc bulge without central spinal canal stenosis. No neural foraminal stenosis. L3-4: Diffuse posterior bulge and superimposed right posterolateral and foraminal disc protrusions which abut the exiting right L3 nerve root. Mild bilateral facet arthropathy contribute to moderate to severe right and moderate left neural foraminal stenosis. L4-5: Diffuse posterior disc bulge with superimposed left foraminal annular tear and disc protrusion without central spinal canal stenosis. Mild bilateral facet arthropathy contributes to mild left neural foraminal stenosis. L5-S1: Posterior disc bulge without central spinal canal stenosis. Mild bilateral facet arthropathy without significant neural foraminal stenosis. OTHER FINDINGS: There is fatty atrophy of the paraspinous muscles. There is also bilateral renal cortical atrophy and cortical cysts in both kidneys. IMPRESSION: 1. Acute superior endplate compression deformity in the L1 vertebral body with approximately 30 percent loss of anterior vertebral height. No retropulsion or spinal canal stenosis. 2. Acute mild superior endplate compression deformity in the L2 vertebral body. No retropulsion or spinal canal stenosis. 3. Old superior endplate compression deformity in the L3 vertebral body. 4. Multilevel degenerative disc disease, worse at L3-4 with a diffuse posterior bulge and superimposed right posterolateral and foraminal disc protrusions which abut the exiting right L3 nerve root. Mild bilateral facet arthropathy contribute to moderate to severe right and moderate left neural foraminal stenosis.
[2017-04-22 17:13] VITALS: BP 123/71; PULSE 93; TEMP 98.5; O2SAT 96
--- NOTE | 2017-04-22 19:18 | MRI ---
PROCEDURE: MR THORACIC SPINE WITHOUT CONTRAST HISTORY: h/o chronic compression fractures COMPARISON: Comparison is made to the previous CT dated 12/18/2016 TECHNIQUE: Multiecho multiplanar sequences were performed through the thoracic spine without the use of intravenous contrast. FINDINGS: ALIGNMENT: Normal thoracic spinal alignment. Normal thoracic kyphosis.Again seen is mild to moderate dextroscoliosis at the mid and lower thoracic spine. VERTEBRA: There is no evidence of bone marrow edema or acute compression deformity at the thoracic spine. MARROW: Marrow signal unremarkable. PARASPINAL SOFT TISSUES: Again seen is a right thyroid goiter extending to the mediastinum. CORD: Unremarkable thoracic cord. No volume loss, signal abnormality or syrinx. DISCS: No disc herniation, spinal canal stenosis, or neuroforaminal narrowing. OTHER FINDINGS: None. IMPRESSION: No evidence of acute compression deformity or destructive bony lesion at the thoracic spine. No evidence of significant spinal or neural foraminal narrowing at the thoracic spine.
== END 2017-04-22 19:00 | DRG 243 ==
LOC: H.ER 10:10 → H.ERHOLD 15:55 → OBSVTOIN 15:55 → H.MEDSURG1 18:08
PROVIDERS: ADMIT Family Medicine; ATTEND Family Medicine
DX: S32.010A Wedge compression fracture of first lumbar vertebra, initial encounter for closed fracture (principal); E11.22 Type 2 diabetes mellitus with diabetic chronic kidney disease; E87.5 Hyperkalemia; Z94.0 Kidney transplant status; K57.92 Diverticulitis of intestine, part unspecified, without perforation or abscess without bleeding; N18.9 Chronic kidney disease, unspecified; S32.030A Wedge compression fracture of third lumbar vertebra, initial encounter for closed fracture; I12.9 Hypertensive chronic kidney disease with stage 1 through stage 4 chronic kidney disease, or unspecified chronic kidney disease; D63.8 Anemia in other chronic diseases classified elsewhere; E78.5 Hyperlipidemia, unspecified; R63.6 Underweight; Z68.1 Body mass index [BMI] 19.9 or less, adult; M19.90 Unspecified osteoarthritis, unspecified site; W08.XXXA Fall from other furniture, initial encounter; Z87.440 Personal history of urinary (tract) infections; Z88.1 Allergy status to other antibiotic agents; Z91.041 Radiographic dye allergy status; Y93.9 Activity, unspecified; Y92.008 Other place in unspecified non-institutional (private) residence as the place of occurrence of the external cause

== ENCOUNTER 2017-06-27 09:35 | Inpatient (IN) | payer MEDICAID ==
[2017-06-27 09:37] VITALS: BMI 20.5
[2017-06-27] MEDS ORDERED: Sodium Chloride 0.9% 1,000 ML IV STA (09:51)
--- NOTE | 2017-06-27 09:57 | ED PDOC ---
HPI: Abdomen Time Seen by Provider: 06/27/17 09:40 Chief Complaint (Nursing): Abdominal Pain Chief Complaint (Provider): Abdominal Pain History Per: Patient History/Exam Limitations: no limitations Onset/Duration Of Symptoms: Days (x 3) Associated Symptoms: Nausea, Vomiting. denies: Fever Additional Complaint(s): Leticia Poon is a 62-year-old female with a past medical history of diverticulitis and end stage renal disease s/p transplant, who presents to the ED complaining of left lower quadrant abdominal pain associated with nausea, vomiting, and loose stools for 3 days. Also reports decreased appetite. No fever. Patient notes occasional small amounts of blood in the stool. PMD: Dr. Ryan Fried MD Past Medical History Reviewed: Historical Data, Nursing Documentation, Vital Signs Vital Signs: Last Vital Signs Temp 99 F 06/27/17 09:37 Pulse 103 H 06/27/17 09:37 Resp 17 06/27/17 09:37 BP 129/72 06/27/17 09:37 Pulse Ox 97 06/27/17 11:54 - Medical History PMH: Anemia, Arthritis, Diabetes, Diverticulitis, HTN, Hypercholesterolemia, End Stage Renal Disease (s/p transplant) Denies: HIV - Surgical History Surgical History: Other surgeries: Kidney transplant - Family History Family History: States: Unknown Family Hx - Social History Current smoker - smoking cessation education provided: No Alcohol: None Drugs: Denies - Home Medications Home Medications: Ambulatory Orders Medication Instructions Recorded Tacrolimus [Prograf] 5 mg PO BID 01/18/17 amLODIPine [Norvasc] 5 mg PO DAILY 01/18/17 predniSONE [predniSONE Tab] 5 mg PO DAILY 01/18/17 Mycophenolate [Cellcept Cap] 250 mg PO BID 03/10/17 Cinacalcet [Sensipar] 30 mg PO DAILY 04/06/17 Atorvastatin [Lipitor] 20 mg PO HS 06/27/17 Pantoprazole Sodium [Protonix] 40 mg PO DAILY 06/27/17 - Allergies Allergies/Adverse Reactions: Allergies Allergy/AdvReac Type Severity Reaction Status Date / Time cefazolin Allergy ITCHING Verified 06/27/17 09:48 iodine Allergy ITCHING Verified 06/27/17 09:48 vancomycin Allergy ITCHING Verified 06/27/17 09:48 Review of Systems ROS Statement: Except As Marked, All Systems Reviewed And Found Negative Constitutional: Negative for: Fever, Chills Gastrointestinal: Positive for: Nausea, Vomiting, Abdominal Pain, Diarrhea ( loose stools), Hematochezia (occasional) Physical Exam - Reviewed Nursing Documentation Reviewed: Yes Vital Signs Reviewed: Yes - Physical Exam Appears: Positive for: Non-toxic, No Acute Distress Head Exam: Positive for: ATRAUMATIC, NORMOCEPHALIC Skin: Positive for: Normal Color, Warm, Dry Eye Exam: Positive for: EOMI, Normal appearance, PERRL ENT: Positive for: Other (mucous membranes dry) Neck: Positive for: Normal, Painless ROM, Supple Cardiovascular/Chest: Positive for: Regular Rate, Rhythm. Negative for: Murmur Respiratory: Positive for: Decreased Breath Sounds (bilaterally at the bases). Negative for: Respiratory Distress Gastrointestinal/Abdominal: Positive for: Bowel Sounds (present), Soft, Tenderness (to LLQ). Negative for: Distended Extremity: Positive for: Normal ROM, Other (Contractures at lower extremities bilaterally). Negative for: Pedal Edema, Swelling Neurologic/Psych: Positive for: Alert, Oriented (x 3) - Laboratory Results Result Diagrams: 06/27/17 10:35 06/27/17 10:35 - ECG O2 Sat by Pulse Oximetry: 97 (RA) Pulse Ox Interpretation: Normal - Other Rad Chest X-Ray X-Ray: Interpreted by Me, Viewed By Me X-Ray Interpretation: No acute disease - Progress ED Course And Treament: 11:52 CT Abd & Pelvis FINDINGS: LOWER THORAX: Coronary arterial calcification LIVER: Normal size, contour and attenuation. No mass. No biliary dilatation. GALLBLADDER AND BILE DUCTS: Cholelithiasis. No mural thickening or pericholecystic fluid. PANCREAS: Unremarkable. No gross lesion or ductal dilatation. SPLEEN: Unremarkable. ADRENALS: Unremarkable. No mass. KIDNEYS AND URETERS: Atrophic [place] kidneys. Transplant kidney in right iliac fossa. Two rounded low-density masses in the transplant kidney, unchanged from prior examination. These measure 1.5 and 0.9 cm, respectively. There is no hydronephrosis. There is no evidence of ureteral calculus or renal calculus. VASCULATURE: Unremarkable. No aortic aneurysm. BOWEL: There is a collection of fluid and gas within a rounded structure immediately anterior to the sigmoid colon. . It has a thick wall. There is mild surrounding inflammatory change noted in adjacent mesenteric fat. This structure measures approximately 6.2 cm in diameter. Differential diagnosis includes communicating giant diverticulum, likely with superinfection, versus communicating abscess. There is mural thickening of the sigmoid colon as on prior examination, likely due to chronic muscular hypertrophy associated with chronic diverticular disease. There are no other abnormal bowel loops identified. There is no evidence of bowel obstruction. APPENDIX: Unremarkable. Normal appendix. PERITONEUM: Unremarkable. No free fluid. No free air. LYMPH NODES: Unremarkable. No enlarged lymph nodes. BLADDER: Poorly distended. REPRODUCTIVE: Normal uterus. BONES: Mild compression deformity of the superior L3 vertebral endplate unchanged from prior. Mild anterior wedge compression deformity of the L1 vertebra, representing some interval change when compared to the prior examination, but of of indeterminate chronicity. OTHER FINDINGS: None. IMPRESSION: 6 cm thick walled collection of fluid and gas adjacent to sigmoid colon, increased in size from 04/06/2017. Differential diagnosis includes giant sigmoid diverticulum versus communicating abscess. Consider surgical consultation if symptomatic. Chronic renal failure with transplant kidney in right iliac fossa. No evidence of urinary calculus or urinary tract obstruction. Cholelithiasis without evidence of cholecystitis. Mild anterior wedge compression deformity of the L1 vertebra new since 04/06/2017. Medical Decision Making Medical Decision Making: Time: 9:51 Initial Plan: * CMP * CBC w/ differential * VBG * Urine dipstick * Blood culture * Chest x-ray * NS IV 1000 ml at 200 mls/hr * Zofran 4 mg IV * Pending CT Abd & Pelvis w/o contrast 11:50 Received call from Radiology, CT shows exacerbation of diverticulitis. 11:52 Discussed case with family practice resident. Scribe Attestation: Documented by Katty Paez, acting as a scribe for Philip German MD Provider Scribe Attestation: All medical record entries made by the Scribe were at my direction and personally dictated by me. I have reviewed the chart and agree that the record accurately reflects my personal performance of the history, physical exam, medical decision making, and the department course for this patient. I have also personally directed, reviewed, and agree with the discharge instructions and disposition. Disposition - Clinical Impression Clinical Impression: Diverticulitis, Sepsis - Patient ED Disposition Is Patient to be Admitted: Yes - Disposition Disposition Time: 11:58 Condition: FAIR Forms: BiiCode (Czech) - Pt Status Changed To: Hospital Disposition Of: Inpatient - Admit Certification Admit to Inpatient:: After my assessment, the patient will require hospitalization for at least two midnights. This is because of the severity of symptoms shown, intensity of services needed, and/or the medical risk in this patient being treated as an outpatient. - POA Present On Arrival: None
[2017-06-27 10:54] LABS: VENOUS BLOOD GAS PCO2 46 mmHg (40-60)
[2017-06-27 11:01] LABS: BASO % 0.3 % (0.0-2.0); EOS # 0.1 K/uL (0.0-0.7); EOS % 0.7 % (0.0-4.0); HEMATOCRIT 31.8 % (34.0-47.0); LYMPH # 1.2 K/uL (1.0-4.3); LYMPH % 8.8 % (20.0-40.0); MEAN CELL VOLUME 89.5 fl (81.0-99.0); MEAN CORPUSCULAR HEMOGLOBIN 28.5 pg (27.0-31.0); MEAN CORPUSCULAR HGB CONC 31.9 g/dL (33.0-37.0); MEAN PLATELET VOLUME 7.3 fl (7.2-11.7); MONO # 1.2 K/uL (0.0-0.8); MONO % 9.4 % (0.0-10.0); NEUT # 10.7 K/uL (1.8-7.0); NEUT % 80.8 % (50.0-75.0); PLATELET COUNT 294 K/uL (130-400); RED CELL DISTRIBUTION WIDTH 15.1 % (11.5-14.5); WHITE BLOOD COUNT 13.2 K/uL (4.8-10.8)
[2017-06-27 11:09] LABS: ALKALINE PHOSPHATASE 82 U/L (38-126); ALT/SGPT 25 U/L (9-52); AST/SGOT 9 U/L (14-36); BILIRUBIN,TOTAL 0.4 mg/dl (0.2-1.3); BLOOD UREA NITROGEN 17 mg/dl (7-17); CARBON DIOXIDE 22 mmol/L (22-30); CHLORIDE 105 mmol/L (98-107); GFR AFRICAN-AMERICAN > 60; GLUCOSE,RANDOM 132 mg/dL (65-105); POTASSIUM 4.3 MMOL/L (3.6-5.0); SODIUM 133 mmol/l (132-148); TOTAL PROTEIN 6.3 G/DL (6.3-8.2)
--- NOTE | 2017-06-27 11:48 | RAD ---
HISTORY: cough COMPARISON: Frontal chest radiograph 03/14/2017 prior FINDINGS: Patient appears to be leaning towards the left in the interval. LUNGS: No acute infiltrate is identified bilaterally. PLEURA: No significant pleural effusion identified, no pneumothorax apparent. CARDIOVASCULAR: Normal. OSSEOUS STRUCTURES: No significant abnormalities. VISUALIZED UPPER ABDOMEN: Normal. OTHER FINDINGS: Incidental note is made of multiple wall stents identified at the proximal right arm/axilla with vascular grafts likely in the bilateral upper extremities as well. IMPRESSION: No interval acute cardiopulmonary disease appreciated.
[2017-06-27 11:51] LABS: EOSINOPHIL 1 % (0-7); NEUTROPHIL 74 % (42-75); TOTAL CELLS COUNTED 100
--- NOTE | 2017-06-27 11:52 | CT ---
PROCEDURE: CT Abdomen and Pelvis without intravenous contrast HISTORY: r/o kidney stone COMPARISON: 04/06/2017 TECHNIQUE: Without contrast.. Contrast Dose: 0 Radiation dose: Total exam DLP = 195.04 mGy-cm. This CT exam was performed using one or more of the following dose reduction techniques: Automated exposure control, adjustment of the mA and/or kV according to patient size, and/or use of iterative reconstruction technique. FINDINGS: LOWER THORAX: Coronary arterial calcification LIVER: Normal size, contour and attenuation. No mass. No biliary dilatation. GALLBLADDER AND BILE DUCTS: Cholelithiasis. No mural thickening or pericholecystic fluid. PANCREAS: Unremarkable. No gross lesion or ductal dilatation. SPLEEN: Unremarkable. ADRENALS: Unremarkable. No mass. KIDNEYS AND URETERS: Atrophic [place] kidneys. Transplant kidney in right iliac fossa. Two rounded low-density masses in the transplant kidney, unchanged from prior examination. These measure 1.5 and 0.9 cm, respectively. There is no hydronephrosis. There is no evidence of ureteral calculus or renal calculus. VASCULATURE: Unremarkable. No aortic aneurysm. BOWEL: There is a collection of fluid and gas within a rounded structure immediately anterior to the sigmoid colon. . It has a thick wall. There is mild surrounding inflammatory change noted in adjacent mesenteric fat. This structure measures approximately 6.2 cm in diameter. Differential diagnosis includes communicating giant diverticulum, likely with superinfection, versus communicating abscess. There is mural thickening of the sigmoid colon as on prior examination, likely due to chronic muscular hypertrophy associated with chronic diverticular disease. There are no other abnormal bowel loops identified. There is no evidence of bowel obstruction. APPENDIX: Unremarkable. Normal appendix. PERITONEUM: Unremarkable. No free fluid. No free air. LYMPH NODES: Unremarkable. No enlarged lymph nodes. BLADDER: Poorly distended. REPRODUCTIVE: Normal uterus. BONES: Mild compression deformity of the superior L3 vertebral endplate unchanged from prior. Mild anterior wedge compression deformity of the L1 vertebra, representing some interval change when compared to the prior examination, but of of indeterminate chronicity. OTHER FINDINGS: None. IMPRESSION: 6 cm thick walled collection of fluid and gas adjacent to sigmoid colon, increased in size from 04/06/2017. Differential diagnosis includes giant sigmoid diverticulum versus communicating abscess. Consider surgical consultation if symptomatic. Chronic renal failure with transplant kidney in right iliac fossa. No evidence of urinary calculus or urinary tract obstruction. Cholelithiasis without evidence of cholecystitis. Mild anterior wedge compression deformity of the L1 vertebra new since 04/06/2017.
[2017-06-27] MEDS ORDERED: Ciprofloxacin 400mg/200ml D5W 400 MG/200 ML BAG IVPB STA (11:54)
[2017-06-27] MEDS ORDERED: metroNIDAZOLE 500mg/100ml NS 250 MG in Premixed IV 1 EA IVPB STA (11:56)
[2017-06-27] MEDS ORDERED: Ciprofloxacin 400mg/200ml D5W 400 MG/200 ML BAG IVPB ONE (12:43)
[2017-06-27] MEDS ORDERED: metroNIDAZOLE 500mg/100ml NS 100 ML IVPB ONE (12:43)
--- NOTE | 2017-06-27 13:19 | CP.PCM.HP ---
History of Present Illness - History of Present Illness History of Present Illness: 62 y/o female with PMHx of diverticulitis, CKD/ESRD s/p renal transplant, DM, HTN, HLD, anemia, and recurrent UTIs seen at bedside in ED for left lower quadrant abdominal pain. Patient's son is at bedside and assists in providing patient history. Patient reports vomiting and loss of appetite x 3 days and loose stools x 4 days. Patient has had several recent admissions for diverticulosis with episodes of diverticulitis. Patient was last admitted for diverticulitis on 04/07/2017 and treated with IV Ciprofloxacin and Flagyl. Patient describes the pain as constant and worsening over the last 4 days. Patient states the pain comes any time she moves. Patient states the pain does not radiate anywhere else. Patient says she has been urinating as normal and denies burning or increased frequency of urination. Patient admits to seeing a tiny amount of blood in her stools over the last 2-3 days. Patient also states she has chronic numbness on the bottom of both of her feet, more so on the right one. Patient denies F/C/CP/SOB. Patient denies constipation. PMD: Dr. Ryan Fried, Dr. Jaleesa Miner ([facility]) Ged Preparation Teacher: Dr. Glez PSH: Right kidney transplant, 2 C-sections All: Cefazolin, Vancomycin, Iodine Social Hx: Lives at home with daughter. Denies EtOH, denies cigarette, denies illicit drug use Family Hx: several family members with HTN; mother has hx of stroke; aunt has hx of asthma Code status: full code Next of Kin: daughter (lives with patient) LMP: menses completed 9 years ago ED course: -Vital signs: T 99 HR 103 BP 129/72 RR 176 O2 sat 97 RA -CBC w/ diff, CMP, VBG: WBC 13.2, Hgb 10.1, lactic acid 1.2 -CT abdomen/pelvis without contrast: 6 cm thick walled collection of fluid and gas adjacent to sigmoid colon, increased in size from 04/06/2017. Differential diagnosis includes giant sigmoid diverticulum versus communicating abscess. Consider surgical consultation if symptomatic. Chronic renal failure with transplant kidney in right iliac fossa. No evidence of urinary calculus or urinary tract obstruction. Cholelithiasis without evidence of cholecystitis. Mild anterior wedge compression deformity of the L1 vertebra new since 04/06/2017 -PE: LLQ abdominal tenderness, bilateral LE contractures -IV Cipro, IV Flagyl -Zofran -1L NS Present on Admission - Present on Admission Any Indicators Present on Admission: No Review of Systems - Constitutional Constitutional: Weight Loss - EENT Eyes: absent: Change in Vision Ears: absent: Tinnitus Nose/Mouth/Throat: absent: Dry Mouth, Neck Pain - Cardiovascular Cardiovascular: absent: Chest Pain, Dyspnea, Pedal Edema - Respiratory Respiratory: absent: Cough, Wheezing - Gastrointestinal Gastrointestinal: Abdominal Pain, Change in Stool Character, Diarrhea, Loose Stools, Vomiting. absent: Constipation - Genitourinary Genitourinary: absent: Difficulty Urinating, Dysuria, Urinary Incontinence, Urinary Frequency - Reproductive: Female Reproductive:Female: Post Menopausal. absent: Vaginal Discharge - Menstruation Menstruation: Post Menopausal - Neurological Neurological: Numbness Additional comments: numbness to soles of feet, R>L - Psychiatric Psychiatric: Change in Appetite. absent: Anxiety, Depression Past Patient History - Infectious Disease Hx of Infectious Diseases: None - Past Medical History & Family History Past Medical History?: Yes - Past Social History Alcohol: None Drugs: Denies - CARDIAC Hx Hypercholesterolemia: Yes Hx Hypertension: Yes - PULMONARY Hx Respiratory Disorders: No - NEUROLOGICAL Hx Neurological Disorder: No - HEENT Hx HEENT Problems: No - RENAL Hx Chronic Kidney Disease: Yes Other/Comment: kidney transplant - ENDOCRINE/METABOLIC Hx Endocrine Disorders: Yes Hx Diabetes Mellitus Type 2: Yes - HEMATOLOGICAL/ONCOLOGICAL Hx Anemia: Yes Hx Human Immunodeficiency Virus (HIV): No - INTEGUMENTARY Hx Dermatological Problems: No - MUSCULOSKELETAL/RHEUMATOLOGICAL Hx Arthritis: Yes - GASTROINTESTINAL Hx Diverticulitis: Yes - GENITOURINARY/GYNECOLOGICAL Hx Genitourinary Disorders: Yes - PSYCHIATRIC Hx Psychophysiologic Disorder: No Hx Substance Use: No - SURGICAL HISTORY Hx Surgeries: Yes Hx Arteriovenous Shunt: Yes Hx Section: Yes (x2) Hx Vascular Access Device: Yes Other/Comment: RIGHT KIDNEY TRANSPLANT - ANESTHESIA Hx Anesthesia: Yes Hx Anesthesia Reactions: No Hx Malignant Hyperthermia: No Meds Allergies/Adverse Reactions: Allergies Allergy/AdvReac Type Severity Reaction Status Date / Time cefazolin Allergy ITCHING Verified 06/27/17 09:48 iodine Allergy ITCHING Verified 06/27/17 09:48 vancomycin Allergy ITCHING Verified 06/27/17 09:48 Physical Exam - Constitutional Appears: Well, Non-toxic, No Acute Distress, Older Than Stated Age, Cachectic - Head Exam Head Exam: ATRAUMATIC, NORMOCEPHALIC - Eye Exam Eye Exam: Normal appearance, PERRL Pupil Exam: PERRL - ENT Exam ENT Exam: Mucous Membranes Moist, Normal Exam - Neck Exam Neck exam: Positive for: Full Rom, Normal Inspection. Negative for: Lymphadenopathy - Respiratory Exam Respiratory Exam: Decreased Breath Sounds, Clear to Auscultation Bilateral Additional comments: mildly decreased breath sounds at bilateral lung bases - Cardiovascular Exam Cardiovascular Exam: REGULAR RHYTHM, +S1, +S2. absent: JVD - GI/Abdominal Exam GI & Abdominal Exam: Normal Bowel Sounds, Soft, Tenderness Additional comments: tenderness to LLQ on deep palpation - Rectal Exam Rectal Exam: Deferred - Extremities Exam Extremities exam: Positive for: normal capillary refill, pedal pulses present. Negative for: calf tenderness, pedal edema - Back Exam Back exam: NORMAL INSPECTION - Neurological Exam Neurological exam: Alert, Oriented x3 - Psychiatric Exam Psychiatric exam: Normal Affect, Normal Mood - Skin Skin Exam: Dry, Intact, Normal Color Results - Vital Signs Recent Vital Signs: Last Vital Signs Temp 99 F 06/27/17 09:37 Pulse 103 H 06/27/17 09:37 Resp 17 06/27/17 09:37 BP 129/72 06/27/17 09:37 Pulse Ox 97 06/27/17 11:58 - Labs Result Diagrams: 06/27/17 10:35 06/27/17 10:35 Labs: Laboratory Results - last 24 hr 06/27/17 06/27/17 06/27/17 10:35 10:35 10:45 WBC 13.2 H D RBC 3.56 L Hgb 10.2 L Hct 31.8 L MCV 89.5 MCH 28.5 MCHC 31.9 L RDW 15.1 H Plt Count 294 D MPV 7.3 Neut % (Auto) 80.8 H Lymph % (Auto) 8.8 L [place] % (Auto) 9.4 Eos % (Auto) 0.7 Baso % (Auto) 0.3 Neut # 10.7 H Lymph # 1.2 [place] # 1.2 H Eos # 0.1 Baso # 0.0 Neutrophils % (Manual) 74 Band Neutrophils % 6 H Lymphocytes % (Manual) 9 L Monocytes % (Manual) 10 Eosinophils % (Manual) 1 Toxic Granulation Present Platelet Estimate Normal Hypochromasia (manual) Slight Anisocytosis (manual) Slight pO2 24 L VBG pH 7.40 VBG pCO2 46 VBG HCO3 25.8 VBG Total CO2 29.9 H VBG O2 Sat (Calc) 58.3 VBG Base Excess 3.0 H VBG Potassium 5.5 H Glucose 140 H Lactate 1.2 FiO2 21.0 Sodium 133 134.0 Potassium 4.3 Chloride 105 104.0 Carbon Dioxide 22 Anion Gap 10 BUN 17 Creatinine 0.8 Est GFR ( Amer) > 60 Est GFR (Non-Af Amer) > 60 Random Glucose 132 H Calcium 12.0 H Total Bilirubin 0.4 AST 9 L ALT 25 Alkaline Phosphatase 82 Total Protein 6.3 Albumin 3.1 L Globulin 3.2 Albumin/Globulin Ratio 1.0 Venous Blood Potassium 5.5 H Assessment & Plan - Assessment and Plan (Free Text) Assessment: 62 y/o female Plan: 1) Diverticulitis -CT abdomen shows 6 cm thick walled collection of fluid and gas adjacent to sigmoid colon. DDX includes giant sigmoid diverticulitis vs. communicating abscess. No evidence of urinary calculus or urinary tract obstruction. Cholelithiasis without evidence of cholecystitis. Mild anterior wedge compression of L1 vertebra, new since 03/2017 -surgery consult placed for Dr. Sanz, recs appreciated -placed on NPO diet -IV Cipro, IV Flagyl -Zofran prn for N/V -Tylenol, Morphine prn for pain control 2) Sepsis -WBC 13.2, HR 103; pt meets SIRS criteria -possible diverticulitis as source of infx -lactic acid 1.2 -IV Cipro, Flagyl, IV fluids 3) Hypercalcemia -started on IV NS 125 ml/hr -Cinacalcet 4) Hx of renal transplant -continue Mycophenolate and Prednisone -Dr. Glez consulted 5) Anemia -Hgb at 10.1 -continue to monitor 6) Hypertension -continue Norvasc -monitor BP 7) Hyperlipidemia -continue Atorvastatin 8) Diabetes mellitus -last HgA1C 5.5 in February 2017 -new A1C ordered 9) DVT prophylaxis -SCDs at present -await surgical recs, will consider Heparin therapy 10) Diet -NPO diet 11) Code status -full code
[2017-06-27] MEDS ORDERED: Sodium Chloride 0.9% 1,000 ML IV SCH (13:30)
--- NOTE | 2017-06-27 15:32 | CP.PCM.CON ---
History of Present Illness - History of Present Illness History of Present Illness: GENERAL SURGERY CONSULT NOTE FOR DR. RAM 62yo F with CKD s/p kidney transplant, HTN, DM, recurrent diverticulitis and UTI presents to the ED with abdominal pain, vomiting and loose stools. The LLQ abdominal pain began 5 days ago. She had associated nausea, vomited 4 times. She had some loose stools for about 3 days with small amount of blood. Patient reports being unable to walk and she does not leave the apartment except when the ambulance brings her to the hospital. Her family takes care of her. The patient was admitted for diverticulitis in December, February, and March of this year. At that time, she was determined to be a poor surgical candidate due to her comorbidities and frail health. She was treated conservatively with IV Antibiotics and recommended to have outpatient colonoscopy. Patient states that she did not follow up with a surgeon outpatient because she is too weak and unable to walk or get to the office. PMH: Anemia, CKD with prior HD now with Right kidney transplant, Chronic back pain, HTN, DM, HLD, Hx of falls, Diverticulitis, Recurrent UTI. PSH: Bilateral UE AVFs, x2, Right kidney transplant in 2004 SH: No tobacco, No EtOH, No drug use All: Cefazolin, Iodine, Vancomycin Review of Systems - Review of Systems All systems: reviewed and no additional remarkable complaints except (as per HPI ) Past Patient History - Infectious Disease Hx of Infectious Diseases: None - Past Medical History & Family History Past Medical History?: Yes - Past Social History Alcohol: None Drugs: Denies - CARDIAC Hx Hypercholesterolemia: Yes Hx Hypertension: Yes - PULMONARY Hx Respiratory Disorders: No - NEUROLOGICAL Hx Neurological Disorder: No - HEENT Hx HEENT Problems: No - RENAL Hx Chronic Kidney Disease: Yes Other/Comment: kidney transplant - ENDOCRINE/METABOLIC Hx Endocrine Disorders: Yes Hx Diabetes Mellitus Type 2: Yes - HEMATOLOGICAL/ONCOLOGICAL Hx Anemia: Yes Hx Human Immunodeficiency Virus (HIV): No - INTEGUMENTARY Hx Dermatological Problems: No - MUSCULOSKELETAL/RHEUMATOLOGICAL Hx Arthritis: Yes - GASTROINTESTINAL Hx Diverticulitis: Yes - GENITOURINARY/GYNECOLOGICAL Hx Genitourinary Disorders: Yes - PSYCHIATRIC Hx Psychophysiologic Disorder: No Hx Substance Use: No - SURGICAL HISTORY Hx Surgeries: Yes Hx Arteriovenous Shunt: Yes Hx Section: Yes (x2) Hx Vascular Access Device: Yes Other/Comment: RIGHT KIDNEY TRANSPLANT - ANESTHESIA Hx Anesthesia: Yes Hx Anesthesia Reactions: No Hx Malignant Hyperthermia: No Meds Allergies/Adverse Reactions: Allergies Allergy/AdvReac Type Severity Reaction Status Date / Time cefazolin Allergy ITCHING Verified 06/27/17 09:48 iodine Allergy ITCHING Verified 06/27/17 09:48 vancomycin Allergy ITCHING Verified 06/27/17 09:48 - Medications Medications: Current Medications Acetaminophen (Tylenol 325mg Tab) 650 mg PO Q6 PRN PRN Reason: Pain, moderate (4-7) Amlodipine Besylate (Norvasc) 5 mg PO DAILY [facility] Atorvastatin Calcium (Lipitor) 20 mg PO HS [facility] Cholecalciferol (Vitamin D) 1,000 iu PO DAILY [facility] Cinacalcet (Sensipar) 30 mg PO DAILY [facility] Home Med (Tacrolimus [Prograf]) 5 mg PO BID [facility] Sodium Chloride (Sodium Chloride 0.9%) 1,000 mls @ 125 mls/hr IV .Q8H [facility] Ciprofloxacin (Cipro 400mg/200ml Dsw) 400 mg in 200 mls @ 200 mls/hr IVPB Q12 [facility] PRN Reason: Protocol Metronidazole (Flagyl 500mg/100ml Ns) 100 mls @ 100 mls/hr IVPB Q8 [facility] PRN Reason: Protocol Morphine Sulfate (Morphine) 2 mg IVP Q6 PRN PRN Reason: Pain, severe (8-10) Mycophenolate Mofetil (Cellcept Cap) 250 mg PO BID [facility] Ondansetron HCl (Zofran Inj) 4 mg IVP Q6 PRN PRN Reason: Nausea/Vomiting Pantoprazole Sodium (Protonix Ec Tab) 40 mg PO DAILY [facility] Prednisone (Prednisone Tab) 5 mg PO DAILY [facility] Tacrolimus (Prograf Cap) 5 mg PO BID [facility] Physical Exam - Constitutional Appears: Non-toxic, No Acute Distress, Older Than Stated Age, Chronically Ill - Respiratory Exam Respiratory Exam: NORMAL BREATHING PATTERN. absent: Respiratory Distress - Cardiovascular Exam Cardiovascular Exam: +S1, +S2 - GI/Abdominal Exam GI & Abdominal Exam: Soft, Tenderness (tender in LLQ). absent: Distended, Firm , Guarding, Rebound, Rigid - Extremities Exam Extremities exam: Positive for: normal inspection. Negative for: calf tenderness, pedal edema - Neurological Exam Neurological exam: Alert - Psychiatric Exam Psychiatric exam: Normal Affect, Normal Mood - Skin Skin Exam: Dry, Normal Color, Warm Results - Vital Signs Recent Vital Signs: Last Vital Signs Temp 99.0 F 06/27/17 13:18 Pulse 85 06/27/17 13:18 Resp 17 06/27/17 09:37 BP 116/54 L 06/27/17 13:18 Pulse Ox 98 06/27/17 13:18 - Labs Result Diagrams: 06/27/17 10:35 06/27/17 10:35 Labs: Laboratory Results - last 24 hr 06/27/17 06/27/17 06/27/17 10:35 10:35 10:45 WBC 13.2 H D RBC 3.56 L Hgb 10.2 L Hct 31.8 L MCV 89.5 MCH 28.5 MCHC 31.9 L RDW 15.1 H Plt Count 294 D MPV 7.3 Neut % (Auto) 80.8 H Lymph % (Auto) 8.8 L [place] % (Auto) 9.4 Eos % (Auto) 0.7 Baso % (Auto) 0.3 Neut # 10.7 H Lymph # 1.2 [place] # 1.2 H Eos # 0.1 Baso # 0.0 Neutrophils % (Manual) 74 Band Neutrophils % 6 H Lymphocytes % (Manual) 9 L Monocytes % (Manual) 10 Eosinophils % (Manual) 1 Toxic Granulation Present Platelet Estimate Normal Hypochromasia (manual) Slight Anisocytosis (manual) Slight pO2 24 L VBG pH 7.40 VBG pCO2 46 VBG HCO3 25.8 VBG Total CO2 29.9 H VBG O2 Sat (Calc) 58.3 VBG Base Excess 3.0 H VBG Potassium 5.5 H Glucose 140 H Lactate 1.2 FiO2 21.0 Sodium 133 134.0 Potassium 4.3 Chloride 105 104.0 Carbon Dioxide 22 Anion Gap 10 BUN 17 Creatinine 0.8 Est GFR ( Amer) > 60 Est GFR (Non-Af Amer) > 60 Random Glucose 132 H Calcium 12.0 H Total Bilirubin 0.4 AST 9 L ALT 25 Alkaline Phosphatase 82 Total Protein 6.3 Albumin 3.1 L Globulin 3.2 Albumin/Globulin Ratio 1.0 Venous Blood Potassium 5.5 H Assessment & Plan - Assessment and Plan (Free Text) Assessment: 62yo F with CKD s/p kidney transplant, HTN, DM, recurrent diverticulitis and UTI presents to the ED with abdominal pain, vomiting and loose stools and found to have large diverticulum vs abscess adjacent to sigmoid - Afebrile, VSS - Mild leukocytosis WBC 13.3 - Mild anemia Hgb 10.2 - CT: 6cm thick walled collection of fluid & gas adjacent to sigmoid colon, increased in size since 04/06/17. DDx: giant sigmoid diverticulum vs communicating abscess. - Patient poor surgical candidate at this time - Will treat conservatively for now with bowel rest and IV antibiotics ( currently on Cipro and Flagyl) - Discussed plan with Dr. Yvon Torres PGY-3
[2017-06-27] MEDS: metroNIDAZOLE 500mg/100ml NS 100 ML IVPB SCH (16:41)
[2017-06-27] MEDS ORDERED: TACROLIMUS 5 MG PO SCH (17:00)
--- NOTE | 2017-06-27 20:38 | CP.PCM.CON ---
History of Present Illness - History of Present Illness History of Present Illness: REASONS FOR CONSULT : S/P RENAL TRANSPLANT H/O RECURRENT UTI HYPERCALCEMIA .. CHRONIC .. CA IS CURRENTLY 12.1 PT IS WELL KNOWN TO ME SINCE THE LAST CENTURY .. MMP WITH FREQEUNT ADMISSIONS THIS TIME WAS ADMITTED FOR DIVERTICULITIS .. HAS HAD FREQEUNT ADMISSIONS FOR SAME .. 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 Patient's son is at bedside and assists in providing patient history. Patient reports vomiting and loss of appetite x 3 days and loose stools x 4 days. Patient has had several recent admissions for diverticulosis with episodes of diverticulitis. Patient was last admitted for diverticulitis on 04/07/2017 and treated with IV Ciprofloxacin and Flagyl. Patient describes the pain as constant and worsening over the last 4 days. Patient states the pain comes any time she moves. Patient states the pain does not radiate anywhere else. Patient says she has been urinating as normal and denies burning or increased frequency of urination. Patient admits to seeing a tiny amount of blood in her stools over the last 2-3 days. Patient also states she has chronic numbness on the bottom of both of her feet, more so on the right one. Patient denies F/C/CP/SOB. Patient denies constipation. PMD: Dr. Ryan Fried, Dr. Jaleesa Miner ([facility]) Rail Engineer: Dr. Glez PSH: Right kidney transplant, 2 C-sections All: Cefazolin, Vancomycin, Iodine Social Hx: Lives at home with daughter. Denies EtOH, denies cigarette, denies illicit drug use Family Hx: several family members with HTN; mother has hx of stroke; aunt has hx of asthma Code status: full code Next of Kin: daughter (lives with patient) LMP: menses completed 9 years ago ED course: -Vital signs: T 99 HR 103 BP 129/72 RR 176 O2 sat 97 RA -CBC w/ diff, CMP, VBG: WBC 13.2, Hgb 10.1, lactic acid 1.2 -CT abdomen/pelvis without contrast: 6 cm thick walled collection of fluid and gas adjacent to sigmoid colon, increased in size from 04/06/2017. Differential diagnosis includes giant sigmoid diverticulum versus communicating abscess. Consider surgical consultation if symptomatic. Chronic renal failure with transplant kidney in right iliac fossa. No evidence of urinary calculus or urinary tract obstruction. Cholelithiasis without evidence of cholecystitis. Mild anterior wedge compression deformity of the L1 vertebra new since 04/06/2017 -PE: LLQ abdominal tenderness, bilateral LE contractures -IV Cipro, IV Flagyl -Zofran -1L NS Past Patient History - Infectious Disease Hx of Infectious Diseases: None - Past Medical History & Family History Past Medical History?: Yes - Past Social History Smoking Status: Never Smoked - CARDIAC Hx Cardiac Disorders: Yes Hx Hypercholesterolemia: Yes Hx Hypertension: Yes - PULMONARY Hx Respiratory Disorders: No - NEUROLOGICAL Hx Neurological Disorder: No - HEENT Hx HEENT Problems: No - RENAL Hx Chronic Kidney Disease: Yes Hx Dialysis: Yes Type of Dialysis Access: L AV fistula Other/Comment: kidney transplant - ENDOCRINE/METABOLIC Hx Endocrine Disorders: Yes Hx Diabetes Mellitus Type 2: Yes - HEMATOLOGICAL/ONCOLOGICAL Hx Blood Disorders: Yes Hx AIDS: No Hx Anemia: Yes Hx Human Immunodeficiency Virus (HIV): No - INTEGUMENTARY Hx Dermatological Problems: No - MUSCULOSKELETAL/RHEUMATOLOGICAL Hx Musculoskeletal Disorders: Yes Hx Arthritis: Yes Hx Falls: No - GASTROINTESTINAL Hx Gastrointestinal Disorders: Yes Hx Diarrhea: Yes Hx Diverticulitis: Yes Hx Nausea: Yes Hx Vomiting: Yes - GENITOURINARY/GYNECOLOGICAL Hx Genitourinary Disorders: Yes Hx Urinary Tract Infection: Yes - PSYCHIATRIC Hx Psychophysiologic Disorder: No Hx Substance Use: No - SURGICAL HISTORY Hx Surgeries: Yes Hx Arteriovenous Shunt: Yes Hx Section: Yes (x2) Hx Vascular Access Device: Yes Other/Comment: RIGHT KIDNEY TRANSPLANT - ANESTHESIA Hx Anesthesia: Yes Hx Anesthesia Reactions: No Hx Malignant Hyperthermia: No Has any member of the family had a problem w/ anesthesia?: No Meds Allergies/Adverse Reactions: Allergies Allergy/AdvReac Type Severity Reaction Status Date / Time cefazolin Allergy ITCHING Verified 06/27/17 09:48 iodine Allergy ITCHING Verified 06/27/17 09:48 vancomycin Allergy ITCHING Verified 06/27/17 09:48 - Medications Medications: Current Medications Acetaminophen (Tylenol 325mg Tab) 650 mg PO Q6 PRN PRN Reason: Pain, moderate (4-7) Acetaminophen (Tylenol 325mg Tab) 650 mg PO Q4 PRN PRN Reason: Fever >100.4 F Last Admin: 06/27/17 16:35 Dose: 650 mg Amlodipine Besylate (Norvasc) 5 mg PO DAILY [facility] Atorvastatin Calcium (Lipitor) 20 mg PO HS [facility] Cholecalciferol (Vitamin D) 1,000 iu PO DAILY [facility] Cinacalcet (Sensipar) 30 mg PO DAILY [facility] Home Med (Tacrolimus [Prograf]) 5 mg PO BID [facility] Ciprofloxacin (Cipro 400mg/200ml Dsw) 400 mg in 200 mls @ 200 mls/hr IVPB Q12 [facility] PRN Reason: Protocol Metronidazole (Flagyl 500mg/100ml Ns) 100 mls @ 100 mls/hr IVPB Q8 [facility] PRN Reason: Protocol Last Admin: 06/27/17 16:41 Dose: Not Given Sodium Chloride (Sodium Chloride 0.9%) 1,000 mls @ 150 mls/hr IV .Q6H40M [facility] Morphine Sulfate (Morphine) 2 mg IVP Q6 PRN PRN Reason: Pain, severe (8-10) Mycophenolate Mofetil (Cellcept Cap) 250 mg PO BID [facility] Last Admin: 06/27/17 18:02 Dose: 250 mg Ondansetron HCl (Zofran Inj) 4 mg IVP Q6 PRN PRN Reason: Nausea/Vomiting Pantoprazole Sodium (Protonix Ec Tab) 40 mg PO DAILY [facility] Prednisone (Prednisone Tab) 5 mg PO DAILY [facility] Tacrolimus (Prograf Cap) 5 mg PO BID [facility] Last Admin: 06/27/17 18:01 Dose: 5 mg Results - Vital Signs Recent Vital Signs: Last Vital Signs Temp 99.6 F 06/27/17 19:22 Pulse 97 H 06/27/17 19:57 Resp 18 06/27/17 19:57 BP 122/57 L 06/27/17 19:22 Pulse Ox 100 06/27/17 19:57 - Labs Result Diagrams: 06/27/17 10:35 06/27/17 10:35 Labs: Laboratory Results - last 24 hr 06/27/17 06/27/17 06/27/17 10:35 10:35 10:45 WBC 13.2 H D RBC 3.56 L Hgb 10.2 L Hct 31.8 L MCV 89.5 MCH 28.5 MCHC 31.9 L RDW 15.1 H Plt Count 294 D MPV 7.3 Neut % (Auto) 80.8 H Lymph % (Auto) 8.8 L [place] % (Auto) 9.4 Eos % (Auto) 0.7 Baso % (Auto) 0.3 Neut # 10.7 H Lymph # 1.2 [place] # 1.2 H Eos # 0.1 Baso # 0.0 Neutrophils % (Manual) 74 Band Neutrophils % 6 H Lymphocytes % (Manual) 9 L Monocytes % (Manual) 10 Eosinophils % (Manual) 1 Toxic Granulation Present Platelet Estimate Normal Hypochromasia (manual) Slight Anisocytosis (manual) Slight pO2 24 L VBG pH 7.40 VBG pCO2 46 VBG HCO3 25.8 VBG Total CO2 29.9 H VBG O2 Sat (Calc) 58.3 VBG Base Excess 3.0 H VBG Potassium 5.5 H Glucose 140 H Lactate 1.2 FiO2 21.0 Sodium 133 134.0 Potassium 4.3 Chloride 105 104.0 Carbon Dioxide 22 Anion Gap 10 BUN 17 Creatinine 0.8 Est GFR ( Amer) > 60 Est GFR (Non-Af Amer) > 60 Random Glucose 132 H Calcium 12.0 H Total Bilirubin 0.4 AST 9 L ALT 25 Alkaline Phosphatase 82 Total Protein 6.3 Albumin 3.1 L Globulin 3.2 Albumin/Globulin Ratio 1.0 Venous Blood Potassium 5.5 H Assessment & Plan - Assessment and Plan (Free Text) Assessment: S/P RENAL THX FOR THE LAST 7 YEARS .. RENAL FUNCTION STABLE ANEMIA OF CKD .. H/H STABLE RECURRENT UTI .. U/A ON THIS ADMISSION OK RECURRENT DIVERTICULITIS .. MMP P : C/O IVF C/O IVAB WILL D/W SURGERY ABOUT THE FEASIBILITY OF DOING RESECTION OF THE TROUBLED AREA ONF THE COLON C/O WITH THE SAME IMMUNOSUPPRESSANT MEDS - Date & Time Date: 06/27/17 Time: 15:00
[2017-06-27] MEDS: Ciprofloxacin 400mg/200ml D5W 400 MG/200 ML BAG IVPB SCH (21:27)
[2017-06-27] MEDS: Sodium Chloride 0.9% 1,000 ML IV SCH (22:16)
[2017-06-28] MEDS: metroNIDAZOLE 500mg/100ml NS 100 ML IVPB SCH ×3 (00:28→16:32)
[2017-06-28] MEDS: Sodium Chloride 0.9% 1,000 ML IV SCH (00:34)
[2017-06-28 06:53] LABS: ALB/GLOB RATIO 0.8 (1.0-2.1); ALKALINE PHOSPHATASE 70 U/L (38-126); ALT/SGPT 26 U/L (9-52); AST/SGOT 9 U/L (14-36); BILIRUBIN,TOTAL 0.4 mg/dl (0.2-1.3); BLOOD UREA NITROGEN 14 mg/dl (7-17); CALCIUM 11.2 mg/dL (8.4-10.2); CARBON DIOXIDE 21 mmol/L (22-30); CHLORIDE 107 mmol/L (98-107); GFR AFRICAN-AMERICAN > 60; GLUCOSE,RANDOM 80 mg/dL (65-105); POTASSIUM 4.1 MMOL/L (3.6-5.0); SODIUM 135 mmol/l (132-148); TOTAL PROTEIN 5.2 G/DL (6.3-8.2)
[2017-06-28 07:01] LABS: HEMATOCRIT 28.1 % (34.0-47.0); MEAN CELL VOLUME 91.7 fl (81.0-99.0); MEAN CORPUSCULAR HGB CONC 30.6 g/dL (33.0-37.0); PARTIAL THROMBOPLASTIN TIME 30.4 Seconds (25.6-37.1); RED CELL DISTRIBUTION WIDTH 15.5 % (11.5-14.5); WHITE BLOOD COUNT 14.3 K/uL (4.8-10.8)
--- NOTE | 2017-06-28 08:48 | CP.PCM.PN ---
Subjective - Date & Time of Evaluation Date of Evaluation: 06/28/17 Time of Evaluation: 08:47 - Subjective Subjective: 62 y/o female with PMHx of diverticulitis, CKD/ESRD s/p renal transplant, DM, HTN, HLD, anemia, and recurrent UTIs seen at bedside this morning resting comfortably in no acute distress. Pt says she is still having significant pain in the left side of her stomach. Pt has not had anything to eat or drink, and has been resting in bed getting her medicine. Pt states that she was seen by surgery yesterday. Pt denies any new episodes of nausea, vomiting or loose stools. Patient has not had a bowel movement since admission but denies constipation. Pt denies F/C/CP/SOB. Objective - Vital Signs/Intake and Output Vital Signs (last 24 hours): Temp Pulse Resp BP Pulse Ox 98.7 F 88 18 146/78 100 06/28/17 08:00 06/28/17 08:00 06/28/17 08:00 06/28/17 08:00 06/28/17 08:00 - Medications Medications: Current Medications Acetaminophen (Tylenol 325mg Tab) 650 mg PO Q6 PRN PRN Reason: Pain, moderate (4-7) Acetaminophen (Tylenol 325mg Tab) 650 mg PO Q4 PRN PRN Reason: Fever >100.4 F Last Admin: 06/27/17 16:35 Dose: 650 mg Amlodipine Besylate (Norvasc) 5 mg PO DAILY [facility] Atorvastatin Calcium (Lipitor) 20 mg PO HS [facility] Last Admin: 06/27/17 21:27 Dose: 20 mg Cholecalciferol (Vitamin D) 1,000 iu PO DAILY [facility] Cinacalcet (Sensipar) 30 mg PO DAILY [facility] Home Med (Tacrolimus [Prograf]) 5 mg PO BID [facility] Ciprofloxacin (Cipro 400mg/200ml Dsw) 400 mg in 200 mls @ 200 mls/hr IVPB Q12 [facility] PRN Reason: Protocol Last Admin: 06/27/17 21:27 Dose: 200 mls/hr Metronidazole (Flagyl 500mg/100ml Ns) 100 mls @ 100 mls/hr IVPB Q8 [facility] PRN Reason: Protocol Last Admin: 06/28/17 00:28 Dose: 100 mls/hr Sodium Chloride (Sodium Chloride 0.9%) 1,000 mls @ 150 mls/hr IV .Q6H40M [facility] Last Admin: 06/28/17 00:34 Dose: 150 mls/hr Morphine Sulfate (Morphine) 2 mg IVP Q6 PRN PRN Reason: Pain, severe (8-10) Last Admin: 06/27/17 22:10 Dose: 2 mg Mycophenolate Mofetil (Cellcept Cap) 250 mg PO BID [facility] Last Admin: 06/27/17 18:02 Dose: 250 mg Ondansetron HCl (Zofran Inj) 4 mg IVP Q6 PRN PRN Reason: Nausea/Vomiting Pantoprazole Sodium (Protonix Ec Tab) 40 mg PO DAILY [facility] Prednisone (Prednisone Tab) 5 mg PO DAILY [facility] Tacrolimus (Prograf Cap) 5 mg PO BID [facility] Last Admin: 06/27/17 18:01 Dose: 5 mg - Labs Labs: 06/28/17 06:15 06/28/17 06:15 PT 18.1 Seconds (9.8-13.1) H 06/28/17 06:15 INR 1.6 (0.9-1.2) H 06/28/17 06:15 APTT 30.4 Seconds (25.6-37.1) 06/28/17 06:15 - Constitutional Appears: Well, Non-toxic, Older Than Stated Age, Cachectic - Head Exam Head Exam: ATRAUMATIC, NORMOCEPHALIC - Eye Exam Eye Exam: EOMI, Normal appearance Pupil Exam: PERRL - ENT Exam ENT Exam: Normal Exam - Neck Exam Neck Exam: Full ROM, Normal Inspection. absent: Tenderness - Respiratory Exam Respiratory Exam: absent: Rhonchi, Wheezes, Respiratory Distress Additional comments: mildly decreased breath sounds at bilateral lung bases - Cardiovascular Exam Cardiovascular Exam: REGULAR RHYTHM, +S1, +S2. absent: JVD - GI/Abdominal Exam GI & Abdominal Exam: Soft, Tenderness, Normal Bowel Sounds. absent: Distended Additional comments: tenderness to palpation of LLQ - Rectal Exam Rectal Exam: Deferred - Extremities Exam Extremities Exam: Normal Capillary Refill, Normal Inspection. absent: Calf Tenderness, Pedal Edema - Neurological Exam Neurological Exam: Alert, Awake, Oriented x3 - Psychiatric Exam Psychiatric exam: Normal Affect, Normal Mood - Skin Skin Exam: Dry, Intact, Normal Color Additional comments: stage 1 sacral decubitis ulcer, POA Assessment and Plan - Assessment and Plan (Free Text) Assessment: 1) Diverticulitis -CT abdomen shows 6 cm thick walled collection of fluid and gas adjacent to sigmoid colon. DDX includes giant sigmoid diverticulitis vs. communicating abscess. No evidence of urinary calculus or urinary tract obstruction. Cholelithiasis without evidence of cholecystitis. Mild anterior wedge compression of L1 vertebra, new since 03/2017 -surgery consult Dr. Sanz on board, await further recommendations -placed on NPO diet -continue IV Cipro, IV Flagyl -Zofran prn for N/V -Tylenol, Morphine prn for pain control 2) Sepsis, resolving -on admission: WBC 13.2; Tmax 100.5, lactic acid 1.2 -today WBC 14.3, afebrile -new lactate ordered; procalcitonin ordered -continue IV Cipro, Flagyl -continue Dextrose 5/0.45% NS 3) Hypercalcemia -started on IV NS 150 ml/hr -Cinacalcet 4) Hx of renal transplant -continue Mycophenolate and Prednisone -Dr. Glez on consult 5) Anemia -Hgb 8.6, down from 10.1 -continue to monitor 6) Hypertension -continue Norvasc -monitor BP 7) Hyperlipidemia -continue Atorvastatin 8) Diabetes mellitus -last HgA1C 5.5 in February 2017 -new A1C ordered 9) Sacral decubitus ulcer, stage 1 -order placed for nursing to move pt q2h -wound care to evaluate -encouraged patient to move in the bed to prevent worsening of pressure ulcer 10) Recurrent UTIs -no urinary symptoms at present -urinalysis pending 11) DVT prophylaxis -SCDs at present -await surgical recs, will consider Heparin therapy 12) Diet -continue NPO diet 13) Code status -full code
[2017-06-28] MEDS: Pantoprazole 40 mg EC Tab PO SCH (09:31)
[2017-06-28] MEDS: Cholecalciferol 1,000 INTLU TAB PO SCH (09:31)
[2017-06-28] MEDS: Ciprofloxacin 400mg/200ml D5W 400 MG/200 ML BAG IVPB SCH ×2 (11:44→22:00)
--- NOTE | 2017-06-28 16:20 | CP.PCM.PN ---
Subjective - Date & Time of Evaluation Date of Evaluation: 06/28/17 Time of Evaluation: 07:00 - Subjective Subjective: GENERAL SURGERY PROGRESS NOTE FOR DR. RAM Patient seen and examined at bedside. She denies nausea or vomiting but states that she had nausea when she ate before. She denies BM since she came to the hospital. She still has LLQ abdominal pain. Objective - Vital Signs/Intake and Output Vital Signs (last 24 hours): Temp Pulse Resp BP Pulse Ox 97.4 F L 80 20 110/68 98 06/28/17 13:41 06/28/17 13:41 06/28/17 13:41 06/28/17 13:41 06/28/17 13:41 - Medications Medications: Current Medications Acetaminophen (Tylenol 325mg Tab) 650 mg PO Q6 PRN PRN Reason: Pain, moderate (4-7) Acetaminophen (Tylenol 325mg Tab) 650 mg PO Q4 PRN PRN Reason: Fever >100.4 F Last Admin: 06/27/17 16:35 Dose: 650 mg Amlodipine Besylate (Norvasc) 5 mg PO DAILY [facility] Last Admin: 06/28/17 09:30 Dose: 5 mg Atorvastatin Calcium (Lipitor) 20 mg PO HS [facility] Last Admin: 06/27/17 21:27 Dose: 20 mg Cholecalciferol (Vitamin D) 1,000 iu PO DAILY [facility] Last Admin: 06/28/17 09:31 Dose: 1,000 iu Cinacalcet (Sensipar) 30 mg PO DAILY [facility] Last Admin: 06/28/17 09:31 Dose: 30 mg Home Med (Tacrolimus [Prograf]) 5 mg PO BID [facility] Ciprofloxacin (Cipro 400mg/200ml Dsw) 400 mg in 200 mls @ 200 mls/hr IVPB Q12 [facility] PRN Reason: Protocol Last Admin: 06/28/17 11:44 Dose: 200 mls/hr Metronidazole (Flagyl 500mg/100ml Ns) 100 mls @ 100 mls/hr IVPB Q8 [facility] PRN Reason: Protocol Last Admin: 06/28/17 11:43 Dose: 100 mls/hr Dextrose/Sodium Chloride (Dextrose 5%-0.45% Ns 500 Ml) 500 mls @ 125 mls/hr IV .Q4H [facility] Stop: 06/29/17 14:54 Last Admin: 06/28/17 15:10 Dose: 125 mls/hr Morphine Sulfate (Morphine) 2 mg IVP Q6 PRN PRN Reason: Pain, severe (8-10) Last Admin: 06/27/17 22:10 Dose: 2 mg Mycophenolate Mofetil (Cellcept Cap) 250 mg PO BID [facility] Last Admin: 06/28/17 09:33 Dose: 250 mg Ondansetron HCl (Zofran Inj) 4 mg IVP Q6 PRN PRN Reason: Nausea/Vomiting Last Admin: 06/28/17 15:15 Dose: 4 mg Pantoprazole Sodium (Protonix Ec Tab) 40 mg PO DAILY [facility] Last Admin: 06/28/17 09:31 Dose: 40 mg Prednisone (Prednisone Tab) 5 mg PO DAILY [facility] Last Admin: 06/28/17 09:31 Dose: 5 mg Tacrolimus (Prograf Cap) 5 mg PO BID [facility] Last Admin: 06/28/17 09:30 Dose: 5 mg - Labs Labs: 06/28/17 06:15 06/28/17 06:15 PT 18.1 Seconds (9.8-13.1) H 06/28/17 06:15 INR 1.6 (0.9-1.2) H 06/28/17 06:15 APTT 30.4 Seconds (25.6-37.1) 06/28/17 06:15 - Constitutional Appears: Non-toxic, No Acute Distress - Head Exam Head Exam: ATRAUMATIC, NORMAL INSPECTION - Eye Exam Eye Exam: EOMI, Normal appearance - Respiratory Exam Respiratory Exam: NORMAL BREATHING PATTERN. absent: Respiratory Distress - Cardiovascular Exam Cardiovascular Exam: +S1, +S2 - GI/Abdominal Exam GI & Abdominal Exam: Soft, Tenderness (tender in LLQ). absent: Distended, Firm , Guarding, Rigid, Rebound - Neurological Exam Neurological Exam: Alert, Awake, Oriented x3 - Psychiatric Exam Psychiatric exam: Normal Affect, Normal Mood - Skin Skin Exam: Dry, Normal Color, Warm Assessment and Plan - Assessment and Plan (Free Text) Assessment: 62yo F with CKD s/p kidney transplant, HTN, DM, recurrent diverticulitis and UTI presents to the ED with abdominal pain, vomiting and loose stools and found to have large diverticulum vs abscess adjacent to sigmoid - Afebrile, VSS - Leukocytosis WBC 14.3 - CT: 6cm thick walled collection of fluid & gas adjacent to sigmoid colon, increased in size since 04/06/17. DDx: giant sigmoid diverticulum vs communicating abscess. - Patient poor surgical candidate at this time - Will treat conservatively for now with bowel rest and IV antibiotics ( currently on Cipro and Flagyl) - Will do barium enema on Saturday since patient was unable to do colonoscopy as outpatient - Discussed plan with Dr. Yvon Torres PGY-3
--- NOTE | 2017-06-28 17:50 | CP.PCM.PN ---
Subjective - Date & Time of Evaluation Date of Evaluation: 06/28/17 Time of Evaluation: 16:00 - Subjective Subjective: SEEN ON RENAL F/U C/O CONSTIPATION AND LLQ PAIN STATES DID NOT PASS ANY BM FOR 3-5 DAYS ( CANNOT REMEMBER WHEN SHE PASSED HER LAST BM ALL PREVIOUS EMR REVIEWED .. SURGICAL NOTE REFLECT POOR SURGICAL CANDIDATE AT PRESENT PT IS ON IVF AND IVAB REMAINS NPO 2/2 NUASEA AND POSSIBLE VOMITTING IF SHE EATS Objective - Vital Signs/Intake and Output Vital Signs (last 24 hours): Temp Pulse Resp BP Pulse Ox 98.7 F 86 17 138/65 96 06/28/17 16:00 06/28/17 16:00 06/28/17 16:00 06/28/17 16:00 06/28/17 16:00 - Medications Medications: Current Medications Acetaminophen (Tylenol 325mg Tab) 650 mg PO Q6 PRN PRN Reason: Pain, moderate (4-7) Acetaminophen (Tylenol 325mg Tab) 650 mg PO Q4 PRN PRN Reason: Fever >100.4 F Last Admin: 06/27/17 16:35 Dose: 650 mg Amlodipine Besylate (Norvasc) 5 mg PO DAILY [facility] Last Admin: 06/28/17 09:30 Dose: 5 mg Atorvastatin Calcium (Lipitor) 20 mg PO HS [facility] Last Admin: 06/27/17 21:27 Dose: 20 mg Cholecalciferol (Vitamin D) 1,000 iu PO DAILY [facility] Last Admin: 06/28/17 09:31 Dose: 1,000 iu Cinacalcet (Sensipar) 30 mg PO DAILY [facility] Last Admin: 06/28/17 09:31 Dose: 30 mg Home Med (Tacrolimus [Prograf]) 5 mg PO BID [facility] Ciprofloxacin (Cipro 400mg/200ml Dsw) 400 mg in 200 mls @ 200 mls/hr IVPB Q12 [facility] PRN Reason: Protocol Last Admin: 06/28/17 11:44 Dose: 200 mls/hr Metronidazole (Flagyl 500mg/100ml Ns) 100 mls @ 100 mls/hr IVPB Q8 [facility] PRN Reason: Protocol Last Admin: 06/28/17 16:32 Dose: 100 mls/hr Dextrose/Sodium Chloride (Dextrose 5%-0.45% Ns 500 Ml) 500 mls @ 125 mls/hr IV .Q4H [facility] Stop: 06/29/17 14:54 Last Admin: 06/28/17 15:10 Dose: 125 mls/hr Morphine Sulfate (Morphine) 2 mg IVP Q6 PRN PRN Reason: Pain, severe (8-10) Last Admin: 06/27/17 22:10 Dose: 2 mg Mycophenolate Mofetil (Cellcept Cap) 250 mg PO BID [facility] Last Admin: 06/28/17 16:33 Dose: 250 mg Ondansetron HCl (Zofran Inj) 4 mg IVP Q6 PRN PRN Reason: Nausea/Vomiting Last Admin: 06/28/17 15:15 Dose: 4 mg Pantoprazole Sodium (Protonix Ec Tab) 40 mg PO DAILY [facility] Last Admin: 06/28/17 09:31 Dose: 40 mg Prednisone (Prednisone Tab) 5 mg PO DAILY [facility] Last Admin: 06/28/17 09:31 Dose: 5 mg Tacrolimus (Prograf Cap) 5 mg PO BID [facility] Last Admin: 06/28/17 16:32 Dose: 5 mg - Labs Labs: 06/28/17 06:15 06/28/17 06:15 PT 18.1 Seconds (9.8-13.1) H 06/28/17 06:15 INR 1.6 (0.9-1.2) H 06/28/17 06:15 APTT 30.4 Seconds (25.6-37.1) 06/28/17 06:15 Assessment and Plan - Assessment and Plan (Free Text) Assessment: ESRD .. S/P RENAL TRANSPLANT FOR THE LAST 4 YEARS .. RENAL FUNCTION STABLE ANEMIA .. MULTIPLE ETIOLOGIES .. NEEDS W/U HYPERCALCEMIA .. ON IVF RE CURRENT DIVERTICULITIS .. ANY INSTRUMENTATION ( LIKE ENEMA , COLONOSCOPE BARIUM ENEMA ) IS FRAUGHT WITH POSSIBLE COLONIC PERFORATION P : C/O IVF C/O IVAB C/O CURRENT MEDS WILL D/W SURGERY .. FOR POSSILE SIGMOIDECTOMY WHEN PT IS MORE CLINICALLY STABLE
[2017-06-29] MEDS: metroNIDAZOLE 500mg/100ml NS 100 ML IVPB SCH ×3 (00:53→16:47)
[2017-06-29 07:57] LABS: HEMATOCRIT 30.1 % (34.0-47.0); MEAN CORPUSCULAR HEMOGLOBIN 27.9 pg (27.0-31.0); MEAN CORPUSCULAR HGB CONC 31.3 g/dL (33.0-37.0); RED CELL DISTRIBUTION WIDTH 14.8 % (11.5-14.5); WHITE BLOOD COUNT 14.1 K/uL (4.8-10.8)
[2017-06-29 08:04] LABS: ALKALINE PHOSPHATASE 77 U/L (38-126); ALT/SGPT 25 U/L (9-52); AST/SGOT 10 U/L (14-36); BILIRUBIN,TOTAL 0.3 mg/dl (0.2-1.3); BLOOD UREA NITROGEN 14 mg/dl (7-17); CALCIUM 10.9 mg/dL (8.4-10.2); CARBON DIOXIDE 23 mmol/L (22-30); CHLORIDE 102 mmol/L (98-107); GFR AFRICAN-AMERICAN > 60; GLUCOSE,RANDOM 151 mg/dL (65-105); SODIUM 132 mmol/l (132-148); TOTAL PROTEIN 5.2 G/DL (6.3-8.2)
[2017-06-29 08:07] LABS: ALB/GLOB RATIO 0.8 (1.0-2.1)
[2017-06-29] MEDS: Cholecalciferol 1,000 INTLU TAB PO SCH (08:58)
[2017-06-29] MEDS: Pantoprazole 40 mg EC Tab PO SCH (08:58)
[2017-06-29] MEDS: Ciprofloxacin 400mg/200ml D5W 400 MG/200 ML BAG IVPB SCH (09:00)
--- NOTE | 2017-06-29 09:32 | CP.PCM.PN ---
Subjective - Date & Time of Evaluation Date of Evaluation: 06/29/17 Time of Evaluation: 07:45 - Subjective Subjective: General Surgery Dr. Sanz Pt S&E @bedside. pt reports 2 episodes NBNB vomiting overnight w/ continues nausea this AM. Pt reports continued LLQ abd pain. pt denies F/C. (+)BM. Pt is NPO. Objective - Vital Signs/Intake and Output Vital Signs (last 24 hours): Temp Pulse Resp BP Pulse Ox 98.3 F 84 20 135/59 L 99 06/29/17 08:00 06/29/17 08:57 06/29/17 08:00 06/29/17 08:57 06/29/17 08:00 - Medications Medications: Current Medications Acetaminophen (Tylenol 325mg Tab) 650 mg PO Q6 PRN PRN Reason: Pain, moderate (4-7) Acetaminophen (Tylenol 325mg Tab) 650 mg PO Q4 PRN PRN Reason: Fever >100.4 F Last Admin: 06/27/17 16:35 Dose: 650 mg Amlodipine Besylate (Norvasc) 5 mg PO DAILY [facility] Last Admin: 06/29/17 08:57 Dose: 5 mg Atorvastatin Calcium (Lipitor) 20 mg PO HS [facility] Last Admin: 06/28/17 22:07 Dose: 20 mg Cholecalciferol (Vitamin D) 1,000 iu PO DAILY [facility] Last Admin: 06/29/17 08:58 Dose: 1,000 iu Cinacalcet (Sensipar) 30 mg PO DAILY [facility] Last Admin: 06/29/17 08:58 Dose: 30 mg Home Med (Tacrolimus [Prograf]) 5 mg PO BID [facility] Ciprofloxacin (Cipro 400mg/200ml Dsw) 400 mg in 200 mls @ 200 mls/hr IVPB Q12 [facility] PRN Reason: Protocol Last Admin: 06/29/17 09:00 Dose: 200 mls/hr Metronidazole (Flagyl 500mg/100ml Ns) 100 mls @ 100 mls/hr IVPB Q8 [facility] PRN Reason: Protocol Last Admin: 06/29/17 09:00 Dose: 100 mls/hr Dextrose/Sodium Chloride (Dextrose 5%-0.45% Ns 500 Ml) 500 mls @ 125 mls/hr IV .Q4H [facility] Stop: 06/29/17 14:54 Last Admin: 06/29/17 07:03 Dose: 125 mls/hr Morphine Sulfate (Morphine) 2 mg IVP Q6 PRN PRN Reason: Pain, severe (8-10) Last Admin: 06/27/17 22:10 Dose: 2 mg Mycophenolate Mofetil (Cellcept Cap) 250 mg PO BID [facility] Last Admin: 06/29/17 08:58 Dose: 250 mg Ondansetron HCl (Zofran Inj) 4 mg IVP Q4 PRN PRN Reason: Nausea/Vomiting Pantoprazole Sodium (Protonix Ec Tab) 40 mg PO DAILY [facility] Last Admin: 06/29/17 08:58 Dose: 40 mg Prednisone (Prednisone Tab) 5 mg PO DAILY [facility] Last Admin: 06/29/17 08:57 Dose: 5 mg Tacrolimus (Prograf Cap) 5 mg PO BID [facility] Last Admin: 06/29/17 08:58 Dose: 5 mg - Labs Labs: 06/29/17 05:30 06/29/17 05:30 PT 18.1 Seconds (9.8-13.1) H 06/28/17 06:15 INR 1.6 (0.9-1.2) H 06/28/17 06:15 APTT 30.4 Seconds (25.6-37.1) 06/28/17 06:15 - Constitutional Appears: Non-toxic, No Acute Distress - Head Exam Head Exam: NORMAL INSPECTION - Eye Exam Eye Exam: Normal appearance - ENT Exam ENT Exam: Mucous Membranes Moist - Respiratory Exam Respiratory Exam: NORMAL BREATHING PATTERN. absent: Accessory Muscle Use, Respiratory Distress - Cardiovascular Exam Cardiovascular Exam: absent: Bradycardia, Tachycardia - GI/Abdominal Exam GI & Abdominal Exam: Distended (mild), Firm (LLQ), Guarding (voluntary), Soft, Tenderness (LLQ). absent: Rebound - Neurological Exam Neurological Exam: Alert, Awake, Oriented x3 - Psychiatric Exam Psychiatric exam: Normal Affect, Normal Mood - Skin Skin Exam: Dry, Intact, Normal Color, Warm Assessment and Plan - Assessment and Plan (Free Text) Assessment: 62 y/o F w/ diverticulitis - continued Leukocytosis - continue to monitor - recommend ID consult and change of Abx - Barium enema Saturday for further assessment of diverticulitis - cont NPO - cont pain management - increased Zofran to Q4 PRN N/V - encourage OOB to chair/Amb - GI/DVT PPx Pt discussed w/ Dr. Yvon Man DO PGY2
--- NOTE | 2017-06-29 11:04 | CP.PCM.PN ---
Subjective - Date & Time of Evaluation Date of Evaluation: 06/29/17 Time of Evaluation: 09:02 - Subjective Subjective: Patient seen and examined at bedside. 2 episodes NBNB vomiting overnight and continues with nausea. Continues to be NPO. Afebrile overnight. Surgery saw patient in the AM. LLQ abdominal pain is still present though improved. Denies chest pain, sob, palpitations, chills. Objective - Vital Signs/Intake and Output Vital Signs (last 24 hours): Temp Pulse Resp BP Pulse Ox 98.3 F 84 20 135/59 L 99 06/29/17 08:00 06/29/17 08:57 06/29/17 08:00 06/29/17 08:57 06/29/17 08:00 - Medications Medications: Current Medications Acetaminophen (Tylenol 325mg Tab) 650 mg PO Q6 PRN PRN Reason: Pain, moderate (4-7) Acetaminophen (Tylenol 325mg Tab) 650 mg PO Q4 PRN PRN Reason: Fever >100.4 F Last Admin: 06/27/17 16:35 Dose: 650 mg Amlodipine Besylate (Norvasc) 5 mg PO DAILY [facility] Last Admin: 06/29/17 08:57 Dose: 5 mg Atorvastatin Calcium (Lipitor) 20 mg PO HS [facility] Last Admin: 06/28/17 22:07 Dose: 20 mg Cholecalciferol (Vitamin D) 1,000 iu PO DAILY [facility] Last Admin: 06/29/17 08:58 Dose: 1,000 iu Cinacalcet (Sensipar) 30 mg PO DAILY [facility] Last Admin: 06/29/17 08:58 Dose: 30 mg Home Med (Tacrolimus [Prograf]) 5 mg PO BID [facility] Ciprofloxacin (Cipro 400mg/200ml Dsw) 400 mg in 200 mls @ 200 mls/hr IVPB Q12 [facility] PRN Reason: Protocol Last Admin: 06/29/17 09:00 Dose: 200 mls/hr Metronidazole (Flagyl 500mg/100ml Ns) 100 mls @ 100 mls/hr IVPB Q8 [facility] PRN Reason: Protocol Last Admin: 06/29/17 09:00 Dose: 100 mls/hr Dextrose/Sodium Chloride (Dextrose 5%-0.45% Ns 500 Ml) 500 mls @ 125 mls/hr IV .Q4H [facility] Stop: 06/29/17 14:54 Last Admin: 06/29/17 07:03 Dose: 125 mls/hr Morphine Sulfate (Morphine) 2 mg IVP Q6 PRN PRN Reason: Pain, severe (8-10) Last Admin: 06/27/17 22:10 Dose: 2 mg Mycophenolate Mofetil (Cellcept Cap) 250 mg PO BID [facility] Last Admin: 06/29/17 08:58 Dose: 250 mg Ondansetron HCl (Zofran Inj) 4 mg IVP Q4 PRN PRN Reason: Nausea/Vomiting Pantoprazole Sodium (Protonix Ec Tab) 40 mg PO DAILY [facility] Last Admin: 06/29/17 08:58 Dose: 40 mg Prednisone (Prednisone Tab) 5 mg PO DAILY [facility] Last Admin: 06/29/17 08:57 Dose: 5 mg Tacrolimus (Prograf Cap) 5 mg PO BID [facility] Last Admin: 06/29/17 08:58 Dose: 5 mg - Labs Labs: 06/29/17 05:30 06/29/17 05:30 PT 18.1 Seconds (9.8-13.1) H 06/28/17 06:15 INR 1.6 (0.9-1.2) H 06/28/17 06:15 APTT 30.4 Seconds (25.6-37.1) 06/28/17 06:15 - Constitutional Appears: Non-toxic, No Acute Distress, Chronically Ill - Head Exam Head Exam: ATRAUMATIC, NORMAL INSPECTION, NORMOCEPHALIC - Eye Exam Eye Exam: Normal appearance - Neck Exam Neck Exam: Normal Inspection - Respiratory Exam Respiratory Exam: Clear to Ausculation Bilateral, NORMAL BREATHING PATTERN - Cardiovascular Exam Cardiovascular Exam: REGULAR RHYTHM, +S1, +S2. absent: Murmur - GI/Abdominal Exam GI & Abdominal Exam: Tenderness (LLQ), Mass (LLQ), Normal Bowel Sounds - Extremities Exam Extremities Exam: Normal Inspection - Neurological Exam Neurological Exam: Alert, Awake - Psychiatric Exam Psychiatric exam: Normal Affect, Normal Mood - Skin Skin Exam: Dry, Intact, Normal Color, Warm Assessment and Plan - Assessment and Plan (Free Text) Assessment: 1) Diverticulitis, recurrent -CT abdomen shows 6 cm thick walled collection of fluid and gas adjacent to sigmoid colon. DDX includes giant sigmoid diverticulitis vs. communicating abscess. No evidence of urinary calculus or urinary tract obstruction. Cholelithiasis without evidence of cholecystitis. Mild anterior wedge compression of L1 vertebra, new since 03/2017 -surgery consult Dr. Sanz on board, appreciate recommendations -Barium enema Saturday for further assessment of diverticulitis and recommends ID consult, Dr. Rodriguez contacted -NPO diet -continue IV Cipro, IV Flagyl -Zofran prn for N/V -Tylenol, Morphine prn for pain control 2) Sepsis, resolving -on admission: WBC 13.2; Tmax 100.5, lactic acid 1.2, started on cipro/flagyl -today WBC 14.3, afebrile, Lactate normal -procalcitonin pending -continue Dextrose 5/0.45% NS 3) Hypercalcemia -IV hydration -Cinacalcet 4) Hx of renal transplant -continue Mycophenolate and Prednisone -Dr. Glez on consult 5) Anemia -Hgb improved to 9.4 from 8.6 -continue to monitor 6) Hypertension -Stable -continue Norvasc -monitor BP 7) Hyperlipidemia -continue Atorvastati 8) Sacral decubitus ulcer, stage 1 -move pt q2h -wound care to evaluate -encouraged patient to move in the bed to prevent worsening of pressure ulcer 9) Recurrent UTIs -no urinary symptoms at present -urinalysis pending 10) DVT prophylaxis -SCDs/heparin Code status -full code
--- NOTE | 2017-06-29 14:26 | CP.PCM.PN ---
Subjective - Date & Time of Evaluation Date of Evaluation: 06/29/17 Time of Evaluation: 14:24 - Subjective Subjective: I D NOTE PATIENT IS S/P RENAL TRANSPLANT,DIVERTICULAR DISEASE ADMITTED VIA ER c NAUSEA ,VOMITING,ABDOMINAL PAIN. HAS PERSISTENT LEUKOCYTOSIS (14) HAVE ADJUSTED DOSE OF CIPRO AND ADDED AZACTAM Objective - Vital Signs/Intake and Output Vital Signs (last 24 hours): Temp Pulse Resp BP Pulse Ox 97.8 F 81 18 100/40 L 100 06/29/17 12:00 06/29/17 12:00 06/29/17 12:00 06/29/17 12:00 06/29/17 12:00 - Medications Medications: Current Medications Acetaminophen (Tylenol 325mg Tab) 650 mg PO Q6 PRN PRN Reason: Pain, moderate (4-7) Acetaminophen (Tylenol 325mg Tab) 650 mg PO Q4 PRN PRN Reason: Fever >100.4 F Last Admin: 06/27/17 16:35 Dose: 650 mg Amlodipine Besylate (Norvasc) 5 mg PO DAILY [facility] Last Admin: 06/29/17 08:57 Dose: 5 mg Atorvastatin Calcium (Lipitor) 20 mg PO HS [facility] Last Admin: 06/28/17 22:07 Dose: 20 mg Cholecalciferol (Vitamin D) 1,000 iu PO DAILY [facility] Last Admin: 06/29/17 08:58 Dose: 1,000 iu Cinacalcet (Sensipar) 30 mg PO DAILY [facility] Last Admin: 06/29/17 08:58 Dose: 30 mg Heparin Sodium (Porcine) (Heparin) 5,000 units SC Q8 [facility] PRN Reason: Protocol Home Med (Tacrolimus [Prograf]) 5 mg PO BID [facility] Metronidazole (Flagyl 500mg/100ml Ns) 100 mls @ 100 mls/hr IVPB Q8 [facility] PRN Reason: Protocol Last Admin: 06/29/17 09:00 Dose: 100 mls/hr Dextrose/Sodium Chloride (Dextrose 5%-0.45% Ns 500 Ml) 500 mls @ 125 mls/hr IV .Q4H [facility] Stop: 06/29/17 14:54 Last Admin: 06/29/17 07:03 Dose: 125 mls/hr Aztreonam 1 gm/ Sodium (Chloride) 100 mls @ 100 mls/hr IVPB Q12 [facility] PRN Reason: Protocol Ciprofloxacin (Cipro 200mg/100ml D5w) 100 mls @ 100 mls/hr IVPB Q12 [facility] Morphine Sulfate (Morphine) 2 mg IVP Q6 PRN PRN Reason: Pain, severe (8-10) Last Admin: 06/27/17 22:10 Dose: 2 mg Mycophenolate Mofetil (Cellcept Cap) 250 mg PO BID [facility] Last Admin: 06/29/17 08:58 Dose: 250 mg Ondansetron HCl (Zofran Inj) 4 mg IVP Q4 PRN PRN Reason: Nausea/Vomiting Pantoprazole Sodium (Protonix Ec Tab) 40 mg PO DAILY [facility] Last Admin: 06/29/17 08:58 Dose: 40 mg Prednisone (Prednisone Tab) 5 mg PO DAILY [facility] Last Admin: 06/29/17 08:57 Dose: 5 mg Tacrolimus (Prograf Cap) 5 mg PO BID [facility] Last Admin: 06/29/17 08:58 Dose: 5 mg - Labs Labs: 06/29/17 05:30 06/29/17 05:30 PT 18.1 Seconds (9.8-13.1) H 06/28/17 06:15 INR 1.6 (0.9-1.2) H 06/28/17 06:15 APTT 30.4 Seconds (25.6-37.1) 06/28/17 06:15
[2017-06-29] MEDS: Ciprofloxacin 200mg/100ml D5W 100 ML IVPB SCH (20:37)
[2017-06-29] MEDS ORDERED: Sodium Chloride 0.9% 1,000 ML IV SCH (21:15)
[2017-06-29] MEDS ORDERED: Sodium Chloride 0.9% 500 ML IV SCH (21:15)
[2017-06-29] MEDS: Aztreonam 1 GM in Sodium Chloride 0.9% 100 ML IVPB SCH (21:30)
[2017-06-30] MEDS: metroNIDAZOLE 500mg/100ml NS 100 ML IVPB SCH ×3 (00:30→17:00)
[2017-06-30 08:02] LABS: BASO % 0.2 % (0.0-2.0); EOS # 0.1 K/uL (0.0-0.7); EOS % 0.7 % (0.0-4.0); HEMATOCRIT 27.1 % (34.0-47.0); LYMPH # 1.1 K/uL (1.0-4.3); LYMPH % 12.9 % (20.0-40.0); MEAN CELL VOLUME 87.9 fl (81.0-99.0); MEAN CORPUSCULAR HEMOGLOBIN 28.2 pg (27.0-31.0); MEAN CORPUSCULAR HGB CONC 32.1 g/dL (33.0-37.0); MEAN PLATELET VOLUME 7.1 fl (7.2-11.7); MONO # 0.6 K/uL (0.0-0.8); MONO % 6.8 % (0.0-10.0); NEUT # 6.8 K/uL (1.8-7.0); NEUT % 79.4 % (50.0-75.0); RED CELL DISTRIBUTION WIDTH 15.1 % (11.5-14.5); WHITE BLOOD COUNT 8.6 K/uL (4.8-10.8)
[2017-06-30 08:06] LABS: ALB/GLOB RATIO 0.8 (1.0-2.1); ALKALINE PHOSPHATASE 69 U/L (38-126); ALT/SGPT 17 U/L (9-52); AST/SGOT 13 U/L (14-36); BILIRUBIN,TOTAL 0.2 mg/dl (0.2-1.3); BLOOD UREA NITROGEN 12 mg/dl (7-17); CALCIUM 10.6 mg/dL (8.4-10.2); CARBON DIOXIDE 23 mmol/L (22-30); CHLORIDE 104 mmol/L (98-107); GFR AFRICAN-AMERICAN > 60; GLUCOSE,RANDOM 95 mg/dL (65-105); POTASSIUM 3.4 MMOL/L (3.6-5.0); SODIUM 133 mmol/l (132-148); TOTAL PROTEIN 4.8 G/DL (6.3-8.2)
[2017-06-30] MEDS: Cholecalciferol 1,000 INTLU TAB PO SCH (08:51)
[2017-06-30] MEDS: Pantoprazole 40 mg EC Tab PO SCH (08:52)
[2017-06-30] MEDS: Aztreonam 1 GM in Sodium Chloride 0.9% 100 ML IVPB SCH ×2 (09:00→22:33)
[2017-06-30] MEDS: Ciprofloxacin 200mg/100ml D5W 100 ML IVPB SCH ×2 (09:00→21:06)
--- NOTE | 2017-06-30 09:55 | CP.PCM.PN ---
Subjective - Date & Time of Evaluation Date of Evaluation: 06/30/17 Time of Evaluation: 08:51 - Subjective Subjective: Patient seen and examined at bedside. No episodes of vomiting overnight. Continues to be NPO. Afebrile overnight. LLQ abdominal pain is still present though improved. Denies chest pain, sob, palpitations, chills. Surgery following. Objective - Vital Signs/Intake and Output Vital Signs (last 24 hours): Temp Pulse Resp BP Pulse Ox 97.8 F 71 18 107/67 100 06/30/17 08:00 06/30/17 08:50 06/30/17 08:00 06/30/17 08:50 06/30/17 08:00 - Medications Medications: Current Medications Acetaminophen (Tylenol 325mg Tab) 650 mg PO Q6 PRN PRN Reason: Pain, moderate (4-7) Acetaminophen (Tylenol 325mg Tab) 650 mg PO Q4 PRN PRN Reason: Fever >100.4 F Last Admin: 06/27/17 16:35 Dose: 650 mg Amlodipine Besylate (Norvasc) 5 mg PO DAILY [facility] Last Admin: 06/30/17 08:50 Dose: 5 mg Atorvastatin Calcium (Lipitor) 20 mg PO HS [facility] Last Admin: 06/29/17 21:52 Dose: 20 mg Cholecalciferol (Vitamin D) 1,000 iu PO DAILY [facility] Last Admin: 06/30/17 08:51 Dose: 1,000 iu Cinacalcet (Sensipar) 30 mg PO DAILY [facility] Last Admin: 06/30/17 08:52 Dose: 30 mg Heparin Sodium (Porcine) (Heparin) 5,000 units SC Q8 [facility] PRN Reason: Protocol Last Admin: 06/30/17 00:30 Dose: 5,000 units Home Med (Tacrolimus [Prograf]) 5 mg PO BID [facility] Metronidazole (Flagyl 500mg/100ml Ns) 100 mls @ 100 mls/hr IVPB Q8 [facility] PRN Reason: Protocol Last Admin: 06/30/17 08:46 Dose: 100 mls/hr Aztreonam 1 gm/ Sodium (Chloride) 100 mls @ 100 mls/hr IVPB Q12 [facility] PRN Reason: Protocol Last Admin: 06/30/17 09:00 Dose: 100 mls/hr Ciprofloxacin (Cipro 200mg/100ml D5w) 100 mls @ 100 mls/hr IVPB Q12 [facility] Last Admin: 06/30/17 09:00 Dose: 100 mls/hr Dextrose/Sodium Chloride (Dextrose 5%-0.45% Ns 500 Ml) 500 mls @ 100 mls/hr IV .Q5H [facility] Stop: 07/01/17 07:58 Last Admin: 06/30/17 08:15 Dose: 100 mls/hr Morphine Sulfate (Morphine) 2 mg IVP Q6 PRN PRN Reason: Pain, severe (8-10) Last Admin: 06/27/17 22:10 Dose: 2 mg Mycophenolate Mofetil (Cellcept Cap) 250 mg PO BID [facility] Last Admin: 06/30/17 08:49 Dose: 250 mg Ondansetron HCl (Zofran Inj) 4 mg IVP Q4 PRN PRN Reason: Nausea/Vomiting Pantoprazole Sodium (Protonix Ec Tab) 40 mg PO DAILY [facility] Last Admin: 06/30/17 08:52 Dose: 40 mg Prednisone (Prednisone Tab) 5 mg PO DAILY [facility] Last Admin: 06/30/17 08:50 Dose: 5 mg Tacrolimus (Prograf Cap) 5 mg PO BID [facility] Last Admin: 06/30/17 08:52 Dose: 5 mg - Labs Labs: 06/30/17 06:30 06/30/17 06:30 PT 18.1 Seconds (9.8-13.1) H 06/28/17 06:15 INR 1.6 (0.9-1.2) H 06/28/17 06:15 APTT 30.4 Seconds (25.6-37.1) 06/28/17 06:15 - Constitutional Appears: Non-toxic, No Acute Distress, Chronically Ill - Head Exam Head Exam: ATRAUMATIC, NORMAL INSPECTION, NORMOCEPHALIC - Respiratory Exam Respiratory Exam: Clear to Ausculation Bilateral, NORMAL BREATHING PATTERN - Cardiovascular Exam Cardiovascular Exam: REGULAR RHYTHM, +S1, +S2. absent: Murmur - GI/Abdominal Exam GI & Abdominal Exam: Soft, Tenderness (LLQ), Mass (LLQ), Normal Bowel Sounds - Extremities Exam Extremities Exam: Normal Inspection - Neurological Exam Neurological Exam: Alert, Awake - Psychiatric Exam Psychiatric exam: Normal Affect, Normal Mood - Skin Skin Exam: Dry, Intact, Normal Color, Warm Assessment and Plan - Assessment and Plan (Free Text) Assessment: 1) Diverticulitis, recurrent -CT abdomen shows 6 cm thick walled collection of fluid and gas adjacent to sigmoid colon. DDX includes giant sigmoid diverticulitis vs. communicating abscess. No evidence of urinary calculus or urinary tract obstruction. Cholelithiasis without evidence of cholecystitis. Mild anterior wedge compression of L1 vertebra, new since 03/2017 -surgery consult Dr. Sanz on board, appreciate recommendations -Possible Barium enema for further assessment of diverticulitis and recommends ID consult, Dr. Rodriguez on board -NPO diet -continue IV Cipro, IV Flagyl -Zofran prn for N/V -procalcitonin 0.77 -Tylenol, Morphine prn for pain control -continue Dextrose 5/0.45% NS 2) Sepsis, resolved -on admission: WBC 13.2; Tmax 100.5, lactic acid 1.2, started on cipro/flagyl -now afebrile, Lactate normal, no leukocytosis 3) Hypercalcemia -IV hydration -Cinacalcet 4) Hx of renal transplant -continue Mycophenolate and Prednisone -Dr. Glez on consult 5) Anemia -Hgb 8.7 -continue to monitor 6) Hypertension -Stable -continue Norvasc -monitor BP 7) Hyperlipidemia -continue Atorvastatin 8) Sacral decubitus ulcer, stage 1 -move pt q2h -wound care to evaluate -encouraged patient to move in the bed to prevent worsening of pressure ulcer 9) Recurrent UTIs -no urinary symptoms at present -urinalysis pending 10) DVT prophylaxis -SCDs/heparin Code status -full code
--- NOTE | 2017-06-30 10:14 | CP.PCM.PN ---
Subjective - Date & Time of Evaluation Date of Evaluation: 06/30/17 Time of Evaluation: 07:00 - Subjective Subjective: GENERAL SURGERY PROGRESS NOTE FOR DR. RAM Patient seen and examined at bedside. She denies nausea or vomiting. She still has the same LLQ abdominal pain. She had a soft BM. Objective - Vital Signs/Intake and Output Vital Signs (last 24 hours): Temp Pulse Resp BP Pulse Ox 97.8 F 71 18 107/67 100 06/30/17 08:00 06/30/17 08:50 06/30/17 08:00 06/30/17 08:50 06/30/17 08:00 - Medications Medications: Current Medications Acetaminophen (Tylenol 325mg Tab) 650 mg PO Q6 PRN PRN Reason: Pain, moderate (4-7) Acetaminophen (Tylenol 325mg Tab) 650 mg PO Q4 PRN PRN Reason: Fever >100.4 F Last Admin: 06/27/17 16:35 Dose: 650 mg Amlodipine Besylate (Norvasc) 5 mg PO DAILY [facility] Last Admin: 06/30/17 08:50 Dose: 5 mg Atorvastatin Calcium (Lipitor) 20 mg PO HS [facility] Last Admin: 06/29/17 21:52 Dose: 20 mg Cholecalciferol (Vitamin D) 1,000 iu PO DAILY [facility] Last Admin: 06/30/17 08:51 Dose: 1,000 iu Cinacalcet (Sensipar) 30 mg PO DAILY [facility] Last Admin: 06/30/17 08:52 Dose: 30 mg Heparin Sodium (Porcine) (Heparin) 5,000 units SC Q8 [facility] PRN Reason: Protocol Last Admin: 06/30/17 00:30 Dose: 5,000 units Home Med (Tacrolimus [Prograf]) 5 mg PO BID [facility] Metronidazole (Flagyl 500mg/100ml Ns) 100 mls @ 100 mls/hr IVPB Q8 [facility] PRN Reason: Protocol Last Admin: 06/30/17 08:46 Dose: 100 mls/hr Aztreonam 1 gm/ Sodium (Chloride) 100 mls @ 100 mls/hr IVPB Q12 [facility] PRN Reason: Protocol Last Admin: 06/30/17 09:00 Dose: 100 mls/hr Ciprofloxacin (Cipro 200mg/100ml D5w) 100 mls @ 100 mls/hr IVPB Q12 [facility] Last Admin: 06/30/17 09:00 Dose: 100 mls/hr Dextrose/Sodium Chloride (Dextrose 5%-0.45% Ns 500 Ml) 500 mls @ 100 mls/hr IV .Q5H [facility] Stop: 07/01/17 07:58 Last Admin: 06/30/17 08:15 Dose: 100 mls/hr Morphine Sulfate (Morphine) 2 mg IVP Q6 PRN PRN Reason: Pain, severe (8-10) Last Admin: 06/27/17 22:10 Dose: 2 mg Mycophenolate Mofetil (Cellcept Cap) 250 mg PO BID [facility] Last Admin: 06/30/17 08:49 Dose: 250 mg Ondansetron HCl (Zofran Inj) 4 mg IVP Q4 PRN PRN Reason: Nausea/Vomiting Pantoprazole Sodium (Protonix Ec Tab) 40 mg PO DAILY [facility] Last Admin: 06/30/17 08:52 Dose: 40 mg Prednisone (Prednisone Tab) 5 mg PO DAILY [facility] Last Admin: 06/30/17 08:50 Dose: 5 mg Sodium Phosphate (Fleet Enema) 135 ml [place] ONCE ONE Stop: 07/01/17 08:01 Tacrolimus (Prograf Cap) 5 mg PO BID [facility] Last Admin: 06/30/17 08:52 Dose: 5 mg - Labs Labs: 06/30/17 06:30 06/30/17 06:30 PT 18.1 Seconds (9.8-13.1) H 06/28/17 06:15 INR 1.6 (0.9-1.2) H 06/28/17 06:15 APTT 30.4 Seconds (25.6-37.1) 06/28/17 06:15 - Constitutional Appears: Non-toxic, No Acute Distress - Head Exam Head Exam: ATRAUMATIC, NORMAL INSPECTION - Eye Exam Eye Exam: EOMI, Normal appearance - Respiratory Exam Respiratory Exam: NORMAL BREATHING PATTERN. absent: Respiratory Distress - Cardiovascular Exam Cardiovascular Exam: +S1, +S2 - GI/Abdominal Exam GI & Abdominal Exam: Soft, Tenderness (tender in LLQ). absent: Distended, Firm , Guarding, Rigid, Rebound - Neurological Exam Neurological Exam: Alert, Awake - Psychiatric Exam Psychiatric exam: Normal Affect, Normal Mood - Skin Skin Exam: Dry, Warm Assessment and Plan - Assessment and Plan (Free Text) Assessment: 62yo F with CKD s/p kidney transplant, HTN, DM, recurrent diverticulitis and UTI presents with abdominal pain, vomiting and loose stools and found to have large diverticulum vs abscess adjacent to sigmoid - Afebrile, VSS - Leukocytosis resolved - CT: 6cm thick walled collection of fluid & gas adjacent to sigmoid colon, increased in size since 04/06/17. DDx: giant sigmoid diverticulum vs communicating abscess. - On IV antibiotics per ID currently on Cipro and Flagyl, Aztreonam - Will do fleet enema prep and then single contrast barium enema on Saturday - Discussed plan with Dr. Yvon Torres PGY-3
[2017-06-30] MEDS: Potassium CL 10 MEQ/50 ML 50 ML IVPB SCH ×2 (12:00→14:00)
[2017-06-30] MEDS: Dextrose 5%/0.45% NS 1,000 ML IV SCH (16:30)
[2017-06-30] MEDS: Potassium Chloride 20 mEq ER Tab PO ONE ×2 (17:43→17:50)
[2017-06-30] MEDS ORDERED: Potassium Chloride 20 mEq/15 ml LIQ UD PO ONE (18:06)
[2017-07-01] MEDS: metroNIDAZOLE 500mg/100ml NS 100 ML IVPB SCH ×3 (00:15→16:41)
[2017-07-01] MEDS: Dextrose 5%/0.45% NS 1,000 ML IV SCH (03:15)
[2017-07-01 06:23] LABS: BLOOD UREA NITROGEN 9 mg/dl (7-17); CALCIUM 10.7 mg/dL (8.4-10.2); CARBON DIOXIDE 21 mmol/L (22-30); CHLORIDE 111 mmol/L (98-107); GFR AFRICAN-AMERICAN > 60; GLUCOSE,RANDOM 86 mg/dL (65-105); POTASSIUM 4.2 MMOL/L (3.6-5.0); SODIUM 136 mmol/l (132-148)
[2017-07-01 06:31] LABS: HEMATOCRIT 27.9 % (34.0-47.0); MEAN CELL VOLUME 88.3 fl (81.0-99.0); MEAN CORPUSCULAR HEMOGLOBIN 27.8 pg (27.0-31.0); MEAN CORPUSCULAR HGB CONC 31.5 g/dL (33.0-37.0); RED CELL DISTRIBUTION WIDTH 15.4 % (11.5-14.5); WHITE BLOOD COUNT 4.5 K/uL (4.8-10.8)
[2017-07-01] MEDS: Pantoprazole 40 mg EC Tab PO SCH (08:35)
[2017-07-01] MEDS: Cholecalciferol 1,000 INTLU TAB PO SCH (08:35)
[2017-07-01] MEDS: Aztreonam 1 GM in Sodium Chloride 0.9% 100 ML IVPB SCH ×2 (08:43→22:08)
[2017-07-01] MEDS: Ciprofloxacin 200mg/100ml D5W 100 ML IVPB SCH ×3 (09:06→21:01)
--- NOTE | 2017-07-01 09:47 | CP.PCM.PN ---
Subjective - Date & Time of Evaluation Date of Evaluation: 07/01/17 Time of Evaluation: 09:43 - Subjective Subjective: 62 y/o female seen resting in bed at time of visit this morning. Pt denies any new episodes of nausea or vomiting. Pt denies fever or chills throughout her stay. Pt says her left sided abdominal pain is getting better. Pt denies diarrhea or constipation at this time and says she passed a normal bowel movement yesterday. Objective - Vital Signs/Intake and Output Vital Signs (last 24 hours): Temp Pulse Resp BP Pulse Ox 97.3 F L 67 16 137/67 99 07/01/17 09:36 07/01/17 09:36 07/01/17 09:36 07/01/17 09:36 07/01/17 09:36 - Medications Medications: Current Medications Acetaminophen (Tylenol 325mg Tab) 650 mg PO Q6 PRN PRN Reason: Pain, moderate (4-7) Acetaminophen (Tylenol 325mg Tab) 650 mg PO Q4 PRN PRN Reason: Fever >100.4 F Last Admin: 06/27/17 16:35 Dose: 650 mg Amlodipine Besylate (Norvasc) 5 mg PO DAILY [facility] Last Admin: 07/01/17 08:34 Dose: 5 mg Atorvastatin Calcium (Lipitor) 20 mg PO HS [facility] Last Admin: 06/30/17 21:06 Dose: 20 mg Cholecalciferol (Vitamin D) 1,000 iu PO DAILY [facility] Last Admin: 07/01/17 08:35 Dose: 1,000 iu Cinacalcet (Sensipar) 30 mg PO DAILY [facility] Last Admin: 07/01/17 08:35 Dose: 30 mg Heparin Sodium (Porcine) (Heparin) 5,000 units SC Q8 [facility]EN PRN Reason: Protocol Last Admin: 07/01/17 09:04 Dose: Not Given Home Med (Tacrolimus [Prograf]) 5 mg PO BID [facility] Metronidazole (Flagyl 500mg/100ml Ns) 100 mls @ 100 mls/hr IVPB Q8 [facility]EN PRN Reason: Protocol Last Admin: 07/01/17 09:06 Dose: 100 mls/hr Aztreonam 1 gm/ Sodium (Chloride) 100 mls @ 100 mls/hr IVPB Q12 [facility]EN PRN Reason: Protocol Last Admin: 07/01/17 08:43 Dose: 100 mls/hr Ciprofloxacin (Cipro 200mg/100ml D5w) 100 mls @ 100 mls/hr IVPB Q12 [facility] Last Admin: 07/01/17 09:06 Dose: 100 mls/hr Dextrose/Sodium Chloride (Dextrose 5%/0.45% Ns 1000 Ml) 1,000 mls @ 100 mls/hr IV .Q10H [facility] Stop: 07/01/17 16:10 Last Admin: 07/01/17 03:15 Dose: Not Given Mycophenolate Mofetil (Cellcept Cap) 250 mg PO BID [facility] Last Admin: 07/01/17 08:29 Dose: 250 mg Ondansetron HCl (Zofran Inj) 4 mg IVP Q4 PRN PRN Reason: Nausea/Vomiting Pantoprazole Sodium (Protonix Ec Tab) 40 mg PO DAILY [facility] Last Admin: 07/01/17 08:35 Dose: 40 mg Prednisone (Prednisone Tab) 5 mg PO DAILY [facility] Last Admin: 07/01/17 08:33 Dose: 5 mg Tacrolimus (Prograf Cap) 5 mg PO BID [facility] Last Admin: 07/01/17 08:31 Dose: 5 mg - Labs Labs: 07/01/17 05:45 07/01/17 05:45 PT 18.1 Seconds (9.8-13.1) H 06/28/17 06:15 INR 1.6 (0.9-1.2) H 06/28/17 06:15 APTT 30.4 Seconds (25.6-37.1) 06/28/17 06:15 - Constitutional Appears: Well, Non-toxic, No Acute Distress - Head Exam Head Exam: ATRAUMATIC, NORMOCEPHALIC - Eye Exam Eye Exam: Normal appearance Pupil Exam: NORMAL ACCOMODATION, PERRL - ENT Exam ENT Exam: Normal Exam - Neck Exam Neck Exam: Full ROM, Normal Inspection. absent: Tenderness - Respiratory Exam Respiratory Exam: Clear to Ausculation Bilateral. absent: Rhonchi, Wheezes - Cardiovascular Exam Cardiovascular Exam: REGULAR RHYTHM, +S1, +S2. absent: JVD - GI/Abdominal Exam GI & Abdominal Exam: Soft, Tenderness Additional comments: LLQ tenderness with palpable mass - Rectal Exam Rectal Exam: Deferred - Extremities Exam Extremities Exam: Normal Capillary Refill, Normal Inspection. absent: Calf Tenderness, Pedal Edema - Neurological Exam Neurological Exam: Alert, Awake, Oriented x3 - Skin Skin Exam: Intact Additional comments: stage 1 sacral decubitus ulcer, present on admission, non blanching erythema Assessment and Plan - Assessment and Plan (Free Text) Plan: 1) Diverticulitis, recurrent -CT abdomen shows 6 cm thick walled collection of fluid and gas adjacent to sigmoid colon. DDX includes giant sigmoid diverticulitis vs. communicating abscess. No evidence of urinary calculus or urinary tract obstruction. Cholelithiasis without evidence of cholecystitis. Mild anterior wedge compression of L1 vertebra, new since 03/2017 -surgery consult Dr. Sanz on board, appreciate recommendations -Fleet enema and barium enema today -ID consult, Dr. Rodriguez on board -continue IV Cipro, IV Flagyl, IV Aztreonam -continue NPO diet -Zofran prn for N/V -procalcitonin 0.77 -Tylenol, Morphine prn for pain control -continue Dextrose 5/0.45% NS 2) Sepsis, resolved -on admission: WBC 13.2; Tmax 100.5, lactic acid 1.2, started on cipro/flagyl -per ID, Aztreonam added to antibiotic therapy regimen -now afebrile, Lactate normal, no leukocytosis 3) Hypercalcemia -IV hydration -Cinacalcet 4) Hx of renal transplant -continue Mycophenolate and Prednisone -Dr. Glez on consult 5) Anemia -Hgb 8.7 -continue to monitor 6) Hypertension -Stable -continue Norvasc -monitor BP 7) Hyperlipidemia -continue Atorvastatin 8) Sacral decubitus ulcer, stage 1 -move pt q2h -wound care to evaluate -encouraged patient to move in the bed to prevent worsening of pressure ulcer 9) Recurrent UTIs -no urinary symptoms at present -urinalysis pending 10) DVT prophylaxis -SCDs -Heparin 5000 units SC q8 11) Code status -full code
[2017-07-01] MEDS ORDERED: Diatrizoate Meglumine 120 ML SOLN PO ONE (10:15)
--- NOTE | 2017-07-01 10:26 | CP.PCM.PN ---
<Neftali Coates - Last Filed: 07/01/17 12:55> Subjective - Date & Time of Evaluation Date of Evaluation: 07/01/17 Time of Evaluation: 10:22 - Subjective Subjective: General Surgery Progress Note for Dr. Sanz This patient was seen and examined this AM at bedside no acute events recorded overnight. Patient currently denying any abdominal pain, SOB nause or vomiting. Reports small BM and regular flatus. Planned for low pressure barium enema today. Objective - Vital Signs/Intake and Output Vital Signs (last 24 hours): Temp Pulse Resp BP Pulse Ox 97.3 F L 67 16 137/67 99 07/01/17 09:36 07/01/17 09:36 07/01/17 09:36 07/01/17 09:36 07/01/17 09:36 - Medications Medications: Current Medications Acetaminophen (Tylenol 325mg Tab) 650 mg PO Q6 PRN PRN Reason: Pain, moderate (4-7) Acetaminophen (Tylenol 325mg Tab) 650 mg PO Q4 PRN PRN Reason: Fever >100.4 F Last Admin: 06/27/17 16:35 Dose: 650 mg Amlodipine Besylate (Norvasc) 5 mg PO DAILY [facility] Last Admin: 07/01/17 08:34 Dose: 5 mg Atorvastatin Calcium (Lipitor) 20 mg PO HS [facility] Last Admin: 06/30/17 21:06 Dose: 20 mg Cholecalciferol (Vitamin D) 1,000 iu PO DAILY [facility] Last Admin: 07/01/17 08:35 Dose: 1,000 iu Cinacalcet (Sensipar) 30 mg PO DAILY [facility] Last Admin: 07/01/17 08:35 Dose: 30 mg Heparin Sodium (Porcine) (Heparin) 5,000 units SC Q8 [facility] PRN Reason: Protocol Last Admin: 07/01/17 09:04 Dose: Not Given Home Med (Tacrolimus [Prograf]) 5 mg PO BID [facility] Metronidazole (Flagyl 500mg/100ml Ns) 100 mls @ 100 mls/hr IVPB Q8 [facility] PRN Reason: Protocol Last Admin: 07/01/17 09:06 Dose: 100 mls/hr Aztreonam 1 gm/ Sodium (Chloride) 100 mls @ 100 mls/hr IVPB Q12 [facility] PRN Reason: Protocol Last Admin: 07/01/17 08:43 Dose: 100 mls/hr Ciprofloxacin (Cipro 200mg/100ml D5w) 100 mls @ 100 mls/hr IVPB Q12 [facility] Last Admin: 07/01/17 09:06 Dose: 100 mls/hr Dextrose/Sodium Chloride (Dextrose 5%/0.45% Ns 1000 Ml) 1,000 mls @ 100 mls/hr IV .Q10H [facility] Stop: 07/01/17 16:10 Last Admin: 07/01/17 03:15 Dose: Not Given Mycophenolate Mofetil (Cellcept Cap) 250 mg PO BID [facility] Last Admin: 07/01/17 08:29 Dose: 250 mg Ondansetron HCl (Zofran Inj) 4 mg IVP Q4 PRN PRN Reason: Nausea/Vomiting Pantoprazole Sodium (Protonix Ec Tab) 40 mg PO DAILY [facility] Last Admin: 07/01/17 08:35 Dose: 40 mg Prednisone (Prednisone Tab) 5 mg PO DAILY [facility] Last Admin: 07/01/17 08:33 Dose: 5 mg Tacrolimus (Prograf Cap) 5 mg PO BID [facility] Last Admin: 07/01/17 08:31 Dose: 5 mg - Labs Labs: 07/01/17 05:45 07/01/17 05:45 PT 18.1 Seconds (9.8-13.1) H 06/28/17 06:15 INR 1.6 (0.9-1.2) H 06/28/17 06:15 APTT 30.4 Seconds (25.6-37.1) 06/28/17 06:15 - Constitutional Appears: Non-toxic, No Acute Distress - Head Exam Head Exam: ATRAUMATIC, NORMOCEPHALIC - Eye Exam Eye Exam: EOMI - ENT Exam ENT Exam: Mucous Membranes Moist - Respiratory Exam Respiratory Exam: NORMAL BREATHING PATTERN - Cardiovascular Exam Cardiovascular Exam: REGULAR RHYTHM - GI/Abdominal Exam GI & Abdominal Exam: Soft. absent: Guarding, Rigid, Tenderness - Neurological Exam Neurological Exam: Alert, Awake - Psychiatric Exam Psychiatric exam: Normal Affect, Normal Mood - Skin Skin Exam: Dry, Intact Assessment and Plan - Assessment and Plan (Free Text) Assessment: 62yo F with CKD s/p kidney transplant, HTN, DM, recurrent diverticulitis and UTI presented with abdominal pain, vomiting and loose stools which have since resolved she was found to have large diverticulum vs abscess adjacent to sigmoid - Afebrile, VSS - Leukocytosis resolved - CT: 6cm thick walled collection of fluid & gas adjacent to sigmoid colon, increased in size since 04/06/17. DDx: giant sigmoid diverticulum vs communicating abscess. - On IV antibiotics per ID currently on Cipro and Flagyl, Aztreonam - Will do fleet enema prep and then low pressure barium enema - Discussed plan with Dr. Yvon Coates PGY2 <Liliam Sanz - Last Filed: 07/01/17 14:12> Objective - Vital Signs/Intake and Output Vital Signs (last 24 hours): Temp Pulse Resp BP Pulse Ox 97.3 F L 67 16 137/67 99 07/01/17 09:36 07/01/17 09:36 07/01/17 09:36 07/01/17 09:36 07/01/17 09:36 - Medications Medications: Current Medications Acetaminophen (Tylenol 325mg Tab) 650 mg PO Q6 PRN PRN Reason: Pain, moderate (4-7) Acetaminophen (Tylenol 325mg Tab) 650 mg PO Q4 PRN PRN Reason: Fever >100.4 F Last Admin: 06/27/17 16:35 Dose: 650 mg Amlodipine Besylate (Norvasc) 5 mg PO DAILY [facility] Last Admin: 07/01/17 08:34 Dose: 5 mg Atorvastatin Calcium (Lipitor) 20 mg PO HS [facility] Last Admin: 06/30/17 21:06 Dose: 20 mg Cholecalciferol (Vitamin D) 1,000 iu PO DAILY [facility] Last Admin: 07/01/17 08:35 Dose: 1,000 iu Cinacalcet (Sensipar) 30 mg PO DAILY [facility] Last Admin: 07/01/17 08:35 Dose: 30 mg Heparin Sodium (Porcine) (Heparin) 5,000 units SC Q12 [facility]EN PRN Reason: Protocol Home Med (Tacrolimus [Prograf]) 5 mg PO BID [facility] Metronidazole (Flagyl 500mg/100ml Ns) 100 mls @ 100 mls/hr IVPB Q8 [facility] PRN Reason: Protocol Last Admin: 07/01/17 09:06 Dose: 100 mls/hr Aztreonam 1 gm/ Sodium (Chloride) 100 mls @ 100 mls/hr IVPB Q12 [facility] PRN Reason: Protocol Last Admin: 07/01/17 08:43 Dose: 100 mls/hr Ciprofloxacin (Cipro 200mg/100ml D5w) 100 mls @ 100 mls/hr IVPB Q12 [facility] Last Admin: 07/01/17 09:06 Dose: 100 mls/hr Dextrose/Sodium Chloride (Dextrose 5%/0.45% Ns 1000 Ml) 1,000 mls @ 100 mls/hr IV .Q10H [facility] Stop: 07/01/17 16:10 Last Admin: 07/01/17 03:15 Dose: Not Given Mycophenolate Mofetil (Cellcept Cap) 250 mg PO BID [facility] Last Admin: 07/01/17 08:29 Dose: 250 mg Ondansetron HCl (Zofran Inj) 4 mg IVP Q4 PRN PRN Reason: Nausea/Vomiting Pantoprazole Sodium (Protonix Ec Tab) 40 mg PO DAILY [facility] Last Admin: 07/01/17 08:35 Dose: 40 mg Prednisone (Prednisone Tab) 5 mg PO DAILY [facility] Last Admin: 07/01/17 08:33 Dose: 5 mg Tacrolimus (Prograf Cap) 5 mg PO BID [facility] Last Admin: 07/01/17 08:31 Dose: 5 mg - Labs Labs: 07/01/17 05:45 07/01/17 05:45 PT 18.1 Seconds (9.8-13.1) H 06/28/17 06:15 INR 1.6 (0.9-1.2) H 06/28/17 06:15 APTT 30.4 Seconds (25.6-37.1) 06/28/17 06:15 Attending/Attestation - Attestation I have fully participated in the care of the patient.: Yes I have reviewed all pertinent clinical information, including history, physical exam and plan: Yes Notes (Text): 07/01/17 14:08 Barium enema reviewed, 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 Patient states she has been symptomatic for 6-9 months with loss of 40% of usual body weight due to pain and loss of appetite. She would benefit from short segment sigmoid resection to remove diverticulum, and is agreeable to surgery. No other significant abnormalities were noted on BE.
[2017-07-01] MEDS ORDERED: DiphenhydrAMINE 50 mg/ml Inj IVP STA (10:50)
[2017-07-01 11:09] LABS: RBC URINE 7 /hpf (0-3); URINE BACTERIA RARE (<OCC); URINE BILIRUBIN NEGATIVE (NEGATIVE); URINE BLOOD SMALL (NEGATIVE); URINE COLOR YELLOW (YELLOW); URINE GLUCOSE (UA) NEG (Normal); URINE KETONE NEGATIVE (NEGATIVE); URINE LEUKOCYTE ESTERASE LARGE Leu/uL (Negative); URINE PROTEIN NEGATIVE (NEGATIVE); URINE UROBILINOGEN 0.2-1.0 mg/dL (0.2-1.0); WBC URINE 14 /hpf (0-5)
[2017-07-01] MEDS ORDERED: Chlorhexidine Gluconate 1 APPL/PKT TP ONE (11:34)
--- NOTE | 2017-07-01 13:39 | RAD ---
PROCEDURE: BARIUM ENEMA HISTORY: sigmoid diverticulum vs abscess COMPARISON: Abdomen and Pelvis CT examinations dated 06/27/2017 and 04/06/2017, both without iv contrast. TECHNIQUE: Single density contrast moderately dilute Gastrografin enema was performed with special attention provided into the sigmoid colon where there is a large diverticulum or abscess related to the mid to distal sigmoid colon identified by CT examinations noted above. FINDINGS: The examination confirms the relationship of a moderately large structure measuring 7.1 x 7.6 x 7.8 cm (transverse by anteroposterior by superoinferior dimensions), intimately associated with the mid to distal sigmoid colon with occasional irregular peripheral margins associated. The majority of this lesion is well-circumscribed and it is seen to opacify with the sigmoid colon. The connection to the sigmoid colon is difficult to isolate and is best seen in the prior oral contrasted abdomen and pelvis CT examination dated 04/06/2017. There was no extravasation of oral contrast throughout this examination. This likely represents a large diverticulum related to the sigmoid colon with the regular margins likely reflecting infection, inflammation or potential neoplasm. Additionally worrisome, is what may be a stricture of the small bowel at the same level as this finding with limited dilatation of sigmoid colon immediately proximal to it. This segment of colon never distends with oral contrast material though the proximal and distal segments relative to it, easily distend. Retained fecal material obscures evaluation of the large bowel. Mild left colonic diverticulosis is otherwise appreciated involving the more proximal left hemicolon with no definite additional constricting or obstructing lesion appreciable. IMPRESSION: The pattern favors a large particularly over an abscess cavity given lack of interval worsening of this finding over an approximate three-month timeframe. Occasional irregular peripheral likely corresponds to inflammatory changes from infectious or other inflammatory process. Neoplasm is not favored but not excluded. It appears to communicate with the mid to distal sigmoid colon once again with a connection best identified on prior CT noted above 04/06/2017. Further, a moderate mid sigmoid stricture appears to occur at nearly the same level, of indeterminate etiology. Limited more proximal left colonic nonacute diverticular changes.
--- NOTE | 2017-07-01 18:43 | CP.PCM.PN ---
Subjective - Date & Time of Evaluation Date of Evaluation: 07/01/17 Time of Evaluation: 15:00 - Subjective Subjective: SEEN ON RENAL F/U FEELS MUCH BETTER CLINICALLY I AM GLAD THAT SURGERY IS REMOVING THIS SICK SECTION OF THE SIGMIOD PT HAS HAD 3-4 EPISODES OF DIVERTICULITIS SHE LOST AROUND 30 LBS THIS YEAR RENAL FUNCTION REMIANS STABLE CA IS IMPROVING Objective - Vital Signs/Intake and Output Vital Signs (last 24 hours): Temp Pulse Resp BP Pulse Ox 98.1 F 106 H 17 130/79 98 07/01/17 15:57 07/01/17 15:57 07/01/17 15:57 07/01/17 15:57 07/01/17 15:57 - Medications Medications: Current Medications Acetaminophen (Tylenol 325mg Tab) 650 mg PO Q6 PRN PRN Reason: Pain, moderate (4-7) Acetaminophen (Tylenol 325mg Tab) 650 mg PO Q4 PRN PRN Reason: Fever >100.4 F Last Admin: 06/27/17 16:35 Dose: 650 mg Amlodipine Besylate (Norvasc) 5 mg PO DAILY [facility] Last Admin: 07/01/17 08:34 Dose: 5 mg Atorvastatin Calcium (Lipitor) 20 mg PO HS [facility] Last Admin: 06/30/17 21:06 Dose: 20 mg Cholecalciferol (Vitamin D) 1,000 iu PO DAILY [facility] Last Admin: 07/01/17 08:35 Dose: 1,000 iu Cinacalcet (Sensipar) 30 mg PO DAILY [facility] Last Admin: 07/01/17 08:35 Dose: 30 mg Heparin Sodium (Porcine) (Heparin) 5,000 units SC Q12 [facility] PRN Reason: Protocol Home Med (Tacrolimus [Prograf]) 5 mg PO BID [facility] Metronidazole (Flagyl 500mg/100ml Ns) 100 mls @ 100 mls/hr IVPB Q8 [facility] PRN Reason: Protocol Last Admin: 07/01/17 16:41 Dose: 100 mls/hr Aztreonam 1 gm/ Sodium (Chloride) 100 mls @ 100 mls/hr IVPB Q12 [facility] PRN Reason: Protocol Last Admin: 07/01/17 08:43 Dose: 100 mls/hr Ciprofloxacin (Cipro 200mg/100ml D5w) 100 mls @ 100 mls/hr IVPB Q12 [facility] Last Admin: 07/01/17 15:34 Dose: Not Given Mycophenolate Mofetil (Cellcept Cap) 250 mg PO BID [facility] Last Admin: 07/01/17 16:46 Dose: 250 mg Ondansetron HCl (Zofran Inj) 4 mg IVP Q4 PRN PRN Reason: Nausea/Vomiting Pantoprazole Sodium (Protonix Ec Tab) 40 mg PO DAILY [facility] Last Admin: 07/01/17 08:35 Dose: 40 mg Prednisone (Prednisone Tab) 5 mg PO DAILY [facility] Last Admin: 07/01/17 08:33 Dose: 5 mg Tacrolimus (Prograf Cap) 5 mg PO BID [facility] Last Admin: 07/01/17 16:47 Dose: 5 mg - Labs Labs: 07/01/17 05:45 07/01/17 05:45 PT 18.1 Seconds (9.8-13.1) H 06/28/17 06:15 INR 1.6 (0.9-1.2) H 06/28/17 06:15 APTT 30.4 Seconds (25.6-37.1) 06/28/17 06:15 Assessment and Plan - Assessment and Plan (Free Text) Assessment: S/P RENAL TRX .. RENAL FUNCTION GOOD ANEMIA .. NEEDS W/U HYPERCALCEMIA .. BETER .. ON SENEIPAR RECURRENT DIVERTICULITIS .. FOR SURGERY .. ON 3 IVAB P : C/O CURRENT CARE C/O PRESENT MANAGEMENT
[2017-07-02] MEDS: metroNIDAZOLE 500mg/100ml NS 100 ML IVPB SCH ×3 (00:31→18:38)
[2017-07-02 06:23] LABS: BASO % 0.3 % (0.0-2.0); EOS % 0.3 % (0.0-4.0); HEMATOCRIT 31.7 % (34.0-47.0); LYMPH # 1.8 K/uL (1.0-4.3); LYMPH % 24.5 % (20.0-40.0); MEAN CELL VOLUME 88.9 fl (81.0-99.0); MEAN CORPUSCULAR HGB CONC 31.5 g/dL (33.0-37.0); MEAN PLATELET VOLUME 6.8 fl (7.2-11.7); MONO # 0.4 K/uL (0.0-0.8); MONO % 5.7 % (0.0-10.0); NEUT # 5.2 K/uL (1.8-7.0); NEUT % 69.2 % (50.0-75.0); NRBC % 0.1 % (0.0-0.0); RED CELL DISTRIBUTION WIDTH 15.7 % (11.5-14.5); WHITE BLOOD COUNT 7.5 K/uL (4.8-10.8)
[2017-07-02 06:33] LABS: ALB/GLOB RATIO 0.8 (1.0-2.1); ALKALINE PHOSPHATASE 127 U/L (38-126); ALT/SGPT 30 U/L (9-52); AST/SGOT 10 U/L (14-36); BILIRUBIN,TOTAL 0.3 mg/dl (0.2-1.3); BLOOD UREA NITROGEN 11 mg/dl (7-17); CARBON DIOXIDE 20 mmol/L (22-30); CHLORIDE 111 mmol/L (98-107); GFR AFRICAN-AMERICAN > 60; GLUCOSE,RANDOM 74 mg/dL (65-105); POTASSIUM 4.2 MMOL/L (3.6-5.0); SODIUM 138 mmol/l (132-148); TOTAL PROTEIN 5.4 G/DL (6.3-8.2)
[2017-07-02] MEDS: Ciprofloxacin 200mg/100ml D5W 100 ML IVPB SCH ×2 (08:41→20:03)
--- NOTE | 2017-07-02 08:44 | CP.PCM.PN ---
Subjective - Date & Time of Evaluation Date of Evaluation: 07/02/17 Time of Evaluation: 08:42 - Subjective Subjective: General Surgery Progress Note for Dr. Sanz This patient was seen and examined this AM at bedside. No acute events reported overnight. Patient continues to have loose bowel movements denies any fevers chills chest pain nausea vomiting. Objective - Vital Signs/Intake and Output Vital Signs (last 24 hours): Temp Pulse Resp BP Pulse Ox 97.3 F L 81 18 141/76 99 07/02/17 08:22 07/02/17 08:22 07/02/17 08:22 07/02/17 08:22 07/02/17 08:22 Intake and Output: 07/02/17 07/02/17 06:59 18:59 Intake Total 200 Balance 200 - Medications Medications: Current Medications Acetaminophen (Tylenol 325mg Tab) 650 mg PO Q6 PRN PRN Reason: Pain, moderate (4-7) Acetaminophen (Tylenol 325mg Tab) 650 mg PO Q4 PRN PRN Reason: Fever >100.4 F Last Admin: 06/27/17 16:35 Dose: 650 mg Amlodipine Besylate (Norvasc) 5 mg PO DAILY [facility] Last Admin: 07/01/17 08:34 Dose: 5 mg Atorvastatin Calcium (Lipitor) 20 mg PO HS [facility] Last Admin: 07/01/17 21:02 Dose: 20 mg Cholecalciferol (Vitamin D) 1,000 iu PO DAILY [facility] Last Admin: 07/01/17 08:35 Dose: 1,000 iu Cinacalcet (Sensipar) 30 mg PO DAILY [facility] Last Admin: 07/01/17 08:35 Dose: 30 mg Heparin Sodium (Porcine) (Heparin) 5,000 units SC Q12 [facility] PRN Reason: Protocol Last Admin: 07/01/17 21:02 Dose: 5,000 units Home Med (Tacrolimus [Prograf]) 5 mg PO BID [facility] Metronidazole (Flagyl 500mg/100ml Ns) 100 mls @ 100 mls/hr IVPB Q8 [facility] PRN Reason: Protocol Last Admin: 07/02/17 00:31 Dose: 100 mls/hr Aztreonam 1 gm/ Sodium (Chloride) 100 mls @ 100 mls/hr IVPB Q12 [facility] PRN Reason: Protocol Last Admin: 07/01/17 22:08 Dose: 100 mls/hr Ciprofloxacin (Cipro 200mg/100ml D5w) 100 mls @ 100 mls/hr IVPB Q12 [facility] Last Admin: 07/01/17 21:01 Dose: 100 mls/hr Mycophenolate Mofetil (Cellcept Cap) 250 mg PO BID [facility] Last Admin: 07/01/17 16:46 Dose: 250 mg Ondansetron HCl (Zofran Inj) 4 mg IVP Q4 PRN PRN Reason: Nausea/Vomiting Pantoprazole Sodium (Protonix Ec Tab) 40 mg PO DAILY [facility] Last Admin: 07/01/17 08:35 Dose: 40 mg Prednisone (Prednisone Tab) 5 mg PO DAILY [facility] Last Admin: 07/01/17 08:33 Dose: 5 mg Tacrolimus (Prograf Cap) 5 mg PO BID [facility] Last Admin: 07/01/17 16:47 Dose: 5 mg - Labs Labs: 07/02/17 05:45 07/02/17 05:45 PT 18.1 Seconds (9.8-13.1) H 06/28/17 06:15 INR 1.6 (0.9-1.2) H 06/28/17 06:15 APTT 30.4 Seconds (25.6-37.1) 06/28/17 06:15 - Constitutional Appears: Non-toxic, No Acute Distress - Head Exam Head Exam: ATRAUMATIC - Eye Exam Eye Exam: EOMI - ENT Exam ENT Exam: Mucous Membranes Moist - Respiratory Exam Respiratory Exam: NORMAL BREATHING PATTERN - Cardiovascular Exam Cardiovascular Exam: REGULAR RHYTHM, +S1, +S2 - GI/Abdominal Exam GI & Abdominal Exam: Soft. absent: Distended, Firm, Guarding, Rigid, Tenderness - Neurological Exam Neurological Exam: Alert, Awake - Psychiatric Exam Psychiatric exam: Normal Affect, Normal Mood - Skin Skin Exam: Dry, Intact Assessment and Plan - Assessment and Plan (Free Text) Assessment: 62yo F with CKD s/p kidney transplant, HTN, DM, recurrent diverticulitis and UTI presented with abdominal pain, vomiting and loose stools and significant weight loss, with CT: 6cm thick walled collection of fluid & gas adjacent to sigmoid colon, increased in size since 04/06/17. 07/01 Barium enema consistent with large colonic diverticulum. - Afebrile, VSS, Labs WNL - On IV antibiotics per ID currently on Cipro and Flagyl, Aztreonam - Regular Diet - Patient is agreeable to segmental colon resection - Operative planning - Discussed plan with Dr. Yvon Coates PGY2
[2017-07-02] MEDS: Pantoprazole 40 mg EC Tab PO SCH (08:50)
--- NOTE | 2017-07-02 09:11 | CP.PCM.PN ---
Subjective - Date & Time of Evaluation Date of Evaluation: 07/02/17 Time of Evaluation: 08:55 - Subjective Subjective: 62 y/o female seen at bedside today, resting upright in bed in [facility]. Pt says her left sided abdominal pain is much improved today and she feels stronger overall. Pt is agreeable to proceeding with surgery at this time. Pt denies any recent bouts of nausea or vomiting. Pt denies fever, chills, diarrhea or constipation, but admits to bowel movements that are loose in nature. Pt denies CP/SOB. Objective - Vital Signs/Intake and Output Vital Signs (last 24 hours): Temp Pulse Resp BP Pulse Ox 97.3 F L 81 18 141/76 99 07/02/17 08:22 07/02/17 08:51 07/02/17 08:22 07/02/17 08:51 07/02/17 08:22 Intake and Output: 07/02/17 07/02/17 06:59 18:59 Intake Total 200 Balance 200 - Medications Medications: Current Medications Acetaminophen (Tylenol 325mg Tab) 650 mg PO Q6 PRN PRN Reason: Pain, moderate (4-7) Acetaminophen (Tylenol 325mg Tab) 650 mg PO Q4 PRN PRN Reason: Fever >100.4 F Last Admin: 06/27/17 16:35 Dose: 650 mg Amlodipine Besylate (Norvasc) 5 mg PO DAILY [facility] Last Admin: 07/02/17 08:51 Dose: 5 mg Atorvastatin Calcium (Lipitor) 20 mg PO HS [facility] Last Admin: 07/01/17 21:02 Dose: 20 mg Cholecalciferol (Vitamin D) 1,000 iu PO DAILY [facility] Last Admin: 07/01/17 08:35 Dose: 1,000 iu Cinacalcet (Sensipar) 30 mg PO DAILY [facility] Last Admin: 07/02/17 08:52 Dose: 30 mg Heparin Sodium (Porcine) (Heparin) 5,000 units SC Q12 [facility] PRN Reason: Protocol Last Admin: 07/01/17 21:02 Dose: 5,000 units Home Med (Tacrolimus [Prograf]) 5 mg PO BID [facility] Metronidazole (Flagyl 500mg/100ml Ns) 100 mls @ 100 mls/hr IVPB Q8 [facility] PRN Reason: Protocol Last Admin: 07/02/17 08:43 Dose: 100 mls/hr Aztreonam 1 gm/ Sodium (Chloride) 100 mls @ 100 mls/hr IVPB Q12 [facility] PRN Reason: Protocol Last Admin: 07/01/17 22:08 Dose: 100 mls/hr Ciprofloxacin (Cipro 200mg/100ml D5w) 100 mls @ 100 mls/hr IVPB Q12 [facility] Last Admin: 07/02/17 08:41 Dose: 100 mls/hr Mycophenolate Mofetil (Cellcept Cap) 250 mg PO BID [facility] Last Admin: 07/02/17 08:50 Dose: 250 mg Ondansetron HCl (Zofran Inj) 4 mg IVP Q4 PRN PRN Reason: Nausea/Vomiting Pantoprazole Sodium (Protonix Ec Tab) 40 mg PO DAILY [facility] Last Admin: 07/02/17 08:50 Dose: 40 mg Prednisone (Prednisone Tab) 5 mg PO DAILY [facility] Last Admin: 07/02/17 08:51 Dose: 5 mg Tacrolimus (Prograf Cap) 5 mg PO BID [facility] Last Admin: 07/02/17 08:49 Dose: 5 mg - Labs Labs: 07/02/17 05:45 07/02/17 05:45 PT 18.1 Seconds (9.8-13.1) H 06/28/17 06:15 INR 1.6 (0.9-1.2) H 06/28/17 06:15 APTT 30.4 Seconds (25.6-37.1) 06/28/17 06:15 - Constitutional Appears: Well, Older Than Stated Age, Cachectic - Head Exam Head Exam: ATRAUMATIC, NORMOCEPHALIC - Eye Exam Eye Exam: Normal appearance Pupil Exam: PERRL - ENT Exam ENT Exam: Normal Exam - Neck Exam Neck Exam: Full ROM, Normal Inspection. absent: Lymphadenopathy - Respiratory Exam Respiratory Exam: Clear to Ausculation Bilateral, NORMAL BREATHING PATTERN. absent: Respiratory Distress - Cardiovascular Exam Cardiovascular Exam: REGULAR RHYTHM, +S1, +S2. absent: JVD - GI/Abdominal Exam GI & Abdominal Exam: Soft, Tenderness, Normal Bowel Sounds Additional comments: mild LLQ tenderness, decreasing since admission - Rectal Exam Rectal Exam: Deferred - Neurological Exam Neurological Exam: Alert, Awake, Oriented x3 - Psychiatric Exam Psychiatric exam: Normal Affect, Normal Mood Assessment and Plan - Assessment and Plan (Free Text) Plan: 1) Diverticulitis, recurrent -CT abdomen shows 6 cm thick walled collection of fluid and gas adjacent to sigmoid colon. DDX includes giant sigmoid diverticulitis vs. communicating abscess. No evidence of urinary calculus or urinary tract obstruction. Cholelithiasis without evidence of cholecystitis. Mild anterior wedge compression of L1 vertebra, new since 03/2017 -surgery consult Dr. Sanz on board, appreciate recommendations -Fleet enema and barium enema done yesterday -surgery plan to take pt to OR for partial resection of sigmoid colon -Pre op labs ordered; EKG pending -ID consult, Dr. Rodriguez on board -continue IV Cipro, IV Flagyl, IV Aztreonam -Zofran prn for N/V -procalcitonin 0.77 -Tylenol, Morphine prn for pain control -continue Dextrose 5/0.45% NS -pt tolerated full liquid diet yesterday, progressed to heart healthy diet this morning 2) Sepsis, resolved -on admission: WBC 13.2; Tmax 100.5, lactic acid 1.2, started on cipro/flagyl -WBC 7.5 today -per ID, Aztreonam added to antibiotic therapy regimen -PICC line placed in R arm today -now afebrile, lactate normal, no leukocytosis -blood culture NGTD 3) Hypercalcemia -Calcium levels improving, down to 10.0 -Continue IV hydration -Cinacalcet 4) Hx of renal transplant -continue Mycophenolate and Prednisone -Dr. Glez on consult, recommends surgical intervention 5) Anemia -Hgb 10.0 -continue to monitor 6) Hypertension -Stable at present -continue Norvasc -monitor BP 7) Hyperlipidemia -continue Atorvastatin 8) Sacral decubitus ulcer, stage 1 -move pt q2h -wound care to evaluate -encouraged patient to move in the bed to prevent worsening of pressure ulcer 9) Recurrent UTIs -no urinary symptoms at present -urinalysis shows mild increase in urine WBCs, RBCs -continue IV abx 10) DVT prophylaxis -SCDs -Heparin 5000 units SC q8 11) Code status -full code
[2017-07-02] MEDS ORDERED: Phytonadione 10 mg/ml Inj (Adult) SC ONE (11:35)
[2017-07-02] MEDS: Aztreonam 1 GM in Sodium Chloride 0.9% 100 ML IVPB SCH (12:19)
[2017-07-02] MEDS ORDERED: Lidocaine 1% Inj (20ml) ONE (12:52)
[2017-07-02] MEDS ORDERED: Mag&Al/Simet/Diphen/Lido 237 ML KIT PO SCH (13:00)
[2017-07-02] MEDS ORDERED: Nystatin 100,000 Units/ml Oral Susp 5 ml UD PO SCH (13:00)
--- NOTE | 2017-07-02 13:35 | PCM.SURG1 ---
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 Axillary vein stenosis. Post-Operative Diagnosis: Diverticulitis Operation Performed: Single lumen picc placement right arm, 8 cm. Tip is in the proximal axilary vein. Specimen/Specimens Removed: NONE Estimated Blood Loss: EBL {In ML}: 2 Blood Products Given: N/A Drains Used: No Drains Post-Op Condition: Fair Date of Surgery/Procedure: 07/02/17 Time of Surgery/Procedure: 13:30
[2017-07-02] MEDS: Cholecalciferol 1,000 INTLU TAB PO SCH (14:14)
--- NOTE | 2017-07-02 17:21 | CARD ---
APPROVED REPORT EKG Measurement Heart [id number] <Conclusion> Sinus rhythm with premature atrial complexes Otherwise normal ECG
--- NOTE | 2017-07-02 20:11 | CP.PCM.PN ---
Subjective - Date & Time of Evaluation Date of Evaluation: 07/02/17 Time of Evaluation: 14:00 - Subjective Subjective: SEEN ON RENAL F/U ALL ABOVE EMR REVIEWED IN BED .. C/O VERY POOR APPETITE C/O DEJAN FEET NUMBNESS GETTING READY FOR SIGMOID SURGERY ON IVF .. ON IVAB RENAL FUNCTION REMAINS STABLE Objective - Vital Signs/Intake and Output Vital Signs (last 24 hours): Temp Pulse Resp BP Pulse Ox 97.7 F 88 12 138/70 97 07/02/17 17:57 07/02/17 17:57 07/02/17 17:57 07/02/17 17:57 07/02/17 17:16 Intake and Output: 07/02/17 07/03/17 18:59 06:59 Intake Total 200 Balance 200 - Medications Medications: Current Medications Acetaminophen (Tylenol 325mg Tab) 650 mg PO Q6 PRN PRN Reason: Pain, moderate (4-7) Acetaminophen (Tylenol 325mg Tab) 650 mg PO Q4 PRN PRN Reason: Fever >100.4 F Last Admin: 06/27/17 16:35 Dose: 650 mg Amlodipine Besylate (Norvasc) 5 mg PO DAILY [facility] Last Admin: 07/02/17 08:51 Dose: 5 mg Atorvastatin Calcium (Lipitor) 20 mg PO HS [facility] Last Admin: 07/01/17 21:02 Dose: 20 mg Cholecalciferol (Vitamin D) 1,000 iu PO DAILY [facility] Last Admin: 07/02/17 14:14 Dose: 1,000 iu Cinacalcet (Sensipar) 30 mg PO DAILY [facility] Last Admin: 07/02/17 08:52 Dose: 30 mg Heparin Sodium (Porcine) (Heparin) 5,000 units SC Q12 [facility]EN PRN Reason: Protocol Last Admin: 07/02/17 09:19 Dose: 5,000 units Home Med (Tacrolimus [Prograf]) 5 mg PO BID [facility] Metronidazole (Flagyl 500mg/100ml Ns) 100 mls @ 100 mls/hr IVPB Q8 [facility] PRN Reason: Protocol Last Admin: 07/02/17 18:38 Dose: 100 mls/hr Aztreonam 1 gm/ Sodium (Chloride) 100 mls @ 100 mls/hr IVPB Q12 [facility] PRN Reason: Protocol Last Admin: 07/02/17 12:19 Dose: 100 mls/hr Ciprofloxacin (Cipro 200mg/100ml D5w) 100 mls @ 100 mls/hr IVPB Q12 [facility] Last Admin: 07/02/17 20:03 Dose: 100 mls/hr Mycophenolate Mofetil (Cellcept Cap) 250 mg PO BID [facility] Last Admin: 07/02/17 17:21 Dose: 250 mg Ondansetron HCl (Zofran Inj) 4 mg IVP Q4 PRN PRN Reason: Nausea/Vomiting Pantoprazole Sodium (Protonix Ec Tab) 40 mg PO DAILY [facility] Last Admin: 07/02/17 08:50 Dose: 40 mg Prednisone (Prednisone Tab) 5 mg PO DAILY [facility] Last Admin: 07/02/17 08:51 Dose: 5 mg Tacrolimus (Prograf Cap) 5 mg PO BID [facility] Last Admin: 07/02/17 17:21 Dose: 5 mg - Labs Labs: 07/02/17 05:45 07/02/17 05:45 PT 18.1 Seconds (9.8-13.1) H 06/28/17 06:15 INR 1.6 (0.9-1.2) H 06/28/17 06:15 APTT 30.4 Seconds (25.6-37.1) 06/28/17 06:15 Assessment and Plan - Assessment and Plan (Free Text) Assessment: C/O CURRENT CARE C/O PRESENT MANAGEMENT C/O CURRENT MEDS
[2017-07-03] MEDS: Aztreonam 1 GM in Sodium Chloride 0.9% 100 ML IVPB SCH ×3 (00:16→23:31)
[2017-07-03] MEDS: metroNIDAZOLE 500mg/100ml NS 100 ML IVPB SCH ×3 (02:00→18:28)
[2017-07-03] MEDS ORDERED: Dextrose 5%/0.45% NS 1,000 ML IV SCH (02:30)
[2017-07-03 06:23] LABS: BASO % 0.1 % (0.0-2.0); EOS % 0.3 % (0.0-4.0); HEMATOCRIT 25.2 % (34.0-47.0); LYMPH # 1.8 K/uL (1.0-4.3); LYMPH % 24.5 % (20.0-40.0); MEAN CORPUSCULAR HEMOGLOBIN 28.4 pg (27.0-31.0); MEAN CORPUSCULAR HGB CONC 32.7 g/dL (33.0-37.0); MEAN PLATELET VOLUME 7.1 fl (7.2-11.7); MONO # 0.4 K/uL (0.0-0.8); MONO % 5.5 % (0.0-10.0); NEUT # 5.1 K/uL (1.8-7.0); NEUT % 69.6 % (50.0-75.0); RED CELL DISTRIBUTION WIDTH 15.3 % (11.5-14.5); WHITE BLOOD COUNT 7.3 K/uL (4.8-10.8)
[2017-07-03 06:44] LABS: ALB/GLOB RATIO 0.8 (1.0-2.1); ALKALINE PHOSPHATASE 209 U/L (38-126); ALT/SGPT 33 U/L (9-52); AST/SGOT 21 U/L (14-36); BILIRUBIN,TOTAL 0.2 mg/dl (0.2-1.3); BLOOD UREA NITROGEN 10 mg/dl (7-17); CALCIUM 9.7 mg/dL (8.4-10.2); CARBON DIOXIDE 26 mmol/L (22-30); CHLORIDE 109 mmol/L (98-107); GFR AFRICAN-AMERICAN > 60; GLUCOSE,RANDOM 82 mg/dL (65-105); POTASSIUM 3.5 MMOL/L (3.6-5.0); SODIUM 136 mmol/l (132-148); TOTAL PROTEIN 5.3 G/DL (6.3-8.2)
[2017-07-03 06:56] LABS: PARTIAL THROMBOPLASTIN TIME 28.7 Seconds (25.6-37.1)
[2017-07-03] MEDS ORDERED: Potassium Chloride 10 mEq ER Tab PO ONE (08:26)
--- NOTE | 2017-07-03 08:57 | CP.PCM.PN ---
Subjective - Date & Time of Evaluation Date of Evaluation: 07/03/17 Time of Evaluation: 08:54 - Subjective Subjective: 62 y/o female seen resting comfortably in bed this morning. Pt is attempting to eat breakfast but says it feels strange as she has not had solid foods in several days. Pt is tolerating the food fine at this time and denies nausea/ vomiting today or overnight. Pt says her left abdominal pain has decreased since admission. Pt is aware she will be going for surgery tomorrow and has discussed it with the surgery team. Pt says her stools are still loose at this time. Objective - Vital Signs/Intake and Output Vital Signs (last 24 hours): Temp Pulse Resp BP Pulse Ox 97.3 F L 81 20 144/73 100 07/03/17 08:15 07/03/17 08:15 07/03/17 08:15 07/03/17 08:15 07/03/17 08:15 Intake and Output: 07/03/17 07/03/17 06:59 18:59 Intake Total 1640 Balance 1640 - Medications Medications: Current Medications Acetaminophen (Tylenol 325mg Tab) 650 mg PO Q6 PRN PRN Reason: Pain, moderate (4-7) Acetaminophen (Tylenol 325mg Tab) 650 mg PO Q4 PRN PRN Reason: Fever >100.4 F Last Admin: 06/27/17 16:35 Dose: 650 mg Amlodipine Besylate (Norvasc) 5 mg PO DAILY [facility] Last Admin: 07/02/17 08:51 Dose: 5 mg Atorvastatin Calcium (Lipitor) 20 mg PO HS [facility] Last Admin: 07/02/17 21:51 Dose: 20 mg Cholecalciferol (Vitamin D) 1,000 iu PO DAILY [facility] Last Admin: 07/02/17 14:14 Dose: 1,000 iu Cinacalcet (Sensipar) 30 mg PO DAILY [facility] Last Admin: 07/02/17 08:52 Dose: 30 mg Heparin Sodium (Porcine) (Heparin) 5,000 units SC Q12 [facility] PRN Reason: Protocol Last Admin: 07/02/17 09:19 Dose: 5,000 units Home Med (Tacrolimus [Prograf]) 5 mg PO BID [facility] Metronidazole (Flagyl 500mg/100ml Ns) 100 mls @ 100 mls/hr IVPB Q8 [facility] PRN Reason: Protocol Last Admin: 07/03/17 02:00 Dose: 100 mls/hr Ciprofloxacin (Cipro 200mg/100ml D5w) 100 mls @ 100 mls/hr IVPB Q12 [facility] Last Admin: 07/02/17 20:03 Dose: 100 mls/hr Aztreonam 1 gm/ Sodium (Chloride) 100 mls @ 100 mls/hr IVPB Q12@0000,1200 [facility] PRN Reason: Protocol Last Admin: 07/03/17 00:16 Dose: 100 mls/hr Dextrose/Sodium Chloride (Dextrose 5%/0.45% Ns 1000 Ml) 1,000 mls @ 100 mls/hr IV .Q10H [facility] Stop: 07/03/17 12:29 Last Admin: 07/03/17 04:30 Dose: 100 mls/hr Metoprolol Tartrate (Lopressor) 12.5 mg PO Q12 [facility] Mycophenolate Mofetil (Cellcept Cap) 250 mg PO BID [facility] Last Admin: 07/02/17 17:21 Dose: 250 mg Ondansetron HCl (Zofran Inj) 4 mg IVP Q4 PRN PRN Reason: Nausea/Vomiting Pantoprazole Sodium (Protonix Ec Tab) 40 mg PO DAILY [facility] Last Admin: 07/02/17 08:50 Dose: 40 mg Prednisone (Prednisone Tab) 5 mg PO DAILY [facility] Last Admin: 07/02/17 08:51 Dose: 5 mg Tacrolimus (Prograf Cap) 5 mg PO BID [facility] Last Admin: 07/02/17 17:21 Dose: 5 mg - Labs Labs: 07/03/17 05:45 07/03/17 05:45 PT 14.2 Seconds (9.8-13.1) H 07/03/17 05:45 INR 1.3 (0.9-1.2) H 07/03/17 05:45 APTT 28.7 Seconds (25.6-37.1) 07/03/17 05:45 - Constitutional Appears: Well, Non-toxic, No Acute Distress, Older Than Stated Age, Cachectic - Head Exam Head Exam: ATRAUMATIC, NORMOCEPHALIC - Eye Exam Eye Exam: EOMI, Normal appearance Pupil Exam: PERRL - ENT Exam ENT Exam: Mucous Membranes Moist, Normal Exam - Neck Exam Neck Exam: Full ROM, Normal Inspection - Respiratory Exam Respiratory Exam: Clear to Ausculation Bilateral, NORMAL BREATHING PATTERN - Cardiovascular Exam Cardiovascular Exam: REGULAR RHYTHM, +S1, +S2 - GI/Abdominal Exam GI & Abdominal Exam: Tenderness, Normal Bowel Sounds Additional comments: palpable bulging noted to LLQ with tenderness to palpation - Rectal Exam Rectal Exam: Deferred - Extremities Exam Extremities Exam: Normal Capillary Refill, Normal Inspection. absent: Calf Tenderness - Neurological Exam Neurological Exam: Alert, Awake, Oriented x3 - Psychiatric Exam Psychiatric exam: Normal Affect, Normal Mood - Skin Skin Exam: Dry, Intact, Normal Color Assessment and Plan - Assessment and Plan (Free Text) Assessment: 1) Diverticulitis, recurrent -CT abdomen: 6 cm thick walled collection of fluid and gas adjacent to sigmoid colon. DDX includes giant sigmoid diverticulitis vs. communicating abscess. No evidence of urinary calculus or urinary tract obstruction. Cholelithiasis without evidence of cholecystitis. Mild anterior wedge compression of L1 vertebra, new since 03/2017 -surgery consult Dr. Sanz on board, appreciate recommendations -2 days s/p fleet enema and barium enema -surgery plan to take pt to OR for partial resection of sigmoid colon -Pre op labs ordered -transfused 2 units of FFP yesterday -INR down to 1.3 from 1.6 -EKG shows sinus rhythm with premature atrial complexes, otherwise normal EKG -cardiac Dr. Heath on board, to evaluate today prior to possible surgery tomorrow -ECHO today -ID consult, Dr. Rodriguez on board -continue IV Cipro, IV Flagyl, IV Aztreonam -Zofran prn for N/V -procalcitonin 0.77 -Tylenol, Morphine prn for pain control -started on Florastor and LR 100mL/hr - c/w heart healthy diet -pt to be NPO past midnight tonight prior to surgery tomorrow 2) Sepsis, resolved -on admission: WBC 13.2; Tmax 100.5, lactic acid 1.2, started on cipro/flagyl -WBC 7.5 today -per ID, Aztreonam added to antibiotic therapy regimen -PICC line placed in R arm today -now afebrile, lactate normal, no leukocytosis -blood culture NGTD 3) Hypercalcemia -Calcium levels improving, down to 10.0 -Continue IV hydration -Cinacalcet 4) Hx of renal transplant -continue Mycophenolate and Prednisone -Dr. Glez on consult, recommends surgical intervention 5) Anemia -Hgb 8.2 today down from 10.0 -new Hgb ordered - 8.6 this afternoon -1 unit PRBC transfused today -continue to monitor 6) Hypertension -Stable at present -continue Norvasc -Metoprolol added per cardiology -monitor BP 7) Hyperlipidemia -continue Atorvastatin 8) Sacral decubitus ulcer, stage 1 -move pt q2h -wound care to evaluate -encouraged patient to move in the bed to prevent worsening of pressure ulcer 9) Recurrent UTIs -no urinary symptoms at present -urinalysis shows mild increase in urine WBCs, RBCs -continue IV abx 10) DVT prophylaxis -SCDs -Heparin 5000 units SC q8 11) Code status -full code
[2017-07-03] MEDS: Ciprofloxacin 200mg/100ml D5W 100 ML IVPB SCH ×2 (09:10→21:03)
[2017-07-03] MEDS: Cholecalciferol 1,000 INTLU TAB PO SCH (09:11)
[2017-07-03] MEDS: Pantoprazole 40 mg EC Tab PO SCH (09:11)
--- NOTE | 2017-07-03 13:57 | VASCULAR ---
PROCEDURE: Date of procedure: 07/02/2017 Procedure: 1. Placement of a right arm midline PICC with ultrasound and fluoroscopic guidance, CPT 79425 2. PICC tip confirmation with spot radiograph Medications: 3cc 1 percent lidocaine Total Fluoro time: 29.1 seconds Radiation: 1.17 MGy EBL: 2 cc HISTORY: Infection requiring long-term IV antibiotics TECHNIQUE: Following informed consent and procedure time-out, the patient was placed supine on the interventional table and the right arm prepped and draped in the usual sterile fashion. Ultrasound showed thrombosed right and left arm graft. 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 Collateral veins are present. The brachial vein and lower arm is patent. After the skin was anesthetized with lidocaine, the brachial vein was accessed with micro micropuncture technique using ultrasound guidance. A guidewire was then advanced under fluoroscopic guidance into the vein. The guidewire could not be advanced centrally secondary occlusion of the axillary vein stent. An image documenting ultrasound guidance for vascular access was permanently saved. The length of the single-lumen 4 Macedonian PICC was trimmed to 8 centimeters and advanced through a peel-away sheath. The PICC was position with tip of PICC confirm a spot radiograph the proximal axillary vein. The PICC was secured to the patient's skin. The PICC was flushed. A biopatch and sterile dressing was applied. IMPRESSION: Placement of a single-lumen 4 Macedonian PICC trimmed to 8 centimeters via right brachial vein. The tip of the PICC is confirmed with spot radiograph and is in the proximal axillary vein. 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 Multiple collateral veins present in the arm.
[2017-07-03] MEDS: Lactated Ringer's 1,000 ML IV SCH (14:28)
--- NOTE | 2017-07-03 16:37 | CP.PCM.PN ---
Subjective - Date & Time of Evaluation Date of Evaluation: 07/03/17 Time of Evaluation: 16:35 - Subjective Subjective: General Surgery Note for Dr. Sanz This pt was seen and examined this AM at bedside. She reports no acute events overnight however her HGB this AM was 8.2 so she was transfused one unit of PRBC. I discussed surgical plans with her tomorrow and all questions were answered. She denies any fevers chills chest pain nausea vomiting or diarrhea. Objective - Vital Signs/Intake and Output Vital Signs (last 24 hours): Temp Pulse Resp BP Pulse Ox 97.7 F 83 17 136/69 99 07/03/17 15:55 07/03/17 15:55 07/03/17 15:55 07/03/17 15:55 07/03/17 15:00 Intake and Output: 07/03/17 07/03/17 06:59 18:59 Intake Total 1640 Balance 1640 - Medications Medications: Current Medications Acetaminophen (Tylenol 325mg Tab) 650 mg PO Q6 PRN PRN Reason: Pain, moderate (4-7) Acetaminophen (Tylenol 325mg Tab) 650 mg PO Q4 PRN PRN Reason: Fever >100.4 F Last Admin: 06/27/17 16:35 Dose: 650 mg Amlodipine Besylate (Norvasc) 5 mg PO DAILY [facility] Last Admin: 07/03/17 09:11 Dose: 5 mg Atorvastatin Calcium (Lipitor) 20 mg PO HS [facility] Last Admin: 07/02/17 21:51 Dose: 20 mg Cholecalciferol (Vitamin D) 1,000 iu PO DAILY [facility] Last Admin: 07/03/17 09:11 Dose: 1,000 iu Cinacalcet (Sensipar) 30 mg PO DAILY [facility] Last Admin: 07/03/17 09:11 Dose: 30 mg Home Med (Tacrolimus [Prograf]) 5 mg PO BID [facility] Metronidazole (Flagyl 500mg/100ml Ns) 100 mls @ 100 mls/hr IVPB Q8 [facility] PRN Reason: Protocol Last Admin: 07/03/17 09:09 Dose: 100 mls/hr Ciprofloxacin (Cipro 200mg/100ml D5w) 100 mls @ 100 mls/hr IVPB Q12 [facility] Last Admin: 07/03/17 09:10 Dose: 100 mls/hr Aztreonam 1 gm/ Sodium (Chloride) 100 mls @ 100 mls/hr IVPB Q12@0000,1200 [facility] PRN Reason: Protocol Last Admin: 07/03/17 11:02 Dose: 100 mls/hr Lactated Ringer's (Lactated Ringer's) 1,000 mls @ 100 mls/hr IV .Q10H [facility] Last Admin: 07/03/17 14:28 Dose: 100 mls/hr Metoprolol Tartrate (Lopressor) 12.5 mg PO Q12 [facility] Last Admin: 07/03/17 09:10 Dose: 12.5 mg Mycophenolate Mofetil (Cellcept Cap) 250 mg PO BID [facility] Last Admin: 07/03/17 09:11 Dose: 250 mg Ondansetron HCl (Zofran Inj) 4 mg IVP Q4 PRN PRN Reason: Nausea/Vomiting Pantoprazole Sodium (Protonix Ec Tab) 40 mg PO DAILY [facility] Last Admin: 07/03/17 09:11 Dose: 40 mg Prednisone (Prednisone Tab) 5 mg PO DAILY [facility] Last Admin: 07/03/17 09:11 Dose: 5 mg Saccharomyces Boulardii (Florastor) 250 mg PO BID [facility] Tacrolimus (Prograf Cap) 5 mg PO BID [facility] Last Admin: 07/03/17 09:11 Dose: 5 mg Vitamin B Complex/Vit C/Folic Acid (Nephro-Tabby) 1 tab PO DAILY [facility] - Labs Labs: 07/03/17 11:43 07/03/17 05:45 PT 14.2 Seconds (9.8-13.1) H 07/03/17 05:45 INR 1.3 (0.9-1.2) H 07/03/17 05:45 APTT 28.7 Seconds (25.6-37.1) 07/03/17 05:45 - Constitutional Appears: Non-toxic, No Acute Distress - Head Exam Head Exam: ATRAUMATIC, NORMOCEPHALIC - Eye Exam Eye Exam: EOMI - ENT Exam ENT Exam: Mucous Membranes Moist - Respiratory Exam Respiratory Exam: NORMAL BREATHING PATTERN - Cardiovascular Exam Cardiovascular Exam: REGULAR RHYTHM, +S1, +S2 - GI/Abdominal Exam GI & Abdominal Exam: Soft. absent: Guarding, Rigid, Tenderness - Extremities Exam Extremities Exam: Normal Inspection - Neurological Exam Neurological Exam: Alert, Awake - Psychiatric Exam Psychiatric exam: Normal Affect, Normal Mood - Skin Skin Exam: Dry, Intact Assessment and Plan - Assessment and Plan (Free Text) Assessment: 62yo F with CKD s/p kidney transplant, HTN, DM, recurrent diverticulitis and UTI presented with abdominal pain, vomiting and loose stools and significant weight loss, with CT: 6cm thick walled collection of fluid & gas adjacent to sigmoid colon, increased in size since 04/06/17. 07/01 Barium enema consistent with large colonic diverticulum. - Followup post transfusion labs - On IV antibiotics per ID currently on Cipro and Flagyl, Aztreonam - NPO Past Midnight - Patient is agreeable to segmental colon resection - Fleets Enema in AM - OR tomorrow AM - Discussed plan with Dr. Yvon Coates PGY2
[2017-07-03] MEDS: Saccharomyces Boulardi 250 mg Cap PO SCH (17:32)
--- NOTE | 2017-07-03 19:09 | CP.PCM.CON ---
History of Present Illness - History of Present Illness History of Present Illness: ASKED TO SEE PT FOR PRE-OPERATIVE SURGICAL RISK EVALUATION. PT HAS DIVERTICULAR DISEASE WITH MICRO PERFORATIONS AND REQUIRES DANNY-COLECTOMY. PT DENIES HX OF CAD OR CHF. DENIES CP, PALP, LH, DIZZINESS, SOB, ORTHOPNEA, PND, LENNIE. EKG REVEALS ST WITH NML AXIS AND NML INTERVALS. PRIOR ECHO REVEALED NML EF. ECHO OON THIS ADMISSION ( PER MY INTERPRETATION) REVEALS NML EF WITH UNDEFILED LV LIKELY DUE TO DEHYDRATION. OTHERWISE NO SIGNIFICANT ABN. PTS BP AND HR ARE STABLE. Review of Systems - Constitutional Constitutional: As Per HPI. absent: Anorexia, Chills, Daytime Sleepiness, Excessive Sweating, Fatigue, Fever, Frequent Falls, Headache, Increased Appetite , Lethargy, Malaise, Night Sweats, Snoring, Sleep Apnea, Weight Gain, Weight Loss, Weakness, Other - EENT Eyes: As Per HPI. absent: Blind Spots, Blurred Vision, Change in Vision, Decreased Night Vision, Diplopia, Discharge, Dry Eye, Exophthalmos, Floaters, Irritation, Itchy Eyes, Loss of Peripheral Vision, Pain, Photophobia, Requires Corrective Lenses, Sees Flashes, Spots in Vision, Tunnel Vision, Other Visual Disturbances, Loss of Vision, Other Ears: As Per HPI. absent: Decreased Hearing, Ear Discharge, Ear Pain, Tinnitus , Abnormal Hearing, Disequilibrium, Dizziness, Other Nose/Mouth/Throat: As Per HPI. absent: Epistaxis, Nasal Congestion, Nasal Discharge, Nasal Obstruction, Nasal Trauma, Nose Pain, Post Nasal Drip, Sinus Pain, Sinus Pressure, Bleeding Gums, Change in Voice, Dental Pain, Dry Mouth, Dysphagia, Halitosis, Hoarsness, Lip Swelling, Mouth Lesions, Mouth Pain, Odynophagia, Sore Throat, Throat Swelling, Tongue Swelling, Facial Pain, Neck Pain, Neck Mass, Other - Breasts Breasts: As Per HPI. absent: Change in Shape, Mass, Pain, Nipple Discharge, Nipple Inversion, Skin Changes, Swelling, Other - Cardiovascular Cardiovascular: As Per HPI. absent: Acrocyanosis, Chest Pain, Chest Pain at Rest, Chest Pain with Activity, Claudication, Diaphoresis, Dyspnea, Dyspnea on Exertion, Edema, Irregular Heart Rhythm, Pain Radiating to Arm/Neck/Jaw, Leg Edema, Leg Ulcers, Lightheadedness, Orthopnea, Palpitations, Paroxysmal Nocturnal Dyspnea, Pedal Edema, Radiating Pain, Rapid Heart Rate, Slow Heart Rate, Syncope, Other - Respiratory Respiratory: As Per HPI. absent: Cough, Dyspnea, Hemoptysis, Dyspnea on Exertion, Wheezing, Snoring, Stridor, Pain on Inspiration, Chest Congestion, Excessive Mucous Production, Change in Mucous Color, Pain with Coughing, Other - Gastrointestinal Gastrointestinal: Abdominal Pain, Change in Stool Character, Melena. absent: As Per HPI, Belching, Bloating, Change in Bowel Habits, Coffee Ground Emesis, Constipation, Cramping, Diarrhea, Dyspepsia, Dysphagia, Early Satiety, Excessive Flatus, Fecal Incontinence, Heartburn, Hematemesis, Hematochezia, Loose Stools, Nausea, Odynophagia, Temesmus, Vomiting, Other - Genitourinary Genitourinary: As Per HPI. absent: Change in Urinary Stream, Difficulty Urinating, Dysuria, Flank Pain, Hematuria, Pyuria, Nocturia, Urinary Incontinence, Urinary Frequency, Urinary Hesitance, Urinary Urgency, Voiding Freq/Small Amts, Freq UTI, Hx Renal/Bladder Calculi, Hx /Renal Surgery, Bladder Distension, Other - Reproductive: Female Reproductive:Female: As Per HPI. absent: Amenorrhea, Amenorrhea/ Control, Currently Menstual, Cycle <21 Days, Cycle >35 Days, Cycle Variable, Menses 1-7 Days, Menses >/= 8 Days, Menses Variable, Cycle > 4 Weeks Between, No Menses for 6 Months, Heavy Menses, Light Menses, Normal Menses, Spotting Between Cycles , S/P Hysterectomy, Menopausal, Post Menopausal, Premenarche, Abnormal Vaginal Bleeding, Dysmenorrhea, Dyspareunia, Genital Lesions, Genital Pruritis, Pelvic Pain, Prolapse Symptoms, Sexual Dysfunction, Vaginal Discharge, Vaginal Dryness , Vaginal Odor, Vaginal Pruritis, Other - Menstruation Menstruation: As Per HPI. absent: Amenorrhea, Amenorrhea/ Control, Currently Menstual, Cycle <21 Days, Cycle >35 Days, Cycle Variable, Menses 1-7 Days, Menses >/= 8 Days, Menses Variable, Cycle > 4 Weeks Between, No Menses for 6 Months, Heavy Menses, Light Menses, Normal Menses, Spotting Between Cycles , S/P Hysterectomy, Menopausal, Post Menopausal, Premenarche, Abnormal Vaginal Bleeding, Dysmenorrhea, Other - Musculoskeletal Musculoskeletal: As Per HPI. absent: Abnormal Gait, Arthralgias, Atrophy, Back Pain, Deformity, Joint Swelling, Limited Range of Motion, Loss of Height, Muscle Cramps, Muscle Weakness, Myalgias, Neck Pain, Numbness, Radiating Pain into Limb, Stiffness, Tingling, Other - Integumentary Integumentary: As Per HPI. absent: Acne, Alopecia, Bleeding Lesions, Change in Hair, Change in Nails, Change in Pigmentation, Changing Lesions, Dry Skin, Erythema, Furuncle, Hirsutism, Lesions, New Lesions, Non-Healing Lesions, Photosensitivity, Pruritus, Rash, Skin Pain, Skin Ulcer, Sores, Striae, Swelling , Unusual Bruising, Wounds, Jaundice, Other - Neurological Neurological: As Per HPI. absent: Abnormal Gait, Abnormal Hearing, Abnormal Movements, Abnormal Speech, Behavioral Changes, Burning Sensations, Confusion, Convulsions, Disequilibrium, Dizziness, Numbness, Focal Weakness, Frequent Falls , Headaches, Lack of Coordination, Loss of Vision, Memory Loss, Paresthesias, Radicular Pain, Restless Legs, Sensory Deficit, Syncope, Tingling, Tremor, Vertigo, Weakness, Other Visual Disturbances, Other - Psychiatric Psychiatric: As Per HPI. absent: Abnormal Sleep Pattern, Anhedonia, Anxiety, Auditory Hallucinations, Behavioral Changes, Change in Appetite, Change in Libido, Confusion, Depression, Difficulty Concentrating, Hallucinations, Homicidal Ideation, Hopelessness, Irritability, Memory Loss, Mood Swings, Panic Attacks, Paranoia, Suicidal Ideation, Visual Hallucinations, Tactile Hallucinations, Other - Endocrine Endocrine: As Per HPI. absent: Change in Body Appearance, Change in Libido, Cold Intolorance, Deepening of Voice, Excessive Sweating, Fatigue, Flushing, Heat Intolorance, Increase in Ring/Shoe/Hat Size, Palpitations, Polydipsia, Polyphagia, Polyuria, Other - Hematologic/Lymphatic Hematologic: As Per HPI. absent: Easy Bleeding, Easy Bruising, Lymphadenopathy , Other Past Patient History - Infectious Disease Hx of Infectious Diseases: None - Past Medical History & Family History Past Medical History?: Yes - Past Social History Smoking Status: Never Smoked Alcohol: None Drugs: Denies - CARDIAC Hx Cardiac Disorders: Yes Hx Hypercholesterolemia: Yes Hx Hypertension: Yes - PULMONARY Hx Respiratory Disorders: No - NEUROLOGICAL Hx Neurological Disorder: No - HEENT Hx HEENT Problems: No - RENAL Hx Chronic Kidney Disease: Yes Hx Dialysis: Yes Type of Dialysis Access: L AV fistula Other/Comment: kidney transplant - ENDOCRINE/METABOLIC Hx Endocrine Disorders: Yes Hx Diabetes Mellitus Type 2: Yes - HEMATOLOGICAL/ONCOLOGICAL Hx Blood Disorders: Yes Hx AIDS: No Hx Anemia: Yes Hx Human Immunodeficiency Virus (HIV): No - INTEGUMENTARY Hx Dermatological Problems: No - MUSCULOSKELETAL/RHEUMATOLOGICAL Hx Musculoskeletal Disorders: Yes Hx Arthritis: Yes Hx Falls: No - GASTROINTESTINAL Hx Gastrointestinal Disorders: Yes Hx Diarrhea: Yes Hx Diverticulitis: Yes Hx Nausea: Yes Hx Vomiting: Yes - GENITOURINARY/GYNECOLOGICAL Hx Genitourinary Disorders: Yes Hx Urinary Tract Infection: Yes - PSYCHIATRIC Hx Psychophysiologic Disorder: No Hx Substance Use: No - SURGICAL HISTORY Hx Surgeries: Yes Hx Arteriovenous Shunt: Yes Hx Section: Yes (x2) Hx Vascular Access Device: Yes Other/Comment: RIGHT KIDNEY TRANSPLANT - ANESTHESIA Hx Anesthesia: Yes Hx Anesthesia Reactions: No Hx Malignant Hyperthermia: No Has any member of the family had a problem w/ anesthesia?: No Meds Allergies/Adverse Reactions: Allergies Allergy/AdvReac Type Severity Reaction Status Date / Time cefazolin Allergy ITCHING Verified 06/27/17 09:48 iodine Allergy ITCHING Verified 06/27/17 09:48 vancomycin Allergy ITCHING Verified 06/27/17 09:48 - Medications Medications: Current Medications Acetaminophen (Tylenol 325mg Tab) 650 mg PO Q6 PRN PRN Reason: Pain, moderate (4-7) Acetaminophen (Tylenol 325mg Tab) 650 mg PO Q4 PRN PRN Reason: Fever >100.4 F Last Admin: 06/27/17 16:35 Dose: 650 mg Amlodipine Besylate (Norvasc) 5 mg PO DAILY [facility] Last Admin: 07/03/17 09:11 Dose: 5 mg Atorvastatin Calcium (Lipitor) 20 mg PO HS [facility] Last Admin: 07/02/17 21:51 Dose: 20 mg Cholecalciferol (Vitamin D) 1,000 iu PO DAILY [facility] Last Admin: 07/03/17 09:11 Dose: 1,000 iu Cinacalcet (Sensipar) 30 mg PO DAILY [facility] Last Admin: 07/03/17 09:11 Dose: 30 mg Home Med (Tacrolimus [Prograf]) 5 mg PO BID [facility] Metronidazole (Flagyl 500mg/100ml Ns) 100 mls @ 100 mls/hr IVPB Q8 BEN PRN Reason: Protocol Last Admin: 07/03/17 18:28 Dose: 100 mls/hr Ciprofloxacin (Cipro 200mg/100ml D5w) 100 mls @ 100 mls/hr IVPB Q12 [facility] Last Admin: 07/03/17 09:10 Dose: 100 mls/hr Aztreonam 1 gm/ Sodium (Chloride) 100 mls @ 100 mls/hr IVPB Q12@0000,1200 BEN PRN Reason: Protocol Last Admin: 07/03/17 11:02 Dose: 100 mls/hr Lactated Ringer's (Lactated Ringer's) 1,000 mls @ 100 mls/hr IV .Q10H [facility] Last Admin: 07/03/17 14:28 Dose: 100 mls/hr Metoprolol Tartrate (Lopressor) 12.5 mg PO Q12 [facility] Last Admin: 07/03/17 09:10 Dose: 12.5 mg Mycophenolate Mofetil (Cellcept Cap) 250 mg PO BID [facility] Last Admin: 07/03/17 17:33 Dose: 250 mg Ondansetron HCl (Zofran Inj) 4 mg IVP Q4 PRN PRN Reason: Nausea/Vomiting Pantoprazole Sodium (Protonix Ec Tab) 40 mg PO DAILY [facility] Last Admin: 07/03/17 09:11 Dose: 40 mg Prednisone (Prednisone Tab) 5 mg PO DAILY [facility] Last Admin: 07/03/17 09:11 Dose: 5 mg Saccharomyces Boulardii (Florastor) 250 mg PO BID [facility] Last Admin: 07/03/17 17:32 Dose: 250 mg Sodium Phosphate (Fleet Enema) 135 ml SD ONCE ONE Stop: 07/04/17 08:01 Tacrolimus (Prograf Cap) 5 mg PO BID [facility] Last Admin: 07/03/17 17:33 Dose: 5 mg Vitamin B Complex/Vit C/Folic Acid (Nephro-Tabby) 1 tab PO DAILY [facility] Physical Exam - Constitutional Appears: Well - Head Exam Head Exam: ATRAUMATIC, NORMAL INSPECTION, NORMOCEPHALIC - Eye Exam Eye Exam: EOMI, Normal appearance, PERRL. absent: Conjunctival injection, Nystagmus, Periorbital swelling, Periorbital tenderness, Scleral icterus Pupil Exam: NORMAL ACCOMODATION, PERRL. absent: Fixed, Irregular, Miosis, Mydriatic, Unequal - ENT Exam ENT Exam: Mucous Membranes Moist, Normal Exam. absent: Mucous Membranes Dry, Normal External Ear Exam, Normal Oropharynx, TM's Normal Bilaterally - Neck Exam Neck exam: Positive for: Normal Inspection. Negative for: Full Rom, Lymphadenopathy, Meningismus, Tenderness, Thyromegaly - Respiratory Exam Respiratory Exam: Clear to Auscultation Bilateral, NORMAL BREATHING PATTERN. absent: Accessory Muscle Use, Chest Wall Tenderness, Decreased Breath Sounds, Prolonged Expiratory Phase, Rales, Rhonchi, Wheezes, Respiratory Distress, Stridor - Cardiovascular Exam Cardiovascular Exam: REGULAR RHYTHM, +S1, +S2, Systolic Murmur. absent: Bradycardia, Tachycardia, Clicks, Diastolic murmur, Gallop, Irregular Rhythm, JVD, RRR, Rubs, +S4 - GI/Abdominal Exam GI & Abdominal Exam: Normal Bowel Sounds, Soft - Rectal Exam Rectal Exam: Deferred - Extremities Exam Extremities exam: Positive for: normal inspection. Negative for: calf tenderness, full ROM, joint swelling, normal capillary refill, pedal edema, tenderness, pedal pulses present - Back Exam Back exam: NORMAL INSPECTION. absent: CVA tenderness (L), CVA tenderness (R), FULL ROM, muscle spasm, paraspinal tenderness, rash noted, tenderness, vertebral tenderness - Neurological Exam Neurological exam: Alert, CN II-XII Intact, Normal Gait, Oriented x3, Reflexes Normal - Psychiatric Exam Psychiatric exam: Normal Affect, Normal Mood - Skin Skin Exam: Dry, Intact, Normal Color, Warm Results - Vital Signs Recent Vital Signs: Last Vital Signs Temp 97.3 F L 07/03/17 18:30 Pulse 84 07/03/17 18:30 Resp 20 07/03/17 18:30 BP 133/71 07/03/17 18:30 Pulse Ox 99 07/03/17 18:30 - Labs Result Diagrams: 07/03/17 11:43 07/03/17 05:45 Labs: Laboratory Results - last 24 hr 07/02/17 07/02/17 07/03/17 05:45 21:27 05:35 WBC RBC Hgb Hct MCV MCH MCHC RDW Plt Count MPV Neut % (Auto) Lymph % (Auto) [place] % (Auto) Eos % (Auto) Baso % (Auto) Neut # Lymph # [place] # Eos # Baso # PT INR APTT Sodium Potassium Chloride Carbon Dioxide Anion Gap BUN Creatinine Est GFR ( Amer) Est GFR (Non-Af Amer) POC Glucose (mg/dL) 107 82 Random Glucose Calcium Total Bilirubin AST ALT Alkaline Phosphatase Total Protein Albumin Globulin Albumin/Globulin Ratio Blood Type O POSITIVE Antibody Screen Negative Crossmatch See Detail BBK History Checked Patient has bt 07/03/17 07/03/17 07/03/17 05:45 05:45 05:45 WBC 7.3 RBC 2.90 L Hgb 8.2 L Hct 25.2 L MCV 87.0 MCH 28.4 MCHC 32.7 L RDW 15.3 H Plt Count 226 MPV 7.1 L Neut % (Auto) 69.6 Lymph % (Auto) 24.5 [place] % (Auto) 5.5 Eos % (Auto) 0.3 Baso % (Auto) 0.1 Neut # 5.1 Lymph # 1.8 [place] # 0.4 Eos # 0.0 Baso # 0.0 PT 14.2 H INR 1.3 H APTT 28.7 Sodium 136 Potassium 3.5 L Chloride 109 H Carbon Dioxide 26 Anion Gap 5 L BUN 10 Creatinine 0.9 Est GFR ( Amer) > 60 Est GFR (Non-Af Amer) > 60 POC Glucose (mg/dL) Random Glucose 82 Calcium 9.7 Total Bilirubin 0.2 AST 21 ALT 33 Alkaline Phosphatase 209 H D Total Protein 5.3 L Albumin 2.4 L Globulin 2.9 Albumin/Globulin Ratio 0.8 L Blood Type Antibody Screen Crossmatch BBK History Checked 07/03/17 11:43 WBC RBC Hgb 8.6 L Hct MCV MCH MCHC RDW Plt Count MPV Neut % (Auto) Lymph % (Auto) [place] % (Auto) Eos % (Auto) Baso % (Auto) Neut # Lymph # [place] # Eos # Baso # PT INR APTT Sodium Potassium Chloride Carbon Dioxide Anion Gap BUN Creatinine Est GFR ( Amer) Est GFR (Non-Af Amer) POC Glucose (mg/dL) Random Glucose Calcium Total Bilirubin AST ALT Alkaline Phosphatase Total Protein Albumin Globulin Albumin/Globulin Ratio Blood Type Antibody Screen Crossmatch BBK History Checked Assessment & Plan (1) Pre-operative cardiovascular examination Status: Acute (2) Hx of essential hypertension Status: Acute (3) Diverticulitis Status: Acute (4) Diverticulosis Status: Acute (5) History of kidney transplant Status: Acute (6) Perforated diverticulum of large intestine Status: Acute (7) Anemia Status: Chronic - Assessment and Plan (Free Text) Plan: PT HAS NO SX OF ACTIVE CAD OR CHF. EKG AND ECHO NML. SHE MAY PROCEED WITH SURGERY. SHE IS LOW RISK FOR CV EVENTS WITH ANESTHESIA. I DID START PT ON LOW DOSE BETABLOCKERS TO BE CONTINUED PERIOPERATIVELY AND FOR 2-3 WEEKS POST OP. INTRA OP WOULD USE IV BB'S FOR HR AND BP CONTROL IF NEED BE. THANK YOU. 75 MIN TOTAL CARE TIME.
--- NOTE | 2017-07-03 21:38 | CARD ---
APPROVED REPORT EXAM: Two-dimensional and M-mode echocardiogram with Doppler and color Doppler. Other Information Quality : GoodRhythm : NSR INDICATION Pre-Op 2D DIMENSIONS IVSd1.02 (0.7-1.1cm)LVDd3.20 (3.9-5.9cm) LVOT Diameter1.79 (1.8-2.4cm)PWd0.95 (0.7-1.1cm) IVSs1.42 (0.8-1.2cm)LVDs2.67 (2.5-4.0cm) FS (%) 16.7 %PWs0.90 (0.8-1.2cm) LVEF (%)55.0 (>50%) M-Mode DIMENSIONS Left Atrium (MM)3.25 (2.5-4.0cm)Aortic Root2.70 (2.2-3.7cm) Aortic Cusp Exc.1.60 (1.5-2.0cm) Aortic Valve AoV Peak Yfgjzgki189.4cm/sAoV VTI31.0cmAO Peak GR.11mmHg LVOT Peak Hrddwbim166.9cm/sLVOT VTI28.95cmAO Mean GR.6mmHg JASS (VMAX)1.22oy6ELA (VTI)1.79cm2 Mitral Valve MV E Pxwthrro22.9cm/sMV DECEL [id number] A Gxrxgruz87.7cm/s MV XDC02poR/A ratio0.8MVA (PHT)3.70cm2 TDI Lateral E' Peak V11.90cm/sMedial E' Peak V4.73cm/sE/Lateral E'5.9 E/Medial E'14.8 Tricuspid Valve TR Peak Wwdnrhtg494fg/sRAP [id number] Peak Gr.26mmHg [id number] LEFT VENTRICLE The left ventricle is normal size. Asymmetric septal hypertrophy The left ventricular function is normal. The left ventricular ejection fraction is within the normal range. There is normal LV segmental wall motion. Transmitral Doppler flow pattern is Grade I-abnormal relaxation pattern. RIGHT VENTRICLE The right ventricle is normal size. There is normal right ventricular wall thickness. The right ventricular systolic function is normal. ATRIA The left atrium size is normal. The right atrium size is normal. AORTIC VALVE The aortic valve is not well visualized. No aortic regurgitation is present. There is trace subvalvular gradient MITRAL VALVE The mitral valve is mildly thickened. There is systolic anterior motion of the mitral valve. There is no mitral valve stenosis. Mitral regurgitation is trace to mild. TRICUSPID VALVE The tricuspid valve is normal in structure. There is mild pulmonary hypertension. PULMONIC VALVE The pulmonary valve is normal in structure. There is no pulmonic valvular regurgitation. GREAT VESSELS The aortic root is normal in size. The IVC was not visualized. PERICARDIAL EFFUSION The pericardium appears normal. <Conclusion> The left ventricle is normal size. Asymmetric septal hypertrophy There is systolic anterior motion of the mitral valve. The left ventricular function is normal. The left ventricular ejection fraction is within the normal range. There is normal LV segmental wall motion. Transmitral Doppler flow pattern is Grade I-abnormal relaxation pattern. Mitral regurgitation is trace to mild. There is mild pulmonary hypertension.
--- NOTE | 2017-07-03 22:47 | CP.PCM.PN ---
Subjective - Date & Time of Evaluation Date of Evaluation: 07/03/17 Time of Evaluation: 15:00 - Subjective Subjective: SEEN ON RENAL F/U GETTING PREPARED FOR SURGERY IN AM RECIEVED 1 U PRBC ON IVF ON IVAB RENAL FUNCTION WNL CA BACK TO WNL Objective - Vital Signs/Intake and Output Vital Signs (last 24 hours): Temp Pulse Resp BP Pulse Ox 97.3 F L 75 20 122/74 99 07/03/17 18:30 07/03/17 21:02 07/03/17 18:30 07/03/17 21:02 07/03/17 18:30 Intake and Output: 07/03/17 07/04/17 18:59 06:59 Intake Total 1640 Balance 1640 - Medications Medications: Current Medications Acetaminophen (Tylenol 325mg Tab) 650 mg PO Q6 PRN PRN Reason: Pain, moderate (4-7) Acetaminophen (Tylenol 325mg Tab) 650 mg PO Q4 PRN PRN Reason: Fever >100.4 F Last Admin: 06/27/17 16:35 Dose: 650 mg Amlodipine Besylate (Norvasc) 5 mg PO DAILY [facility] Last Admin: 07/03/17 09:11 Dose: 5 mg Atorvastatin Calcium (Lipitor) 20 mg PO HS [facility] Last Admin: 07/03/17 21:03 Dose: 20 mg Cholecalciferol (Vitamin D) 1,000 iu PO DAILY [facility] Last Admin: 07/03/17 09:11 Dose: 1,000 iu Cinacalcet (Sensipar) 30 mg PO DAILY [facility] Last Admin: 07/03/17 09:11 Dose: 30 mg Home Med (Tacrolimus [Prograf]) 5 mg PO BID [facility] Metronidazole (Flagyl 500mg/100ml Ns) 100 mls @ 100 mls/hr IVPB Q8 BEN PRN Reason: Protocol Last Admin: 07/03/17 18:28 Dose: 100 mls/hr Ciprofloxacin (Cipro 200mg/100ml D5w) 100 mls @ 100 mls/hr IVPB Q12 [facility] Last Admin: 07/03/17 21:03 Dose: 100 mls/hr Aztreonam 1 gm/ Sodium (Chloride) 100 mls @ 100 mls/hr IVPB Q12@0000,1200 BEN PRN Reason: Protocol Last Admin: 07/03/17 11:02 Dose: 100 mls/hr Lactated Ringer's (Lactated Ringer's) 1,000 mls @ 100 mls/hr IV .Q10H [facility] Last Admin: 07/03/17 14:28 Dose: 100 mls/hr Metoprolol Tartrate (Lopressor) 12.5 mg PO Q12 [facility] Last Admin: 07/03/17 21:02 Dose: 12.5 mg Mycophenolate Mofetil (Cellcept Cap) 250 mg PO BID [facility] Last Admin: 07/03/17 17:33 Dose: 250 mg Ondansetron HCl (Zofran Inj) 4 mg IVP Q4 PRN PRN Reason: Nausea/Vomiting Pantoprazole Sodium (Protonix Ec Tab) 40 mg PO DAILY [facility] Last Admin: 07/03/17 09:11 Dose: 40 mg Prednisone (Prednisone Tab) 5 mg PO DAILY [facility] Last Admin: 07/03/17 09:11 Dose: 5 mg Saccharomyces Boulardii (Florastor) 250 mg PO BID [facility] Last Admin: 07/03/17 17:32 Dose: 250 mg Sodium Phosphate (Fleet Enema) 135 ml [place] ONCE ONE Stop: 07/04/17 08:01 Tacrolimus (Prograf Cap) 5 mg PO BID [facility] Last Admin: 07/03/17 17:33 Dose: 5 mg Vitamin B Complex/Vit C/Folic Acid (Nephro-Tabby) 1 tab PO DAILY [facility] - Labs Labs: 07/03/17 11:43 07/03/17 05:45 PT 14.2 Seconds (9.8-13.1) H 07/03/17 05:45 INR 1.3 (0.9-1.2) H 07/03/17 05:45 APTT 28.7 Seconds (25.6-37.1) 07/03/17 05:45 Assessment and Plan - Assessment and Plan (Free Text) Assessment: S/P RENAL TRX .. RENAL FUNCTION WNL ANEMIA .. RECIEVED 1 U PRBC HYPERCALCEMIA .. CA BACK TO WNL P : FOR SURGERY IN AM C/O CURRENT MEDS C/O IVF C/O IVAB
[2017-07-04] MEDS: metroNIDAZOLE 500mg/100ml NS 100 ML IVPB SCH ×3 (01:08→17:00)
[2017-07-04 06:20] LABS: HEMATOCRIT 30.8 % (34.0-47.0); MEAN CELL VOLUME 87.3 fl (81.0-99.0); MEAN CORPUSCULAR HEMOGLOBIN 27.9 pg (27.0-31.0); MEAN CORPUSCULAR HGB CONC 31.9 g/dL (33.0-37.0); RED CELL DISTRIBUTION WIDTH 15.3 % (11.5-14.5); WHITE BLOOD COUNT 5.6 K/uL (4.8-10.8)
[2017-07-04 06:50] LABS: ALB/GLOB RATIO 0.9 (1.0-2.1); ALKALINE PHOSPHATASE 237 U/L (38-126); ALT/SGPT 26 U/L (9-52); AST/SGOT 34 U/L (14-36); BILIRUBIN,TOTAL 0.2 mg/dl (0.2-1.3); BLOOD UREA NITROGEN 12 mg/dl (7-17); CALCIUM 9.5 mg/dL (8.4-10.2); CARBON DIOXIDE 25 mmol/L (22-30); CHLORIDE 107 mmol/L (98-107); GFR AFRICAN-AMERICAN > 60; GLUCOSE,RANDOM 97 mg/dL (65-105); POTASSIUM 4.3 MMOL/L (3.6-5.0); SODIUM 135 mmol/l (132-148); TOTAL PROTEIN 5.2 G/DL (6.3-8.2)
[2017-07-04 07:04] LABS: PARTIAL THROMBOPLASTIN TIME 29.8 Seconds (25.6-37.1)
[2017-07-04] MEDS: Saccharomyces Boulardi 250 mg Cap PO SCH ×3 (08:40→09:23)
[2017-07-04] MEDS: Cholecalciferol 1,000 INTLU TAB PO SCH ×2 (09:08→09:25)
--- NOTE | 2017-07-04 09:14 | CP.PCM.PN ---
Subjective - Date & Time of Evaluation Date of Evaluation: 07/04/17 Time of Evaluation: 09:14 - Subjective Subjective: 62 y/o female seen at bedside this morning prior to abdominal surgery. Pt says her left lower abdominal pain is the same as yesterday, with slight improvements noted since admission. Pt says she is frustrated with being sick and wants it to be over with. Pt says she does not want to take her meds because it makes her stomach hurt. Pt confirms she has not had anything to eat or drink after midnight, but is aware she may take her medicine with a small amount of water. Pt admits to several loose bowel movements last night. Pt denies F/C/N/V/CP/SOB. Objective - Vital Signs/Intake and Output Vital Signs (last 24 hours): Temp Pulse Resp BP Pulse Ox 97.8 F 73 16 140/70 97 07/04/17 07:33 07/04/17 08:46 07/04/17 07:33 07/04/17 08:46 07/04/17 07:33 Intake and Output: 07/04/17 07/04/17 06:59 18:59 Intake Total 1500 Balance 1500 - Medications Medications: Current Medications Acetaminophen (Tylenol 325mg Tab) 650 mg PO Q6 PRN PRN Reason: Pain, moderate (4-7) Acetaminophen (Tylenol 325mg Tab) 650 mg PO Q4 PRN PRN Reason: Fever >100.4 F Last Admin: 06/27/17 16:35 Dose: 650 mg Amlodipine Besylate (Norvasc) 5 mg PO DAILY [facility] Last Admin: 07/03/17 09:11 Dose: 5 mg Atorvastatin Calcium (Lipitor) 20 mg PO HS [facility] Last Admin: 07/03/17 21:03 Dose: 20 mg Cholecalciferol (Vitamin D) 1,000 iu PO DAILY [facility] Last Admin: 07/03/17 09:11 Dose: 1,000 iu Cinacalcet (Sensipar) 30 mg PO DAILY [facility] Last Admin: 07/03/17 09:11 Dose: 30 mg Home Med (Tacrolimus [Prograf]) 5 mg PO BID [facility] Metronidazole (Flagyl 500mg/100ml Ns) 100 mls @ 100 mls/hr IVPB Q8 [facility] PRN Reason: Protocol Last Admin: 07/04/17 01:08 Dose: 100 mls/hr Ciprofloxacin (Cipro 200mg/100ml D5w) 100 mls @ 100 mls/hr IVPB Q12 [facility] Last Admin: 07/03/17 21:03 Dose: 100 mls/hr Aztreonam 1 gm/ Sodium (Chloride) 100 mls @ 100 mls/hr IVPB Q12@0000,1200 [facility] PRN Reason: Protocol Last Admin: 07/03/17 23:31 Dose: 100 mls/hr Lactated Ringer's (Lactated Ringer's) 1,000 mls @ 100 mls/hr IV .Q10H [facility] Last Admin: 07/04/17 00:00 Dose: Not Given Metoprolol Tartrate (Lopressor) 12.5 mg PO Q12 [facility] Last Admin: 07/04/17 08:46 Dose: 12.5 mg Mycophenolate Mofetil (Cellcept Cap) 250 mg PO BID [facility] Last Admin: 07/03/17 17:33 Dose: 250 mg Ondansetron HCl (Zofran Inj) 4 mg IVP Q4 PRN PRN Reason: Nausea/Vomiting Pantoprazole Sodium (Protonix Ec Tab) 40 mg PO DAILY [facility] Last Admin: 07/03/17 09:11 Dose: 40 mg Prednisone (Prednisone Tab) 5 mg PO DAILY [facility] Last Admin: 07/03/17 09:11 Dose: 5 mg Saccharomyces Boulardii (Florastor) 250 mg PO BID [facility] Last Admin: 07/03/17 17:32 Dose: 250 mg Tacrolimus (Prograf Cap) 5 mg PO BID [facility] Last Admin: 07/03/17 17:33 Dose: 5 mg Vitamin B Complex/Vit C/Folic Acid (Nephro-Tabby) 1 tab PO DAILY [facility] - Labs Labs: 07/04/17 06:00 07/04/17 06:00 PT 13.9 Seconds (9.8-13.1) H 07/04/17 06:00 INR 1.3 (0.9-1.2) H 07/04/17 06:00 APTT 29.8 Seconds (25.6-37.1) 07/04/17 06:00 - Constitutional Appears: Well, Non-toxic, Older Than Stated Age, Cachectic - Head Exam Head Exam: ATRAUMATIC, NORMOCEPHALIC - Eye Exam Eye Exam: EOMI, Normal appearance Pupil Exam: PERRL - ENT Exam ENT Exam: Mucous Membranes Moist, Normal Exam - Neck Exam Neck Exam: Full ROM, Normal Inspection. absent: Tenderness - Respiratory Exam Respiratory Exam: Clear to Ausculation Bilateral, NORMAL BREATHING PATTERN - Cardiovascular Exam Cardiovascular Exam: REGULAR RHYTHM, +S1, +S2. absent: JVD - GI/Abdominal Exam GI & Abdominal Exam: Soft, Tenderness, Normal Bowel Sounds Additional comments: left lower quadrant tenderness - Rectal Exam Rectal Exam: Deferred - Neurological Exam Neurological Exam: Alert, Awake, Oriented x3 - Psychiatric Exam Psychiatric exam: Normal Affect, Normal Mood - Skin Skin Exam: Dry, Intact, Normal Color, Warm Additional comments: bilateral lower extremities with xerosis and flaky skin stage 1 sacral decubitus ulcer improving, decreased erythema noted, mild xerosis present Assessment and Plan - Assessment and Plan (Free Text) Assessment: 1) Diverticulitis, recurrent -CT abdomen: 6 cm thick walled collection of fluid and gas adjacent to sigmoid colon. DDX includes giant sigmoid diverticulitis vs. communicating abscess. No evidence of urinary calculus or urinary tract obstruction. Cholelithiasis without evidence of cholecystitis. Mild anterior wedge compression of L1 vertebra, new since 03/2017 -surgery consult Dr. Sanz on board, appreciate recommendations -pt to go to OR today with Dr. Sanz at 1:30pm for partial sigmoid resection -Pre op labs in chart -transfused 2 units of FFP yesterday -INR down to 1.3 from 1.6 -EKG shows sinus rhythm with premature atrial complexes, otherwise normal EKG -cardiac Dr. Heath on board, pt cleared for surgery as low risk from cardiac standpoint -pt is medically optimized to proceed with surgery at this time -Pt to be NPO except meds after midnight -Pt refused AM meds today -ID consult, Dr. Rodriguez on board -continue IV Cipro, IV Flagyl, IV Aztreonam -Zofran prn for N/V -procalcitonin 0.77 -Tylenol, Morphine prn for pain control -continue Florastor and LR 100mL/hr 2) Sepsis, resolved -on admission: WBC 13.2; Tmax 100.5, lactic acid 1.2, started on cipro/flagyl -WBC 5.6 today -per ID, Aztreonam added to antibiotic therapy regimen -PICC line intact to R arm -now afebrile, lactate normal, no leukocytosis -blood culture final showed no growth 3) Hypercalcemia -Calcium levels improving, down to 9.5 -Continue IV fluids -Cinacalcet 4) Hx of renal transplant -continue Mycophenolate and Prednisone -Dr. Glez on consult, recommends surgical intervention 5) Anemia -Hgb 9.8 up from 8.2 -1 unit PRBC transfused yesterday -continue to monitor 6) Hypertension -Stable at present -continue Norvasc -Metoprolol added per cardiology, to continue taking 2-3 weeks post-op -monitor BP 7) Hyperlipidemia -continue Atorvastatin 8) Sacral decubitus ulcer, stage 1 -move pt q2h -wound care to evaluate -encouraged patient to move in the bed to prevent worsening of pressure ulcer 9) Recurrent UTIs -no urinary symptoms at present -UA shows mild increase in urine WBCs, RBCs -continue IV abx 10) DVT prophylaxis -SCDs -Heparin 5000 units SC q8, on hold prior to surgery today 11) Code status -full code
[2017-07-04] MEDS: Pantoprazole 40 mg EC Tab PO SCH (09:22)
[2017-07-04] MEDS: Ciprofloxacin 200mg/100ml D5W 100 ML IVPB SCH ×2 (09:24→21:01)
[2017-07-04] MEDS: Multivitamin Vitamin B Complex (Nephro-Vite) Tab PO SCH ×2 (09:24→11:06)
[2017-07-04] MEDS ORDERED: Midazolam 2 MG/2 ML VIAL ONE (12:58)
[2017-07-04] MEDS ORDERED: ePHEDrine 50 mg/ml Inj ONE (12:58)
[2017-07-04] MEDS ORDERED: Propofol 10 mg/ml Inj (20 ML) ONE (12:58)
[2017-07-04] MEDS ORDERED: Etomidate 20 mg/10ml Inj IV ONE (12:59)
[2017-07-04] MEDS ORDERED: Rocuronium 10 mg/ml (5 ml) ONE (12:59)
[2017-07-04] MEDS ORDERED: Neostigmine Methylsulfate 2 MG/2 ML ML IV ONE (13:12)
[2017-07-04] MEDS ORDERED: Succinylcholine 200 mg/10 ml Inj IV ONE (13:12)
[2017-07-04] MEDS ORDERED: Sodium Chloride 0.9% 500 ML IV ONE (13:56)
[2017-07-04] MEDS ORDERED: Lactated Ringer's 1,000 ML IV ONE ×2 (13:56→17:50)
[2017-07-04] MEDS ORDERED: Sodium Chloride 0.9% 1,000 ML IV ONE (14:43)
[2017-07-04] MEDS ORDERED: Cellulose Hemostat 2X3 Sheet TP ONE (15:32)
--- NOTE | 2017-07-04 16:47 | PCM.SURG1 ---
Surgeon's Initial Post Op Note - Surgeon's Notes Surgeon: Dr. Sanz Science Writer: Dr. Coates PGY2, Dr. Webb PGY1 Type of Anesthesia: General Endo Pre-Operative Diagnosis: Sigmoid Giant Diverticula Operative Findings: See Operative report Post-Operative Diagnosis: Sigmoid Giant Diverticula X2 Operation Performed: Segmental Sigmoidectomy with colorectal anastamosis Specimen/Specimens Removed: Sigmoid colon and diverticula Estimated Blood Loss: EBL {In ML}: 300 Blood Products Given: PRBC (1 unit) Drains Used: [place] Post-Op Condition: Good Date of Surgery/Procedure: 07/04/17 Time of Surgery/Procedure: 16:47
[2017-07-04] MEDS ORDERED: Lactated Ringer's 1,000 ML IV SCH ×2 (17:00→17:45)
[2017-07-04] MEDS: Lactated Ringer's 1,000 ML IV SCH ×2 (21:06)
[2017-07-04] MEDS: Aztreonam 1 GM in Sodium Chloride 0.9% 100 ML IVPB SCH (23:59)
[2017-07-05] MEDS: metroNIDAZOLE 500mg/100ml NS 100 ML IVPB SCH ×2 (01:20→08:39)
[2017-07-05 06:11] LABS: BASO % 0.2 % (0.0-2.0); EOS % 0.3 % (0.0-4.0); HEMATOCRIT 31.3 % (34.0-47.0); LYMPH # 1.5 K/uL (1.0-4.3); LYMPH % 9.9 % (20.0-40.0); MEAN CELL VOLUME 87.1 fl (81.0-99.0); MEAN CORPUSCULAR HEMOGLOBIN 27.9 pg (27.0-31.0); MEAN PLATELET VOLUME 7.4 fl (7.2-11.7); MONO # 0.5 K/uL (0.0-0.8); MONO % 3.1 % (0.0-10.0); NEUT # 12.8 K/uL (1.8-7.0); NEUT % 86.5 % (50.0-75.0); PLATELET COUNT 171 K/uL (130-400); RED CELL DISTRIBUTION WIDTH 15.4 % (11.5-14.5); WHITE BLOOD COUNT 14.8 K/uL (4.8-10.8)
[2017-07-05 06:38] LABS: BLOOD UREA NITROGEN 13 mg/dl (7-17); CALCIUM 8.3 mg/dL (8.4-10.2); CARBON DIOXIDE 22 mmol/L (22-30); CHLORIDE 108 mmol/L (98-107); GFR AFRICAN-AMERICAN > 60; GLUCOSE,RANDOM 102 mg/dL (65-105); POTASSIUM 4.2 MMOL/L (3.6-5.0); SODIUM 129 mmol/l (132-148)
[2017-07-05] MEDS: Ciprofloxacin 200mg/100ml D5W 100 ML IVPB SCH ×4 (08:36→21:34)
[2017-07-05] MEDS: Saccharomyces Boulardi 250 mg Cap PO SCH ×2 (08:45→16:45)
[2017-07-05] MEDS: Multivitamin Vitamin B Complex (Nephro-Vite) Tab PO SCH (08:46)
[2017-07-05] MEDS: Pantoprazole 40 mg EC Tab PO SCH (08:47)
[2017-07-05] MEDS: Cholecalciferol 1,000 INTLU TAB PO SCH (08:47)
--- NOTE | 2017-07-05 08:52 | CP.PCM.PN ---
Subjective - Date & Time of Evaluation Date of Evaluation: 07/05/17 Time of Evaluation: 08:50 - Subjective Subjective: 62 y/o female seen at bedside this morning, complaining of nausea. Pt does not wish to attempt a liquid or solid diet because she is afraid of how her stomach will tolerate it. Pt says her pain is a 6 or 7 at her surgical site but the Morphine helps to significantly minimize the pain. Pt denies F/C/V/CP/SOB. Objective - Vital Signs/Intake and Output Vital Signs (last 24 hours): Temp Pulse Resp BP Pulse Ox 98.3 F 95 H 20 139/82 100 07/05/17 08:28 07/05/17 08:28 07/05/17 08:28 07/05/17 08:28 07/05/17 08:28 Intake and Output: 07/05/17 07/05/17 06:59 18:59 Intake Total 1300 Output Total 540 Balance 760 - Medications Medications: Current Medications Acetaminophen (Tylenol 325mg Tab) 650 mg PO Q6 PRN PRN Reason: Pain, moderate (4-7) Acetaminophen (Tylenol 325mg Tab) 650 mg PO Q4 PRN PRN Reason: Fever >100.4 F Last Admin: 06/27/17 16:35 Dose: 650 mg Amlodipine Besylate (Norvasc) 5 mg PO DAILY [facility] Last Admin: 07/03/17 09:11 Dose: 5 mg Atorvastatin Calcium (Lipitor) 20 mg PO HS [facility] Last Admin: 07/04/17 21:05 Dose: 20 mg Cholecalciferol (Vitamin D) 1,000 iu PO DAILY [facility] Last Admin: 07/03/17 09:11 Dose: 1,000 iu Cinacalcet (Sensipar) 30 mg PO DAILY [facility] Last Admin: 07/03/17 09:11 Dose: 30 mg Home Med (Tacrolimus [Prograf]) 5 mg PO BID [facility] Metronidazole (Flagyl 500mg/100ml Ns) 100 mls @ 100 mls/hr IVPB Q8 [facility] PRN Reason: Protocol Last Admin: 07/05/17 01:20 Dose: 100 mls/hr Ciprofloxacin (Cipro 200mg/100ml D5w) 100 mls @ 100 mls/hr IVPB Q12 [facility] Last Admin: 07/04/17 21:01 Dose: 100 mls/hr Aztreonam 1 gm/ Sodium (Chloride) 100 mls @ 100 mls/hr IVPB Q12@0000,1200 [facility] PRN Reason: Protocol Last Admin: 07/04/17 23:59 Dose: 100 mls/hr Lactated Ringer's (Lactated Ringer's) 1,000 mls @ 100 mls/hr IV .Q10H [facility] Last Admin: 07/04/17 21:06 Dose: Not Given Sodium Chloride (Sodium Chloride 0.9%) 1,000 mls @ 100 mls/hr IV .Q10H [facility] Stop: 07/06/17 07:04 Lactic Acid (Lac-Hydrin 12% Lotion (225 G)) 1 applic TOP TID [facility] Metoprolol Tartrate (Lopressor) 12.5 mg PO Q12 [facility] Last Admin: 07/04/17 21:02 Dose: 12.5 mg Morphine Sulfate (Morphine) 2 mg IVP Q4 PRN PRN Reason: Pain, moderate (4-7) Last Admin: 07/05/17 06:30 Dose: 2 mg Mycophenolate Mofetil (Cellcept Cap) 250 mg PO BID [facility] Last Admin: 07/03/17 17:33 Dose: 250 mg Ondansetron HCl (Zofran Inj) 4 mg IVP Q4 PRN PRN Reason: Nausea/Vomiting Pantoprazole Sodium (Protonix Ec Tab) 40 mg PO DAILY [facility] Last Admin: 07/04/17 09:22 Dose: 40 mg Prednisone (Prednisone Tab) 5 mg PO DAILY [facility] Last Admin: 07/03/17 09:11 Dose: 5 mg Saccharomyces Boulardii (Florastor) 250 mg PO BID [facility] Last Admin: 07/03/17 17:32 Dose: 250 mg Tacrolimus (Prograf Cap) 5 mg PO BID [facility] Last Admin: 07/03/17 17:33 Dose: 5 mg Vitamin B Complex/Vit C/Folic Acid (Nephro-Tabby) 1 tab PO DAILY [facility] - Labs Labs: 07/05/17 05:29 07/05/17 05:29 PT 13.9 Seconds (9.8-13.1) H 07/04/17 06:00 INR 1.3 (0.9-1.2) H 07/04/17 06:00 APTT 29.8 Seconds (25.6-37.1) 07/04/17 06:00 - Constitutional Appears: Non-toxic, No Acute Distress, Older Than Stated Age, Confused - Head Exam Head Exam: ATRAUMATIC, NORMOCEPHALIC - Eye Exam Eye Exam: EOMI, Normal appearance Pupil Exam: PERRL - ENT Exam ENT Exam: Mucous Membranes Moist, Normal Exam - Neck Exam Neck Exam: Full ROM, Normal Inspection. absent: Lymphadenopathy, Tenderness - Respiratory Exam Respiratory Exam: Clear to Ausculation Bilateral, NORMAL BREATHING PATTERN. absent: Rhonchi, Wheezes - Cardiovascular Exam Cardiovascular Exam: REGULAR RHYTHM, +S1, +S2. absent: JVD - GI/Abdominal Exam GI & Abdominal Exam: Soft, Tenderness Additional comments: postoperative surgical dressing intact to abdomen, no strikethrough at present cassandra drain with serosanguinous drainage noted tenderness noted to left lower quadrant on light palpation - Rectal Exam Rectal Exam: Deferred - Exam Additional comments: valdivia cath in place - Extremities Exam Extremities Exam: Normal Capillary Refill. absent: Calf Tenderness, Tenderness - Neurological Exam Neurological Exam: Alert, Awake, Oriented x3 - Psychiatric Exam Psychiatric exam: Flat Affect - Skin Skin Exam: Dry, Intact Additional comments: ecchymosis noted to dorsum of right hand, likely secondary to attempted IV placement stage 1 sacral decubitus ulcer, improving, with minimal erythema xerosis noted to bilateral lower extremities, improving surgical incision site to lower middle quadrant of abdomen, covered by post op surgical dressing Assessment and Plan - Assessment and Plan (Free Text) Assessment: 1) Diverticulitis -CT abdomen: 6 cm thick walled collection of fluid and gas adjacent to sigmoid colon. DDX includes giant sigmoid diverticulitis vs. communicating abscess -1 day s/p sigmoid colon resection with colorectal anastamosis with Dr. Sanz -cardiology Dr. Heath on consult -ID consult, Dr. Rodriguez on board -continue IV Cipro, IV Aztreonam - Flagyl D/C -Zofran prn for N/V -Tylenol, Morphine prn for pain control 2) Sepsis, resolved -on admission: WBC 13.2; Tmax 100.5, lactic acid 1.2 -WBC 14.8 today, likely secondary to surgery yesterday -continue IV Cipro, Aztreonam -PICC line intact to R arm -Valdivia catheter in place -at present, afebrile and lactate WNL -blood cx final - no growth 3) Hypercalcemia -Ca levels improving, down to 8.3 -Continue IV fluids -Cinacalcet 4) Hx of renal transplant -continue Mycophenolate and Prednisone -Dr. Glez on consult 5) Anemia -Hgb 10.0 -s/p transfusion 2 units PRBC -continue to monitor 6) Hypertension -Stable -continue Norvasc -Metoprolol added per cardiology, to continue taking 2-3 weeks post-op -monitor BP 7) Hyperlipidemia -continue Atorvastatin 8) Sacral decubitus ulcer, stage 1 -move pt q2h -encouraged patient to move in bed to prevent worsening of pressure ulcer -nutrashield ointment BID 9) Recurrent UTIs -no urinary symptoms at present -UA shows mild increase in urine WBCs, RBCs -continue IV abx 10) DVT prophylaxis -SCDs -Heparin 5000 units SC q8, on hold prior to surgery today 11) Code status -full code
--- NOTE | 2017-07-05 09:11 | CP.PCM.PN ---
Subjective - Date & Time of Evaluation Date of Evaluation: 07/05/17 Time of Evaluation: 09:01 - Subjective Subjective: General Surgery Progress Note For Dr. Sanz This patient was seen and examined this AM at bedside. She reports a pain of 8/ 10, she reports she was tolerating fluids without issue. She denies fevers, chills, chest pain, nausea or vomiting. Objective - Vital Signs/Intake and Output Vital Signs (last 24 hours): Temp Pulse Resp BP Pulse Ox 98.3 F 93 H 20 139/82 100 07/05/17 08:28 07/05/17 08:49 07/05/17 08:28 07/05/17 08:49 07/05/17 08:28 Intake and Output: 07/05/17 07/05/17 06:59 18:59 Intake Total 1300 Output Total 540 Balance 760 - Medications Medications: Current Medications Acetaminophen (Tylenol 325mg Tab) 650 mg PO Q6 PRN PRN Reason: Pain, moderate (4-7) Acetaminophen (Tylenol 325mg Tab) 650 mg PO Q4 PRN PRN Reason: Fever >100.4 F Last Admin: 06/27/17 16:35 Dose: 650 mg Amlodipine Besylate (Norvasc) [address] [facility] Last Admin: 07/05/17 08:49 Dose: 5 mg Atorvastatin Calcium (Lipitor) [address] [facility] Last Admin: 07/04/17 21:05 Dose: 20 mg Cholecalciferol (Vitamin D) 1,[address] [facility] Last Admin: 07/05/17 08:47 Dose: 1,000 intlu Cinacalcet (Sensipar) [address] [facility] Last Admin: 07/05/17 08:48 Dose: 30 mg Home Med (Tacrolimus [Prograf]) [address] [facility] Metronidazole (Flagyl 500mg/100ml Ns) 100 mls @ 100 mls/hr IVPB Q8 [facility] PRN Reason: Protocol Last Admin: 07/05/17 08:39 Dose: 100 mls/hr Ciprofloxacin (Cipro 200mg/100ml D5w) 100 mls @ 100 mls/hr IVPB Q12 [facility] Last Admin: 07/05/17 08:36 Dose: 100 mls/hr Aztreonam 1 gm/ Sodium (Chloride) 100 mls @ 100 mls/hr IVPB Q12@0000,1200 [facility] PRN Reason: Protocol Last Admin: 07/04/17 23:59 Dose: 100 mls/hr Lactated Ringer's (Lactated Ringer's) 1,000 mls @ 100 mls/hr IV .Q10H [facility] Last Admin: 07/04/17 21:06 Dose: Not Given Sodium Chloride (Sodium Chloride 0.9%) 1,000 mls @ 100 mls/hr IV .Q10H [facility] Stop: 07/06/17 07:04 Lactic Acid (Lac-Hydrin 12% Lotion (225 G)) [address] [facility] Last Admin: 07/05/17 08:44 Dose: 1 applic Metoprolol Tartrate (Lopressor) 12.[address] [facility] Last Admin: 07/05/17 08:45 Dose: 12.5 mg Morphine Sulfate (Morphine) 2 mg IVP Q4 PRN PRN Reason: Pain, moderate (4-7) Last Admin: 07/05/17 06:30 Dose: 2 mg Mycophenolate Mofetil (Cellcept Cap) [address] [facility] Last Admin: 07/05/17 08:47 Dose: 250 mg Ondansetron HCl (Zofran Inj) 4 mg IVP Q4 PRN PRN Reason: Nausea/Vomiting Last Admin: 07/05/17 08:56 Dose: 4 mg Pantoprazole Sodium (Protonix Ec Tab) [address] [facility] Last Admin: 07/05/17 08:47 Dose: 40 mg Prednisone (Prednisone Tab) [address] [facility] Last Admin: 07/05/17 08:46 Dose: 5 mg Saccharomyces Boulardii (Florastor) [address] [facility] Last Admin: 07/05/17 08:45 Dose: 250 mg Tacrolimus (Prograf Cap) [address] [facility] Last Admin: 07/05/17 08:50 Dose: 5 mg Vitamin B Complex/Vit C/Folic Acid (Nephro-Tabby) [address] [facility] Last Admin: 07/05/17 08:46 Dose: 1 tab - Labs Labs: 07/05/17 05:29 07/05/17 05:29 PT 13.9 Seconds (9.8-13.1) H 07/04/17 06:00 INR 1.3 (0.9-1.2) H 07/04/17 06:00 APTT 29.8 Seconds (25.6-37.1) 07/04/17 06:00 - Constitutional Appears: Non-toxic, No Acute Distress - Head Exam Head Exam: ATRAUMATIC, NORMOCEPHALIC - Eye Exam Eye Exam: EOMI - Respiratory Exam Respiratory Exam: NORMAL BREATHING PATTERN - Cardiovascular Exam Cardiovascular Exam: REGULAR RHYTHM, +S1, +S2 - GI/Abdominal Exam GI & Abdominal Exam: Soft, Tenderness. absent: Firm, Guarding, Rigid Additional comments: dressing clean dry and intact, appropriately tender, cassandra drain with serosanguinous output. - Neurological Exam Neurological Exam: Alert, Awake - Psychiatric Exam Psychiatric exam: Normal Affect, Normal Mood - Skin Skin Exam: Dry, Intact Assessment and Plan - Assessment and Plan (Free Text) Assessment: This is a 62F who is POD#1 s/p sigmoidectomy with primary colorectal anastamosis and doing well. Monitor drain output Advance diet as tolerated monitor bowel function Continue antibiotics continue pain control Will discuss with Dr. Yvon Coates PGY2
[2017-07-05 09:23] LABS: NEUTROPHIL 83 % (42-75); TOTAL CELLS COUNTED 100
[2017-07-05 09:25] LABS: LARGE PLATELETS PRESENT
[2017-07-05] MEDS ORDERED: Oxycodone/Acetaminophen 5/325 mg Tab PO PRN (09:26)
[2017-07-05 12:05] LABS: BLOOD UREA NITROGEN 13 mg/dl (7-17); CALCIUM 8.2 mg/dL (8.4-10.2); CARBON DIOXIDE 24 mmol/L (22-30); CHLORIDE 106 mmol/L (98-107); GFR AFRICAN-AMERICAN > 60; GLUCOSE,RANDOM 80 mg/dL (65-105); POTASSIUM 3.8 MMOL/L (3.6-5.0); SODIUM 132 mmol/l (132-148)
[2017-07-05] MEDS: Aztreonam 1 GM in Sodium Chloride 0.9% 100 ML IVPB SCH ×2 (12:35)
--- NOTE | 2017-07-05 21:24 | CP.PCM.PN ---
Subjective - Date & Time of Evaluation Date of Evaluation: 07/05/17 Time of Evaluation: 15:00 - Subjective Subjective: SEEN ON RENAL F/U ALONG WITH DR RAM WAS ABLE TO TOLERATE LITTLE FLIUD C/O MILD NAUSIOUSNESS NO BM BUT SHE DID PASS FLATUS ABDO PAIN TOLERABLE D/W DR RAM AT LENGTH Objective - Vital Signs/Intake and Output Vital Signs (last 24 hours): Temp Pulse Resp BP Pulse Ox 97.9 F 95 H 20 143/73 97 07/05/17 16:04 07/05/17 16:04 07/05/17 16:04 07/05/17 16:04 07/05/17 16:04 Intake and Output: 07/05/17 07/06/17 18:59 06:59 Intake Total 1350 Output Total 565 Balance 785 - Medications Medications: Current Medications Acetaminophen (Tylenol 325mg Tab) 650 mg PO Q6 PRN PRN Reason: Pain, moderate (4-7) Acetaminophen (Tylenol 325mg Tab) 650 mg PO Q4 PRN PRN Reason: Fever >100.4 F Last Admin: 06/27/17 16:35 Dose: 650 mg Amlodipine Besylate (Norvasc) 5 mg PO DAILY [facility] Last Admin: 07/05/17 08:49 Dose: 5 mg Atorvastatin Calcium (Lipitor) 20 mg PO HS [facility] Last Admin: 07/04/17 21:05 Dose: 20 mg Cholecalciferol (Vitamin D) 1,000 intlu PO DAILY [facility] Last Admin: 07/05/17 08:47 Dose: Not Given Cinacalcet (Sensipar) 30 mg PO DAILY [facility] Last Admin: 07/05/17 08:48 Dose: 30 mg Home Med (Tacrolimus [Prograf]) 5 mg PO BID [facility] Aztreonam 1 gm/ Sodium (Chloride) 100 mls @ 100 mls/hr IVPB Q12@0000,1200 [facility]EN PRN Reason: Protocol Last Admin: 07/05/17 12:35 Dose: 100 mls/hr Lactated Ringer's (Lactated Ringer's) 1,000 mls @ 100 mls/hr IV .Q10H [facility] Last Admin: 07/04/17 21:06 Dose: Not Given Sodium Chloride (Sodium Chloride 0.9%) 1,000 mls @ 100 mls/hr IV .Q10H [facility] Stop: 07/06/17 07:04 Ciprofloxacin (Cipro 200mg/100ml D5w) 100 mls @ 100 mls/hr IVPB Q12 [facility] Lactic Acid (Lac-Hydrin 12% Lotion (225 G)) 1 applic TOP TID [facility] Last Admin: 07/05/17 16:44 Dose: 1 applic Methylprednisolone (Solu-Medrol) 5 mg IVP DAILY [facility] Metoprolol Tartrate (Lopressor) 12.5 mg PO Q12 [facility] Last Admin: 07/05/17 08:45 Dose: 12.5 mg Morphine Sulfate (Morphine) 2 mg IVP Q4 PRN PRN Reason: Pain, moderate (4-7) Last Admin: 07/05/17 06:30 Dose: 2 mg Mycophenolate Mofetil (Cellcept Cap) 250 mg PO BID [facility] Last Admin: 07/05/17 16:45 Dose: 250 mg Ondansetron HCl (Zofran Inj) 4 mg IVP Q6 [facility] Last Admin: 07/05/17 16:46 Dose: 4 mg Oxycodone/Acetaminophen (Percocet 5/325 Mg Tab) 1 tab PO Q6 PRN PRN Reason: Pain, moderate (4-7) Stop: 07/08/17 09:27 Pantoprazole Sodium (Protonix Inj) 40 mg IVP DAILY [facility] Saccharomyces Boulardii (Florastor) 250 mg PO BID [facility] Last Admin: 07/05/17 16:45 Dose: 250 mg Tacrolimus (Prograf Cap) 5 mg PO BID [facility] Last Admin: 07/05/17 16:46 Dose: 5 mg Vitamin B Complex/Vit C/Folic Acid (Nephro-Tabby) 1 tab PO DAILY [facility] Last Admin: 07/05/17 08:46 Dose: 1 tab - Labs Labs: 07/05/17 05:29 07/05/17 11:47 PT 13.9 Seconds (9.8-13.1) H 07/04/17 06:00 INR 1.3 (0.9-1.2) H 07/04/17 06:00 APTT 29.8 Seconds (25.6-37.1) 07/04/17 06:00 Assessment and Plan - Assessment and Plan (Free Text) Assessment: S/P RENAL TRX .. RENAL FUNCTION GOOD ELECTROLYTES ABN .. NA DOWN TO 129 ANEMIA .. RECIEVED 1 U PRBC S/P SIGMOIDECTOMY FOR SEVERE DIVERTICULAR DISEASE MMP P : C/O CURRENT IVF .. DISSOLVE ALL IV MEDS IN NS COMPATIBLE C/O IVAB C/O IMMUNOSUPRESANT MEDS PT FOR AMBULATION KEEP ROCHA FOR TODAY FOR CONVENIENCE .. MAY BE CAN BE REMOVED TOMORROW IF PT CAN GO TO THE BATH ROOM FREELY
--- NOTE | 2017-07-05 22:44 | OP ---
PROCEDURE DATE: 07/04/2017 SURGEON: Liliam Sanz MD. ASSISTANT PROFESSOR OF MARINE BIOLOGY: Dr. Asher and Dr. Webb. TYPE OF ANESTHESIA: General. ANESTHESIA ADMINISTERED BY: Dr. Castillo and Dr. Meyer. PREOPERATIVE DIAGNOSIS: Giant diverticulum of the sigmoid colon. POSTOPERATIVE DIAGNOSES: Giant diverticulum and diverticular abscess of sigmoid colon. PROCEDURE: Sigmoid colon resection with primary anastomosis. DESCRIPTION OF OPERATION: With the patient in the supine position, the abdomen was prepped and draped in the usual sterile manner. A midline incision was made downward from just above the umbilicus, taken down through the subcutaneous tissue and the peritoneal cavity was entered in the midline. There was a small amount of omentum adherent to the area of the incision from the patient's previous renal transplant and this was sharply taken down to enter the peritoneal cavity. The area of the sigmoid colon was identified and lying lateral to the midportion of the sigmoid colon with a soft, globular rounded mass approximately 5 inches in diameter consistent with a giant diverticulum. This was noted to be softly adherent to the left pelvic sidewall and adherent as well to the patient's left fallopian tube and ovary. These attachments were all freed up and the diverticulum was noted to be communicating with the lateral aspect of the distal sigmoid colon. Just distal to the area of this diverticulum, additional inflammatory reaction was identified and upon dissecting this area, there appeared to be a second diverticulum, which communicated with a thick-walled inflammatory process. The patient's rectum was palpable posterior to the uterus within the pelvis and it could be followed up to a relatively normal area of rectum just above the level of the sacral promontory. More proximal to this, there was the colon appeared diverted into the inflammatory process. The rectum was dissected and encircled with a Olivia drain, allowing the inflammatory mass to be dissected upward off the dome of the uterus and freed from an attachment to the area above the pubic tubercle where it appeared to enter a thickened abscess cavity. With this cavity opened, the lumen of the bowel was instrumented and in fact the colon did pass into the rectum and eventually into the distal rectum. At this point, the rectum was divided just above the sacrum with a TA stapler and the proximal sigmoid colon just proximal to the large diverticulum was also divided after it was noted that there was adequate length for an anastomosis between the sigmoid and the rectum. Once the colon had been divided proximally and distally, the intervening segment containing the large diverticulum and the diverticular abscess were dissected free of their inflammatory attachments. The mesentery was clamped, divided and ligated with 2-0 silk ties and the segment was removed. The dome of the uterus and the inner surface of the inflammatory cavity were cauterized and Surgicel applied for hemostasis and the specimen was removed. The staple line at the top of the rectum was then excised and a hand-sewn anastomosis was performed between the sigmoid colon and the rectum with a back layer of interrupted 3-0 silk sutures and running full-thickness sutures of 2-0 Vicryl, which were completed circumferentially with the anterior wall being performed using [place]-type sutures. The anterior portion of the anastomosis was also reinforced with seromuscular interrupted sutures of 3-0 silk. The anastomosis was palpated for patency and noted to easily admit a fingertip and after irrigating and suctioning the pelvis, a 19-Yakut Adama drain was placed in the pelvis and beneath the area of the previous abscess and brought out through a left lower quadrant stab incision. The fascia was then closed with running suture of double-stranded #1 PDS and the skin was closed with rex. A dry sterile dressing was applied. The patient tolerated the procedure well and transferred to the recovery room in stable condition. Estimated blood loss for the procedure was 300 mL and she received 1 unit of packed red blood cell transfusion during the procedure. Liliam Sanz MD
[2017-07-05] MEDS: Sodium Chloride 0.9% 1,000 ML IV SCH (22:56)
[2017-07-06] MEDS: Aztreonam 1 GM in Sodium Chloride 0.9% 100 ML IVPB SCH ×2 (00:19→10:00)
[2017-07-06] MEDS: Lactated Ringer's 1,000 ML IV SCH (03:00)
[2017-07-06] MEDS: Sodium Chloride 0.9% 1,000 ML IV SCH (03:15)
--- NOTE | 2017-07-06 04:41 | CP.PCM.PN ---
Subjective - Date & Time of Evaluation Date of Evaluation: 07/06/17 Time of Evaluation: 04:39 - Subjective Subjective: General Surgery Progress Note For Dr. Sanz This patient was seen and examined this AM at bedside. She reports better pain control on new pain regiment. She reports she was tolerating fluids without issue. She reports flatus denies BM. Drain with serosanguinous output. Objective - Vital Signs/Intake and Output Vital Signs (last 24 hours): Temp Pulse Resp BP Pulse Ox 97.6 F 94 H 19 95/71 L 96 07/06/17 00:50 07/06/17 00:50 07/06/17 00:50 07/06/17 00:50 07/06/17 00:50 Intake and Output: 07/05/17 07/06/17 18:59 06:59 Intake Total 1350 Output Total 565 Balance 785 - Medications Medications: Current Medications Acetaminophen (Tylenol 325mg Tab) 650 mg PO Q6 PRN PRN Reason: Pain, moderate (4-7) Acetaminophen (Tylenol 325mg Tab) 650 mg PO Q4 PRN PRN Reason: Fever >100.4 F Last Admin: 06/27/17 16:35 Dose: 650 mg Amlodipine Besylate (Norvasc) 5 mg PO DAILY [facility] Last Admin: 07/05/17 08:49 Dose: 5 mg Atorvastatin Calcium (Lipitor) 20 mg PO HS [facility] Last Admin: 07/04/17 21:05 Dose: 20 mg Cholecalciferol (Vitamin D) 1,000 intlu PO DAILY [facility] Last Admin: 07/05/17 08:47 Dose: Not Given Cinacalcet (Sensipar) 30 mg PO DAILY [facility] Last Admin: 07/05/17 08:48 Dose: 30 mg Home Med (Tacrolimus [Prograf]) 5 mg PO BID [facility] Aztreonam 1 gm/ Sodium (Chloride) 100 mls @ 100 mls/hr IVPB Q12@0000,1200 BEN PRN Reason: Protocol Last Admin: 07/06/17 00:19 Dose: 100 mls/hr Lactated Ringer's (Lactated Ringer's) 1,000 mls @ 100 mls/hr IV .Q10H [facility] Last Admin: 07/04/17 21:06 Dose: Not Given Sodium Chloride (Sodium Chloride 0.9%) 1,000 mls @ 100 mls/hr IV .Q10H [facility] Stop: 07/06/17 07:04 Last Admin: 07/06/17 03:15 Dose: Not Given Ciprofloxacin (Cipro 200mg/100ml D5w) 100 mls @ 100 mls/hr IVPB Q12 [facility] Last Admin: 07/05/17 21:32 Dose: 100 mls/hr Lactic Acid (Lac-Hydrin 12% Lotion (225 G)) 1 applic TOP TID [facility] Last Admin: 07/05/17 16:44 Dose: 1 applic Methylprednisolone (Solu-Medrol) 5 mg IVP DAILY [facility] Metoprolol Tartrate (Lopressor) 12.5 mg PO Q12 [facility] Last Admin: 07/05/17 21:37 Dose: 12.5 mg Morphine Sulfate (Morphine) 2 mg IVP Q4 PRN PRN Reason: Pain, moderate (4-7) Last Admin: 07/05/17 06:30 Dose: 2 mg Mycophenolate Mofetil (Cellcept Cap) 250 mg PO BID [facility] Last Admin: 07/05/17 16:45 Dose: 250 mg Ondansetron HCl (Zofran Inj) 4 mg IVP Q6 [facility] Last Admin: 07/06/17 04:33 Dose: 4 mg Oxycodone/Acetaminophen (Percocet 5/325 Mg Tab) 1 tab PO Q6 PRN PRN Reason: Pain, moderate (4-7) Stop: 07/08/17 09:27 Pantoprazole Sodium (Protonix Inj) 40 mg IVP DAILY [facility] Saccharomyces Boulardii (Florastor) 250 mg PO BID [facility] Last Admin: 07/05/17 16:45 Dose: 250 mg Tacrolimus (Prograf Cap) 5 mg PO BID [facility] Last Admin: 07/05/17 16:46 Dose: 5 mg Vitamin B Complex/Vit C/Folic Acid (Nephro-Tabby) 1 tab PO DAILY [facility] Last Admin: 07/05/17 08:46 Dose: 1 tab - Labs Labs: 07/05/17 05:29 07/05/17 11:47 PT 13.9 Seconds (9.8-13.1) H 07/04/17 06:00 INR 1.3 (0.9-1.2) H 07/04/17 06:00 APTT 29.8 Seconds (25.6-37.1) 07/04/17 06:00 - Constitutional Appears: Non-toxic, No Acute Distress - Head Exam Head Exam: ATRAUMATIC, NORMOCEPHALIC - Eye Exam Eye Exam: EOMI, Normal appearance - ENT Exam ENT Exam: Mucous Membranes Moist - Respiratory Exam Respiratory Exam: Clear to Ausculation Bilateral, NORMAL BREATHING PATTERN - GI/Abdominal Exam GI & Abdominal Exam: Soft. absent: Distended, Firm, Guarding, Rigid, Tenderness - Neurological Exam Neurological Exam: Alert, Awake - Psychiatric Exam Psychiatric exam: Normal Affect, Normal Mood - Skin Skin Exam: Dry, Intact Assessment and Plan - Assessment and Plan (Free Text) Assessment: This is a 62F who is POD#2 s/p sigmoidectomy with primary colorectal anastamosis and doing well. Vital signs stable, yoli monitor leukocytosis Monitor drain output Advance diet as tolerated monitor bowel function Continue antibiotics continue pain control Will discuss with Dr. Yvon Coates PGY2
[2017-07-06 06:59] LABS: HEMATOCRIT 28.2 % (34.0-47.0); MEAN CELL VOLUME 85.5 fl (81.0-99.0); MEAN CORPUSCULAR HEMOGLOBIN 28.4 pg (27.0-31.0); MEAN CORPUSCULAR HGB CONC 33.2 g/dL (33.0-37.0); RED CELL DISTRIBUTION WIDTH 15.6 % (11.5-14.5); WHITE BLOOD COUNT 11.9 K/uL (4.8-10.8)
[2017-07-06 07:56] LABS: ALB/GLOB RATIO 0.8 (1.0-2.1); ALKALINE PHOSPHATASE 119 U/L (38-126); ALT/SGPT 32 U/L (9-52); AST/SGOT 15 U/L (14-36); BILIRUBIN,TOTAL 0.3 mg/dl (0.2-1.3); BLOOD UREA NITROGEN 11 mg/dl (7-17); CALCIUM 8.7 mg/dL (8.4-10.2); CARBON DIOXIDE 20 mmol/L (22-30); CHLORIDE 107 mmol/L (98-107); GFR AFRICAN-AMERICAN > 60; GLUCOSE,RANDOM 54 mg/dL (65-105); POTASSIUM 3.5 MMOL/L (3.6-5.0); SODIUM 133 mmol/l (132-148); TOTAL PROTEIN 4.7 G/DL (6.3-8.2)
[2017-07-06] MEDS: Ciprofloxacin 200mg/100ml D5W 100 ML IVPB SCH (08:30)
[2017-07-06] MEDS: Multivitamin Vitamin B Complex (Nephro-Vite) Tab PO SCH (08:31)
[2017-07-06] MEDS: Saccharomyces Boulardi 250 mg Cap PO SCH ×2 (08:32→16:38)
[2017-07-06] MEDS: MethylPREDNISolone 40 mg Vial IVP SCH (08:35)
[2017-07-06] MEDS ORDERED: METHYLPREDNISOLONE IV SCH (09:00)
[2017-07-06] MEDS ORDERED: SODIUM CHLORIDE 0.9% IV SCH (09:00)
--- NOTE | 2017-07-06 10:08 | CP.PCM.PN ---
Subjective - Date & Time of Evaluation Date of Evaluation: 07/06/17 Time of Evaluation: 10:08 - Subjective Subjective: 62 YO F was seen at bedside resting in her chair with her son. States she slept well overnight. Denies any diarrhea, nausea, or vomiting. - However has some burning in her stomach which she contributes to the antibiotics, dispite being on IV protonix. She otherwise has no complaints this morning. She has been tolerating fluids. She has been passing gas. Objective - Vital Signs/Intake and Output Vital Signs (last 24 hours): Temp Pulse Resp BP Pulse Ox 98.4 F 83 20 149/73 97 07/06/17 08:09 07/06/17 08:33 07/06/17 08:09 07/06/17 08:33 07/06/17 08:09 Intake and Output: 07/06/17 07/06/17 06:59 18:59 Intake Total 1200 Output Total 90 Balance 1110 - Medications Medications: Current Medications Acetaminophen (Tylenol 325mg Tab) 650 mg PO Q6 PRN PRN Reason: Pain, moderate (4-7) Acetaminophen (Tylenol 325mg Tab) 650 mg PO Q4 PRN PRN Reason: Fever >100.4 F Last Admin: 06/27/17 16:35 Dose: 650 mg Amlodipine Besylate (Norvasc) 5 mg PO DAILY [facility] Last Admin: 07/06/17 08:33 Dose: 5 mg Atorvastatin Calcium (Lipitor) 20 mg PO HS [facility] Last Admin: 07/04/17 21:05 Dose: 20 mg Cholecalciferol (Vitamin D) 1,000 intlu PO DAILY [facility] Last Admin: 07/05/17 08:47 Dose: Not Given Cinacalcet (Sensipar) 30 mg PO DAILY [facility] Last Admin: 07/06/17 08:31 Dose: 30 mg Home Med (Tacrolimus [Prograf]) 5 mg PO BID [facility] Aztreonam 1 gm/ Sodium (Chloride) 100 mls @ 100 mls/hr IVPB Q12@0000,1200 BEN PRN Reason: Protocol Last Admin: 07/06/17 00:19 Dose: 100 mls/hr Lactated Ringer's (Lactated Ringer's) 1,000 mls @ 100 mls/hr IV .Q10H [facility] Last Admin: 07/06/17 03:00 Dose: Not Given Ciprofloxacin (Cipro 200mg/100ml D5w) 100 mls @ 100 mls/hr IVPB Q12 [facility] Last Admin: 07/06/17 08:30 Dose: 100 mls/hr Lactic Acid (Lac-Hydrin 12% Lotion (225 G)) 1 applic TOP TID [facility] Last Admin: 07/06/17 08:34 Dose: 1 applic Methylprednisolone (Solu-Medrol) 5 mg IVP DAILY [facility] Last Admin: 07/06/17 08:35 Dose: 5 mg Metoprolol Tartrate (Lopressor) 12.5 mg PO Q12 [facility] Last Admin: 07/06/17 08:32 Dose: 12.5 mg Morphine Sulfate (Morphine) 2 mg IVP Q4 PRN PRN Reason: Pain, moderate (4-7) Last Admin: 07/05/17 06:30 Dose: 2 mg Mycophenolate Mofetil (Cellcept Cap) 250 mg PO BID [facility] Last Admin: 07/06/17 08:31 Dose: 250 mg Ondansetron HCl (Zofran Inj) 4 mg IVP Q6 [facility] Last Admin: 07/06/17 04:33 Dose: 4 mg Oxycodone/Acetaminophen (Percocet 5/325 Mg Tab) 1 tab PO Q6 PRN PRN Reason: Pain, moderate (4-7) Stop: 07/08/17 09:27 Pantoprazole Sodium (Protonix Inj) 40 mg IVP DAILY [facility] Last Admin: 07/06/17 08:34 Dose: 40 mg Saccharomyces Boulardii (Florastor) 250 mg PO BID [facility] Last Admin: 07/06/17 08:32 Dose: 250 mg Tacrolimus (Prograf Cap) 5 mg PO BID [facility] Last Admin: 07/06/17 08:31 Dose: 5 mg Vitamin B Complex/Vit C/Folic Acid (Nephro-Tabby) 1 tab PO DAILY [facility] Last Admin: 07/06/17 08:31 Dose: 1 tab - Labs Labs: 07/06/17 05:30 07/06/17 05:30 PT 13.9 Seconds (9.8-13.1) H 07/04/17 06:00 INR 1.3 (0.9-1.2) H 07/04/17 06:00 APTT 29.8 Seconds (25.6-37.1) 07/04/17 06:00 - Constitutional Appears: No Acute Distress, Chronically Ill - Head Exam Head Exam: NORMAL INSPECTION - Eye Exam Eye Exam: Normal appearance - Respiratory Exam Respiratory Exam: Clear to Ausculation Bilateral, NORMAL BREATHING PATTERN. absent: Rales, Rhonchi - Cardiovascular Exam Cardiovascular Exam: REGULAR RHYTHM, +S1, +S2 - GI/Abdominal Exam GI & Abdominal Exam: Soft, Normal Bowel Sounds. absent: Tenderness Additional comments: Dressing appears C/D/I. Adama draine with serosanguinous drainage noted Slight tenderness on left lower quadrant region on palpation - Extremities Exam Extremities Exam: Full ROM - Neurological Exam Neurological Exam: Alert, Awake, Oriented x3 - Skin Skin Exam: Dry, Intact Assessment and Plan - Assessment and Plan (Free Text) Assessment: 1) Diverticulitis -CT abdomen: 6 cm thick walled collection of fluid and gas adjacent to sigmoid colon. DDX includes giant sigmoid diverticulitis vs. communicating abscess -POD 2 s/p sigmoid colon resection with colorectal anastamosis with Dr. Sanz -cardiology Dr. Heath on consult -ID consult, Dr. Rodriguez on board -continue IV Cipro, IV Aztreonam - Flagyl has been D/C because of nausea -Zofran prn for N/V -Tylenol, Morphine prn for pain control 2) Sepsis, resolved -on admission: WBC 13.2; Tmax 100.5, lactic acid 1.2 -WBC trending down, 11.9 -continue IV Cipro, Aztreonam -PICC line intact to R arm -at present, afebrile and lactate WNL -blood cx final - no growth 3) Hypercalcemia (resloved) -Ca levels down to 8.7 -Continue IV fluids -Cinacalcet 4) Hx of renal transplant -continue Mycophenolate and Prednisone -Dr. Glez on consult 5) Anemia -Hgb 9.4 -continue to monitor 6) Hypertension -Stable -continue Norvasc -Metoprolol added per cardiology, to continue taking 2-3 weeks post-op -monitor BP 7) Hyperlipidemia -continue Atorvastatin 8) Sacral decubitus ulcer, stage 1 -move pt q2h -encouraged patient to move in bed to prevent worsening of pressure ulcer -nutrashield ointment BID 9) Recurrent UTIs -no urinary symptoms at present -UA shows mild increase in urine WBCs, RBCs - Repeat U/A -continue IV abx 10) DVT prophylaxis -SCDs -Heparin 5000 units SC q8 11) Code status -full code
[2017-07-07] MEDS: Multivitamin Vitamin B Complex (Nephro-Vite) Tab PO SCH (08:53)
[2017-07-07] MEDS: Saccharomyces Boulardi 250 mg Cap PO SCH ×2 (08:53→17:43)
[2017-07-07] MEDS: MethylPREDNISolone 40 mg Vial IVP SCH (08:54)
--- NOTE | 2017-07-07 09:53 | CP.PCM.PN ---
Subjective - Date & Time of Evaluation Date of Evaluation: 07/07/17 Time of Evaluation: 09:00 - Subjective Subjective: General Surgery Progress Note For Dr. Bakari Webb, PGY-1 Pt S & E at bedside. Pt reports pain well controlled overnight, admits to flatus. Minimal OOBTC. Denies N & V, F & C, BM. States she is using IS. Drain with serosanginous output , approx 20cc. Objective - Vital Signs/Intake and Output Vital Signs (last 24 hours): Temp Pulse Resp BP Pulse Ox 97.7 F 80 20 134/69 98 07/07/17 08:26 07/07/17 08:26 07/07/17 08:26 07/07/17 08:26 07/07/17 08:26 Intake and Output: 07/07/17 07/07/17 06:59 18:59 Intake Total 100 Output Total 435 Balance -335 - Medications Medications: Current Medications Acetaminophen (Tylenol 325mg Tab) 650 mg PO Q6 PRN PRN Reason: Pain, moderate (4-7) Acetaminophen (Tylenol 325mg Tab) 650 mg PO Q4 PRN PRN Reason: Fever >100.4 F Last Admin: 06/27/17 16:35 Dose: 650 mg Amlodipine Besylate (Norvasc) 5 mg PO DAILY [facility] Last Admin: 07/07/17 08:53 Dose: 5 mg Atorvastatin Calcium (Lipitor) 20 mg PO HS [facility] Last Admin: 07/04/17 21:05 Dose: 20 mg Cholecalciferol (Vitamin D) 1,000 intlu PO DAILY [facility] Last Admin: 07/05/17 08:47 Dose: Not Given Cinacalcet (Sensipar) 30 mg PO DAILY [facility] Last Admin: 07/07/17 08:54 Dose: 30 mg Heparin Sodium (Porcine) (Heparin) 5,000 units SC Q12 [facility] PRN Reason: Protocol Last Admin: 07/07/17 08:54 Dose: 5,000 units Home Med (Tacrolimus [Prograf]) 5 mg PO BID [facility] Lactic Acid (Lac-Hydrin 12% Lotion (225 G)) 1 applic TOP TID [facility] Last Admin: 07/07/17 09:09 Dose: 1 applic Methylprednisolone (Solu-Medrol) 5 mg IVP DAILY [facility] Last Admin: 07/07/17 08:54 Dose: 5 mg Metoprolol Tartrate (Lopressor) 12.5 mg PO Q12 [facility] Last Admin: 07/07/17 08:53 Dose: 12.5 mg Morphine Sulfate (Morphine) 2 mg IVP Q4 PRN PRN Reason: Pain, moderate (4-7) Last Admin: 07/05/17 06:30 Dose: 2 mg Mycophenolate Mofetil (Cellcept Cap) 250 mg PO BID [facility] Last Admin: 07/07/17 08:54 Dose: 250 mg Ondansetron HCl (Zofran Inj) 4 mg IVP Q6 [facility] Last Admin: 07/07/17 04:30 Dose: Not Given Oxycodone/Acetaminophen (Percocet 5/325 Mg Tab) 1 tab PO Q6 PRN PRN Reason: Pain, moderate (4-7) Stop: 07/08/17 09:27 Pantoprazole Sodium (Protonix Inj) 40 mg IVP DAILY [facility] Last Admin: 07/07/17 08:54 Dose: 40 mg Saccharomyces Boulardii (Florastor) 250 mg PO BID [facility] Last Admin: 07/07/17 08:53 Dose: 250 mg Tacrolimus (Prograf Cap) 5 mg PO BID [facility] Last Admin: 07/07/17 08:52 Dose: 5 mg Vitamin B Complex/Vit C/Folic Acid (Nephro-Tabby) 1 tab PO DAILY [facility] Last Admin: 07/07/17 08:53 Dose: 1 tab - Labs Labs: 07/06/17 05:30 07/06/17 05:30 PT 13.9 Seconds (9.8-13.1) H 07/04/17 06:00 INR 1.3 (0.9-1.2) H 07/04/17 06:00 APTT 29.8 Seconds (25.6-37.1) 07/04/17 06:00 - Constitutional Appears: Non-toxic, No Acute Distress - Head Exam Head Exam: ATRAUMATIC, NORMAL INSPECTION, NORMOCEPHALIC - Eye Exam Eye Exam: EOMI, Normal appearance - ENT Exam ENT Exam: Mucous Membranes Moist, Normal Exam - Neck Exam Neck Exam: Full ROM, Normal Inspection - Respiratory Exam Respiratory Exam: NORMAL BREATHING PATTERN - Cardiovascular Exam Cardiovascular Exam: REGULAR RHYTHM - GI/Abdominal Exam GI & Abdominal Exam: Soft, Tenderness (over incision site, incision site with dressing in place - scant serous drainage at distal aspect/dried) Additional comments: Drain in place with mostly serous, slightly sanguinous output. - Extremities Exam Extremities Exam: absent: Pedal Edema, Tenderness - Neurological Exam Neurological Exam: Alert, Awake, CN II-XII Intact, Oriented x3 - Psychiatric Exam Psychiatric exam: Normal Affect, Normal Mood - Skin Skin Exam: Dry, Intact, Normal Color, Warm Assessment and Plan - Assessment and Plan (Free Text) Assessment: 62F POD#2 s/p sigmoidectomy with primary handsewn colorectal anastamosis and doing well. Plan: Cont to monitor drain output Monitor for return of bowel function Cont pain control OOBTC PT Encourage IS DW attending Tracey, PGY-1
[2017-07-07 10:09] LABS: RBC URINE 1 /hpf (0-3); URINE BILIRUBIN NEGATIVE (NEGATIVE); URINE BLOOD NEGATIVE (NEGATIVE); URINE COLOR YELLOW (YELLOW); URINE GLUCOSE (UA) NEG (Normal); URINE KETONE TRACE mg/dL (NEGATIVE); URINE LEUKOCYTE ESTERASE NEG Leu/uL (Negative); URINE PROTEIN NEGATIVE (NEGATIVE); URINE UROBILINOGEN 0.2-1.0 mg/dL (0.2-1.0); WBC URINE 1 /hpf (0-5)
--- NOTE | 2017-07-07 10:56 | CP.PCM.PN ---
Subjective - Date & Time of Evaluation Date of Evaluation: 07/07/17 Time of Evaluation: 10:54 - Subjective Subjective: Seen and examined at bedside CARLOS. States she slept well overnight. Denies any diarrhea, nausea, or vomiting. Continuing with incentive spirometry. otherwise has no complaints this morning. She has been tolerating fluids. She has been passing gas. Objective - Vital Signs/Intake and Output Vital Signs (last 24 hours): Temp Pulse Resp BP Pulse Ox 97.7 F 80 20 134/69 98 07/07/17 08:26 07/07/17 08:26 07/07/17 08:26 07/07/17 08:26 07/07/17 08:26 Intake and Output: 07/07/17 07/07/17 06:59 18:59 Intake Total 100 Output Total 435 Balance -335 - Medications Medications: Current Medications Acetaminophen (Tylenol 325mg Tab) 650 mg PO Q6 PRN PRN Reason: Pain, moderate (4-7) Acetaminophen (Tylenol 325mg Tab) 650 mg PO Q4 PRN PRN Reason: Fever >100.4 F Last Admin: 06/27/17 16:35 Dose: 650 mg Amlodipine Besylate (Norvasc) 5 mg PO DAILY [facility] Last Admin: 07/07/17 08:53 Dose: 5 mg Atorvastatin Calcium (Lipitor) 20 mg PO HS [facility] Last Admin: 07/04/17 21:05 Dose: 20 mg Cholecalciferol (Vitamin D) 1,000 intlu PO DAILY [facility] Last Admin: 07/05/17 08:47 Dose: Not Given Cinacalcet (Sensipar) 30 mg PO DAILY [facility] Last Admin: 07/07/17 08:54 Dose: 30 mg Heparin Sodium (Porcine) (Heparin) 5,000 units SC Q12 [facility] PRN Reason: Protocol Last Admin: 07/07/17 08:54 Dose: 5,000 units Home Med (Tacrolimus [Prograf]) 5 mg PO BID [facility] Lactic Acid (Lac-Hydrin 12% Lotion (225 G)) 1 applic TOP TID [facility] Last Admin: 07/07/17 09:09 Dose: 1 applic Methylprednisolone (Solu-Medrol) 5 mg IVP DAILY [facility] Last Admin: 07/07/17 08:54 Dose: 5 mg Metoprolol Tartrate (Lopressor) 12.5 mg PO Q12 [facility] Last Admin: 07/07/17 08:53 Dose: 12.5 mg Morphine Sulfate (Morphine) 2 mg IVP Q4 PRN PRN Reason: Pain, moderate (4-7) Last Admin: 07/05/17 06:30 Dose: 2 mg Mycophenolate Mofetil (Cellcept Cap) 250 mg PO BID [facility] Last Admin: 07/07/17 08:54 Dose: 250 mg Ondansetron HCl (Zofran Inj) 4 mg IVP Q6 [facility] Last Admin: 07/07/17 10:10 Dose: Not Given Oxycodone/Acetaminophen (Percocet 5/325 Mg Tab) 1 tab PO Q6 PRN PRN Reason: Pain, moderate (4-7) Stop: 07/08/17 09:27 Pantoprazole Sodium (Protonix Inj) 40 mg IVP DAILY [facility] Last Admin: 07/07/17 08:54 Dose: 40 mg Saccharomyces Boulardii (Florastor) 250 mg PO BID [facility] Last Admin: 07/07/17 08:53 Dose: 250 mg Tacrolimus (Prograf Cap) 5 mg PO BID [facility] Last Admin: 07/07/17 08:52 Dose: 5 mg Vitamin B Complex/Vit C/Folic Acid (Nephro-Tabby) 1 tab PO DAILY [facility] Last Admin: 07/07/17 08:53 Dose: 1 tab - Labs Labs: 07/06/17 05:30 07/06/17 05:30 PT 13.9 Seconds (9.8-13.1) H 07/04/17 06:00 INR 1.3 (0.9-1.2) H 07/04/17 06:00 APTT 29.8 Seconds (25.6-37.1) 07/04/17 06:00 - Constitutional Appears: No Acute Distress, Cachectic, Chronically Ill - Head Exam Head Exam: ATRAUMATIC - Eye Exam Eye Exam: EOMI Pupil Exam: PERRL - ENT Exam ENT Exam: Mucous Membranes Moist - Neck Exam Neck Exam: Full ROM - Respiratory Exam Respiratory Exam: Clear to Ausculation Bilateral - Cardiovascular Exam Cardiovascular Exam: +S1, +S2 - GI/Abdominal Exam GI & Abdominal Exam: Soft, Normal Bowel Sounds. absent: Rebound Additional comments: some tenderness around incision, incision c/d/i ROLAN drain in place on left, serosangiunous drainage approx 20 ml - Extremities Exam Extremities Exam: Full ROM - Neurological Exam Neurological Exam: Alert, Awake, Oriented x3 - Skin Skin Exam: Dry, Warm Assessment and Plan - Assessment and Plan (Free Text) Plan: 1) Diverticulitis -CT abdomen: 6 cm thick walled collection of fluid and gas adjacent to sigmoid colon. DDX includes giant sigmoid diverticulitis vs. communicating abscess -POD 2 s/p sigmoid colon resection with colorectal anastamosis with Dr. Sanz -cardiology Dr. Heath on consult -ID consult, Dr. Rodriguez on board: s/p IV Cipro, IV Aztreonam, Flagyl previously D/C because of nausea -Zofran prn for N/V -Tylenol, Morphine prn for pain control 2) Sepsis, resolved -on admission: WBC 13.2; Tmax 100.5, lactic acid 1.2 -WBC trending down, 11.9 -continue IV Cipro, Aztreonam -PICC line intact to R arm -at present, afebrile and lactate WNL -blood cx final - no growth 3) Hypercalcemia (resloved) -Ca levels down to 8.7 -Continue IV fluids -Cinacalcet 4) Hx of renal transplant -continue Mycophenolate and Prednisone -Dr. Glez on consult 5) Anemia -Hgb 9.4 -continue to monitor 6) Hypertension -Stable -continue Norvasc -Metoprolol added per cardiology, to continue taking 2-3 weeks post-op -monitor BP 7) Hyperlipidemia -continue Atorvastatin 8) Sacral decubitus ulcer, stage 1 -move pt q2h -encouraged patient to move in bed to prevent worsening of pressure ulcer -nutrashield ointment BID 9) Recurrent UTIs -no urinary symptoms at present 10) DVT prophylaxis -SCDs -Heparin 5000 units SC q8 11) Code status -full code
--- NOTE | 2017-07-07 15:55 | CP.PCM.PN ---
Subjective - Date & Time of Evaluation Date of Evaluation: 07/07/17 Time of Evaluation: 15:54 Objective - Vital Signs/Intake and Output Vital Signs (last 24 hours): Temp Pulse Resp BP Pulse Ox 97.7 F 80 20 134/69 98 07/07/17 08:26 07/07/17 08:26 07/07/17 08:26 07/07/17 08:26 07/07/17 08:26 Intake and Output: 07/07/17 07/07/17 06:59 18:59 Intake Total 100 200 Output Total 435 Balance -335 200 - Medications Medications: Current Medications Acetaminophen (Tylenol 325mg Tab) 650 mg PO Q6 PRN PRN Reason: Pain, moderate (4-7) Acetaminophen (Tylenol 325mg Tab) 650 mg PO Q4 PRN PRN Reason: Fever >100.4 F Last Admin: 06/27/17 16:35 Dose: 650 mg Amlodipine Besylate (Norvasc) 5 mg PO DAILY [facility] Last Admin: 07/07/17 08:53 Dose: 5 mg Atorvastatin Calcium (Lipitor) 20 mg PO HS [facility] Last Admin: 07/04/17 21:05 Dose: 20 mg Cholecalciferol (Vitamin D) 1,000 intlu PO DAILY [facility] Last Admin: 07/05/17 08:47 Dose: Not Given Cinacalcet (Sensipar) 30 mg PO DAILY [facility] Last Admin: 07/07/17 08:54 Dose: 30 mg Heparin Sodium (Porcine) (Heparin) 5,000 units SC Q12 [facility] PRN Reason: Protocol Last Admin: 07/07/17 08:54 Dose: 5,000 units Home Med (Tacrolimus [Prograf]) 5 mg PO BID [facility] Lactic Acid (Lac-Hydrin 12% Lotion (225 G)) 1 applic TOP TID [facility] Last Admin: 07/07/17 13:53 Dose: 1 applic Methylprednisolone (Solu-Medrol) 5 mg IVP DAILY [facility] Last Admin: 07/07/17 08:54 Dose: 5 mg Metoprolol Tartrate (Lopressor) 12.5 mg PO Q12 [facility] Last Admin: 07/07/17 08:53 Dose: 12.5 mg Morphine Sulfate (Morphine) 2 mg IVP Q4 PRN PRN Reason: Pain, moderate (4-7) Last Admin: 07/05/17 06:30 Dose: 2 mg Mycophenolate Mofetil (Cellcept Cap) 250 mg PO BID [facility] Last Admin: 07/07/17 08:54 Dose: 250 mg Ondansetron HCl (Zofran Inj) 4 mg IVP Q6 [facility] Last Admin: 07/07/17 10:10 Dose: Not Given Oxycodone/Acetaminophen (Percocet 5/325 Mg Tab) 1 tab PO Q6 PRN PRN Reason: Pain, moderate (4-7) Stop: 07/08/17 09:27 Last Admin: 07/07/17 13:51 Dose: 1 tab Pantoprazole Sodium (Protonix Inj) 40 mg IVP DAILY [facility] Last Admin: 07/07/17 08:54 Dose: 40 mg Saccharomyces Boulardii (Florastor) 250 mg PO BID [facility] Last Admin: 07/07/17 08:53 Dose: 250 mg Tacrolimus (Prograf Cap) 5 mg PO BID [facility] Last Admin: 07/07/17 08:52 Dose: 5 mg Vitamin B Complex/Vit C/Folic Acid (Nephro-Tabby) 1 tab PO DAILY [facility] Last Admin: 07/07/17 08:53 Dose: 1 tab - Labs Labs: 07/06/17 05:30 07/06/17 05:30 PT 13.9 Seconds (9.8-13.1) H 07/04/17 06:00 INR 1.3 (0.9-1.2) H 07/04/17 06:00 APTT 29.8 Seconds (25.6-37.1) 07/04/17 06:00 Assessment and Plan (1) Pre-operative cardiovascular examination Status: Acute (2) Hx of essential hypertension Status: Acute (3) Diverticulitis Status: Acute (4) Diverticulosis Status: Acute (5) History of kidney transplant Status: Acute (6) Perforated diverticulum of large intestine Status: Acute (7) Anemia Status: Chronic - Assessment and Plan (Free Text) Plan: DOING WELL BP ELEVATION MAY BE DUE TO PAIN BP OF 140 OR LESS SYS IS ACCEPTABLE. WILL NOT TITRATE BP MEDS. MONITOR LYTES
--- NOTE | 2017-07-07 22:55 | CP.PCM.PN ---
Subjective - Date & Time of Evaluation Date of Evaluation: 07/07/17 Time of Evaluation: 16:00 - Subjective Subjective: SEEN ON RENAL F/U ALL PREVIOUS EMR RE VIEWED S/P SIGMOIDECTOMY FEELS [place] R.. APPETITE LITTLE BETTER RENAL FUNCTION GOOD Objective - Vital Signs/Intake and Output Vital Signs (last 24 hours): Temp Pulse Resp BP Pulse Ox 97.8 F 72 20 126/68 97 07/07/17 15:59 07/07/17 21:41 07/07/17 15:59 07/07/17 21:41 07/07/17 15:59 Intake and Output: 07/07/17 07/08/17 18:59 06:59 Intake Total 200 Output Total 40 Balance 160 - Medications Medications: Current Medications Acetaminophen (Tylenol 325mg Tab) 650 mg PO Q6 PRN PRN Reason: Pain, moderate (4-7) Acetaminophen (Tylenol 325mg Tab) 650 mg PO Q4 PRN PRN Reason: Fever >100.4 F Last Admin: 06/27/17 16:35 Dose: 650 mg Amlodipine Besylate (Norvasc) 5 mg PO DAILY [facility] Last Admin: 07/07/17 08:53 Dose: 5 mg Atorvastatin Calcium (Lipitor) 20 mg PO HS [facility] Last Admin: 07/04/17 21:05 Dose: 20 mg Cholecalciferol (Vitamin D) 1,000 intlu PO DAILY [facility] Last Admin: 07/05/17 08:47 Dose: Not Given Cinacalcet (Sensipar) 30 mg PO DAILY [facility] Last Admin: 07/07/17 08:54 Dose: 30 mg Heparin Sodium (Porcine) (Heparin) 5,000 units SC Q12 [facility] PRN Reason: Protocol Last Admin: 07/07/17 21:41 Dose: 5,000 units Home Med (Tacrolimus [Prograf]) 5 mg PO BID [facility] Lactic Acid (Lac-Hydrin 12% Lotion (225 G)) 1 applic TOP TID [facility] Last Admin: 07/07/17 17:51 Dose: 1 applic Methylprednisolone (Solu-Medrol) 5 mg IVP DAILY [facility] Last Admin: 07/07/17 08:54 Dose: 5 mg Metoprolol Tartrate (Lopressor) 12.5 mg PO Q12 [facility] Last Admin: 07/07/17 21:41 Dose: 12.5 mg Morphine Sulfate (Morphine) 2 mg IVP Q4 PRN PRN Reason: Pain, moderate (4-7) Last Admin: 07/05/17 06:30 Dose: 2 mg Mycophenolate Mofetil (Cellcept Cap) 250 mg PO BID [facility] Last Admin: 07/07/17 17:44 Dose: 250 mg Ondansetron HCl (Zofran Inj) 4 mg IVP Q6 [facility] Last Admin: 07/07/17 21:52 Dose: Not Given Oxycodone/Acetaminophen (Percocet 5/325 Mg Tab) 1 tab PO Q6 PRN PRN Reason: Pain, moderate (4-7) Stop: 07/08/17 09:27 Last Admin: 07/07/17 13:51 Dose: 1 tab Pantoprazole Sodium (Protonix Inj) 40 mg IVP DAILY [facility] Last Admin: 07/07/17 08:54 Dose: 40 mg Saccharomyces Boulardii (Florastor) 250 mg PO BID [facility] Last Admin: 07/07/17 17:43 Dose: 250 mg Tacrolimus (Prograf Cap) 5 mg PO BID [facility] Last Admin: 07/07/17 17:42 Dose: 5 mg Vitamin B Complex/Vit C/Folic Acid (Nephro-Tabby) 1 tab PO DAILY [facility] Last Admin: 07/07/17 08:53 Dose: 1 tab - Labs Labs: 07/06/17 05:30 07/06/17 05:30 PT 13.9 Seconds (9.8-13.1) H 07/04/17 06:00 INR 1.3 (0.9-1.2) H 07/04/17 06:00 APTT 29.8 Seconds (25.6-37.1) 07/04/17 06:00 Assessment and Plan - Assessment and Plan (Free Text) Assessment: S/P RENAL TRX .. RENAL FUNCTION GOOD S/P HYPERCALCEMIA .. CA BETTER S/P SIGMOIDESCOMY .. FEELS IMPROVED P : C/O CURRENT CARE C/O PRESENT MANAGEMENT
[2017-07-08 06:22] LABS: BASO % 0.3 % (0.0-2.0); EOS % 0.5 % (0.0-4.0); LYMPH # 2.1 K/uL (1.0-4.3); LYMPH % 25.1 % (20.0-40.0); MEAN CELL VOLUME 86.1 fl (81.0-99.0); MEAN CORPUSCULAR HEMOGLOBIN 28.6 pg (27.0-31.0); MEAN CORPUSCULAR HGB CONC 33.2 g/dL (33.0-37.0); MEAN PLATELET VOLUME 7.6 fl (7.2-11.7); MONO # 0.5 K/uL (0.0-0.8); NEUT # 5.7 K/uL (1.8-7.0); NEUT % 68.1 % (50.0-75.0); RED CELL DISTRIBUTION WIDTH 15.6 % (11.5-14.5); WHITE BLOOD COUNT 8.3 K/uL (4.8-10.8)
[2017-07-08 06:40] LABS: ALB/GLOB RATIO 0.8 (1.0-2.1); ALKALINE PHOSPHATASE 116 U/L (38-126); ALT/SGPT 29 U/L (9-52); AST/SGOT 26 U/L (14-36); BILIRUBIN,TOTAL 0.2 mg/dl (0.2-1.3); BLOOD UREA NITROGEN 19 mg/dl (7-17); CARBON DIOXIDE 21 mmol/L (22-30); CHLORIDE 108 mmol/L (98-107); GFR AFRICAN-AMERICAN > 60; GLUCOSE,RANDOM 95 mg/dL (65-105); POTASSIUM 4.3 MMOL/L (3.6-5.0); SODIUM 134 mmol/l (132-148); TOTAL PROTEIN 4.9 G/DL (6.3-8.2)
--- NOTE | 2017-07-08 09:03 | CP.PCM.PN ---
Subjective - Date & Time of Evaluation Date of Evaluation: 07/08/17 Time of Evaluation: 09:02 - Subjective Subjective: 62 y/o female seen at bedside this morning, resting comfortably in bed. Pt denies any acute events overnight. Pt is tolerating PO diet without any issues. Denies F/C/N/V/CP/SOB. Denies diarrhea or constipation. Pt says she has not had a BM since her surgery. Admits to passing flatus and urinating as normal. Admits to mild tenderness at surgical incision site and says her dressing was just changed by the surgical team. Pt says she does not want to take any meds that are not absolutely necessary for her health. Objective - Vital Signs/Intake and Output Vital Signs (last 24 hours): Temp Pulse Resp BP Pulse Ox 97.2 F L 80 20 120/74 99 07/08/17 07:40 07/08/17 07:40 07/08/17 07:40 07/08/17 07:40 07/08/17 07:40 Intake and Output: 07/08/17 07/08/17 06:59 18:59 Intake Total 200 Output Total 545 Balance -345 - Medications Medications: Current Medications Acetaminophen (Tylenol 325mg Tab) 650 mg PO Q6 PRN PRN Reason: Pain, moderate (4-7) Acetaminophen (Tylenol 325mg Tab) 650 mg PO Q4 PRN PRN Reason: Fever >100.4 F Last Admin: 06/27/17 16:35 Dose: 650 mg Amlodipine Besylate (Norvasc) 5 mg PO DAILY [facility] Last Admin: 07/07/17 08:53 Dose: 5 mg Atorvastatin Calcium (Lipitor) 20 mg PO HS [facility] Last Admin: 07/04/17 21:05 Dose: 20 mg Cholecalciferol (Vitamin D) 1,000 intlu PO DAILY [facility] Last Admin: 07/05/17 08:47 Dose: Not Given Cinacalcet (Sensipar) 30 mg PO DAILY [facility] Last Admin: 07/07/17 08:54 Dose: 30 mg Docusate Sodium (Colace) 100 mg PO DAILY [facility] Heparin Sodium (Porcine) (Heparin) 5,000 units SC Q12 [facility] PRN Reason: Protocol Last Admin: 07/07/17 21:41 Dose: 5,000 units Home Med (Tacrolimus [Prograf]) 5 mg PO BID [facility] Lactic Acid (Lac-Hydrin 12% Lotion (225 G)) 1 applic TOP TID [facility] Last Admin: 07/07/17 17:51 Dose: 1 applic Methylprednisolone (Solu-Medrol) 5 mg IVP DAILY [facility] Last Admin: 07/07/17 08:54 Dose: 5 mg Metoprolol Tartrate (Lopressor) 12.5 mg PO Q12 [facility] Last Admin: 07/07/17 21:41 Dose: 12.5 mg Morphine Sulfate (Morphine) 2 mg IVP Q4 PRN PRN Reason: Pain, moderate (4-7) Last Admin: 07/05/17 06:30 Dose: 2 mg Mycophenolate Mofetil (Cellcept Cap) 250 mg PO BID [facility] Last Admin: 07/07/17 17:44 Dose: 250 mg Ondansetron HCl (Zofran Inj) 4 mg IVP Q6 [facility] Last Admin: 07/08/17 04:00 Dose: Not Given Oxycodone/Acetaminophen (Percocet 5/325 Mg Tab) 1 tab PO Q6 PRN PRN Reason: Pain, moderate (4-7) Stop: 07/08/17 09:27 Last Admin: 07/07/17 13:51 Dose: 1 tab Pantoprazole Sodium (Protonix Inj) 40 mg IVP DAILY [facility] Last Admin: 07/07/17 08:54 Dose: 40 mg Saccharomyces Boulardii (Florastor) 250 mg PO BID [facility] Last Admin: 07/07/17 17:43 Dose: 250 mg Tacrolimus (Prograf Cap) 5 mg PO BID [facility] Last Admin: 07/07/17 17:42 Dose: 5 mg Vitamin B Complex/Vit C/Folic Acid (Nephro-Tabby) 1 tab PO DAILY [facility] Last Admin: 07/07/17 08:53 Dose: 1 tab - Labs Labs: 07/08/17 06:00 07/08/17 06:00 PT 13.9 Seconds (9.8-13.1) H 07/04/17 06:00 INR 1.3 (0.9-1.2) H 07/04/17 06:00 APTT 29.8 Seconds (25.6-37.1) 07/04/17 06:00 - Constitutional Appears: Non-toxic, Older Than Stated Age, Cachectic - Head Exam Head Exam: ATRAUMATIC, NORMOCEPHALIC - Eye Exam Eye Exam: Normal appearance Pupil Exam: PERRL - ENT Exam ENT Exam: Mucous Membranes Moist, Normal Exam - Neck Exam Neck Exam: Full ROM, Normal Inspection. absent: Tenderness - Respiratory Exam Respiratory Exam: Clear to Ausculation Bilateral, NORMAL BREATHING PATTERN. absent: Rhonchi, Wheezes, Respiratory Distress - Cardiovascular Exam Cardiovascular Exam: REGULAR RHYTHM, +S1, +S2. absent: JVD - GI/Abdominal Exam GI & Abdominal Exam: Soft, Tenderness, Normal Bowel Sounds. absent: Rebound Additional comments: mild LLQ tenderness noted at surgical incision site surgical site dressing C/D/I with no strikethrough ROLAN drain in place, serosanguinous drainage approx. 50cc Assessment and Plan - Assessment and Plan (Free Text) Assessment: 1) Diverticulitis -CT abdomen: 6 cm thick walled collection of fluid and gas adjacent to sigmoid colon. DDX includes giant sigmoid diverticulitis vs. communicating abscess -POD#4 s/p sigmoid colon resection with colorectal anastamosis with Dr. Sanz -cardiology Dr. Heath on consult -ID consult, Dr. Rodriguez on board: s/p antibiotic regimen of IV Cipro, IV Aztreonam --Flagyl previously D/C because of nausea -Tylenol, Morphine prn for pain control 2) Sepsis, resolved -on admission: WBC 13.2; Tmax 100.5, lactic acid 1.2 -WBC trending down, 8.3 at present -antibiotic course completed -PICC line intact to R arm -at present, afebrile and lactate WNL -blood cx final - no growth 3) Hypercalcemia (resolved) -Ca levels down to 8.7 -Continue IV fluids -Cinacalcet 4) Hx of renal transplant -continue Mycophenolate and Prednisone -Dr. Glez on consult 5) Anemia -Hgb 9.6 -continue to monitor 6) Hypertension -Stable -continue Norvasc -Metoprolol added per cardiology, to continue taking 2-3 weeks post-op -monitor BP 7) Hyperlipidemia -continue Atorvastatin 8) Sacral decubitus ulcer, stage 1 -move pt q2h -encouraged patient to move in bed to prevent worsening of pressure ulcer -nutrashield ointment BID 9) Recurrent UTIs -no urinary symptoms at present 10) DVT prophylaxis -SCDs -Heparin 5000 units SC q8 11) Code status -full code
--- NOTE | 2017-07-08 09:39 | CP.PCM.PN ---
Subjective - Date & Time of Evaluation Date of Evaluation: 07/08/17 Time of Evaluation: 09:37 - Subjective Subjective: General Surgery Progress Note for Dr. Sanz This patient was seen and examined this AM at bedside no acute events reported overnight. She reports that she has been out of bed to chair however she has not ambulated. She reports she is tolerating diet however she denies BM or flatus. She denies chest pain, SOB, nause vomiting and reports a decrease in her post operative pain. Drain output 85cc serosang. Objective - Vital Signs/Intake and Output Vital Signs (last 24 hours): Temp Pulse Resp BP Pulse Ox 97.2 F L 80 20 120/74 99 07/08/17 07:40 07/08/17 07:40 07/08/17 07:40 07/08/17 07:40 07/08/17 07:40 Intake and Output: 07/08/17 07/08/17 06:59 18:59 Intake Total 200 Output Total 545 Balance -345 - Medications Medications: Current Medications Acetaminophen (Tylenol 325mg Tab) 650 mg PO Q6 PRN PRN Reason: Pain, moderate (4-7) Acetaminophen (Tylenol 325mg Tab) 650 mg PO Q4 PRN PRN Reason: Fever >100.4 F Last Admin: 06/27/17 16:35 Dose: 650 mg Amlodipine Besylate (Norvasc) 5 mg PO DAILY [facility] Last Admin: 07/07/17 08:53 Dose: 5 mg Atorvastatin Calcium (Lipitor) 20 mg PO HS [facility] Last Admin: 07/04/17 21:05 Dose: 20 mg Cholecalciferol (Vitamin D) 1,000 intlu PO DAILY [facility] Last Admin: 07/05/17 08:47 Dose: Not Given Cinacalcet (Sensipar) 30 mg PO DAILY [facility] Last Admin: 07/07/17 08:54 Dose: 30 mg Docusate Sodium (Colace) 100 mg PO DAILY [facility] Heparin Sodium (Porcine) (Heparin) 5,000 units SC Q12 [facility] PRN Reason: Protocol Last Admin: 07/07/17 21:41 Dose: 5,000 units Home Med (Tacrolimus [Prograf]) 5 mg PO BID [facility] Lactic Acid (Lac-Hydrin 12% Lotion (225 G)) 1 applic TOP TID [facility] Last Admin: 07/07/17 17:51 Dose: 1 applic Methylprednisolone (Solu-Medrol) 5 mg IVP DAILY [facility] Last Admin: 07/07/17 08:54 Dose: 5 mg Metoprolol Tartrate (Lopressor) 12.5 mg PO Q12 [facility] Last Admin: 07/07/17 21:41 Dose: 12.5 mg Morphine Sulfate (Morphine) 2 mg IVP Q4 PRN PRN Reason: Pain, moderate (4-7) Last Admin: 07/05/17 06:30 Dose: 2 mg Mycophenolate Mofetil (Cellcept Cap) 250 mg PO BID [facility] Last Admin: 07/07/17 17:44 Dose: 250 mg Ondansetron HCl (Zofran Inj) 4 mg IVP Q6 [facility] Last Admin: 07/08/17 04:00 Dose: Not Given Pantoprazole Sodium (Protonix Inj) 40 mg IVP DAILY [facility] Last Admin: 07/07/17 08:54 Dose: 40 mg Saccharomyces Boulardii (Florastor) 250 mg PO BID [facility] Last Admin: 07/07/17 17:43 Dose: 250 mg Tacrolimus (Prograf Cap) 5 mg PO BID [facility] Last Admin: 07/07/17 17:42 Dose: 5 mg Vitamin B Complex/Vit C/Folic Acid (Nephro-Tabby) 1 tab PO DAILY [facility] Last Admin: 07/07/17 08:53 Dose: 1 tab - Labs Labs: 07/08/17 06:00 07/08/17 06:00 PT 13.9 Seconds (9.8-13.1) H 07/04/17 06:00 INR 1.3 (0.9-1.2) H 07/04/17 06:00 APTT 29.8 Seconds (25.6-37.1) 07/04/17 06:00 - Constitutional Appears: Non-toxic, No Acute Distress, Cachectic - Head Exam Head Exam: ATRAUMATIC, NORMOCEPHALIC - Eye Exam Eye Exam: EOMI, Normal appearance - ENT Exam ENT Exam: Mucous Membranes Moist - Respiratory Exam Respiratory Exam: NORMAL BREATHING PATTERN - Cardiovascular Exam Cardiovascular Exam: REGULAR RHYTHM - GI/Abdominal Exam GI & Abdominal Exam: Soft. absent: Distended, Firm, Guarding, Rigid, Tenderness Additional comments: Incision well approximated non erythematous rex in place with small amount of sanguinous output. - Extremities Exam Additional comments: Mild proximal upper extremity edema - Neurological Exam Neurological Exam: Alert, Awake - Psychiatric Exam Psychiatric exam: Normal Affect, Normal Mood - Skin Skin Exam: Dry, Intact Assessment and Plan - Assessment and Plan (Free Text) Assessment: 62F POD# 3 s/p sigmoid resection with primary anastamosis and doing well Vital Signs Stable Magnesium repleted Regular Diet Colace Monitor bowel function Ambulate Monitor drain output D/W Dr. Yvon Coates PGY2
[2017-07-08] MEDS: Multivitamin Vitamin B Complex (Nephro-Vite) Tab PO SCH (09:43)
[2017-07-08] MEDS: Saccharomyces Boulardi 250 mg Cap PO SCH ×3 (09:44→16:51)
[2017-07-08] MEDS: MethylPREDNISolone 40 mg Vial IVP SCH (10:21)
--- NOTE | 2017-07-08 18:01 | CP.PCM.PN ---
Subjective - Date & Time of Evaluation Date of Evaluation: 07/08/17 Time of Evaluation: 15:00 - Subjective Subjective: SEEN ON RENAL F/U S/P SIGMIODECTOMY FEELS IMPROVED APETTITE BETTER RENAL FUNCTION GOOD Mg is low .. was given supplement Objective - Vital Signs/Intake and Output Vital Signs (last 24 hours): Temp Pulse Resp BP Pulse Ox 98.6 F 77 20 136/76 96 07/08/17 17:03 07/08/17 17:03 07/08/17 17:03 07/08/17 17:03 07/08/17 17:03 Intake and Output: 07/08/17 07/08/17 06:59 18:59 Intake Total 200 Output Total 545 45 Balance -345 -45 - Medications Medications: Current Medications Acetaminophen (Tylenol 325mg Tab) 650 mg PO Q6 PRN PRN Reason: Pain, moderate (4-7) Acetaminophen (Tylenol 325mg Tab) 650 mg PO Q4 PRN PRN Reason: Fever >100.4 F Last Admin: 06/27/17 16:35 Dose: 650 mg Amlodipine Besylate (Norvasc) 5 mg PO DAILY [facility] Last Admin: 07/08/17 09:46 Dose: 5 mg Atorvastatin Calcium (Lipitor) 20 mg PO HS [facility] Last Admin: 07/04/17 21:05 Dose: 20 mg Cholecalciferol (Vitamin D) 1,000 intlu PO DAILY [facility] Last Admin: 07/05/17 08:47 Dose: Not Given Cinacalcet (Sensipar) 30 mg PO DAILY [facility] Last Admin: 07/08/17 09:43 Dose: 30 mg Heparin Sodium (Porcine) (Heparin) 5,000 units SC Q12 [facility] PRN Reason: Protocol Last Admin: 07/08/17 10:01 Dose: 5,000 units Home Med (Tacrolimus [Prograf]) 5 mg PO BID [facility] Lactic Acid (Lac-Hydrin 12% Lotion (225 G)) 1 applic TOP TID [facility] Last Admin: 07/08/17 16:51 Dose: 1 applic Magnesium Oxide (Mag-Ox) 800 mg PO DAILY [facility] Methylprednisolone (Solu-Medrol) 5 mg IVP DAILY [facility] Last Admin: 07/08/17 10:21 Dose: 5 mg Metoprolol Tartrate (Lopressor) 12.5 mg PO Q12 [facility] Last Admin: 07/08/17 09:45 Dose: 12.5 mg Morphine Sulfate (Morphine) 2 mg IVP Q4 PRN PRN Reason: Pain, moderate (4-7) Last Admin: 07/05/17 06:30 Dose: 2 mg Mycophenolate Mofetil (Cellcept Cap) 250 mg PO BID [facility] Last Admin: 07/08/17 16:50 Dose: 250 mg Pantoprazole Sodium (Protonix Inj) 40 mg IVP DAILY [facility] Last Admin: 07/08/17 09:47 Dose: 40 mg Saccharomyces Boulardii (Florastor) 250 mg PO BID [facility] Last Admin: 07/08/17 16:51 Dose: Not Given Tacrolimus (Prograf Cap) 5 mg PO BID [facility] Last Admin: 07/08/17 16:51 Dose: 5 mg Vitamin B Complex/Vit C/Folic Acid (Nephro-Tabby) 1 tab PO DAILY [facility] Last Admin: 07/08/17 09:43 Dose: 1 tab - Labs Labs: 07/08/17 06:00 07/08/17 06:00 PT 13.9 Seconds (9.8-13.1) H 07/04/17 06:00 INR 1.3 (0.9-1.2) H 07/04/17 06:00 APTT 29.8 Seconds (25.6-37.1) 07/04/17 06:00
[2017-07-09 06:13] LABS: MAGNESIUM 1.2 MG/DL (1.6-2.3); PHOSPHOROUS 2.3 mg/dl (2.5-4.5)
--- NOTE | 2017-07-09 08:09 | CP.PCM.PN ---
Subjective - Date & Time of Evaluation Date of Evaluation: 07/09/17 Time of Evaluation: 08:07 - Subjective Subjective: General Surgery Consult For Dr. Sanz This patient was sen and examined this AM at bedside. No acute events overnight. Pt did not get out of bed or ambulate yesterday. She reports flatus however denies BM. She denies any nausea vomiting fevers chills chest pain or shortness of breath. She reports she is tolerating diet. Objective - Vital Signs/Intake and Output Vital Signs (last 24 hours): Temp Pulse Resp BP Pulse Ox 97.5 F L 77 19 136/76 98 07/09/17 00:00 07/09/17 00:00 07/09/17 00:00 07/09/17 00:00 07/09/17 00:00 Intake and Output: 07/09/17 07/09/17 06:59 18:59 Intake Total 240 Output Total 53 Balance 187 - Medications Medications: Current Medications Acetaminophen (Tylenol 325mg Tab) 650 mg PO Q6 PRN PRN Reason: Pain, moderate (4-7) Acetaminophen (Tylenol 325mg Tab) 650 mg PO Q4 PRN PRN Reason: Fever >100.4 F Last Admin: 06/27/17 16:35 Dose: 650 mg Amlodipine Besylate (Norvasc) 5 mg PO DAILY [facility] Last Admin: 07/08/17 09:46 Dose: 5 mg Atorvastatin Calcium (Lipitor) 20 mg PO HS [facility] Last Admin: 07/04/17 21:05 Dose: 20 mg Cholecalciferol (Vitamin D) 1,000 intlu PO DAILY [facility] Last Admin: 07/05/17 08:47 Dose: Not Given Cinacalcet (Sensipar) 30 mg PO DAILY [facility] Last Admin: 07/08/17 09:43 Dose: 30 mg Heparin Sodium (Porcine) (Heparin) 5,000 units SC Q12 [facility] PRN Reason: Protocol Last Admin: 07/08/17 21:34 Dose: 5,000 units Home Med (Tacrolimus [Prograf]) 5 mg PO BID [facility] Lactic Acid (Lac-Hydrin 12% Lotion (225 G)) 1 applic TOP TID [facility] Last Admin: 07/08/17 16:51 Dose: 1 applic Magnesium Oxide (Mag-Ox) 800 mg PO DAILY [facility] Methylprednisolone (Solu-Medrol) 5 mg IVP DAILY [facility] Last Admin: 07/08/17 10:21 Dose: 5 mg Metoprolol Tartrate (Lopressor) 12.5 mg PO Q12 [facility] Last Admin: 07/08/17 21:32 Dose: 12.5 mg Morphine Sulfate (Morphine) 2 mg IVP Q4 PRN PRN Reason: Pain, moderate (4-7) Last Admin: 07/05/17 06:30 Dose: 2 mg Mycophenolate Mofetil (Cellcept Cap) 250 mg PO BID [facility] Last Admin: 07/08/17 16:50 Dose: 250 mg Pantoprazole Sodium (Protonix Inj) 40 mg IVP DAILY [facility] Last Admin: 07/08/17 09:47 Dose: 40 mg Saccharomyces Boulardii (Florastor) 250 mg PO BID [facility] Last Admin: 07/08/17 16:51 Dose: Not Given Tacrolimus (Prograf Cap) 5 mg PO BID [facility] Last Admin: 07/08/17 16:51 Dose: 5 mg Vitamin B Complex/Vit C/Folic Acid (Nephro-Tabby) 1 tab PO DAILY [facility] Last Admin: 07/08/17 09:43 Dose: 1 tab - Labs Labs: 07/08/17 06:00 07/08/17 06:00 PT 13.9 Seconds (9.8-13.1) H 07/04/17 06:00 INR 1.3 (0.9-1.2) H 07/04/17 06:00 APTT 29.8 Seconds (25.6-37.1) 07/04/17 06:00 - Constitutional Appears: Non-toxic - Head Exam Head Exam: ATRAUMATIC, NORMOCEPHALIC - Eye Exam Eye Exam: EOMI - ENT Exam ENT Exam: Mucous Membranes Moist - Respiratory Exam Respiratory Exam: NORMAL BREATHING PATTERN - Cardiovascular Exam Cardiovascular Exam: REGULAR RHYTHM, +S1, +S2 - GI/Abdominal Exam GI & Abdominal Exam: Soft. absent: Firm, Guarding, Rigid Additional comments: Incision well approximated non erythematous non draining, rex in place. Drain off suction during exam minimal serosang output 95cc output reported overnight. - Neurological Exam Neurological Exam: Alert, Awake - Skin Skin Exam: Dry, Intact Assessment and Plan - Assessment and Plan (Free Text) Assessment: 62F POD# 3 s/p sigmoid resection with primary anastamosis and doing well Vital Signs Stable Mag & Phos repleted Regular Diet Monitor bowel function Ambulate Monitor drain output D/W Dr. Yvon Coates PGY2
[2017-07-09] MEDS ORDERED: Magnesium Sulfate 1 gm in D5W 1 GM/100 ML BAG IVPB ONE (08:15)
--- NOTE | 2017-07-09 08:31 | CP.PCM.PN ---
Subjective - Date & Time of Evaluation Date of Evaluation: 07/09/17 Time of Evaluation: 08:21 - Subjective Subjective: 62 y/o female seen at bedside this morning resting comfortably at time of visit. She admits to mild surgical site tenderness but is otherwise experiencing no pain or discomfort. Admits to passing flatus but denies having a BM since surgery 5 days ago. Denies N/V and is tolerating PO diet well. Pt denies diarrhea, constipation. Denies F/C/CP/SOB. Objective - Vital Signs/Intake and Output Vital Signs (last 24 hours): Temp Pulse Resp BP Pulse Ox 98.1 F 72 20 138/72 98 07/09/17 08:06 07/09/17 08:06 07/09/17 08:06 07/09/17 08:06 07/09/17 08:06 Intake and Output: 07/09/17 07/09/17 06:59 18:59 Intake Total 240 Output Total 53 Balance 187 - Medications Medications: Current Medications Acetaminophen (Tylenol 325mg Tab) 650 mg PO Q6 PRN PRN Reason: Pain, moderate (4-7) Acetaminophen (Tylenol 325mg Tab) 650 mg PO Q4 PRN PRN Reason: Fever >100.4 F Last Admin: 06/27/17 16:35 Dose: 650 mg Amlodipine Besylate (Norvasc) 5 mg PO DAILY [facility] Last Admin: 07/08/17 09:46 Dose: 5 mg Atorvastatin Calcium (Lipitor) 20 mg PO HS [facility] Last Admin: 07/04/17 21:05 Dose: 20 mg Cholecalciferol (Vitamin D) 1,000 intlu PO DAILY [facility] Last Admin: 07/05/17 08:47 Dose: Not Given Cinacalcet (Sensipar) 30 mg PO DAILY [facility] Last Admin: 07/08/17 09:43 Dose: 30 mg Heparin Sodium (Porcine) (Heparin) 5,000 units SC Q12 [facility] PRN Reason: Protocol Last Admin: 07/08/17 21:34 Dose: 5,000 units Home Med (Tacrolimus [Prograf]) 5 mg PO BID [facility] Magnesium Sulfate 1 gm/ Sodium (Chloride) 102 mls @ 102 mls/hr IVPB ONCE ONE PRN Reason: 1 GM/HR Stop: 07/09/17 09:29 Lactic Acid (Lac-Hydrin 12% Lotion (225 G)) 1 applic TOP TID [facility] Last Admin: 07/08/17 16:51 Dose: 1 applic Magnesium Oxide (Mag-Ox) 800 mg PO DAILY [facility] Methylprednisolone (Solu-Medrol) 5 mg IVP DAILY [facility] Last Admin: 07/08/17 10:21 Dose: 5 mg Metoprolol Tartrate (Lopressor) 12.5 mg PO Q12 [facility] Last Admin: 07/08/17 21:32 Dose: 12.5 mg Mycophenolate Mofetil (Cellcept Cap) 250 mg PO BID [facility] Last Admin: 07/08/17 16:50 Dose: 250 mg Pantoprazole Sodium (Protonix Inj) 40 mg IVP DAILY [facility] Last Admin: 07/08/17 09:47 Dose: 40 mg Saccharomyces Boulardii (Florastor) 250 mg PO BID [facility] Last Admin: 07/08/17 16:51 Dose: Not Given Sodium Phosphate (Potassium/Sodium Phosphate) 500 mg PO DAILY [facility] Tacrolimus (Prograf Cap) 5 mg PO BID [facility] Last Admin: 07/08/17 16:51 Dose: 5 mg Vitamin B Complex/Vit C/Folic Acid (Nephro-Tabby) 1 tab PO DAILY [facility] Last Admin: 07/08/17 09:43 Dose: 1 tab - Labs Labs: 07/08/17 06:00 07/08/17 06:00 PT 13.9 Seconds (9.8-13.1) H 07/04/17 06:00 INR 1.3 (0.9-1.2) H 07/04/17 06:00 APTT 29.8 Seconds (25.6-37.1) 07/04/17 06:00 - Constitutional Appears: Non-toxic, No Acute Distress, Older Than Stated Age, Cachectic - Head Exam Head Exam: ATRAUMATIC, NORMOCEPHALIC - Eye Exam Eye Exam: Normal appearance Pupil Exam: NORMAL ACCOMODATION, PERRL - ENT Exam ENT Exam: Mucous Membranes Moist, Normal Exam - Neck Exam Neck Exam: Full ROM, Normal Inspection. absent: Tenderness - Respiratory Exam Respiratory Exam: Clear to Ausculation Bilateral, NORMAL BREATHING PATTERN. absent: Rhonchi, Wheezes, Respiratory Distress - Cardiovascular Exam Cardiovascular Exam: REGULAR RHYTHM, +S1, +S2 - GI/Abdominal Exam GI & Abdominal Exam: Soft, Tenderness, Normal Bowel Sounds. absent: Distended Additional comments: mild LLQ tenderness at surgical site drain at surgical site with approx 90 cc serosanguinous output - Rectal Exam Rectal Exam: Deferred - Extremities Exam Extremities Exam: Normal Capillary Refill, Normal Inspection. absent: Calf Tenderness, Pedal Edema - Back Exam Back Exam: NORMAL INSPECTION - Neurological Exam Neurological Exam: Alert, Awake, Oriented x3 - Psychiatric Exam Psychiatric exam: Flat Affect - Skin Skin Exam: Dry, Intact, Normal Color Additional comments: ecchymosis noted to dorsal aspect of left hand, likely at previous IV site Assessment and Plan - Assessment and Plan (Free Text) Assessment: 1) Diverticulitis -CT abdomen: 6 cm thick walled collection of fluid and gas adjacent to sigmoid colon. DDX includes giant sigmoid diverticulitis vs. communicating abscess -POD#5 s/p sigmoid colon resection with colorectal anastamosis with Dr. Sanz -cardiology Dr. Heath on consult -ID Dr. Rodriguez on consult: s/p abx regimen of IV Cipro, IV Aztreonam --Flagyl previously D/C because of nausea -Tylenol, Morphine prn for pain control 2) Sepsis, resolved -on admission: WBC 13.2; Tmax 100.5, lactic acid 1.2 -WBC trending down, 8.3 at present -s/p 10 days IV abx (Cipro, Aztreonam; Flagyl x 8days) -PICC line intact to R arm -at present, afebrile and lactate WNL -blood cx final - no growth 3) Hypercalcemia (resolved) -Ca levels down to 8.7 -Continue IV fluids -Cinacalcet 4) Hx of renal transplant -continue Mycophenolate and Prednisone -Dr. Glez on consult 5) Anemia -Hgb 9.6 -continue to monitor 6) Hypertension -Stable -continue Norvasc -Metoprolol added per cardiology, to continue taking 2-3 weeks post-op -monitor BP 7) Hyperlipidemia -continue Atorvastatin 8) Sacral decubitus ulcer, stage 1 -move pt q2h -encouraged patient to move in bed to prevent worsening of pressure ulcer -nutrashield ointment BID 9) Recurrent UTIs -no urinary symptoms at present 10) DVT prophylaxis -SCDs -Heparin 5000 units SC q8 11) Code status -full code
[2017-07-09] MEDS: Saccharomyces Boulardi 250 mg Cap PO SCH ×2 (10:13→18:20)
[2017-07-09] MEDS: Magnesium Oxide 400 mg Tab UD PO SCH (10:15)
[2017-07-09] MEDS: Multivitamin Vitamin B Complex (Nephro-Vite) Tab PO SCH (10:15)
[2017-07-09] MEDS: MethylPREDNISolone 40 mg Vial IVP SCH (11:48)
--- NOTE | 2017-07-09 17:50 | CP.PCM.PN ---
Subjective - Date & Time of Evaluation Date of Evaluation: 07/09/17 Time of Evaluation: 15:00 - Subjective Subjective: SEEN ON RENAL F/U IN BED LUING FLAT DENIES N , V , D, C .. STATES SHE HASNT PASSED BM YET .. ONLY GAS RENAL FUNCTION STABLE Objective - Vital Signs/Intake and Output Vital Signs (last 24 hours): Temp Pulse Resp BP Pulse Ox 97.8 F 78 20 122/68 95 07/09/17 16:09 07/09/17 16:09 07/09/17 16:09 07/09/17 16:09 07/09/17 16:09 Intake and Output: 07/09/17 07/09/17 06:59 18:59 Intake Total 240 Output Total 53 Balance 187 - Medications Medications: Current Medications Acetaminophen (Tylenol 325mg Tab) 650 mg PO Q6 PRN PRN Reason: Pain, moderate (4-7) Acetaminophen (Tylenol 325mg Tab) 650 mg PO Q4 PRN PRN Reason: Fever >100.4 F Last Admin: 06/27/17 16:35 Dose: 650 mg Amlodipine Besylate (Norvasc) 5 mg PO DAILY [facility] Last Admin: 07/09/17 10:15 Dose: 5 mg Atorvastatin Calcium (Lipitor) 20 mg PO HS [facility] Last Admin: 07/04/17 21:05 Dose: 20 mg Cholecalciferol (Vitamin D) 1,000 intlu PO DAILY [facility] Last Admin: 07/05/17 08:47 Dose: Not Given Cinacalcet (Sensipar) 30 mg PO DAILY [facility] Last Admin: 07/09/17 10:12 Dose: 30 mg Heparin Sodium (Porcine) (Heparin) 5,000 units SC Q12 [facility] PRN Reason: Protocol Last Admin: 07/09/17 10:13 Dose: 5,000 units Home Med (Tacrolimus [Prograf]) 5 mg PO BID [facility] Lactic Acid (Lac-Hydrin 12% Lotion (225 G)) 1 applic TOP TID [facility] Last Admin: 07/09/17 13:12 Dose: 1 applic Magnesium Oxide (Mag-Ox) 800 mg PO DAILY [facility] Last Admin: 07/09/17 10:15 Dose: 800 mg Methylprednisolone (Solu-Medrol) 5 mg IVP DAILY [facility] Last Admin: 07/09/17 11:48 Dose: 5 mg Metoprolol Tartrate (Lopressor) 12.5 mg PO Q12 [facility] Last Admin: 07/09/17 10:14 Dose: 12.5 mg Mycophenolate Mofetil (Cellcept Cap) 250 mg PO BID [facility] Last Admin: 07/09/17 10:13 Dose: 250 mg Pantoprazole Sodium (Protonix Inj) 40 mg IVP DAILY [facility] Last Admin: 07/09/17 10:16 Dose: 40 mg Saccharomyces Boulardii (Florastor) 250 mg PO BID [facility] Last Admin: 07/09/17 10:13 Dose: 250 mg Sodium Phosphate (Potassium/Sodium Phosphate) 500 mg PO DAILY [facility] Last Admin: 07/09/17 10:16 Dose: 500 mg Tacrolimus (Prograf Cap) 5 mg PO BID [facility] Last Admin: 07/09/17 10:16 Dose: 5 mg Vitamin B Complex/Vit C/Folic Acid (Nephro-Tabby) 1 tab PO DAILY [facility] Last Admin: 07/09/17 10:15 Dose: 1 tab - Labs Labs: 07/08/17 06:00 07/08/17 06:00 PT 13.9 Seconds (9.8-13.1) H 07/04/17 06:00 INR 1.3 (0.9-1.2) H 07/04/17 06:00 APTT 29.8 Seconds (25.6-37.1) 07/04/17 06:00 Assessment and Plan - Assessment and Plan (Free Text) Assessment: S/P RENAL TRX .. RENAL FUNCTION REMAINS STABLE ELECTROLYTES OK S/P SIGMOIDECTOMY WITH PRIMARY ANASTOMOSIS P : OFF IVF C/O CURRENT MEDS C/O PRESENT MANAGEMENT LAXATIVE ??
[2017-07-10] MEDS: Saccharomyces Boulardi 250 mg Cap PO SCH ×2 (09:01→17:26)
[2017-07-10] MEDS: Magnesium Oxide 400 mg Tab UD PO SCH (09:01)
[2017-07-10] MEDS: Multivitamin Vitamin B Complex (Nephro-Vite) Tab PO SCH (09:02)
[2017-07-10] MEDS: MethylPREDNISolone 40 mg Vial IVP SCH (09:18)
--- NOTE | 2017-07-10 10:10 | CP.PCM.PN ---
Subjective - Date & Time of Evaluation Date of Evaluation: 07/10/17 Time of Evaluation: 08:20 - Subjective Subjective: 62 y/o female seen resting in bed this morning, refusing her breakfast. Pt says she does not like her food and doesn't want it. Admits to tenderness in the lower part of her surgical site. Says her dressing was removed this morning prior to visit. Denies having a BM since surgery. Admits to passing flatus. Admits to frequent and regular urination. Denies F/C/N/V/CP/SOB. Objective - Vital Signs/Intake and Output Vital Signs (last 24 hours): Temp Pulse Resp BP Pulse Ox 98.2 F 84 18 117/59 L 96 07/10/17 07:45 07/10/17 07:45 07/10/17 07:45 07/10/17 07:45 07/10/17 07:45 Intake and Output: 07/10/17 07/10/17 06:59 18:59 Intake Total 750 Output Total 555 Balance 195 - Medications Medications: Current Medications Acetaminophen (Tylenol 325mg Tab) 650 mg PO Q6 PRN PRN Reason: Pain, moderate (4-7) Acetaminophen (Tylenol 325mg Tab) 650 mg PO Q4 PRN PRN Reason: Fever >100.4 F Last Admin: 06/27/17 16:35 Dose: 650 mg Amlodipine Besylate (Norvasc) 5 mg PO DAILY [facility] Last Admin: 07/10/17 09:02 Dose: 5 mg Atorvastatin Calcium (Lipitor) 20 mg PO HS [facility] Last Admin: 07/04/17 21:05 Dose: 20 mg Cholecalciferol (Vitamin D) 1,000 intlu PO DAILY [facility] Last Admin: 07/05/17 08:47 Dose: Not Given Cinacalcet (Sensipar) 30 mg PO DAILY [facility] Last Admin: 07/10/17 09:01 Dose: 30 mg Heparin Sodium (Porcine) (Heparin) 5,000 units SC Q12 [facility] PRN Reason: Protocol Last Admin: 07/10/17 08:58 Dose: 5,000 units Home Med (Tacrolimus [Prograf]) 5 mg PO BID [facility] Lactic Acid (Lac-Hydrin 12% Lotion (225 G)) 1 applic TOP TID [facility] Last Admin: 07/10/17 08:58 Dose: 1 applic Magnesium Oxide (Mag-Ox) 800 mg PO DAILY [facility] Last Admin: 07/10/17 09:01 Dose: 800 mg Methylprednisolone (Solu-Medrol) 5 mg IVP DAILY [facility] Last Admin: 07/10/17 09:18 Dose: 5 mg Metoprolol Tartrate (Lopressor) 12.5 mg PO Q12 [facility] Last Admin: 07/10/17 08:57 Dose: 12.5 mg Mycophenolate Mofetil (Cellcept Cap) 250 mg PO BID [facility] Last Admin: 07/10/17 09:01 Dose: 250 mg Pantoprazole Sodium (Protonix Inj) 40 mg IVP DAILY [facility] Last Admin: 07/10/17 09:05 Dose: 40 mg Saccharomyces Boulardii (Florastor) 250 mg PO BID [facility] Last Admin: 07/10/17 09:01 Dose: 250 mg Sodium Phosphate (Potassium/Sodium Phosphate) 500 mg PO DAILY [facility] Last Admin: 07/10/17 09:02 Dose: 500 mg Tacrolimus (Prograf Cap) 5 mg PO BID [facility] Last Admin: 07/10/17 09:00 Dose: 5 mg Vitamin B Complex/Vit C/Folic Acid (Nephro-Tabby) 1 tab PO DAILY [facility] Last Admin: 07/10/17 09:02 Dose: 1 tab - Labs Labs: 07/08/17 06:00 07/08/17 06:00 PT 13.9 Seconds (9.8-13.1) H 07/04/17 06:00 INR 1.3 (0.9-1.2) H 07/04/17 06:00 APTT 29.8 Seconds (25.6-37.1) 07/04/17 06:00 - Constitutional Appears: Non-toxic, No Acute Distress, Cachectic - Head Exam Head Exam: ATRAUMATIC, NORMOCEPHALIC - Eye Exam Eye Exam: EOMI, Normal appearance Pupil Exam: PERRL - ENT Exam ENT Exam: Mucous Membranes Moist, Normal Exam - Neck Exam Neck Exam: Full ROM, Normal Inspection. absent: Tenderness - Respiratory Exam Respiratory Exam: Clear to Ausculation Bilateral, NORMAL BREATHING PATTERN. absent: Rhonchi, Wheezes, Respiratory Distress - Cardiovascular Exam Cardiovascular Exam: REGULAR RHYTHM, +S1, +S2. absent: JVD - GI/Abdominal Exam GI & Abdominal Exam: Soft. absent: Distended Additional comments: tenderness to palpation of lower middle quadrant at distal aspect of surgical site surgical rex intact to incision site, no dehiscence noted, no active drainage, no lory incision erythema, incision ends well coapted Drain in place, approx 45 cc drainage - Extremities Exam Extremities Exam: Normal Capillary Refill. absent: Calf Tenderness, Pedal Edema - Back Exam Back Exam: NORMAL INSPECTION - Neurological Exam Neurological Exam: Alert, Awake, Oriented x3 - Psychiatric Exam Psychiatric exam: Flat Affect Additional comments: pt seems sad, slightly depressed - Skin Skin Exam: Dry, Intact Additional comments: -stage 1 sacral decubitus ulcer, improving since admission, decreasing erythema -skin more well hydrated at present Assessment and Plan - Assessment and Plan (Free Text) Assessment: 1) Diverticulitis -CT abdomen: 6 cm thick walled collection of fluid and gas adjacent to sigmoid colon. DDX includes giant sigmoid diverticulitis vs. communicating abscess -POD#6 s/p sigmoid colon resection with colorectal anastamosis with Dr. Sanz -cardiology Dr. Heath on consult -ID Dr. Rodriguez on consult: s/p abx regimen of IV Cipro, IV Aztreonam --Flagyl previously D/C because of nausea -c/w Tylenol, Morphine prn for pain control -abdominal U/S pending -dispo planning to subacute rehab 2) Sepsis -on admission: WBC 13.2; Tmax 100.5, lactic acid 1.2 -decreased on admission -WBC 14.8 today -new CXR, UA, blood cx, and abdominal U/S ordered -s/p 10 days IV abx (Cipro, Aztreonam; Flagyl x 8days) -PICC line intact to R arm -at present, afebrile and lactate WNL -blood cx final - no growth 3) Hypercalcemia (resolved) -Ca level 9.0 -Cinacalcet 4) Hx of renal transplant -continue Mycophenolate and Prednisone -Dr. Glez on consult 5) Anemia of chronic disease -Hgb 9.3 -continue to monitor 6) Hypertension -Stable -Norvasc d/c due to overcontrol of pressure -Metoprolol added per cardiology, to continue taking 2-3 weeks post-op -monitor BP 7) Hyperlipidemia -continue Atorvastatin 8) Sacral decubitus ulcer, stage 1 -move pt q2h as ordered -encouraged patient to move in bed to prevent worsening of pressure ulcer -nutrashield ointment BID to sacral region 9) Recurrent UTIs -no urinary symptoms at present -UA and urine C&S ordered due to elevated WBC 10) DVT prophylaxis -SCDs -Heparin 5000 units SC q8 11) Code status -full code
--- NOTE | 2017-07-10 11:29 | CP.PCM.PN ---
Subjective - Date & Time of Evaluation Date of Evaluation: 07/10/17 Time of Evaluation: 10:00 - Subjective Subjective: General surgery progress note for Dr. Luiza Webb, PGY-1 Pt S & E at bedside. Pt reports abdominal pain much improved. Tolerating diet, having flatus. OOBTC. Denies N & V, F & C. Adama 105cc serousanguinous out. Objective - Vital Signs/Intake and Output Vital Signs (last 24 hours): Temp Pulse Resp BP Pulse Ox 98.2 F 84 18 117/59 L 96 07/10/17 07:45 07/10/17 07:45 07/10/17 07:45 07/10/17 07:45 07/10/17 07:45 Intake and Output: 07/10/17 07/10/17 06:59 18:59 Intake Total 750 Output Total 555 Balance 195 - Medications Medications: Current Medications Acetaminophen (Tylenol 325mg Tab) 650 mg PO Q6 PRN PRN Reason: Pain, moderate (4-7) Acetaminophen (Tylenol 325mg Tab) 650 mg PO Q4 PRN PRN Reason: Fever >100.4 F Last Admin: 06/27/17 16:35 Dose: 650 mg Atorvastatin Calcium (Lipitor) 20 mg PO HS [facility] Last Admin: 07/04/17 21:05 Dose: 20 mg Cholecalciferol (Vitamin D) 1,000 intlu PO DAILY [facility] Last Admin: 07/05/17 08:47 Dose: Not Given Cinacalcet (Sensipar) 30 mg PO DAILY [facility] Last Admin: 07/10/17 09:01 Dose: 30 mg Heparin Sodium (Porcine) (Heparin) 5,000 units SC Q12 [facility] PRN Reason: Protocol Last Admin: 07/10/17 08:58 Dose: 5,000 units Home Med (Tacrolimus [Prograf]) 5 mg PO BID [facility] Lactic Acid (Lac-Hydrin 12% Lotion (225 G)) 1 applic TOP TID [facility] Last Admin: 07/10/17 08:58 Dose: 1 applic Magnesium Oxide (Mag-Ox) 800 mg PO DAILY [facility] Last Admin: 07/10/17 09:01 Dose: 800 mg Methylprednisolone (Solu-Medrol) 5 mg IVP DAILY [facility] Last Admin: 07/10/17 09:18 Dose: 5 mg Metoprolol Tartrate (Lopressor) 12.5 mg PO Q12 [facility] Last Admin: 07/10/17 08:57 Dose: 12.5 mg Mycophenolate Mofetil (Cellcept Cap) 250 mg PO BID [facility] Last Admin: 07/10/17 09:01 Dose: 250 mg Pantoprazole Sodium (Protonix Inj) 40 mg IVP DAILY [facility] Last Admin: 07/10/17 09:05 Dose: 40 mg Saccharomyces Boulardii (Florastor) 250 mg PO BID [facility] Last Admin: 07/10/17 09:01 Dose: 250 mg Sodium Phosphate (Potassium/Sodium Phosphate) 500 mg PO DAILY [facility] Last Admin: 07/10/17 09:02 Dose: 500 mg Tacrolimus (Prograf Cap) 5 mg PO BID [facility] Last Admin: 07/10/17 09:00 Dose: 5 mg Vitamin B Complex/Vit C/Folic Acid (Nephro-Tabby) 1 tab PO DAILY [facility] Last Admin: 07/10/17 09:02 Dose: 1 tab - Labs Labs: 07/08/17 06:00 07/08/17 06:00 PT 13.9 Seconds (9.8-13.1) H 07/04/17 06:00 INR 1.3 (0.9-1.2) H 07/04/17 06:00 APTT 29.8 Seconds (25.6-37.1) 07/04/17 06:00 - Constitutional Appears: Non-toxic, No Acute Distress - Head Exam Head Exam: ATRAUMATIC, NORMAL INSPECTION, NORMOCEPHALIC - Eye Exam Eye Exam: EOMI, Normal appearance - ENT Exam ENT Exam: Mucous Membranes Moist, Normal Exam - Neck Exam Neck Exam: Full ROM, Normal Inspection - Respiratory Exam Respiratory Exam: NORMAL BREATHING PATTERN - Cardiovascular Exam Cardiovascular Exam: REGULAR RHYTHM, +S1, +S2 - GI/Abdominal Exam GI & Abdominal Exam: Soft, Tenderness (alone incision site). absent: Distended , Firm, Guarding Additional comments: midline incision site with rex in place, no drainage noted. Adama with 106cc serosanguinous output/24H - Extremities Exam Extremities Exam: absent: Pedal Edema - Neurological Exam Neurological Exam: Alert, Awake, CN II-XII Intact, Oriented x3 - Psychiatric Exam Psychiatric exam: Normal Affect, Normal Mood - Skin Skin Exam: Dry, Intact, Normal Color, Warm Assessment and Plan - Assessment and Plan (Free Text) Assessment: 62F POD# 6 s/p sigmoid resection with primary handsewn anastamosis and doing well Plan: OOBTC Ambulate with PT Cont reg diet Cont pain control Monitor for return of bowel function DW attending Webb, PGY-1
[2017-07-10 12:22] LABS: BASO % 0.1 % (0.0-2.0); EOS % 0.1 % (0.0-4.0); HEMATOCRIT 28.9 % (34.0-47.0); LYMPH # 1.1 K/uL (1.0-4.3); LYMPH % 7.1 % (20.0-40.0); MEAN CELL VOLUME 86.1 fl (81.0-99.0); MEAN CORPUSCULAR HEMOGLOBIN 27.8 pg (27.0-31.0); MEAN CORPUSCULAR HGB CONC 32.3 g/dL (33.0-37.0); MEAN PLATELET VOLUME 7.5 fl (7.2-11.7); MONO # 0.4 K/uL (0.0-0.8); NEUT # 13.2 K/uL (1.8-7.0); NEUT % 89.7 % (50.0-75.0); PLATELET COUNT 316 K/uL (130-400); RED CELL DISTRIBUTION WIDTH 15.8 % (11.5-14.5); WHITE BLOOD COUNT 14.8 K/uL (4.8-10.8)
[2017-07-10 12:42] LABS: BLOOD UREA NITROGEN 17 mg/dl (7-17); CALCIUM 9.4 mg/dL (8.4-10.2); CARBON DIOXIDE 25 mmol/L (22-30); CHLORIDE 106 mmol/L (98-107); GFR AFRICAN-AMERICAN > 60; GLUCOSE,RANDOM 159 mg/dL (65-105); POTASSIUM 4.4 MMOL/L (3.6-5.0); SODIUM 136 mmol/l (132-148)
[2017-07-10 13:21] LABS: EOSINOPHIL 1 % (0-7); NEUTROPHIL 92 % (42-75); TOTAL CELLS COUNTED 100
--- NOTE | 2017-07-10 17:01 | RAD ---
HISTORY: s/p surgery, using incentive spirometer COMPARISON: Chest radiograph dated 06/27/2017. TECHNIQUE: Chest PA and lateral FINDINGS: LUNGS: Left basilar atelectasis. PLEURA: New small left pleural effusion. No pneumothorax apparent. CARDIOVASCULAR: Normal. OSSEOUS STRUCTURES: No significant abnormalities. VISUALIZED UPPER ABDOMEN: Left upper quadrant skin rex. OTHER FINDINGS: Right axillobrachial region vascular stent redemonstrated. Right upper extremity venous catheter. IMPRESSION: Small left pleural effusion.
[2017-07-11 06:35] LABS: BASO % 0.1 % (0.0-2.0); EOS # 0.1 K/uL (0.0-0.7); HEMATOCRIT 27.4 % (34.0-47.0); LYMPH # 2.2 K/uL (1.0-4.3); LYMPH % 28.9 % (20.0-40.0); MEAN CELL VOLUME 87.1 fl (81.0-99.0); MEAN CORPUSCULAR HEMOGLOBIN 27.9 pg (27.0-31.0); MEAN PLATELET VOLUME 7.5 fl (7.2-11.7); MONO # 0.6 K/uL (0.0-0.8); MONO % 8.1 % (0.0-10.0); NEUT # 4.6 K/uL (1.8-7.0); NEUT % 61.9 % (50.0-75.0); RED CELL DISTRIBUTION WIDTH 15.4 % (11.5-14.5); WHITE BLOOD COUNT 7.5 K/uL (4.8-10.8)
[2017-07-11 06:59] LABS: BLOOD UREA NITROGEN 15 mg/dl (7-17); CALCIUM 9.8 mg/dL (8.4-10.2); CARBON DIOXIDE 28 mmol/L (22-30); CHLORIDE 107 mmol/L (98-107); GFR AFRICAN-AMERICAN > 60; GLUCOSE,RANDOM 112 mg/dL (65-105); MAGNESIUM 1.3 MG/DL (1.6-2.3); POTASSIUM 4.4 MMOL/L (3.6-5.0); SODIUM 139 mmol/l (132-148)
--- NOTE | 2017-07-11 08:49 | CP.PCM.PN ---
Subjective - Date & Time of Evaluation Date of Evaluation: 07/11/17 Time of Evaluation: 08:47 - Subjective Subjective: General Surgery Note for Dr. Sanz This patient was seen and examined this AM at bedside no acute events overnight. She reports BM and flatus. Denies any abdominal pain at this time. Her drain output was 45cc serosanguinous over 24 hours. She denies any SOB, chest pain, fevers. Objective - Vital Signs/Intake and Output Vital Signs (last 24 hours): Temp Pulse Resp BP Pulse Ox 98.4 F 68 20 147/78 97 07/11/17 07:53 07/11/17 07:53 07/11/17 07:53 07/11/17 07:53 07/11/17 07:53 Intake and Output: 07/11/17 07/11/17 06:59 18:59 Intake Total 100 Balance 100 - Medications Medications: Current Medications Acetaminophen (Tylenol 325mg Tab) 650 mg PO Q6 PRN PRN Reason: Pain, moderate (4-7) Acetaminophen (Tylenol 325mg Tab) 650 mg PO Q4 PRN PRN Reason: Fever >100.4 F Last Admin: 06/27/17 16:35 Dose: 650 mg Atorvastatin Calcium (Lipitor) 20 mg PO HS [facility] Last Admin: 07/04/17 21:05 Dose: 20 mg Cholecalciferol (Vitamin D) 1,000 intlu PO DAILY [facility] Last Admin: 07/05/17 08:47 Dose: Not Given Cinacalcet (Sensipar) 30 mg PO DAILY [facility] Last Admin: 07/10/17 09:01 Dose: 30 mg Heparin Sodium (Porcine) (Heparin) 5,000 units SC Q12 [facility] PRN Reason: Protocol Last Admin: 07/10/17 21:45 Dose: 5,000 units Home Med (Tacrolimus [Prograf]) 5 mg PO BID [facility] Lactic Acid (Lac-Hydrin 12% Lotion (225 G)) 1 applic TOP TID [facility] Last Admin: 07/10/17 17:26 Dose: 1 applic Magnesium Oxide (Mag-Ox) 800 mg PO DAILY [facility] Last Admin: 07/10/17 09:01 Dose: 800 mg Methylprednisolone (Solu-Medrol) 5 mg IVP DAILY [facility] Last Admin: 07/10/17 09:18 Dose: 5 mg Metoprolol Tartrate (Lopressor) 12.5 mg PO Q12 [facility] Last Admin: 07/10/17 21:45 Dose: 12.5 mg Mycophenolate Mofetil (Cellcept Cap) 250 mg PO BID [facility] Last Admin: 07/10/17 17:28 Dose: 250 mg Pantoprazole Sodium (Protonix Inj) 40 mg IVP DAILY [facility] Last Admin: 07/10/17 09:05 Dose: 40 mg Saccharomyces Boulardii (Florastor) 250 mg PO BID [facility] Last Admin: 07/10/17 17:26 Dose: 250 mg Sodium Phosphate (Potassium/Sodium Phosphate) 500 mg PO DAILY [facility] Last Admin: 07/10/17 09:02 Dose: 500 mg Tacrolimus (Prograf Cap) 5 mg PO BID [facility] Last Admin: 07/10/17 17:26 Dose: 5 mg Vitamin B Complex/Vit C/Folic Acid (Nephro-Tabby) 1 tab PO DAILY [facility] Last Admin: 07/10/17 09:02 Dose: 1 tab - Labs Labs: 07/11/17 06:00 07/11/17 06:00 PT 13.9 Seconds (9.8-13.1) H 07/04/17 06:00 INR 1.3 (0.9-1.2) H 07/04/17 06:00 APTT 29.8 Seconds (25.6-37.1) 07/04/17 06:00 - Constitutional Appears: Non-toxic, No Acute Distress - Head Exam Head Exam: ATRAUMATIC, NORMAL INSPECTION, NORMOCEPHALIC - Eye Exam Eye Exam: EOMI, Normal appearance - ENT Exam ENT Exam: Mucous Membranes Moist, Normal Exam - Neck Exam Neck Exam: Full ROM, Normal Inspection - Respiratory Exam Respiratory Exam: NORMAL BREATHING PATTERN - Cardiovascular Exam Cardiovascular Exam: REGULAR RHYTHM, +S1, +S2 - GI/Abdominal Exam GI & Abdominal Exam: Soft, Tenderness (alone incision site). absent: Distended , Firm, Guarding Additional comments: midline incision site with rex in place, no drainage noted. Adama with 45cc serosanguinous output/24H - Extremities Exam Extremities Exam: absent: Pedal Edema - Neurological Exam Neurological Exam: Alert, Awake, CN II-XII Intact, Oriented x3 - Psychiatric Exam Psychiatric exam: Normal Affect, Normal Mood - Skin Skin Exam: Dry, Intact, Normal Color, Warm Assessment and Plan - Assessment and Plan (Free Text) Assessment: 62F POD# 7 s/p sigmoid resection with primary handsewn anastamosis and doing well Plan: DC Adama Drain Ambulate with PT Cont reg diet Clear for transfer to transitional care unit today DW Dr. Yvon Coates PGY2
[2017-07-11] MEDS: MethylPREDNISolone 40 mg Vial IVP SCH (09:57)
[2017-07-11] MEDS: Magnesium Oxide 400 mg Tab UD PO SCH (10:09)
[2017-07-11] MEDS: Saccharomyces Boulardi 250 mg Cap PO SCH ×2 (10:10→17:46)
[2017-07-11] MEDS: Multivitamin Vitamin B Complex (Nephro-Vite) Tab PO SCH (10:10)
--- NOTE | 2017-07-11 11:21 | US ---
HISTORY: s/p colectomy COMPARISON: None. TECHNIQUE: Sonographic evaluation of the abdomen. FINDINGS: LIVER: Measures 12.2 cm. Normal echogenicity of the liver parenchyma. No mass. No intrahepatic bile duct dilatation. GALLBLADDER: Cholelithiasis identified within the dependent gallbladder along with sludge with delete wall thickness mildly increased to 3.2 mm. No pericholecystic fluid collection evident. There is no sonographic Godoy's sign identified. COMMON BILE DUCT: Measures 2.7 mm. No stones. No dilatation. PANCREAS: Unremarkable as visualized. No mass. No ductal dilatation. RIGHT KIDNEY: Measures 7.3 x 3.1 x 3.1cm. The right kidney is markedly atrophic and ectatic without hydronephrosis or pericholecystic fluid collection evident. A right hemipelvis transplant kidney is identified measuring 11.4 x 5.1 x 4.2 cm without obstructive uropathy, urolithiasis or perinephric fluid collection evident. LEFT KIDNEY: The left kidney is not identified due to excessive overlying bowel gas. SPLEEN: Normal in size, measuring 8.0 cm, and contour. No mass. AORTA: No aneurysmal dilatation. IVC: Unremarkable. OTHER FINDINGS: Incidental small bilateral pleural effusions are encountered. IMPRESSION: 1. Transplant kidney is identified at the right hemipelvis without hydronephrosis, pericholecystic fluid collection or discrete solid mass. A simple cyst in the upper pole measure 1.5 cm greatest dimension with nearly adjacent cyst slightly posterior to it measuring 0.7 cm greatest dimension. Markedly atrophic right kidney. Left kidney is obscured by overlying bowel. 2. Cholelithiasis with mild mural thickening of the gallbladder. No pericholecystic fluid collection or sonographic Godoy's sign. Clinically correlate nevertheless for potential cholecystitis. 3. Incidental minimal bilateral pleural effusions identified.
--- NOTE | 2017-07-11 12:29 | CP.PCM.PN ---
Subjective - Date & Time of Evaluation Date of Evaluation: 07/11/17 Time of Evaluation: 08:40 - Subjective Subjective: 62 y/o female seen at bedside this morning. Pt resting in bed at time of visit with drain intact to LLQ. Admits to mild pain at the surgical site. States she had 2 BM, one yesterday afternoon and one this morning. Denies diarrhea or constipation. Denies F/C/N/V/CP/SOB. Objective - Vital Signs/Intake and Output Vital Signs (last 24 hours): Temp Pulse Resp BP Pulse Ox 98.4 F 68 20 147/78 97 07/11/17 07:53 07/11/17 07:53 07/11/17 07:53 07/11/17 07:53 07/11/17 07:53 Intake and Output: 07/11/17 07/11/17 06:59 18:59 Intake Total 100 Balance 100 - Medications Medications: Current Medications Acetaminophen (Tylenol 325mg Tab) 650 mg PO Q6 PRN PRN Reason: Pain, moderate (4-7) Acetaminophen (Tylenol 325mg Tab) 650 mg PO Q4 PRN PRN Reason: Fever >100.4 F Last Admin: 06/27/17 16:35 Dose: 650 mg Atorvastatin Calcium (Lipitor) 20 mg PO HS [facility] Last Admin: 07/04/17 21:05 Dose: 20 mg Cholecalciferol (Vitamin D) 1,000 intlu PO DAILY [facility] Last Admin: 07/05/17 08:47 Dose: Not Given Cinacalcet (Sensipar) 30 mg PO DAILY [facility] Last Admin: 07/11/17 10:10 Dose: 30 mg Heparin Sodium (Porcine) (Heparin) 5,000 units SC Q12 [facility] PRN Reason: Protocol Last Admin: 07/11/17 10:00 Dose: 5,000 units Home Med (Tacrolimus [Prograf]) 5 mg PO BID [facility] Lactic Acid (Lac-Hydrin 12% Lotion (225 G)) 1 applic TOP TID [facility] Last Admin: 07/11/17 12:21 Dose: 1 applic Magnesium Oxide (Mag-Ox) 800 mg PO DAILY [facility] Last Admin: 07/11/17 10:09 Dose: 800 mg Metoprolol Tartrate (Lopressor) 12.5 mg PO Q12 [facility] Last Admin: 07/11/17 10:09 Dose: 12.5 mg Mycophenolate Mofetil (Cellcept Cap) 250 mg PO BID [facility] Last Admin: 07/11/17 10:09 Dose: 250 mg Pantoprazole Sodium (Protonix Inj) 40 mg IVP DAILY [facility] Last Admin: 07/11/17 09:58 Dose: 40 mg Saccharomyces Boulardii (Florastor) 250 mg PO BID [facility] Last Admin: 07/11/17 10:10 Dose: 250 mg Sodium Phosphate (Potassium/Sodium Phosphate) 500 mg PO DAILY [facility] Last Admin: 07/11/17 10:08 Dose: 500 mg Tacrolimus (Prograf Cap) 5 mg PO BID [facility] Last Admin: 07/11/17 10:06 Dose: 5 mg Vitamin B Complex/Vit C/Folic Acid (Nephro-Tabby) 1 tab PO DAILY [facility] Last Admin: 07/11/17 10:10 Dose: 1 tab - Labs Labs: 07/11/17 06:00 07/11/17 06:00 PT 13.9 Seconds (9.8-13.1) H 07/04/17 06:00 INR 1.3 (0.9-1.2) H 07/04/17 06:00 APTT 29.8 Seconds (25.6-37.1) 07/04/17 06:00 - Constitutional Appears: Non-toxic, No Acute Distress, Cachectic - Head Exam Head Exam: ATRAUMATIC, NORMOCEPHALIC - Eye Exam Eye Exam: Normal appearance Pupil Exam: NORMAL ACCOMODATION, PERRL - ENT Exam ENT Exam: Mucous Membranes Moist - Neck Exam Neck Exam: Full ROM, Normal Inspection. absent: Tenderness - Respiratory Exam Respiratory Exam: Clear to Ausculation Bilateral, NORMAL BREATHING PATTERN - Cardiovascular Exam Cardiovascular Exam: REGULAR RHYTHM, +S1, +S2 - GI/Abdominal Exam GI & Abdominal Exam: Soft, Tenderness, Normal Bowel Sounds Additional comments: -left middle quadrant surgical incision site with rex intact, no dehiscence , mild tenderness to palpation of distal aspect of incision -dressing overlying small circular drain site, drain pulled prior to visit - 0.5cm diameter skin opening with no erythema - Rectal Exam Rectal Exam: Deferred - Extremities Exam Extremities Exam: Normal Capillary Refill, Normal Inspection. absent: Calf Tenderness - Back Exam Back Exam: NORMAL INSPECTION - Neurological Exam Neurological Exam: Alert, Awake, Oriented x3 - Psychiatric Exam Psychiatric exam: Normal Affect, Normal Mood - Skin Skin Exam: Dry, Intact Additional comments: stage 1 sacral decubitus ulcer improving, no erythema, skin well hydrated Assessment and Plan - Assessment and Plan (Free Text) Assessment: 1) Diverticulitis -CT abdomen: 6 cm thick walled collection of fluid and gas adjacent to sigmoid colon. DDX includes giant sigmoid diverticulitis vs. communicating abscess -POD#7 s/p sigmoid colon resection with colorectal anastamosis with Dr. Sanz -Adama drain pulled today -cardiology Dr. Heath on consult -ID Dr. Rodriguez on consult: s/p abx regimen of IV Cipro, IV Aztreonam --Flagyl previously D/C because of nausea -c/w Tylenol, Morphine prn for pain control -dispo planning to subacute rehab 2) Sepsis, resolved -on admission: WBC 13.2; Tmax 100.5, lactic acid 1.2 -decreased on admission -WBC down from 14.8 to 7.5 today -s/p 10 days IV abx (Cipro, Aztreonam; Flagyl x 8days) -PICC line intact to R arm -at present, afebrile and lactate WNL -blood cx final - no growth -new blood cx pending, UA pending -abdominal U/S ordered due to elevated WBC - reveals cholelithiasis with mild mural thickening of the gallbladder. No pericholecystic fluid collection or sonographic Godoy's sign 3) Pleural effusion -small, noted on CXR on left side and noted bilateral on abdominal U/S -pt currently asymptomatic -monitor for symptoms; will consider PO abx upon discharge 4) Hypercalcemia (resolved) -Ca level 9.8 -Cinacalcet 5) Hx of renal transplant -continue Mycophenolate and Prednisone -Dr. Glez on consult 6) Anemia of chronic disease -Hgb 8.8 -s/p transfusion 2 units PRBC -continue to monitor 7) Hypertension -Stable -Norvasc d/c due to overcontrol of pressure -Metoprolol added per cardiology, to continue taking 2-3 weeks post-op -monitor BP 8) Hyperlipidemia -continue Atorvastatin 9) Sacral decubitus ulcer, stage 1 -move pt q2h as ordered -encouraged patient to move in bed to prevent worsening of pressure ulcer -nutrashield ointment BID to sacral region 10) Recurrent UTIs -no urinary symptoms at present -UA and urine C&S ordered due to elevated WBC on 07/10/17 11) DVT prophylaxis -SCDs -c/w Heparin 5000 units SC q8 12) Code status -full code
[2017-07-11 16:00] VITALS: RESP 18; TEMP 98.5; O2SAT 96
[2017-07-11 20:53] VITALS: BP 118/63; PULSE 77
[2017-07-11 21:20] LABS: RBC URINE 10 /hpf (0-3); URINE BACTERIA RARE (<OCC); URINE BILIRUBIN NEGATIVE (NEGATIVE); URINE BLOOD SMALL (NEGATIVE); URINE COLOR YELLOW (YELLOW); URINE GLUCOSE (UA) 150 mg/dL (Normal); URINE KETONE NEGATIVE (NEGATIVE); URINE LEUKOCYTE ESTERASE NEG Leu/uL (Negative); URINE PROTEIN NEGATIVE (NEGATIVE); URINE UROBILINOGEN 0.2-1.0 mg/dL (0.2-1.0); WBC URINE 2 /hpf (0-5)
--- NOTE | 2017-07-12 07:22 | CP.PCM.DIS ---
Provider - Provider Date of Admission: 06/27/17 11:53 Attending physician: Bisi Lala MD Time Spent in preparation of Discharge (in minutes): 30 Diagnosis - Discharge Diagnosis (1) Acute diverticulitis Status: Acute Priority: Medium Comment: improved (2) Sepsis Status: Acute Priority: High Comment: resolved Hospital Course - Lab Results Lab Results: Micro Results 07/10/17 16:40 Blood Blood Culture - Preliminary NO GROWTH AFTER 24 HOURS 07/10/17 16:30 Blood Blood Culture - Preliminary NO GROWTH AFTER 24 HOURS 06/27/17 10:35 Blood-Venous Blood Culture - Final NO GROWTH AFTER 5 DAYS 06/27/17 10:35 Blood-Venous Gram Stain - Final TEST NOT PERFORMED Most Recent Lab Values WBC 7.5 K/uL (4.8-10.8) 07/11/17 06:00 RBC 3.15 Mil/uL (3.80-5.20) L 07/11/17 06:00 Hgb 8.8 g/dL (12.0-16.0) L 07/11/17 06:00 Hct 27.4 % (34.0-47.0) L 07/11/17 06:00 MCV 87.1 fl (81.0-99.0) 07/11/17 06:00 MCH 27.9 pg (27.0-31.0) 07/11/17 06:00 MCHC 32.0 g/dL (33.0-37.0) L 07/11/17 06:00 RDW 15.4 % (11.5-14.5) H 07/11/17 06:00 Plt Count 268 K/uL (130-400) 07/11/17 06:00 MPV 7.5 fl (7.2-11.7) 07/11/17 06:00 Neut % (Auto) 61.9 % (50.0-75.0) 07/11/17 06:00 Lymph % (Auto) 28.9 % (20.0-40.0) 07/11/17 06:00 Hale % (Auto) 8.1 % (0.0-10.0) 07/11/17 06:00 Eos % (Auto) 1.0 % (0.0-4.0) 07/11/17 06:00 Baso % (Auto) 0.1 % (0.0-2.0) 07/11/17 06:00 Neut # 4.6 K/uL (1.8-7.0) 07/11/17 06:00 Lymph # 2.2 K/uL (1.0-4.3) 07/11/17 06:00 Hale # 0.6 K/uL (0.0-0.8) 07/11/17 06:00 Eos # 0.1 K/uL (0.0-0.7) 07/11/17 06:00 Baso # 0.0 K/uL (0.0-0.2) 07/11/17 06:00 Neutrophils % (Manual) 92 % (42-75) H 07/10/17 12:15 Band Neutrophils % 6 % (0-2) H 06/27/17 10:35 Lymphocytes % (Manual) 5 % (20-50) L 07/10/17 12:15 Monocytes % (Manual) 2 % (0-10) 07/10/17 12:15 Eosinophils % (Manual) 1 % (0-7) 07/10/17 12:15 Toxic Granulation Present 07/10/17 12:15 Platelet Estimate Normal (NORMAL) 07/10/17 12:15 Large Platelets Present 07/05/17 05:29 Hypochromasia (manual) Slight 07/10/17 12:15 Anisocytosis (manual) Slight 07/10/17 12:15 Macrocytosis (manual) Slight 07/05/17 05:29 Tear Drop Cells Slight 07/05/17 05:29 Ovalocytes Slight 07/10/17 12:15 New [place] Cells Slight 07/05/17 05:29 PT 13.9 Seconds (9.8-13.1) H 07/04/17 06:00 INR 1.3 (0.9-1.2) H 07/04/17 06:00 APTT 29.8 Seconds (25.6-37.1) 07/04/17 06:00 pO2 24 mm/Hg (30-55) L 06/27/17 10:45 VBG pH 7.40 (7.32-7.43) 06/27/17 10:45 VBG pCO2 46 mmHg (40-60) 06/27/17 10:45 VBG HCO3 25.8 mmol/L 06/27/17 10:45 VBG Total CO2 29.9 mmol/L (22-28) H 06/27/17 10:45 VBG O2 Sat (Calc) 58.3 % (40-65) 06/27/17 10:45 VBG Base Excess 3.0 mmol/L (0.0-2.0) H 06/27/17 10:45 VBG Potassium 5.5 mmol/L (3.6-5.2) H 06/27/17 10:45 Sodium 134.0 mmol/L (132-148) 06/27/17 10:45 Chloride 104.0 mmol/L (98-107) 06/27/17 10:45 Glucose 140 mg/dL (65-105) H 06/27/17 10:45 Lactate 1.2 mmol/L (0.7-2.1) 06/27/17 10:45 FiO2 21.0 % 06/27/17 10:45 Sodium 139 mmol/l (132-148) 07/11/17 06:00 Potassium 4.4 MMOL/L (3.6-5.0) 07/11/17 06:00 Chloride 107 mmol/L (98-107) 07/11/17 06:00 Carbon Dioxide 28 mmol/L (22-30) 07/11/17 06:00 Anion Gap 8 (10-20) L 07/11/17 06:00 BUN 15 mg/dl (7-17) 07/11/17 06:00 Creatinine 0.7 mg/dl (0.7-1.2) 07/11/17 06:00 Est GFR ( Amer) > 60 07/11/17 06:00 Est GFR (Non-Af Amer) > 60 07/11/17 06:00 POC Glucose (mg/dL) 179 mg/dL (65-110) H 07/04/17 16:50 Random Glucose 112 mg/dL (65-105) H 07/11/17 06:00 Hemoglobin A1c 5.8 % (4.2-6.5) 06/28/17 06:15 Lactic Acid 0.8 MMOL/L (0.7-2.1) 06/28/17 20:55 Calcium 9.8 mg/dL (8.4-10.2) 07/11/17 06:00 Phosphorus 2.0 mg/dl (2.5-4.5) L 07/11/17 06:00 Magnesium 1.3 MG/DL (1.6-2.3) L 07/11/17 06:00 Total Bilirubin 0.2 mg/dl (0.2-1.3) 07/08/17 06:00 GGT 326 U/L (8-78) H 07/04/17 06:00 AST 26 U/L (14-36) 07/08/17 06:00 ALT 29 U/L (9-52) 07/08/17 06:00 Alkaline Phosphatase 116 U/L (38-126) 07/08/17 06:00 Total Protein 4.9 G/DL (6.3-8.2) L 07/08/17 06:00 Albumin 2.1 g/dL (3.5-5.0) L 07/08/17 06:00 Globulin 2.8 gm/dL (2.2-3.9) 07/08/17 06:00 Albumin/Globulin Ratio 0.8 (1.0-2.1) L 07/08/17 06:00 Procalcitonin 0.77 NG/ML (0.19-0.49) H 06/28/17 20:55 Venous Blood Potassium 5.5 mmol/L (3.6-5.2) H 06/27/17 10:45 Urine Color Yellow (YELLOW) 07/11/17 20:00 Urine Clarity Clear (Clear) 07/11/17 20:00 Urine pH 6.0 (5.0-8.0) 07/11/17 20:00 Ur Specific [place] 1.006 (1.003-1.030) 07/11/17 20:00 Urine Protein Negative mg/dL (NEGATIVE) 07/11/17 20:00 Urine Glucose (UA) 150 mg/dL (Normal) 07/11/17 20:00 Urine Ketones Negative mg/dL (NEGATIVE) 07/11/17 20:00 Urine Blood Small (NEGATIVE) 07/11/17 20:00 Urine Nitrate Negative (NEGATIVE) 07/11/17 20:00 Urine Bilirubin Negative (NEGATIVE) 07/11/17 20:00 Urine Urobilinogen 0.2-1.0 mg/dL (0.2-1.0) 07/11/17 20:00 Ur Leukocyte Esterase Neg Benigno/uL (Negative) 07/11/17 20:00 Urine RBC (Auto) 10 /hpf (0-3) H 07/11/17 20:00 Urine Microscopic WBC 2 /hpf (0-5) 07/11/17 20:00 Ur Squamous Epith Cells 5 /hpf (0-5) 07/11/17 20:00 Urine Bacteria Rare (<OCC) 07/11/17 20:00 Hyaline Casts 6-10 /hpf (0-2) H 07/11/17 20:00 Blood Type O POSITIVE 07/02/17 05:45 Antibody Screen Negative 07/02/17 05:45 Crossmatch See Detail 07/02/17 05:45 BBK History Checked Patient has bt 07/02/17 05:45 - Hospital Course Hospital Course: 62 y/o female with PMHx of recurrent diverticulitis, CKD/ESRD s/p right kidney transplant, DM, HTN, HLD, anemia and recurrent UTIs admitted to hospital for diverticulitis vs. communicating abscess of sigmoid colon. Patient underwent sigmoid resection with colorectal anastomosis with general surgery Dr. Sanz and was treated with IV Ciprofloxacin, Flagyl and Aztreonam for 10 days, with ID Dr. Rodriguez on consult. Patient was transfused 2 units of PRBC to ensure hemodynamic stability pre and lory-operatively. Patient was evaluated and treated by physical therapy and will benefit from further rehabilitation. Pt will be discharged in stable condition to [facility]. A prescription was provided with discharge documents for surgical rex to be removed from abdominal incision in two weeks. Patient will follow up as outpatient with Dr. Sanz for surgery, Dr. Glez for her kidneys, Dr. Fried for primary medicine and Dr. Heath for cardiology. Discharge Exam - Head Exam Head Exam: ATRAUMATIC, NORMOCEPHALIC - Eye Exam Eye Exam: EOMI, Normal appearance Pupil Exam: PERRL - ENT Exam ENT Exam: Mucous Membranes Moist - Neck Exam Neck exam: Full Rom, Normal Inspection - Respiratory Exam Respiratory Exam: Clear to PA & Lateral, NORMAL BREATHING PATTERN. absent: Wheezes, Respiratory Distress - Cardiovascular Exam Cardiovascular Exam: REGULAR RHYTHM, +S1, +S2. absent: JVD - GI/Abdominal Exam GI & Abdominal Exam: Normal Bowel Sounds, Soft, Tenderness. absent: Distended Additional comments: -no tenderness to abdominal incision site -surgical rex noted to incision site with well coapted edges, no dehiscence , no lory incision erythema, no drainage noted -adjacent skin opening noted at former drain site, 0.5cm in diameter circular skin break, no erythema, no drainage, no edema - Rectal Exam Rectal Exam: Deferred - Extremities Exam Extremities exam: normal capillary refill, normal inspection, pedal pulses present - Back Exam Back exam: NORMAL INSPECTION - Neurological Exam Neurological exam: Alert, Oriented x3 - Psychiatric Exam Psychiatric exam: Normal Affect, Normal Mood - Skin Skin Exam: Normal Color, Warm Additional comments: stage 1 sacral decubitus ulcer improved, no erythema, skin well hydrated Discharge Plan - Follow Up Plan Condition: STABLE Disposition: REHAB FACILITY/REHAB UNIT Instructions: Diverticulitis (DC), Diverticulitis Diet (DC), Anemia (DC) Referrals: Iza Glez MD [Staff Provider] - Jackie Haeth MD [Staff Provider] - Ryan Fried MD [Family Provider] -
== END 2017-07-11 21:07 | DRG 581 ==
LOC: H.ER 09:35 → H.ERHOLD 11:53 → H.TEL 15:21 → H.MEDSURG1 06-30 20:47
PROVIDERS: ADMIT Family Medicine Geriatric Medicine; ATTEND Family Medicine Geriatric Medicine
PROC: 02HV33Z Insertion of Infusion Device into Superior Vena Cava, Percutaneous Approach (ICD-10-PCS; 2017-07-02)
PROC: 30233K1 Transfusion of Nonautologous Frozen Plasma into Peripheral Vein, Percutaneous Approach (ICD-10-PCS; 2017-07-02)
PROC: 30233N1 Transfusion of Nonautologous Red Blood Cells into Peripheral Vein, Percutaneous Approach (ICD-10-PCS; 2017-07-02)
PROC: 0DTN0ZZ Resection of Sigmoid Colon, Open Approach (ICD-10-PCS; principal; 2017-07-04 13:30)
DX: A41.9 Sepsis, unspecified organism (principal); L89.151 Pressure ulcer of sacral region, stage 1; E11.22 Type 2 diabetes mellitus with diabetic chronic kidney disease; I12.0 Hypertensive chronic kidney disease with stage 5 chronic kidney disease or end stage renal disease; K57.20 Diverticulitis of large intestine with perforation and abscess without bleeding; E83.52 Hypercalcemia; N18.6 End stage renal disease; N39.0 Urinary tract infection, site not specified; E78.5 Hyperlipidemia, unspecified; E78.00 Pure hypercholesterolemia, unspecified; D63.1 Anemia in chronic kidney disease; Z94.0 Kidney transplant status; K59.00 Constipation, unspecified; K80.20 Calculus of gallbladder without cholecystitis without obstruction; K57.30 Diverticulosis of large intestine without perforation or abscess without bleeding; I87.1 Compression of vein; Z88.1 Allergy status to other antibiotic agents; Z91.041 Radiographic dye allergy status

== ENCOUNTER 2018-01-22 10:53 | Inpatient (IN) | payer MEDICAID ==
[2018-01-22 10:53] VITALS: BMI 20.5
--- NOTE | 2018-01-22 12:01 | ED PDOC ---
HPI: General Adult Time Seen by Provider: 01/22/18 11:35 Chief Complaint (Nursing): Trauma Chief Complaint (Provider): FALL History Per: Patient (62 Y/O H/O RENAL TRANSPLANT HERE FOR EVALUATION OF INJURIES S/P FALL. PATIENT STATES SHE HAS HAD FREQUENT FALLS DUE TO WEAKNESS S/ P SURGERY 2 MONTHS AGO. NOTES SHE HAS HAD UNSTEADY LEF KNEE THAT GIVES HER PAIN AND 'GIVES OUT' IT DID TODAY. NO LOC. WAS USING WALKER AT TIME. NOTES LOWER BACK PAIN.) Past Medical History Reviewed: Historical Data, Nursing Documentation, Vital Signs Vital Signs: Last Vital Signs Temp 98.9 F 01/22/18 16:38 Pulse 84 01/22/18 16:38 Resp 16 01/22/18 16:38 BP 144/82 01/22/18 16:38 Pulse Ox 100 01/22/18 16:38 - Medical History PMH: Anemia, Arthritis, Diabetes, Diverticulitis, HTN, Hypercholesterolemia, End Stage Renal Disease (s/p transplant), Chronic Kidney Disease Denies: HIV - Surgical History Surgical History: - Family History Family History: States: Unknown Family Hx - Home Medications Home Medications: Ambulatory Orders Medication Instructions Recorded Tacrolimus [Prograf] 5 mg PO BID 01/18/17 amLODIPine [Norvasc] 5 mg PO DAILY 01/18/17 predniSONE [predniSONE Tab] 5 mg PO DAILY 01/18/17 Mycophenolate [Cellcept Cap] 250 mg PO BID 03/10/17 Cinacalcet [Sensipar] 30 mg PO DAILY 04/06/17 Atorvastatin [Lipitor] 20 mg PO HS 06/27/17 Cholecalciferol [Vitamin D 1000 IU] 1 tab PO DAILY 06/27/17 Pantoprazole Sodium [Protonix] 40 mg PO DAILY 06/27/17 - Allergies Allergies/Adverse Reactions: Allergies Allergy/AdvReac Type Severity Reaction Status Date / Time cefazolin Allergy ITCHING Verified 06/27/17 09:48 iodine Allergy ITCHING Verified 06/27/17 09:48 vancomycin Allergy ITCHING Verified 06/27/17 09:48 Review of Systems ROS Statement: Except As Marked, All Systems Reviewed And Found Negative Physical Exam - Reviewed Nursing Documentation Reviewed: Yes Vital Signs Reviewed: Yes - Physical Exam Appears: Positive for: Well, Non-toxic, No Acute Distress Head Exam: Positive for: ATRAUMATIC, NORMAL INSPECTION, NORMOCEPHALIC Skin: Positive for: Normal Color, Warm, DRY Eye Exam: Positive for: EOMI, Normal appearance, PERRL ENT: Positive for: Normal ENT Inspection Neck: Positive for: Normal, Painless ROM Cardiovascular/Chest: Positive for: Regular Rate, Rhythm Respiratory: Positive for: CNT, Normal Breath Sounds Gastrointestinal/Abdominal: Positive for: Normal Exam, Soft Back: Positive for: Normal Inspection, Other (TENDERNESS LOWER SACRAL REGION) Extremity: Positive for: Normal ROM, Other (SKIN TEAR NOTED DORSUM OF LEFT HAND APPROX 1.5 CM) Neurologic/Psych: Positive for: Alert, Oriented - Laboratory Results Result Diagrams: 01/22/18 13:33 01/22/18 13:33 - ECG O2 Sat by Pulse Oximetry: 98 - Progress ED Course And Treament: Pateint does not want pain medication at this time. Will review xrys. wound irrigated. Xry of sacrum:History: Back injury. Comparison: Comparison is made to prior radiograph from 04/20/2017. Findings: Extremely limited study. No obvious displaced fracture of the sacrum. Intratrochanteric minimally displaced fracture of the right proximal femur. PE left femur not fully visualized. Extensive vascular calcifications. Impression: No obvious sacral fracture. However, displaced intertrochanteric fracture of the right proximal femur. xry of hip: Findings: Previously identified right intertrochanteric fracture not clearly seen. However, this could be positional. There is irregularity of the greater trochanter. Intertrochanteric fracture on the right seen better on the sacral radiograph done on the same day. Extensive vascular calcifications. Surgical clips in the right hemipelvis. Cross-sectional imaging should be obtained for better characterization. discussed results with patient. Agreeable for pain medication. Will start with morphine 1 mg iv x 1 dose d/w Dr. White. Will obtain CT of hip. ct hip right: Impression: Questionable small cortical step-off noted in the region of the right greater trochanter. This could represent a minimally displaced avulsion type fracture. If symptoms persists, MRI of the hips should be obtained. Discussed with CONNIE Godoy at approximately 4:30 p.m. on 01/22/2018. FAmily med resident aware of CT results Disposition - Clinical Impression Clinical Impression: Hand abrasion, Contusion, back, Hip fracture - Patient ED Disposition Is Patient to be Admitted: Yes - Disposition Disposition Time: 13:54 Condition: FAIR Procedure: Wound Repair - Time Performed Time Performed: 13:54 - Time Out Time Out: Site verified - Consent Obtained Consent obtained: Verbal - Performed by Performed by: Mid-level Provider - Indications Indication(s):: Avulsion - Location Location:: Left, Hand Shape:: Curvilinear Dimensions Length cm: 1.5 cm Depth:: Epidermis - Irrigated Irrigated with ml of normal saline: 150 - Wound repair method Raymon:: Tissue glue - Patient tolerated procedure Patient Tolerated Procedure:: Well
--- NOTE | 2018-01-22 12:33 | RAD ---
Sacrum History: Back injury. Comparison: Comparison is made to prior radiograph from 04/20/2017. Findings: Extremely limited study. No obvious displaced fracture of the sacrum. Intratrochanteric minimally displaced fracture of the right proximal femur. PE left femur not fully visualized. Extensive vascular calcifications. Impression: No obvious sacral fracture. However, displaced intertrochanteric fracture of the right proximal femur.
--- NOTE | 2018-01-22 12:37 | RAD ---
Right History: Pain. Right hip. Comparison: Cervical radiographs done on the same day. Technique: Two views of the right hip Findings: Previously identified right intertrochanteric fracture not clearly seen. However, this could be positional. There is irregularity of the greater trochanter. Intertrochanteric fracture on the right seen better on the sacral radiograph done on the same day. Extensive vascular calcifications. Surgical clips in the right hemipelvis. Cross-sectional imaging should be obtained for better characterization.
[2018-01-22 14:13] LABS: BASO % 0.3 % (0.0-2.0); EOS % 0.2 % (0.0-4.0); HEMOGLOBIN 11.9 g/dL (12.0-16.0); LYMPH # 1.5 K/uL (1.0-4.3); LYMPH % 10.7 % (20.0-40.0); MEAN CELL VOLUME 94.4 fl (81.0-99.0); MEAN CORPUSCULAR HGB CONC 31.8 g/dL (33.0-37.0); MEAN PLATELET VOLUME 8.3 fl (7.2-11.7); MONO # 0.7 K/uL (0.0-0.8); NEUT # 11.8 K/uL (1.8-7.0); NEUT % 83.8 % (50.0-75.0); NRBC % 0.1 % (0.0-0.0); RBC 3.96 Mil/uL (3.80-5.20); RED CELL DISTRIBUTION WIDTH 16.2 % (11.5-14.5); WHITE BLOOD COUNT 14.1 K/uL (4.8-10.8)
[2018-01-22 14:14] LABS: BLOOD UREA NITROGEN 21 mg/dl (7-17); CALCIUM 10.5 mg/dL (8.4-10.2); GFR AFRICAN-AMERICAN > 60; GFR NON-AFRICAN AMERICAN > 60
--- NOTE | 2018-01-22 14:28 | RAD ---
HISTORY: ROUTINE COMPARISON: 07/10/2017 FINDINGS: LUNGS: Minimal atelectasis versus scarring in the left costophrenic angle. PLEURA: No pneumothorax or pleural effusion. CARDIOVASCULAR: Stable cardiomediastinal silhouette. OSSEOUS STRUCTURES: Degenerative changes and osteopenia. VISUALIZED UPPER ABDOMEN: Limited evaluation. OTHER FINDINGS: Presumed vascular stents in bilateral axilla. IMPRESSION: Minimal atelectasis versus scarring in the left costophrenic angle.
[2018-01-22 14:42] LABS: PARTIAL THROMBOPLASTIN TIME 29.6 Seconds (25.6-37.1); PROTHROMBIN TIME 10.9 Seconds (9.8-13.1)
[2018-01-22] MEDS ORDERED: Sodium Chloride 0.45% 1,000 ML IV SCH (15:45)
[2018-01-22] MEDS ORDERED: Enoxaparin 40 mg Syringe SC SCH (15:45)
--- NOTE | 2018-01-22 16:29 | CP.PCM.HP ---
History of Present Illness - History of Present Illness History of Present Illness: cc: fall and "I have pain on my right leg" HPI: 62 yo pleasant lady with PMHx of CKD/ESRD s/p Kidney transplant in 2005, DM type 2, HTN , Hyperlipidemia, back pain, degenerative arthritis?, diverticulitis in the past with bowel sigmoid surgical resection last June. Patients was brought to ED by ambulance after having a fall at home today in AM , states she was in her room sitting in a chair and tried to get up and her left knee failed on her and fell to the floor and could not get up due to pain, denies LOC before or after the fall, sates she has problems with her L knee where it gives up on her ocassionally on standing, states she has been using a waker for the past 8 months after surgery due to debility and unsteady gait, she appears to have Hx of multiple falls, in july she was at a rehab center after the DC from the hospital due to deconditioning. Patient now c/o pain of Right leg that increases when she tries to turn over in bed,and also notes back pain, denies dizziness, palpitation or abdominal pain. PMD: Dr. Ryan Fried PMHx: HTN, DM type2?, CKD s/p kideny transplant in 2005, HTN, HLD, Back pain, DEgenerative arthritis, Hx of Diverticulitis S/p Sigmoid Bowel resction with rectal anastomosis in 06/2017, Unsteady Gait (uses Walker) MEDS: Tacrolimus 5 po qd, Norvasc 5 po qd, Prednisone 5 po qd, CellCept 250 po qd, Sensipar 30 po qd, Atorvastatin 20 po qd( stopped), Vitamin D 1000 IU qd, Protonix 40 po qd (stopped) Allergies: Vancomycin, Iodine, Cefazolin Social Hx: Negative for alcohol, tobacco, or dug use Family: Mother asthma, Father was on dialysis and of kidney problems LMP:53 yo Surgical HX: Ear Cyst surgery??, 2 C-Sections, Kidney transplant in 2005, Bowel Sigmoid resection 06/2017 Next of kin: son Tyrel Poon [phone] Code status: Full code ED course VS: BP 147/67 HR 69, T 99.2, O2 Sat 99% LABS: H/H 11.9/37.3 wbc 14.1, plt 187, creat 0.6, PT/INR 10.9/1.0 EKG: NSR, possible Left Atrial enlarge, possible undetermine anterior infarct CXR:minimal atelectasis vs scarring of L costophrenic angle HIP/ pelvic XR: dysplaced intertrocatheric fracture of prox femur Tx: Admission to hospital Present on Admission - Present on Admission Any Indicators Present on Admission: No Review of Systems - Constitutional Constitutional: As Per HPI - EENT Eyes: As Per HPI Ears: As Per HPI Nose/Mouth/Throat: As Per HPI - Cardiovascular Cardiovascular: As Per HPI. absent: Chest Pain, Chest Pain at Rest, Dyspnea, Edema, Leg Edema, Palpitations - Respiratory Respiratory: absent: Wheezing - Gastrointestinal Gastrointestinal: As Per HPI - Genitourinary Genitourinary: As Per HPI - Reproductive: Female Reproductive:Female: As Per HPI - Musculoskeletal Musculoskeletal: As Per HPI, Abnormal Gait (uses walker), Muscle Weakness - Integumentary Additional comments: some bruises noted in the upper emmanuelle seems caused by capillary fragility - Neurological Neurological: As Per HPI, Frequent Falls - Psychiatric Psychiatric: As Per HPI - Endocrine Endocrine: As Per HPI - Hematologic/Lymphatic Hematologic: As Per HPI Past Patient History - Infectious Disease Hx of Infectious Diseases: None - Past Medical History & Family History Past Medical History?: Yes - Past Social History Smoking Status: Never Smoked - CARDIAC Hx Hypercholesterolemia: Yes Hx Hypertension: Yes - PULMONARY Hx Respiratory Disorders: No - NEUROLOGICAL Hx Neurological Disorder: No - HEENT Hx HEENT Problems: No - RENAL Hx Chronic Kidney Disease: Yes - ENDOCRINE/METABOLIC Hx Endocrine Disorders: Yes Hx Diabetes Mellitus Type 2: Yes - HEMATOLOGICAL/ONCOLOGICAL Hx Anemia: Yes Hx Human Immunodeficiency Virus (HIV): No - INTEGUMENTARY Hx Dermatological Problems: No - MUSCULOSKELETAL/RHEUMATOLOGICAL Hx Arthritis: Yes - GASTROINTESTINAL Hx Diverticulitis: Yes - GENITOURINARY/GYNECOLOGICAL Hx Genitourinary Disorders: Yes Hx Urinary Tract Infection: Yes - PSYCHIATRIC Hx Psychophysiologic Disorder: No Hx Substance Use: No - SURGICAL HISTORY Hx Surgeries: Yes Hx Arteriovenous Shunt: Yes Hx Section: Yes (x2) Hx Vascular Access Device: Yes Other/Comment: RIGHT KIDNEY TRANSPLANT - ANESTHESIA Hx Anesthesia: Yes Hx Anesthesia Reactions: No Hx Malignant Hyperthermia: No Meds Allergies/Adverse Reactions: Allergies Allergy/AdvReac Type Severity Reaction Status Date / Time cefazolin Allergy ITCHING Verified 06/27/17 09:48 iodine Allergy ITCHING Verified 06/27/17 09:48 vancomycin Allergy ITCHING Verified 06/27/17 09:48 Physical Exam - Constitutional Appears: No Acute Distress - Head Exam Head Exam: ATRAUMATIC, NORMOCEPHALIC - Eye Exam Eye Exam: EOMI, PERRL - ENT Exam ENT Exam: Mucous Membranes Moist - Neck Exam Neck exam: Positive for: Full Rom - Respiratory Exam Respiratory Exam: Clear to Auscultation Bilateral. absent: Rales, Rhonchi, Wheezes - Cardiovascular Exam Cardiovascular Exam: REGULAR RHYTHM, +S1, +S2 - GI/Abdominal Exam GI & Abdominal Exam: Normal Bowel Sounds, Soft - Extremities Exam Extremities exam: Positive for: normal inspection, tenderness (LEft hip tenderness to movement of RLE), pedal pulses present Additional comments: No int or ext rotations of legs - Neurological Exam Neurological exam: Altered, Oriented x3 - Psychiatric Exam Psychiatric exam: Normal Affect, Normal Mood - Skin Skin Exam: Normal Color, Warm Results - Vital Signs Recent Vital Signs: Last Vital Signs Temp 99.2 F 01/22/18 10:57 Pulse 69 01/22/18 14:29 Resp 17 01/22/18 14:29 BP 147/67 01/22/18 14:29 Pulse Ox 99 01/22/18 14:23 - Labs Result Diagrams: 01/22/18 13:33 01/22/18 13:33 Labs: Laboratory Results - last 24 hr 01/22/18 01/22/18 01/22/18 13:33 13:33 13:33 WBC 14.1 H D RBC 3.96 Hgb 11.9 L Hct 37.3 MCV 94.4 MCH 30.0 MCHC 31.8 L RDW 16.2 H Plt Count 187 MPV 8.3 Neut % (Auto) 83.8 H Lymph % (Auto) 10.7 L [place] % (Auto) 5.0 Eos % (Auto) 0.2 Baso % (Auto) 0.3 Neut # (Auto) 11.8 H Lymph # (Auto) 1.5 [place] # (Auto) 0.7 Eos # (Auto) 0.0 Baso # (Auto) 0.0 PT 10.9 INR 1.0 APTT 29.6 Sodium 142 Potassium 4.5 Chloride 111 H Carbon Dioxide 21 L Anion Gap 15 BUN 21 H Creatinine 0.6 L Est GFR ( Amer) > 60 Est GFR (Non-Af Amer) > 60 Random Glucose 109 H Calcium 10.5 H BBK History Checked 01/22/18 15:24 WBC RBC Hgb Hct MCV MCH MCHC RDW Plt Count MPV Neut % (Auto) Lymph % (Auto) [place] % (Auto) Eos % (Auto) Baso % (Auto) Neut # (Auto) Lymph # (Auto) [place] # (Auto) Eos # (Auto) Baso # (Auto) PT INR APTT Sodium Potassium Chloride Carbon Dioxide Anion Gap BUN Creatinine Est GFR ( Amer) Est GFR (Non-Af Amer) Random Glucose Calcium BBK History Checked Patient has bt Assessment & Plan - Assessment and Plan (Free Text) Assessment: 62 yo female with Hx of multiple fall and PMHx of CKD/ESRD s/p Kidney transplant in 2005, DM, HTN , Hyperlipidemia, back pain, degenerative arthritis , diverticulitis in the past with bowel sigmoid surgical resection last June , she had a fall today in the AM and c/o pain and unable to walk or stand since the fall, brought to the ED will be admitted for suspected hip fracture. 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
--- NOTE | 2018-01-22 16:39 | CT ---
Right hip CT History: Possible right hip fracture. Comparison: Sacrum and hip radiograph from earlier on the same day. Technique: Contiguous axial images of the right garcia pelvis. No IV contrast given. Coronal and Sagittal reformats generated. Radiation dose: Total exam DLP = 207.42 mGy-cm. This CT exam was performed using one or more of the following dose reduction techniques: Automated exposure control, adjustment of the mA and/or kV according to patient size, and/or use of iterative reconstruction technique. Findings: Questionable small cortical step-off seen on image 125, series 604 in the right greater trochanter. The colon, urinary bladder, uterus and the rectum are partially visualized and suboptimally evaluated. Extensive vascular calcifications. Surgical clips in the right lower subcutaneous tissue. Impression: Questionable small cortical step-off noted in the region of the right greater trochanter. This could represent a minimally displaced avulsion type fracture. If symptoms persists, MRI of the hips should be obtained. Discussed with CONNIE Godoy at approximately 4:30 p.m. on 01/22/2018.
[2018-01-23 06:08] LABS: HEMOGLOBIN 11.4 g/dL (12.0-16.0); MEAN CELL VOLUME 93.2 fl (81.0-99.0); MEAN CORPUSCULAR HEMOGLOBIN 30.5 pg (27.0-31.0); MEAN CORPUSCULAR HGB CONC 32.7 g/dL (33.0-37.0); RBC 3.75 Mil/uL (3.80-5.20); RED CELL DISTRIBUTION WIDTH 15.8 % (11.5-14.5); WHITE BLOOD COUNT 8.5 K/uL (4.8-10.8)
[2018-01-23 06:50] LABS: ALB/GLOB RATIO 1.2 (1.0-2.1); ALBUMIN 3.7 g/dL (3.5-5.0); ALT/SGPT 18 U/L (9-52); AST/SGOT 31 U/L (14-36); BLOOD UREA NITROGEN 22 mg/dl (7-17); GFR AFRICAN-AMERICAN > 60; GFR NON-AFRICAN AMERICAN > 60
--- NOTE | 2018-01-23 08:34 | CARD ---
APPROVED REPORT EKG Measurement Heart [id number] PA [id number] [id number] <Conclusion> Normal sinus rhythm Possible Left atrial enlargement Possible Anterior infarct, age undetermined Abnormal ECG
[2018-01-23] MEDS: Pantoprazole 40 mg EC Tab PO SCH (10:08)
[2018-01-23] MEDS: Cholecalciferol 1,000 INTLU TAB PO SCH (10:09)
--- NOTE | 2018-01-23 10:47 | CP.PCM.PN ---
Subjective - Date & Time of Evaluation Date of Evaluation: 01/23/18 Time of Evaluation: 07:35 - Subjective Subjective: Patient seen and examined, lying in bed, NAD, denies right leg pain today while in bed, denies OJEDA, N/V/D, SOB, palpitations or chest pain. Patient states she is able to turn over to sides in bed with only mild discomfort right leg. Objective - Vital Signs/Intake and Output Vital Signs (last 24 hours): Temp Pulse Resp BP Pulse Ox 97.8 F 66 20 154/75 H 97 01/23/18 08:19 01/23/18 10:03 01/23/18 08:19 01/23/18 10:03 01/23/18 08:19 - Medications Medications: Current Medications Acetaminophen (Tylenol 325mg Tab) 650 mg PO Q6 PRN PRN Reason: Pain, Mild (1-3) Amlodipine Besylate (Norvasc) 5 mg PO DAILY [facility] Last Admin: 01/23/18 10:03 Dose: 5 mg Cholecalciferol (Vitamin D) 1,000 intlu PO DAILY [facility] Last Admin: 01/23/18 10:09 Dose: 1,000 intlu Cinacalcet (Sensipar) 30 mg PO DAILY [facility] Last Admin: 01/23/18 10:09 Dose: 30 mg Enoxaparin Sodium (Lovenox) 40 mg SC ONCE ONE PRN Reason: Protocol Stop: 01/23/18 17:01 Ketorolac Tromethamine (Toradol) 15 mg IVP Q6 PRN PRN Reason: Pain, moderate (4-7) Last Admin: 01/22/18 21:11 Dose: 15 mg Morphine Sulfate (Morphine) 2 mg IVP Q6 PRN PRN Reason: Pain, severe (8-10) Mycophenolate Mofetil (Cellcept Cap) 250 mg PO BID [facility] Last Admin: 01/23/18 10:03 Dose: 250 mg Ondansetron HCl (Zofran Inj) 4 mg IVP Q6 PRN PRN Reason: Nausea/Vomiting Pantoprazole Sodium (Protonix Ec Tab) 40 mg PO DAILY [facility] Last Admin: 01/23/18 10:08 Dose: 40 mg Prednisone (Prednisone Tab) 5 mg PO DAILY [facility] Last Admin: 01/23/18 10:05 Dose: 5 mg Tacrolimus (Prograf Cap) 5 mg PO BID [facility] Last Admin: 01/23/18 10:05 Dose: 5 mg - Labs Labs: 01/23/18 05:45 01/23/18 05:45 PT 10.9 Seconds (9.8-13.1) 01/22/18 13:33 INR 1.0 (0.9-1.2) 01/22/18 13:33 APTT 29.6 Seconds (25.6-37.1) 01/22/18 13:33 - Constitutional Appears: No Acute Distress - Head Exam Head Exam: NORMOCEPHALIC - Eye Exam Eye Exam: EOMI, PERRL - ENT Exam ENT Exam: Mucous Membranes Moist - Neck Exam Neck Exam: Full ROM - Respiratory Exam Respiratory Exam: Clear to Ausculation Bilateral. absent: Rales, Rhonchi, Wheezes - Cardiovascular Exam Cardiovascular Exam: REGULAR RHYTHM, +S1, +S2 - GI/Abdominal Exam GI & Abdominal Exam: Soft, Normal Bowel Sounds. absent: Tenderness - Extremities Exam Extremities Exam: Normal Inspection, Tenderness (mild tenderness to palpation of lateral aspect of proximal right thigh and hip area). absent: Pedal Edema - Neurological Exam Neurological Exam: Alert, Awake, Oriented x3 - Psychiatric Exam Psychiatric exam: Normal Affect, Normal Mood - Skin Skin Exam: Normal Color, Warm Assessment and Plan - Assessment and Plan (Free Text) Assessment: 62 yo pleasant lady with PMHx of CKD/ESRD s/p Kidney transplant in 2005, DM type 2, HTN , Hyperlipidemia, back pain, degenerative arthritis, diverticulitis with bowel sigmoid surgical resection last June, also with Hx of unsteady gait, received PT in july using a walker with hx of multiple falls, yesterday admitted s/p fall/and possible R hip fx. 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 Gill -w/c with home meds Tacrolimus, Cellcept, prednisone HTN -stable -Norvasc 5 po qd Hx of DM -stable -HbA1c 5.8 -No currently taking meds DIet -Heart health diet DVT PPX -Lovenox sc 40mg qd
--- NOTE | 2018-01-23 11:57 | CP.PCM.CON ---
History of Present Illness - History of Present Illness History of Present Illness: Orthopedic consultation Dr. Benz 62F complains of right hip, groin and low back pain after fall from standing. She denies pain in other extremities. Admits to skin tear to left hand that was glued. She has had falls recently, and has recent rehab admission for deconditioning. When asked to localize the pain, she points to outside of thigh and low back. Denies numbness/tingling. Denies change in bowel/bladder habits. Denies prior hip or back pain. Denies fever/chills/CP/SOB/dizziness/n/v Review of Systems - Review of Systems All systems: reviewed and no additional remarkable complaints except - Constitutional Additional comments: no fever/chills - Cardiovascular Cardiovascular: As Per HPI - Respiratory Respiratory: As Per HPI - Gastrointestinal Gastrointestinal: As Per HPI - Genitourinary Genitourinary: As Per HPI - Musculoskeletal Musculoskeletal: As Per HPI - Neurological Neurological: As Per HPI - Hematologic/Lymphatic Hematologic: absent: As Per HPI, Easy Bleeding, Easy Bruising, Lymphadenopathy, Other Past Patient History - Infectious Disease Hx of Infectious Diseases: None - Past Medical History & Family History Past Medical History?: Yes Past Family History: Reviewed and not pertinent - Past Social History Smoking Status: Never Smoked - CARDIAC Hx Hypercholesterolemia: Yes Hx Hypertension: Yes - PULMONARY Hx Respiratory Disorders: No - NEUROLOGICAL Hx Neurological Disorder: No - HEENT Hx HEENT Problems: Yes Hx Glaucoma: Yes - RENAL Hx Chronic Kidney Disease: Yes - ENDOCRINE/METABOLIC Hx Endocrine Disorders: Yes Hx Diabetes Mellitus Type 2: Yes - HEMATOLOGICAL/ONCOLOGICAL Hx Anemia: Yes Hx Human Immunodeficiency Virus (HIV): No - INTEGUMENTARY Hx Dermatological Problems: No - MUSCULOSKELETAL/RHEUMATOLOGICAL Hx Arthritis: Yes - GASTROINTESTINAL Hx Diverticulitis: Yes - GENITOURINARY/GYNECOLOGICAL Hx Genitourinary Disorders: Yes Hx Urinary Tract Infection: Yes - PSYCHIATRIC Hx Psychophysiologic Disorder: No Hx Substance Use: No - SURGICAL HISTORY Hx Surgeries: Yes Hx Arteriovenous Shunt: Yes Hx Section: Yes (x2) Hx Kidney Transplant: Yes Hx Vascular Access Device: Yes Other/Comment: RIGHT KIDNEY TRANSPLANT - ANESTHESIA Hx Anesthesia: Yes Hx Anesthesia Reactions: No Hx Malignant Hyperthermia: No Meds Allergies/Adverse Reactions: Allergies Allergy/AdvReac Type Severity Reaction Status Date / Time cefazolin Allergy ITCHING Verified 06/27/17 09:48 iodine Allergy ITCHING Verified 06/27/17 09:48 vancomycin Allergy ITCHING Verified 06/27/17 09:48 - Medications Medications: Current Medications Acetaminophen (Tylenol 325mg Tab) 650 mg PO Q6 PRN PRN Reason: Pain, Mild (1-3) Amlodipine Besylate (Norvasc) 5 mg PO DAILY [facility] Last Admin: 01/23/18 10:03 Dose: 5 mg Cholecalciferol (Vitamin D) 1,000 intlu PO DAILY [facility] Last Admin: 01/23/18 10:09 Dose: 1,000 intlu Cinacalcet (Sensipar) 30 mg PO DAILY [facility] Last Admin: 01/23/18 10:09 Dose: 30 mg Enoxaparin Sodium (Lovenox) 40 mg SC ONCE ONE PRN Reason: Protocol Stop: 01/23/18 17:01 Ketorolac Tromethamine (Toradol) 15 mg IVP Q6 PRN PRN Reason: Pain, moderate (4-7) Last Admin: 01/22/18 21:11 Dose: 15 mg Morphine Sulfate (Morphine) 2 mg IVP Q6 PRN PRN Reason: Pain, severe (8-10) Mycophenolate Mofetil (Cellcept Cap) 250 mg PO BID [facility] Last Admin: 01/23/18 10:03 Dose: 250 mg Ondansetron HCl (Zofran Inj) 4 mg IVP Q6 PRN PRN Reason: Nausea/Vomiting Pantoprazole Sodium (Protonix Ec Tab) 40 mg PO DAILY [facility] Last Admin: 01/23/18 10:08 Dose: 40 mg Prednisone (Prednisone Tab) 5 mg PO DAILY [facility] Last Admin: 01/23/18 10:05 Dose: 5 mg Tacrolimus (Prograf Cap) 5 mg PO BID [facility] Last Admin: 01/23/18 10:05 Dose: 5 mg Physical Exam - Constitutional Appears: Well (sensation intact BLE), No Acute Distress - Head Exam Head Exam: ATRAUMATIC - Neck Exam Neck exam: Positive for: Full Rom, Normal Inspection - Respiratory Exam Respiratory Exam: NORMAL BREATHING PATTERN - Expanded Lower Extremities Exam Right Hip exam: full ROM (no swelling/discoloration, complains of back pain with hip ROM, full AROM, no pain with log roll, PROM ext/int rotation, axial loading, neg SLR) Neuro vacular tendon exam: no vascular compromise (sensation intact BLE, calves osft NT neg homans) - Expanded Back Exam Expanded Back exam: Negative Straight Leg Raising: Left, Right - Neurological Exam Neurological exam: Alert, Oriented x3 - Expanded Neurological Exam Expanded Sensory exam: Upper Extremity Light Touch: Normal Neuro motor strength exam: Left Upper Extremity: 5, Left Lower Extremity: 5, Right Lower Extremity: 5 (+DF/PF, knee flex/ext, great toe ext) - Psychiatric Exam Psychiatric exam: Normal Affect, Normal Mood - Skin Skin Exam: Dry, Intact, Normal Color, Warm Results - Vital Signs Recent Vital Signs: Last Vital Signs Temp 97.8 F 01/23/18 08:19 Pulse 66 01/23/18 10:03 Resp 20 01/23/18 08:19 BP 154/75 H 01/23/18 10:03 Pulse Ox 97 01/23/18 08:19 - Labs Result Diagrams: 01/23/18 05:45 01/23/18 05:45 Labs: Laboratory Results - last 24 hr 01/22/18 01/22/18 01/22/18 13:33 13:33 13:33 WBC 14.1 H D RBC 3.96 Hgb 11.9 L Hct 37.3 MCV 94.4 MCH 30.0 MCHC 31.8 L RDW 16.2 H Plt Count 187 MPV 8.3 Neut % (Auto) 83.8 H Lymph % (Auto) 10.7 L [place] % (Auto) 5.0 Eos % (Auto) 0.2 Baso % (Auto) 0.3 Neut # (Auto) 11.8 H Lymph # (Auto) 1.5 [place] # (Auto) 0.7 Eos # (Auto) 0.0 Baso # (Auto) 0.0 PT 10.9 INR 1.0 APTT 29.6 Sodium 142 Potassium 4.5 Chloride 111 H Carbon Dioxide 21 L Anion Gap 15 BUN 21 H Creatinine 0.6 L Est GFR ( Amer) > 60 Est GFR (Non-Af Amer) > 60 Random Glucose 109 H Calcium 10.5 H Total Bilirubin AST ALT Alkaline Phosphatase Total Protein Albumin Globulin Albumin/Globulin Ratio Blood Type Antibody Screen BBK History Checked 01/22/18 01/23/18 01/23/18 15:24 05:45 05:45 WBC 8.5 RBC 3.75 L Hgb 11.4 L Hct 34.9 MCV 93.2 MCH 30.5 MCHC 32.7 L RDW 15.8 H Plt Count 176 MPV Neut % (Auto) Lymph % (Auto) [place] % (Auto) Eos % (Auto) Baso % (Auto) Neut # (Auto) Lymph # (Auto) [place] # (Auto) Eos # (Auto) Baso # (Auto) PT INR APTT Sodium 142 Potassium 3.6 Chloride 107 Carbon Dioxide 25 Anion Gap 14 BUN 22 H Creatinine 0.9 Est GFR ( Amer) > 60 Est GFR (Non-Af Amer) > 60 Random Glucose 81 Calcium 10.0 Total Bilirubin 0.6 AST 31 ALT 18 Alkaline Phosphatase 70 Total Protein 6.8 Albumin 3.7 Globulin 3.1 Albumin/Globulin Ratio 1.2 Blood Type O POSITIVE Antibody Screen Negative BBK History Checked Patient has bt - Impressions Impression: Accession No. : [id number] Patient Name / ID : ANKUR JIMENEZ Christin / [id number] Exam Date : 01/22/2018 11:48:45 ( Approved ) Study Comment : Sex / Age : F / 62Y Creator : leo wei Dictator : Shannan Kidd MD Logistics Solution Manager : Pack Master : Shannan Kidd MD Approver2 : Report Date : 01/22/2018 12:10:42 My Comment : Right History: Pain. Right hip. Comparison: Cervical radiographs done on the same day. Technique: Two views of the right hip Findings: Previously identified right intertrochanteric fracture not clearly seen. However, this could be positional. There is irregularity of the greater trochanter. Intertrochanteric fracture on the right seen better on the sacral radiograph done on the same day. Extensive vascular calcifications. Surgical clips in the right hemipelvis. Cross-sectional imaging should be obtained for better characterization. atient Name / ID : ANKUR JIMENEZ Christin / [id number] Exam Date : 01/22/2018 11:53:12 ( Approved ) Study Comment : Sex / Age : Creator : leo wei Dictator : Shannan Kidd MD Logistics Solution Manager : Pack Master : Shannan Kidd MD Approver2 : Report Date : 01/22/2018 12:10:42 My Comment : Sacrum History: Back injury. Comparison: Comparison is made to prior radiograph from 04/20/2017. Findings: Extremely limited study. No obvious displaced fracture of the sacrum. Intratrochanteric minimally displaced fracture of the right proximal femur. PE left femur not fully visualized. Extensive vascular calcifications. Impression: No obvious sacral fracture. However, displaced intertrochanteric fracture of the right proximal femur. Patient Name / ID : ANKUR JIMENEZ D / [id number] Exam Date : 01/22/2018 15:33:22 ( Approved ) Study Comment : Sex / Age : Creator : Shannan Kidd MD Dictator : Shannan Kidd MD Logistics Solution Manager : Pack Master : Shannan Kidd MD Approver2 : Report Date : 01/22/2018 16:38:03 My Comment : Right hip CT History: Possible right hip fracture. Comparison: Sacrum and hip radiograph from earlier on the same day. Technique: Contiguous axial images of the right garcia pelvis. No IV contrast given. Coronal and Sagittal reformats generated. Radiation dose: Total exam DLP = 207.42 mGy-cm. This CT exam was performed using one or more of the following dose reduction techniques: Automated exposure control, adjustment of the mA and/or kV according to patient size, and/or use of iterative reconstruction technique. Findings: Questionable small cortical step-off seen on image 125, series 604 in the right greater trochanter. The colon, urinary bladder, uterus and the rectum are partially visualized and suboptimally evaluated. Extensive vascular calcifications. Surgical clips in the right lower subcutaneous tissue. Impression: Questionable small cortical step-off noted in the region of the right greater trochanter. This could represent a minimally displaced avulsion type fracture. If symptoms persists, MRI of the hips should be obtained. Discussed with PA Jayne at approximately 4:30 p.m. on 01/22/2018. Assessment & Plan (1) Nondisplaced fracture of greater trochanter of right femur Assessment and Plan: CT scan appreciated, no intertrochanteric fracture appreciated. Noted is suggestion of greater trochanteric fracture, which is tender and consistent with exam non operative no active abduction of hip PT/OT after lumbar spine imaging VTE proph SCD d/w Dr. Benz, agrees with above Status: Acute (2) Low back pain Assessment and Plan: after fall lumbar spine xrays ordered plan for PT if negative addendum: awaiting official reading of lumbar spine films, however noted L1 and L2 and possibly L3 vertebral compression fractures. Unclear acuity. Recommend spine/neurosurgery consultation, MRI lumbar spine, outside of scope of practice of Dr. Benz Status: Acute
--- NOTE | 2018-01-23 13:54 | RAD ---
PROCEDURE: Radiographs of the Lumbar Spine. HISTORY: fall, low back pain COMPARISON: 04/20/2017. FINDINGS: BONES: Diffuse osteopenia. Loss of height of multiple lumbar vertebral bodies. This includes progressive loss of height of L2. DISC SPACES: Unremarkable. Non marginal osteophyte formation is stable. OTHER FINDINGS: None. IMPRESSION: Progressive loss of height L2 vertebral body. Stable findings with respect of L1 compression deformity.
[2018-01-23] MEDS ORDERED: Enoxaparin 40 mg Syringe SC ONE (17:00)
--- NOTE | 2018-01-24 00:03 | CP.PCM.CON ---
History of Present Illness - History of Present Illness History of Present Illness: REASONS FOR CONSULTATION : S/P RENAL TRANSPLANT 2006 .. TERTIARY HYPER PARATHYROIDISM PT IS WELL KNOWN TO ME FOR MANY YEARS WITH MMP . ESRD WAS ON HD X 5 YEARS BEFORE RECIEVING A CADAVER RENAL TRANSPLANT HPI: 62 yo pleasant lady with PMHx of CKD/ESRD s/p Kidney transplant in 2005, DM type 2, HTN , Hyperlipidemia, back pain, degenerative arthritis?, diverticulitis in the past with bowel sigmoid surgical resection last June. Patients was brought to ED by ambulance after having a fall at home today in AM , states she was in her room sitting in a chair and tried to get up and her left knee failed on her and fell to the floor and could not get up due to pain, denies LOC before or after the fall, sates she has problems with her L knee where it gives up on her ocassionally on standing, states she has been using a waker for the past 8 months after surgery due to debility and unsteady gait, she appears to have Hx of multiple falls, in july she was at a rehab center after the DC from the hospital due to deconditioning. Patient now c/o pain of Right leg that increases when she tries to turn over in bed,and also notes back pain, denies dizziness, palpitation or abdominal pain. PMD: Dr. Ryan Fried PMHx: HTN, DM type2?, CKD s/p kideny transplant in 2005, HTN, HLD, Back pain, DEgenerative arthritis, Hx of Diverticulitis S/p Sigmoid Bowel resction with rectal anastomosis in 06/2017, Unsteady Gait (uses Walker) MEDS: Tacrolimus 5 po qd, Norvasc 5 po qd, Prednisone 5 po qd, CellCept 250 po qd, Sensipar 30 po qd, Atorvastatin 20 po qd( stopped), Vitamin D 1000 IU qd, Protonix 40 po qd (stopped) Allergies: Vancomycin, Iodine, Cefazolin Social Hx: Negative for alcohol, tobacco, or dug use Family: Mother asthma, Father was on dialysis and of kidney problems LMP:53 yo Surgical HX: Ear Cyst surgery??, 2 C-Sections, Kidney transplant in 2005, Bowel Sigmoid resection 06/2017 Next of kin: son Tyrel Poon [phone] Code status: Full code ED course VS: BP 147/67 HR 69, T 99.2, O2 Sat 99% LABS: H/H 11.9/37.3 wbc 14.1, plt 187, creat 0.6, PT/INR 10.9/1.0 EKG: NSR, possible Left Atrial enlarge, possible undetermine anterior infarct CXR:minimal atelectasis vs scarring of L costophrenic angle HIP/ pelvic XR: dysplaced intertrocatheric fracture of prox femur Tx: Admission to hospital Past Patient History - Infectious Disease Hx of Infectious Diseases: None - Past Medical History & Family History Past Medical History?: Yes Past Family History: Reviewed and not pertinent - Past Social History Smoking Status: Never Smoked - CARDIAC Hx Hypercholesterolemia: Yes Hx Hypertension: Yes - PULMONARY Hx Respiratory Disorders: No - NEUROLOGICAL Hx Neurological Disorder: No - HEENT Hx HEENT Problems: Yes Hx Glaucoma: Yes - RENAL Hx Chronic Kidney Disease: Yes - ENDOCRINE/METABOLIC Hx Endocrine Disorders: Yes Hx Diabetes Mellitus Type 2: Yes - HEMATOLOGICAL/ONCOLOGICAL Hx Anemia: Yes Hx Human Immunodeficiency Virus (HIV): No - INTEGUMENTARY Hx Dermatological Problems: No - MUSCULOSKELETAL/RHEUMATOLOGICAL Hx Arthritis: Yes - GASTROINTESTINAL Hx Diverticulitis: Yes - GENITOURINARY/GYNECOLOGICAL Hx Genitourinary Disorders: Yes Hx Urinary Tract Infection: Yes - PSYCHIATRIC Hx Psychophysiologic Disorder: No Hx Substance Use: No - SURGICAL HISTORY Hx Surgeries: Yes Hx Arteriovenous Shunt: Yes Hx Section: Yes (x2) Hx Kidney Transplant: Yes Hx Vascular Access Device: Yes Other/Comment: RIGHT KIDNEY TRANSPLANT - ANESTHESIA Hx Anesthesia: Yes Hx Anesthesia Reactions: No Hx Malignant Hyperthermia: No Meds Allergies/Adverse Reactions: Allergies Allergy/AdvReac Type Severity Reaction Status Date / Time cefazolin Allergy ITCHING Verified 06/27/17 09:48 iodine Allergy ITCHING Verified 06/27/17 09:48 vancomycin Allergy ITCHING Verified 06/27/17 09:48 - Medications Medications: Current Medications Acetaminophen (Tylenol 325mg Tab) 650 mg PO Q6 PRN PRN Reason: Pain, Mild (1-3) Amlodipine Besylate (Norvasc) 5 mg PO DAILY [facility] Last Admin: 01/23/18 10:03 Dose: 5 mg Cholecalciferol (Vitamin D) 1,000 intlu PO DAILY [facility] Last Admin: 01/23/18 10:09 Dose: 1,000 intlu Cinacalcet (Sensipar) 30 mg PO DAILY [facility] Last Admin: 01/23/18 10:09 Dose: 30 mg Ketorolac Tromethamine (Toradol) 15 mg IVP Q6 PRN PRN Reason: Pain, moderate (4-7) Last Admin: 01/22/18 21:11 Dose: 15 mg Morphine Sulfate (Morphine) 2 mg IVP Q6 PRN PRN Reason: Pain, severe (8-10) Mycophenolate Mofetil (Cellcept Cap) 250 mg PO BID [facility] Last Admin: 01/23/18 19:48 Dose: 250 mg Ondansetron HCl (Zofran Inj) 4 mg IVP Q6 PRN PRN Reason: Nausea/Vomiting Last Admin: 01/23/18 12:44 Dose: 4 mg Pantoprazole Sodium (Protonix Ec Tab) 40 mg PO DAILY [facility] Last Admin: 01/23/18 10:08 Dose: 40 mg Prednisone (Prednisone Tab) 5 mg PO DAILY [facility] Last Admin: 01/23/18 10:05 Dose: 5 mg Tacrolimus (Prograf Cap) 5 mg PO BID [facility] Last Admin: 01/23/18 19:48 Dose: 5 mg Results - Vital Signs Recent Vital Signs: Last Vital Signs Temp 98.9 F 01/23/18 16:33 Pulse 70 01/23/18 16:33 Resp 20 01/23/18 16:33 BP 165/73 H 01/23/18 16:33 Pulse Ox 96 01/23/18 16:33 - Labs Result Diagrams: 01/23/18 05:45 01/23/18 05:45 Labs: Laboratory Results - last 24 hr 01/23/18 01/23/18 05:45 05:45 WBC 8.5 RBC 3.75 L Hgb 11.4 L Hct 34.9 MCV 93.2 MCH 30.5 MCHC 32.7 L RDW 15.8 H Plt Count 176 Sodium 142 Potassium 3.6 Chloride 107 Carbon Dioxide 25 Anion Gap 14 BUN 22 H Creatinine 0.9 Est GFR ( Amer) > 60 Est GFR (Non-Af Amer) > 60 Random Glucose 81 Calcium 10.0 Total Bilirubin 0.6 AST 31 ALT 18 Alkaline Phosphatase 70 Total Protein 6.8 Albumin 3.7 Globulin 3.1 Albumin/Globulin Ratio 1.2 Assessment & Plan - Assessment and Plan (Free Text) Assessment: ESRD .. S/P RENAL THX .. RENAL FUNCTION GOOD TERTIARRY HYPER PARATHYROIDISM .. S/P FALL WITH HIP FRACTURE MMP P : C/O SAME IMMUNOSUPPRESIVE MEDS CHECK PTH LEVEL AND VIT D LEVEL C/O WITH SENSIPAR ORTHO CONSULT .. DONE WILL F/U WITH YOU - Date & Time Date: 01/23/18 Time: 15:00
[2018-01-24 06:25] LABS: HEMOGLOBIN 11.9 g/dL (12.0-16.0); MEAN CELL VOLUME 92.6 fl (81.0-99.0); MEAN CORPUSCULAR HEMOGLOBIN 30.9 pg (27.0-31.0); MEAN CORPUSCULAR HGB CONC 33.4 g/dL (33.0-37.0); RBC 3.84 Mil/uL (3.80-5.20); RED CELL DISTRIBUTION WIDTH 15.5 % (11.5-14.5)
[2018-01-24 07:48] LABS: ALB/GLOB RATIO 1.2 (1.0-2.1); ALBUMIN 3.9 g/dL (3.5-5.0); ALT/SGPT 16 U/L (9-52); AST/SGOT 15 U/L (14-36); BLOOD UREA NITROGEN 16 mg/dl (7-17); CALCIUM 10.3 mg/dL (8.4-10.2); GFR AFRICAN-AMERICAN > 60; GFR NON-AFRICAN AMERICAN > 60
--- NOTE | 2018-01-24 08:22 | CP.PCM.PN ---
Subjective - Date & Time of Evaluation Date of Evaluation: 01/24/18 Time of Evaluation: 08:20 - Subjective Subjective: Patient states she feels the same pain. Patient did not have PT yet ysterday. Denies numbness/tingling/new pain/weakness/CP/SOB/dizziness/n/v/ Review of Systems - Review of Systems All systems: reviewed and no additional remarkable complaints except - Cardiovascular Cardiovascular: As Per HPI - Respiratory Respiratory: As Per HPI - Gastrointestinal Gastrointestinal: As Per HPI - Musculoskeletal Musculoskeletal: As Par HPI - Integumentary Integumentary: UNREMARKABLE - Neurological Neurological: As Per HPI - Hematologic/Lymphatic Hematologic: UNREMARKABLE Objective - Vital Signs/Intake and Output Vital Signs (last 24 hours): Temp Pulse Resp BP Pulse Ox 98.1 F 78 19 148/66 97 01/24/18 00:00 01/24/18 00:00 01/24/18 00:00 01/24/18 00:00 01/24/18 00:00 - Medications Medications: Current Medications Acetaminophen (Tylenol 325mg Tab) 650 mg PO Q6 PRN PRN Reason: Pain, Mild (1-3) Amlodipine Besylate (Norvasc) 5 mg PO DAILY [facility] Last Admin: 01/23/18 10:03 Dose: 5 mg Cholecalciferol (Vitamin D) 1,000 intlu PO DAILY [facility] Last Admin: 01/23/18 10:09 Dose: 1,000 intlu Cinacalcet (Sensipar) 30 mg PO DAILY [facility] Last Admin: 01/23/18 10:09 Dose: 30 mg Ketorolac Tromethamine (Toradol) 15 mg IVP Q6 PRN PRN Reason: Pain, moderate (4-7) Last Admin: 01/22/18 21:11 Dose: 15 mg Morphine Sulfate (Morphine) 2 mg IVP Q6 PRN PRN Reason: Pain, severe (8-10) Mycophenolate Mofetil (Cellcept Cap) 250 mg PO BID [facility] Last Admin: 01/23/18 19:48 Dose: 250 mg Ondansetron HCl (Zofran Inj) 4 mg IVP Q6 PRN PRN Reason: Nausea/Vomiting Last Admin: 01/23/18 12:44 Dose: 4 mg Pantoprazole Sodium (Protonix Ec Tab) 40 mg PO DAILY [facility] Last Admin: 01/23/18 10:08 Dose: 40 mg Prednisone (Prednisone Tab) 5 mg PO DAILY [facility] Last Admin: 01/23/18 10:05 Dose: 5 mg Tacrolimus (Prograf Cap) 5 mg PO BID [facility] Last Admin: 01/23/18 19:48 Dose: 5 mg - Labs Labs: 01/24/18 05:35 01/24/18 05:35 PT 10.9 Seconds (9.8-13.1) 01/22/18 13:33 INR 1.0 (0.9-1.2) 01/22/18 13:33 APTT 29.6 Seconds (25.6-37.1) 01/22/18 13:33 - Constitutional Appears: Well, No Acute Distress - Head Exam Head Exam: ATRAUMATIC - Neck Exam Neck Exam: Full ROM, Normal Inspection - Respiratory Exam Respiratory Exam: NORMAL BREATHING PATTERN - Extremities Exam Additional comments: TTP over greater trochanter calves soft NT neg homans sensation intact BLE - Neurological Exam Neurological Exam: Alert, Awake, Oriented x3 Neuro motor strength exam: Left Lower Extremity: 5, Right Lower Extremity: 5 - Psychiatric Exam Psychiatric exam: Normal Affect, Normal Mood - Skin Skin Exam: Dry, Intact, Normal Color, Warm Assessment and Plan (1) Nondisplaced fracture of greater trochanter of right femur Assessment & Plan: non operative PT/OT no active abduction of right leg encourage OOB VTE proph d/w Dr. Benz, agrees with above Status: Acute (2) Low back pain Status: Acute (3) Lumbar compression fracture Assessment & Plan: ?acute on chronic, progressive loss of L2 height patient states she had not seen security incident response specialist in pain new MRI ordered recommend spine consultation Status: Acute Radiology Interpretation - Radiology Interpretation #3 Interpretation: Patient Name / ID : ANKUR JIMENEZ / [id number] Exam Date : 01/23/2018 13:36:40 ( Approved ) Study Comment : Sex / Age : F / 62Y Creator : Sylvester Tolbert MD Dictator : Sylvester Tolbert MD Green Chain Puller : Enterprise Systems Architect : Sylvester Tolbert MD Approver2 : Report Date : 01/23/2018 13:53:09 My Comment : PROCEDURE: Radiographs of the Lumbar Spine. HISTORY: fall, low back pain COMPARISON: 04/20/2017. FINDINGS: BONES: Diffuse osteopenia. Loss of height of multiple lumbar vertebral bodies. This includes progressive loss of height of L2. DISC SPACES: Unremarkable. Non marginal osteophyte formation is stable. OTHER FINDINGS: None. IMPRESSION: Progressive loss of height L2 vertebral body. Stable findings with respect of L1 compression deformity.
--- NOTE | 2018-01-24 09:30 | CP.PCM.PN ---
Subjective - Date & Time of Evaluation Date of Evaluation: 01/24/18 Time of Evaluation: 07:35 - Subjective Subjective: Patient seen and examined, NAD, c/o mild discomfort to the lat aspect of RLE and hip, but states she is able to turn over in bed with only mild discomfort. C /o N/V yesterday when she tried to eat in the afternoon (after her diet was resumed), states nurse gave her medication and nausea resolved, today denies N/V /D. Objective - Vital Signs/Intake and Output Vital Signs (last 24 hours): Temp Pulse Resp BP Pulse Ox 98.3 F 80 20 150/67 97 01/24/18 08:25 01/24/18 08:25 01/24/18 08:25 01/24/18 08:25 01/24/18 08:25 - Medications Medications: Current Medications Acetaminophen (Tylenol 325mg Tab) 650 mg PO Q6 PRN PRN Reason: Pain, Mild (1-3) Amlodipine Besylate (Norvasc) 5 mg PO DAILY [facility] Last Admin: 01/23/18 10:03 Dose: 5 mg Cholecalciferol (Vitamin D) 1,000 intlu PO DAILY [facility] Last Admin: 01/23/18 10:09 Dose: 1,000 intlu Cinacalcet (Sensipar) 30 mg PO DAILY [facility] Last Admin: 01/23/18 10:09 Dose: 30 mg Enoxaparin Sodium (Lovenox) 40 mg SC DAILY [facility] PRN Reason: Protocol Ketorolac Tromethamine (Toradol) 15 mg IVP Q6 PRN PRN Reason: Pain, moderate (4-7) Last Admin: 01/22/18 21:11 Dose: 15 mg Morphine Sulfate (Morphine) 2 mg IVP Q6 PRN PRN Reason: Pain, severe (8-10) Mycophenolate Mofetil (Cellcept Cap) 250 mg PO BID [facility] Last Admin: 01/23/18 19:48 Dose: 250 mg Ondansetron HCl (Zofran Inj) 4 mg IVP Q6 PRN PRN Reason: Nausea/Vomiting Last Admin: 01/23/18 12:44 Dose: 4 mg Pantoprazole Sodium (Protonix Ec Tab) 40 mg PO DAILY [facility] Last Admin: 01/23/18 10:08 Dose: 40 mg Prednisone (Prednisone Tab) 5 mg PO DAILY [facility] Last Admin: 01/23/18 10:05 Dose: 5 mg Tacrolimus (Prograf Cap) 5 mg PO BID [facility] Last Admin: 01/23/18 19:48 Dose: 5 mg - Labs Labs: 01/24/18 05:35 01/24/18 05:35 PT 10.9 Seconds (9.8-13.1) 01/22/18 13:33 INR 1.0 (0.9-1.2) 01/22/18 13:33 APTT 29.6 Seconds (25.6-37.1) 01/22/18 13:33 - Constitutional Appears: No Acute Distress - Head Exam Head Exam: ATRAUMATIC, NORMOCEPHALIC - Eye Exam Eye Exam: EOMI, PERRL - ENT Exam ENT Exam: Mucous Membranes Moist - Respiratory Exam Respiratory Exam: Clear to Ausculation Bilateral. absent: Rales, Rhonchi, Wheezes - Cardiovascular Exam Cardiovascular Exam: REGULAR RHYTHM, +S1, +S2 - GI/Abdominal Exam GI & Abdominal Exam: Soft, Normal Bowel Sounds - Extremities Exam Extremities Exam: Tenderness Additional comments: tenderness to palp of lat aspect of RLE - Back Exam Back Exam: tenderness (tenderness to palp of lumbar spine) - Neurological Exam Neurological Exam: Alert, Awake, Oriented x3 - Psychiatric Exam Psychiatric exam: Normal Affect, Normal Mood - Skin Skin Exam: Normal Color, Warm Assessment and Plan - Assessment and Plan (Free Text) Assessment: 62 yo pleasant lady with PMHx of CKD/ESRD s/p Kidney transplant in 2005, DM type 2, HTN , Hyperlipidemia, back pain, degenerative arthritis, diverticulitis with bowel sigmoid surgical resection last June, unsteady gait (uses walker) , frequent falls. Patient seen by her hooker laster Dr. Gill f/u recommendations. MRI of lumbar spine from 05/07 retrieved ( see impression report), Patient seen by ortho and clear to intiate PT. Plan: Nondysplaced fracture of greater trochanter of right femur -Ortho surgery on board -non-operative, patient cleared for PT by Ortho -cleared to start PT/OT -will f/u ortho consult -pain magement tylenol mild pain 650 mg po prn -toradol 15 mg ivp prn moderate pain -morphine 2 mg prn severe pain -zofran prn nausea, -f/u AM labs CKD/ESRD S/p Kidney transplant -stable -BUN/Cr 0.7/16 today -Outpatient hooker laster Dr. Gill -Nephro consult Dr. Gill on board -w/c with home meds Tacrolimus, Cellcept, prednisone -Labs PTH, Vit D level ordered pending results Back pain/Hx of previous lumbar compression fracture -( impression report of 05/07 Lumbar spine MRI: 1. Acute superior endplate compression deformity in the L1 vertebral body with approximately 30 percent loss of anterior vertebral height. No retropulsion or spinal canal stenosis. 2. Acute mild superior endplate compression deformity in the L2 vertebral body. No retropulsion or spinal canal stenosis. 3. Old superior endplate compression deformity in the L3 vertebral body. 4. Multilevel degenerative disc disease, worse at L3-4 with a diffuse posterior bulge and superimposed right posterolateral and foraminal disc protrusions which abut the exiting right L3 nerve root. Mild bilateral facet arthropathy contribute to moderate to severe right and moderate left neural foraminal stenosis). -Repeat Lumbar spine MRI pending results -Pain control -will consult Neurosurgery Leukocytosis -resolved -afebrile -using prednisone -Stress 2/2 to recent fall HTN -stable -Norvasc 5 po qd Hx of DM -stable -HbA1c 5.8 -No currently taking meds DIet -Heart health diet DVT PPX -Lovenox sc 40mg qd
[2018-01-24] MEDS: Pantoprazole 40 mg EC Tab PO SCH (10:13)
[2018-01-24] MEDS: Cholecalciferol 1,000 INTLU TAB PO SCH (10:14)
--- NOTE | 2018-01-24 12:49 | MRI ---
PROCEDURE: MR LUMBAR SPINE WITHOUT CONTRAST HISTORY: lumbar compression fractures, LBP after fall COMPARISON: Lumbar spine MRI 04/22/2017, lumbar spine radiographs 01/23/[address] 06/27/2017. TECHNIQUE: Multiecho multiplanar sequences were performed through the lumbar spine without the use of intravenous contrast. FINDINGS: Normal lumbar lordosis. Lumbar compression fractures are anteriorly wedged and are chronic with no edema at this time. No fragmentation. L1 is anteriorly wedged on a moderate basis with L2 mildly wedged anteriorly and L3 mildly wedged anteriorly with, a comminution of Schmorl's node the depressing the upper endplates centrally. Rounded Marrow signal changes are identified at the L4 vertebral body toward the right with incomplete fat suppression compatible with a an atypical benign hemangioma. This is well seen in prior and pelvis CT 06/27/2017 and lumbar spine MRI 04/22/2017. No significant interval change other than increased fat suppression currently an additional benign hemangioma seen approaching the right pedicle at L4 which completely suppresses in is STIR imaging. Conus medullaris unremarkable at the level of L1 inferior endplate. Paraspinal soft tissues are unremarkable. T12-L1: No disc herniation, spinal canal stenosis or neural foraminal narrowing. L1-2: There is a small central disc herniation inverting the ventral thecal sac without causing significant stenosis. Left greater than right ventral nerve roots are encroached. No neural foraminal stenosis bilaterally. L2-3: No disc herniation, spinal canal stenosis or neural foraminal narrowing. Minimal disc bulging identified. L3-4: Asymmetric disc bulging seen greater the right than left resulting in mild central stenosis, particularly at the right lateral recess, moderate right and mild left neural foraminal stenosis. A chronic right lateral disc herniation is not excluded as the etiology of asymmetry of the disc findings. This is a stable pattern dating back at least to 04/22/2017. Facet arthropathy contributes to the pattern once again. L4-5: No disc herniation. Generalized disc bulging and facet arthropathy are reiterated resulting in borderline central stenosis and bilateral neural foraminal stenosis. L5-S1: Ventral thecal sac is minimally flattened due to minimal disc bulging. Facet arthropathy is appreciated but there is no resulting central canal or neural foraminal stenosis. No disc herniation. OTHER FINDINGS: None. IMPRESSION: 1. No acute or subacute fracture appreciated throughout the lumbar spine. Mild chronic compression fractures are reiterated at L2-L3, moderate L1. No fragmentation. 2. Chronic left paracentral disc herniation encroaching ventral nerve roots without significant stenosis at L 1 2. 3. Stable asymmetric disc bulge greater the right than left sides versus disc bulge with overlying right lateral disc herniation results in moderate right but mild left neural foraminal stenosis and mild central canal stenosis, right greater than left. 4. Added lesser findings as discussed above.
[2018-01-24] MEDS: Enoxaparin 40 mg Syringe SC SCH (21:42)
[2018-01-25 07:17] LABS: MEAN CELL VOLUME 93.1 fl (81.0-99.0); MEAN CORPUSCULAR HGB CONC 33.3 g/dL (33.0-37.0); RBC 3.86 Mil/uL (3.80-5.20); RED CELL DISTRIBUTION WIDTH 15.3 % (11.5-14.5)
--- NOTE | 2018-01-25 07:35 | CP.PCM.PN ---
Subjective - Date & Time of Evaluation Date of Evaluation: 01/25/18 Time of Evaluation: 07:35 - Subjective Subjective: pt seen and examined at bedside. No acute events overnight. Tolerated PT w/o issue. No complaints. Pain controlled. Consults/labs/imaging reviewed. Objective - Vital Signs/Intake and Output Vital Signs (last 24 hours): Temp Pulse Resp BP Pulse Ox 98.8 F 78 18 128/66 95 01/25/18 00:55 01/25/18 00:55 01/25/18 00:55 01/25/18 00:55 01/25/18 00:55 - Medications Medications: Current Medications Acetaminophen (Tylenol 325mg Tab) 650 mg PO Q6 PRN PRN Reason: Pain, Mild (1-3) Amlodipine Besylate (Norvasc) 5 mg PO DAILY [facility] Last Admin: 01/24/18 10:11 Dose: 5 mg Cholecalciferol (Vitamin D) 1,000 intlu PO DAILY [facility] Last Admin: 01/24/18 10:14 Dose: 1,000 intlu Cinacalcet (Sensipar) 30 mg PO DAILY [facility] Last Admin: 01/24/18 10:13 Dose: 30 mg Enoxaparin Sodium (Lovenox) 40 mg SC DAILY [facility] PRN Reason: Protocol Last Admin: 01/24/18 21:42 Dose: 40 mg Ketorolac Tromethamine (Toradol) 15 mg IVP Q6 PRN PRN Reason: Pain, moderate (4-7) Last Admin: 01/22/18 21:11 Dose: 15 mg Morphine Sulfate (Morphine) 2 mg IVP Q6 PRN PRN Reason: Pain, severe (8-10) Mycophenolate Mofetil (Cellcept Cap) 250 mg PO BID [facility] Last Admin: 01/24/18 17:13 Dose: 250 mg Ondansetron HCl (Zofran Inj) 4 mg IVP Q6 PRN PRN Reason: Nausea/Vomiting Last Admin: 01/23/18 12:44 Dose: 4 mg Pantoprazole Sodium (Protonix Ec Tab) 40 mg PO DAILY [facility] Last Admin: 01/24/18 10:13 Dose: 40 mg Prednisone (Prednisone Tab) 5 mg PO DAILY [facility] Last Admin: 01/24/18 10:12 Dose: 5 mg Tacrolimus (Prograf Cap) 5 mg PO BID [facility] Last Admin: 01/24/18 17:14 Dose: 5 mg - Labs Labs: 01/25/18 06:43 01/24/18 05:35 PT 10.9 Seconds (9.8-13.1) 01/22/18 13:33 INR 1.0 (0.9-1.2) 01/22/18 13:33 APTT 29.6 Seconds (25.6-37.1) 01/22/18 13:33 - Constitutional Appears: Well, No Acute Distress, Older Than Stated Age - Head Exam Head Exam: ATRAUMATIC, NORMAL INSPECTION, NORMOCEPHALIC - Eye Exam Eye Exam: EOMI, Normal appearance, PERRL - ENT Exam ENT Exam: Mucous Membranes Moist - Neck Exam Neck Exam: Full ROM, Normal Inspection. absent: Tenderness - Respiratory Exam Respiratory Exam: Clear to Ausculation Bilateral, NORMAL BREATHING PATTERN. absent: Accessory Muscle Use, Rales, Rhonchi, Wheezes, Respiratory Distress - Cardiovascular Exam Cardiovascular Exam: REGULAR RHYTHM, RRR, +S1, +S2. absent: Tachycardia, Diastolic murmur, JVD, Rubs - GI/Abdominal Exam GI & Abdominal Exam: Soft, Normal Bowel Sounds. absent: Distended, Firm, Guarding, Rigid, Tenderness - Extremities Exam Extremities Exam: Normal Capillary Refill, Normal Inspection. absent: Calf Tenderness, Pedal Edema, Tenderness - Back Exam Back Exam: NORMAL INSPECTION. absent: CVA tenderness (L), CVA tenderness (R), muscle spasm, tenderness - Neurological Exam Neurological Exam: Alert, Awake, CN II-XII Intact, Oriented x3 - Psychiatric Exam Psychiatric exam: Normal Affect, Normal Mood - Skin Skin Exam: Dry, Intact Assessment and Plan - Assessment and Plan (Free Text) Assessment: 62 y/o female with PMHx of CKD/ESRD s/p Kidney transplant in 2005, DM type 2, HTN , Hyperlipidemia, back pain, degenerative arthritis admitted for evaluation of nondisplaced nonoperative hip fracture and lower back pain. Plan: Nondisplaced Non Operative Hip fracture -Ortho surgery on board -non-operative, patient cleared for PT by Ortho -pain management tylenol mild pain 650 mg po prn -toradol moderate pain -morphine severe pain -zofran prn nausea -TCU for rehab Back pain/Hx of previous lumbar compression fracture -Pain control -neurosurgery: not able to see patient till Saturday, reviewed MRI results, recommends [place] CKD/ESRD S/p Kidney transplant -stable -Outpatient count room clerk Dr. Glez, current on consult -w/c with home meds Tacrolimus, Cellcept, prednisone -Labs PTH, Vit D level ordered pending results Leukocytosis -resolved HTN -stable -Norvasc 5 po qd History of DM -stable -HbA1c 5.8 -No currently taking meds Diet -Heart health diet DVT PPX -Lovenox sc 40mg qd
[2018-01-25 07:42] LABS: BLOOD UREA NITROGEN 26 mg/dl (7-17); CALCIUM 10.5 mg/dL (8.4-10.2); GFR AFRICAN-AMERICAN > 60; GFR NON-AFRICAN AMERICAN > 60
[2018-01-25] MEDS: Enoxaparin 40 mg Syringe SC SCH (09:07)
[2018-01-25] MEDS: Cholecalciferol 1,000 INTLU TAB PO SCH (09:10)
[2018-01-25] MEDS: Pantoprazole 40 mg EC Tab PO SCH (09:10)
--- NOTE | 2018-01-25 23:23 | CP.PCM.PN ---
Subjective - Date & Time of Evaluation Date of Evaluation: 01/25/18 Time of Evaluation: 15:00 - Subjective Subjective: SEEN ON RENAL F/U ALL PREVIOUS EMR REVIEWED PAIN IS WELL CONTROLED FEELS IMPROVED RENAL FUNCTION GOOD .. ELECTROLYTES OK Objective - Vital Signs/Intake and Output Vital Signs (last 24 hours): Temp Pulse Resp BP Pulse Ox 97.8 F 63 20 127/68 98 01/25/18 16:33 01/25/18 16:33 01/25/18 16:33 01/25/18 16:33 01/25/18 16:33 - Medications Medications: Current Medications Acetaminophen (Tylenol 325mg Tab) 650 mg PO Q6 PRN PRN Reason: Pain, Mild (1-3) Amlodipine Besylate (Norvasc) 5 mg PO DAILY [facility] Last Admin: 01/25/18 09:09 Dose: 5 mg Cholecalciferol (Vitamin D) 1,000 intlu PO DAILY [facility] Last Admin: 01/25/18 09:10 Dose: 1,000 intlu Cinacalcet (Sensipar) 30 mg PO DAILY [facility] Last Admin: 01/25/18 09:10 Dose: 30 mg Enoxaparin Sodium (Lovenox) 40 mg SC DAILY [facility] PRN Reason: Protocol Last Admin: 01/25/18 09:07 Dose: 40 mg Ketorolac Tromethamine (Toradol) 15 mg IVP Q6 PRN PRN Reason: Pain, moderate (4-7) Last Admin: 01/22/18 21:11 Dose: 15 mg Morphine Sulfate (Morphine) 2 mg IVP Q6 PRN PRN Reason: Pain, severe (8-10) Mycophenolate Mofetil (Cellcept Cap) 250 mg PO BID [facility] Last Admin: 01/25/18 16:12 Dose: 250 mg Ondansetron HCl (Zofran Inj) 4 mg IVP Q6 PRN PRN Reason: Nausea/Vomiting Last Admin: 01/23/18 12:44 Dose: 4 mg Pantoprazole Sodium (Protonix Ec Tab) 40 mg PO DAILY [facility] Last Admin: 01/25/18 09:10 Dose: 40 mg Prednisone (Prednisone Tab) 5 mg PO DAILY [facility] Last Admin: 01/25/18 09:07 Dose: 5 mg Tacrolimus (Prograf Cap) 5 mg PO BID [facility] Last Admin: 07/07/18 16:12 Dose: 5 mg - Labs Labs: 01/25/18 06:43 01/25/18 06:43 PT 10.9 Seconds (9.8-13.1) 01/22/18 13:33 INR 1.0 (0.9-1.2) 01/22/18 13:33 APTT 29.6 Seconds (25.6-37.1) 01/22/18 13:33 Assessment and Plan - Assessment and Plan (Free Text) Assessment: S/P RENAL TRANSPLANT 2005 .. RENAL FUNCTION GOOD LYTES OK TERTIARRY HYPER PARATHYROIDISM .. ON SENSIPAR HTN .. CONTROLED DM .. BECAME DIET CONTROLED S/P UTI .. U/A IS NOW OK S/P DIVERTICULOSIS / DIVERTICULITIS .. S/P SIGMOIDECTOMY S/P FALL .. NON DISPLACED HIP FRACTURE P : C/O CURRENT MEDS C/O PRESENT MANAGEMENT RESULTS OF VIT D- 25 AND PTH LEVELS R PENDING PT WAS REASSYRED
[2018-01-26 07:50] LABS: HEMOGLOBIN 11.8 g/dL (12.0-16.0); MEAN CELL VOLUME 91.7 fl (81.0-99.0); MEAN CORPUSCULAR HEMOGLOBIN 30.8 pg (27.0-31.0); MEAN CORPUSCULAR HGB CONC 33.6 g/dL (33.0-37.0); RBC 3.82 Mil/uL (3.80-5.20); RED CELL DISTRIBUTION WIDTH 15.4 % (11.5-14.5); WHITE BLOOD COUNT 7.3 K/uL (4.8-10.8)
[2018-01-26 08:14] LABS: ALB/GLOB RATIO 1.1 (1.0-2.1); ALBUMIN 3.8 g/dL (3.5-5.0); ALT/SGPT 16 U/L (9-52); AST/SGOT 16 U/L (14-36); BLOOD UREA NITROGEN 28 mg/dl (7-17); CALCIUM 10.8 mg/dL (8.4-10.2); GFR AFRICAN-AMERICAN > 60; GFR NON-AFRICAN AMERICAN > 60
[2018-01-26] MEDS: Cholecalciferol 1,000 INTLU TAB PO SCH (09:58)
[2018-01-26] MEDS: Enoxaparin 40 mg Syringe SC SCH (09:58)
[2018-01-26] MEDS: Pantoprazole 40 mg EC Tab PO SCH (09:59)
--- NOTE | 2018-01-26 10:20 | CP.PCM.PN ---
Subjective - Date & Time of Evaluation Date of Evaluation: 01/26/18 Time of Evaluation: 08:40 - Subjective Subjective: Patient seen and examined, NAD, states that she is eating well and her appetite has returned to her baseline, denies n/V/D. C/o Pain to the lower back when standing up. Objective - Vital Signs/Intake and Output Vital Signs (last 24 hours): Temp Pulse Resp BP Pulse Ox 97.9 F 64 18 136/70 98 01/26/18 08:07 01/26/18 08:07 01/26/18 08:07 01/26/18 09:59 01/26/18 08:07 - Medications Medications: Current Medications Acetaminophen (Tylenol 325mg Tab) 650 mg PO Q6 PRN PRN Reason: Pain, Mild (1-3) Amlodipine Besylate (Norvasc) 5 mg PO DAILY [facility] Last Admin: 01/26/18 09:59 Dose: 5 mg Cholecalciferol (Vitamin D) 1,000 intlu PO DAILY [facility] Last Admin: 01/26/18 09:58 Dose: 1,000 intlu Cinacalcet (Sensipar) 30 mg PO DAILY [facility] Last Admin: 01/26/18 09:58 Dose: 30 mg Enoxaparin Sodium (Lovenox) 40 mg SC DAILY [facility] PRN Reason: Protocol Last Admin: 01/26/18 09:58 Dose: 40 mg Ketorolac Tromethamine (Toradol) 15 mg IVP Q6 PRN PRN Reason: Pain, moderate (4-7) Last Admin: 01/22/18 21:11 Dose: 15 mg Morphine Sulfate (Morphine) 2 mg IVP Q6 PRN PRN Reason: Pain, severe (8-10) Mycophenolate Mofetil (Cellcept Cap) 250 mg PO BID [facility] Last Admin: 01/26/18 09:59 Dose: 250 mg Ondansetron HCl (Zofran Inj) 4 mg IVP Q6 PRN PRN Reason: Nausea/Vomiting Last Admin: 01/23/18 12:44 Dose: 4 mg Pantoprazole Sodium (Protonix Ec Tab) 40 mg PO DAILY [facility] Last Admin: 01/26/18 09:59 Dose: 40 mg Prednisone (Prednisone Tab) 5 mg PO DAILY [facility] Last Admin: 01/26/18 09:59 Dose: 5 mg Tacrolimus (Prograf Cap) 5 mg PO BID [facility] Last Admin: 01/26/18 09:59 Dose: 5 mg - Labs Labs: 01/26/18 05:30 01/26/18 05:30 PT 10.9 Seconds (9.8-13.1) 01/22/18 13:33 INR 1.0 (0.9-1.2) 01/22/18 13:33 APTT 29.6 Seconds (25.6-37.1) 01/22/18 13:33 - Constitutional Appears: No Acute Distress, Older Than Stated Age - Head Exam Head Exam: ATRAUMATIC, NORMOCEPHALIC - Eye Exam Eye Exam: EOMI, PERRL - ENT Exam ENT Exam: Mucous Membranes Moist - Neck Exam Neck Exam: Full ROM - Respiratory Exam Respiratory Exam: Clear to Ausculation Bilateral. absent: Rales, Rhonchi - Cardiovascular Exam Cardiovascular Exam: REGULAR RHYTHM, +S1, +S2. absent: JVD - GI/Abdominal Exam GI & Abdominal Exam: Soft, Normal Bowel Sounds. absent: Tenderness - Extremities Exam Extremities Exam: Tenderness. absent: Pedal Edema Additional comments: mild tenderness to palpation of lat aspect of proximal thigh - Back Exam Back Exam: tenderness Additional comments: unspecific tenderness to palpation of lower back/sacra area - Neurological Exam Neurological Exam: Alert, Awake, Oriented x3 - Psychiatric Exam Psychiatric exam: Normal Affect, Normal Mood - Skin Skin Exam: Normal Color, Warm Assessment and Plan - Assessment and Plan (Free Text) Assessment: 62 y/o female with PMHx of CKD/ESRD s/p Kidney transplant in 2005, DM type 2, HTN , Hyperlipidemia, back pain, degenerative arthritis admitted for evaluation of nondisplaced nonoperative hip fracture and lower back pain. Patient appetite improved. Plan: Nondisplaced Non Operative Hip fracture -Ortho surgery on board -non-operative, patient cleared for PT by Ortho -pain management tylenol mild pain 650 mg po prn -toradol moderate pain -morphine severe pain -zofran prn nausea -initiate transfer plans to TCU for rehab Back pain/Hx of previous lumbar compression fracture -Pain control -neurosurgery consults ordered, will f/u recomm CKD/ESRD S/p Kidney transplant -stable -Outpatient regulatory assistant Dr. Glez, current on consult -w/c with home meds Tacrolimus, Cellcept, prednisone -Labs PTH, Vit D level ordered pending results Leukocytosis -resolved HTN -stable -Norvasc 5 po qd History of DM -stable -HbA1c 5.8 -No currently taking meds Diet -Heart healthy diet DVT PPX -Lovenox sc 40mg qd
[2018-01-27 07:56] VITALS: RESP 20
[2018-01-27] MEDS: Enoxaparin 40 mg Syringe SC SCH (09:16)
[2018-01-27] MEDS: Pantoprazole 40 mg EC Tab PO SCH (09:19)
[2018-01-27] MEDS: Cholecalciferol 1,000 INTLU TAB PO SCH (09:20)
--- NOTE | 2018-01-27 09:44 | CP.PCM.PN ---
Subjective - Date & Time of Evaluation Date of Evaluation: 01/27/18 Time of Evaluation: 09:42 - Subjective Subjective: Patient states she has little pain in back or leg. She is complaining of constipation. Denies numbmess/tingling/change in bowel/bladder/denies weakness Review of Systems - Review of Systems All systems: reviewed and no additional remarkable complaints except - Constitutional Additional comments: denies fever/chills - Cardiovascular Cardiovascular: UNREMARKABLE - Respiratory Respiratory: UNREMARKABLE - Integumentary Integumentary: UNREMARKABLE - Hematologic/Lymphatic Hematologic: UNREMARKABLE Objective - Vital Signs/Intake and Output Vital Signs (last 24 hours): Temp Pulse Resp BP Pulse Ox 98.1 F 62 20 148/74 98 01/27/18 07:55 01/27/18 09:17 01/27/18 07:55 01/27/18 09:17 01/27/18 07:55 - Medications Medications: Current Medications Acetaminophen (Tylenol 325mg Tab) 650 mg PO Q6 PRN PRN Reason: Pain, Mild (1-3) Amlodipine Besylate (Norvasc) 5 mg PO DAILY [facility] Last Admin: 01/27/18 09:17 Dose: 5 mg Cholecalciferol (Vitamin D) 1,000 intlu PO DAILY [facility] Last Admin: 01/27/18 09:20 Dose: 1,000 intlu Cinacalcet (Sensipar) 30 mg PO DAILY [facility] Last Admin: 01/27/18 09:19 Dose: 30 mg Enoxaparin Sodium (Lovenox) 40 mg SC DAILY [facility] PRN Reason: Protocol Last Admin: 01/27/18 09:16 Dose: 40 mg Ketorolac Tromethamine (Toradol) 15 mg IVP Q6 PRN PRN Reason: Pain, moderate (4-7) Last Admin: 01/22/18 21:11 Dose: 15 mg Mycophenolate Mofetil (Cellcept Cap) 250 mg PO BID [facility] Last Admin: 01/27/18 09:16 Dose: 250 mg Ondansetron HCl (Zofran Inj) 4 mg IVP Q6 PRN PRN Reason: Nausea/Vomiting Last Admin: 01/23/18 12:44 Dose: 4 mg Pantoprazole Sodium (Protonix Ec Tab) 40 mg PO DAILY [facility] Last Admin: 01/27/18 09:19 Dose: 40 mg Prednisone (Prednisone Tab) 5 mg PO DAILY [facility] Last Admin: 01/27/18 09:17 Dose: 5 mg Tacrolimus (Prograf Cap) 5 mg PO BID [facility] Last Admin: 01/27/18 09:18 Dose: 5 mg - Labs Labs: 01/26/18 05:30 01/26/18 05:30 PT 10.9 Seconds (9.8-13.1) 01/22/18 13:33 INR 1.0 (0.9-1.2) 01/22/18 13:33 APTT 29.6 Seconds (25.6-37.1) 01/22/18 13:33 - Constitutional Appears: Well, No Acute Distress - Head Exam Head Exam: ATRAUMATIC - Neck Exam Neck Exam: Full ROM, Normal Inspection - Respiratory Exam Respiratory Exam: NORMAL BREATHING PATTERN - Cardiovascular Exam Additional comments: +DP/PT pulses - Extremities Exam Additional comments: calves soft NT neg homans sensation intact BLE - Back Exam Back Exam: NORMAL INSPECTION, paraspinal tenderness, tenderness - Neurological Exam Neurological Exam: Alert, Awake, Oriented x3 Neuro motor strength exam: Left Lower Extremity: 5, Right Lower Extremity: 5 - Psychiatric Exam Psychiatric exam: Normal Affect, Normal Mood - Skin Skin Exam: Dry, Intact, Normal Color, Warm Assessment and Plan (1) Nondisplaced fracture of greater trochanter of right femur Assessment & Plan: non operative PT/OT no active abduction of right leg encourage OOB VTE proph d/w Dr. Benz, agrees with above orthopedically stable f/u in office [address] Benz, call for appointment Status: Acute ( Status: Acute (2) Lumbar compression fracture Assessment & Plan: per MRI, no acute fractures patient states she had not seen database specialist in pain recommend spine consultation no NV deficits Status: Acute (3) Lumbar disc herniation with radiculopathy Assessment & Plan: stable per MRI report PT/OT OOB Status: Acute Radiology Interpretation - Radiology Interpretation #2 Interpretation: Patient Name / ID : ANKUR JIMENEZ D / [id number] Exam Date : 01/24/2018 10:59:00 ( Approved ) Study Comment : Sex / Age : F / 62Y Creator : Adam Hernandez MD Dictator : Adam Hernandez MD Food Production Worker : Aircraft Powerplant Repairer : Adam Hernandez MD Approver2 : Report Date : 01/24/2018 12:48:20 My Comment : PROCEDURE: MR LUMBAR SPINE WITHOUT CONTRAST HISTORY: lumbar compression fractures, LBP after fall COMPARISON: Lumbar spine MRI 04/22/2017, lumbar spine radiographs 01/23/[address] 06/27/2017. TECHNIQUE: Multiecho multiplanar sequences were performed through the lumbar spine without the use of intravenous contrast. FINDINGS: Normal lumbar lordosis. Lumbar compression fractures are anteriorly wedged and are chronic with no edema at this time. No fragmentation. L1 is anteriorly wedged on a moderate basis with L2 mildly wedged anteriorly and L3 mildly wedged anteriorly with, a comminution of Schmorl's node the depressing the upper endplates centrally. Rounded Marrow signal changes are identified at the L4 vertebral body toward the right with incomplete fat suppression compatible with a an atypical benign hemangioma. This is well seen in prior and pelvis CT 06/27/2017 and lumbar spine MRI 04/22/2017. No significant interval change other than increased fat suppression currently an additional benign hemangioma seen approaching the right pedicle at L4 which completely suppresses in is STIR imaging. Conus medullaris unremarkable at the level of L1 inferior endplate. Paraspinal soft tissues are unremarkable. T12-L1: No disc herniation, spinal canal stenosis or neural foraminal narrowing. L1-2: There is a small central disc herniation inverting the ventral thecal sac without causing significant stenosis. Left greater than right ventral nerve roots are encroached. No neural foraminal stenosis bilaterally. L2-3: No disc herniation, spinal canal stenosis or neural foraminal narrowing. Minimal disc bulging identified. L3-4: Asymmetric disc bulging seen greater the right than left resulting in mild central stenosis, particularly at the right lateral recess, moderate right and mild left neural foraminal stenosis. A chronic right lateral disc herniation is not excluded as the etiology of asymmetry of the disc findings. This is a stable pattern dating back at least to 04/22/2017. Facet arthropathy contributes to the pattern once again. L4-5: No disc herniation. Generalized disc bulging and facet arthropathy are reiterated resulting in borderline central stenosis and bilateral neural foraminal stenosis. L5-S1: Ventral thecal sac is minimally flattened due to minimal disc bulging. Facet arthropathy is appreciated but there is no resulting central canal or neural foraminal stenosis. No disc herniation. OTHER FINDINGS: None. IMPRESSION: 1. No acute or subacute fracture appreciated throughout the lumbar spine. Mild chronic compression fractures are reiterated at L2-L3, moderate L1. No fragmentation. 2. Chronic left paracentral disc herniation encroaching ventral nerve roots without significant stenosis at L 1 2. 3. Stable asymmetric disc bulge greater the right than left sides versus disc bulge with overlying right lateral disc herniation results in moderate right but mild left neural foraminal stenosis and mild central canal stenosis, right greater than left. 4. Added lesser findings as discussed above.
[2018-01-27] MEDS ORDERED: Lidocaine 5% Patch TD SCH (10:15)
--- NOTE | 2018-01-27 16:15 | CP.PCM.DIS ---
Provider - Provider Date of Admission: 01/22/18 13:54 Attending physician: Bisi Lala MD Time Spent in preparation of Discharge (in minutes): 35 Diagnosis - Discharge Diagnosis (1) Nondisplaced fracture of greater trochanter of right femur Status: Acute (2) Lumbar compression fracture Status: Chronic (3) Lumbar disc herniation with radiculopathy Status: Chronic (4) Hand abrasion Status: Acute Priority: Low Hospital Course - Lab Results Lab Results: Most Recent Lab Values WBC 7.3 K/uL (4.8-10.8) 01/26/18 05:30 RBC 3.82 Mil/uL (3.80-5.20) 01/26/18 05:30 Hgb 11.8 g/dL (12.0-16.0) L 01/26/18 05:30 Hct 35.0 % (34.0-47.0) 01/26/18 05:30 MCV 91.7 fl (81.0-99.0) 01/26/18 05:30 MCH 30.8 pg (27.0-31.0) 01/26/18 05:30 MCHC 33.6 g/dL (33.0-37.0) 01/26/18 05:30 RDW 15.4 % (11.5-14.5) H 01/26/18 05:30 Plt Count 196 K/uL (130-400) 01/26/18 05:30 MPV 8.3 fl (7.2-11.7) 01/22/18 13:33 Neut % (Auto) 83.8 % (50.0-75.0) H 01/22/18 13:33 Lymph % (Auto) 10.7 % (20.0-40.0) L 01/22/18 13:33 [place] % (Auto) 5.0 % (0.0-10.0) 01/22/18 13:33 Eos % (Auto) 0.2 % (0.0-4.0) 01/22/18 13:33 Baso % (Auto) 0.3 % (0.0-2.0) 01/22/18 13:33 Neut # (Auto) 11.8 K/uL (1.8-7.0) H 01/22/18 13:33 Lymph # (Auto) 1.5 K/uL (1.0-4.3) 01/22/18 13:33 [place] # (Auto) 0.7 K/uL (0.0-0.8) 01/22/18 13:33 Eos # (Auto) 0.0 K/uL (0.0-0.7) 01/22/18 13:33 Baso # (Auto) 0.0 K/uL (0.0-0.2) 01/22/18 13:33 PT 10.9 Seconds (9.8-13.1) 01/22/18 13:33 INR 1.0 (0.9-1.2) 01/22/18 13:33 APTT 29.6 Seconds (25.6-37.1) 01/22/18 13:33 Sodium 142 mmol/l (132-148) 01/26/18 05:30 Potassium 4.4 MMOL/L (3.6-5.0) 01/26/18 05:30 Chloride 106 mmol/L (98-107) 01/26/18 05:30 Carbon Dioxide 26 mmol/L (22-30) 01/26/18 05:30 Anion Gap 14 (10-20) 01/26/18 05:30 BUN 28 mg/dl (7-17) H 01/26/18 05:30 Creatinine 0.9 mg/dl (0.7-1.2) 01/26/18 05:30 Est GFR ( Amer) > 60 01/26/18 05:30 Est GFR (Non-Af Amer) > 60 01/26/18 05:30 Random Glucose 93 mg/dL (65-105) 01/26/18 05:30 Calcium 10.8 mg/dL (8.4-10.2) H 01/26/18 05:30 Total Bilirubin 0.6 mg/dl (0.2-1.3) 01/26/18 05:30 AST 16 U/L (14-36) 01/26/18 05:30 ALT 16 U/L (9-52) 01/26/18 05:30 Alkaline Phosphatase 63 U/L (38-126) 01/26/18 05:30 Total Protein 7.1 G/DL (6.3-8.2) 01/26/18 05:30 Albumin 3.8 g/dL (3.5-5.0) 01/26/18 05:30 Globulin 3.3 gm/dL (2.2-3.9) 01/26/18 05:30 Albumin/Globulin Ratio 1.1 (1.0-2.1) 01/26/18 05:30 Blood Type O POSITIVE 01/22/18 15:24 Antibody Screen Negative 01/22/18 15:24 BBK History Checked Patient has bt 01/22/18 15:24 - Hospital Course Hospital Course: 62 yo pleasant lady with PMHx of CKD/ESRD s/p Kidney transplant in 2005, DM type 2, HTN , Hyperlipidemia, back pain, degenerative arthritis, diverticulitis in the past with bowel sigmoid surgical resection last June, the patient has osteopenia secondary to hx of ESRD s/p transplant and chronic use of steroids and hx of lumbar compression fracture. The patient was admitted to [facility] [place] 01[place]22[place]18 for evaluation of possible Right hip fracture s/p fall at home and c /o pain to the [facility]. During the hospital course of this admission a CT of right LE was performed and reports a Nondysplaced fracture of greater trochanter of right femur, she was evaluated as non operative by ortho surgery and initiated PT/OT. Also an MRI of lumbar spine was performed showed chronic L2 and L3 compression fracture with no acute or subacute fracture appreciated at this time ( see full report).The patient has history of gait difficulties, several falls, and deconditioning requiring PT/OT in a rehab facility this july, she reports she was ambulatory with walker inside her house. Her hospital stay has been uneventfull, today she c/o back pain and denies any other complain. PT/OT course: patient has been unable to bear weight due to pain of lower back and RLE, with decreased mobility and functionality. Decision is made to D/C patient to a Rehabilitation facility [facility] to continue PT/ OT treatment. Discharge Exam - Head Exam Head Exam: ATRAUMATIC - Eye Exam Eye Exam: EOMI, PERRL - ENT Exam ENT Exam: Mucous Membranes Moist - Neck Exam Neck exam: Full Rom - Respiratory Exam Respiratory Exam: Clear to PA & Lateral. absent: Rales, Rhonchi, Wheezes - Cardiovascular Exam Cardiovascular Exam: REGULAR RHYTHM, +S1, +S2. absent: JVD - GI/Abdominal Exam GI & Abdominal Exam: Normal Bowel Sounds. absent: Organomegaly, Tenderness - Back Exam Back exam: vertebral tenderness (to palpation of lower back vertebrae) - Neurological Exam Neurological exam: Abnormal Gait (unable to bear weight without assistance), Alert, Oriented x3 - Psychiatric Exam Psychiatric exam: Normal Affect, Normal Mood - Skin Skin Exam: Normal Color, Warm Discharge Plan - Follow Up Plan Condition: STABLE Disposition: REHAB FACILITY/REHAB UNIT Instructions: Hip Fracture (DC), Preventing Falls Referrals: Eddie Benz MD [Staff Provider] - Ryan Fried MD [Family Provider] -
[2018-01-27 16:37] VITALS: BP 147/74; PULSE 85; TEMP 97.8; O2SAT 97
== END 2018-01-27 17:00 | DRG 236 ==
LOC: H.ER 10:53 → H.ERHOLD 13:54 → H.MEDSURG1 16:55
PROVIDERS: ADMIT Family Medicine Geriatric Medicine; ATTEND Family Medicine Geriatric Medicine
DX: S72.114A Nondisplaced fracture of greater trochanter of right femur, initial encounter for closed fracture (principal); S60.512A Abrasion of left hand, initial encounter; M51.16 Intervertebral disc disorders with radiculopathy, lumbar region; M48.56XA Collapsed vertebra, not elsewhere classified, lumbar region, initial encounter for fracture; N18.9 Chronic kidney disease, unspecified; E11.22 Type 2 diabetes mellitus with diabetic chronic kidney disease; Z94.0 Kidney transplant status; I12.9 Hypertensive chronic kidney disease with stage 1 through stage 4 chronic kidney disease, or unspecified chronic kidney disease; W18.30XA Fall on same level, unspecified, initial encounter; R29.6 Repeated falls; E78.00 Pure hypercholesterolemia, unspecified; Y92.009 Unspecified place in unspecified non-institutional (private) residence as the place of occurrence of the external cause; Z91.81 History of falling; Z79.52 Long term (current) use of systemic steroids; Z79.899 Other long term (current) drug therapy

== ENCOUNTER 2018-07-11 21:41 | Inpatient (IN) | payer MEDICAID ==
[2018-07-11 21:41] VITALS: BMI 20.5
--- NOTE | 2018-07-11 23:25 | ED PDOC ---
HPI:Nausea, Vomiting, Diarrhea Time Seen by Provider: 07/11/18 22:09 Chief Complaint (Nursing): GI Problem Chief Complaint (Provider): GI Problem History Per: Patient History/Exam Limitations: no limitations Onset/Duration Of Symptoms: Days (x1) Current Symptoms Are (Timing): Still Present Additional Complaint(s): 63 year old female with past sHx of renal transplant and multiple abdominal surgeries, presents to ED with a complaint of intractable nonboody, no nbilious vomiting since 0800 earlier this morning. She reports she has been unable to tolerate fluids or daily medications due to the vomiting. Patient denies any abdominal pain, headache, new food, change in BM, recent travel, or known sick contacts. PCP: [facility] Past Medical History Reviewed: Historical Data, Nursing Documentation, Vital Signs Vital Signs: Last Vital Signs Temp 99.2 F 07/11/18 21:57 Pulse 82 07/11/18 21:57 Resp 18 07/11/18 21:57 BP 155/81 H 07/11/18 21:57 Pulse Ox 98 07/11/18 21:57 - Medical History PMH: Anemia, Arthritis, Diabetes, Diverticulitis, HTN, Hypercholesterolemia, End Stage Renal Disease (s/p transplant), Chronic Kidney Disease Denies: HIV - Surgical History Surgical History: Other surgeries: renal transplant - Family History Family History: States: Unknown Family Hx - Home Medications Home Medications: Ambulatory Orders Medication Instructions Recorded Cholecalciferol (Vitamin D3) 1 tab PO DAILY 07/12/18 [Vitamin D3] Cinacalcet [Sensipar] 30 mg PO DAILY 07/12/18 RX: Cranberry Fruit Extract/Vit C 2 cap PO DAILY 07/12/18 [Azo Cranberry Softgel] RX: Gabapentin [Neurontin] 300 mg PO HS 07/12/18 RX: Mycophenolate [Cellcept Cap] 250 mg PO BID 07/12/18 RX: Prednisone [Eber] 5 mg PO DAILY 07/12/18 RX: Tacrolimus [Prograf] 5 mg PO BID 07/12/18 RX: amLODIPine [Norvasc] 5 mg PO DAILY 07/12/18 - Allergies Allergies/Adverse Reactions: Allergies Allergy/AdvReac Type Severity Reaction Status Date / Time cefazolin Allergy ITCHING Verified 07/11/18 21:56 iodine Allergy ITCHING Verified 07/11/18 21:56 vancomycin Allergy ITCHING Verified 07/11/18 21:56 Review of Systems ROS Statement: Except As Marked, All Systems Reviewed And Found Negative Gastrointestinal: Positive for: Vomiting (NBNB). Negative for: Abdominal Pain, Diarrhea, Constipation, Melena, Hematochezia, Other (tolerating fluids or pills) Neurological: Negative for: Headache Physical Exam - Reviewed Nursing Documentation Reviewed: Yes Vital Signs Reviewed: Yes - Physical Exam Appears: Positive for: In Acute Distress (gastrointestinal distress; actively vomiting; chronically ill appearance) Head Exam: Positive for: ATRAUMATIC, NORMOCEPHALIC Skin: Positive for: Warm, Dry Eye Exam: Positive for: EOMI, PERRL ENT: Positive for: Other (tacky mucous membranes) Neck: Positive for: Painless ROM, Supple Cardiovascular/Chest: Positive for: Regular Rate, Rhythm. Negative for: Murmur Respiratory: Positive for: Normal Breath Sounds. Negative for: Respiratory Distress Gastrointestinal/Abdominal: Positive for: Soft. Negative for: Tenderness, Mass, Distended, Guarding, Rebound Back: Positive for: Normal Inspection. Negative for: Muscle Spasm Extremity: Positive for: Normal ROM. Negative for: Deformity Lymphatic: Negative for: Adenopathy Neurologic/Psych: Positive for: Alert. Negative for: Motor/Sensory Deficits - Laboratory Results Result Diagrams: 07/13/18 05:30 07/13/18 05:30 - ECG O2 Sat by Pulse Oximetry: 98 (RA) Pulse Ox Interpretation: Normal Medical Decision Making Medical Decision Making: Initial Impression: vomiting with multiple high risk Differential diagnosis includes but not limited to: gastroenteritis; dehydration; electrolyte abnormality; acute and chronic renal failure; transplant rejection; atypical angina; obstruction Initial Plan: * Labs * CT ABD/pelvis * EKG * CXR * Accucheck * Pepcid 20mg IVP * Zofran 8mg IV * Blood culture * Urine culture Time: 5 --Accucheck: 158 mg/dL Time: 00:00 --Patient endorsed to Dr. Merino, pending CT results. Scribe Attestation: Documented by Evie Menon, acting as a scribe for Candice Chicas MD. Provider Scribe Attestation: All medical record entries made by the Scribe were at my direction and personally dictated by me. I have reviewed the chart and agree that the record accurately reflects my personal performance of the history, physical exam, medical decision making, and the department course for this patient. I have also personally directed, reviewed, and agree with the discharge instructions and disposition. Disposition - Clinical Impression Clinical Impression: Vomiting - Patient ED Disposition Is Patient to be Admitted: Transfer of Care - Disposition Disposition Time: 00:00 Condition: FAIR Patient Signed Over To: Claudy Merino Handoff Comments: Pending ER workup reasessment and final ER disposition
[2018-07-11 23:43] LABS: SQUAMOUS EPITHIAL 2 /hpf (0-5); URINE BACTERIA MANY (<OCC); URINE BILIRUBIN NEGATIVE (NEGATIVE); URINE BLOOD MODERATE (NEGATIVE); URINE CLARITY CLOUDY (Clear); URINE COLOR YELLOW (YELLOW); URINE GLUCOSE (UA) NEG (NEGATIVE); URINE LEUKOCYTE ESTERASE LARGE Leu/uL (Negative); URINE PROTEIN 100 mg/dL (NEGATIVE); URINE UROBILINOGEN 0.2-1.0 mg/dL (0.2-1.0); WBC CLUMPS FEW /hpf
[2018-07-12 00:05] LABS: BASO # 0.1 K/uL (0.0-0.2); BASO % 0.4 % (0.0-2.0); EOS % 0.2 % (0.0-4.0); HEMOGLOBIN 11.7 g/dL (12.0-16.0); LYMPH # 1.2 K/uL (1.0-4.3); LYMPH % 9.3 % (20.0-40.0); MEAN CELL VOLUME 95.7 fl (81.0-99.0); MEAN CORPUSCULAR HEMOGLOBIN 30.7 pg (27.0-31.0); MEAN CORPUSCULAR HGB CONC 32.1 g/dL (33.0-37.0); MEAN PLATELET VOLUME 8.6 fl (7.2-11.7); MONO % 7.8 % (0.0-10.0); NEUT # 10.5 K/uL (1.8-7.0); NEUT % 82.3 % (50.0-75.0); PLATELET COUNT 180 K/uL (130-400); RED CELL DISTRIBUTION WIDTH 15.6 % (11.5-14.5); WHITE BLOOD COUNT 12.8 K/uL (4.8-10.8)
[2018-07-12] MEDS ORDERED: Ciprofloxacin 400mg/200ml D5W 400 MG/200 ML BAG IV STA (00:05)
[2018-07-12 00:06] LABS: VENOUS BLOOD GAS BASE EXCESS -1.3 mmol/L (0.0-2.0); VENOUS BLOOD GAS PCO2 35 mmHg (40-60); VENOUS BLOOD GAS PO2 52 mm/Hg (30-55); VENOUS BLOOD PH 7.42 (7.32-7.43)
[2018-07-12 00:14] LABS: INR 1.1; PROTHROMBIN TIME 12.7 Seconds (9.8-13.1)
[2018-07-12 00:20] LABS: ALB/GLOB RATIO 1.1 (1.0-2.1); ALT/SGPT 16 U/L (9-52); AST/SGOT 16 U/L (14-36); BLOOD UREA NITROGEN 17 mg/dl (7-17); CALCIUM 9.3 mg/dL (8.4-10.2); GFR NON-AFRICAN AMERICAN > 60; LIPASE 67 U/L (23-300)
[2018-07-12] MEDS ORDERED: DiphenhydrAMINE 50 mg/ml Inj IVP STA (00:41)
[2018-07-12] MEDS ORDERED: Ciprofloxacin 400mg/200ml D5W 400 MG/200 ML BAG IVPB ONE (00:46)
--- NOTE | 2018-07-12 00:54 | ED PDOC ---
- Laboratory Results Result Diagrams: 07/11/18 23:40 07/11/18 23:40 - ECG O2 Sat by Pulse Oximetry: 98 (RA) Medical Decision Making Medical Decision Making: Time: 00:00 --Patient endorsed to provider by Dr. Chicas, pending CT results and final disposition. Time: 152 --CT ABD/pelvis FINDINGS: Bilateral basilar atelectatic pulmonary changes more on the left side. Moderate cardiomegaly, unchanged. Small sliding hiatal hernia, unchanged. Cholelithiasis with distended gallbladder, unchanged. Minimal fat stranding surrounding the right renal transplant. Otherwise, unremarkable renal transplant in the right lower quadrant. Mild diffuse thickening of the bladder, unchanged. Cystocele is unchanged. Normal unenhanced liver. Nondilated extrahepatic biliary system. Normal unenhanced spleen. Normal pancreas. Normal bilateral adrenal glands. Moderate atrophy of the right kidney. There is no right renal mass. There are no right renal calculi. There is no right hydronephrosis. Normal visualized right ureter. Moderate atrophy of the left kidney. There is no left renal mass. There are no left renal calculi. There is no left hydronephrosis. Normal visualized left ureter. Normal visualized stomach. Normal small intestine. Normal colon. The appendix is visualized and appears normal. There is no demonstrated peritoneal fluid. Calcified atheromatous plaques of the abdominal aorta. Normal inferior vena cava. Normal retroperitoneum. There is no pelvic mass lesion or lymphadenopathy. There is no pelvic fluid. Normal abdominal wall. Moderate osteopenia. Moderate chronic compression deformities of the lumbar vertebral bodies. IMPRESSION: Bilateral basilar atelectatic pulmonary changes more on the left side. Moderate cardiomegaly, unchanged. Small sliding hiatal hernia, unchanged. Cholelithiasis with distended gallbladder, unchanged. Minimal fat stranding surrounding the right renal transplant. Otherwise, unremarkable renal transplant in the right lower quadrant. Mild diffuse thickening of the bladder, unchanged. Cystocele is unchanged. Time: 8 --Patient to be admitted to Dr. Spencer who accepts patient for further treatment of pyelonephritis. Scribe Attestation: Documented by Evie Menon, acting as a scribe for Claudy Merino MD. Provider Scribe Attestation: All medical record entries made by the Scribe were at my direction and personally dictated by me. I have reviewed the chart and agree that the record accurately reflects my personal performance of the history, physical exam, medical decision making, and the department course for this patient. I have also personally directed, reviewed, and agree with the discharge instructions and disposition. Disposition Discussed With : Vinnie Spencer - Clinical Impression Clinical Impression: Pyelonephritis - POA Present On Arrival: None - Disposition Disposition: Admitted as In-Patient Disposition Time: 01:00 Condition: FAIR
[2018-07-12 01:10] LABS: BANDS 1 % (0-2); LYMPHOCYTE 10 % (20-50); MONOCYTE 7 % (0-10); NEUTROPHIL 81 % (42-75); PLATELET ESTIMATE NORMAL (NORMAL); REACTIVE LYMPHOCYTES 1 % (0-0); TOTAL CELLS COUNTED 100
[2018-07-12 01:11] LABS: HYPOCHROMIC SLIGHT; LARGE PLATELETS PRESENT; TEARDROP CELLS SLIGHT
[2018-07-12 01:13] LABS: ANISOCYTOSIS SLIGHT
--- NOTE | 2018-07-12 02:31 | CP.PCM.HP ---
<Malinda Castillo - Last Filed: 07/12/18 03:11> History of Present Illness - History of Present Illness History of Present Illness: 63 yo female patient with PMHx of CKD/ESRD s/p Kidney transplant in 2005, DM type 2, HTN , Hyperlipidemia, diverticulitis presents to ED c/o intractable nbnb vomiting since 2 days ago. She reports she has been unable to tolerate fluids or daily medications due to the vomiting. Associated left flank pain, burning and frequency in urination. Otherwise she denies fever, chills, hematuria, headache, diarrhea or constipation, chest pain, palpitations, no known sick contacts. PMD: at [facility] PMH: HTN, DM type2, CKD s/p kidney transplant in 2005, HTN, HLD, Degenerative arthritis, Hx of Diverticulitis S/p Sigmoid Bowel resection with rectal anastomosis in 06/2017, Unsteady Gait (uses Walker), Non operative L hip fracture. Meds: Tacrolimus 5 po qd, Norvasc 5 po qd, Prednisone 5 po qd, CellCept 250 po qd, Sensipar 30 po qd, Vitamin D 1000 IU qd, Allergies: Vancomycin, Iodine, Cefazolin Social Hx: Negative for alcohol, tobacco, or dug use Family Hx: Mother asthma, Father was on dialysis and of kidney problems Surgical Hx: Ear Cyst surgery??, 2 C-Sections, Kidney transplant in 2005, Bowel Sigmoid resection 06/2017 Next of kin: son Tyrel Poon [phone] Code status: Full code Present on Admission - Present on Admission Any Indicators Present on Admission: No Review of Systems - Review of Systems All systems: reviewed and no additional remarkable complaints except (HPI) Past Patient History - Infectious Disease Hx of Infectious Diseases: None - Past Medical History & Family History Past Medical History?: Yes - Past Social History Smoking Status: Never Smoked - CARDIAC Hx Hypercholesterolemia: Yes Hx Hypertension: Yes - PULMONARY Hx Respiratory Disorders: No - NEUROLOGICAL Hx Neurological Disorder: No - HEENT Hx HEENT Problems: Yes Hx Glaucoma: Yes - RENAL Hx Chronic Kidney Disease: Yes - ENDOCRINE/METABOLIC Hx Diabetes Mellitus Type 2: Yes - HEMATOLOGICAL/ONCOLOGICAL Hx Anemia: Yes Hx Human Immunodeficiency Virus (HIV): No - INTEGUMENTARY Hx Dermatological Problems: No - MUSCULOSKELETAL/RHEUMATOLOGICAL Hx Arthritis: Yes - GASTROINTESTINAL Hx Diverticulitis: Yes - GENITOURINARY/GYNECOLOGICAL Hx Genitourinary Disorders: Yes Hx Urinary Tract Infection: Yes - PSYCHIATRIC Hx Psychophysiologic Disorder: No Hx Substance Use: No - SURGICAL HISTORY Hx Surgeries: Yes Hx Arteriovenous Shunt: Yes Hx Section: Yes (x2) Hx Kidney Transplant: Yes Hx Vascular Access Device: Yes Other/Comment: RIGHT KIDNEY TRANSPLANT - ANESTHESIA Hx Anesthesia: Yes Hx Anesthesia Reactions: No Hx Malignant Hyperthermia: No Meds Allergies/Adverse Reactions: Allergies Allergy/AdvReac Type Severity Reaction Status Date / Time cefazolin Allergy ITCHING Verified 07/11/18 21:56 iodine Allergy ITCHING Verified 07/11/18 21:56 vancomycin Allergy ITCHING Verified 07/11/18 21:56 Physical Exam - Constitutional Appears: No Acute Distress - Head Exam Head Exam: NORMAL INSPECTION - Eye Exam Eye Exam: EOMI Pupil Exam: PERRL - Respiratory Exam Respiratory Exam: Clear to Auscultation Bilateral, NORMAL BREATHING PATTERN. absent: Rhonchi, Wheezes - Cardiovascular Exam Cardiovascular Exam: REGULAR RHYTHM, +S1, +S2. absent: Tachycardia - GI/Abdominal Exam GI & Abdominal Exam: Normal Bowel Sounds, Soft, Tenderness (Left lower abdomen). absent: Distended - Back Exam Back exam: absent: CVA tenderness (L), CVA tenderness (R) - Neurological Exam Neurological exam: Alert, CN II-XII Intact, Oriented x3 - Skin Skin Exam: Dry, Warm Results - Vital Signs Recent Vital Signs: Last Vital Signs Temp 98.6 F 07/12/18 01:11 Pulse 76 07/12/18 02:12 Resp 18 07/12/18 02:12 BP 153/66 H 07/12/18 02:12 Pulse Ox 96 07/12/18 02:12 - Labs Result Diagrams: 07/11/18 23:40 07/11/18 23:40 Labs: Laboratory Results - last 24 hr 07/11/18 07/11/18 07/11/18 23:13 23:31 23:40 WBC 12.8 H D RBC 3.80 Hgb 11.7 L Hct 36.3 MCV 95.7 D MCH 30.7 MCHC 32.1 L RDW 15.6 H Plt Count 180 MPV 8.6 Neut % (Auto) 82.3 H Lymph % (Auto) 9.3 L [place] % (Auto) 7.8 Eos % (Auto) 0.2 Baso % (Auto) 0.4 Neut # (Auto) 10.5 H Lymph # (Auto) 1.2 [place] # (Auto) 1.0 H Eos # (Auto) 0.0 Baso # (Auto) 0.1 Neutrophils % (Manual) 81 H Band Neutrophils % 1 Lymphocytes % (Manual) 10 L Reactive Lymphs % 1 H Monocytes % (Manual) 7 Platelet Estimate Normal Large Platelets Present Hypochromasia (manual) Slight Anisocytosis (manual) Slight Tear Drop Cells Slight PT INR APTT pO2 VBG pH VBG pCO2 VBG HCO3 VBG Total CO2 VBG O2 Sat (Calc) VBG Base Excess VBG Potassium Glucose Lactate FiO2 Sodium Potassium Chloride Carbon Dioxide Anion Gap BUN Creatinine Est GFR ( Amer) Est GFR (Non-Af Amer) POC Glucose (mg/dL) 158 H Random Glucose Calcium Phosphorus Magnesium Total Bilirubin AST ALT Alkaline Phosphatase Troponin I Total Protein Albumin Globulin Albumin/Globulin Ratio Lipase Venous Blood Potassium Urine Color Yellow Urine Clarity Cloudy Urine pH 6.0 Ur Specific [place] 1.011 Urine Protein 100 Urine Glucose (UA) Neg Urine Ketones Negative Urine Blood Moderate Urine Nitrate Negative Urine Bilirubin Negative Urine Urobilinogen 0.2-1.0 Ur Leukocyte Esterase Large Urine RBC (Auto) 27 H Urine WBC Clumps (Auto) Few H Urine Microscopic WBC 204 H Ur Squamous Epith Cells 2 Urine Bacteria Many H 07/11/18 07/11/18 07/11/18 23:40 23:40 23:58 WBC RBC Hgb Hct MCV MCH MCHC RDW Plt Count MPV Neut % (Auto) Lymph % (Auto) [place] % (Auto) Eos % (Auto) Baso % (Auto) Neut # (Auto) Lymph # (Auto) [place] # (Auto) Eos # (Auto) Baso # (Auto) Neutrophils % (Manual) Band Neutrophils % Lymphocytes % (Manual) Reactive Lymphs % Monocytes % (Manual) Platelet Estimate Large Platelets Hypochromasia (manual) Anisocytosis (manual) Tear Drop Cells PT 12.7 INR 1.1 APTT 28.0 pO2 52 VBG pH 7.42 VBG pCO2 35 L VBG HCO3 23.6 VBG Total CO2 23.8 VBG O2 Sat (Calc) 90.8 H VBG Base Excess -1.3 L VBG Potassium 4.5 Glucose 161 H Lactate 1.5 FiO2 21.0 Sodium 139 136.0 Potassium 4.2 Chloride 110 H 108.0 H Carbon Dioxide 19 L Anion Gap 14 BUN 17 Creatinine 0.7 Est GFR ( Amer) > 60 Est GFR (Non-Af Amer) > 60 POC Glucose (mg/dL) Random Glucose 163 H Calcium 9.3 Phosphorus 3.3 Magnesium 1.3 L Total Bilirubin 0.6 AST 16 ALT 16 Alkaline Phosphatase 94 Troponin I < 0.0120 Total Protein 7.6 Albumin 4.0 Globulin 3.6 Albumin/Globulin Ratio 1.1 Lipase 67 Venous Blood Potassium 4.5 Urine Color Urine Clarity Urine pH Ur Specific [place] Urine Protein Urine Glucose (UA) Urine Ketones Urine Blood Urine Nitrate Urine Bilirubin Urine Urobilinogen Ur Leukocyte Esterase Urine RBC (Auto) Urine WBC Clumps (Auto) Urine Microscopic WBC Ur Squamous Epith Cells Urine Bacteria Assessment & Plan - Assessment and Plan (Free Text) Assessment: 63 yo female patient with PMHx of CKD/ESRD s/p Kidney transplant in 2005, DM type 2, HTN , Hyperlipidemia, diverticulitis admitted due to pyelonephritis. Plan: Pyelonephritis - afebrile, VSS - WBC 12.8, lactate 1.5, UA +esterase, RBC, urine WBC - abd CT: Moderate atrophy of the R and L kidney. There is no renal masses or renal calculi. No hydronephrosis. Normal visualized right and L ureter. - Cipro 1 dose on ED - continue levaquin IV daily - tylenol prn for fever - IV fluids - f/u blood and urine cx - labs for tomorrow am Nausea/Vomiting - improved - s/p reglan in Ed - start zofran prn - IV fluids CKD/ESRD s/p Kidney transplant - stable - BUN/Cr 17/0.7 - Outpatient office admin Dr. Gill - w/c with home meds Tacrolimus, Cellcept, prednisone - renal diet HTN - stable - Norvasc 5 po daily Hx of DM - stable - HbA1c 07/03/18: 6.5 - insulin coverage scale - hypoglycemia protocol PPX DVT: lovenox GI: protonix <Vinnie Spencer - Last Filed: 07/12/18 06:12> Results - Vital Signs Recent Vital Signs: Last Vital Signs Temp 99.2 F 07/12/18 04:42 Pulse 79 07/12/18 04:42 Resp 18 07/12/18 04:42 BP 148/64 12/22/18 04:42 Pulse Ox 98 07/12/18 04:42 - Labs Result Diagrams: 07/11/18 23:40 07/11/18 23:40 Labs: Laboratory Results - last 24 hr 07/11/18 07/11/18 07/11/18 23:13 23:31 23:40 WBC 12.8 H D RBC 3.80 Hgb 11.7 L Hct 36.3 MCV 95.7 D MCH 30.7 MCHC 32.1 L RDW 15.6 H Plt Count 180 MPV 8.6 Neut % (Auto) 82.3 H Lymph % (Auto) 9.3 L [place] % (Auto) 7.8 Eos % (Auto) 0.2 Baso % (Auto) 0.4 Neut # (Auto) 10.5 H Lymph # (Auto) 1.2 [place] # (Auto) 1.0 H Eos # (Auto) 0.0 Baso # (Auto) 0.1 Neutrophils % (Manual) 81 H Band Neutrophils % 1 Lymphocytes % (Manual) 10 L Reactive Lymphs % 1 H Monocytes % (Manual) 7 Platelet Estimate Normal Large Platelets Present Hypochromasia (manual) Slight Anisocytosis (manual) Slight Tear Drop Cells Slight PT INR APTT pO2 VBG pH VBG pCO2 VBG HCO3 VBG Total CO2 VBG O2 Sat (Calc) VBG Base Excess VBG Potassium Glucose Lactate FiO2 Sodium Potassium Chloride Carbon Dioxide Anion Gap BUN Creatinine Est GFR ( Amer) Est GFR (Non-Af Amer) POC Glucose (mg/dL) 158 H Random Glucose Calcium Phosphorus Magnesium Total Bilirubin AST ALT Alkaline Phosphatase Troponin I Total Protein Albumin Globulin Albumin/Globulin Ratio Lipase Venous Blood Potassium Urine Color Yellow Urine Clarity Cloudy Urine pH 6.0 Ur Specific [place] 1.011 Urine Protein 100 Urine Glucose (UA) Neg Urine Ketones Negative Urine Blood Moderate Urine Nitrate Negative Urine Bilirubin Negative Urine Urobilinogen 0.2-1.0 Ur Leukocyte Esterase Large Urine RBC (Auto) 27 H Urine WBC Clumps (Auto) Few H Urine Microscopic WBC 204 H Ur Squamous Epith Cells 2 Urine Bacteria Many H Blood Type Antibody Screen BBK History Checked 07/11/18 07/11/18 07/11/18 23:40 23:40 23:40 WBC RBC Hgb Hct MCV MCH MCHC RDW Plt Count MPV Neut % (Auto) Lymph % (Auto) [place] % (Auto) Eos % (Auto) Baso % (Auto) Neut # (Auto) Lymph # (Auto) [place] # (Auto) Eos # (Auto) Baso # (Auto) Neutrophils % (Manual) Band Neutrophils % Lymphocytes % (Manual) Reactive Lymphs % Monocytes % (Manual) Platelet Estimate Large Platelets Hypochromasia (manual) Anisocytosis (manual) Tear Drop Cells PT 12.7 INR 1.1 APTT 28.0 pO2 VBG pH VBG pCO2 VBG HCO3 VBG Total CO2 VBG O2 Sat (Calc) VBG Base Excess VBG Potassium Glucose Lactate FiO2 Sodium 139 Potassium 4.2 Chloride 110 H Carbon Dioxide 19 L Anion Gap 14 BUN 17 Creatinine 0.7 Est GFR ( Amer) > 60 Est GFR (Non-Af Amer) > 60 POC Glucose (mg/dL) Random Glucose 163 H Calcium 9.3 Phosphorus 3.3 Magnesium 1.3 L Total Bilirubin 0.6 AST 16 ALT 16 Alkaline Phosphatase 94 Troponin I < 0.0120 Total Protein 7.6 Albumin 4.0 Globulin 3.6 Albumin/Globulin Ratio 1.1 Lipase 67 Venous Blood Potassium Urine Color Urine Clarity Urine pH Ur Specific [place] Urine Protein Urine Glucose (UA) Urine Ketones Urine Blood Urine Nitrate Urine Bilirubin Urine Urobilinogen Ur Leukocyte Esterase Urine RBC (Auto) Urine WBC Clumps (Auto) Urine Microscopic WBC Ur Squamous Epith Cells Urine Bacteria Blood Type O POSITIVE Antibody Screen Negative BBK History Checked Patient has bt 07/11/18 07/12/18 23:58 04:33 WBC RBC Hgb Hct MCV MCH MCHC RDW Plt Count MPV Neut % (Auto) Lymph % (Auto) [place] % (Auto) Eos % (Auto) Baso % (Auto) Neut # (Auto) Lymph # (Auto) [place] # (Auto) Eos # (Auto) Baso # (Auto) Neutrophils % (Manual) Band Neutrophils % Lymphocytes % (Manual) Reactive Lymphs % Monocytes % (Manual) Platelet Estimate Large Platelets Hypochromasia (manual) Anisocytosis (manual) Tear Drop Cells PT INR APTT pO2 52 VBG pH 7.42 VBG pCO2 35 L VBG HCO3 23.6 VBG Total CO2 23.8 VBG O2 Sat (Calc) 90.8 H VBG Base Excess -1.3 L VBG Potassium 4.5 Glucose 161 H Lactate 1.5 FiO2 21.0 Sodium 136.0 Potassium Chloride 108.0 H Carbon Dioxide Anion Gap BUN Creatinine Est GFR ( Amer) Est GFR (Non-Af Amer) POC Glucose (mg/dL) 148 H Random Glucose Calcium Phosphorus Magnesium Total Bilirubin AST ALT Alkaline Phosphatase Troponin I Total Protein Albumin Globulin Albumin/Globulin Ratio Lipase Venous Blood Potassium 4.5 Urine Color Urine Clarity Urine pH Ur Specific [place] Urine Protein Urine Glucose (UA) Urine Ketones Urine Blood Urine Nitrate Urine Bilirubin Urine Urobilinogen Ur Leukocyte Esterase Urine RBC (Auto) Urine WBC Clumps (Auto) Urine Microscopic WBC Ur Squamous Epith Cells Urine Bacteria Blood Type Antibody Screen BBK History Checked Attending/Attestation - Attestation I have personally seen and examined this patient.: Yes I have fully participated in the care of the patient.: Yes I have reviewed all pertinent clinical information: Yes Notes (Text): 07/12/18 05:33 I saw, examined and discussed this patient with Dr Castillo. I agree with the assessment and plan above which represent my direct input. This is a 63 years old female with hx of ESRD on dialysis , then Right Renal Transplant, stopping dialysis. She comes with 5 days of vomiting with pain to the left lower abdomen radiating to the right groin.The patient will be treated for Acute Pyelonephr itis with Levaquin 750mg IV daily, IV Fluids. Pain medication. follow urine and blood cultures Stage I cecal ulcer is noted. Keep affected area clean and dry and pillows as padding to prevent worsening Ulcer. Vinnie Spencer MD 07/12/18 06:03
[2018-07-12] MEDS ORDERED: Glucagon Recombinant 1 mg Inj IM PRN (03:02)
[2018-07-12] MEDS ORDERED: Dextrose 50% SYRINGE Inj (50 ml) IV PRN (03:02)
[2018-07-12] MEDS: Sodium Chloride 0.9% 1,000 ML IV SCH ×2 (04:32→23:45)
[2018-07-12] MEDS ORDERED: Insulin Lispro (humaLOG) 100 Units/ml Inj SC SCH (07:00)
[2018-07-12] MEDS ORDERED: TACROLIMUS 5 MG PO SCH (09:00)
[2018-07-12] MEDS: levoFLOXacin 750 mg in D5W 750 MG/150 ML BAG IVPB SCH (09:00)
[2018-07-12] MEDS: Cholecalciferol 1,000 INTLU TAB PO SCH (13:13)
[2018-07-12] MEDS: TACROLIMUS 5 MG PO SCH ×2 (13:15→21:41)
[2018-07-12] MEDS: Enoxaparin 40 mg Syringe SC SCH (13:19)
--- NOTE | 2018-07-12 18:10 | RAD ---
Date of service: 07/11/2018 HISTORY: vomiting COMPARISON: Comparison made with prior chest radiograph dated 01/22/2018. FINDINGS: LUNGS: Minor linear bibasilar atelectasis and or scarring PLEURA: No significant pleural effusion identified, no pneumothorax apparent. CARDIOVASCULAR: No aortic atherosclerotic calcification present. Cardiomegaly.. No pulmonary vascular congestion. OSSEOUS STRUCTURES: No significant abnormalities. VISUALIZED UPPER ABDOMEN: Normal. OTHER FINDINGS: None. IMPRESSION: Minor linear bibasilar atelectasis and or scarring
--- NOTE | 2018-07-12 18:52 | CT ---
Date of service: 07/12/2018 PROCEDURE: CT Abdomen and Pelvis without. HISTORY: intractable vomiting multiple abdominal surgeries COMPARISON: Comparison made with prior CT scan the abdomen and pelvis dated 06/27/2017. TECHNIQUE: Contiguous helical/transaxial sections of the abdomen pelvis performed without oral or intravenous contrast material. Additional 2D sagittal and coronal reformats generated. Technique. Contrast dose: Radiation dose: Total exam DLP = 684.43 mGy-cm. This CT exam was performed using one or more of the following dose reduction techniques: Automated exposure control, adjustment of the mA and/or kV according to patient size, and/or use of iterative reconstruction technique. FINDINGS: LOWER THORAX: Heart size is enlarged. No significant pericardial effusion. There is a small to medium size hiatal hernia. Wall thickening of the distal esophagus likely due to protrusion gastric mucosa. Possibility of esophagitis not excluded. Nodular and curvilinear atelectasis/scarring changes present both lung bases including the lingular and middle lobe regions. LIVER: The liver exhibits normal size measuring just over 12 cm in CC dimension. No obvious hepatic mass collection or calcification GALLBLADDER AND BILE DUCTS: Gallbladder is physiologically distended.. Layering intraluminal gallbladder calculus is present. There may also be some with some layering sludge is well. PANCREAS: Un pancreas appears atrophic and fatty replaced. No pancreatic mass collection or calcification. SPLEEN: Unremarkable. ADRENALS: No adrenal lesions. KIDNEYS AND URETERS: [place] kidneys are markedly atrophic with what appear to represent vascular calcifications. Clinical correlation with history recommended. Transplant kidney right pelvis is present. There appear to be 1 or 2 small cysts along the anterior cortical margin of the left kidney. No evidence of nephrolithiasis or hydronephrosis spine VASCULATURE: Unremarkable. No aortic aneurysm. No aortic atherosclerotic calcification or mural plaque present. BOWEL: Evaluation of the bowel is somewhat limited due to the lack of oral contrast material. Stomach is essentially collapsed. Visualized loops of small bowel exhibit normal contour and caliber. No evidence of acute mechanical small bowel obstruction. Large amount of stool is seen within the cecum and ascending as well as proximal to mid transverse colon consistent with fecal retention/constipation. The remaining colon is relatively collapsed.. There is slight rectal wall thickening a. Apparent postoperative changes of partial resection sigmoid colon with an anastomosis present.;. Consider follow-up of colonoscopy to exclude an invasive wall lesion. APPENDIX: Appendix is not seen with complete certainty on this study however no evidence acute appendicitis seen. PERITONEUM: Unremarkable. No free fluid. No free air. LYMPH NODES: Unremarkable. No enlarged lymph nodes. BLADDER: Urinary bladder is incompletely distended which may in part account for thick-walled appearance. Possibility of a cystitis not excluded. REPRODUCTIVE: Peripheral of uterine calcifications likely vascular in origin. The uterus however somewhat bulky in appearance; rule out uterine fibroids. BONES: Chronic appearing compression deformities of several lumbar segments again seen. No acute compression fractures no retropulsed fragments. OTHER FINDINGS: None. IMPRESSION: Apparent postoperative changes of partial sigmoidectomy with anastomosis seen in the left lower pelvis. Rectal wall thickening of is present. Follow-up on colonoscopy is recommended to exclude the possibility of a invasive wall lesion. Findings suggest mild constipation. Appendix is not seen with complete certainty however no inflammatory changes right lower quadrant of the abdomen. No evidence of acute mechanical small bowel obstruction. Cholelithiasis. Atrophic minto kidneys with transplant kidney right pelvis. Urinary bladder wall thickening or distention however urinalysis correlation recommended to exclude cystitis. See above discussion for additional details and findings.
[2018-07-13] MEDS: Sodium Chloride 0.9% 1,000 ML IV SCH ×2 (03:50→13:15)
[2018-07-13 07:43] LABS: BASO % 0.3 % (0.0-2.0); EOS % 0.5 % (0.0-4.0); HEMOGLOBIN 11.5 g/dL (12.0-16.0); LYMPH # 1.4 K/uL (1.0-4.3); LYMPH % 17.2 % (20.0-40.0); MEAN CELL VOLUME 94.7 fl (81.0-99.0); MEAN CORPUSCULAR HEMOGLOBIN 30.9 pg (27.0-31.0); MEAN CORPUSCULAR HGB CONC 32.6 g/dL (33.0-37.0); MEAN PLATELET VOLUME 8.4 fl (7.2-11.7); MONO # 0.9 K/uL (0.0-0.8); MONO % 10.8 % (0.0-10.0); NEUT # 5.9 K/uL (1.8-7.0); NEUT % 71.2 % (50.0-75.0); NRBC % 0.1 % (0.0-0.0); RBC 3.71 Mil/uL (3.80-5.20); RED CELL DISTRIBUTION WIDTH 15.7 % (11.5-14.5); WHITE BLOOD COUNT 8.3 K/uL (4.8-10.8)
[2018-07-13 08:29] LABS: ALB/GLOB RATIO 1.1 (1.0-2.1); ALBUMIN 3.6 g/dL (3.5-5.0); ALT/SGPT 16 U/L (9-52); AST/SGOT 16 U/L (14-36); BLOOD UREA NITROGEN 14 mg/dl (7-17); CALCIUM 8.9 mg/dL (8.4-10.2); GFR NON-AFRICAN AMERICAN > 60
[2018-07-13] MEDS: TACROLIMUS 5 MG PO SCH ×2 (09:37→16:46)
[2018-07-13] MEDS: Enoxaparin 40 mg Syringe SC SCH (09:38)
[2018-07-13] MEDS: Cholecalciferol 1,000 INTLU TAB PO SCH (09:39)
[2018-07-13] MEDS: Pantoprazole 40 mg EC Tab PO SCH ×2 (09:40→13:14)
[2018-07-13] MEDS: levoFLOXacin 750 mg in D5W 750 MG/150 ML BAG IVPB SCH (12:34)
--- NOTE | 2018-07-13 12:50 | CP.PCM.PN ---
Subjective - Date & Time of Evaluation Date of Evaluation: 07/13/18 Time of Evaluation: 11:00 - Subjective Subjective: Patient seen at bedside this AM in good spirits. Ate breakfast this AM. States producing "a lot" of urine. No BM since in the hosp but just started eating. Afebrile and no acute events overnight. Objective - Vital Signs/Intake and Output Vital Signs (last 24 hours): Temp Pulse Resp BP Pulse Ox 98.2 F 85 20 158/73 H 99 07/13/18 08:04 07/13/18 08:04 07/13/18 08:04 07/13/18 09:39 07/13/18 08:04 - Medications Medications: Current Medications Acetaminophen (Tylenol 325mg Tab) 650 mg PO Q6 PRN PRN Reason: Other Amlodipine Besylate (Norvasc) 5 mg PO DAILY [facility] Last Admin: 07/13/18 09:39 Dose: 5 mg Ascorbic Acid (Vitamin C 500 Mg Tab) 500 mg PO DAILY [facility] Last Admin: 07/13/18 09:39 Dose: 500 mg Cholecalciferol (Vitamin D) 1,000 intlu PO DAILY [facility] Last Admin: 07/13/18 09:39 Dose: 1,000 intlu Cinacalcet (Sensipar) 30 mg PO DAILY [facility] Last Admin: 07/13/18 09:39 Dose: 30 mg Dextrose (Dextrose 50% Inj) 0 ml IV STAT PRN; Protocol PRN Reason: Hypoglycemia Protocol Dextrose (Glutose 15) 0 gm PO ONCE PRN; Protocol PRN Reason: Hypoglycemia Protocol Enoxaparin Sodium (Lovenox) 40 mg SC DAILY [facility]; Protocol Last Admin: 07/13/18 09:38 Dose: 40 mg Glucagon (Glucagen Diagnostic Kit) 0 mg IM STAT PRN; Protocol PRN Reason: Hypoglycemia Protocol Home Med (Tacrolimus [Prograf]) 5 mg PO BID [facility] Last Admin: 07/13/18 09:37 Dose: 5 mg Levofloxacin/Dextrose (Levaquin 750mg) 750 mg in 150 mls @ 100 mls/hr IVPB DAILY [facility]; Protocol Last Admin: 07/13/18 12:34 Dose: 100 mls/hr Insulin Human Lispro (Humalog) 0 units SC ACCU-CHECK [facility]; Protocol Last Admin: 07/12/18 07:15 Dose: Not Given Ketorolac Tromethamine (Toradol) 30 mg IVP Q6 PRN PRN Reason: Pain, severe (8-10) Mycophenolate Mofetil (Cellcept Cap) 250 mg PO BID [facility] Last Admin: 07/13/18 09:38 Dose: 250 mg Ondansetron HCl (Zofran Inj) 4 mg IVP Q4H PRN PRN Reason: Nausea/Vomiting Last Admin: 07/12/18 11:16 Dose: 4 mg Pantoprazole Sodium (Protonix Ec Tab) 40 mg PO DAILY [facility] Last Admin: 07/13/18 09:40 Dose: 40 mg Prednisone (Prednisone Tab) 5 mg PO DAILY [facility] Last Admin: 07/13/18 09:40 Dose: 5 mg - Labs Labs: 07/13/18 05:30 07/13/18 05:30 PT 12.7 Seconds (9.8-13.1) 07/11/18 23:40 INR 1.1 07/11/18 23:40 APTT 28.0 Seconds (25.6-37.1) 07/11/18 23:40 - Constitutional Appears: Non-toxic, Chronically Ill - Eye Exam Eye Exam: EOMI, PERRL - ENT Exam ENT Exam: Mucous Membranes Moist - Respiratory Exam Respiratory Exam: Clear to Ausculation Bilateral, NORMAL BREATHING PATTERN. absent: Respiratory Distress - Cardiovascular Exam Cardiovascular Exam: Irregular Rhythm, +S1, +S2. absent: Gallop - GI/Abdominal Exam GI & Abdominal Exam: Soft, Normal Bowel Sounds. absent: Guarding, Rigid, Tenderness - Extremities Exam Extremities Exam: Normal Capillary Refill. absent: Calf Tenderness, Joint Swel ling - Neurological Exam Neurological Exam: Alert, Awake, Oriented x3 - Psychiatric Exam Psychiatric exam: Normal Affect, Normal Mood - Skin Skin Exam: Normal Color, Warm Assessment and Plan - Assessment and Plan (Free Text) Assessment: 63 yo female patient with PMHx of CKD/ESRD s/p Kidney transplant in 2005, DM type 2, HTN , Hyperlipidemia, diverticulitis admitted due to UTI Complicated UTI - Acute, improved - Patient immunocompromised due to chronic immunosupresion treatment - Hx of ESBL E.Coli in the past - afebrile, VSS - abd CT: Moderate atrophy of the R and L kidney. There is no renal masses or renal calculi. No hydronephrosis. Normal visualized right and L ureter. - continue levaquin IV daily. - UCx growing Gram neg rods. I called lab today and requested Levaquin to be added to sensitivity. Results for tomorrow - Nausea/Vomiting resolved. Ate breakfast this AM. 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
--- NOTE | 2018-07-13 21:34 | CARD ---
APPROVED REPORT Date of service: 07/11/2018 EKG Measurement Heart [id number] <Conclusion> Normal sinus rhythm with sinus arrhythmia Normal ECG
[2018-07-14 06:12] LABS: HEMOGLOBIN 11.7 g/dL (12.0-16.0); MEAN CELL VOLUME 96.5 fl (81.0-99.0); MEAN CORPUSCULAR HEMOGLOBIN 31.1 pg (27.0-31.0); MEAN CORPUSCULAR HGB CONC 32.2 g/dL (33.0-37.0); RBC 3.76 Mil/uL (3.80-5.20); WHITE BLOOD COUNT 7.4 K/uL (4.8-10.8)
[2018-07-14 06:26] LABS: BLOOD UREA NITROGEN 20 mg/dl (7-17); CALCIUM 9.1 mg/dL (8.4-10.2); GFR NON-AFRICAN AMERICAN 56
[2018-07-14 08:19] VITALS: BP 149/87; PULSE 76; RESP 20; TEMP 98; O2SAT 99
[2018-07-14] MEDS: levoFLOXacin 750 mg in D5W 750 MG/150 ML BAG IVPB SCH ×2 (09:38→13:44)
[2018-07-14] MEDS: TACROLIMUS 5 MG PO SCH (09:39)
[2018-07-14] MEDS: Enoxaparin 40 mg Syringe SC SCH (09:39)
[2018-07-14] MEDS: Pantoprazole 40 mg EC Tab PO SCH (09:40)
[2018-07-14] MEDS: Cholecalciferol 1,000 INTLU TAB PO SCH (09:40)
[2018-07-14] MEDS ORDERED: levoFLOXacin 750 MG TAB PO SCH (10:30)
--- NOTE | 2018-07-14 12:04 | CP.PCM.DIS ---
Provider - Provider Date of Admission: 07/12/18 02:06 Attending physician: Vinnie Spencer Consults: 07/13/18 08:00 Wound Care [Nursing Referral for Wound Care] Routine Comment: Physician Instructions: Reason For Exam: Sacral area redness Time Spent in preparation of Discharge (in minutes): 35 Diagnosis - Discharge Diagnosis (1) Complicated UTI (urinary tract infection) Status: Acute Comment: Improved. C/w PO abx (2) Vomiting Status: Resolved Hospital Course - Lab Results Lab Results: Micro Results 07/11/18 09:00 Urine Urine Culture - Final Escherichia Coli 07/11/18 23:30 Blood-Venous Blood Culture - Preliminary NO GROWTH AFTER 48 HOURS 07/11/18 23:40 Blood-Venous Blood Culture - Preliminary NO GROWTH AFTER 48 HOURS Most Recent Lab Values WBC 7.4 K/uL (4.8-10.8) 07/14/18 05:20 RBC 3.76 Mil/uL (3.80-5.20) L 07/14/18 05:20 Hgb 11.7 g/dL (12.0-16.0) L 07/14/18 05:20 Hct 36.3 % (34.0-47.0) 07/14/18 05:20 MCV 96.5 fl (81.0-99.0) 07/14/18 05:20 MCH 31.1 pg (27.0-31.0) H 07/14/18 05:20 MCHC 32.2 g/dL (33.0-37.0) L 07/14/18 05:20 RDW 15.0 % (11.5-14.5) H 07/14/18 05:20 Plt Count 201 K/uL (130-400) 07/14/18 05:20 MPV 8.4 fl (7.2-11.7) 07/13/18 05:30 Neut % (Auto) 71.2 % (50.0-75.0) 07/13/18 05:30 Lymph % (Auto) 17.2 % (20.0-40.0) L 07/13/18 05:30 [place] % (Auto) 10.8 % (0.0-10.0) H 07/13/18 05:30 Eos % (Auto) 0.5 % (0.0-4.0) 07/13/18 05:30 Baso % (Auto) 0.3 % (0.0-2.0) 07/13/18 05:30 Neut # (Auto) 5.9 K/uL (1.8-7.0) 07/13/18 05:30 Lymph # (Auto) 1.4 K/uL (1.0-4.3) 07/13/18 05:30 [place] # (Auto) 0.9 K/uL (0.0-0.8) H 07/13/18 05:30 Eos # (Auto) 0.0 K/uL (0.0-0.7) 07/13/18 05:30 Baso # (Auto) 0.0 K/uL (0.0-0.2) 07/13/18 05:30 Neutrophils % (Manual) 81 % (42-75) H 07/11/18 23:40 Band Neutrophils % 1 % (0-2) 07/11/18 23:40 Lymphocytes % (Manual) 10 % (20-50) L 07/11/18 23:40 Reactive Lymphs % 1 % (0-0) H 07/11/18 23:40 Monocytes % (Manual) 7 % (0-10) 07/11/18 23:40 Platelet Estimate Normal (NORMAL) 07/11/18 23:40 Large Platelets Present 07/11/18 23:40 Hypochromasia (manual) Slight 07/11/18 23:40 Anisocytosis (manual) Slight 07/11/18 23:40 Tear Drop Cells Slight 07/11/18 23:40 PT 12.7 Seconds (9.8-13.1) 07/11/18 23:40 INR 1.1 07/11/18 23:40 APTT 28.0 Seconds (25.6-37.1) 07/11/18 23:40 pO2 52 mm/Hg (30-55) 07/11/18 23:58 VBG pH 7.42 (7.32-7.43) 07/11/18 23:58 VBG pCO2 35 mmHg (40-60) L 07/11/18 23:58 VBG HCO3 23.6 mmol/L 07/11/18 23:58 VBG Total CO2 23.8 mmol/L (22-28) 07/11/18 23:58 VBG O2 Sat (Calc) 90.8 % (40-65) H 07/11/18 23:58 VBG Base Excess -1.3 mmol/L (0.0-2.0) L 07/11/18 23:58 VBG Potassium 4.5 mmol/L (3.6-5.2) 07/11/18 23:58 Sodium 136.0 mmol/L (132-148) 07/11/18 23:58 Chloride 108.0 mmol/L (98-107) H 07/11/18 23:58 Glucose 161 mg/dL (65-105) H 07/11/18 23:58 Lactate 1.5 mmol/L (0.7-2.1) 07/11/18 23:58 FiO2 21.0 % 07/11/18 23:58 Sodium 141 mmol/l (132-148) 07/14/18 05:20 Potassium 3.7 MMOL/L (3.6-5.0) 07/14/18 05:20 Chloride 107 mmol/L (98-107) 07/14/18 05:20 Carbon Dioxide 25 mmol/L (22-30) 07/14/18 05:20 Anion Gap 13 (10-20) 07/14/18 05:20 BUN 20 mg/dl (7-17) H 07/14/18 05:20 Creatinine 1.0 mg/dl (0.7-1.2) 07/14/18 05:20 Est GFR ( Amer) > 60 07/14/18 05:20 Est GFR (Non-Af Amer) 56 07/14/18 05:20 POC Glucose (mg/dL) 110 mg/dL (65-110) 07/14/18 11:25 Random Glucose 100 mg/dL (65-105) 07/14/18 05:20 Calcium 9.1 mg/dL (8.4-10.2) 07/14/18 05:20 Phosphorus 3.3 mg/dl (2.5-4.5) 07/11/18 23:40 Magnesium 1.3 MG/DL (1.6-2.3) L 07/11/18 23:40 Total Bilirubin 0.7 mg/dl (0.2-1.3) 07/13/18 05:30 AST 16 U/L (14-36) 07/13/18 05:30 ALT 16 U/L (9-52) 07/13/18 05:30 Alkaline Phosphatase 76 U/L (38-126) 07/13/18 05:30 Troponin I < 0.0120 ng/mL (0.00-0.120) 07/11/18 23:40 Total Protein 6.9 G/DL (6.3-8.2) 07/13/18 05:30 Albumin 3.6 g/dL (3.5-5.0) 07/13/18 05:30 Globulin 3.3 gm/dL (2.2-3.9) 07/13/18 05:30 Albumin/Globulin Ratio 1.1 (1.0-2.1) 07/13/18 05:30 Lipase 67 U/L (23-300) 07/11/18 23:40 Venous Blood Potassium 4.5 mmol/L (3.6-5.2) 07/11/18 23:58 Urine Color Yellow (YELLOW) 07/11/18 23:31 Urine Clarity Cloudy (Clear) 07/11/18 23:31 Urine pH 6.0 (5.0-8.0) 07/11/18 23:31 Ur Specific [place] 1.011 (1.003-1.030) 07/11/18 23:31 Urine Protein 100 mg/dL (NEGATIVE) 07/11/18 23:31 Urine Glucose (UA) Neg mg/dL (NEGATIVE) 07/11/18 23:31 Urine Ketones Negative mg/dL (NEGATIVE) 07/11/18 23:31 Urine Blood Moderate (NEGATIVE) 07/11/18 23:31 Urine Nitrate Negative (NEGATIVE) 07/11/18 23:31 Urine Bilirubin Negative (NEGATIVE) 07/11/18 23:31 Urine Urobilinogen 0.2-1.0 mg/dL (0.2-1.0) 07/11/18 23:31 Ur Leukocyte Esterase Large [place]o/uL (Negative) 07/11/18 23:31 Urine RBC (Auto) 27 /hpf (0-3) H 07/11/18 23:31 Urine WBC Clumps (Auto) Few /hpf (NONE) H 07/11/18 23:31 Urine Microscopic WBC 204 /hpf (0-5) H 07/11/18 23:31 Ur Squamous Epith Cells 2 /hpf (0-5) 07/11/18 23:31 Urine Bacteria Many (<OCC) H 07/11/18 23:31 Blood Type O POSITIVE 07/11/18 23:40 Antibody Screen Negative 07/11/18 23:40 BBK History Checked Patient has bt 07/11/18 23:40 - Hospital Course Hospital Course: 63 yo female patient with PMHx of CKD/ESRD s/p Kidney transplant in 2005, DM type 2, HTN , Hyperlipidemia, diverticulitis presented to ED c/o intractable nbnb vomiting and admitted to hosp for pyelonephritis??!. Patient was started on IV abx Levaquin, she responded well and vomiting nausea resolved. CT scan at ED didnt mention the presence of signs suspecting Pyelo. Patient remained afebrile with normal WBC for more than 24 hours. Her UCx showed E.Coli, patient allergic to cephalosporins, resistant to cipro and bactrim and intermediate to Levaquin. Since patient responded well to LEvaquin since admission and today she is asymptomatic, she is being DC home to c/w PO Levaquin for 7 more days. Discharge Exam - Head Exam Head Exam: ATRAUMATIC, NORMOCEPHALIC - Eye Exam Eye Exam: PERRL - ENT Exam ENT Exam: Mucous Membranes Moist - Respiratory Exam Respiratory Exam: Clear to PA & Lateral, NORMAL BREATHING PATTERN, UNREMARKABLE - Cardiovascular Exam Cardiovascular Exam: +S1, +S2. absent: Gallop - GI/Abdominal Exam GI & Abdominal Exam: Normal Bowel Sounds, Soft, Unremarkable - Extremities Exam Extremities exam: normal capillary refill - Back Exam Back exam: absent: CVA tenderness (L), CVA tenderness (R) - Neurological Exam Neurological exam: Alert, Oriented x3 - Skin Skin Exam: Normal Color, Warm Discharge Plan - Discharge Medications Prescriptions: levoFLOXacin [Levaquin] 750 mg PO DAILY #14 tab - Follow Up Plan Condition: STABLE Disposition: HOME/ ROUTINE Patient education suggested?: Yes Instructions: Urinary Tract Infection, Adult (DC), Nausea and Vomiting, Adult (DC) Additional Instructions: follow up with primary MD 1 week Referrals: [facility] [place] [Outside] Ryan Fried MD [Family Provider] -
== END 2018-07-14 15:49 | disposition home or self-care (01) | DRG 320 ==
LOC: H.ER 21:41 → H.ERHOLD 07-12 02:06 → H.MEDSURG1 07-12 16:18
PROVIDERS: ADMIT Internal Medicine; ATTEND Internal Medicine
DX: N10 Acute pyelonephritis (principal); E11.22 Type 2 diabetes mellitus with diabetic chronic kidney disease; I13.11 Hypertensive heart and chronic kidney disease without heart failure, with stage 5 chronic kidney disease, or end stage renal disease; Z94.0 Kidney transplant status; N18.6 End stage renal disease; B96.20 Unspecified Escherichia coli [E. coli] as the cause of diseases classified elsewhere; Z16.23 Resistance to quinolones and fluoroquinolones; E78.5 Hyperlipidemia, unspecified; E78.00 Pure hypercholesterolemia, unspecified; K57.92 Diverticulitis of intestine, part unspecified, without perforation or abscess without bleeding; Z86.19 Personal history of other infectious and parasitic diseases; Z87.440 Personal history of urinary (tract) infections; Z79.84 Long term (current) use of oral hypoglycemic drugs; Z88.1 Allergy status to other antibiotic agents; Z91.041 Radiographic dye allergy status

== ENCOUNTER 2018-07-23 12:44 | Emergency (ER) | payer MEDICAID ==
[2018-07-23 15:42] VITALS: RESP 20; TEMP 98; O2SAT 98
[2018-07-23 15:46] VITALS: PULSE 78
--- NOTE | 2018-07-23 15:48 | ED PDOC ---
HPI: Back Time Seen by Provider: 07/23/18 15:44 Chief Complaint (Nursing): Back Pain Chief Complaint (Provider): Flank Pain History Per: Patient History/Exam Limitations: no limitations Onset/Duration Of Symptoms: Days (x2) Current Symptoms Are (Timing): Still Present Additional Complaint(s): 63 year old female presents to the ED for evaluation of flank pain for the past two days. Patient is s/p a right renal transplant in 2005. Otherwise denies nausea, vomiting, diarrhea, and urinary sx. PMD: none provided Past Medical History Reviewed: Historical Data, Nursing Documentation, Vital Signs Vital Signs: Last Vital Signs Temp 98 F 07/23/18 15:44 Pulse 78 07/23/18 15:44 Resp 20 07/23/18 15:44 BP 150/70 07/23/18 15:44 Pulse Ox 98 07/23/18 15:44 - Medical History PMH: Anemia, Arthritis, Back Problems, Diabetes, Diverticulitis, Fractures (righthip), HTN, Hypercholesterolemia, Hyperthyroidism, End Stage Renal Disease (s/p transplant), Chronic Kidney Disease Denies: HIV - Surgical History Surgical History: Other surgeries: renal transplant; bilateral arm shunts - Family History Family History: States: Unknown Family Hx - Social History Current smoker - smoking cessation education provided: No Alcohol: None Drugs: Denies - Home Medications Home Medications: Ambulatory Orders Medication Instructions Recorded Cholecalciferol (Vitamin D3) 1 tab PO DAILY 07/12/18 [Vitamin D3] Cinacalcet [Sensipar] 30 mg PO DAILY 07/12/18 Cranberry Fruit Extract/Vit C [Azo 2 cap PO DAILY 07/12/18 Cranberry Softgel] Gabapentin [Neurontin] 300 mg PO HS 07/12/18 Mycophenolate [Cellcept Cap] 250 mg PO BID 07/12/18 Prednisone [Eber] 5 mg PO DAILY 07/12/18 Tacrolimus [Prograf] 5 mg PO BID 07/12/18 amLODIPine [Norvasc] 5 mg PO DAILY 07/12/18 Levofloxacin [Levaquin] 750 mg PO DAILY #14 tablet 07/14/18 - Allergies Allergies/Adverse Reactions: Allergies Allergy/AdvReac Type Severity Reaction Status Date / Time cefazolin Allergy ITCHING Verified 07/23/18 15:39 iodine Allergy ITCHING Verified 07/23/18 15:39 vancomycin Allergy ITCHING Verified 07/23/18 15:39 Review of Systems ROS Statement: Except As Marked, All Systems Reviewed And Found Negative Gastrointestinal: Negative for: Nausea, Vomiting, Diarrhea Genitourinary Female: Negative for: Dysuria, Frequency, Incontinence Musculoskeletal: Positive for: Other (bilateral flank pain) Physical Exam - Reviewed Nursing Documentation Reviewed: Yes Vital Signs Reviewed: Yes - Physical Exam Appears: Positive for: No Acute Distress Head Exam: Positive for: ATRAUMATIC, NORMOCEPHALIC Skin: Positive for: Normal Color, Warm Eye Exam: Positive for: Normal appearance Neck: Positive for: Normal, Painless ROM, Supple Cardiovascular/Chest: Positive for: Regular Rate, Rhythm Respiratory: Positive for: Normal Breath Sounds. Negative for: Respiratory Distress Gastrointestinal/Abdominal: Positive for: Normal Exam, Soft. Negative for: Tenderness Back: Positive for: Normal Inspection. Negative for: L CVA Tenderness, R CVA Tenderness, Vertebral Tenderness Extremity: Positive for: Normal ROM (all extremities) Neurologic/Psych: Positive for: Alert, Oriented (x3) - ECG O2 Sat by Pulse Oximetry: 98 (RA) Pulse Ox Interpretation: Normal Medical Decision Making Medical Decision Making: Time: 1410 Initial Impression: flank pain Initial Plan: --CT abd/pelvis w/o contrast --CMP --CBC with differential --Urine culture --Urinalysis Scribe Attestation: Documented by Coreen Ojeda, acting as a scribe for Philip German MD. Provider Scribe Attestation: All medical record entries made by the Scribe were at my direction and personally dictated by me. I have reviewed the chart and agree that the record accurately reflects my personal performance of the history, physical exam, medical decision making, and the department course for this patient. I have also personally directed, reviewed, and agree with the discharge instructions and disposition. Disposition - Clinical Impression Clinical Impression: Low back pain - Patient ED Disposition Is Patient to be Admitted: Transfer of Care - Disposition Disposition: Transfer of Care Disposition Time: 16:26 Condition: FAIR Forms: [employer] (Colombian) Patient Signed Over To: Ellie Goddard
--- NOTE | 2018-07-23 16:16 | CT ---
Date of service: 07/23/2018 PROCEDURE: CT Abdomen and Pelvis without intravenous contrast HISTORY: r/o kidney stone COMPARISON: 07/12/2018. TECHNIQUE: CT scan of the abdomen and pelvis was performed without administration of intravenous contrast. Oral contrast was not administered. Coronal and sagittal reformatted images were obtained. . Radiation dose: Total exam DLP = 698.07 mGy-cm. This CT exam was performed using one or more of the following dose reduction techniques: Automated exposure control, adjustment of the mA and/or kV according to patient size, and/or use of iterative reconstruction technique. FINDINGS: LOWER THORAX: There is subsegmental atelectasis in the visualized lungs. Mild cardiomegaly and atherosclerotic coronary artery calcifications present. LIVER: Normal in size. No intrahepatic ductal dilatation. GALLBLADDER AND BILE DUCTS: There are small calcified gallstones. No biliary dilatation PANCREAS: Normal in size. No ductal dilatation. SPLEEN: Normal in size. ADRENALS: Normal in size. No discrete nodule. KIDNEYS AND URETERS: Severe bilateral renal cortical atrophy. No nephrolithiasis or hydronephrosis. A right lower quadrant renal transplant is normal in size. There are stable simple cysts in the upper pole of the transplant the VASCULATURE: No aortic aneurysm. There are mild aortic atherosclerotic calcifications present. BOWEL: The small bowel loops are normal in caliber. There are postsurgical changes of partial sigmoid colon resection.. There is moderate amount of stool in the colon. No bowel dilatation or wall thickening. No bowel obstruction. APPENDIX: Not visualized. There are no inflammatory changes in the right lower quadrant. PERITONEUM: No free fluid. No free air. LYMPH NODES: No enlarged lymph nodes. BLADDER: Well distended and grossly normal in appearance. REPRODUCTIVE: The uterus is normal in size BONES: Again seen are age indeterminate but likely chronic osteoporotic compression fracture deformities in the L1, L2 and L3 vertebral bodies. OTHER FINDINGS: There is a small sliding hiatal hernia. IMPRESSION: No acute abdominal or pelvic abnormality. No evidence of nephrolithiasis or hydronephrosis in the transplant kidney in the right lower quadrant. Stable simple cysts in the upper pole of the transplant kidney. Postsurgical changes of partial sigmoid colon resection. Constipation. No evidence for bowel obstruction. Moderate sliding hiatal hernia. Cholelithiasis.
--- NOTE | 2018-07-23 16:26 | ED PDOC ---
- Laboratory Results Result Diagrams: 07/23/18 17:37 07/23/18 18:00 - ECG O2 Sat by Pulse Oximetry: 98 (RA) Disposition - Clinical Impression Clinical Impression: UTI (urinary tract infection) - POA Present On Arrival: None - Disposition Referrals: [facility] [Outside] Disposition: Routine/Home Disposition Time: 19:11 Condition: STABLE Prescriptions: Nitrofurantoin Macrocrystals [Macrobid] 100 mg PO BID #13 cap Instructions: Urinary Tract Infections in Adults Forms: [employer] (Ecuadorean) Print Language: MACEDONIAN Addendum Addendum: 07/23/18 16:26 Pt signed out by Dr. German pending labs and urine.
[2018-07-23 17:37] LABS: SQUAMOUS EPITHIAL 3 /hpf (0-5); URINE BACTERIA FEW (<OCC); URINE BILIRUBIN NEGATIVE (NEGATIVE); URINE BLOOD SMALL (NEGATIVE); URINE CLARITY CLEAR (Clear); URINE COLOR YELLOW (YELLOW); URINE GLUCOSE (UA) NEG (NEGATIVE); URINE LEUKOCYTE ESTERASE NEG Leu/uL (Negative); URINE PROTEIN 30 mg/dL (NEGATIVE); URINE UROBILINOGEN 0.2-1.0 mg/dL (0.2-1.0)
[2018-07-23 17:40] LABS: HEMOGLOBIN 12.4 g/dL (12.0-16.0); MEAN CELL VOLUME 95.3 fl (81.0-99.0); MEAN CORPUSCULAR HEMOGLOBIN 30.6 pg (27.0-31.0); MEAN CORPUSCULAR HGB CONC 32.1 g/dL (33.0-37.0); RBC 4.04 Mil/uL (3.80-5.20); WHITE BLOOD COUNT 8.6 K/uL (4.8-10.8)
[2018-07-23 19:03] LABS: ALB/GLOB RATIO 1.2 (1.0-2.1); ALBUMIN 3.8 g/dL (3.5-5.0); ALT/SGPT 22 U/L (9-52); AST/SGOT 19 U/L (14-36); BLOOD UREA NITROGEN 18 mg/dl (7-17); CALCIUM 9.4 mg/dL (8.4-10.2); GFR NON-AFRICAN AMERICAN > 60
[2018-07-23 19:52] VITALS: BP 145/70
== END 2018-07-23 18:30 | disposition home or self-care (01) ==
LOC: H.EDDOWN 12:44
DX: M54.5 Low back pain (principal); N39.0 Urinary tract infection, site not specified

== ENCOUNTER 2018-11-12 06:04 | Inpatient (IN) | payer MEDICAID ==
[2018-11-12 06:11] VITALS: BMI 28.1
[2018-11-12] MEDS ORDERED: Sodium Chloride 0.9% 1,000 ML IV STA (08:02)
--- NOTE | 2018-11-12 08:04 | ED PDOC ---
HPI: Abdomen Time Seen by Provider: 11/12/18 06:10 Chief Complaint (Nursing): GI Problem Chief Complaint (Provider): GI Problem History Per: Patient History/Exam Limitations: no limitations Onset/Duration Of Symptoms: Days (x2) Current Symptoms Are (Timing): Still Present Associated Symptoms: Nausea, Vomiting, Back Pain, Urinary Symptoms. denies: Fever, Diarrhea, Chest Pain Additional Complaint(s): 63 year old female with a past medical history of hypertension, diabetes, arthritis, and diverticulitis who is presenting to the ED for evaluation of dizziness and vomiting onset 2 days ago. Patient states that dizziness is like a room spinning sensation and reports a history of vertigo with similar episodes in the past. Patient also complains of urinary frequency and right sided back pain. Of note, patient is s/p right sided renal transplant that happened in 2005. She denies any abdominal pain, diarrhea, fevers, chest pain, or shortness of breath. Patient offers no other medical complaints at this time. PMD: [facility] DR. BLEVINS Past Medical History Reviewed: Historical Data, Nursing Documentation, Vital Signs Vital Signs: Last Vital Signs Temp 99.3 F 11/12/18 06:11 Pulse 76 11/12/18 06:11 Resp 18 11/12/18 06:11 BP 146/77 11/12/18 06:11 Pulse Ox 96 11/12/18 06:11 GEORGE Report Viewed: Yes - Medical History PMH: Anemia, Arthritis, Back Problems, Diabetes, Diverticulitis, Fractures (righthip), HTN, Hypercholesterolemia, Hyperthyroidism, End Stage Renal Disease (s/p transplant), Chronic Kidney Disease Denies: HIV - Surgical History Surgical History: - Family History Family History: States: Unknown Family Hx - Social History Current smoker - smoking cessation education provided: No Alcohol: None Drugs: Denies - Home Medications Home Medications: Ambulatory Orders Medication Instructions Recorded Gabapentin [Neurontin] 300 mg PO HS 11/12/18 Home Med 250 mg PO BID 11/12/18 Metformin HCl [Glucophage] 500 mg PO BID 11/12/18 Prednisone [Eber] 5 mg PO DAILY 11/12/18 Tacrolimus [Prograf] 5 mg PO BID 11/12/18 amLODIPine [Norvasc] 5 mg PO DAILY 11/12/18 - Allergies Allergies/Adverse Reactions: Allergies Allergy/AdvReac Type Severity Reaction Status Date / Time cefazolin Allergy ITCHING Verified 07/23/18 15:39 iodine Allergy ITCHING Verified 07/23/18 15:39 latex Allergy ITCHING Verified 11/12/18 06:31 vancomycin Allergy ITCHING Verified 07/23/18 15:39 Review of Systems ROS Statement: Except As Marked, All Systems Reviewed And Found Negative Constitutional: Negative for: Fever Cardiovascular: Negative for: Chest Pain Respiratory: Negative for: Shortness of Breath Gastrointestinal: Positive for: Vomiting. Negative for: Abdominal Pain, Diarrhea Genitourinary Female: Positive for: Frequency Musculoskeletal: Positive for: Back Pain Neurological: Positive for: Dizziness Physical Exam - Reviewed Nursing Documentation Reviewed: Yes Vital Signs Reviewed: Yes - Physical Exam Appears: Positive for: Non-toxic, No Acute Distress Head Exam: Positive for: ATRAUMATIC, NORMAL INSPECTION, NORMOCEPHALIC Skin: Positive for: Normal Color, Warm, Dry Eye Exam: Positive for: Normal appearance, EOMI, PERRL ENT: Positive for: Normal ENT Inspection Neck: Positive for: Normal, Painless ROM, Supple Cardiovascular/Chest: Positive for: Regular Rate, Rhythm. Negative for: Murmur Respiratory: Positive for: Normal Breath Sounds. Negative for: Respiratory Distress Gastrointestinal/Abdominal: Positive for: Normal Exam, Soft. Negative for: Tenderness Back: Positive for: R CVA Tenderness. Negative for: L CVA Tenderness, Vertebral Tenderness Extremity: Positive for: Normal ROM. Negative for: Deformity, Swelling Neurological/Psych: Positive for: Awake, Alert, Normal Tone, Oriented. Negative for: Motor/Sensory Deficits - Laboratory Results Result Diagrams: 11/12/18 08:00 11/12/18 08:00 - ECG O2 Sat by Pulse Oximetry: 96 (RA) Pulse Ox Interpretation: Normal Medical Decision Making Medical Decision Making: Time: 7:53 Plan: --CT Abd/Pelvis --EKG --CMP --ED Urine Dipstick --CBC --Coags --Urinalysis --Glucose, Blood, POC --Zofran 4 mg IV Provider performed right jugular IV placement after peripheral method failed. Sterile technique utilized and placement was successful. Accession No. : [id number] Patient Name / ID : ANKUR JIMENEZ / [id number] Exam Date : 11/12/2018 09:25:53 ( Approved ) Study Comment : Sex / Age : F / 63Y Creator : Sarita Cortes Dictator : Sarita Cortes Cell Attendant Helper : Chisel Mortiser Operator : Sarita Cortes Approver2 : Report Date : 11/12/2018 10:11:48 My Comment : Date of service: 11/12/2018 PROCEDURE: CT Abdomen and Pelvis without intravenous contrast HISTORY: R flank pain COMPARISON: None. TECHNIQUE: Technique. Contrast dose: Radiation dose: Total exam DLP = <inf_radiation_dlp> mGy-cm. This CT exam was performed using one or more of the following dose reduction techniques: Automated exposure control, adjustment of the mA and/or kV according to patient size, and/or use of iterative reconstruction technique. FINDINGS: LOWER THORAX: Posterior dependent interval discoid atelectasis with or without trace scarring here. Coronary artery calcifications present each axilla atherosclerotic vascular calcifications noted. LIVER: Unremarkable. No gross lesion or ductal dilatation. GALLBLADDER AND BILE DUCTS: Tiny gallstones within the gallbladder. No dilated ducts appreciated. PANCREAS: Unremarkable. No gross lesion or ductal dilatation. SPLEEN: Unremarkable. ADRENALS: Unremarkable. No mass. KIDNEYS AND URETERS: In the [place] kidneys normally position, bilateral renal cortical thinning appears fairly symmetrical. Nephrosclerosis suspect. An apparent transplanted kidney in the right hemipelvis shows 8 to 10 mm hypodensities resembling right renal cysts anteriorly (series 2, image 57). No peripheral caliectasis seen here. There is minimal fullness to the right intrarenal pelvis/extrarenal pelvis/proximal right ureter. No obstructing right ureteral calculus or mass the ureter associated with the right hemipelvic transplanted kidney enters the anterior right bladder aspect this segment does not appear dilated. No suspicious appearing mass is noted. VASCULATURE: . No aortic aneurysm. No aneurysm seen. Extensive diffuse abdominal atherosclerotic vascular calcifications present. BOWEL: There is a very elongated tubular fracture left lateral to the cecum which is inferred as a tortuous collapsed terminal ileum it appears to track from series 2, image 58 cephalad back to the cecum on series 2, image 46. A separate appendix is not identified with certainty. Along the right anterior subcutaneous fat there is trace be increased density perhaps relating to a minimal panniculitis here. No maranda herniated bowel contents through the thin abdominal wall in this right anterolateral abdominal wall segment is appreciated. Findings are noted on axial series 2, image 46 and cephalad and distal to this. No obstruction. No gross mural thickening. Moderate stool retention. APPENDIX: Unremarkable. Normal appendix. PERITONEUM: Unremarkable. No free fluid. No free air. LYMPH NODES: Unremarkable. No enlarged lymph nodes. BLADDER: Unremarkable. REPRODUCTIVE: Extensive calcifications probably vascular types throughout the uterus in this postmenopausal female. BONES: No acute fracture. Diffuse thoracic spondylosis. OTHER FINDINGS: None. IMPRESSION: Right hemipelvic transplanted kidney with few, 2 to 3 mm benign-appearing hypodense lesions probable renal cysts. Although there is minimal/trace fullness of the right intrarenal and proximal right ureter-no peripheral caliectasis is seen to suggest a more significant appearing hydronephrosis. No obstructing right ureteral calculi seen. Distal right ureter along the anterior right bladder attachment site is normal in caliber. No clearly identified separate appendix. The markedly elongated tubular structure left lateral to the cecum is believed most compatible per its serial tracing with a collapsed terminal ileum. Clinical correlation and close follow- up here is advised. Also clinical correlation with any prior known appendectomy status is suggested. At this right cecal level within the deeper subcutaneous abdominal wall fat trace panniculitis is probable-chronicity unknown. No focal fluid collections here suggested. No bowel obstruction. Extensive severe atherosclerotic vascular disease. [place] kidneys with the appearance compatible with advanced nephrosclerosis. 14:[address] Peace, it. Scribe Attestation: Documented by Kelley Saldaña, acting as a scribe for Ellie Goddard MD. Provider Scribe Attestation: All medical record entries made by the Scribe were at my direction and personally dictated by me. I have reviewed the chart and agree that the record accurately reflects my personal performance of the history, physical exam, medical decision making, and the department course for this patient. I have also personally directed, reviewed, and agree with the discharge instructions and disposition. Disposition - Clinical Impression Clinical Impression: Complicated UTI (urinary tract infection), Renal transplant recipient - Patient ED Disposition Is Patient to be Admitted: Yes - Disposition Disposition Time: 14:44 Condition: STABLE Forms: [employer] (Turkish) - Pt Status Changed To: Hospital Disposition Of: Inpatient - Admit Certification Admit to Inpatient:: After my assessment, the patient will require hospitalization for at least two midnights. This is because of the severity of symptoms shown, intensity of services needed, and/or the medical risk in this patient being treated as an outpatient. - POA Present On Arrival: Poor Glycemic Control
[2018-11-12 08:15] LABS: BASO % 0.2 % (0.0-2.0); EOS # 0.1 K/uL (0.0-0.7); EOS % 0.4 % (0.0-4.0); HEMOGLOBIN 12.1 g/dL (12.0-16.0); LYMPH # 1.4 K/uL (1.0-4.3); LYMPH % 11.5 % (20.0-40.0); MEAN CELL VOLUME 92.1 fl (81.0-99.0); MEAN CORPUSCULAR HEMOGLOBIN 29.9 pg (27.0-31.0); MEAN CORPUSCULAR HGB CONC 32.5 g/dL (33.0-37.0); MEAN PLATELET VOLUME 8.1 fl (7.2-11.7); MONO % 7.8 % (0.0-10.0); NEUT # 9.9 K/uL (1.8-7.0); NEUT % 80.1 % (50.0-75.0); NRBC % 0.1 % (0.0-0.0); RBC 4.06 Mil/uL (3.80-5.20); RED CELL DISTRIBUTION WIDTH 15.2 % (11.5-14.5); WHITE BLOOD COUNT 12.3 K/uL (4.8-10.8)
[2018-11-12 08:16] LABS: INR 1.1; PROTHROMBIN TIME 12.2 Seconds (9.8-13.1)
[2018-11-12 08:18] LABS: PARTIAL THROMBOPLASTIN TIME 29.1 Seconds (25.6-37.1)
[2018-11-12 08:30] LABS: ALB/GLOB RATIO 1.2 (1.0-2.1); ALT/SGPT 19 U/L (9-52); AST/SGOT 19 U/L (14-36); BLOOD UREA NITROGEN 23 mg/dl (7-17); CALCIUM 11.2 mg/dL (8.4-10.2); GFR NON-AFRICAN AMERICAN > 60
--- NOTE | 2018-11-12 08:56 | CARD ---
APPROVED REPORT Date of service: 11/12/2018 EKG Measurement Heart [id number] <Conclusion> Sinus rhythm with premature atrial complexes Nonspecific T wave abnormality Abnormal ECG
--- NOTE | 2018-11-12 10:15 | CT ---
Date of service: 11/12/2018 PROCEDURE: CT Abdomen and Pelvis without intravenous contrast HISTORY: R flank pain COMPARISON: None. TECHNIQUE: Technique. Contrast dose: Radiation dose: Total exam DLP = <inf_radiation_dlp> mGy-cm. This CT exam was performed using one or more of the following dose reduction techniques: Automated exposure control, adjustment of the mA and/or kV according to patient size, and/or use of iterative reconstruction technique. FINDINGS: LOWER THORAX: Posterior dependent interval discoid atelectasis with or without trace scarring here. Coronary artery calcifications present each axilla atherosclerotic vascular calcifications noted. LIVER: Unremarkable. No gross lesion or ductal dilatation. GALLBLADDER AND BILE DUCTS: Tiny gallstones within the gallbladder. No dilated ducts appreciated. PANCREAS: Unremarkable. No gross lesion or ductal dilatation. SPLEEN: Unremarkable. ADRENALS: Unremarkable. No mass. KIDNEYS AND URETERS: In the [place] kidneys normally position, bilateral renal cortical thinning appears fairly symmetrical. Nephrosclerosis suspect. An apparent transplanted kidney in the right hemipelvis shows 8 to 10 mm hypodensities resembling right renal cysts anteriorly (series 2, image 57). No peripheral caliectasis seen here. There is minimal fullness to the right intrarenal pelvis/extrarenal pelvis/proximal right ureter. No obstructing right ureteral calculus or mass the ureter associated with the right hemipelvic transplanted kidney enters the anterior right bladder aspect this segment does not appear dilated. No suspicious appearing mass is noted. VASCULATURE: . No aortic aneurysm. No aneurysm seen. Extensive diffuse abdominal atherosclerotic vascular calcifications present. BOWEL: There is a very elongated tubular fracture left lateral to the cecum which is inferred as a tortuous collapsed terminal ileum it appears to track from series 2, image 58 cephalad back to the cecum on series 2, image 46. A separate appendix is not identified with certainty. Along the right anterior subcutaneous fat there is trace be increased density perhaps relating to a minimal panniculitis here. No maranda herniated bowel contents through the thin abdominal wall in this right anterolateral abdominal wall segment is appreciated. Findings are noted on axial series 2, image 46 and cephalad and distal to this. No obstruction. No gross mural thickening. Moderate stool retention. APPENDIX: Unremarkable. Normal appendix. PERITONEUM: Unremarkable. No free fluid. No free air. LYMPH NODES: Unremarkable. No enlarged lymph nodes. BLADDER: Unremarkable. REPRODUCTIVE: Extensive calcifications probably vascular types throughout the uterus in this postmenopausal female. BONES: No acute fracture. Diffuse thoracic spondylosis. OTHER FINDINGS: None. IMPRESSION: Right hemipelvic transplanted kidney with few, 2 to 3 mm benign-appearing hypodense lesions probable renal cysts. Although there is minimal/trace fullness of the right intrarenal and proximal right ureter-no peripheral caliectasis is seen to suggest a more significant appearing hydronephrosis. No obstructing right ureteral calculi seen. Distal right ureter along the anterior right bladder attachment site is normal in caliber. No clearly identified separate appendix. The markedly elongated tubular structure left lateral to the cecum is believed most compatible per its serial tracing with a collapsed terminal ileum. Clinical correlation and close follow-up here is advised. Also clinical correlation with any prior known appendectomy status is suggested. At this right cecal level within the deeper subcutaneous abdominal wall fat trace panniculitis is probable-chronicity unknown. No focal fluid collections here suggested. No bowel obstruction. Extensive severe atherosclerotic vascular disease. [place] kidneys with the appearance compatible with advanced nephrosclerosis.
[2018-11-12] MEDS ORDERED: Ciprofloxacin 400mg/200ml D5W 400 MG/200 ML BAG IVPB STA (14:39)
[2018-11-12 15:02] LABS: URINE BACTERIA MOD (<OCC); URINE BILIRUBIN NEGATIVE (NEGATIVE); URINE BLOOD MODERATE (NEGATIVE); URINE CLARITY TURBID (Clear); URINE COLOR YELLOW (YELLOW); URINE GLUCOSE (UA) NEG (NEGATIVE); URINE LEUKOCYTE ESTERASE LARGE Leu/uL (Negative); URINE PROTEIN 100 mg/dL (NEGATIVE); URINE UROBILINOGEN 0.2-1.0 mg/dL (0.2-1.0); WBC CLUMPS MANY /hpf
[2018-11-12] MEDS ORDERED: Ciprofloxacin 400mg/200ml D5W 400 MG/200 ML BAG IVPB ONE (15:09)
--- NOTE | 2018-11-12 15:58 | CP.PCM.HP ---
<BonnymaevesimaJuliane - Last Filed: 11/12/18 17:06> History of Present Illness - History of Present Illness History of Present Illness: Pt is a 63 yo F with a pmhx of R renal transplant (2005), DM, recurrent UTI presented to the ED due to dysuria, polyuria, nausea and vomiting 6x today, b/l lower back pain, reports decreased PO intake today and yesterday. Reports she took her medications today. Denies fever, chills, abdominal pain, diarrhea, or constipation. PMD: Dr. Jian Painter Code status: Full code PMHx: Renal transplant (2005), DM, Arthritis, Diverticulosis, HTN, HLD, Reflux, Anemia, back compression fracture Allergies: cefazolin, iodine, vancomycin, latex Medications: Metformin 500mg BID, Norvasc 5mg QD, Gabapentin 300mg HS, Prednisone 5mg Daily, Tacrolimus 5mg BID, Mycophenolate 250mg BID Family hx: Father: DM, CKD Mom: HTN, stroke, Asthma Surg hx: 2005 Right renal transplant, sigmoid colon resection 2017 ED course: U/A-Nitrates +, large LE, WBC-2199, Mod-bacteria. CT Abd/Pelvis-transplanted kidney in the right hemipelvis shows 8 to 10 mm hypodensities resembling right renal cysts anteriorly, No obstructing right ureteral calculus or mass or dilation. EKG sinus rythm with marked sinus arrhythmia non spec t wave abnormalities CMP-POC 236, CBC-wbc 12.3, Coags-wnl, Zofran 4 mg IV, Ciprofloxacin 400mg Stat, NS @90ml/hr Present on Admission - Present on Admission Any Indicators Present on Admission: No History of DVT/PE: No History of Uncontrolled Diabetes: No Urinary Catheter: No Decubitus Ulcer Present: No Review of Systems - Gastrointestinal Gastrointestinal: Nausea, Vomiting - Genitourinary Genitourinary: Dysuria, Freq UTI. absent: Hematuria - Musculoskeletal Musculoskeletal: Back Pain (lower) - Endocrine Endocrine: Polyuria Past Patient History - Infectious Disease Hx of Infectious Diseases: None - Past Medical History & Family History Past Medical History?: Yes - Past Social History Smoking Status: Never Smoked Alcohol: None Drugs: Denies - CARDIAC Hx Hypercholesterolemia: Yes Hx Hypertension: Yes - PULMONARY Hx Respiratory Disorders: No - NEUROLOGICAL Hx Neurological Disorder: No - HEENT Hx HEENT Problems: Yes Hx Glaucoma: Yes - RENAL Hx Chronic Kidney Disease: Yes - ENDOCRINE/METABOLIC Hx Hyperthyroidism: Yes - HEMATOLOGICAL/ONCOLOGICAL Hx Anemia: Yes Hx Human Immunodeficiency Virus (HIV): No - INTEGUMENTARY Hx Dermatological Problems: Yes Other/Comment: Hx pressure ulcer - MUSCULOSKELETAL/RHEUMATOLOGICAL Hx Arthritis: Yes Hx Fractures: Yes (righthip) - GASTROINTESTINAL Hx Diverticulitis: Yes - GENITOURINARY/GYNECOLOGICAL Hx Genitourinary Disorders: Yes Hx Urinary Tract Infection: Yes - PSYCHIATRIC Hx Psychophysiologic Disorder: No Hx Substance Use: No - SURGICAL HISTORY Hx Surgeries: Yes Hx Arteriovenous Shunt: Yes (bilateral arms) Hx Section: Yes (x2) Hx Kidney Transplant: Yes (Right Kidney 2005) Hx Vascular Surgery: Yes Hx Vascular Access Device: Yes Other/Comment: DIVERTICULITIS SURGERY 06/2017 - ANESTHESIA Hx Anesthesia: Yes Hx Anesthesia Reactions: No Hx Malignant Hyperthermia: No Meds Allergies/Adverse Reactions: Allergies Allergy/AdvReac Type Severity Reaction Status Date / Time cefazolin Allergy ITCHING Verified 07/23/18 15:39 iodine Allergy ITCHING Verified 07/23/18 15:39 latex Allergy ITCHING Verified 11/12/18 06:31 vancomycin Allergy ITCHING Verified 07/23/18 15:39 Physical Exam - Constitutional Appears: Non-toxic, No Acute Distress - Head Exam Head Exam: ATRAUMATIC, NORMAL INSPECTION, NORMOCEPHALIC - Eye Exam Eye Exam: EOMI - ENT Exam ENT Exam: Mucous Membranes Moist - Respiratory Exam Respiratory Exam: Clear to Auscultation Bilateral. absent: Rales, Rhonchi, Wheezes - Cardiovascular Exam Cardiovascular Exam: RRR, +S1, +S2 - GI/Abdominal Exam GI & Abdominal Exam: Normal Bowel Sounds, Soft. absent: Rebound, Tenderness - Extremities Exam Extremities exam: Negative for: pedal edema - Back Exam Back exam: absent: CVA tenderness (L), CVA tenderness (R) Additional comments: B/L Lower back tenderness - Neurological Exam Neurological exam: Alert, Oriented x3 Results - Vital Signs Recent Vital Signs: Last Vital Signs Temp 99.4 F 11/12/18 12:50 Pulse 77 11/12/18 12:50 Resp 19 11/12/18 12:50 BP 122/74 11/12/18 12:50 Pulse Ox 96 11/12/18 14:44 - Labs Result Diagrams: 11/12/18 08:00 11/12/18 08:00 Labs: Laboratory Results - last 24 hr 11/12/18 11/12/18 11/12/18 06:19 08:00 08:00 WBC 12.3 H D RBC 4.06 Hgb 12.1 Hct 37.3 MCV 92.1 MCH 29.9 MCHC 32.5 L RDW 15.2 H Plt Count 181 MPV 8.1 Neut % (Auto) 80.1 H Lymph % (Auto) 11.5 L [place] % (Auto) 7.8 Eos % (Auto) 0.4 Baso % (Auto) 0.2 Neut # (Auto) 9.9 H Lymph # (Auto) 1.4 [place] # (Auto) 1.0 H Eos # (Auto) 0.1 Baso # (Auto) 0.0 PT INR APTT Sodium 139 Potassium 3.8 Chloride 108 H Carbon Dioxide 21 L Anion Gap 14 BUN 23 H Creatinine 0.7 Est GFR ( Amer) > 60 Est GFR (Non-Af Amer) > 60 POC Glucose (mg/dL) 236 H Random Glucose 214 H Calcium 11.2 H Total Bilirubin 0.5 AST 19 ALT 19 Alkaline Phosphatase 82 Total Protein 7.4 Albumin 4.0 Globulin 3.4 Albumin/Globulin Ratio 1.2 Urine Color Urine Clarity Urine pH Ur Specific [place] Urine Protein Urine Glucose (UA) Urine Ketones Urine Blood Urine Nitrate Urine Bilirubin Urine Urobilinogen Ur Leukocyte Esterase Urine RBC (Auto) Urine WBC Clumps (Auto) Urine Microscopic WBC Urine Bacteria 11/12/18 11/12/18 08:00 14:30 WBC RBC Hgb Hct MCV MCH MCHC RDW Plt Count MPV Neut % (Auto) Lymph % (Auto) [place] % (Auto) Eos % (Auto) Baso % (Auto) Neut # (Auto) Lymph # (Auto) [place] # (Auto) Eos # (Auto) Baso # (Auto) PT 12.2 INR 1.1 APTT 29.1 Sodium Potassium Chloride Carbon Dioxide Anion Gap BUN Creatinine Est GFR ( Amer) Est GFR (Non-Af Amer) POC Glucose (mg/dL) Random Glucose Calcium Total Bilirubin AST ALT Alkaline Phosphatase Total Protein Albumin Globulin Albumin/Globulin Ratio Urine Color Yellow Urine Clarity Turbid Urine pH 6.0 Ur Specific [place] 1.010 Urine Protein 100 Urine Glucose (UA) Neg Urine Ketones Negative Urine Blood Moderate Urine Nitrate Positive H Urine Bilirubin Negative Urine Urobilinogen 0.2-1.0 Ur Leukocyte Esterase Large Urine RBC (Auto) 48 H Urine WBC Clumps (Auto) Many H Urine Microscopic WBC 2199 H Urine Bacteria Mod H Assessment & Plan - Assessment and Plan (Free Text) Assessment: Pt is a 63 yo F with a pmhx of R renal transplant (2005), DM, recurrent UTI presented to the ED due to dysuria, polyuria, nausea and vomiting admitted for complicated UTI. Complicated UTI s/p renal transplant 2005 U/A-Nitrates +, large LE, WBC-2199, Mod-bacteria. WBC-12.3 CT Abd/Pelvis-transplanted kidney in the right hemipelvis shows 8 to 10 mm hypodensities resembling right renal cysts anteriorly, No obstructing right ureteral calculus or mass or dilation. Urine cx sent, procalcitonin s/p Ciprofloxacin 400mg x1 dose Previous urine culture-done 11/10/18 resistant to Cipro Infectious Disease consulted- Dr. Rodriguez- [facility] appreciated Nephrology consulted- Dr. Glez- f/u reccs Started Aztreonam 1GM/100ML NS Q12H (Day #1) IVF's @90ml/hr F/u CBC, BMP, procalcitonin, Urine Cx in AM Renal Transplant 2005 CT Abd/Pelvis-transplanted kidney in the right hemipelvis shows 8 to 10 mm hypodensities resembling right renal cysts anteriorly, No obstructing right ureteral calculus or mass or dilation. c/w transplant medications Hypercalcemia Ca-11.2 chronic, likely due to hx kidney dz will call pharmacy follow nephro recommendations F/u BMP in AM DM chronic, POC 236 Insulin SS Accuchecks hypoglycemic protocol HTN chronic, controlled c/w Norvasc Diet NPO DVT ppx SCD's for now Lovenox 40mg in AM <Charlotte Peace - Last Filed: 11/14/18 21:46> Results - Vital Signs Recent Vital Signs: Last Vital Signs Temp 98 F 11/14/18 16:30 Pulse 90 11/14/18 16:30 Resp 20 11/14/18 16:30 BP 157/75 H 11/14/18 16:30 Pulse Ox 97 11/14/18 16:30 - Labs Result Diagrams: 11/14/18 04:20 11/14/18 04:20 Labs: Laboratory Results - last 24 hr 11/13/18 11/13/18 11/13/18 21:30 21:30 21:33 WBC RBC Hgb Hct MCV MCH MCHC RDW Plt Count MPV Neut % (Auto) Lymph % (Auto) [place] % (Auto) Eos % (Auto) Baso % (Auto) Neut # (Auto) Lymph # (Auto) [place] # (Auto) Eos # (Auto) Baso # (Auto) Sodium Potassium Chloride Carbon Dioxide Anion Gap BUN Creatinine Est GFR ( Amer) Est GFR (Non-Af Amer) POC Glucose (mg/dL) 167 H Random Glucose Calcium 25-OH Vitamin D Total 16.9 L PTH Intact Whole [place] 81 H 11/14/18 11/14/18 11/14/18 04:20 04:20 05:14 WBC 7.2 RBC 3.64 L Hgb 11.1 L Hct 33.9 L MCV 93.2 MCH 30.5 MCHC 32.7 L RDW 15.1 H Plt Count 144 MPV 8.6 Neut % (Auto) 63.7 Lymph % (Auto) 24.5 [place] % (Auto) 10.7 H Eos % (Auto) 0.8 Baso % (Auto) 0.3 Neut # (Auto) 4.6 Lymph # (Auto) 1.8 [place] # (Auto) 0.8 Eos # (Auto) 0.1 Baso # (Auto) 0.0 Sodium 140 Potassium 3.9 Chloride 109 H Carbon Dioxide 25 Anion Gap 10 BUN 15 Creatinine 0.7 Est GFR ( Amer) > 60 Est GFR (Non-Af Amer) > 60 POC Glucose (mg/dL) 91 Random Glucose 84 Calcium 10.2 25-OH Vitamin D Total PTH Intact Whole [place] 11/14/18 11/14/18 11:34 15:56 WBC RBC Hgb Hct MCV MCH MCHC RDW Plt Count MPV Neut % (Auto) Lymph % (Auto) [place] % (Auto) Eos % (Auto) Baso % (Auto) Neut # (Auto) Lymph # (Auto) [place] # (Auto) Eos # (Auto) Baso # (Auto) Sodium Potassium Chloride Carbon Dioxide Anion Gap BUN Creatinine Est GFR ( Amer) Est GFR (Non-Af Amer) POC Glucose (mg/dL) 126 H 240 H Random Glucose Calcium 25-OH Vitamin D Total PTH Intact Whole [place] Attending/Attestation - Attestation I have personally seen and examined this patient.: Yes I have fully participated in the care of the patient.: Yes I have reviewed all pertinent clinical information: Yes Notes (Text): agree with findings and plan as above.
[2018-11-12] MEDS ORDERED: Aztreonam 1 GM in Sodium Chloride 0.9% 100 ML IVPB ONE (15:59)
[2018-11-12] MEDS ORDERED: Dextrose 50% SYRINGE Inj (50 ml) IV PRN (16:10)
[2018-11-12] MEDS ORDERED: Glucagon Recombinant 1 mg Inj IM PRN (16:10)
[2018-11-12] MEDS ORDERED: Insulin Regular 100 units/ml ONE (17:19)
[2018-11-12] MEDS: Insulin Regular 100 units/ml SC SCH ×2 (17:27→22:36)
--- NOTE | 2018-11-12 19:27 | CP.PCM.PN ---
Subjective - Date & Time of Evaluation Date of Evaluation: 11/12/18 Time of Evaluation: 19:25 - Subjective Subjective: I D NOTE CADSE DISCUSSED c RESIDENTS PAST HISTORY SHOWS E.COLI PATIENT HAS MULTIPLE ALLERGIES WILL AWAIT CULTURES ,INITIATE TREAMENT c AZACTAM Objective - Vital Signs/Intake and Output Vital Signs (last 24 hours): Temp Pulse Resp BP Pulse Ox 100 F H 76 17 137/71 97 11/12/18 17:08 11/12/18 17:08 11/12/18 17:08 11/12/18 17:08 11/12/18 17:08 - Medications Medications: Current Medications Amlodipine Besylate (Norvasc) 5 mg PO DAILY [facility] Dextrose (Dextrose 50% Inj) 0 ml IV STAT PRN; Protocol PRN Reason: Hypoglycemia Protocol Dextrose (Glutose 15) 0 gm PO ONCE PRN; Protocol PRN Reason: Hypoglycemia Protocol Enoxaparin Sodium (Lovenox) 40 mg SC DAILY [facility]; Protocol Gabapentin (Neurontin) 300 mg PO HS [facility] Glucagon (Glucagen Diagnostic Kit) 0 mg IM STAT PRN; Protocol PRN Reason: Hypoglycemia Protocol Home Med (Home Med) unit PO BID [facility] Home Med (Prednisone [Eber]) 5 mg PO DAILY [facility] Home Med (Tacrolimus [Prograf]) 5 mg PO BID [facility] Insulin Human Regular (Humulin R) 0 units SC ACCU-CHECK [facility]; Protocol Last Admin: 11/12/18 17:27 Dose: 2 u Ondansetron HCl (Zofran Inj) 4 mg IVP Q6 PRN PRN Reason: Nausea/Vomiting - Labs Labs: 11/12/18 08:00 11/12/18 08:00 PT 12.2 Seconds (9.8-13.1) 11/12/18 08:00 INR 1.1 11/12/18 08:00 APTT 29.1 Seconds (25.6-37.1) 11/12/18 08:00
[2018-11-12] MEDS ORDERED: Aztreonam 1 GM in Sodium Chloride 0.9% 100 ML IVPB SCH (21:00)
[2018-11-13] MEDS: Aztreonam 1 GM in Sodium Chloride 0.9% 100 ML IVPB SCH ×2 (04:21→16:59)
[2018-11-13 07:00] LABS: BASO % 0.2 % (0.0-2.0); EOS % 0.3 % (0.0-4.0); HEMOGLOBIN 11.8 g/dL (12.0-16.0); LYMPH % 8.7 % (20.0-40.0); MEAN CELL VOLUME 92.1 fl (81.0-99.0); MEAN CORPUSCULAR HEMOGLOBIN 30.3 pg (27.0-31.0); MEAN CORPUSCULAR HGB CONC 32.9 g/dL (33.0-37.0); MEAN PLATELET VOLUME 8.3 fl (7.2-11.7); MONO % 8.9 % (0.0-10.0); NEUT # 8.9 K/uL (1.8-7.0); NEUT % 81.9 % (50.0-75.0); PLATELET COUNT 154 K/uL (130-400); RED CELL DISTRIBUTION WIDTH 14.6 % (11.5-14.5); WHITE BLOOD COUNT 10.9 K/uL (4.8-10.8)
[2018-11-13 07:17] LABS: BLOOD UREA NITROGEN 17 mg/dl (7-17); CALCIUM 10.6 mg/dL (8.4-10.2); GFR NON-AFRICAN AMERICAN > 60
--- NOTE | 2018-11-13 08:12 | CP.PCM.PN ---
<Juliane Gill - Last Filed: 11/13/18 11:51> Subjective - Date & Time of Evaluation Date of Evaluation: 11/13/18 Time of Evaluation: 11:51 - Subjective Subjective: Pt seen and examined at bedside. Pt still feels nausea and yellow vomitus 2x. Reports dysuria and b/l lower back pain. Denies polyruia, abdominal pain, hematuria, fever, chills, CP, SOB, diarrhea, or constipation. Pt remains NPO and has a decreased appetite. Objective - Vital Signs/Intake and Output Vital Signs (last 24 hours): Temp Pulse Resp BP Pulse Ox 98 F 77 18 142/64 96 11/13/18 00:21 11/13/18 00:21 11/13/18 00:21 11/13/18 00:21 11/13/18 00:21 - Medications Medications: Current Medications Amlodipine Besylate (Norvasc) 5 mg PO DAILY [facility] Dextrose (Dextrose 50% Inj) 0 ml IV STAT PRN; Protocol PRN Reason: Hypoglycemia Protocol Dextrose (Glutose 15) 0 gm PO ONCE PRN; Protocol PRN Reason: Hypoglycemia Protocol Enoxaparin Sodium (Lovenox) 40 mg SC DAILY [facility]; Protocol Gabapentin (Neurontin) 300 mg PO [facility] Last Admin: 11/12/18 22:34 Dose: Not Given Glucagon (Glucagen Diagnostic Kit) 0 mg IM STAT PRN; Protocol PRN Reason: Hypoglycemia Protocol Home Med (Home Med) unit PO BID [facility] Home Med (Prednisone [Eber]) 5 mg PO DAILY [facility] Home Med (Tacrolimus [Prograf]) 5 mg PO BID [facility] Aztreonam 1 gm/ Sodium (Chloride) 100 mls @ 100 mls/hr IVPB Q12@0500,1700 [facility]; Protocol Last Admin: 11/13/18 04:21 Dose: 100 mls/hr Insulin Human Regular (Humulin R) 0 units SC ACCU-CHECK [facility]; Protocol Last Admin: 11/12/18 22:36 Dose: Not Given Ondansetron HCl (Zofran Inj) 4 mg IVP Q6 PRN PRN Reason: Nausea/Vomiting - Labs Labs: 11/13/18 06:30 11/13/18 06:30 PT 12.2 Seconds (9.8-13.1) 11/12/18 08:00 INR 1.1 11/12/18 08:00 APTT 29.1 Seconds (25.6-37.1) 11/12/18 08:00 - Constitutional Appears: Non-toxic, No Acute Distress - Head Exam Head Exam: NORMAL INSPECTION - Eye Exam Eye Exam: EOMI - ENT Exam ENT Exam: Mucous Membranes Moist - Respiratory Exam Respiratory Exam: Clear to Ausculation Bilateral. absent: Rales, Rhonchi, Wheezes - Cardiovascular Exam Cardiovascular Exam: RRR, +S1, +S2 - GI/Abdominal Exam GI & Abdominal Exam: Soft, Normal Bowel Sounds. absent: Guarding, Rigid, Tenderness, Rebound - Extremities Exam Extremities Exam: absent: Pedal Edema - Back Exam Additional comments: B/L Lower back tenderness - Neurological Exam Neurological Exam: Alert, Awake, Oriented x3 Assessment and Plan - Assessment and Plan (Free Text) Assessment: Pt is a 63 yo F with a pmhx of R renal transplant (2005), DM, recurrent UTI presented to the ED due to dysuria, polyuria, nausea and vomiting admitted for complicated UTI. Complicated UTI s/p renal transplant 2005 U/A-Nitrates +, large LE, WBC-2199, Mod-bacteria. WBC-12.3 CT Abd/Pelvis-transplanted kidney in the right hemipelvis shows 8 to 10 mm hypodensities resembling right renal cysts anteriorly, No obstructing right ureteral calculus or mass or dilation. Urine cx sent, procalcitonin s/p Ciprofloxacin 400mg x1 dose Previous urine culture-done 11/10/18 resistant to Cipro Infectious Disease consulted- Dr. Nayana ma appreciated Nephrology consulted- Dr. Greene appreciated c/w Aztreonam 1GM/100ML NS Q12H (Day #2) IVF's @120ml/hr F/u CBC, BMP, procalcitonin, Urine Cx in AM Renal Transplant 2005 CT Abd/Pelvis-transplanted kidney in the right hemipelvis shows 8 to 10 mm hypodensities resembling right renal cysts anteriorly, No obstructing right ureteral calculus or mass or dilation. c/w transplant medications Hypercalcemia Ca-10.6, improving chronic, likely due to hx kidney dz follow nephro recommendations F/u BMP in AM DM chronic, POC 224 Insulin SS Accuchecks hypoglycemic protocol Levemir 6units HS HTN chronic, controlled c/w Norvasc Diet started liquid diet DVT ppx Lovenox 40mg <Charlotte Peace - Last Filed: 11/14/18 21:43> Objective - Vital Signs/Intake and Output Vital Signs (last 24 hours): Temp Pulse Resp BP Pulse Ox 98 F 90 20 157/75 H 97 11/14/18 16:30 11/14/18 16:30 11/14/18 16:30 11/14/18 16:30 11/14/18 16:30 - Labs Labs: 11/14/18 04:20 11/14/18 04:20 PT 12.2 Seconds (9.8-13.1) 11/12/18 08:00 INR 1.1 11/12/18 08:00 APTT 29.1 Seconds (25.6-37.1) 11/12/18 08:00 Attending/Attestation - Attestation I have personally seen and examined this patient.: Yes I have fully participated in the care of the patient.: Yes I have reviewed all pertinent clinical information, including history, physical exam and plan: Yes Notes (Text): agree with findings and plan as above.
[2018-11-13] MEDS: Lactated Ringer's 1,000 ML IV SCH ×2 (10:00→21:46)
[2018-11-13] MEDS: Insulin Regular 100 units/ml SC SCH ×4 (11:46→23:06)
[2018-11-13 12:23] LABS: BANDS 1 % (0-2); LYMPHOCYTE 9 % (20-50); MONOCYTE 6 % (0-10); NEUTROPHIL 84 % (42-75); PLATELET ESTIMATE NORMAL (NORMAL); TOTAL CELLS COUNTED 100
[2018-11-13 12:24] LABS: GIANT PLATELETS PRESENT; HYPOCHROMIC SLIGHT
[2018-11-13] MEDS: Enoxaparin 40 mg Syringe SC SCH (12:29)
--- NOTE | 2018-11-13 18:47 | CP.PCM.CON ---
History of Present Illness - History of Present Illness History of Present Illness: REASONS FOR CONSULT : S/P RENAL TRANSPLANT 2006 COMPLICATED UTI PT WELL KNOWN TO ME FOR THE LAST 20 YEARS PRESENTED WITH PUYLONEPHRITIS Pt is a 63 yo F with a pmhx of R renal transplant (2005), DM, recurrent UTI presented to the ED due to dysuria, polyuria, nausea and vomiting 6x today, b/l lower back pain, reports decreased PO intake today and yesterday. Reports she took her medications today. Denies fever, chills, abdominal pain, diarrhea, or constipation. PMD: Dr. Jian Painter Code status: Full code PMHx: Renal transplant (2005), DM, Arthritis, Diverticulosis, HTN, HLD, Reflux, Anemia, back compression fracture Allergies: cefazolin, iodine, vancomycin, latex Medications: Metformin 500mg BID, Norvasc 5mg QD, Gabapentin 300mg HS, Prednisone 5mg Daily, Tacrolimus 5mg BID, Mycophenolate 250mg BID Family hx: Father: DM, CKD Mom: HTN, stroke, Asthma Surg hx: 2005 Right renal transplant, sigmoid colon resection 2017 ED course: U/A-Nitrates +, large LE, WBC-2199, Mod-bacteria. CT Abd/Pelvis-transplanted kidney in the right hemipelvis shows 8 to 10 mm hypodensities resembling right renal cysts anteriorly, No obstructing right ureteral calculus or mass or dilation. EKG sinus rythm with marked sinus arrhythmia non spec t wave abnormalities CMP-POC 236, CBC-wbc 12.3, Coags-wnl, Zofran 4 mg IV, Ciprofloxacin 400mg Stat, NS @90ml/hr Present on Admission Past Patient History - Infectious Disease Hx of Infectious Diseases: None - Past Medical History & Family History Past Medical History?: Yes - Past Social History Smoking Status: Never Smoked - CARDIAC Hx Hypercholesterolemia: Yes Hx Hypertension: Yes - PULMONARY Hx Respiratory Disorders: No - NEUROLOGICAL Hx Neurological Disorder: No - HEENT Hx HEENT Problems: Yes Hx Glaucoma: Yes - RENAL Hx Chronic Kidney Disease: Yes Hx Dialysis: Yes Type of Dialysis Access: celso arm AV shunt Hx Renal Failure: Yes - ENDOCRINE/METABOLIC Hx Diabetes Mellitus Type 2: Yes - HEMATOLOGICAL/ONCOLOGICAL Hx Anemia: Yes Hx Human Immunodeficiency Virus (HIV): No - INTEGUMENTARY Hx Dermatological Problems: Yes Other/Comment: Hx pressure ulcer - MUSCULOSKELETAL/RHEUMATOLOGICAL Hx Arthritis: Yes Hx Back Pain: No Hx Falls: No Hx Fractures: Yes (righthip) Other/Comment: back compression fracture - GASTROINTESTINAL Hx Bowel Surgery: Yes (sigmoid colon surgery) Hx Diverticulitis: Yes Hx Gastroesophageal Reflux: Yes - GENITOURINARY/GYNECOLOGICAL Hx Genitourinary Disorders: Yes Hx Urinary Tract Infection: Yes - PSYCHIATRIC Hx Psychophysiologic Disorder: No Hx Substance Use: No - SURGICAL HISTORY Hx Surgeries: Yes Hx Arteriovenous Shunt: Yes (bilateral arms) Hx Section: Yes (x2) Hx Kidney Transplant: Yes (Right Kidney 2006) Hx Vascular Surgery: Yes Hx Vascular Access Device: Yes Other/Comment: DIVERTICULITIS SURGERY 06/2017 - ANESTHESIA Hx Anesthesia: Yes Hx Anesthesia Reactions: No Hx Malignant Hyperthermia: No Meds Allergies/Adverse Reactions: Allergies Allergy/AdvReac Type Severity Reaction Status Date / Time cefazolin Allergy ITCHING Verified 07/23/18 15:39 iodine Allergy ITCHING Verified 07/23/18 15:39 latex Allergy ITCHING Verified 11/12/18 06:31 vancomycin Allergy ITCHING Verified 07/23/18 15:39 - Medications Medications: Current Medications Amlodipine Besylate (Norvasc) 5 mg PO DAILY [facility] Last Admin: 11/13/18 12:49 Dose: 5 mg Dextrose (Dextrose 50% Inj) 0 ml IV STAT PRN; Protocol PRN Reason: Hypoglycemia Protocol Dextrose (Glutose 15) 0 gm PO ONCE PRN; Protocol PRN Reason: Hypoglycemia Protocol Enoxaparin Sodium (Lovenox) 40 mg SC DAILY [facility]; Protocol Last Admin: 11/13/18 12:29 Dose: 40 mg Gabapentin (Neurontin) 300 mg PO [facility] Last Admin: 11/12/18 22:34 Dose: Not Given Glucagon (Glucagen Diagnostic Kit) 0 mg IM STAT PRN; Protocol PRN Reason: Hypoglycemia Protocol Aztreonam 1 gm/ Sodium (Chloride) 100 mls @ 100 mls/hr IVPB Q12@0500,1700 [facility]; Protocol Last Admin: 11/13/18 16:59 Dose: 100 mls/hr Lactated Ringer's (Lactated Ringer's) 1,000 mls @ 120 mls/hr IV .Q8H20M [facility] Last Admin: 11/13/18 10:00 Dose: 120 mls/hr Insulin Detemir (Levemir) 6 units SC [facility] Insulin Human Regular (Humulin R) 0 units SC ACCU-CHECK [facility]; Protocol Last Admin: 11/13/18 17:07 Dose: 2 u Mycophenolate Mofetil (Cellcept Cap) 250 mg PO BID [facility] Last Admin: 11/13/18 12:48 Dose: 250 mg Ondansetron HCl (Zofran Inj) 4 mg IVP Q6 PRN PRN Reason: Nausea/Vomiting Prednisone (Prednisone Tab) 5 mg PO DAILY [facility] Last Admin: 11/13/18 12:50 Dose: 5 mg Tacrolimus (Prograf Cap) 5 mg PO BID [facility] Last Admin: 11/13/18 12:50 Dose: 5 mg Results - Vital Signs Recent Vital Signs: Last Vital Signs Temp 98.6 F 11/13/18 16:24 Pulse 74 11/13/18 16:24 Resp 20 11/13/18 16:24 BP 103/50 L 11/13/18 16:24 Pulse Ox 95 11/13/18 16:24 - Labs Result Diagrams: 11/13/18 06:30 11/13/18 06:30 Labs: Laboratory Results - last 24 hr 11/12/18 11/12/18 11/13/18 19:44 21:31 05:13 WBC RBC Hgb Hct MCV MCH MCHC RDW Plt Count MPV Neut % (Auto) Lymph % (Auto) [place] % (Auto) Eos % (Auto) Baso % (Auto) Neut # (Auto) Lymph # (Auto) [place] # (Auto) Eos # (Auto) Baso # (Auto) Neutrophils % (Manual) Band Neutrophils % Lymphocytes % (Manual) Monocytes % (Manual) Platelet Estimate Giant Platelets Hypochromasia (manual) Sodium Potassium Chloride Carbon Dioxide Anion Gap BUN Creatinine Est GFR ( Amer) Est GFR (Non-Af Amer) POC Glucose (mg/dL) 219 H 207 H Random Glucose Calcium Procalcitonin < 0.05 L 11/13/18 11/13/18 11/13/18 06:30 06:30 11:07 WBC 10.9 H RBC 3.90 Hgb 11.8 L Hct 35.9 MCV 92.1 MCH 30.3 MCHC 32.9 L RDW 14.6 H Plt Count 154 MPV 8.3 Neut % (Auto) 81.9 H Lymph % (Auto) 8.7 L [place] % (Auto) 8.9 Eos % (Auto) 0.3 Baso % (Auto) 0.2 Neut # (Auto) 8.9 H Lymph # (Auto) 1.0 [place] # (Auto) 1.0 H Eos # (Auto) 0.0 Baso # (Auto) 0.0 Neutrophils % (Manual) 84 H Band Neutrophils % 1 Lymphocytes % (Manual) 9 L Monocytes % (Manual) 6 Platelet Estimate Normal Giant Platelets Present Hypochromasia (manual) Slight Sodium 139 Potassium 4.1 Chloride 109 H Carbon Dioxide 21 L Anion Gap 13 BUN 17 Creatinine 0.8 Est GFR ( Amer) > 60 Est GFR (Non-Af Amer) > 60 POC Glucose (mg/dL) 224 H Random Glucose 206 H Calcium 10.6 H Procalcitonin 11/13/18 15:29 WBC RBC Hgb Hct MCV MCH MCHC RDW Plt Count MPV Neut % (Auto) Lymph % (Auto) [place] % (Auto) Eos % (Auto) Baso % (Auto) Neut # (Auto) Lymph # (Auto) [place] # (Auto) Eos # (Auto) Baso # (Auto) Neutrophils % (Manual) Band Neutrophils % Lymphocytes % (Manual) Monocytes % (Manual) Platelet Estimate Giant Platelets Hypochromasia (manual) Sodium Potassium Chloride Carbon Dioxide Anion Gap BUN Creatinine Est GFR ( Amer) Est GFR (Non-Af Amer) POC Glucose (mg/dL) 224 H Random Glucose Calcium Procalcitonin Assessment & Plan - Assessment and Plan (Free Text) Assessment: ESRD .. S/P RENAL TRNSPLANT . S/P RENAL TRANSPLANT 2005 .. RENAL FUNCTION GOOD UTI .. ON IVAB MMP P : C/O IVAB C/O IVF C/O PO ANTI REJECTION MEDS DIET 2 GM NA .. 1800 YOSELYN ADA WILL KEEP CLOSE EYE ON PT - Date & Time Date: 11/13/18 Time: 15:00
--- NOTE | 2018-11-13 20:08 | CP.PCM.PN ---
Subjective - Date & Time of Evaluation Date of Evaluation: 11/13/18 Time of Evaluation: 20:05 - Subjective Subjective: I D NOTE AWAITING URINE CULTURE RESULTS WBC:10.9,GFR:>60.CREATININE:0.8 WOULD CONTINUE AZACTAM Objective - Vital Signs/Intake and Output Vital Signs (last 24 hours): Temp Pulse Resp BP Pulse Ox 98.6 F 74 20 103/50 L 95 11/13/18 16:24 11/13/18 16:24 11/13/18 16:24 11/13/18 16:24 11/13/18 16:24 - Medications Medications: Current Medications Amlodipine Besylate (Norvasc) 5 mg PO DAILY [facility] Last Admin: 11/13/18 12:49 Dose: 5 mg Dextrose (Dextrose 50% Inj) 0 ml IV STAT PRN; Protocol PRN Reason: Hypoglycemia Protocol Dextrose (Glutose 15) 0 gm PO ONCE PRN; Protocol PRN Reason: Hypoglycemia Protocol Enoxaparin Sodium (Lovenox) 40 mg SC DAILY [facility]; Protocol Last Admin: 11/13/18 12:29 Dose: 40 mg Gabapentin (Neurontin) 300 mg PO HS [facility] Last Admin: 11/12/18 22:34 Dose: Not Given Glucagon (Glucagen Diagnostic Kit) 0 mg IM STAT PRN; Protocol PRN Reason: Hypoglycemia Protocol Aztreonam 1 gm/ Sodium (Chloride) 100 mls @ 100 mls/hr IVPB Q12@0500,1700 [facility]; Protocol Last Admin: 11/13/18 16:59 Dose: 100 mls/hr Lactated Ringer's (Lactated Ringer's) 1,000 mls @ 120 mls/hr IV .Q8H20M [facility] Last Admin: 11/13/18 10:00 Dose: 120 mls/hr Insulin Detemir (Levemir) 6 units SC [facility] Insulin Human Regular (Humulin R) 0 units SC ACCU-CHECK [facility]; Protocol Last Admin: 11/13/18 17:07 Dose: 2 u Mycophenolate Mofetil (Cellcept Cap) 250 mg PO BID [facility] Last Admin: 11/13/18 12:48 Dose: 250 mg Ondansetron HCl (Zofran Inj) 4 mg IVP Q6 PRN PRN Reason: Nausea/Vomiting Prednisone (Prednisone Tab) 5 mg PO DAILY [facility] Last Admin: 11/13/18 12:50 Dose: 5 mg Tacrolimus (Prograf Cap) 5 mg PO BID [facility] Last Admin: 11/13/18 12:50 Dose: 5 mg - Labs Labs: 11/13/18 06:30 11/13/18 06:30 PT 12.2 Seconds (9.8-13.1) 11/12/18 08:00 INR 1.1 11/12/18 08:00 APTT 29.1 Seconds (25.6-37.1) 11/12/18 08:00
[2018-11-13] MEDS ORDERED: Insulin Detemir 100 Units/ml Inj SC SCH (22:00)
[2018-11-14] MEDS: Aztreonam 1 GM in Sodium Chloride 0.9% 100 ML IVPB SCH ×2 (05:35→16:08)
[2018-11-14] MEDS: Lactated Ringer's 1,000 ML IV SCH ×2 (05:36→05:37)
[2018-11-14 06:18] LABS: BASO % 0.3 % (0.0-2.0); EOS # 0.1 K/uL (0.0-0.7); EOS % 0.8 % (0.0-4.0); HEMOGLOBIN 11.1 g/dL (12.0-16.0); LYMPH # 1.8 K/uL (1.0-4.3); LYMPH % 24.5 % (20.0-40.0); MEAN CELL VOLUME 93.2 fl (81.0-99.0); MEAN CORPUSCULAR HEMOGLOBIN 30.5 pg (27.0-31.0); MEAN CORPUSCULAR HGB CONC 32.7 g/dL (33.0-37.0); MEAN PLATELET VOLUME 8.6 fl (7.2-11.7); MONO # 0.8 K/uL (0.0-0.8); MONO % 10.7 % (0.0-10.0); NEUT # 4.6 K/uL (1.8-7.0); NEUT % 63.7 % (50.0-75.0); RBC 3.64 Mil/uL (3.80-5.20); RED CELL DISTRIBUTION WIDTH 15.1 % (11.5-14.5); WHITE BLOOD COUNT 7.2 K/uL (4.8-10.8)
[2018-11-14] MEDS: Insulin Regular 100 units/ml SC SCH ×3 (06:50→17:02)
[2018-11-14 07:09] LABS: BLOOD UREA NITROGEN 15 mg/dl (7-17); CALCIUM 10.2 mg/dL (8.4-10.2); GFR NON-AFRICAN AMERICAN > 60
--- NOTE | 2018-11-14 09:27 | CP.PCM.PN ---
Objective - Vital Signs/Intake and Output Vital Signs (last 24 hours): Temp Pulse Resp BP Pulse Ox 97.5 F L 55 L 18 127/59 L 96 11/14/18 09:00 11/14/18 09:00 11/14/18 09:00 11/14/18 09:00 11/14/18 09:00 - Medications Medications: Current Medications Amlodipine Besylate (Norvasc) 5 mg PO DAILY [facility] Last Admin: 11/13/18 12:49 Dose: 5 mg Dextrose (Dextrose 50% Inj) 0 ml IV STAT PRN; Protocol PRN Reason: Hypoglycemia Protocol Dextrose (Glutose 15) 0 gm PO ONCE PRN; Protocol PRN Reason: Hypoglycemia Protocol Enoxaparin Sodium (Lovenox) 40 mg SC DAILY [facility]; Protocol Last Admin: 11/13/18 12:29 Dose: 40 mg Gabapentin (Neurontin) 300 mg PO HS [facility] Last Admin: 11/13/18 21:51 Dose: 300 mg Glucagon (Glucagen Diagnostic Kit) 0 mg IM STAT PRN; Protocol PRN Reason: Hypoglycemia Protocol Aztreonam 1 gm/ Sodium (Chloride) 100 mls @ 100 mls/hr IVPB Q12@0500,1700 [facility]; Protocol Last Admin: 11/14/18 05:35 Dose: 100 mls/hr Lactated Ringer's (Lactated Ringer's) 1,000 mls @ 120 mls/hr IV .Q8H20M [facility] Last Admin: 11/14/18 05:37 Dose: 120 mls/hr Insulin Detemir (Levemir) 6 units SC [facility] Last Admin: 11/13/18 21:50 Dose: 6 units Insulin Human Regular (Humulin R) 0 units SC ACCU-CHECK [facility]; Protocol Last Admin: 11/14/18 06:50 Dose: Not Given Mycophenolate Mofetil (Cellcept Cap) 250 mg PO BID [facility] Last Admin: 11/13/18 20:53 Dose: 250 mg Ondansetron HCl (Zofran Inj) 4 mg IVP Q6 PRN PRN Reason: Nausea/Vomiting Prednisone (Prednisone Tab) 5 mg PO DAILY [facility] Last Admin: 11/13/18 12:50 Dose: 5 mg Tacrolimus (Prograf Cap) 5 mg PO BID [facility] Last Admin: 11/13/18 20:53 Dose: 5 mg - Labs Labs: 11/14/18 04:20 11/14/18 04:20 PT 12.2 Seconds (9.8-13.1) 11/12/18 08:00 INR 1.1 11/12/18 08:00 APTT 29.1 Seconds (25.6-37.1) 11/12/18 08:00
[2018-11-14] MEDS: Enoxaparin 40 mg Syringe SC SCH (09:29)
--- NOTE | 2018-11-14 12:29 | PQF ---
PROVIDER RESPONSE TEXT: Uncontrolled Type 2 DM with polyneuropathy, hyperglycemia, and Hx of ESRD due to Diabetic nephropathy . Currently renal transplant status REVIEWER QUERY TEXT: Diabetic Associated Manifestations Physician?s Documentation Request This Form is Not a Permanent Document in the Medical Record Pt Name: BARBARA PASCUAL MR #: [id number] Payor: MEDICAID HMO Unit/Bed: [place] [id number] Adm Date: 11/12/2018 2:42:00 PM Reviewer: Steff Anderson Ext. Query Date: 11/14/2018 11:20:50 AM Diabetic Associated Manifestations [id number] By submitting this query, we are merely seeking further clarification of documentation to accurately reflect all conditions that you are monitoring, evaluating, treating or that extend the hospitalizati on or utilize additional resources of care. Please utilize your independent clinical judgment when ad dressing the question(s) below. Dear Doctor Juliane Gill, The patient?s Clinical Indicators include: - Please specify any manifestations associated / due to diabetes Such as: --DM with Hyperglycemia -- Diabetes with renal manifestation -- Diabetes with neurologic manifestation -- Diabetes with ophthalmic manifestation -- Diabetes with peripheral circulatory manifestation -- Other, please specify Random glucose: 214-.206->84 POC: 236->242->219->207->224->224 H and P incudes: DM chronic, POC 236 Insulin SS Accuchecks hypoglycemic protocol -Insulin PLEASE DOCUMENT ANY ADDITIONAL DIAGNOSES AND/OR SPECIFICITY IN THE PROGRESS NOTES AND/OR DISCHARGE HU MMARY. Clinically unable to determine/unknown Disagree with the above request Need to discuss Query created by: Steff Anderson on 11/14/2018 11:20 AM Electronically signed by: Jian Painter 11/14/2018 12:25 PM
--- NOTE | 2018-11-14 14:18 | CP.PCM.DIS ---
<Juliane Gill - Last Filed: 11/14/18 14:18> Provider - Provider Date of Admission: 11/12/18 14:42 Attending physician: Charlotte Peace DO Primary care physician: Dr. Jian Painter Consults: 11/12/18 15:51 Nephrology Consult Routine Comment: Consulting Provider: Iza Glez Consulting Physician: Iza Glez Reason for Consult: Complicated UTI/Kidney transplant status 11/12/18 15:54 Infectious Disease Consult Routine Comment: Consulting Provider: Noel Rodriguez Consulting Physician: Noel Rodriguez Reason for Consult: Complicated UTI/renal transplant/Abx management 11/12/18 23:28 Nursing Referral for Wound Care Routine Comment: Physician Instructions: Reason For Exam: susan scale protocol Time Spent in preparation of Discharge (in minutes): 10 Diagnosis - Discharge Diagnosis (1) Complicated UTI (urinary tract infection) Status: Acute Comment: 7 days of aztreonam iV. D/C to [facility] (2) Renal transplant recipient Status: Acute Comment: stable (3) Back pain Status: Acute Comment: chronic, controlled with gabapentin Hospital Course - Lab Results Lab Results: Micro Results 11/12/18 19:26 Urine,Clean Catch Urine Culture - Preliminary Gram Negative Miles Most Recent Lab Values WBC 7.2 K/uL (4.8-10.8) 11/14/18 04:20 RBC 3.64 Mil/uL (3.80-5.20) L 11/14/18 04:20 Hgb 11.1 g/dL (12.0-16.0) L 11/14/18 04:20 Hct 33.9 % (34.0-47.0) L 11/14/18 04:20 MCV 93.2 fl (81.0-99.0) 11/14/18 04:20 MCH 30.5 pg (27.0-31.0) 11/14/18 04:20 MCHC 32.7 g/dL (33.0-37.0) L 11/14/18 04:20 RDW 15.1 % (11.5-14.5) H 11/14/18 04:20 Plt Count 144 K/uL (130-400) 11/14/18 04:20 MPV 8.6 fl (7.2-11.7) 11/14/18 04:20 Neut % (Auto) 63.7 % (50.0-75.0) 11/14/18 04:20 Lymph % (Auto) 24.5 % (20.0-40.0) 11/14/18 04:20 [place] % (Auto) 10.7 % (0.0-10.0) H 11/14/18 04:20 Eos % (Auto) 0.8 % (0.0-4.0) 11/14/18 04:20 Baso % (Auto) 0.3 % (0.0-2.0) 11/14/18 04:20 Neut # (Auto) 4.6 K/uL (1.8-7.0) 11/14/18 04:20 Lymph # (Auto) 1.8 K/uL (1.0-4.3) 11/14/18 04:20 [place] # (Auto) 0.8 K/uL (0.0-0.8) 11/14/18 04:20 Eos # (Auto) 0.1 K/uL (0.0-0.7) 11/14/18 04:20 Baso # (Auto) 0.0 K/uL (0.0-0.2) 11/14/18 04:20 Neutrophils % (Manual) 84 % (42-75) H 11/13/18 06:30 Band Neutrophils % 1 % (0-2) 11/13/18 06:30 Lymphocytes % (Manual) 9 % (20-50) L 11/13/18 06:30 Monocytes % (Manual) 6 % (0-10) 11/13/18 06:30 Platelet Estimate Normal (NORMAL) 11/13/18 06:30 Giant Platelets Present 11/13/18 06:30 Hypochromasia (manual) Slight 11/13/18 06:30 PT 12.2 Seconds (9.8-13.1) 11/12/18 08:00 INR 1.1 11/12/18 08:00 APTT 29.1 Seconds (25.6-37.1) 11/12/18 08:00 Sodium 140 mmol/l (132-148) 11/14/18 04:20 Potassium 3.9 MMOL/L (3.6-5.0) 11/14/18 04:20 Chloride 109 mmol/L (98-107) H 11/14/18 04:20 Carbon Dioxide 25 mmol/L (22-30) 11/14/18 04:20 Anion Gap 10 (10-20) 11/14/18 04:20 BUN 15 mg/dl (7-17) 11/14/18 04:20 Creatinine 0.7 mg/dl (0.7-1.2) 11/14/18 04:20 Est GFR ( Amer) > 60 11/14/18 04:20 Est GFR (Non-Af Amer) > 60 11/14/18 04:20 POC Glucose (mg/dL) 126 mg/dL (65-110) H 11/14/18 11:34 Random Glucose 84 mg/dL (65-105) 11/14/18 04:20 Calcium 10.2 mg/dL (8.4-10.2) 11/14/18 04:20 Total Bilirubin 0.5 mg/dl (0.2-1.3) 11/12/18 08:00 AST 19 U/L (14-36) 11/12/18 08:00 ALT 19 U/L (9-52) 11/12/18 08:00 Alkaline Phosphatase 82 U/L (38-126) 11/12/18 08:00 Total Protein 7.4 G/DL (6.3-8.2) 11/12/18 08:00 Albumin 4.0 g/dL (3.5-5.0) 11/12/18 08:00 Globulin 3.4 gm/dL (2.2-3.9) 11/12/18 08:00 Albumin/Globulin Ratio 1.2 (1.0-2.1) 11/12/18 08:00 25-OH Vitamin D Total 16.9 NG/ML (30.0-100.0) L 11/13/18 21:30 Procalcitonin < 0.05 NG/ML (0.19-0.49) L 11/12/18 19:44 Urine Color Yellow (YELLOW) 11/12/18 14:30 Urine Clarity Turbid (Clear) 11/12/18 14:30 Urine pH 6.0 (5.0-8.0) 11/12/18 14:30 Ur Specific [place] 1.010 (1.003-1.030) 11/12/18 14:30 Urine Protein 100 mg/dL (NEGATIVE) 11/12/18 14:30 Urine Glucose (UA) Neg mg/dL (NEGATIVE) 11/12/18 14:30 Urine Ketones Negative mg/dL (NEGATIVE) 11/12/18 14:30 Urine Blood Moderate (NEGATIVE) 11/12/18 14:30 Urine Nitrate Positive (NEGATIVE) H 11/12/18 14:30 Urine Bilirubin Negative (NEGATIVE) 11/12/18 14:30 Urine Urobilinogen 0.2-1.0 mg/dL (0.2-1.0) 11/12/18 14:30 Ur Leukocyte Esterase Large Benigno/uL (Negative) 11/12/18 14:30 Urine RBC (Auto) 48 /hpf (0-3) H 11/12/18 14:30 Urine WBC Clumps (Auto) Many /hpf (NONE) H 11/12/18 14:30 Urine Microscopic WBC 2199 /hpf (0-5) H 11/12/18 14:30 Urine Bacteria Mod (<OCC) H 11/12/18 14:30 - Hospital Course Hospital Course: Pt is a 63 yo F with a pmhx of R renal transplant (2005), DM, recurrent UTI presented to the ED due to dysuria, polyuria, nausea and vomiting 6x today, b/l lower back pain. U/A-Nitrates +, large LE, WBC-2199, Mod-bacteria. Urine cx- gram negative rods, CT Abd/Pelvis-transplanted kidney in the right hemipelvis shows 8 to 10 mm hypodensities resembling right renal cysts anteriorly, No obstructing right ureteral calculus or mass or dilation.Ciprofloxacin 400mg Stat, Previous urine culture-done 11/10/18 resistant to Cipro. Infectious Disease consulted- Dr. Rodriguez, Nephrology consulted- Dr. Glez started Aztreonam 1GM/100ML NS Q12H x3days. Pt is afebrile and hemodynamically stable for discharge with 7 more days of Aztreonam IV, still pending urine culture sensitivities. PT to follow up with Dr. Painter in 1 week. Discharge Exam - Head Exam Head Exam: NORMAL INSPECTION - Eye Exam Eye Exam: Normal appearance - ENT Exam ENT Exam: Mucous Membranes Moist - Respiratory Exam Respiratory Exam: Clear to PA & Lateral. absent: Rales, Rhonchi, Wheezes - Cardiovascular Exam Cardiovascular Exam: RRR, +S1, +S2 - GI/Abdominal Exam GI & Abdominal Exam: Normal Bowel Sounds, Soft. absent: Tenderness - Extremities Exam Extremities exam: normal inspection - Back Exam Back exam: absent: CVA tenderness (L), CVA tenderness (R) - Neurological Exam Neurological exam: Alert, Oriented x3 Discharge Plan - Discharge Medications Prescriptions: Aztreonam 1 Gm in NS 100mL [Azactam 1 gm] 1 gm IV Q12H 7 Days #14 ml - Follow Up Plan Condition: STABLE Disposition: HOME/ ROUTINE Instructions: Urinary Tract Infection in Women (DC), Dysuria (GEN) Referrals: Jian Painter MD [Resident] - <Charlotte Peace - Last Filed: 11/14/18 21:35> Provider - Provider Date of Admission: 11/12/18 14:42 Attending physician: Charlotte Peace DO Consults: 11/12/18 15:51 Nephrology Consult Routine Comment: Consulting Provider: Iza Glez Consulting Physician: Iza Glez Reason for Consult: Complicated UTI/Kidney transplant status 11/12/18 15:54 Infectious Disease Consult Routine Comment: Consulting Provider: Noel Rodriguez Consulting Physician: Noel Rodriguez Reason for Consult: Complicated UTI/renal transplant/Abx management 11/12/18 23:28 Nursing Referral for Wound Care Routine Comment: Physician Instructions: Reason For Exam: susan scale protocol Hospital Course - Lab Results Lab Results: Micro Results 11/12/18 19:26 Urine,Clean Catch Urine Culture - Preliminary Gram Negative Miles Most Recent Lab Values WBC 7.2 K/uL (4.8-10.8) 11/14/18 04:20 RBC 3.64 Mil/uL (3.80-5.20) L 11/14/18 04:20 Hgb 11.1 g/dL (12.0-16.0) L 11/14/18 04:20 Hct 33.9 % (34.0-47.0) L 11/14/18 04:20 MCV 93.2 fl (81.0-99.0) 11/14/18 04:20 MCH 30.5 pg (27.0-31.0) 11/14/18 04:20 MCHC 32.7 g/dL (33.0-37.0) L 11/14/18 04:20 RDW 15.1 % (11.5-14.5) H 11/14/18 04:20 Plt Count 144 K/uL (130-400) 11/14/18 04:20 MPV 8.6 fl (7.2-11.7) 11/14/18 04:20 Neut % (Auto) 63.7 % (50.0-75.0) 11/14/18 04:20 Lymph % (Auto) 24.5 % (20.0-40.0) 11/14/18 04:20 [place] % (Auto) 10.7 % (0.0-10.0) H 11/14/18 04:20 Eos % (Auto) 0.8 % (0.0-4.0) 11/14/18 04:20 Baso % (Auto) 0.3 % (0.0-2.0) 11/14/18 04:20 Neut # (Auto) 4.6 K/uL (1.8-7.0) 11/14/18 04:20 Lymph # (Auto) 1.8 K/uL (1.0-4.3) 11/14/18 04:20 [place] # (Auto) 0.8 K/uL (0.0-0.8) 11/14/18 04:20 Eos # (Auto) 0.1 K/uL (0.0-0.7) 11/14/18 04:20 Baso # (Auto) 0.0 K/uL (0.0-0.2) 11/14/18 04:20 Neutrophils % (Manual) 84 % (42-75) H 11/13/18 06:30 Band Neutrophils % 1 % (0-2) 11/13/18 06:30 Lymphocytes % (Manual) 9 % (20-50) L 11/13/18 06:30 Monocytes % (Manual) 6 % (0-10) 11/13/18 06:30 Platelet Estimate Normal (NORMAL) 11/13/18 06:30 Giant Platelets Present 11/13/18 06:30 Hypochromasia (manual) Slight 11/13/18 06:30 PT 12.2 Seconds (9.8-13.1) 11/12/18 08:00 INR 1.1 11/12/18 08:00 APTT 29.1 Seconds (25.6-37.1) 11/12/18 08:00 Sodium 140 mmol/l (132-148) 11/14/18 04:20 Potassium 3.9 MMOL/L (3.6-5.0) 11/14/18 04:20 Chloride 109 mmol/L (98-107) H 11/14/18 04:20 Carbon Dioxide 25 mmol/L (22-30) 11/14/18 04:20 Anion Gap 10 (10-20) 11/14/18 04:20 BUN 15 mg/dl (7-17) 11/14/18 04:20 Creatinine 0.7 mg/dl (0.7-1.2) 11/14/18 04:20 Est GFR ( Amer) > 60 11/14/18 04:20 Est GFR (Non-Af Amer) > 60 11/14/18 04:20 POC Glucose (mg/dL) 240 mg/dL (65-110) H 11/14/18 15:56 Random Glucose 84 mg/dL (65-105) 11/14/18 04:20 Calcium 10.2 mg/dL (8.4-10.2) 11/14/18 04:20 Total Bilirubin 0.5 mg/dl (0.2-1.3) 11/12/18 08:00 AST 19 U/L (14-36) 11/12/18 08:00 ALT 19 U/L (9-52) 11/12/18 08:00 Alkaline Phosphatase 82 U/L (38-126) 11/12/18 08:00 Total Protein 7.4 G/DL (6.3-8.2) 11/12/18 08:00 Albumin 4.0 g/dL (3.5-5.0) 11/12/18 08:00 Globulin 3.4 gm/dL (2.2-3.9) 11/12/18 08:00 Albumin/Globulin Ratio 1.2 (1.0-2.1) 11/12/18 08:00 25-OH Vitamin D Total 16.9 NG/ML (30.0-100.0) L 11/13/18 21:30 Procalcitonin < 0.05 NG/ML (0.19-0.49) L 11/12/18 19:44 PTH Intact Whole [place]ole[place] 81 pg/mL (14-64) H 11/13/18 21:30 Urine Color Yellow (YELLOW) 11/12/18 14:30 Urine Clarity Turbid (Clear) 11/12/18 14:30 Urine pH 6.0 (5.0-8.0) 11/12/18 14:30 Ur Specific [place] 1.010 (1.003-1.030) 11/12/18 14:30 Urine Protein 100 mg/dL (NEGATIVE) 11/12/18 14:30 Urine Glucose (UA) Neg mg/dL (NEGATIVE) 11/12/18 14:30 Urine Ketones Negative mg/dL (NEGATIVE) 11/12/18 14:30 Urine Blood Moderate (NEGATIVE) 11/12/18 14:30 Urine Nitrate Positive (NEGATIVE) H 11/12/18 14:30 Urine Bilirubin Negative (NEGATIVE) 11/12/18 14:30 Urine Urobilinogen 0.2-1.0 mg/dL (0.2-1.0) 11/12/18 14:30 Ur Leukocyte Esterase Large Benigno/uL (Negative) 11/12/18 14:30 Urine RBC (Auto) 48 /hpf (0-3) H 11/12/18 14:30 Urine WBC Clumps (Auto) Many /hpf (NONE) H 11/12/18 14:30 Urine Microscopic WBC 2199 /hpf (0-5) H 11/12/18 14:30 Urine Bacteria Mod (<OCC) H 11/12/18 14:30 Attending/Attestation - Attestation I have personally seen and examined this patient.: Yes I have fully participated in the care of the patient.: Yes I have reviewed all pertinent clinical information, including history, physical exam and plan: Yes Notes (Text): agree with findings and plan as above.
[2018-11-14 16:26] VITALS: RESP 20
[2018-11-14 16:35] VITALS: BP 157/75; PULSE 90; TEMP 98; O2SAT 97
--- NOTE | 2018-11-14 17:06 | CP.PCM.PN ---
Subjective - Date & Time of Evaluation Date of Evaluation: 11/14/18 Time of Evaluation: 17:05 - Subjective Subjective: I D NOTE CULTURE GREW GRAM NEG RODS ,AWAIT IDENTIFICATION CONTINUE AZACTAM RERPEAT URINE CULTURE Objective - Vital Signs/Intake and Output Vital Signs (last 24 hours): Temp Pulse Resp BP Pulse Ox 98 F 90 20 157/75 H 97 11/14/18 16:30 11/14/18 16:30 11/14/18 16:30 11/14/18 16:30 11/14/18 16:30 - Medications Medications: Current Medications Amlodipine Besylate (Norvasc) 5 mg PO DAILY [facility] Last Admin: 11/14/18 09:29 Dose: 5 mg Dextrose (Dextrose 50% Inj) 0 ml IV STAT PRN; Protocol PRN Reason: Hypoglycemia Protocol Dextrose (Glutose 15) 0 gm PO ONCE PRN; Protocol PRN Reason: Hypoglycemia Protocol Enoxaparin Sodium (Lovenox) 40 mg SC DAILY [facility]; Protocol Last Admin: 11/14/18 09:29 Dose: 40 mg Gabapentin (Neurontin) 300 mg PO HS [facility] Last Admin: 11/13/18 21:51 Dose: 300 mg Glucagon (Glucagen Diagnostic Kit) 0 mg IM STAT PRN; Protocol PRN Reason: Hypoglycemia Protocol Aztreonam 1 gm/ Sodium (Chloride) 100 mls @ 100 mls/hr IVPB Q12@0500,1700 [facility]; Protocol Last Admin: 11/14/18 16:08 Dose: 100 mls/hr Lactated Ringer's (Lactated Ringer's) 1,000 mls @ 120 mls/hr IV .Q8H20M [facility] Last Admin: 11/14/18 05:37 Dose: 120 mls/hr Insulin Detemir (Levemir) 6 units SC HS [facility] Last Admin: 11/13/18 21:50 Dose: 6 units Insulin Human Regular (Humulin R) 0 units SC ACCU-CHECK [facility]; Protocol Last Admin: 11/14/18 13:53 Dose: Not Given Mycophenolate Mofetil (Cellcept Cap) 250 mg PO BID [facility] Last Admin: 11/14/18 16:12 Dose: 250 mg Ondansetron HCl (Zofran Inj) 4 mg IVP Q6 PRN PRN Reason: Nausea/Vomiting Prednisone (Prednisone Tab) 5 mg PO DAILY [facility] Last Admin: 11/14/18 09:29 Dose: 5 mg Tacrolimus (Prograf Cap) 5 mg PO BID [facility] Last Admin: 11/14/18 09:30 Dose: 5 mg - Labs Labs: 11/14/18 04:20 11/14/18 04:20 PT 12.2 Seconds (9.8-13.1) 11/12/18 08:00 INR 1.1 11/12/18 08:00 APTT 29.1 Seconds (25.6-37.1) 11/12/18 08:00
== END 2018-11-14 20:09 | DRG 320 ==
LOC: H.ER 06:04 → H.ERHOLD 14:42 → H.MEDSURG1 20:55
PROVIDERS: ADMIT Student in an Organized Health Care Education/Training Program; ATTEND Student in an Organized Health Care Education/Training Program
DX: N39.0 Urinary tract infection, site not specified (principal); N18.6 End stage renal disease; I12.0 Hypertensive chronic kidney disease with stage 5 chronic kidney disease or end stage renal disease; E11.42 Type 2 diabetes mellitus with diabetic polyneuropathy; E11.21 Type 2 diabetes mellitus with diabetic nephropathy; E11.22 Type 2 diabetes mellitus with diabetic chronic kidney disease; Z94.0 Kidney transplant status; B96.20 Unspecified Escherichia coli [E. coli] as the cause of diseases classified elsewhere; Z16.23 Resistance to quinolones and fluoroquinolones; E11.65 Type 2 diabetes mellitus with hyperglycemia; E83.52 Hypercalcemia; D63.1 Anemia in chronic kidney disease; K21.9 Gastro-esophageal reflux disease without esophagitis; E78.5 Hyperlipidemia, unspecified; E78.00 Pure hypercholesterolemia, unspecified; K57.90 Diverticulosis of intestine, part unspecified, without perforation or abscess without bleeding; M19.90 Unspecified osteoarthritis, unspecified site; Z87.440 Personal history of urinary (tract) infections; Z90.49 Acquired absence of other specified parts of digestive tract; Z79.84 Long term (current) use of oral hypoglycemic drugs; Z88.1 Allergy status to other antibiotic agents; Z91.041 Radiographic dye allergy status; Z91.040 Latex allergy status

== ENCOUNTER 2018-12-04 20:53 | Inpatient (IN) | payer MEDICAID ==
[2018-12-04 20:53] VITALS: BMI 28.1
[2018-12-04 22:54] LABS: BASO # 0.1 K/uL (0.0-0.2); BASO % 0.8 % (0.0-2.0); EOS % 0.2 % (0.0-4.0); HEMOGLOBIN 13.5 g/dL (12.0-16.0); LYMPH # 1.8 K/uL (1.0-4.3); LYMPH % 19.9 % (20.0-40.0); MEAN CELL VOLUME 92.1 fl (81.0-99.0); MEAN CORPUSCULAR HEMOGLOBIN 30.6 pg (27.0-31.0); MEAN CORPUSCULAR HGB CONC 33.2 g/dL (33.0-37.0); MEAN PLATELET VOLUME 8.5 fl (7.2-11.7); MONO # 0.8 K/uL (0.0-0.8); MONO % 8.9 % (0.0-10.0); NEUT # 6.4 K/uL (1.8-7.0); NEUT % 70.2 % (50.0-75.0); NRBC % 0.2 % (0.0-0.0); RBC 4.41 Mil/uL (3.80-5.20); RED CELL DISTRIBUTION WIDTH 15.3 % (11.5-14.5); WHITE BLOOD COUNT 9.1 K/uL (4.8-10.8)
[2018-12-04 23:15] LABS: TROPONIN I 0.055 ng/mL (0.00-0.120)
[2018-12-04 23:21] LABS: ALB/GLOB RATIO 1.3 (1.0-2.1); ALBUMIN 4.3 g/dL (3.5-5.0); CALCIUM 11.8 mg/dL (8.4-10.2)
[2018-12-04] MEDS ORDERED: Albuterol 0.083% Inhal Sol (2.5 mg/3 mL) UD INH STA (23:40)
[2018-12-04] MEDS ORDERED: Insulin Regular 100 units/ml IVP STA (23:52)
[2018-12-05] MEDS ORDERED: Insulin Regular 100 units/ml ONE (00:24)
[2018-12-05] MEDS ORDERED: Albuterol 0.083% Inhal Sol (2.5 mg/3 mL) UD ONE (00:24)
--- NOTE | 2018-12-05 01:32 | ED PDOC ---
HPI: Abdomen Time Seen by Provider: 12/04/18 20:58 Chief Complaint (Nursing): Abdominal Pain Chief Complaint (Provider): Epigastric pain, nausea History Per: Patient History/Exam Limitations: no limitations Onset/Duration Of Symptoms: Days (2 weeks ) Location Of Pain/Discomfort: RUQ, Epigastric Quality Of Discomfort: Dull, Pressure Associated Symptoms: Nausea, Loss Of Appetite. denies: Fever, Chills, Vomiting Exacerbating Factors: None Alleviating Factors: None Additional Complaint(s): 63 yo female with HTN, DM, CKD and CAD presents for evaluation of epigastric p ain. PT states it has been going on for 2 weeks. PT states pain is dull/pressure. Pt also reports nausea and decreased appetite for 2 weeks. PT was sent from [facility] because gallbladder showed gallstones. PT denies current pain. Pt states she does not currently have dialysis. Past Medical History Reviewed: Historical Data, Nursing Documentation, Vital Signs Vital Signs: Last Vital Signs Temp 98.9 F 12/04/18 20:57 Pulse 108 H 12/04/18 23:45 Resp 18 12/04/18 20:57 BP 120/67 12/04/18 20:57 Pulse Ox 97 12/04/18 20:57 Primary Care Provider: Palomo Joy - Medical History PMH: Anemia, Arthritis, Back Problems, Diabetes, Diverticulitis, Fractures (righthip), HTN, Hypercholesterolemia, Hyperthyroidism, End Stage Renal Disease (s/p transplant), Chronic Kidney Disease Denies: HIV - Surgical History Surgical History: - Family History Family History: States: Unknown Family Hx - Home Medications Home Medications: Ambulatory Orders Medication Instructions Recorded Gabapentin [Neurontin] 300 mg PO HS 11/12/18 Home Med 500 mg PO BID 11/12/18 Metformin HCl [Glucophage] 1,000 mg PO BID 11/12/18 Prednisone [Eber] 5 mg PO DAILY 11/12/18 Tacrolimus [Prograf] 5 mg PO BID 11/12/18 amLODIPine [Norvasc] 5 mg PO DAILY 11/12/18 Enoxaparin [Lovenox] 40 mg SC DAILY syr 11/14/18 Alogliptin Benzoate [Nesina] 25 mg PO DAILY 12/05/18 Loperamide HCl [Imodium A-D] 2 mg PO Q6H PRN 12/05/18 Pioglitazone [Actos] 45 mg PO DAILY 12/05/18 - Allergies Allergies/Adverse Reactions: Allergies Allergy/AdvReac Type Severity Reaction Status Date / Time cefazolin Allergy ITCHING Verified 12/04/18 20:57 iodine Allergy ITCHING Verified 12/04/18 20:57 latex Allergy ITCHING Verified 12/04/18 20:57 vancomycin Allergy ITCHING Verified 12/04/18 20:57 Review of Systems ROS Statement: Except As Marked, All Systems Reviewed And Found Negative Constitutional: Negative for: Fever, Chills Gastrointestinal: Positive for: Nausea, Vomiting, Abdominal Pain. Negative for: Diarrhea Physical Exam - Reviewed Nursing Documentation Reviewed: Yes Vital Signs Reviewed: Yes - Physical Exam Appears: Positive for: Well, Non-toxic, No Acute Distress Head Exam: Positive for: ATRAUMATIC, NORMAL INSPECTION, NORMOCEPHALIC Skin: Positive for: Normal Color, Warm, DRY Eye Exam: Positive for: Normal appearance ENT: Positive for: Normal ENT Inspection Neck: Positive for: Normal, Painless ROM Cardiovascular/Chest: Positive for: Regular Rate, Rhythm Respiratory: Positive for: CNT, Normal Breath Sounds Gastrointestinal/Abdominal: Positive for: Soft, Tenderness (Mild RUQ, epigastric ) Back: Positive for: Normal Inspection Extremity: Positive for: Normal ROM Neurological/Psych: Positive for: Awake, Alert, Normal Tone - Laboratory Results Result Diagrams: 12/04/18 22:45 12/04/18 22:45 Lab Results: Troponin I 0.0550 ng/mL (0.00-0.120) 12/04/18 22:45 Total Bilirubin 0.5 mg/dl (0.2-1.3) 12/04/18 22:45 AST 27 U/L (14-36) 12/04/18 22:45 ALT 18 U/L (9-52) 12/04/18 22:45 Alkaline Phosphatase 80 U/L (38-126) 12/04/18 22:45 Total Protein 7.6 G/DL (6.3-8.2) 12/04/18 22:45 Albumin 4.3 g/dL (3.5-5.0) 12/04/18 22:45 Globulin 3.3 gm/dL (2.2-3.9) 12/04/18 22:45 Albumin/Globulin Ratio 1.3 (1.0-2.1) 12/04/18 22:45 Lipase 220 U/L (23-300) 12/04/18 22:45 - ECG O2 Sat by Pulse Oximetry: 97 Pulse Ox Interpretation: Normal Medical Decision Making Medical Decision Making: Elevated BUN and creatinine. Hyperkalemia. Labs reviewed with Dr. Galicia. Medications ordered for hyperkalemia. EKG ordered. Dr. Galicia discussed with Dr. Joy for admission. Disposition - Clinical Impression Clinical Impression: Hyperkalemia, Abdominal pain - Patient ED Disposition Is Patient to be Admitted: Yes - Disposition Disposition Time: 01:34 Condition: STABLE
[2018-12-05 07:22] LABS: HEMOGLOBIN 12.2 g/dL (12.0-16.0); MEAN CORPUSCULAR HEMOGLOBIN 29.5 pg (27.0-31.0); MEAN CORPUSCULAR HGB CONC 32.4 g/dL (33.0-37.0); RBC 4.13 Mil/uL (3.80-5.20); RED CELL DISTRIBUTION WIDTH 15.8 % (11.5-14.5); WHITE BLOOD COUNT 9.7 K/uL (4.8-10.8)
[2018-12-05 07:25] LABS: ALB/GLOB RATIO 1.3 (1.0-2.1); CALCIUM 11.7 mg/dL (8.4-10.2)
[2018-12-05 07:49] LABS: T3 0.505 nmol/L (1.49-2.60)
--- NOTE | 2018-12-05 08:01 | CP.PCM.HP ---
<Malinda Castillo - Last Filed: 12/05/18 09:44> History of Present Illness - History of Present Illness History of Present Illness: 63 yo female with HTN, DM, CKD and CAD presents for evaluation of epigastric pain. PT states it has been going on for 2 weeks. PT states pain is dull/pressure. Pt also reports nausea and decreased appetite for 2 weeks. PT was sent from long term because gallbladder US showed gallstones. PT denies current pain, also denies N/F/V/D/C. No urinary sx. PMD: at clinic PMHx: Renal transplant (2005), DM, Arthritis, Diverticulosis, HTN, HLD, Reflux, Anemia, back compression fracture Allergies: cefazolin, iodine, vancomycin, latex Medications: Metformin 500mg BID, Norvasc 5mg QD, Gabapentin 300mg HS, Prednisone 5mg Daily, Tacrolimus 5mg BID, Mycophenolate 250mg BID Family hx: Father: DM, CKD Mom: HTN, stroke, Asthma Surg hx: 2005 Right renal transplant, sigmoid colon resection 2017 Present on Admission - Present on Admission Any Indicators Present on Admission: No Review of Systems - Review of Systems All systems: reviewed and no additional remarkable complaints except (HPI) Past Patient History - Infectious Disease Hx of Infectious Diseases: None - Past Medical History & Family History Past Medical History?: Yes - Past Social History Smoking Status: Never Smoked - CARDIAC Hx Cardiac Disorders: Yes Hx Hypercholesterolemia: Yes Hx Hypertension: Yes - PULMONARY Hx Respiratory Disorders: No - NEUROLOGICAL Hx Neurological Disorder: No - HEENT Hx HEENT Problems: Yes Hx Glaucoma: Yes - RENAL Hx Chronic Kidney Disease: Yes - ENDOCRINE/METABOLIC Hx Endocrine Disorders: Yes Hx Hyperthyroidism: Yes - HEMATOLOGICAL/ONCOLOGICAL Hx Blood Disorders: Yes Hx Anemia: Yes Hx Human Immunodeficiency Virus (HIV): No - INTEGUMENTARY Hx Dermatological Problems: Yes Other/Comment: Hx pressure ulcer - MUSCULOSKELETAL/RHEUMATOLOGICAL Hx Musculoskeletal Disorders: Yes Hx Arthritis: Yes Hx Falls: No Hx Fractures: Yes (righthip) - GASTROINTESTINAL Hx Gastrointestinal Disorders: Yes Hx Diverticulitis: Yes - GENITOURINARY/GYNECOLOGICAL Hx Genitourinary Disorders: Yes Hx Urinary Tract Infection: Yes - PSYCHIATRIC Hx Psychophysiologic Disorder: No Hx Substance Use: No - SURGICAL HISTORY Hx Surgeries: Yes Hx Arteriovenous Shunt: Yes (bilateral arms) Hx Section: Yes (x2) Hx Kidney Transplant: Yes (Right Kidney 2005) Hx Vascular Surgery: Yes Hx Vascular Access Device: Yes Other/Comment: DIVERTICULITIS SURGERY 06/2017 - ANESTHESIA Hx Anesthesia: Yes Hx Anesthesia Reactions: No Hx Malignant Hyperthermia: No Meds Allergies/Adverse Reactions: Allergies Allergy/AdvReac Type Severity Reaction Status Date / Time cefazolin Allergy ITCHING Verified 12/04/18 20:57 iodine Allergy ITCHING Verified 12/04/18 20:57 latex Allergy ITCHING Verified 12/04/18 20:57 vancomycin Allergy ITCHING Verified 12/04/18 20:57 Physical Exam - Constitutional Appears: Non-toxic, No Acute Distress - Head Exam Head Exam: NORMAL INSPECTION - Eye Exam Eye Exam: EOMI, PERRL - ENT Exam ENT Exam: Mucous Membranes Moist - Neck Exam Neck exam: Positive for: Full Rom. Negative for: Tenderness, Thyromegaly - Respiratory Exam Respiratory Exam: Clear to Auscultation Bilateral, NORMAL BREATHING PATTERN. absent: Chest Wall Tenderness - Cardiovascular Exam Cardiovascular Exam: REGULAR RHYTHM, +S1, +S2. absent: Tachycardia - GI/Abdominal Exam GI & Abdominal Exam: Normal Bowel Sounds, Soft, Tenderness (mild diffuse). absent: Distended, Guarding - Extremities Exam Extremities exam: Negative for: calf tenderness, pedal edema - Neurological Exam Neurological exam: Alert, CN II-XII Intact, Oriented x3 - Skin Skin Exam: Dry, Warm Results - Vital Signs Recent Vital Signs: Last Vital Signs Temp 98.2 F 12/05/18 05:19 Pulse 106 H 12/05/18 05:19 Resp 18 12/05/18 05:19 BP 102/63 12/05/18 05:19 Pulse Ox 96 12/05/18 05:19 - Labs Result Diagrams: 12/05/18 06:00 12/05/18 06:00 Labs: Laboratory Results - last 24 hr 12/04/18 12/04/18 12/05/18 22:45 22:45 04:17 WBC 9.1 RBC 4.41 Hgb 13.5 D Hct 40.6 MCV 92.1 MCH 30.6 MCHC 33.2 RDW 15.3 H Plt Count 232 MPV 8.5 Neut % (Auto) 70.2 Lymph % (Auto) 19.9 L Park % (Auto) 8.9 Eos % (Auto) 0.2 Baso % (Auto) 0.8 Neut # (Auto) 6.4 Lymph # (Auto) 1.8 Park # (Auto) 0.8 Eos # (Auto) 0.0 Baso # (Auto) 0.1 Sodium 136 Potassium 6.2 H* D 5.2 H Chloride 107 Carbon Dioxide 15 L Anion Gap 20 BUN 86 H Creatinine 2.5 H Est GFR ( Amer) 24 Est GFR (Non-Af Amer) 20 POC Glucose (mg/dL) Random Glucose 122 H Calcium 11.8 H Total Bilirubin 0.5 AST 27 ALT 18 Alkaline Phosphatase 80 Troponin I 0.0550 Total Protein 7.6 Albumin 4.3 Globulin 3.3 Albumin/Globulin Ratio 1.3 Triglycerides Cholesterol LDL Cholesterol Direct HDL Cholesterol Lipase 220 Thyroxine (T4) Total T3 TSH 3rd Generation 12/05/18 12/05/18 12/05/18 05:37 06:00 06:00 WBC 9.7 RBC 4.13 Hgb 12.2 Hct 37.6 MCV 91.0 MCH 29.5 MCHC 32.4 L RDW 15.8 H Plt Count 244 MPV Neut % (Auto) Lymph % (Auto) Park % (Auto) Eos % (Auto) Baso % (Auto) Neut # (Auto) Lymph # (Auto) Park # (Auto) Eos # (Auto) Baso # (Auto) Sodium 137 Potassium 5.3 H Chloride 107 Carbon Dioxide 16 L Anion Gap 19 BUN 83 H Creatinine 2.9 H Est GFR ( Amer) 20 Est GFR (Non-Af Amer) 16 POC Glucose (mg/dL) 105 Random Glucose 106 H Calcium 11.7 H Total Bilirubin 0.3 AST 18 ALT 17 Alkaline Phosphatase 84 Troponin I Total Protein 7.2 Albumin 4.0 Globulin 3.2 Albumin/Globulin Ratio 1.3 Triglycerides 312 H D Cholesterol 127 LDL Cholesterol Direct 36 HDL Cholesterol 48 Lipase Thyroxine (T4) 8.08 Total T3 0.505 L TSH 3rd Generation 0.20 L Assessment & Plan - Assessment and Plan (Free Text) Assessment: 63 yo female patient with PMH of Renal transplant (2005), DM, Arthritis, Diverticulosis, HTN, HLD, Reflux, Anemia admitted with worsening renal function and hyperkalemia. Plan: - VSS tho tachy on the monitor - Hyperkalemia with worsening creatinine - Nephro consulted, input appreciated - IV fluids - continue home meds - Kyexalate - f/u abd US - DVT ppx - rest of plan as ordered Case seen and examined with Dr Joy. <Palomo Joy - Last Filed: 12/06/18 15:22> Results - Vital Signs Recent Vital Signs: Last Vital Signs Temp 98.4 F 12/06/18 12:04 Pulse 79 12/06/18 12:04 Resp 18 12/06/18 12:04 BP 112/69 12/06/18 12:04 Pulse Ox 97 12/06/18 12:04 - Labs Result Diagrams: 12/06/18 05:45 12/06/18 05:45 Labs: Laboratory Results - last 24 hr 12/05/18 12/05/18 12/06/18 16:06 21:10 05:45 WBC 7.6 RBC 3.61 L Hgb 10.9 L Hct 32.8 L MCV 90.8 MCH 30.2 MCHC 33.3 RDW 15.4 H Plt Count 185 Sodium Potassium Chloride Carbon Dioxide Anion Gap BUN Creatinine Est GFR ( Amer) Est GFR (Non-Af Amer) POC Glucose (mg/dL) 154 H 152 H Random Glucose Calcium Magnesium Total Bilirubin AST ALT Alkaline Phosphatase Total Protein Albumin Globulin Albumin/Globulin Ratio 12/06/18 12/06/18 12/06/18 05:45 06:34 11:31 WBC RBC Hgb Hct MCV MCH MCHC RDW Plt Count Sodium 133 Potassium 3.8 Chloride 105 Carbon Dioxide 17 L Anion Gap 15 BUN 78 H Creatinine 3.2 H Est GFR ( Amer) 18 Est GFR (Non-Af Amer) 15 POC Glucose (mg/dL) 101 157 H Random Glucose 98 Calcium 10.4 H Magnesium 1.5 L Total Bilirubin 0.3 AST 16 ALT 13 Alkaline Phosphatase 62 Total Protein 6.1 L Albumin 3.2 L Globulin 2.9 Albumin/Globulin Ratio 1.1 Assessment & Plan - Assessment and Plan (Free Text) Assessment: Patient was personally seen and examined by me in rounds with residents. Available labs and diagnostic data reviewed. Case, Patient's condition and management plan discussed with residents in rounds. Agree with resident's progress note. Plan: As ordered.
[2018-12-05] MEDS ORDERED: Home Med 1 UNIT PO SCH (09:00)
[2018-12-05] MEDS: Enoxaparin 30 mg Syringe SC SCH (09:07)
[2018-12-05] MEDS: Sodium Chloride 0.45% 1,000 ML IV SCH ×2 (10:51→21:59)
--- NOTE | 2018-12-05 10:52 | CARD ---
APPROVED REPORT Date of service: 12/04/2018 EKG Measurement Heart [id number] <Conclusion> Sinus tachycardia Otherwise normal ECG
[2018-12-05 12:37] LABS: SQUAMOUS EPITHIAL 5 /hpf (0-5); URINE BACTERIA MANY (<OCC); URINE BILIRUBIN NEGATIVE (NEGATIVE); URINE CLARITY TURBID (Clear); URINE GLUCOSE (UA) 50 mg/dL (NEGATIVE); URINE PROTEIN >=500 mg/dL (NEGATIVE); URINE UROBILINOGEN 0.2-1.0 mg/dL (0.2-1.0); WBC CLUMPS MANY /hpf
[2018-12-05 12:39] LABS: URINE COLOR YELLOW (YELLOW); URINE LEUKOCYTE ESTERASE LARGE Leu/uL (Negative)
[2018-12-05 12:40] LABS: URINE BLOOD MODERATE (NEGATIVE)
[2018-12-06 07:24] LABS: HEMOGLOBIN 10.9 g/dL (12.0-16.0); MEAN CELL VOLUME 90.8 fl (81.0-99.0); MEAN CORPUSCULAR HEMOGLOBIN 30.2 pg (27.0-31.0); MEAN CORPUSCULAR HGB CONC 33.3 g/dL (33.0-37.0); RBC 3.61 Mil/uL (3.80-5.20); RED CELL DISTRIBUTION WIDTH 15.4 % (11.5-14.5); WHITE BLOOD COUNT 7.6 K/uL (4.8-10.8)
[2018-12-06 08:08] LABS: ALB/GLOB RATIO 1.1 (1.0-2.1); ALBUMIN 3.2 g/dL (3.5-5.0); CALCIUM 10.4 mg/dL (8.4-10.2)
[2018-12-06] MEDS: Enoxaparin 30 mg Syringe SC SCH (09:23)
--- NOTE | 2018-12-06 10:29 | PN ---
DATE: 12/06/2018 SUBJECTIVE: The patient is seen and examined. Interim events noted. Consults noted and appreciated. The patient remains in progressive care unit with telemetry monitoring. The patient feels okay. No chest pain. No shortness of breath. No abdominal pain. PHYSICAL EXAMINATION: GENERAL: The patient is in no acute distress. VITAL SIGNS: Stable. HEART: S1, S2, normal and regular. LUNGS: Good bilateral air exchange. ABDOMEN: Soft, nontender. No organomegaly. No fluid. Bowel sounds are present and normal. EXTREMITIES: No edema, no calf swelling, no tenderness, no acute ischemia. CENTRAL NERVOUS SYSTEM: Essentially unchanged. DIAGNOSTIC DATA: Available diagnostic data reviewed. Telemetry monitoring does not show significant arrhythmias. ASSESSMENT AND PLAN: Overall, the patient's general medical condition is stable. Plan as ordered. Palomo Joy MD
[2018-12-06] MEDS: Sodium Chloride 0.45% 1,000 ML IV SCH (22:18)
[2018-12-07 05:23] LABS: HEMOGLOBIN 10.9 g/dL (12.0-16.0); MEAN CELL VOLUME 90.8 fl (81.0-99.0); MEAN CORPUSCULAR HEMOGLOBIN 29.7 pg (27.0-31.0); MEAN CORPUSCULAR HGB CONC 32.7 g/dL (33.0-37.0); RBC 3.68 Mil/uL (3.80-5.20); RED CELL DISTRIBUTION WIDTH 15.7 % (11.5-14.5); WHITE BLOOD COUNT 7.1 K/uL (4.8-10.8)
[2018-12-07 05:27] LABS: ALB/GLOB RATIO 1.1 (1.0-2.1); ALBUMIN 3.1 g/dL (3.5-5.0); CALCIUM 9.7 mg/dL (8.4-10.2)
--- NOTE | 2018-12-07 08:47 | PN ---
DATE: 12/07/2018 SUBJECTIVE: The patient was seen and examined. Interim events noted. Consults noted and appreciated. The patient remains in progressive care unit with telemetry monitoring. Feels better. Denies any chest pain or shortness of breath. Denies any new urinary symptoms, urinary burning and pain, now is much better. PHYSICAL EXAMINATION: GENERAL: The patient is in no acute distress. VITAL SIGNS: Stable. HEART: S1, S2, normal and regular. LUNGS: Good bilateral air exchange. ABDOMEN: Soft, nontender. No organomegaly. No fluid. Bowel sounds are present and normal. EXTREMITIES: Some edema. No calf swelling, no tenderness. No acute ischemia. CENTRAL NERVOUS SYSTEM: Essentially unchanged, and there is no sign of any acute gross focal motor or sensory neurological deficit. DIAGNOSTIC DATA: Available diagnostic data reviewed. Telemetry monitoring does not show significant arrhythmias. Overall, the patient's general medical condition is fairly improving. Urine culture is positive. Sensitivity is pending. Plan as ordered. Palomo Joy MD
[2018-12-07] MEDS: Enoxaparin 30 mg Syringe SC SCH (09:24)
[2018-12-07] MEDS ORDERED: Potassium Chloride 20 mEq ER Tab PO ONE (18:08)
[2018-12-07 22:45] LABS: SQUAMOUS EPITHIAL 1 /hpf (0-5); URINE BACTERIA OCC (<OCC); URINE BILIRUBIN NEGATIVE (NEGATIVE); URINE BLOOD SMALL (NEGATIVE); URINE CLARITY SLIGHTY-CLOUDY (Clear); URINE COLOR STRAW (YELLOW); URINE GLUCOSE (UA) 50 mg/dL (NEGATIVE); URINE LEUKOCYTE ESTERASE LARGE Leu/uL (Negative); URINE PROTEIN NEGATIVE (NEGATIVE); URINE UROBILINOGEN 0.2-1.0 mg/dL (0.2-1.0)
[2018-12-08 05:48] LABS: HEMOGLOBIN 10.1 g/dL (12.0-16.0); MEAN CELL VOLUME 90.4 fl (81.0-99.0); MEAN CORPUSCULAR HEMOGLOBIN 30.3 pg (27.0-31.0); MEAN CORPUSCULAR HGB CONC 33.5 g/dL (33.0-37.0); RBC 3.32 Mil/uL (3.80-5.20); RED CELL DISTRIBUTION WIDTH 15.3 % (11.5-14.5); WHITE BLOOD COUNT 7.5 K/uL (4.8-10.8)
[2018-12-08 06:08] LABS: ALB/GLOB RATIO 1.1 (1.0-2.1); ALBUMIN 3.1 g/dL (3.5-5.0); CALCIUM 9.2 mg/dL (8.4-10.2)
--- NOTE | 2018-12-08 09:12 | CP.PCM.PCO ---
Assessment & Plan - Assessment and Plan (Free Text) Assessment: pt. with Ecoli UTI pt. will require 1 week of iv abx Azetronam 500 mg iv q12 PT eval pending
[2018-12-08] MEDS: Enoxaparin 30 mg Syringe SC SCH (09:37)
--- NOTE | 2018-12-08 12:50 | PN ---
DATE: 12/08/2018 SUBJECTIVE: The patient seen and examined. Interim events noted. The patient feels much better. Consults noted and appreciated. Nephrology followup and intervention noted and appreciated. The patient feels much. Urinary symptoms resolved. No chest pain or shortness of breath. PHYSICAL EXAMINATION: GENERAL: The patient is in no acute distress. VITAL SIGNS: Stable. HEART: S1 and S2, normal and regular. LUNGS: Good bilateral air exchange. ABDOMEN: Soft, nontender. EXTREMITIES: No edema, no calf swelling, no tenderness, no acute ischemia. CENTRAL NERVOUS SYSTEM: Exam is essentially unchanged. DIAGNOSTIC DATA: Available diagnostic data reviewed. The urine culture results noted. Overall, the patient is clinically improving, will require IV antibiotic which she may be able to get it at subacute place where she was before. We will try to make arrangements for same. The patient is medically stable. Plan as ordered. Palomo Joy MD
[2018-12-09 06:01] LABS: HEMOGLOBIN 9.3 g/dL (12.0-16.0); MEAN CELL VOLUME 91.4 fl (81.0-99.0); MEAN CORPUSCULAR HEMOGLOBIN 30.1 pg (27.0-31.0); MEAN CORPUSCULAR HGB CONC 32.9 g/dL (33.0-37.0); RBC 3.1 Mil/uL (3.80-5.20); RED CELL DISTRIBUTION WIDTH 15.7 % (11.5-14.5); WHITE BLOOD COUNT 5.8 K/uL (4.8-10.8)
[2018-12-09 06:18] LABS: CALCIUM 9.6 mg/dL (8.4-10.2)
--- NOTE | 2018-12-09 07:32 | CP.PCM.PN ---
Subjective - Date & Time of Evaluation Date of Evaluation: 12/09/18 Time of Evaluation: 07:32 - Subjective Subjective: Patient seen and examined today with Dr Joy, lying comfortable on bed, reports feeling better, denies abd pain, nausea, no urinary sx. Priscilla BM No acute overnight events reported. Objective - Vital Signs/Intake and Output Vital Signs (last 24 hours): Temp Pulse Resp BP Pulse Ox 98.2 F 58 L 20 137/64 98 12/09/18 05:33 12/09/18 05:33 12/09/18 05:33 12/09/18 05:33 12/09/18 05:33 - Medications Medications: Current Medications Amlodipine Besylate (Norvasc) 5 mg PO DAILY [facility] Last Admin: 12/08/18 09:37 Dose: 5 mg Gabapentin (Neurontin) 300 mg PO HS [facility] Last Admin: 12/08/18 21:03 Dose: 300 mg Aztreonam 500 mg/ Sodium (Chloride) 50 mls @ 50 mls/hr IVPB Q12 [facility]; Protocol Last Admin: 12/08/18 21:06 Dose: 50 mls/hr Loperamide HCl (Imodium) 2 mg PO Q6H PRN PRN Reason: Diarrhea Mycophenolate Mofetil (Cellcept Cap) 250 mg PO BID [facility] Last Admin: 12/08/18 17:33 Dose: 250 mg Pioglitazone HCl (Actos) 45 mg PO DAILY [facility] Last Admin: 12/05/18 09:07 Dose: 45 mg Prednisone (Prednisone Tab) 5 mg PO DAILY [facility] Last Admin: 12/08/18 12:45 Dose: 5 mg Sitagliptin Phosphate (Januvia) 25 mg PO DAILY [facility] Last Admin: 12/08/18 09:37 Dose: 25 mg Tacrolimus (Prograf Cap) 2 mg PO Q12 [facility] Last Admin: 12/08/18 20:47 Dose: 2 mg - Labs Labs: 12/09/18 04:55 12/09/18 04:55 - Constitutional Appears: Non-toxic, No Acute Distress - Head Exam Head Exam: NORMAL INSPECTION - Eye Exam Eye Exam: EOMI, PERRL - ENT Exam ENT Exam: Mucous Membranes Moist - Respiratory Exam Respiratory Exam: Clear to Ausculation Bilateral, NORMAL BREATHING PATTERN. absent: Chest Wall Tenderness, Decreased Breath Sounds - Cardiovascular Exam Cardiovascular Exam: REGULAR RHYTHM, +S1, +S2. absent: Tachycardia - GI/Abdominal Exam GI & Abdominal Exam: Soft, Normal Bowel Sounds. absent: Distended, Tenderness - Extremities Exam Extremities Exam: absent: Calf Tenderness, Pedal Edema - Neurological Exam Neurological Exam: Alert, Awake, Oriented x3 - Psychiatric Exam Psychiatric exam: Normal Mood - Skin Skin Exam: Dry, Warm Assessment and Plan - Assessment and Plan (Free Text) Assessment: 63 yo female patient with PMH of Renal transplant (2005), DM, Arthritis, Diverticulosis, HTN, HLD, Reflux, Anemia admitted with worsening renal function and hyperkalemia and UTI. Plan: - Hyperkalemia resolved - Renal function improved Cr 1.2 - Nephro consulted, input appreciated - UTI improving - Urine cx pos E coli - on IV abx, will require 1 week of iv abx - continue home meds - DVT ppx - rest of plan as ordered Case seen and examined with Dr Joy.
[2018-12-09 07:50] VITALS: RESP 18; O2SAT 99
[2018-12-09 11:52] VITALS: BP 133/69; PULSE 73; TEMP 97.4
--- NOTE | 2018-12-10 11:42 | PQF ---
PROVIDER RESPONSE TEXT: ARF 2nd UTI, HX renal transplant REVIEWER QUERY TEXT: Documentation Clarification Your help is requested in clarifying the following clinical documentation, if you can please further specify in the medical record and discharge summary. Please clarify if there is an associated diagnosis to go along with the documentation of worsening re nal function. BUN 86-> 51, Cr 2.5, 2.9, 3.2, 2.8, 1.7, GFR 15-> 30 The patient's Clinical Indicators include: Admitted with epigastric pain, nausea and decreased appetite x 2 weeks. ER: Elevated BUN and Creatinine, Hyperkalemia, abdominal pain Rx: IVF Query created by: Giovanna Sims on 12/08/2018 9:08 AM Electronically signed by: Palomo Joy 12/10/2018 11:39 AM
== END 2018-12-09 13:15 | DRG 566 ==
LOC: H.ER 20:53 → H.ERHOLD 12-05 01:01 → H.TEL 12-05 04:24
PROVIDERS: ADMIT Internal Medicine; ATTEND Internal Medicine
DX: E87.5 Hyperkalemia (principal); N17.9 Acute kidney failure, unspecified; N39.0 Urinary tract infection, site not specified; E11.22 Type 2 diabetes mellitus with diabetic chronic kidney disease; I12.0 Hypertensive chronic kidney disease with stage 5 chronic kidney disease or end stage renal disease; N18.6 End stage renal disease; E05.90 Thyrotoxicosis, unspecified without thyrotoxic crisis or storm; Z94.0 Kidney transplant status; B96.20 Unspecified Escherichia coli [E. coli] as the cause of diseases classified elsewhere; E78.00 Pure hypercholesterolemia, unspecified; E78.5 Hyperlipidemia, unspecified; H40.9 Unspecified glaucoma; I25.10 Atherosclerotic heart disease of native coronary artery without angina pectoris; K21.9 Gastro-esophageal reflux disease without esophagitis; K80.20 Calculus of gallbladder without cholecystitis without obstruction; Z82.3 Family history of stroke; Z82.5 Family history of asthma and other chronic lower respiratory diseases; Z87.440 Personal history of urinary (tract) infections; D64.9 Anemia, unspecified; M19.90 Unspecified osteoarthritis, unspecified site; Z79.84 Long term (current) use of oral hypoglycemic drugs; Z79.899 Other long term (current) drug therapy; R94.4 Abnormal results of kidney function studies